=== PATIENT | female | born 1940 | race Caucasian/White ===

== ENCOUNTER 2023-05-17 15:04 | Outpatient (OUT) | payer MEDICARE, BC, SELFPAY ==
--- NOTE | 2023-05-17 15:40 | CT_ITS ---
[address] [address] Patient Name: LAN NASH MRN: [id number] date: 1940 Sex: F Assigned Patient Location: CT Current Patient Location: CT Accession/Order Number: [id number] Exam Date: 05/17/2023 15:29 Report Date: 05/18/2023 08:44 At the request of: EDGAR BORJA Procedure: CT chest high res EXAMINATION: CT chest high res HISTORY: Interstitial pulmonary disease J84.9 COMPARISON: No relevant comparison available. TECHNIQUE: Axial images were obtained at 10 mm intervals during inspiration and expiration in the supine and prone positions. No IV contrast given. Dose reduction techniques were achieved by using automated exposure control and/or adjustment of mA and/or kV according to patient size and/or use of iterative reconstruction technique. FINDINGS: LUNGS: Emphysematous changes and moderate bronchiectasis throughout the lungs. Patchy opacities scattered throughout the lungs, probably peripheral distribution with some essentially stable and others change in configuration; suspected to represent atelectasis/consolidation and areas of scarring. PLEURA: No mass, effusion, or pneumothorax. ERIKA: No mass or adenopathy. MEDIASTINUM: No mass or adenopathy. CHEST WALL: No mass or axillary adenopathy LIMITED ABDOMEN: No suspicious findings. Limited images of the upper abdomen. OTHER: Negative. IMPRESSION: 1. Suspect slight progression of chronic interstitial changes, bronchiectasis, scattered areas of consolidation/atelectasis. Malignancy is felt less likely. Consider follow-up imaging in 6 months to document stability. Electronically authenticated by: YUKI FITZGERALD Date: 05/18/2023 08:44
== END 2023-05-17 15:05 ==
LOC: CT 15:07
PROVIDERS: PCP Family Medicine; Visit Provider Internal Medicine
DX: J84.9 Interstitial pulmonary disease, unspecified (principal)
CPT/HCPCS: 71250

== ENCOUNTER 2023-08-12 13:42 | Outpatient (OUT) | payer MEDICARE, BC, SELFPAY ==
--- NOTE | 2023-08-12 13:45 | CT_ITS ---
[address] [address] Patient Name: LAN NASH MRN: [id number] date: 1940 Sex: F Assigned Patient Location: CT Current Patient Location: CT Accession/Order Number: [id number] Exam Date: 08/12/2023 13:57 Report Date: 08/12/2023 18:38 At the request of: EDGAR BORJA Procedure: CT chest high res EXAMINATION: CT chest high res HISTORY: Interstitial pulmonary disease J84.9 COMPARISON: 05/17/2023 TECHNIQUE: Axial images were obtained at 10 mm intervals during inspiration and expiration in the supine and prone positions. No IV contrast given. Dose reduction techniques were achieved by using automated exposure control and/or adjustment of mA and/or kV according to patient size and/or use of iterative reconstruction technique. FINDINGS: LUNGS: Mild subpleural honeycombing with intralobular septal thickening. Mild bronchiectasis with peribronchial thickening. Patchy opacities largely with a peripheral predominance, grossly stable from the prior exam. PLEURA: No mass, effusion, or pneumothorax. ERIKA: No mass or adenopathy. MEDIASTINUM: No mass or adenopathy. CHEST WALL: No mass or axillary adenopathy LIMITED ABDOMEN: No suspicious findings. Limited images of the upper abdomen. OTHER: Moderate coronary atherosclerosis. CT/CT chest high res IMPRESSION: Chronic interstitial disease bronchiectasis and emphysema, grossly stable from the prior exam Electronically authenticated by: BEV VERDIN Date: 08/12/2023 18:38
== END 2023-08-12 13:43 | disposition home or self-care (01) ==
LOC: CT 13:42
PROVIDERS: PCP Family Medicine; Visit Provider Internal Medicine
DX: J84.9 Interstitial pulmonary disease, unspecified (principal)
CPT/HCPCS: 71250

== ENCOUNTER 2023-08-19 12:10 | Outpatient (OUT) | payer MEDICARE, BC, SELFPAY ==
--- NOTE | 2023-08-19 | XR_ITS ---
The [address] [address] Patient Name: LAN NASH MRN: [id number] date: 1940 Sex: F Assigned Patient Location: [facility] Current Patient Location: [facility] Accession/Order Number: [id number] Exam Date: 08/19/2023 12:30 Report Date: 08/19/2023 13:05 At the request of: NATACHA ONEILL Procedure: XR shoulder RT min 2V PROCEDURE: XR shoulder RT min 2V HISTORY: Right shoulder pain after fall COMPARISON: None. FINDINGS: BONES:Narrowing of the acromioclavicular joint and undersurface osteophytes. Unremarkable humeral head and glenoid. SOFT TISSUES:No visible soft tissue swelling. EFFUSION:None visible. OTHER: Negative. XR/XR shoulder RT min 2V IMPRESSION: 1. No acute bone abnormality. 2. Degenerative changes predominantly involving the acromioclavicular joint. Electronically authenticated by: YUKI FITZGERALD Date: 08/19/2023 13:05
== END 2023-08-19 12:11 | disposition home or self-care (01) ==
LOC: RAD 12:14
PROVIDERS: PCP Family Medicine; Visit Provider Family Medicine
DX: M25.511 Pain in right shoulder (principal)
CPT/HCPCS: 73030

== ENCOUNTER 2023-11-23 13:02 | Outpatient (OUT) | payer MEDICARE, BC, SELFPAY ==
--- NOTE | 2023-11-23 13:04 | CT_ITS ---
[address] [address] Patient Name: LAN NASH MRN: [id number] date: 1940 Sex: F Assigned Patient Location: CT Current Patient Location: CT Accession/Order Number: [id number] Exam Date: 11/23/2023 13:09 Report Date: 11/25/2023 06:27 At the request of: EDGAR BORJA Procedure: CT chest high res EXAMINATION: CT chest high res HISTORY: Interstitial Pulmonary Disease J84.9 COMPARISON: CT chest high-resolution 08/12/2023 TECHNIQUE: Axial images were obtained at 10 mm intervals during inspiration and expiration in the supine and prone positions. No IV contrast given. Dose reduction techniques were achieved by using automated exposure control and/or adjustment of mA and/or kV according to patient size and/or use of iterative reconstruction technique. FINDINGS: LUNGS: Stable moderate chronic interstitial changes, peripheral scarring, mild bronchiectasis, and mild emphysematous changes. PLEURA: Stable scattered areas of pleural thickening. No pleural effusion or pneumothorax. ERIKA: No mass or adenopathy. MEDIASTINUM: No mass or adenopathy. Atherosclerotic coronary artery disease. No pericardial effusion. CHEST WALL: No mass or axillary adenopathy LIMITED ABDOMEN: No suspicious findings. Limited images of the upper abdomen. OTHER: Negative. CT/CT chest high res IMPRESSION: 1. Grossly stable moderate chronic interstitial changes, mild bronchiectasis, emphysematous changes. 2. No appreciable acute infiltrates. Electronically authenticated by: YUKI FITZGERALD Date: 11/25/2023 06:27
== END 2023-11-23 13:03 | disposition home or self-care (01) ==
LOC: CT 13:02
PROVIDERS: PCP Family Medicine; Visit Provider Internal Medicine
DX: J84.9 Interstitial pulmonary disease, unspecified (principal)
CPT/HCPCS: 71250

== ENCOUNTER 2024-02-10 10:08 | Outpatient (RCR) | payer MEDICARE, BC, SELFPAY | END 2024-04-18 16:35 | disposition home or self-care (01) | LOC: PT 10:08 | PROVIDERS: PCP Family Medicine; Visit Provider Family Medicine | DX: R53.1 Weakness (principal); J84.9 Interstitial pulmonary disease, unspecified; E87.1 Hypo-osmolality and hyponatremia | CPT/HCPCS: 97110; 97112; 97163; 97530 ==

== ENCOUNTER 2024-03-13 10:53 | Outpatient (OUT) | payer MEDICARE, BC, SELFPAY ==
--- NOTE | 2024-03-13 10:55 | MM_ITS ---
Patient Name: LAN NASH MR#: [id number] : 1940 Exam Date: 03/13/2024 Ordering Doctor: Non-Staff Physician RADIOLOGY REPORT PROCEDURE: MM TOMOSYNTHESIS SCREENING BI COMPARISON: MG MAMM SCREEN 3D ISAMAR CAD, 03/11/2023. MAMMO POST BIOPSY LEFT, 04/20/2022. INDICATIONS: screening Calculator Name NCI Breast Cancer Risk Assessment Tool 5 Year Breast Cancer Risk 1.20% Lifetime Breast Cancer Risk 1.30% Personal Breast Cancer No Personal Ovarian Cancer No Treatments None Family Cancers Mother with colon cancer at age ~80; Father with lung cancer at age ~60. LOCATION: [facility] BREAST COMPOSITION: Scattered areas fibroglandular density. FINDINGS: DIAGNOSTIC CATEGORY 2--BENIGN FINDING. NO CHANGE FROM COMPARISON. Scattered benign-appearing nodules are present. Scattered benign-appearing calcifications are present. Scattered benign-appearing lymph nodes are present. RIGHT BREAST: No significant suspicious finding. LEFT BREAST: No significant suspicious finding. RECOMMENDATIONS: ROUTINE MAMMOGRAM AND CLINICAL EVALUATION IN 12 MONTHS. PLEASE NOTE: A NORMAL MAMMOGRAM DOES NOT EXCLUDE THE POSSIBILITY OF BREAST CANCER. A CLINICALLY SUSPICIOUS PALPABLE LUMP SHOULD BE BIOPSIED. Dictated by: Jaron Cortez MD on 03/13/2024 at 13:07 Approved by: Jaron Cortez MD on 03/13/2024 at 13:08
== END 2024-03-13 10:54 | disposition home or self-care (01) ==
LOC: MAMMO 10:53
PROVIDERS: PCP Family Medicine
DX: Z12.31 Encounter for screening mammogram for malignant neoplasm of breast (principal); Z80.0 Family history of malignant neoplasm of digestive organs; Z80.1 Family history of malignant neoplasm of trachea, bronchus and lung
CPT/HCPCS: 77063; 77067

== ENCOUNTER 2024-05-09 09:56 | Outpatient (OUT) | payer MEDICARE, BC, SELFPAY ==
--- NOTE | 2024-05-09 10:04 | XR_ITS ---
[address] [address] Patient Name: LAN NASH MRN: [id number] date: 1940 Sex: F Assigned Patient Location: [facility] Current Patient Location: [facility] Accession/Order Number: [id number] Exam Date: 05/09/2024 10:06 Report Date: 05/09/2024 10:46 At the request of: BRYANT Lin APLJOSE Procedure: XR DEXA axial skeleton EXAMINATION: XR DEXA axial skeleton, 05/09/2024 10:06 AM EDT HISTORY: Osteoporosis M81.0 COMPARISON: Prior studies the latest 2021 and 2019 TECHNIQUE: Dual-energy X-ray absorptiometry (DEXA) bone density study performed for the axial skeleton. HISTORY: Osteoporosis M81.0 FINDINGS: Bone mineral density of the left forearm radius is 0.452 g/sq cm. T score -2.0. WHO classification: Osteopenia. Bone mineral density right femoral neck measures 0.800 g/sq cm. T score -1.7. The region classification: Osteopenia XR/XR DEXA axial skeleton IMPRESSION: Osteopenia. Moderate fracture risk Electronically authenticated by: BEV VERDIN Date: 05/09/2024 10:46
== END 2024-05-09 09:57 | disposition home or self-care (01) ==
LOC: RAD 09:58
PROVIDERS: PCP Family Medicine; Visit Provider Nurse Practitioner Family
DX: M81.0 Age-related osteoporosis without current pathological fracture (principal); M85.80 Other specified disorders of bone density and structure, unspecified site
CPT/HCPCS: 77080

== ENCOUNTER 2024-05-16 11:34 | Outpatient (OUT) | payer MEDICARE, BC, SELFPAY | END 2024-05-16 11:35 | disposition home or self-care (01) | LOC: LAB 11:38 | PROVIDERS: PCP Family Medicine; Visit Provider Nurse Practitioner Family | DX: M81.0 Age-related osteoporosis without current pathological fracture (principal) | CPT/HCPCS: 36415; 82306 ==

== ENCOUNTER 2024-10-10 14:24 | Outpatient (OUT) | payer MEDICARE, BC, SELFPAY ==
--- NOTE | 2024-10-10 15:12 | XR_ITS ---
The [address] [address] Patient Name: LAN NASH MRN: [id number] date: 1940 Sex: F Assigned Patient Location: LAB Current Patient Location: Accession/Order Number: [id number] Exam Date: 10/10/2024 15:17 Report Date: 10/11/2024 10:48 At the request of: NATACHA ONEILL Procedure: XR chest 2V EXAMINATION: XR chest 2V HISTORY: Cough COMPARISON: 03/23/2023 TECHNIQUE: PA and lateral FINDINGS: LUNGS: Moderately increased interstitial lung markings, significantly progressed from the prior exam VASCULATURE: No increased pulmonary vasculature. PLEURA: No pneumothorax, effusion, or pleural thickening. CARDIAC: No cardiomegaly or cardiac silhouette abnormality. MEDIASTINUM: No visible mass or adenopathy. Aortic atherosclerosis BONES: Moderate degenerative changes. T10 wedge compression fracture with kyphoplasty, stable OTHER: Negative. XR/XR chest 2V IMPRESSION: Progression of interstitial lung disease Electronically authenticated by: BEV VERDIN Date: 10/11/2024 10:48
== END 2024-10-10 14:25 | disposition home or self-care (01) ==
LOC: LAB 14:29
PROVIDERS: PCP Family Medicine; Visit Provider Family Medicine
DX: R05.9 Cough, unspecified (principal); J84.9 Interstitial pulmonary disease, unspecified
CPT/HCPCS: 71046

== ENCOUNTER 2024-11-28 08:22 | Outpatient (OUT) | payer MEDICARE, BC, SELFPAY ==
--- NOTE | 2024-11-28 08:29 | CT_ITS ---
[address] [address] Patient Name: LAN NASH MRN: [id number] date: 1940 Sex: F Assigned Patient Location: CT Current Patient Location: Accession/Order Number: [id number] Exam Date: 11/28/2024 08:50 Report Date: 11/29/2024 04:43 At the request of: EDGAR BORJA Procedure: CT chest high res EXAMINATION: CT chest high res HISTORY: Interstitial Pulmonary Disease COMPARISON: CT chest high-resolution 11/23/2023 TECHNIQUE: Axial images were obtained at 10 mm intervals during inspiration and expiration in the supine and prone positions. No IV contrast given. Dose reduction techniques were achieved by using automated exposure control and/or adjustment of mA and/or kV according to patient size and/or use of iterative reconstruction technique. FINDINGS: LUNGS: Prominent chronic interstitial changes, bronchiectasis, and peripheral scarring. Mild emphysematous changes. No appreciable masses. PLEURA: Stable scattered areas of pleural thickening/scarring. No pleural effusion. ERIKA: No mass or adenopathy. MEDIASTINUM: No mass or adenopathy. HEART: Cardiomegaly. No pericardial effusion. Coronary arteries: Moderate AORTA: No aneurysm.. CHEST WALL: No mass or axillary adenopathy LIMITED ABDOMEN: No suspicious findings. Limited images of the upper abdomen. OTHER: Negative. CT/CT chest high res IMPRESSION: 1. Grossly stable prominent chronic interstitial changes. Stable bronchiectasis and emphysematous changes. 2. No appreciable acute infiltrates or suspicious nodules. Electronically authenticated by: YUKI FITZGERALD Date: 11/29/2024 04:43
[2024-11-28 09:22] LABS: Hemoglobin 12.8 g/dL (12.0-16.0)
--- NOTE | 2024-11-28 10:39 | RT_ITS ---
The [facility] Test Date: 2024-11-28 Pat Name: LAN NASH Department: Room: - Gender: Female [employer] Curator: Martina Franklin RRT : 1940 Requested By: Zay Jean-Baptiste Order Number: [id number] Reading MD: Zay Jean-Baptiste Interpretive Statements Pulmonary function testing was completed according to ATS criteria. Findings were considered accurate and reproducible, with exception of DLCO which did not meet ATS standards. No bronchodilator was administered due to normal spirometric values. Spirometry: -FEV1/FVC: Normal @ 87% -FEV1: Normal @ 111% -FVC: Normal @ 93% Lung volumes by plethysmography: -RV: Normal @ 101% -TLC: Normal @ 87% Diffusion capacity: -DLCO: Moderate reduction @ 59% when corrected for Hb 12.8g/dL Comparison from 04/07/2023: -FEV1: 102% -T% -DLCO: 60% Impressions: -Normal spirometry and lung volumes. Isolated moderate diffusion impairment. This pattern can be seen in ILD. PFT is essentially unchanged from 04/07/2023. Clinical correlation required. Electronically Signed On 11-30-2024 13:16:02 EST by Zay Jean-Baptiste
== END 2024-11-28 08:23 | disposition home or self-care (01) ==
PROVIDERS: PCP Family Medicine; Visit Provider Internal Medicine
DX: J84.9 Interstitial pulmonary disease, unspecified (principal); J47.9 Bronchiectasis, uncomplicated
CPT/HCPCS: 36415; 71250; 85018; 94010; 94726; 94729

== ENCOUNTER 2025-05-16 10:53 | Outpatient (RCR) | payer MEDICARE, BC, SELFPAY | END 2025-06-14 06:52 | disposition home or self-care (01) | LOC: PT 10:53 | PROVIDERS: PCP Family Medicine; Visit Provider Family Medicine | DX: M79.603 Pain in arm, unspecified (principal); M79.601 Pain in right arm | CPT/HCPCS: 97110; 97162 ==

== ENCOUNTER 2025-10-04 12:28 | Outpatient (OUT) | payer MEDICARE, BC, SELFPAY ==
--- OUTSIDE RECORDS SUMMARY | 2025-09-27 14:15 | XMS_ITS | Encounter Summary ---
Author Organization [facility] Address [address] [place] [address] Care Team Providers Care Market Superintendent Name Role Phone Ron Miramontes MD Primary Care Provider [phone] Kay Huerta Unavailable Reason for Visit * ReasonCommentsCough2 month follow up Encounter Details DateTypeDepartmentCare Team (Latest Contact Info)Dcvzsccapjp61/30/2025 3:15 PM EDTOffice Visit [facility] [address] [place] [phone] Evita Fitzgerald, [address] [place] [address] Chronic cough (Primary Dx); ILD (interstitial lung disease) (HCC) Social History Tobacco UseTypesPacks/DayYears UsedDateSmoking Tobacco: FormerCigarettes Smokeless Tobacco: NeverAlcohol UseStandard Drinks/WeekCommentsNot Currently0 (1 standard drink = 0.6 oz pure alcohol)AUDIT-CAnswerDate RecordedQ1: How often do you have a drink containing alcohol?Never03/16/2024Q2: How many drinks containing alcohol do you have on a typical day when you are drinking?Patient does not drink03/16/2024Q3: How often do you have six or more drinks on one occasion?Never03/16/2024CommentsUnknownSex and Gender InformationValue Date RecordedSex Assigned at BirthNot on fileLegal RcqWremzp04/15/2023 6:37 PM EDTGender IdentityNot on fileSexual OrientationNot on filedocumented as of this encounter Last Filed Vital Signs Vital SignReadingTime TakenCommentsBlood Teqcpivm483/7260409/27/2025 3:14 PM EDT Uzcqd876509/27/2025 3:14 PM EDTTemperature--Respiratory Rate--Oxygen Pxairsvrzf82% 09/27/2025 3:14 PM EDTInhaled Oxygen Concentration--Vbkshg11.7 kg (147 lb) 09/27/2025 3:14 PM CIPBqoxfu053.4 cm (5')09/27/2025 3:14 PM EDTBody Mass Index 28.7109/27/2025 3:14 PM EDTdocumented in this encounter Progress Notes * Evita Collado Lia, DO - 09/27/2025 3:15 PM EDT Images from the original note were not included. Michelle Luke Savanah presents today for follow up on cough and interstitial lung disease. She is accompanied by her and daughter at today's office visit. She states that she has been using the increased dose of gabapentin but has not notice much change in her complaints of a cough. She does continue to complain of cough with conversation. She states that she has been using the cough syrup at night and does overall note that this is help. Her does also state that she does not have much of a cough at night when she is sleeping. He does note that this occurs mostly when she is awake throughout the day and potentially having conversation. The patient denies any complaints of shortness breath at rest or with exertion. Her last CT scan of her chest was done in February. At that time there were no significant changes in regards to her interstitial lung disease. She does use her cough syrup regularly. She does remain frustrated in regards to her complaints of a cough. Her does as well. She denies any current complaints of chest pain, palpitations, fevers, chills, sweats, or recent unintentional weight changes. Allergies: Allergies[1] Medications: Current Medications[2] Past Medical History: Medical History[3] Social History: Social History Tobacco Use Smoking status: Former Types: Cigarettes Smokeless tobacco: Never Substance Use Topics Alcohol use: Not Currently Vitals: BP (!) 205/152 (BP Location: Left arm, Patient Position: Sitting) Pulse 74 Ht 5' Wt 147 lb SpO2 93% BMI 28.71 kg/m?? Exam: Heart: regular rate Lungs: clear to auscultation bilaterally, no wheezes/rales/rhonchi, no resp distress Extremities: no edema noted, no visible rashes Neuro: alert, oriented x3 Imaging Reviewed: None Assessment/Plan: Diagnoses and all orders for this visit: Chronic cough - XR chest 2 views; Future - amitriptyline (Elavil) 10 MG tablet; Take 1 tablet (10 mg) by mouth as needed at bedtime (cough) Do not start before October 03, 2025. ILD (interstitial lung disease) (HCC) - XR chest 2 views; Future Cough -- she does continue to complain of a cough. She has had increase in her dose of gabapentin but has not notice any improvement. Initially I do recall that she reported some improvement of coughwith the gabapentin, but nothing recently. Given this, we discussed switching to amitriptyline. Shewas given scheduled to switch to amitriptyline. A prescription for this medication will be sent to the pharmacy. She did also request a refill in her cough syrup. She does use this only at night to help her sleep. We also discussed obtaining a repeat chest x-ray, although her radiographic studies have all remained stable. Her daughter did question whether she has component of bronchitis or pneumonia. Given the length of her cough I do not feel that this is infectious in nature. However the chest x-ray will help determine whether there are any other changes noted. We also discussed the possibility of prednisone, however the patient is reluctant to use this medication given it does elevate her blood sugar. She will follow here once her x-ray is completed and she is given Elavil a trial in re gards to her current symptoms. The patient and her family understand the plan and are agreeable. ILD -- her last imaging was in February. This was a CT scan of her chest. She will have a follow-up chest x-ray performed. The order was sent to the [facility] today at her request. Follow up in about 3 months (around 12/28/2025) for cough. Evita Fitzgerald DO [1] Allergies Allergen Reactions Aminolevulinic Acid Other AOF Nitroglycerin Other low blood pressure [2] Current Outpatient Medications: albuterol HFA 90 mcg/act inhaler, , Disp: , Rfl: aspirin 81 MG chewable tablet, Chew Daily, Disp: , Rfl: atorvastatin (Lipitor) 10 MG tablet, Take 10 mg by mouth, Disp: , Rfl: BD Pen Needle Xiao 2nd Gen 32G X 4 MM misc, , Disp: , Rfl: Blood Glucose Monitoring Suppl (SurfAir Verio Flex System) w/Device kit, , Disp: , Rfl: cetirizine-pseudoephedrine (ZyrTEC-D) 5-120 MG 12 hr tablet, Take 1 tablet by mouth in the morning and 1 tablet before bedtime., Disp: , Rfl: cholecalciferol (Vitamin D3) 25 MCG (1000 UT) tablet, 1 (one) time each day at the same time, Disp:, Rfl: Continuous Glucose Instructor Physical (FreeStyle Fany 2 [place]) device, , Disp: , Rfl: Continuous Glucose Sensor (FreeStyle Fany 2 Sensor) [facility], , Disp: , Rfl: gabapentin (Neurontin) 100 MG capsule, Take 2 capsules (200 mg) by mouth at bedtime, Disp: 60 capsule, Rfl: 2 glucagon (Gvoke HypoPen 1-Pack) 1 MG/0.2ML injection, Inject 0.2 mL (1 mg) under the skin 1 (one) time if needed for low blood sugar, Disp: 1 each, Rfl: 1 guaiFENesin-codeine (Robitussin-AC) 100-10 MG/5ML syrup, , Disp: , Rfl: Gvoke HypoPen 2-Pack 1 MG/0.2ML injection, Inject 1 mg under the skin 1 (one) time if needed, Disp:, Rfl: insulin glargine (Lantus SoloStar) 100 UNIT/ML pen, INJECT 10 UNITS UNDER THE SKIN EVERY DAY AT BEDTIME, Disp: 15 mL, Rfl: 1 insulin lispro (HumaLOG KWIKPEN) 100 UNIT/ML injection, INJECT 3 UNITS BEFORE MEALS PLUS ISS. (EXPECT DAILY DOSE 20 UNITS), Disp: 15 mL, Rfl: 1 Lancets (Blue Vector SystemsTouch Delica Plus [id number]) misc, , Disp: , Rfl: losartan (Cozaar) 50 MG tablet, Take 50 mg by mouth in the morning., Disp: , Rfl: Multiple Vitamins-Minerals (PRESERVISION AREDS PO), Take by mouth, Disp: , Rfl: omeprazole (PriLOSEC) [address] capsule, Take 20 mg by mouth in the morning and 20 mg in the evening. Take before meals. Do not crush or chew., Disp: , Rfl: propranolol (Inderal) 60 MG tablet, Take 60 mg by mouth in the morning., Disp: , Rfl: tiZANidine (Zanaflex) 4 MG tablet, Take 4 mg by mouth every 6 (six) hours if needed for muscle spasms, Disp: , Rfl: traZODone (Desyrel) 50 MG tablet, , Disp: , Rfl: [START ON 10/03/2025] amitriptyline (Elavil) 10 MG tablet, Take 1 tablet (10 mg) by mouth as needed at bedtime (cough) Do not start before October 03, 2025., Disp: 30 tablet, Rfl: 2 budesonide-formoterol (Symbicort) 160-4.5 MCG/ACT inhaler, every 12 (twelve) hours (Patient not taking: Reported on 09/27/2025), Disp: , Rfl: empagliflozin (Jardiance) 10 MG, Oral; Duration: 30 Days (Patient not taking: Reported on 09/27/2025), Disp: , Rfl: fluconazole (Diflucan) 150 MG tablet, Take 150 mg by mouth 1 (one) time (Patient not taking: Reported on 09/27/2025), Disp: , Rfl: ibandronate (Boniva) 150 MG tablet, Take 1 tablet (150 mg) by mouth every 30 (thirty) days Take in morning with full glass of water on an empty stomach. No food, drink, meds, or lying down for 60 minutes after., Disp: 1 tablet, Rfl: 11 [3] Past Medical History: Diagnosis Date Abnormal mammogram 03/06/2025 Anxiety 01/03/2024 Arthritis Arthritis of back 03/06/2025 Atherosclerosis of abdominal aorta 03/06/2025 added per 02/11/2025 query response. Back pain 03/06/2025 BMI 26.0-26.9,adult 03/06/2025 Bronchiectasis (HCC) 03/06/2025 noted in 12/05/2024 Pulmonology Consult Note page 1. added per OP [facility]I policy. Bronchiolectasis ([facility]) 09/27/2025 Centrilobular emphysema ([facility]) 03/06/2025 noted in 12/05/2024 Pulmonology Consult Note page 1. added per OP CDI policy. Constipation 03/06/2025 Cough 03/06/2025 Cramps of lower extremity 03/06/2025 Diabetes ([facility]) Dizziness 03/06/2025 Essential (primary) hypertension 06/15/2024 Female cystocele Former smoker 01/03/2024 Former tobacco use 09/27/2025 Gastro-esophageal reflux disease without esophagitis 06/15/2024 Gastroesophageal reflux disease 09/27/2025 GERD (gastroesophageal reflux disease) 01/03/2024 Heartburn 03/06/2025 History of falling 06/22/2024 History of small bowel obstruction 03/06/2025 added per 02/11/2025 query response. HLD (hyperlipidemia) 01/03/2024 Hospital discharge follow-up 03/06/2025 Hx of being hospitalized Fall due to brain bleed Hyperlipemia Hyperlipidemia 09/26/2025 Hyperlipidemia, unspecified 06/15/2024 Hypertension Hypoglycemia, unspecified Hyponatremia 03/06/2025 Hypovitaminosis D Interstitial lung disease ([facility]) 01/03/2024 Interstitial pulmonary disease, unspecified ([facility]) 06/15/2024 buttermaker (current) use of antithrombotics/antiplatelets 06/22/2024 detention (current) use of insulin ([facility]) detention current use of inhaled steroid 03/06/2025 noted in 12/05/2024 Pulmonology Consult Note page 1. added per OP CDI policy. detention current use of insulin ([facility]) 01/03/2024 Current Medication List includes Lantus and Humalog. added per OP CDI policy. detention current use of systemic steroids 01/03/2024 Major depressive disorder, recurrent, in full remission 06/15/2024 Malnutrition ([facility]) 03/06/2025 Migraine 03/06/2025 Migraines Multiple falls 01/03/2024 Nausea 06/18/2024 Nonexudative age-related macular degeneration 01/03/2024 noted in 05/03/2023 Diabetic Eye Exam page 3. added per OP [facility]I policy. 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 Peripheral vascular insufficiency 03/06/2025 Personal history of nicotine dependence 06/22/2024 Pertussis 09/27/2025 Piriformis syndrome of left side 03/06/2025 Pitting edema 03/06/2025 Recurrent major depression in full remission 01/03/2024 added per 09/28/2023 query response. SAH (subarachnoid hemorrhage) ([facility]) 01/03/2024 SBO (small bowel obstruction) ([facility]) 03/06/2025 SDH (subdural hematoma) ([facility]) 01/03/2024 Seasonal allergies 03/06/2025 Shoulder pain, right 03/06/2025 Stress incontinence (female) (male) 06/22/2024 Tumor pancreas Type 2 diabetes mellitus ([facility]) 01/03/2024 linked DM with HLD per OP CDI policy. Type 2 diabetes mellitus with hyperglycemia ([facility]) 2013 Type 2 diabetes mellitus with other specified complication ([facility]) 06/15/2024 Undernutrition 09/26/2025 Unspecified intestinal obstruction, unspecified as to partial versus complete obstruction ([facility]) 06/15/2024 Uterine prolapse UTI symptoms 03/06/2025 Vitamin D deficiency Weakness 03/06/2025 Yeast infection 03/06/2025 documented in this encounter Plan of Treatment DateTypeDepartmentCare Team (Latest Contact Info)Uoocgsojcpp01/13/2026 11:10 AM ESTOffice Visit [facility] [address] [place] [address] Duc Joshi MD [address] [place] [address] 01/03/2026 3:00 PM ESTOffice Visit [facility] [place] [facility] [address] [place] [address] Evita Fitzgerald DO [address] [place] [address] 03/19/2026 11:40 AM EDTOffice Visit [facility] [address] [phone] Bethany Wells NP [address] [place] [address] NameTypePriorityAssociated DiagnosesOrder ScheduleXR chest 2 viewsImagingRoutine Chronic cough ILD (interstitial lung disease) (HCC) Expected: 09/27/2025, Expires: 09/27/2026documented as of this encounter Visit Diagnoses Diagnosis Chronic cough- Primary Cough ILD (interstitial lung disease) (HCC) Postinflammatory pulmonary fibrosis documented in this encounter Care Teams Team MemberRelationshipSpecialtyStart DateEnd Date Ron Miramontes MD [address], [place] [id number] PCP - GeneralFamily Medicine02/19/25 Kay Huerta PA [address] [place] [address] Physician AssistantNeurology02/19/25documented as of this encounter
--- OUTSIDE RECORDS SUMMARY | 2025-10-04 12:36 | XMS_ITS | Encounter Summary ---
Author Organization [facility] Address [address] [place] [address] Care Team Providers Care Production Underwriter Name Role Phone Ron Miramontes MD Primary Care Provider [phone] Kay Huerta Unavailable Encounter Details DateTypeDepartmentCare Team (Latest Contact Info)Cdctfjeiuix76/30/2025Travel Social History Tobacco UseTypesPacks/DayYears UsedDateSmoking Tobacco: FormerCigarettes [...] Date RecordedSex Assigned at BirthNot on fileLegal YroGqztte88/15/2023 6:37 PM EDTGender IdentityNot on fileSexual OrientationNot on filedocumented as of this encounter Plan of Treatment DateTypeDepartmentCare Team (Latest Contact Info)Zmprllnvwlu21/13/2026 11:10 AM ESTOffice Visit [facility] [address] [place] [address] Duc Joshi MD [address] [place] [address] 01/03/2026 3:00 PM ESTOffice Visit [facility] [address] [place] [address] Evita Fitzgerald, [address] [place] [address] 03/19/2026 11:40 AM EDTOffice Visit [facility] [address] [phone] Bethany Wells NP [address] [place] [address] documented as of this encounter Visit Diagnoses Not on filedocumented in this encounter Care Teams Team MemberRelationshipSpecialtyStart DateEnd Date Ron Miramontes MD [address] [place] [address] PCP - GeneralFamily Medicine02/19/25 Kay Huerta PA [address] [place] [address] Physician AssistantNeurology02/19/25documented as of this encounter
--- OUTSIDE RECORDS SUMMARY | 2025-10-04 12:36 | XMS_ITS | Clinical Summary ---
Author Organization [facility] Address [address] [place] [address] Care Team Providers Care Solar Sales Name Role Phone Unavailable Primary Care Provider Unavailabl e Social History Tobacco UseTypesPacks/DayYears UsedDateSmoking Tobacco: Never Assessed CommentsUnknownSex and Gender InformationValueDate RecordedSex Assigned at Not on fileLegal BxvWazzlg52/30/2022 12:27 AM EDTGender IdentityNot on file Sexual OrientationNot on file Plan of Treatment Not on file
--- OUTSIDE RECORDS SUMMARY | 2025-10-04 12:36 | XMS_ITS | Continuity of Care Document ---
Author Organization [facility], Kavitha albarran. Address [address] [place] [id number] Phone [phone] Care Team Providers Care Station Supervisor Name Role Phone Ron Miramontes M.D. Care Team Information Nurse Consultant [phone] Assessments Date Code Description Provider 09/20/2023 E87.1 Hypo-osmolality and hyponatr emia Espinoza Quintanilla M.D. 09/20/2023 E11.22 Type 2 diabetes mellitus with diabetic chronic kidney disease Espinoza Quintanilla M.D. 09/20/2023 I10 Essential (primary) hyperten paris Espinoza Quintanilla M.D. 09/20/2023 R53.1 Weakness Lucio Sim
--- OUTSIDE RECORDS SUMMARY | 2025-10-04 12:36 | XMS_ITS | Clinical Summary ---
Author Organization [facility] Address [address] [facility] [place] [address] Care Team Providers Care Rn Documentation Specialist Name Role Phone Unavailable Primary Care Provider Unavailabl e Source Comments The following information is NOT included in Care Everywhere downloads:Psychiatric notes, ECG results, Cardiac Rehab notes, Pulmonary Function notes, data from SmartForms (includes but not limited toPregnancy data,audiograms, eye exams, pre-surgical evaluation notes, well-child exam data).[facility] Medications MedicationSigDispense QuantityRefillsLast FilledStart DateEnd DateStatus albuterol (PROVENTIL HFA) INHALATION HFA inhaler (VENTOLIN,PROAIR,PROVENTIL) 90mcg Inhale 2 Puffs by mouth every 4 hours as needed for Other (cough).02/08/2023 Active losartan (COZAAR) 50 MG tablet Take 50 mg by mouth daily.07/05/2023ctive Propranolol HCl 60 MG TABS Take 60 mg by mouth daily.09/09/2023ctive budesonide-formoterol (Symbicort) 160-4.5 MCG/ACT inhaler Inhale 2 Puffs by mouth 2 times daily.02/08/2023ctive metformin (GLUCOPHAGE) 500 MG tablet Take 500 mg by mouth 2 times daily (with meals).Active amitriptyline (ELAVIL) 10 MG tablet Take 10 mg by mouth at bedtime.04/08/2022ctive ALPRAZolam (XANAX) 0.25 MG tablet Take 0.25 mg by mouth 2 times daily.06/21/2023ctive atorvastatin (LIPITOR) 10 MG tablet Take 10 mg by mouth daily.04/08/2022ctive levetiracetam (KEPPRA) 750 MG tablet Take 1 Tablet by mouth 2 times daily for 10 doses. 10 Tablet 01/05/2024ctive Active Problems ProblemNoted DateDiagnosed DateSAH (subarachnoid hemorrhage)01/03/2024SDH (subdural hematoma)01/03/20249559Krxqldd14/05/2024Former iuesht5201/03/2024GERD (gastroesophageal reflux disease)01/03/2024HLD (hyperlipidemia)01/03/2024HTN (hypertension)01/03/2024Interstitial lung ypzjlkr4401/03/2024Long term current use of eubjptk2201/03/2024 Overview (01/03/2024): Current Medication List includes Lantus and Humalog. added per OP CDI policy. assisted current use of systemic tacgqinv86/05/2024Multiple falls01/03/2024 Nonexudative age-related macular adousmocdlml71/05/2024 Overview (01/03/2024): noted in 05/03/2023 Diabetic Eye Exam page 3. added per OP CDI policy. Vvcunxyivi45/05/2024ecurrent major depression in full qhpitcjid23/05/2024 Overview (01/03/2024): added per 09/28/2023 query response. Type 2 diabetes gfkdaylb64/05/2024 Overview (01/03/2024): linked DM with HLD per OP CDI policy. Immunizations ImmunizationAdministration DatesNext DueInfluenza, injectable, adjuvanted, quadrivalent, preservative free (YYF=541)10/19/2023Influenza, injectable, high- dose seasonal, quadrivalent, preservative free (GFJ=406)09/06/2022,09/20/2021 Influenza, intranasal, live, trivalent (LAIV3) (YIK=373)08/21/2019Pneumococcal conjugate 20 valent (PCV20), polysaccharide ZEU657 conjugate, adjuvant, PF (QZB=927)11/03/2023neumococcal polysaccharide 23 Valent (PPSV23) (CVX=33) 10/07/2005Respiratory syncytial virus (RSV), vaccine, recombinant, protein subunit RSV prefusion F, adjuvant reconstituted, 0.5 mL, preservative free (KYZ=651)11/17/2023Zoster Recombinant (RZV,Shingles) (CKS=012)08/26/2019 Social History Tobacco UseTypesPacks/DayYears UsedDateSmoking Tobacco: Never AssessedHunger Vital SignAnswerDate RecordedWithin the past 12 months, you worried that your food would run out before you got the money to buymore.Never true01/05/2024 Within the past 12 months, the food you bought just didn't last and you didn't have money to get more.Never true01/05/2024RAPARE - TransportationAnswerDate RecordedIn the past 12 months, has lack of transportation kept you from medical appointments or from getting medications?No01/05/2024In the past 12 months, has lack of transportation kept you from meetings, work, or from getting things needed for daily living?No01/05/2024Housing Stability Vital SignAnswerDate RecordedIn the last 12 months, was there a time when you were not able to pay the mortgage or rent on time?No01/05/2024In the last 12 months, how many places have you lived?In the last 12 months, was there a time when you did not have a steady place to sleep or slept in [place] (including now)?No 01/05/2024CommentsUnknownSex and Gender InformationValueDate RecordedSex Assigned at BirthNot on fileLegal PlpDclxuo10/05/2024 1:59 AM ESTGender Identity Not on fileSexual OrientationNot on file Last Filed Vital Signs Vital SignReadingTime TakenCommentsBlood Ubnjyaht190/62001/05/2024 2:00 PM EST Jdfxc497201/05/2024 2:00 PM VABUckexbopbxa96.4 ??C (97.5 ??F)01/05/2024 2:00 PM ESTRespiratory Orta712201/05/2024 2:00 PM ESTOxygen Pcbsfdpahu41%01/05/2024 2:00 PM ESTInhaled Oxygen Concentration--Khcxqw07.9 kg (134 lb 4.8 oz)01/03/2024 5:00 AM SHXMpauop640.4 cm (5')01/03/2024 5:00 AM ESTBody Mass Index26.23001/03/2024 5:00 AM EST Plan of Treatment Health MaintenanceDue DateLast DoneCommentsFoot Exam1939Vitamin B12 1939Eye Exam1939Urine Protein (microalbumin)1939Tdap Booster 1957Hepatitis A (HAV) Vaccine (optional start 19+ years)1958 Hepatitis B (HBV) Vaccine (optional start 60+ years)1999Shingles (RZV) Vaccine (2 of 2)Lipid Muzsptf15//01/2023Hemoglobin A1C/nnual Wellness Visit (G0438)12/30/2024asic Metabolic Panel502/05/2024, 01/04/2024, 01/03/2024OVID-19 Vaccine ( season)/, 10/01/2021, 01/08/2021, Additional history exists Influenza Vaccine (#1)511/, 09/06/2022, 09/20/2021, Additional history existsBone FfrxjmirebtcGxyyjovfs05/05/2022neumococcal Vaccine(s) (50+ yrs)Ppplzghrl54/06/2023, 10/07/2005RSV vaccine (adult)Dbgiaynvs61/20/2023Pap SmearDiscontinued Procedures Procedure NamePriorityDate/TimeAssociated DiagnosisCommentsBASIC METABOLIC PANEL Guftfvy8301/05/2024 1:34 AM EST HEMOGLOBIN D6XQzbbztc90/07/2024 1:34 AM EST from Last 3 Months or Most Recently Relevant to Health Maintenance Results * (ABNORMAL) BASIC METABOLIC PANEL (01/05/2024 1:34 AM EST)ComponentValueRef RangeTest MethodAnalysis TimePerformed AtPathologist SpvnvsftxZkjmuti387(H)74 - 109 mg/dL01/05/2024 4:09 AM [facility] HKXXMYJICGLdmmhx826910 - 145 mmol/L01/05/2024 4:09 AM [facility] LABORATORYComment:Note updated reference ranges.Potassium4.53.5 - 5.0 mmol/L01/05/2024 4:09 AM [facility] LABORATORYComment: Note updated reference ranges. Note updated reference ranges. Carbon Szbppah9106 - 31 mmol/L01/05/2024 4:09 AM [facility] Comment:Note updated reference ranges.Xniwhtmy81354 - 107 mmol/L01/05/2024 4:09 AM [facility] LABORATORYComment:Note updated reference ranges.Blood Urea Qujpdtxh527 - 25 mg/dL01/05/2024 4:09 AM [facility] LABORATORYComment:Note updated reference ranges.Creatinine0.620.60 - 1.20 mg/dL01/05/2024 4:09 AM [facility] LABORATORYComment:Note updated reference ranges.Calcium9.18.6 - 10.3 mg/dL01/05/2024 4:09 AM [facility] LABORATORYComment:Note updated reference ranges.Anion Tqj8102 - 4:09 AM [facility] LABORATORYEstimated GFR (CKD-EPI)88>=60 mL/min/1.94jzi0001/05/2024 4:09 AM [facility] LABORATORYComment: 2020 CKD EPI Equation using Creatinine without Race Comment: ??Estimated glomerular filtration rate (eGFR) is calculated without a race coefficient. Values should be interpreted in the context of the patient's full clinical presentation. Reference: 1. Darrell C, Bairaidaja M, Patricia DC, et al.. A Unifying Approach for GFR Estimation: Recommendations of the NKF-ASN Task Force on Reassessing the Inclusion of Race in Diagnosing Kidney Disease. AmericanJournal of Kidney Diseases 202;79(2):268-88.e1. 2. N Engl J Med 1 Vol. 385 Issue 19 Pages 7493-7706 Specimen (Source)Anatomical Location / LateralityCollection Method / Volume Collection TimeReceived TimeBloodBLOOD SPECIMEN / UnknownVenipuncture / Unknown 01/05/2024 1:34 AM EST01/05/2024 3:44 AM EST Narrative Authorizing ProviderResult TypeResult StatusAndrés Santana MD98 GENERAL LABFinal ResultPerforming OrganizationAddressCity/State/ZIP CodePhone Number [facility] [address] [place] [address] * (ABNORMAL) HEMOGLOBIN A1C (01/05/2024 1:34 AM EST)ComponentValueRef RangeTest MethodAnalysis TimePerformed AtPathologist SignatureHemoglobin A1c8.1(H)4.0 - 5.6 %01/05/2024 4:06 PM [facility]OH[facility] LABORATORYEstimated Avg Ieyckgz014gb/dL01/05/2024 4:06 PM [facility] PATH[facility] LABORATORYSpecimen (Source)Anatomical Location / LateralityCollection Method / VolumeCollection TimeReceived TimeBloodBLOOD SPECIMEN / UnknownVenipuncture / Jyxrxko9601/05/2024 1:34 AM EST01/05/2024 3:42 AM EST Narrative Authorizing ProviderResult TypeResult StatusVerona Bean MD98 GENERAL LABFinal ResultPerforming OrganizationAddressCity/State/ZIP CodePhone Number [facility] [address] [place], [place] [address] from Last 3 Months or Most Recently Relevant to Health Maintenance Insurance Advance Directives * Full Code (Latest Code Status on File) Date ActivatedDate InactivatedComments01/03/2024 5:17 AM01/05/2024 8:14 PMQuestion AnswerCommentsDocumentation of decision process for this code status:* Discussed with patient or surrogate.?? This is the code status chosen by the patient/surrogate.
--- OUTSIDE RECORDS SUMMARY | 2025-10-04 12:37 | XMS_ITS | Clinical Summary ---
Author Organization [facility] Address [address] [facility] [place] [address] Care Team Providers Care Wall To Wall Carpet Installer Name Role Phone Ron Miramontes MD Primary Care Provider [phone] Kay Huerta Unavailable Allergies Active AllergyReactionsCriticalityNoted DateCommentsAminolevulinic AcidOther Btysed6204/16/2022 AOF VxvunkstrbrxlHsnasDexfwk08/17/2024 low blood pressure Medications MedicationSigDispense QuantityRefillsLast FilledStart DateEnd DateStatus traZODone (Desyrel) 50 MG tablet Active propranolol (Inderal) 60 MG tablet Take 60 mg by mouth in the morning.09/09/2023ctive losartan (Cozaar) 50 MG tablet Take 50 mg by mouth in the morning.07/05/2023ctive Lancets (Dhir Diamondsuch Delica Plus Hhwuhn01J) [facility] 07/14/2023ctive BD Pen Needle Xiao 2nd Gen 32G X 4 MM [facility] [place] 03/07/2024ctive guaiFENesin-codeine (Robitussin-AC) 100-10 MG/5ML syrup 03/18/2023ctive Continuous Glucose Sensor (FreeStyle Fany 2 Sensor) misc 02/23/2024ctive Continuous Glucose Change Person (FreeStyle Fany 2 [place]) device 12/28/2023ctive cholecalciferol (Vitamin D3) 25 MCG (1000 UT) tablet 1 (one) time each day at the same timeActive Blood Glucose Monitoring Suppl ([employer] Verio Flex System) w/Device kit 07/14/2023ctive budesonide-formoterol (Symbicort) 160-4.5 MCG/ACT inhaler every 12 (twelve) hoursActive atorvastatin (Lipitor) 10 MG tablet Take 10 mg by mouth09/09/2023ctive albuterol HFA 90 mcg/act inhaler Active omeprazole (PriLOSEC) [address] capsule Take 20 mg by mouth in the morning and 20 mg in the evening. Take before meals. Do not crush or chew.Active Multiple Vitamins-Minerals (PRESERVISION AREDS PO) Take by mouthActive ibandronate (Boniva) 150 MG tablet Indications:Osteoporosis, unspecified osteoporosis type, unspecified pathological fracture presenceTake 1 tablet (150 mg) by mouth every 30 (thirty) days Take in morning with full glass of water on an empty stomach. No food, drink, meds, or lying down for 60 minutes after. 1 tablet 11005/10/2024ctive Gvoke HypoPen 2-Pack 1 MG/0.2ML injection Inject 1 mg under the skin 1 (one) time if ahrjvz9309/29/2024ctive fluconazole (Diflucan) 150 MG tablet Take 150 mg by mouth 1 (one) time05/02/2024ctive insulin glargine (Lantus SoloStar) 100 UNIT/ML pen Indications:Type 2 diabetes mellitus with hyperglycemia, with long-term current use of insulin ([facility])INJECT 10 UNITS UNDER THE SKIN EVERY DAY AT BEDTIME 15 mL 5Active tiZANidine (Zanaflex) 4 MG tablet Take 4 mg by mouth every 6 (six) hours if needed for muscle spasmsActive cetirizine-pseudoephedrine (ZyrTEC-D) 5-120 MG 12 hr tablet Take 1 tablet by mouth in the morning and 1 tablet before bedtime.Active gabapentin (Neurontin) 100 MG capsule Indications:Chronic coughTake 2 capsules (200 mg) by mouth at bedtime 60 capsule 5Active glucagon (Gvoke HypoPen 1-Pack) 1 MG/0.2ML injection Indications:Type 2 diabetes mellitus with hyperglycemia, with long-term current use of insulin (HCC),HypoglycemiaInject 0.2 mL (1 mg) under the skin 1 (one) time if needed for low blood sugar 1 each 6Active insulin lispro (HumaLOG KWIKPEN) 100 UNIT/ML injection Indications:Type 2 diabetes mellitus with hyperglycemia (HCC)INJECT 3 UNITS BEFORE MEALS PLUS ISS. (EXPECT DAILY DOSE 20 UNITS) 15 mL tive empagliflozin (Jardiance) 10 MG Oral; Duration: 30 DaysActive aspirin 81 MG chewable tablet Chew DailyActive amitriptyline (Elavil) 10 MG tablet Indications:Chronic coughTake 1 tablet (10 mg) by mouth as needed at bedtime (cough) Do not start before October 03, 2025. 30 tablet 5Active Active Problems ProblemNoted DateDiagnosed DateAltered mental gqavxe7604/10/2024 Resolved Problems ProblemNoted DateDiagnosed DateResolved WhifExhnatcxflnsazoo98/30/202510/30/2025 Former tobacco useParietoalveolar fzejanwmrgt69/30/2025 09/27/20256606Ucrvfmukx94Gastroesophageal reflux eofjipk4209/27/2025 09/27/20253839Guayrxpjhtntqa00/29/202510/29/5126Ondfgwcnsxuckh42/29/202510/29/2025 Abnormal tmkkxvtzg19rthritis of back Atherosclerosis of abdominal aorta Overview (03/06/2025): added per 02/11/2025 query response. Back painMI 26.0-26.9,adultOverweight (BMI 25.0-29.9)ronchiectasis Overview (03/06/2025): noted in 12/05/2024 Pulmonology Consult Note page 1. added per OP [facility]I policy. Centrilobular fefnicnjz21 Overview (03/06/2025): noted in 12/05/2024 Pulmonology Consult Note page 1. added per OP CDI policy. Eazwakbmeddu60oughramps of lower rwfioygzl59DizzinessHeartburn03/06/2025 03/06/2025History of small bowel bwznhlqdusc36 Overview (03/06/2025): added per 02/11/2025 query response. Hospital discharge follow-upPeripheral vascular gqslumhpiztbl97HyponatremiaLong term current use of inhaled yppfulb03 Overview (03/06/2025): noted in 12/05/2024 Pulmonology Consult Note page 1. added per OP [facility]I policy. Malnutrition ([facility])MigraineOveractive qmmryzu48Peripheral circulatory disorder due to type 2 diabetes wpdhfuyu30 Overview (03/06/2025): linked DM with PVD per OP CDI policy. Piriformis syndrome of left sidePitting edema03/06/2025 03/06/2025SBO (small bowel obstruction)Seasonal allergies Shoulder pain, rightUTI symptoms Weaknesseast jimcyptgs05/08/2025 03/06/2025History of docodbh54Personal history of nicotine gtmlpokfxx39Stress incontinence (female) (male)06/22/2024 09/26/2025Long term (current) use of antithrombotics/rfgpbzjtujxho91/25/2024 09/26/2025Other mcfp (current) drug ntlrowe02Nausea Other specified disorders of bone density and structure, multiple sitesGastro-esophageal reflux disease without icjakwdddgv26Hyperlipidemia, giugfntckgb62 Interstitial pulmonary disease, bxlkbrkgopd63Nonexudative age- related macular degeneration, bilateral, early dry stage Essential (primary) jmwihooboipj31Major depressive disorder, recurrent, in full clxbfhorb31Unspecified intestinal obstruction, unspecified as to partial versus complete sighrednnqo12/18/2024 09/26/2025Type 2 diabetes mellitus with other specified kcawncjahkmb68/18/2024 09/26/20251596Cxlozyw93Former rstkjn06GERD (gastroesophageal reflux disease)HLD (hyperlipidemia) Interstitial lung wmkydpl61Long term current use of Overview (03/06/2025): Current Medication List includes Lantus and Humalog. added per OP CDI policy. care home current use of systemic jobiyapg00Multiple falls Nonexudative age-related macular rajfezcrctdy20/05/2024 03/06/2025 Overview (03/06/2025): noted in 05/03/2023 Diabetic Eye Exam page 3. added per OP CDI policy. Recurrent major depression in full Overview (03/06/2025): added per 09/28/2023 query response. SAH (subarachnoid hemorrhage)SDH (subdural hematoma) /06/2025Type 2 diabetes uistledm43 Overview (03/06/2025): linked DM with HLD per OP CDI policy. Encounters DateTypeDepartmentCare LtglHqyxhqahrbe09/30/2025 3:15 PM EDTOffice Visit [facility] [address] [place] [address] Evita Fitzgerald DO Chronic cough (Primary Dx); ILD (interstitial lung disease) (HCC)09/27/2025amboo flowsheet [facility] [address] [place] [address] Evita Fitzgerald DO 09/27/20257577Pkznam42/06/2025Refill [facility] [address] [place] [address] Duc Joshi MD Type 2 diabetes mellitus with hyperglycemia (HCC)08/07/2025 11:10 AM EDTOffice Visit [facility] [address] [place] [address] Duc Joshi MD Type 2 diabetes mellitus with hyperglycemia, with long-term current use of insulin (HCC) (Primary Dx); Insulin long-term use (HCC); Encounter for dietary consultation; Vitamin D deficiency; Hyperlipemia, mixed ; Rszkhryrajbn77/09/2025amboo flowsheet [facility] [place] [facility] [address] [place] [address] Duc Joshi MD 07/19/2025 1:45 PM EDTOffice Visit [facility] [address] [place] [address] Evita Fitzgerald, DO Chronic cough07/19/2025amboo flowsheet [facility] [address] [place] [address] Evita Fitzgerald, DO 07/19/2025Travelfrom Last 3 Months Immunizations ImmunizationAdministration DatesNext DueInfluenza Whole10/07/2005Influenza, High Dose Seasonal, Preservative Free08/25/2024Influenza, High-dose Seasonal, Quadrivalent, Preservative Free09/06/2022,09/20/2021Influenza, Seasonal, Quadrivalent, Njnnvwdapu49/21/2023Influenza, Xipvpqngkfi40/27/2024Influenza, live, pmysnerdss43/23/2019Pneumococcal Conjugate PCV 1313Pneumococcal Conjugate PCV 3Pneumococcal Polysaccharide AEHS758912/07/2004RSV, Rqvshpwxwun19/20/2023RSV, recombinant, protein subunit RSVpreF, adjuvant reconstitu, 120mcg/0.5mL, PF (Arexvy)11/17/2023Zoster, Eomftltcbii55/07/2025, 08/26/2019 Family History Medical HistoryRelationNameCommentsCancerFatherDiabetesFatherCancerMother DiabetesMotherRelationNameStatusCommentsFatherDeceasedMotherDeceased Social History Tobacco UseTypesPacks/DayYears UsedDateSmoking Tobacco: FormerCigarettes Smokeless Tobacco: Never Tobacco Cessation:Counseling Given: Not Answered Alcohol UseStandard Drinks/WeekCommentsNot Currently0 (1 standard drink = 0.6 oz pure alcohol)AUDIT-CAnswerDate RecordedQ1: How often do you have a drink containing alcohol?Never03/16/2024Q2: How many drinks containing alcohol do you have on a typical day when you are drinking?Patient does not drink03/16/2024Q3: How often do you have six or more drinks on one occasion?Never03/16/2024 CommentsUnknownSex and Gender InformationValueDate RecordedSex Assigned at Not on fileLegal BirJzkjsv00/15/2023 6:37 PM EDTGender IdentityNot on fileSexual OrientationNot on file Last Filed Vital Signs Vital SignReadingTime TakenCommentsBlood Qqmvaqfr738/4096709/27/2025 3:14 PM EDT Oquid820909/27/2025 3:14 PM EDTTemperature--Respiratory Ezqw7976 11:12 AM EDTOxygen Osvescaqqc56%09/27/2025 3:14 PM EDTInhaled Oxygen Concentration-- Ejvfbk52.7 kg (147 lb)09/27/2025 3:14 PM LHAVesthm994.4 cm (5')09/27/2025 3:14 PM EDTBody Mass Index28.7109/27/2025 3:14 PM EDT Plan of Treatment DateTypeDepartmentCare Team (Latest Contact Info)Pnsccnlimze21/13/2026 11:10 AM ESTOffice Visit [facility] [address] [place] [address] Duc Joshi MD [address] [place] [address] 01/03/2026 3:00 PM ESTOffice Visit [facility] [address] [place] [phone] Evita Fitzgerald DO [address] [place] [address] 03/19/2026 11:40 AM EDTOffice Visit [facility] [address] SIME[address] Oscar [address] [address] Bethany Wells, VERSE WRITER [address] [place] [address] Health MaintenanceDue DateLast DoneCommentsCOVID-19 Vaccine ( season) 51, 08/31/2024, 10/01/2021, Additional history exists Pneumococcal Vaccine: 65+ IngepMzpelyipw86/06/2023, 11/03/2023, 10/07/2005 Influenza ApvqrmfGnzqscoaf62/16/2025, 08/25/2024, 08/25/2024, Additional history exists Procedures Procedure NamePriorityDate/TimeAssociated DiagnosisCommentsPOCT GLYCOSYLATED HEMOGLOBIN (HGB A1C)Esffdjk7008/07/2025 11:16 AM EDT Type 2 diabetes mellitus with hyperglycemia, with long-term current use of insulin (HCC) POCT XGXPGIHFijakyc07/09/2025 11:16 AM EDT Type 2 diabetes mellitus with hyperglycemia, with long-term current use of insulin (HCC) RENAL FUNCTION WIFEGFmphwhi34/25/2025 9:02 AM EDT Type 2 diabetes mellitus with hyperglycemia, with long-term current use of insulin (HCC) LIPID MQGUMSkmermz60/25/2025 9:02 AM EDT Type 2 diabetes mellitus with hyperglycemia, with long-term current use of insulin ([facility]) MICROALBUMIN / CREATININE URINE MAXMZDueytgf12/25/2025 9:02 AM EDT Type 2 diabetes mellitus with hyperglycemia, with long-term current use of insulin (HCC) VITAMIN D 25 HYDROXY HCHVCOcmvtgp55/25/2025 9:02 AM EDT Type 2 diabetes mellitus with hyperglycemia, with long-term current use of insulin (HCC) C-IGQRJDKDbbroks65/25/2025 9:02 AM EDT Type 2 diabetes mellitus with hyperglycemia, with long-term current use of insulin (HCC) from Last 3 Months Results * POCT glycosylated hemoglobin (Hb A1C) docked device (08/07/2025 11:16 AM EDT) ComponentValueRef RangeTest MethodAnalysis TimePerformed AtPathologist SignatureHemoglobin A1C8.1Specimen (Source)Anatomical Location / Laterality Collection Method / VolumeCollection TimeReceived TimeBloodVenous blood specimen / Nhemwvw6808/07/2025 11:16 AM EDT Narrative Authorizing ProviderResult TypeResult StatusIntermountain Medical Centeroscar Madelyn MDPOINT OF CARE TEST ENTER/EDIT ORDERABLESFinal Result * POCT glucose manually resulted (08/07/2025 11:16 AM EDT)ComponentValueRef RangeTest MethodAnalysis TimePerformed AtPathologist SignatureGlucose Blood, ILG671fa/dLSpecimen (Source)Anatomical Location / LateralityCollection Method / VolumeCollection TimeReceived TimeBloodCapillary blood specimen / Unknown 08/07/2025 11:16 AM EDT Narrative Authorizing ProviderResult TypeResult StatusAhcharleen Joshi MDPOINT OF CARE TEST ENTER/EDIT ORDERABLESFinal Result * Microalbumin / creatinine urine ratio (07/23/2025 9:02 AM EDT)ComponentValue Ref RangeTest MethodAnalysis TimePerformed AtPathologist SignatureCreat Ur66.9 Not Estab. mg/dLLABCORPAlbumin Ur14.6Not Estab. ug/mLLABCORPAlb/Creat Ratio Tajeg424 - 29 mg/g creatLABCORPComment: ? Normal: ?0 - ??29 ? Moderately increased: 30 - 300 Severely increased: >300 Specimen (Source)Anatomical Location / LateralityCollection Method / Volume Collection TimeReceived TimeUrineUrine specimen obtained by clean catch procedure / Xrsnmiw7207/23/2025 9:02 AM EDT07/23/2025 Narrative [facility] - 07/24/2025 12:35 PM EDT Performed at: [address] [place] ??[id number] Roaster Operator: Tommie Chamberlain PhD, Phone: ??[phone] Authorizing ProviderResult TypeResult StatusDuc CARVAJAL URINE ORDERABLESFinal ResultPerforming OrganizationAddressCity/State/[facility] CodePhone Number [facility] * (ABNORMAL) Vitamin D 25 hydroxy Total (07/23/2025 9:02 AM EDT)ComponentValue Ref RangeTest MethodAnalysis TimePerformed AtPathologist SignatureVitamin D, 25-Xizubjy646.0(H)30.0 - 100.0 ng/mLLABCORPComment: Vitamin D deficiency has been defined by the [place] of Medicine and an Endocrine Society practice guideline as a level of serum 25-OH vitamin D less than 20 ng/mL (1,2). The Endocrine Society went on to further define vitamin D insufficiency as a level between 21 and 29 ng/mL (2). 1. IOM ([place] of [employer]). 2010. Dietary reference ?? intakes for calcium and D. [place]: The ?? National AcademBioAtla, LLC Press. 2. Tejas MF, Roney [place], Adolfo OBRIEN, et al. ?? Evaluation, treatment, and prevention of vitamin D ?? deficiency: an Endocrine Society clinical practice ?? guideline. JCEM. 2011 May; 96(7):1911-30. Specimen (Source)Anatomical Location / LateralityCollection Method / Volume Collection TimeReceived TimeBloodVenous blood specimen / Iyfttam7307/23/2025 9:02 AM EDT07/23/2025 Narrative [facility] - 07/24/2025 12:35 PM EDT Performed at: 02 - [facility] [address] ??[id number] Roaster Operator: Tommie Chamberlain PhD, Phone: ??[phone] Authorizing ProviderResult TypeResult StatusDuc CARVAJAL BLOOD ORDERABLESFinal ResultPerforming OrganizationAddressCity/[facility] CodePhone Number [facility] * (ABNORMAL) C-peptide (07/23/2025 9:02 AM EDT)ComponentValueRef RangeTest MethodAnalysis TimePerformed AtPathologist SignatureC-PEPTIDE, SERUM1.0(L)1.1 - 4.4 ng/mLLABCORPComment:C-Peptide reference interval is for fasting patients.Specimen (Source)Anatomical Location / LateralityCollection Method / VolumeCollection TimeReceived TimeBloodVenous blood specimen / Unknown 07/23/2025 9:02 AM EDT07/23/2025 Narrative [facility] - 07/24/2025 12:35 PM EDT Performed at: [address] ??[id number] Roaster Operator: Tommie Chamberlain PhD, Phone: ??[phone] Authorizing ProviderResult TypeResult StatusDuc Joshi MDLAB BLOOD ORDERABLESFinal ResultPerforming OrganizationAddressCity/State/ZIP CodePhone Number [facility] * (ABNORMAL) Renal function panel (07/23/2025 9:02 AM EDT)ComponentValueRef RangeTest MethodAnalysis TimePerformed AtPathologist SklnodpskDepfltn353(H)70 - 99 mg/nDVFIKIDJGPO431 - 27 mg/dLLABCORPCreat0.730.57 - 1.00 mg/dLLABCORPEGFR 81>59 mL/min/1.73LABCORPBUN/Creat Ratio30(H)12 - 30SBKECIJGlgcpp400288 - 144 mmol/LLABCORPPotassium4.03.5 - 5.2 mmol/RZVLXAIYXvaackut4974 - 106 mmol/L LABCORPCarbon Btpxaip3366 - 29 mmol/LLABCORPCalcium9.98.7 - 10.3 mg/dLLABCORP Phosphorus3.63.0 - 4.3 mg/dLLABCORPAlbumin4.23.7 - 4.7 g/dLLABCORPSpecimen (Source)Anatomical Location / LateralityCollection Method / VolumeCollection TimeReceived TimeBloodVenous blood specimen / Eqpyvpn0107/23/2025 9:02 AM EDT 07/23/2025 Narrative [facility] - 07/24/2025 12:35 PM EDT Performed at: - [facility] [address] [facility], [address], [place], [place] ??[id number] Roaster Operator: Dwayne Oquendo MD, Phone: ??[phone] Authorizing ProviderResult TypeResult StatusAhmad Itzel CARVAJAL BLOOD ORDERABLESFinal ResultPerforming OrganizationAddressCity/State/ZIP CodePhone Number [facility] * (ABNORMAL) Lipid panel (07/23/2025 9:02 AM EDT)ComponentValueRef RangeTest MethodAnalysis TimePerformed AtPathologist SignatureCholesterol, Xcvrd830627 - 199 mg/nTEOYGHYWOuuaeaghzgmau3520 - 149 mg/dLLABCORPHDL Xibrhnyyqcm72>39 mg/dL LABCORPVLDL Cholesterol Qar293 - 40 mg/dLLABCORPLDL Chol Calc (NIH)106(H)0 - 99 mg/dLLABCORPSpecimen (Source)Anatomical Location / LateralityCollection Method / VolumeCollection TimeReceived TimeBloodVenous blood specimen / Hmkkume5807/23/2025 9:02 AM EDT07/23/2025 Narrative [facility] - 07/24/2025 12:35 PM EDT Performed at: 02 - [facility] ??[id number] Roaster Operator: Tommie Chamberlain PhD, Phone: ??[phone] Authorizing ProviderResult TypeResult StatusAhmaoscar CARVAJAL BLOOD ORDERABLESFinal ResultPerforming OrganizationAddressCity/State/ZIP CodePhone Number [facility] from Last 3 Months Insurance Care Teams Team MemberRelationshipSpecialtyStart DateEnd Date Ron Miramontes MD [address] [place] [address] PCP - GeneralFamily Medicine02/19/25 Kay Huerta PA [address] [place] [address] Physician AssistantNeurology02/19/25
--- OUTSIDE RECORDS SUMMARY | 2025-10-04 12:37 | XMS_ITS | Encounter Summary ---
Author Organization [facility] Address [address] [place] [address] Care Team Providers Care Olericulturist Name Role Phone Ron Miramontes MD Primary Care Provider [phone] Kay Huerta Unavailable Encounter Details DateTypeDepartmentCare Team (Latest Contact Info)Kwecnojrfed22/30/2025Bamboo flowsheet [facility] [place] [facility] [address] [place] [address] Evita Fitzgerald, DO [address] [place] [address] Social History Tobacco UseTypesPacks/DayYears UsedDateSmoking Tobacco: FormerCigarettes Smokeless Tobacco: NeverAlcohol UseStandard Drinks/WeekCommentsNot Currently0 (1 standard drink = 0.6 oz pure alcohol)AUDIT-CAnswerDate RecordedQ1: How often do you have a drink containing alcohol?Never03/16/2024Q2: How many drinks containing alcohol do you have on a typical day when you are drinking?Patient does not drink03/16/2024Q3: How often do you have six or more drinks on one occasion?Never4CommentsUnknownSex and Gender InformationValue Date RecordedSex Assigned at BirthNot on fileLegal IckFzipdo30/15/2023 6:37 PM EDTGender IdentityNot on fileSexual OrientationNot on filedocumented as of this encounter Plan of Treatment DateTypeDepartmentCare Team (Latest Contact Info)Wnayplwhxzn64/13/2026 11:10 AM ESTOffice Visit [facility] [place] [facility] [address] [place] [address] Duc Joshi MD [address] [place] [address] 01/03/2026 3:00 PM ESTOffice Visit [facility] [place] [facility] [address] [place] [address] Evita Fitzgerald DO [address] [place] [address] 03/19/2026 11:40 AM EDTOffice Visit [facility] [place] [facility] [address] [phone] Bethany Wells, SHAKE LOADER [address] [place] [address] documented as of this encounter Visit Diagnoses Not on filedocumented in this encounter Care Teams Team MemberRelationshipSpecialtyStart DateEnd Date Ron Miramontes MD [address] [place], [place] [phone] PCP - GeneralFamily Medicine02/19/25 Kay Huerta PA [address] [place] [address] Physician AssistantNeurology02/19/25documented as of this encounter
--- OUTSIDE RECORDS SUMMARY | 2025-10-04 12:38 | XMS_ITS | Patient Health Record ---
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 Name Role Phone Audra Amos Primary Care Provider Unavail able Zay Jean-Baptiste Unavailable [phone] Allergies No Known Allergies Results Component Value Reference Range Notes CT Chest High Resolution Reviewed date:11/30/2024 10:59:02 AM Interpretation: Performing Lab: Notes/Report: HEMOGLOBIN Reviewed date:11/30/2024 11:30:20 AM Interpretation: Performing Lab: Notes/Report: [facility] , Hemoglobin 12.8 12.0-16.0 g/dL Performing Lab:see noteML - [facility] LBRT pulmonary function test Reviewed date:11/30/2024 01:26:58 PM Interpretation: Performing Lab: Notes/Report: Source Facility: [place] [address] [place] [address] Respiratory Report Signed Patient: MICHELLE NASH MR#: [id number] : 1940 Acct:[id number] Age/Sex: 84 / F ADM Date: 11/28/24 Loc: CT Attending Dr: Zay Jean-Baptiste D.O. Ordering Physician: Zay Jean-Baptiste D.O. 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 Findings were considered accurate and reproducible, with exception of DLCO which did not meet ATS standards. No bronchodilator was administered due to normal spirometric values. Spirometry: -FEV1/FVC: Normal @ 87% -FEV1: Normal @ 111% -FVC: Normal @ 93% Lung volumes by plethysmography: -RV: Normal @ 101% -TLC: Normal @ 87% Diffusion capacity: -DLCO: Moderate reduction @ 59% when corrected for Hb 12.8g/dL Comparison from 04/07/2023: -FEV1: 102% -T% -DLCO: 60% Impressions: -Normal spirometry and lung volumes. Isolated moderate diffusion impairment. This pattern can be seen in ILD. PFT is essentially unchanged from 04/07/2023. Clinical correlation required. Electronically Signed On 11-30-2024 13:16:02 EST by Zay Jean-Baptiste Dictated By: Zay Jean-Baptiste D.O. 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 Ordering Physician: Zay Jean-Baptiste D.O. Date of Service: 11/28/24 Procedure(s): CT chest high res Accession Number(s): [id number] cc: NATACHA ONEILL [place] [address] Patient Name: MICHELLE NASH MRN: [facility]:[id number] date: 1940 Sex: F Assigned Patient Location: CT Current Patient Location: Accession/Order Number: [id number] Exam Date: 11/28/2024 08:50 Report Date: 11/29/2024 04:43 At the request of: ZAY TONIA Procedure: CT chest high res EXAMINATION: CT chest high res HISTORY: Interstitial Pulmonary Disease COMPARISON: CT chest high-resolution 11/23/2023 TECHNIQUE: Axial images were obtained at 10 mm intervals during inspiration and expiration in the supine and prone positions. No IV contrast given. Dose reduction techniques were achieved by using automated exposure control and/or adjustment of mA and/or kV according to patient size and/or use of iterative reconstruction technique. FINDINGS: LUNGS: Prominent chronic interstitial changes, bronchiectasis, and peripheral scarring. Mild emphysematous changes. No appreciable masses. PLEURA: Stable scattered areas of pleural thickening/scarring. No pleural effusion. ERIKA: No mass or adenopathy. MEDIASTINUM: No mass or adenopathy. HEART: Cardiomegaly. No pericardial effusion. Coronary arteries: Moderate AORTA: No aneurysm.. CHEST WALL: No mass or axillary adenopathy LIMITED ABDOMEN: No suspicious findings. Limited images of the upper abdomen. OTHER: Negative. CT/CT chest high res IMPRESSION: 1. Grossly stable prominent chronic interstitial changes. Stable bronchiectasis and emphysematous changes. 2. No appreciable acute infiltrates or suspicious nodules. Electronically authenticated by: KWAKU JOHNSON Date: 11/29/2024 04:43 Dictated By: Kwaku Johnson M.D. 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: Reason For Referral No Information Medications Medication SIG (Take, Route, Frequency, Duration) Notes Start Date End Date Status PreserVision AREDS 2 - as directed Orally ActivePropranolol HCl 60 MGOral; Duration: 90 DaysActiveALPRAZolam 0.25 MG1 tablet Orally Twice a dayActiveSymbicort 160-4.5 MCG/ACTas directed Inhalation ActiveAspirin 81 MG1 tablet Orally Once a dayActivetiZANidine HCl 4 MG1 tablet as needed Orally Three times a dayActiveAtorvastatin Calcium 10 MG1 tablet Orally Once a dayActiveVentolin HFA 108 (90 Base) MCG/ACT2 puffs as needed Inhalation every 4 hrsActiveCentrum Adults -as directed OrallyActiveVitamin D3 25 MCG (1000 UT)as directed OrallyActiveIbandronate Sodium 150 MGOral; Duration: 90 DaysActiveFlovent HFA 44 MCG/ACTInhalation; Duration: 30 DaysNot-Taking Jardiance 10 MGOral; Duration: 30 DaysActiveLantus SoloStar 100 UNIT/ML Subcutaneous; Duration: 75 DaysActiveLosartan Potassium 50 MG1 tablet Orally Once a dayActiveOmeprazole 20 MG1 capsule 30 minutes before morning meal Orally Once a dayActive Immunizations Vaccine Route Administration Date Status Comme nts Arexvy Unknown 11/17/2023 Administered Fi.tt Syringe Pre-Filled 30 mcg/0.3 zNRpcgdsw51/03/2024Administered Flu, Fluad (29753) 65 yrs + High Dose Seasonal (4852-6297)Agvwczv0708/25/2024 AdministeredFlu, Fluad (98522) 65 yrs+, single-dose syringe (9416-6278)Unknown 3AdministeredPneumococcal (Prevnar 20)Mdlvjyt79/06/2023Administered SARS-COV-2 (COVID 19) bivalent 30 mcg/0.3 ml fbulDfrzrss81/17/2022Administered ZOSTER (SHINGLES) VACCINE (HZV)Cmmwzbf6508/26/2019Administered Social History Tobacco Use: Social History Observation Description Date Details (start date - stop date) Former Smoker NA - NA Tobacco Control (Standard) Question Answer Notes Tobacco use: Former smoker How long has it been since you last smoked?Greater than 10 yearsAdditional Findings: Tobacco vbk-zgqwKy-zwwmxeocj smoker amount unknown Problems Problem Type SNOMED Code ICD Code Onset Dates Problem Status W/U Status Risk Notes Problem Centrilobular emphysema (90069136) Centri lobular emphysema (J43.2) ActiveconfirmedProblemBronchiolectasis (02877392)Bronchiectasis, uncomplicated (J47.9)ActiveconfirmedProblemParietoalveolar pneumopathy (25098652)Interstitial pulmonary disease, unspecified (J84.9)ActiveconfirmedProblemLong-term current use of inhaled steroid (622837975)retirement (current) use of inhaled steroids (Z79.51)ActiveconfirmedProblemLong-term current use of systemic steroid (596339517956308)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 (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) use of systemic steroids (Z79.52)Active confirmedProblemDiabetes mellitus type 2 (disorder) (61045572)DM2 (diabetes mellitus, type 2) (E11.9)ActiveconfirmedProblemType II diabetes mellitus well controlled (200099395)Diabetes mellitus type 2, controlled (E11.9)Active confirmedProblemEx-tobacco user (finding) (124845828)History of tobacco abuse (Z87.891)ActiveconfirmedProblemGastroesophageal reflux disease (131601933) Gastroesophageal reflux disease (K21.9)ActiveconfirmedProblemPertussis (36866618)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 Vital Signs Heart Rate 60 /min 12/05/2024 Qtlrcifzlyw49.8 degrees Ibbjstvjgd32/07/2025Respiratory Rate18 /min12/05/2024 Frtsmxco40 %12/05/2024lood pressure qwzobgmdm31 mm Hg12/05/20245324Nfyamj42 in 12/05/2024lood pressure ywbbvpru241 mm Hg12/05/20245062Xlxycs106.8 lbs12/05/2024MI 25.93 kg/m212/05/2024 Encounters Encounter Location Date Provider Diagnosis Pulmonary Medicine [place] [address] [place] [address] 10/11/2024 [facility] Pul[facility] Medicine [address] [place] [address]/09[facility] [address] [place] [address] [facility] [address] [place] [address], [facility] J84.9 ; Centrilobular emphysema J43.2 ; Bronchiectasis,uncomplicated J47.9 ; Gastroesophageal reflux disease K21.9 ; 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 (current) use of inhaled carrington roids Z79.51 and History of tobacco abuse Z87.891 Assessments Encounter Date Diagnosis (ICD Code) Assessment Notes Treatment Notes Treatment Clinical Notes Section Notes 12/05/2024 Interstitial pulmonary disease, unspecified (ICD-10 - J84.9) No evidence of progression of underlying ILD/pulmonary fibrosis on repeat HRCT and PFT dated 11/18/2024. Explained to the patient and her that we may never know what caused this. I counseled her that chronic cough is unlikely to ever completely resolve given the extensive damage throughout her lungs from the fibrosis, bronchiectasis, and emphysematous changes. Patient states she seems to have responded well to Symbicort, so I will continue with that. Otherwise, I would continue with symptom control. She can look into several OTC cough medicines, preferablywith dextromethorphan for its antitussive effects. She states she is concerned about the cough syrup is affecting her blood sugar. Generally, a teaspoon every now and then should not be an issue, butif she is that concern, she can look into Diabetic Tussin. Asked the patient what she wanted to do at this point; options included doing nothing, or repeatingtesting. The patient voiced she would feel better if testing were repeated. A 1 year follow-up PFT and HRCT have been ordered for the end of 2024. Patient will follow-up after that, or sooner if needed. 5Centrilobular emphysema (ICD-10 - J43.2) Patient previously was on Flovent and did not seem to have a benefit from it, but use was sporadic and I am unsure if she ever had a adequate trial at the full dose on it. Now, she appears to be on Symbicort and using it on a more regular basis with improvement in her coughing. She is rinsing afteruse; there is no evidence of oral candidiasis. If she is not having any deleterious effects, she can continue with the Symbicort for now. 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 She continues to have a dry cough, which may be more from the pulmonary fibrosis and bronchiectasis. She is not having any excessive secretions, so at this time she does not seem to require a pulmonary toilet. 12/05/2024Gastroesophageal reflux disease (ICD-10 - K21.9) Potential aggravating underlying cause of her cough. 12/05/2024Long term (current) use of inhaled steroids (ICD-10 - Z79.51) Patient was counseled to rinse & gargle with water after inhaled corticosteroid use. 12/05/2024History of tobacco abuse (ICD-10 - Z87.891) This patient does not meet current LDCT criteria (e.g. age, time from cessation, # pack-years). Plan Of Treatment No Information Insurance Providers Payer Name Payer Address Payer Phone Subscriber Number Group Number Insured Name Patient Relationship to Insured Coverage Start Date Coverage End Date [place] [address] [place] [address] [id number] Daniella Nash - patient is the [id number] [address] [address] [place] [id number], [employer] - patient is the insured Medical (General) History Medical History History ICD Code Interstitial pulmonary disease, unspecif ied J84.9 Gastroesophageal reflux disease K21.9 Hyponatremia E87.1 DM2 (diabetes mellitus, type 2) E11.9 Vitamin D deficiency E55.9 Overactive bladder N32.81 Osteopenia M85.80 Anxiety F41.9 History of tobacco abuse Z87.891 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
--- OUTSIDE RECORDS SUMMARY | 2025-10-04 12:44 | XMS_ITS | CCD ---
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 Name Role Phone KITTY JOHNSON Attending Unavailable KITTY JOHNSON Attending Unavailable ALEXKITTY Attending Unavailable BOLLENBACHERBINTA PA-C Attending Nicolette vailable ALEX, KITTY Luke Attending Unavailable BOLLENBACHERBINTA PA-C Attending Nicolette vailable KITTY JOHNSON Attending Unavailable Jackson, Suleman Edward Primary Care Unavailable JACKSON, SULEMAN EDWARD Consulting Unavailable ALEX, KITTY Luke Attending Unavailable Jackson, Suleman Edward Primary Care Unavailable JACKSON, SULEMAN EDWARD Consulting Unavailable KITTY JOHNSON Admitting Unavailable KITTY JOHNSON Attending Unavailable Jackson, Suleman Edward Primary Care Unavailable JACKSON, SULEMAN EDWARD Consulting Unavailable ALEX, KITTY Luke Attending Unavailable Jackson, Suleman Edward Primary Care Unavailable JACKSON, SULEMAN EDWARD Consulting Unavailable ALEX, KITTY Luke Attending Unavailable Jackson, Suleman Edward Primary Care Unavailable JACKSON, SULEMAN EDWARD Consulting Unavailable ALEX, KITTY Luke Attending Unavailable Jackson, Suleman Edward Primary Care Unavailable JACKSON, SULEMAN EDWARD Consulting Unavailable ALEX, KITTY Luke Attending Unavailable Jackson, Suleman Edward Primary Care Unavailable JACKSON, SULEMAN EDWARD Consulting Unavailable BOLLENBACHERBINTA PA-C Attending Nicolette vailable Jackson, Suleman Edward Primary Care Unavailable JACKSON, SULEMAN EDWARD Consulting Unavailable BOLLENBACHERBINTA PA-C Attending Nicolette vailable Jackson, Suleman Edward Primary Care Unavailable JACKSON, SULEMAN EDWARD Consulting Unavailable BOLLENBACHBINTA CERVANTES PA-C Attending Nicolette vailable Jackson, Suleman Edward Primary Care Unavailable JACKSON, SULEMAN EDWARD Consulting Unavailable BOLLENBACHBINTA CERVANTES PA-C Attending Nicolette vailable Jackson, Suleman Edward Primary Care Unavailable JACKSON, SULEMAN EDWARD Consulting Unavailable BOLLENBACHBINTA CERVANTES PA-C Attending Nicolette vailable Jackson, Suleman Edward Primary Care Unavailable JACKSON, SULEMAN BRAN Consulting Unavailable BINTA MACK PA-C Attending Nicolette vailable Renetta, Suleman Bran Primary Care Unavailable JACKSON, SULEMAN BRAN Consulting Unavailable SULEMAN JACKSON Primary Care Physician Natacha Oneill Primary Care Physician NEO, DR SHERMAN Attending Unavailable NEO, DR SHERMAN Admitting Unavailable JACKSON ., DR SULEMAN Doe Primary Care Unavailable MISRyann, DR SHERMAN Consulting Unavailable MAI, NATACHA MIRNA Primary Care Unavailable KATHERINE ., MONTRELL Attending Unavailable KATHERINE ., MONTRELL Admitting Unavailable ZIEBER, DR YUKI Jones Consulting Unavailable KATHERINE ., MONTRELL Consulting Unavailable JACKSON ., DR SULEMAN Doe Primary Care Unavailable ZIEBER, DR YUKI Jones Consulting Unavailable BETHANY ABDUL Attending Unavailable BETHANY ABDUL Admitting Unavailable BETHANY ABDUL Consulting Unavailable JACKSON ., DR SULEMAN Doe Primary Care Unavailable JACKSON ., DR SULEMAN Doe Attending Unavailable JACKSON ., DR SULEMAN Doe Admitting Unavailable JACKSON ., DR SULEMAN Doe Consulting Unavailable JACKSON ., DR SULEMAN Doe Consulting Unavailable JACKSON ., DR SULEMAN Doe Primary Care Unavailable JACKSON ., DR SULEMAN Doe Attending Unavailable JACKSON ., DR SULEMAN Doe Admitting Unavailable WEST, DR BEV Mosquera Consulting Unavailable JACKSON ., DR SULEMAN Doe Consulting Unavailable JACKSON ., DR SULEMAN Doe Attending Unavailable JACKSON ., DR SULEMAN Doe Admitting Unavailable JACKSON ., DR SULEMAN Doe Primary Care Unavailable VADIM, RIMA Consulting Unavailable VELVET, DR BEV Mosquera Consulting Unavailable BETHANY ABDUL Attending Unavailable BETHANY ABDUL Admitting Unavailable ROSS, NATACHA MIRNA Primary Care Unavailable LYNSEY ABDUL Consulting Unavailable NEO, DR SHERMAN Attending Unavailable NEO, DR SHERMAN Admitting Unavailable MAI, NATACHA MIRNA Primary Care Unavailable ATUL .BINTA Consulting Unavailable SAMSA ., EDGAR Attending Unavailable SAMSA ., EDGAR Admitting Unavailable SAMSA ., EDGAR Consulting Unavailable ROSS, NATACHA MIRNA Primary Care Unavailable SAMSA ., EDGAR Attending Unavailable SAMSA ., EDGAR Admitting Unavailable ROSS, NATACHA MIRNA Primary Care Unavailable SAMSA ., EDGAR Consulting Unavailable Unavailable Primary Care Provider UnavailMARIANN Teran Referring Unavailable CONSULT, IP SURGERY NEURO Consulting UnaJAMAL Villareal Attending Unavailable LADHA, ASH Admitting Unavailable REQUEST, IP INSPECTOR SCREEN PRINTING SERVICE Consulting Unavaila ble REQUEST, IP PHYSICAL THERAPY SERVICE Consulting Unavailable REQUEST, IP OCCUPATIONAL THERAPY SERVICE Consult ing Unavailable CONSULT, IP ENDOCRINOLOGY Consulting Unavai gordon PROVIDER, UNKNOWN Attending Unavailable LADHA, ASH Admitting Unavailable ALEXENSLILLIANA, MARIANN Referring Unavailable Bethany ABDUL Unavailable Natacha Oneill Admitting Unavailable Natacha Oneill Attending Unavailable Natacha Oneill Attending Unavailable Natacha Oneill Attending Unavailable Natacha Oneill Admitting Unavailable Erwin Montez H Attending Unavailable Natacha Oneill Attending Unavailable Mariann Morfin Attending Unavailab le AlexenstineMariann Admitting Unavailab le RobenstineMedardoa CJabari Admitting Unavailab le Jace Linares Attending Unavailable Mariann Morfin Attending Unavailab le Mariann Morfin Attending Unavailab le SebastiantineMariann Admitting Unavailab le Mariann Morfin Attending Unavailab le AlexensMedardo almaraza CJabari Admitting Unavailab Jerrell Vale Attending Unavailable MD Natacha Oneill Attending Unavailable MD Natacha Oneill Admitting Unavailable MD Natacha Oneill Admitting Unavailable MD Natacha Oneill Attending Unavailable Natacha Oneill MD Primary Care Provider [phone] Praneeth Perry Attending Unavail able Praneeth Perry Admitting Unavail able SULEMAN JACKSON Primary Care Unavailable Antonio Jefferson Consulting Unavailable Edu Lennon Consulting Unavailable Natacha Oneill MD Primary Care Provider [phone] Kay Patricio Unavailable Natacha Oneill Attending Unavailable Natacha Oneill Attending Unavailable Kay Patricio Unavailable Elijah Adan Attending Unavailable MAYRA LARSON Attending Unavailable MAYRA LARSON Attending Unavailable Elijah Adan Attending Unavailable Natacha Oneill Attending Unavailable Natacha Oneill Attending Unavailable Natacha Oneill Attending Unavailable Natacha Oneill Attending Unavailable MAYRA LARSON Attending Unavailable Natacha Oneill Attending Unavailable Natacha Oneill Attending Unavailable Binta Loyola Attending Unavailable Natacha Oneill Attending Unavailable Binta Loyola Attending Unavailable Natacha Oneill Attending Unavailable Natacha Oneill Attending Unavailable MAYRA LARSON Attending Unavailable MAYRA LARSON A Attending Unavailable MAYRA LARSON A Attending Unavailable KAY HUERTA Attending Unavailable EVITA FITZGERALD Attending Unavailable AMARI, AHMAD F Attending Unavailable EVITA FITZGERALD Attending Unavailable EVITA FITZGERALD Attending Unavailable AMARI, AHMAD F Attending Unavailable AMARI, AHMAD F Attending Unavailable AMARI, AHMAD F Referring Unavailable EVITA FITZGERALD Attending Unavailable Lauren Amador Attending Provider NON STAFF Primary Care Provider Unavailmoriah e Allergies Allergy ClassificationReported Allergen(s)Allergy TypeDate of OnsetReaction(s) FacilityUnclassified (16 sources)No Known Medication Allergies; Translations: [No Known Medication Allergies]Propensity to adverse reactions (disorder)[facility] Repository (20 sources)Aminolevulinic Acid; Translations: [nitroglycerin]Drug Allergy 35-87-2865HhtfpDwxW[facility] (19 sources)NitroglycerinAllergy to pbuanechh09-61-1379TtgkcvrF[facility] (2 sources)Aminolevulinic Acid; Translations: [aminolevulinic acid]Drug Allergy 18-32-8094IwxuckC[facility] Medications Current Medications MedicationDrug Class(es)DatesSig (Normalized)Sig (Original)acetaminophen 325 mg oral tablet (2 sources)Start: 01-03-2024 End: 54-79-1878eftidiiifuwbe (TYLENOL) [id number] 200 actuat albuterol 0.09 mg/actuat metered dose inhaler (20 sources)beta2-Adrenergic AgonistStart: 21-05-4720xpmqfedng (PROVENTIL HFA) 108 (90 Base) MCG/ACT HFA inhalerStart: 09-42-3489ayxp 2 puff(s) by mouth every four hours as needed for coughalbuterol (PROVENTIL HFA) INHALATION HFA inhaler (VENTOLIN,PROAIR,PROVENTIL) 90mcg Inhale 2 Puffs by mouth every 4 hours as needed for Other (cough). 0 02/08/2023 Activealbuterol HFA 90 mcg/act inhaler Activetake 2 puff(s) by mouth every six hoursalbuterol HFA 90 mcg/act inhaler INHALE 2 PUFFS BY MOUTH EVERY 6 HOURS ActiveAlbuterol (Eqv-ProAir HFA) 90 mcg/inh inhalation aerosol (15 sources)Start: 99-18-4194Tyrafzoee (Eqv-ProAir HFA) 90 mcg/inh inhalation aerosol See Instructions, 8.5 EA, Refill(s) 0, INHALE 2 PUFFS BY MOUTH EVERY 6 HOURS, [id number], 152, cm, 10/06/23 16:04:00 EST, Height/Length Dosing, 50.2, kg, 10/06/23 16:04:00 EST, Weight Dosing Start Date: 10/15/23 Status: OrderedStart: 53-79-5876Ilsihviub (Eqv-ProAir HFA) 90 mcg/inh inhalation aerosol See Instructions, 8.5 EA, Refill(s) 0, INHALE 2 PUFFS BY MOUTH EVERY 6 HOURS, [facility], 152, cm, 09/15/23 19:17:00 EDT, Height/Length Dosing, 44.9, kg, 09/15/23 19:17:00 EDT, Weight Dosing Start Date: 09/23/23 Status: OrderedStart: 32-03-2946Ucwrtovzr (Eqv-ProAir HFA) 90 mcg/inh inhalation aerosol See Instructions, 8.5 EA, Refill(s) 0, INHALE 2 PUFFS BY MOUTH EVERY 6 HOURS, [id number], 152.4, cm, 05/18/23 15:32:00 EDT, Height/LengthDosing, 52.4, kg, 05/18/23 15:32:00 EDT, Weight Dosing Start Date: 06/10/23 Status: OrderedStart: 23-32-7019uwih 2 puff(s) by inhalation every six hoursAlbuterol (Eqv-ProAir HFA) 90 mcg/inh inhalation aerosol 2 puff(s), Inhalation, q6hr, 18 gm, Refill(s) 0, [facility]/pharmacy #[id number], 152.4, cm, 05/18/23 15:32:00 EDT, Height/Length Dosing, 52.4, kg, 05/18/23 15:32:00 EDT, Weight Dosing Start Date: 05/18/23 Status: OrderedAlbuterol (Eqv-Proventil HFA) 90 mcg/inh inhalation aerosol (5 sources)Start: 77-65-2401rbri 2 puff(s) by inhalation every six hours as needed for coughAlbuterol (Eqv-Proventil HFA) 90 mcg/inh inhalation aerosol = 2 puff(s), Inhalation, q6hr, PRN Cough, # 18 gm, Refills(s) 0, [id number] 152.4, cm, 02/08/23 17:28:00 EDT, Height/Length Dosing, 58.2, kg, 02/08/23 17:28:00 EDT, Weight Dosing Start Date: 02/08/23 Status: OrderedALPRAZolam 0.25 mg oral tablet (11 sources)BenzodiazepineStart: 30-17-9748tbyt 1 tablet by mouth three times daily as needed for anxietyalprazolam 0.25 mg Tab See Instructions, PRN for anxiety, 1 tab(s) Oral TID, # 90 tab(s), Refills(s) 0, Pharmacy: [facility]/pharmacy #[id number], 152.4, cm, 05/18/23 15:32:00 EDT, Height/Length Dosing, 52.4, kg,05/18/23 15:32:00 EDT, Weight Dosing Start Date: 06/21/23 Status: OrderedStart: 06-21-2023 take 1 tablet by mouth twice dailyALPRAZolam (XANAX) 0.25 MG tablet Take 0.25 mg by mouth 2 times daily. 0 06/21/2023 ActiveStart: 10-69-0121jzsm 1 tablet by mouth three times daily as needed for anxietyalprazolam 0.25 mg Tab See Instructions, PRN for anxiety, 1 tab(s) Oral TID, # 90 tab(s), Refills(s) 0, Pharmacy: [facility]/pharmacy #[id number], 152.4, cm, 03/01/23 11:46:00 EDT, Height/Length Dosing, 56.3, kg,03/01/23 11:46:00 EDT, Weight Dosing Start Date: 03/11/23 Status: OrderedStart: 21-35-2661uryr 1 tablet by mouth three times daily as needed for anxietyalprazolam 0.25 mg Tab See Instructions, PRN for anxiety, 1 tab(s) Oral TID, Refills(s) 0 Start Date: 07/12/19 Status: Orderedamitriptyline hydrochloride 10 mg oral tablet (12 sources)Tricyclic AntidepressantStart: 29-28-3441oyprehpxfisgx (Elavil) 10 MG tablet Indications: Chronic cough Take 1 tablet (10 mg) by mouth as needed at bedtime (cough) Do not start before October 03, 2025. 30 tablet 2 10/03/2025 ActiveStart: 74-78-4266yferbsjvdbkdp (Elavil) 10 MG tablet Indications: Chronic cough Take 1 tablet (10 mg) by mouth as needed at bedtime (cough) Do not start before October 03, 2025. 30 tablet 2 10/03/2025 ActiveStart: 01-04-2024 amitriptyline (ELAVIL) tabletStart: 86-43-1036uslp 2 tablets by mouth at bedtime amitriptyline 10 mg Tab 20 mg = 2 tab(s), Oral, Bedtime, Refills(s) 0 Start Date: 04/08/22 Status: OrderedStart: 15-87-9428fkdo 1 tablet by mouth at bedtime amitriptyline (ELAVIL) 10 MG tablet Take 10 mg by mouth at bedtime. 0 04/08/2022 Activeamoxicillin 875 mg / clavulanate 125 mg oral tablet (1 source)Penicillin-class AntibacterialStart: 05-02-2024 End: 10-12-9539twax 1 tablet by mouth every twelve hoursAugmentin 875 mg oral tablet = 1 tab(s), Oral, q12hr, X 7 day(s), # 14 tab(s), Refills(s) 0, Pharmacy: [facility]/pharmacy #[id number], 152, cm, 05/02/24 13:40:00 EDT, Height/Length Dosing, 56.4, kg, 05/02/24 13:40:00 EDT, Weight Dosing Start Date: 05/02/24 Stop Date: 05/09/24 Status: Orderedascorbic acid 226 mg / beta carotene 74695 unt / cuprous oxide 0.8 mg / dl-alpha tocopheryl lfoyhpj430 unt / zinc oxide 34.8 mg oral capsule (1 source)Vitamin CStart: 05-77-9651jynl 1 capsule by mouth twice dailyVitamins A,C,V-Oztf-Iwedea (Preservision Areds) 4,296 mcg-226 mg-90 mg capsule Active 1 CAP PO Twice daily October 03, 2025 12:00am Complies with drug therapyaspirin 81 mg delayed release oral tablet (5 sources)Platelet Aggregation Inhibitor, Nonsteroidal Anti-inflammatory Drug Start: 10-49-8869yfga 1 tablet by mouth once dailyAspirin 81 mg tablet,delayed release (DR/EC) Active 81 MG PO Daily October 03, 2025 12:00am Complies with drug therapyStart: 14-99-8696cqbj 1 tablet by mouth once dailyaspirin 81 mg Chew Tab 81 mg = 1 tab(s), Oral, Daily, # 30 tab(s), Refills(s) 0 Start Date: 06/15/24 Status: Orderedatorvastatin 10 mg oral tablet (20 sources)HMG-CoA Reductase InhibitorStart: 11-10-6817cdqq 1 tablet by mouth once dailyAtorvastatin 10 mg tablet Active 10 MG PO Daily October 03, 2025 12:00am Complies with drug therapyStart: 37-01-0701wzcedamlkccw (Lipitor) 10 MG tablet Take 10 mg by mouth 09/09/2023 Activeazithromycin 250 mg oral tablet (1 source)Macrolide AntimicrobialStart: 03-18-2023 End: 60-09-6707bkoyyrqpmjhd 250 mg Tab = 1 packet(s), Oral, As Directed, as directed on package labeling, X 5 day(s), # 6 tab(s), Refills(s) 0, Pharmacy: [facility]/pharmacy #[id number], 152.4, cm, 03/18/23 11:16:00 EDT, Height/Length Dosing, 52.7, kg, 03/18/23 11:16:00 EDT, Weight Dosing Start Date: 03/18/23 Stop Date: 03/23/23 Status: OrderedAzithromycin 3 Day Dose Pack 500 mg oral tablet (3 sources)Start: 36-05-9248Heamyrdxxztw 3 Day Dose Pack 500 mg oral tablet 500 mg = 1 tab(s), Oral, Daily, # 3 tab(s), Refills(s) 0, [id number] 152.4, cm, 05/18/23 15:32:00 EDT, Height/Length Dosing, 52.4, kg, 05/18/23 15:32:00 EDT, Weight Dosing Start Date: 05/18/23 Status: Ordered benzonatate 100 mg oral capsule (3 sources)Non-narcotic AntitussiveStart: 09-21-2023 End: 77-68-2570ekjq 1 capsule by mouth three times daily as needed for cough Tessalon 100 mg Cap 100 mg = 1 cap(s), Oral, TID, PRN Cough, X 7 day(s), # 20 cap(s), Refills(s) 0,[id number] 152, cm, 09/15/23 19:17:00 EDT, Height/Length Dosing, 44.9, kg, 09/15/23 19:17:00 EDT, Weight Dosing Start Date: 09/21/23 Stop Date: 09/28/23 Status: OrderedStart: 05-18-2023 End: 64-51-7996lpab 1 capsule by mouth three times dailybenzonatate 200 mg oral capsule 200 mg = 1 cap(s), Oral, TID, X 7 day(s), # 21 cap(s), Refills(s) 0, [id number], 152.4, cm, 05/18/23 15:32:00 EDT, Height/Length Dosing, 52.4, kg, 05/18/23 15:32:00 EDT, Weight Dosing Start Date: 05/18/23 Stop Date: 05/25/23 Status: OrderedBiotin (3 sources)Start: 19-77-0095dljj 1 tablet by mouth once dailybiotin 1 tablet, Oral, Daily, Refills(s) 0 Start Date: 06/28/24 Status: OrderedBlood Glucose Monitoring Suppl (OneTouch Verio Flex System) w/Device kit (20 sources)Start: 32-39-5872Ednlt Glucose Monitoring Suppl (Apax SolutionsTouch Verio Flex System) w/Device kit 07/14/2023 ActiveStart: 44-13-2268Dunnt Glucose Monitoring Suppl (Apax SolutionsTouch Verio Flex System) w/Device kit USE DIRECTED 07/14/2023ctive 60 actuat budesonide 0.16 mg/actuat / formoterol fumarate 0.0045 mg/actuat metered dose inhaler (20 sources)Corticosteroid, beta2-Adrenergic AgonistStart: 81-39-4224bqqp 2 puff(s) by mouth twice dailybudesonide-formoterol (Symbicort) 160-4.5 MCG/ACT inhaler Inhale 2 Puffs by mouth 2 times daily. 0 02/08/2023 Activebudesonide- formoterol (Symbicort) 160-4.5 MCG/ACT inhaler every 12 (twelve) hours Active cephalexin 500 mg oral capsule (1 source)Cephalosporin AntibacterialStart: 12-14-2023 End: 47-65-8133ljwx 1 capsule by mouth every twelve hoursKeflex 500 mg Cap 500 mg = 1 cap(s), Oral, q12hr, X 7 day(s), # 14 cap(s), Refills(s) 0, Pharmacy: [id number], 152, cm, 12/14/23 9:14:00 EST, Height/Length Dosing, 52, kg, 12/14/23 9:14:00 EST, Weight Dosing Start Date: 12/14/23 Stop Date: 12/21/23 Status: Orderedcetirizine hydrochloride 10 mg oral capsule (1 source)Histamine-1 Receptor AntagonistStart: 51-99-0889kzsv 1 capsule by mouth once daily as neededCetirizine (Zyrtec) 10 mg capsule Active 10 MG PO Daily as needed October 03, 2025 12:00am Complies with drug ybwqvsn00 hr cetirizine hydrochloride 5 mg / pseudoephedrine hydrochloride 120 mg extended release oral tablet (8 sources)alpha-Adrenergic Agonist, Histamine-1 Receptor Antagonisttake 1 tablet by mouth once in the morning, then take 1 tablet by mouth every twelve hours at bedtimecetirizine-pseudoephedrine (ZyrTEC-D) 5-120 MG 12 hr tablet Take 1 tablet by mouth in the morning and 1 tablet before bedtime. Active cholecalciferol 0.025 mg oral tablet (20 sources)Vitamin Dcholecalciferol (Vitamin D3) 25 MCG (1000 UT) tablet 1 (one) time each day at the same time Activecodeine phosphate 2 mg/ml / guaiFENesin 20 mg/ml oral solution (20 sources)Opioid AgonistStart: 07-19-2025 End: 76-24-3717bqyr 5 mL by mouth four times daily as needed for cough guaiFENesin-codeine (Robitussin-AC) 100-10 MG/5ML syrup Indications: Chronic cough Take 5 mL by mouth 4 (four) times a day as needed for cough for up to 5 days 300 mL 07/19/2025 07/24/2025 ActiveStart: 17-31-9131bqovRFXulmn-codeine (Robitussin-AC) 100-10 MG/5ML syrup 03/18/2023 ActiveStart: 99-34-9365kjbz 5 mL by mouth every six hours as needed for coughguaiFENesin-codeine (Robitussin-AC) 100-10 MG/5ML syrup TAKE 5ML BY MOUTH EVERY 6 HOURS NEEDED FOR COUGH 03/18/2023 ActiveStart: 99-81-1115bwlg 5 mL by mouth every six hours before mealtime for coughCheratussin AC oral syrup 5 mL, Oral, q6hr for cough, 120 mL, Refill(s) 0, [facility]/pharmacy #[id number], 152.4, cm, 03/18/23 11:16:00 EDT, Height/Length Dosing, 52.7, kg, 03/18/23 11:16:00 EDT, Weight Dosing Start Date: 03/18/23 Status: OrderedContinuous Glucose Pump Room Operator (FreeStyle Eduar 2 [place]) device (20 sources)Start: 09-57-8235Yjhrphzbyc Glucose Pump Room Operator (FreeStyle Eduar 2 [place]) device 12/28/2023 ActiveStart: 26-99-8495Arpdmszkyp Glucose Pump Room Operator (FreeStyle Eduar 2 [place]) device USE WITH FREESTYLE SENSORS DIRECTED 12/28/2023 ActiveContinuous Glucose Sensor (FreeStyle Eduar 2 Sensor) misc (20 sources)Start: 06-42-2604Zcqousdytd Glucose Sensor (FreeStyle Eduar 2 Sensor) misc 02/23/2024 ActiveStart: 79-64-5099Acclbdwcel Glucose Sensor (FreeStyle Eduar 2 Sensor) misc CHANGE EVERY 14 DAYS DIRECTED 02/23/2024 Activedextrose 10 % iv infusion (1 source)Start: 56-98-7364bgayihet 10 % iv infusiondocusate sodium 100 mg oral capsule (1 source)Start: 02-51-8842qzebtmaq sodium (COLACE) capsulefamotidine 20 mg oral tablet (8 sources)Histamine-2 Receptor AntagonistStart: 24-97-2055xylnhhaosr 20 mg Tab 20 mg = 1 tab(s), Oral, Refills(s) 0 Start Date: 01/03/24 Status: OrderedStart: 95-92-2353hxyu 1 tablet by mouth at bedtimefamotidine 20 mg Tab 20 mg = 1 tab(s), Oral, Bedtime, # 30 tab(s), Refills(s) 0 Start Date: 02/08/23Status: Orderedfluconazole 150 mg oral tablet (20 sources)Azole AntifungalStart: 60-13-0019gvuu 1 tablet by mouth once fluconazole (Diflucan) 150 MG tablet Take 150 mg by mouth 1 (one) time 05/02/2024 ActiveStart: 36-62-5018hfjrbfsicuy 150 mg Tab 150 mg = 1 tab(s), Oral, Once, Take one tablet may repeat dose in 3 days, # 2 tab(s), Refills(s) 0, Pharmacy: [facility]/pharmacy #[id number], 152, cm, 01/10/24 14:42:00 EST, Height/Length D osing, 53.9, kg, 01/10/24 14:42:00 EST, Weight Dosing Start Date: 01/10/24 Status: Vrjkeah171 actuat fluticasone propionate 0.044 mg/actuat metered dose inhaler (11 sources)CorticosteroidStart: 26-60-1510dehy 2 puff(s) by mouth twice daily Flovent HFA 44 Aerosol See Instructions, INHALE 2 PUFFS BY MOUTH TWICE A DAY, # 10.6 EA, Refills(s)0, Pharmacy: [facility] ST[id number], 152, cm, 10/06/23 16:04:00 EST, Height/Length Dosing, 50.2, kg, 10/06/23 16:04:00 EST, Weight Dosing Start Date: 10/24/23 Status: OrderedStart: 28-67-4356btps 2 puff(s) by mouth twice daily Flovent HFA 44 Aerosol See Instructions, INHALE 2 PUFFS BY MOUTH TWICE A DAY, # 10.6 EA, Refills(s)0, [facility]acy: [facility], 152, cm, 09/15/23 19:17:00 EDT, Height/Length Dosing, 44.9, kg, 09/15/23 19:17:00 EDT, Weight Dosing Start Date: 09/23/23 Status: OrderedStart: 09-23-2023 End: 81-63-4364irhr 2 puff(s) by inhalation in the morningFlovent HFA 44 MCG/ACT inhaler Inhale 2 puffs in the morning and 2 puffs before bedtime. 09/23/2023 03/14/2025 DiscontinuedStart: 95-17-8416altw 2 puff(s) by inhalation twice daily Flovent HFA 44 Aerosol = 2 puff(s), Inhalation, BID, # 10.6 gram, Refills(s) 0, [id number] 152.4, cm, 05/18/23 15:32:00 EDT, Height/Length Dosing, 52.4, kg, 05/18/23 15:32:00 EDT, Weight Dosing Start Date: 05/18/23 Status: OrderedFreestyle Eduar 2 Flash Glucose Monitoring 14 Day System ([place]) (14 sources)Start: 64-13-0596Lbrlfzuca Eduar 2 Flash Glucose Monitoring 14 Day System ([place]) Freestyle Eduar 2 Flash Glucose Monitoring 14 Day System ([place]), See Instructions, 1 EA, 0, Freestyle Eduar Flash Glucose Monitoring 14 Day System ([place]), [facility]/pharmacy #[id number], Supply, 152, cm, 12/14/23 9:14:00 EST, Height/Length Dosing, 52, kg, 12/14/23 9:14:00 EST, Weight Dosing Start Date: 12/14/23 Status: OrderedStart: 56-52-0695Eysgkthjr Eduar 2 Flash Glucose Monitoring 14 Day System ([place]) Freestyle Eduar 2 Flash Glucose Monitoring 14 Day System ([place]), See Instructions, 1 EA, 0, Freestyle Eduar Flash Glucose Monitoring 14 Day System ([place]), [id number], Supply, 152, cm, 11/08/23 14:53:00 EST, Height/Length Dosing, 51.2, kg, 11/08/23 14:53:00 EST, Weight Dosing Start Date: 11/08/23 Status: OrderedStart: 25-57-9063Xffhvgcfu Eduar 2 Flash Glucose Monitoring 14 Day System ([place]) Freestyle Eduar 2 Flash Glucose Monitoring 14 Day System ([place]), See Instructions, 1 EA, 0, Freestyle Eduar Flash Glucose Monitoring 14 Day System ([place]), [id number], Supply, 152.4, cm, 09/30/23 13:04:00 EDT, Height/Length Dosing, 47.7, kg, 09/30/23 13:04:00 EDT, Weight Dosing Start Date: 09/30/23 Status: OrderedStart: 07-12-2023 Freestyle Eduar 2 Flash Glucose Monitoring 14 Day System ([place]) Freestyle Eduar 2 Flash Glucose Monitoring 14 Day System ([place]), See Instructions, 1 EA, 0, Freestyle Eduar Flash Glucose Monitoring 14 Day System ([place]), [id number], Supply, 152.4, cm, 07/12/23 11:38:00 EDT, Height/Length Dosing, 51.8, kg, 07/12/23 11:38:00 EDT, Weight Dosing Start Date: 07/12/23 Status: Ordered Freestyle Eduar 2 Flash Glucose Monitoring 14 Day System (Sensor) (14 sources)Start: 42-73-0653Nspmoakir Eduar 2 Flash Glucose Monitoring 14 Day System (Sensor) Freestyle Eduar 2 Flash Glucose Monitoring 14 Day System (Sensor), See Instructions, 2 EA, 0, Freestyle Eduar Flash Glucose Monitoring 14 Day System (Sensor). Replace sensor every 14 days., [id number], Supply, 152, cm, 12/14/23 9:14:00 EST, Height/Length Dosing, 52, kg, 12/14/23 9:14:00 EST, Weight Dosing Start Date: 12/14/23 Status: OrderedStart: 97-64-2776Gzvfafwou Eduar 2 Flash Glucose Monitoring 14 Day System (Sensor) Freestyle Eduar 2 Flash Glucose Monitoring 14 Day System (Sensor), See Instructions, 2 EA, 0, Freestyle Eduar Flash Glucose Monitoring 14 Day System (Sensor). Replace sensor every 14 days., [id number], Supply, 152, cm, 11/08/23 14:53:00 EST, Height/Length Dosing, 51.2, kg, 11/08/23 14:53:00 EST, Weight Dosing Start Date: 11/08/23 Status: OrderedStart: 92-32-8309Imviigvne Eduar 2 Flash Glucose Monitoring 14 Day System (Sensor) Freestyle Eduar 2 Flash Glucose Monitoring 14 Day System (Sensor), See Instructions, 2 EA, 0, Freestyle Eduar Flash Glucose Monitoring 14 Day System (Sensor). Replace sensor every 14 days., [id number], Supply, 152.4, cm, 09/30/23 13:04:00 EDT, Height/Length Dosing, 47.7, kg, 09/30/23 13:04:00 EDT, Weight Dosing Start Date: 09/30/23 Status: OrderedStart: 07-12-2023 Freestyle Eduar 2 Flash Glucose Monitoring 14 Day System (Sensor) Freestyle Eduar 2 Flash Glucose Monitoring 14 Day System (Sensor), See Instructions, 6 EA, 0, Freestyle Eduar Flash Glucose Monitoring 14 Day System (Sensor). Replace sensor every 14 days., [id number], Supply, 152.4, cm, 07/12/23 11:38:00 EDT, Height/Length Dosing, 51.8, kg, 07/12/23 11:38:00 EDT, Weight Dosing Start Date: 07/12/23 Status: OrderedFreestyle Eduar 2 sensor (10 sources)Start: 10-18-1280Mmqslhrwv Eduar 2 sensor Freestyle Eduar 2 sensor, See Instructions, 6 EA, 1, Free style Eduar 2, [id number], Supply, 152, cm, 12/14/23 9:14:00 EST, Height/Length Dosing, 52, kg, 12/14/23 9:14:00 EST, Weight Dosing Start Date: 12/23/23 Status: Orderedgabapentin 100 mg oral capsule (13 sources)Anti-epileptic AgentStart: 33-87-8046kktw 2 capsules by mouth at bedtimegabapentin (Neurontin) 100 MG capsule Indications: Chronic cough Take 2 capsules (200 mg) by mouth at bedtime 60 capsule 2 07/19/2025 ActiveStart: 05-22-2025 End: 85-93-0639yymj 1 capsule by mouth at bedtimegabapentin (Neurontin) 100 MG capsule Indications: Chronic cough Take 1 capsule (100 mg) by mouth at bedtime 30 capsule 2 05/22/2025 07/19/2025 Discontinued (Reorder)Glucagon (20 sources)Antihypoglycemic AgentStart: 19-32-0733Rddotzyh (Gvoke) 1 mg/0.2 mL solution Active 1 MG SUBCUT Q20M as needed October 03, 2025 12:00am until target blood sugar attained Complies with drug therapyStart: 08-07-2025 End: 04-26-6152tbqqld 0.2 mL by subcutaneous injection onceglucagon (Gvoke HypoPen 1-Pack) 1 MG/0.2ML injection Indications: Type 2 diabetes mellitus with hyperglycemia, with long-term current use of insulin (HCC) , Hypoglycemia Inject 0.2 mL (1 mg) under the skin 1 (one) time if needed for low blood sugar 1 each 1 08/07/2025 08/07/2026 ActiveStart: 68-87-0401ltsxdx 1 mg by subcutaneous injection onceGvoke HypoPen 2-Pack 1 MG/0.2ML injection Inject 1 mg under the skin 1 (one) time if needed 09/29/2024 Activeibandronic acid 150 mg oral tablet (20 sources)BisphosphonateStart: 87-12-8844uclw 1 tablet by mouth every month Ibandronate 150 mg tablet Active 150 MG PO every month October 03, 2025 12:00am Complies with drug therapyStart: 23-68-1354nlay 150 mg by mouth every monthibandronate 150 mg, Oral, qMonth, Refills(s) 0 Start Date: 06/28/24 Status: OrderedStart: 05-10-2024 End: 27-56-6398fteh 1 tablet by mouth every 30 days in the morningibandronate (Boniva) 150 MG tablet Indications: Osteoporosis, unspecified osteoporosis type, unspecified pathological fracture presence Take 1 tablet (150 mg) by mouth every 30 (thirty) days Take in morning with full glass of water on an empty stomach. No food, drink, meds, or lying down for 60 minutes after. 1 tablet 11 05/10/2024 ActiveStart: 25-35-1570uwqh 1 tablet by mouth every monthibandronate 150 mg oral tablet See Instructions, 1 tab(s) Oral qMonth, # 1 tab(s), Refills(s) 4, Pha rmacy: [facility] Start Date: 07/12/19 Status: Ordered3 ml insulin glargine 100 unt/ml pen injector (20 sources)Insulin AnalogStart: 57-82-0045vaxtrn 10 [IU] by subcutaneous injection twice dailyInsulin Glargine (Lantus Solostar U-100 Insulin) 100 unit/mL (3 mL) insulin pen Active 10 UNIT SUBCUT Twice daily October 03, 2025 12:00am Complies with drug therapyStart: 33-22-0909hzohyv 10 [IU] by subcutaneous injection once daily at bedtimeinsulin glargine (Lantus SoloStar) 100 UNIT/ML pen Indications: Type 2 diabetes mellitus with hyperglycemia, with long-term current use of insulin (HCC) INJECT 10 UNITS UNDER THE SKIN EVERY DAY AT BEDTIME 15 mL 1 06/19/2025 ActiveStart: 03-12-2025 End: 36-64-0608dyemuc 10 [IU] by subcutaneous injection at bedtimeinsulin glargine (Lantus SoloStar) 100 UNIT/ML pen Indications: Type 2 diabetes mellitus with hyperglycemia, with long-term current use of insulin (HCC) Inject 10 Units under the skin at bedtime 20 mL 1 03/12/2025 06/10/2025 ActiveStart: 02-17-2024 inject 10 [IU] by subcutaneous injection twice dailyStart: 71-74-5098pnfdwho glargine (LANTUS SOLOSTAR/BASAGLAR KWIKPEN) 100 UNIT/ML PEN injectionStart: 37-99-3626Fzoouq Solostar Pen 100 units/mL subcutaneous solution 20 unit(s), SubCutaneous, Daily, # 15 mL, Refills(s) 1, Pharmacy: [facility] #[id number], 152, cm, 09/15/23 19:17:00 EDT, Height/Length Dosing, 44.9, kg, 09/15/23 19:17:00 EDT, Weight Dosing Start Date: 09/21/23 Status: OrderedStart: 65-85-3427kreray 10 [IU] by subcutaneous injection twice dailyLantus Solostar Pen 100 units/mL subcutaneous solution 10 unit(s), SubCutaneous, BID, # 15 mL, Refills(s) 1, Pharmacy: [facility]/pharmacy #[id number], 152, cm, 09/15/23 19:17:00 EDT, Height/Length Dosing, 44.9, kg, 09/15/23 19:17:00 EDT, Weight Dosing Start Date: 09/21/23 Status: Ordered End: 82-63-1759ewaspb 10 [IU] by subcutaneous injection twice dailyLantus SoloStar 100 UNIT/ML pen INJECT 10 UNITS SUBCUATANEOUSLY TWICE A DAY 03/12/2025 Discontinued3 ml insulin lispro 100 unt/ml pen injector (20 sources)Insulin AnalogStart: 87-51-9578lxtqxt 100 [IU] by subcutaneous injection three times dailyInsulin Lispro (Humalog Kwikpen Insulin) 100 unit/mL insulin pen Active 100 UNIT SUBCUT Three timesdaily October 03, 2025 12:00am Complies with drug therapyStart: 40-52-5868chfujgq lispro (HumaLOG KWIKPEN) 100 UNIT/ML injection Indications: Type 2 diabetes mellitus with hyperglycemia (HCC) INJECT 3 UNITS BEFORE MEALS PLUS ISS. (EXPECT DAILY DOSE 20 UNITS) 15 mL 1 09/03/2025 ActiveStart: 06-19-2024 End: 10-42-1035Wkoovce Lispro Sliding Scale 0-10 Unit(s), Injection-Insulin, SubCutaneous, Start date 06/19/24 8:00:00 PM EDT Start Date: 06/19/24 Stop Date: 06/19/24 Status: CompletedStart: 06-19-2024 End: 46-45-4829Hjcrdcr Lispro Sliding Scale 0-10 Unit(s), Injection-Insulin, SubCutaneous, Start date 06/19/24 2:00:00 PM EDT Start Date: 06/19/24 Stop Date: 06/19/24 Status: CompletedStart: 85-61-6306vboicql lispro (HumaLOG) 100 UNIT/ML injectionStart: 67-04-4916ZmjcHXA KWIKPEN 100 UNIT/ML injection 09/21/2023 ActiveStart: 63-66-2063QtjlJXH KWIKPEN 100 UNIT/ML injection See Instructions, TID AC MEALS 150-200 2U, 201-250 4U, 251-300 6U, 301-350 8U,351-400 10U, > 401 12U AND CALL PCP, # 15 mL, Refills(s) 0, Pharmacy: [facility]/pharmacy #[id number], 152, cm, 09/15/23 19:17:00 EDT, Height/Length Dosing, 44.9, kg, 09/15/23 19:17:00 EDT, Weight Dosing 09/21/2023 ActiveStart: 44-00-7348AvudPRW KwikPen 100 units/mL injectable solution See Instructions, TID AC MEALS 150-200 2U, 201-2504U, 251- 300 6U, 301-350 8U,351-400 10U, > 401 12U AND CALL PCP, # 15 mL, Refills(s) 0, Pharmacy:[facility]/pharmacy #[id number], 152, cm, 09/15/23 19:17:00 EDT, Height/Length Dosing, 44.9, kg, 09/15/23 19:17:00 EDT, Weight Dosing Start Date: 09/21/23 Status: OrderedStart: 09-21-2023 End: 66-64-2073HcihKLX Sliding Scale 0-10 Unit(s), Injection-Insulin, SubCutaneous, Start date 09/21/23 7:30:00 AMEDT Start Date: 09/21/23 Stop Date: 09/21/23 Status: CompletedStart: 09-20-2023 End: 32-64-4900AmceFWL Sliding Scale 0-10 Unit(s), Injection-Insulin, SubCutaneous, Start date 09/20/23 4:30:00 PMEDT Start Date: 09/20/23 Stop Date: 09/20/23 Status: CompletedStart: 09-20-2023 End: 58-38-8135KubdPUI Sliding Scale 0-10 Unit(s), Injection-Insulin, SubCutaneous, Start date 09/20/23 11:30:00 AM EDT Start Date: 09/20/23 Stop Date: 09/20/23 Status: Completedlosartan potassium 50 mg oral tablet (20 sources)Angiotensin 2 Receptor BlockerStart: 25-19-6819vaho 1 tablet by mouth once dailyLosartan 50 mg tablet Active 50 MG PO Daily October 03, 2025 12:00am Complies with drug therapyStart: 04-29-2023 End: 70-58-3212dsig 1 tablet by mouth in the morninglosartan (Cozaar) 50 MG tablet Take 50 mg by mouth in the morning. 07/05/2023 ActiveStart: 07-12-2019 take 1 tablet by mouth once dailylosartan 50 mg Tab 50 mg = 1 tab(s), Oral, Daily, Refills(s) 0 Start Date: 07/12/19 Status: Orderedmegestrol acetate 20 mg oral tablet (3 sources)ProgestinStart: 48-93-2193dvvh 1 tablet by mouth four times daily megestrol 20 mg Tab See Instructions, TAKE 1 TABLET BY MOUTH FOUR TIMES A DAY, # 360 tab(s), Refills(s) 1, Pharmacy: [id number], 152, cm, 09/15/23 19:17:00 EDT, Height/Length Dosing, 44.9, kg, 09/15/23 19:17:00 EDT, Weight Dosing Start Date: 09/28/23 Status: OrderedStart: 39-20-4129lcva 1 tablet by mouth four times dailymegestrol 20 mg Tab 20 mg = 1 tab(s), Oral, QID, # 120 tab(s), Refills(s) 0, Pharmacy: [facility]/pharmacy#[id number], 152, cm, 08/30/23 11:25:00 EDT, Height/Length Dosing, 47.6, kg, 08/30/23 11:25:00 EDT, Weight Dosing Start Date: 08/30/23 Status: OrderedmetFORMIN hydrochloride 500 mg oral tablet (10 sources)BiguanideStart: 85-36-9931idydilbsm 500 mg ER Tab See Instructions, 1 tab(s) Oral, Refills(s) 0 Start Date: 04/08/22 Status: OrderedStart: 07-12-2019 metformin 500 mg ER Tab 1,000 mg = 2 tab(s), Oral, AMPM, Refills(s) 0 Start Date: 07/12/19 Status: OrderedmethylPREDNISolone 4 mg oral tablet (2 sources)CorticosteroidStart: 03-18-2023 End: 81-07-7826Lmmswn 4 mg Tab = 1 packet(s), Oral, As Directed, as directed on package labeling, X 6 day(s), # 21tab(s), Refills(s) 0, Pharmacy: [facility]/pharmacy #[id number], 152.4, cm, 03/18/23 11:16:00 EDT, Height/LengthDosing, 52.7, kg, 03/18/23 11:16:00 EDT, Weight Dosing Start Date: 03/18/23 Stop Date: 03/24/23 Status: Orderedmiconazole nitrate 0.02 mg/mg topical powder (1 source)Azole AntifungalStart: 73-24-3486fcwvbysnol (MICONAZORB AF) 2 % powder Multiple Vitamins-Minerals (PRESERVISION AREDS PO) (20 sources)Multiple Vitamins-Minerals (PRESERVISION AREDS PO) Take by mouth ActiveMultivitamin preparation (16 sources)Start: 69-45-7926czco 1 tablet by mouth once dailymultivitamin 1 tab(s), Oral, Daily, Refill(s) 0 Start Date: 03/01/23 Status: OrderedStart: 75-33-9038fbgfsexdfpxq See Instructions, Refill(s) 0, Take one orally daily Start Date: 03/01/23 Status: TyjcyutJajwhelaaict-Bqpdkjqm-Rulabx tablet (1 source)Start: 70-55-9532hlxj 1 tablet by mouth three times weekly Vaopilstkygp-Qnhbzkuc-Aahmbe tablet Active 1 TAB PO .COMPLEX October 03, 2025 12:00am 1 tab orally; 3 times a week Complies with drug therapynaproxen sodium 220 mg oral tablet (1 source)Nonsteroidal Anti-inflammatory DrugStart: 28-97-3636apby 2 tablets by mouth once daily at bedtime as neededNaproxen Sodium (Aleve) 220 mg tablet Active 440 MG PO Daily at bedtime as needed October 03, 2025 12:00am Complies with drug therapynystatin 966359 unt/ml oral suspension (1 source)Polyene AntifungalStart: 74-65-0190cxwg 643553 [IU] by mouth every six hoursnystatin 100,000 units/mL Oral Susp 100,000 unit(s) = 1 mL, Oral, q6hr, # 1 EA, Refills(s) 0, [id number], cm, 10/06/23 16:04:00 EST, Height/Length Dosing, 50.2, kg, 10/06/23 16:04:00 EST, Weight Dosing Start Date: 11/03/23 Status: Orderedomeprazole 20 mg delayed release oral capsule (20 sources)Proton Pump InhibitorStart: 94-90-0041lkzy 1 capsule by mouth twice dailyOmeprazole 20 mg capsule,delayed release(DR/EC) Active 20 MG PO Twice daily October 03, 2025 12:00am Complies with drug therapyStart: 24-29-6985ucju 1 capsule by mouth once dailyomeprazole 20 mg Cap-DR 20 mg = 1 cap(s), Oral, Daily, # 90 cap(s), Refills(s) 0, [id number] 152, cm, 08/08/24 10:51:00 EDT, Height/Length Dosing, 60.1, kg, 08/08/24 10:51:00 EDT, W eight Dosing Start Date: 08/08/24 Status: Ordered2 ml ondansetron 2 mg/ml injection (4 sources)Serotonin-3 Receptor AntagonistStart: 75-13-0256qobrzrviptm (ZOFRAN) 4 MG/2ML injectionStart: 48-61-2726lxyx 1 tablet by mouth every six hours as needed for nauseaZofran 4 mg Tab 4 mg = 1 tab(s), Oral, q6hr, PRN Nausea, Take one tab by mouth every six hours as needed for nausea, # 10 tab(s), Refills(s) 0, Pharmacy: [facility]/pharmacy #[id number], 152, cm, 12/14/23 9:14:00EST, Height/Length Dosing, 52, kg, 12/14/23 9:14:00 EST, Weight Dosing Start Date: 12/14/23 Status: Kgsdoup95 hr oxybutynin chloride 10 mg extended release oral tablet (7 sources)Cholinergic Muscarinic AntagonistStart: 64-05-0359qjar 1 tablet by mouth once dailyoxybutynin 10 mg ER Tab 10 mg = 1 tab(s), Oral, Daily, Refills(s) 0 Start Date: 04/08/22 Status: Orderedpetrolatum 0.49 mg/mg / zinc oxide 0.15 mg/mg topical ointment (1 source)Start: 42-45-9357zqlrgrbxli-zinc oxide (SENSI-CARE) 49-15 % ointment polyethylene glycol 3350 20585 mg powder for oral solution (1 source)Osmotic LaxativeStart: 77-37-3401Vcwjvrawptgk Glycol 3350 (Miralax) 17 gram/dose powder Active 17 GM PO Daily as needed October 03, 2025 12:00am Complies with drug therapyPreserVision AREDS (7 sources)Start: 93-66-6118qgaw 2 tablets by mouth once dailyPreserVision AREDS 2 tablets daily, Oral, Daily, Refill(s) 0 Start Date: 06/28/24 Status: Ordered Start: 22-38-2861CvmbjpDppssu AREDS See Instructions, Refill(s) 0, Take one daily Start Date: 04/11/24 Status: Orderedpropranolol hydrochloride 60 mg oral tablet (20 sources)beta-Adrenergic BlockerStart: 38-79-1412Oihxuakixmv 60 mg tablet Active 90 MG PO Daily at bedtime October 03, 2025 12:00am Complies with drug therapyStart: 83-72-2210seme 0.5 tablet by mouth once dailypropranolol 60 mg, Oral, Daily, take one and one-half tablets daily (90 mg), Refills(s) 0 Start Date: 06/28/24 Status: OrderedStart: 06-20-2024 End: 19-51-4803uiwyalrllzb 40 mg Tab 60 mg = 1.5 tab(s), Oral, Bedtime, Refills(s) 0 Start Date: 06/21/24 Status: OrderedStart: 46-04-7086emoeuanafyh tablet 30 mgStart: 83-00-0864aybh 1 tablet by mouth in the morningpropranolol (Inderal) 60 MG tablet Take 60 mg by mouth in the morning. 09/09/2023 Active Start: 24-68-9377yevd 1 tablet by mouth at bedtimepropranolol 60 mg oral tablet 60 mg = 1 tab(s), Oral, Bedtime, Refills(s) 0 Start Date: 07/12/19 Status: Ordered1 mg dose 1.5 ml semaglutide 1.34 mg/ml pen injector (6 sources)Start: 46-99-5095lcumvv 0.5 mg by subcutaneous injection every week Ozempic 2 mg/1.5 mL (1 mg dose) subcutaneous solution 0.5 mg, SubCutaneous, qWeek, 4 EA, Refill(s) 1, [id number], 152.4, cm, 03/18/23 11:16:00 EDT, Height/Length Dosing, 52.7, kg, 03/18/23 11:16:00 EDT, Weight Dosing Start Date: 04/29/23 Status: OrderedStart: 08-07-9802ewfepc 0.5 mg by subcutaneous injection every weekOzempic 2 mg/1.5 mL (0.25 mg or 0.5 mg dose) subcutaneous solution 0.5 mg, SubCutaneous, qWeek, 4 EA, Refill(s) 0, [id number], 152.4, cm, 03/01/23 11:46:00 EDT, Height/Length Dosing, 56.3, kg, 03/01/23 11:46:00 EDT, Weight Dosing Start Date: 03/01/23 Status: OrderedStart: 46-44-9640aoinwb 0.25 mg by subcutaneous injection every weekOzempic 2 mg/1.5 mL (0.25 mg or 0.5 mg dose) subcutaneous solution 0.25 mg, SubCutaneous, qWeek, 4 EA, Refill(s) 0, [id number], 152.4, cm, 02/08/23 17:28:00 EDT, Height/Length Dosing, 58.2, kg, 02/08/23 17:28:00 EDT, Weight Dosing Start Date: 02/08/23 Status: Orderedsennosides, nursing home 8.6 mg oral tablet (1 source)Start: 60-37-1532zaffm (SENOKOT) tabletSITagliptin 25 mg oral tablet (1 source)Dipeptidyl Peptidase 4 InhibitorStart: 52-78-8734Xrjgunm 25 mg Tab 25 mg = 1 tab(s), Oral, Daily, take if blood sugar > 150, Refills(s) 0 Start Date: 02/08/23 Status: OrderedtiZANidine 4 mg oral tablet (20 sources)Central alpha-2 Adrenergic AgonistStart: 35-02-4211xurx 2 mg by mouth once daily at bedtimeTizanidine 4 mg tablet Active 2 MG PO Daily at bedtime October 03, 2025 12:00am Complies with drug therapyStart: 06-28-2024 take 0.5 tablet by mouth at bedtimetizanidine 4 mg, Oral, Bedtime, take one and one-half tablet at bedtime, Refills(s) 0 Start Date: 06/28/24 Status: Ordered Start: 71-84-4386toMTPwienn (Zanaflex) 4 MG tablet Indications: Cramp and spasm TAKE 1 TO 1 & 1/2 TABLETS BY MOUTH AT BEDTIME FOR 90 DAYS 135 tablet 1 06/27/2024 ActiveStart: 07-12-2023 End: 17-00-3379pjoy 1 capsule by mouth at bedtimetizanidine 4 mg oral capsule 4 mg = 1 cap(s), Oral, Bedtime, Refills(s) 0 Start Date: 07/12/23 Status: Ordered traMADol hydrochloride 50 mg oral tablet (1 source)Opioid AgonistStart: 13-42-1931djytvhef (ULTRAM) tablettraZODone hydrochloride 50 mg oral tablet (20 sources)Serotonin Reuptake InhibitorStart: 77-10-7051Jlkgejyzb 50 mg tablet Active 25 MG PO Daily at bedtime October 03, 2025 12:00am Complies with drug therapyStart: 22-35-5632blne 0.5 tablet by mouth once daily at bedtimetraZODONE 50 mg Tab See Instructions, TAKE 1/2 TABLET BY MOUTH ONCE DAILY AT BEDTIME, # 45 tab(s), Refills(s) 1, [facility]acy: [id number], 152, cm, 04/11/24 10:19:00 EDT, Height/Length Dosing, 56.5,kg, 04/11/24 10:19:00 EDT, Weight Dosing Start Date: 04/19/24 Status: OrderedStart: 26-05-3214krfHZQVTR 50 mg Tab 25 mg = 0.5 tab(s), Oral, Once a day (at bedtime), # 15 tab(s), Refills(s) 0, Pharmacy: [facility]/pharmacy #[id number], 152.4, cm, 09/30/23 13:04:00 EDT, Height/Length Dosing, 47.7, kg, 09/30/23 13:04:00 EDT, Weight Dosing Start Date: 09/30/23 Status: OrderedtraZODone (Desyrel) 50 MG tablet ActiveVitamin D 1000 intl units (25 mcg) Tab (19 sources)Start: 35-76-9044sqtx 1 tablet by mouth once dailyVitamin D 1000 intl units (25 mcg) Tab 75 mcg = 3 tab(s), Oral, Daily, Refills(s) 0 Start Date: 04/08/22 Status: OrderedStart: 68-26-7402ledj 1 tablet by mouth once daily Vitamin D 1000 intl units (25 mcg) Tab 50 mcg = 2 tab(s), Oral, Daily, Refills(s) 0 Start Date: 04/08/22 Status: OrderedVitamin D3 (3 sources)Start: 66-99-3318pppf 1 capsule by mouth once daily, then take 3 capsules by mouth once dailyVitamin D3 25 mcg, Oral, Daily, take 3 caps daily, Refills(s) 0 Start Date: 06/28/24 Status: Ordered Completed/Discontinued Medications MedicationDrug Class(es)DatesSig (Normalized)Sig (Original)betamethasone 0.5 mg/ml / clotrimazole 10 mg/ml topical cream (6 sources)Azole Antifungal, CorticosteroidStart: 09-21-2024 End: 86-96-2717hhewdsmvevau-betamethasone (Lotrisone) cream Indications: Candidiasis of vulva and vagina APPLY TO AFFECTED AREA TWICE A DAY FOR 14 DAYS 15 g 1 09/21/2024 03/14/2025 DiscontinuedBlood Pressure Monitor (3 sources)Start: 09-34-9847Pxvzt Pressure Monitor Blood Pressure Monitor, See Instructions, 1 EA, 0, Arm BP monitor, Supply Start Date: 05/11/24 Status: Orderedempagliflozin 10 mg oral tablet (18 sources)Sodium-Glucose Cotransporter 2 InhibitorStart: 10-28-2023 End: 93-44-4434jxiy 1 tablet by mouth once daily in the morningJardiance 10 MG See Instructions, TAKE 1 TABLET BY MOUTH EVERY DAY IN THE MORNING, # 30 tab(s), Refills(s) 0, Pharmacy: [id number], 152, cm, 12/14/23 9:14:00 EST, Height/Length Dosing, 52, kg, 12/14/23 9:14:00 EST, Weight Dosing 12/27/2023 03/14/2025 DiscontinuedGlucose (15 sources)Start: 50-15-2601Avnnzni Kit Glucose Kit, See Instructions, 1 EA, 0, Glucose meter. Include autolet, matching test strips, lancets, & alcohol wipes, #100 or as allowed by insurance; DX: E11.9, [facility]/pharmacy #[id number],Supply, 152, cm, 12/14/23 9:14:00 EST, Height/Length Dosing, 52, kg, 12/14/23 9:14:00 EST, Weight Dosing Start Date: 12/22/23 Status: OrderedStart: 10-40-4950Cvfowdb Kit Glucose Kit, See Instructions, 1 EA, 0, Glucose meter. Include autolet, matching test strips, lancets, & alcohol wipes, #100 or as allowed by insurance; DX: E11.9, [facility]/pharmacy #[id number],Supply, 152.4, cm, 07/12/23 11:38:00 EDT, Height/Length Dosing, 51.8, kg, 07/12/23 11:38:00 EDT, Weight Dosing Start Date: 07/14/23 Status: OrderedhydrALAZINE (APRESOLINE) 10 mg in sodium chloride 0.9 % 50 mL IVPB (1 source)Start: 01-04-2024 End: 08-03-8182gcriYGKVAEF (APRESOLINE) 10 mg in sodium chloride 0.9 % 50 mL IVPBibuprofen 200 mg oral tablet (1 source)Nonsteroidal Anti-inflammatory DrugStart: 01-04-2024 End: 84-08-7272ngkzfmjud (MOTRIN) tabletinsulin, regular, human 100 unt/ml injectable solution (1 source)InsulinStart: 01-03-2024 End: 01-71-6403nvdevsv regular (HumuLIN R) 100 UNIT/ML injectionlevETIRAcetam 750 mg oral tablet (12 sources)Start: 01-05-2024 End: 08-82-8838gwkp 1 tablet by mouth in the morninglevETIRAcetam (Keppra) 750 MG tablet Take 750 mg by mouth in the morning and 750 mg in the evening. 01/05/2024 03/14/2025 DiscontinuedStart: 01-03-2024 End: 00-40-8837wmxWZJZQminrl (KEPPRA) tablet 750 mgStart: 01-03-2024 End: 44-17-0903lutGGDVYgsucg in NaCl 0.82% 100mL (KEPPRA) ivpb 500 mg 100 mL metoprolol 1 mg/mL Inj (3 sources)Start: 06-17-2024 End: 82-54-6684qeqgaqqhkt 1 mg/mL Inj 5 mg = 5 mL, Injection, IV Push, Start date 06/17/24 4:00:00 PM EDT, Hold if systolic blood pressure is less than 90 or heart rate less than 60 Start Date: 06/17/24 Stop Date: 06/17/24 Status: Completed Start: 06-17-2024 End: 33-55-9586wmfplbnxds 1 mg/mL Inj 5 mg = 5 mL, Injection, IV Push, Start date 06/17/24 12:00:00 PM EDT, Hold ifsystolic blood pressure is less than 90 or heart rate less than 60 Start Date: 06/17/24 Stop Date: 06/17/24 Status: Completed Start: 09-15-2023 End: 92-00-4000cvywtv 2.5 mg intravenously oncemetoprolol 1 mg/mL Inj 2.5 mg = 2.5 mL, Injection, IV Push, Once, Stop date 09/15/23 7:48:42 PM EDT, STAT, Start date 09/15/23 7:40:00 PM EDT, 09/15/23 19:40:00 EDT Start Date: 09/15/23 Stop Date: 09/15/23 Status: CompletedPen [place] (14 sources)Start: 75-90-2120Zkw [place], See Instructions, 100 EA, 3, To be used with giving insulin TID. Dx: E11.65, [facility]/pharmacy #[id number], Supply, 152, cm, 09/15/23 19:17:00 EDT, Height/Length Dosing, 44.9, kg, 09/15/23 19:17:00 EDT, Weight Dosing Start Date: 09/23/23 Status: Fbiczgq8294 ml sodium chloride 9 mg/ml injection (3 sources)Start: 01-03-2024 End: 07-46-1447texzuf chloride 0.9 % iv infusionStart: 09-21-2023 End: 19-27-9784nyuq 1 tablet by mouth twice dailysodium chloride 1 g Tab 1 gm = 1 tab(s), Oral, BID, X 10 day(s), # 20 tab(s), Refills(s) 0, Pharmacy: [facility]/pharmacy #[id number], 152, cm, 09/15/23 19:17:00 EDT, Height/Length Dosing, 44.9, kg, 09/15/23 19:17:00 EDT, Weight Dosing Start Date: 09/21/23 Stop Date: 10/01/23 Status: OrderedSymbicort 160/4.5 inhalation aerosol with adapter (18 sources)Start: [id number] 1 dose by inhalation twice dailySymbicort 160/4.5 inhalation aerosol with adapter 2 puff(s), Inhalation, BID, 1 EA, Refill(s) 0, [facility]/pharmacy #[id number], 152.4, cm, 02/08/23 17:28:00 EDT, Height/Length Dosing, 58.2, kg, 02/08/23 17:28:00 EDT, Weight Dosing Start Date: 02/08/23 Status: Ordered Problems Active Problems Problem ClassificationProblemDateDocumented DateEpisodic/Chronic Administrative/social admission (6 sources)Patient encounter status; Translations: [Dietary counseling and surveillance][id number] aftercare (1 source)[facility] (current) use of oral hypoglycemic drugs; Translations: [[facility] OFFICER USE ORAL HYPOGLYCEMIC DX]Onset: 31-72-5283CczykgxpWelss aftercare (1 source)Other half-way (current) drug therapy; Translations: [OTH JAIL CURRENT DRUG THERAPY]Onset: 25-38-1106XjukouymHxbtt bone disease and musculoskeletal deformities (20 sources)Osteopenia; Translations: [Other specified disorders of bone density and structure, unspecified site]Onset: 436168-37-4390YlibqiwhNqzvd connective tissue disease (2 sources)Muscle atrophy; Translations: [Muscle wasting and atrophy, not elsewhere classified, right lower leg]EpisodicOther diseases of bladder and urethra (1 source)Detrusor overactivity; Translations: [Overactive bladder]Onset: 39-08-7433PqriqbrOrxop diseases of bladder and urethra (20 sources)Overactive bladder; Translations: [Overactive bladder]Onset: 03-06-2025 Resolved: 561742-49-2497ZviqrupEqnnp endocrine disorders (8 sources)Hypoglycemia; Translations: [Hypoglycemia, unspecified]Onset: 59-55-2499EkfndfaIyrrc lower respiratory disease (4 sources)Interstitial pulmonary disease, unspecified; Translations: [INTERSTITIAL PULMONARY DISEASE UNS]Onset: 14-05-8763YlptpvuTaaen lower respiratory disease (20 sources)Interstitial lung disease; Translations: [Interstitial pulmonary disease, unspecified]Onset: 09-15-2023 Resolved: 434742-46-0325ZrictpgOcmpc lower respiratory disease (8 sources)Chronic cough; Translations: [Chronic cough]Onset: 04-07-2023 44-01-4000LsmgtbmxRtdqq nervous system disorders (1 source)Disorder of brain; Translations: [Encephalopathy, unspecified]Onset: 18-69-2214SejtgwzIscoq nervous system disorders (1 source)Difficulty walking; Translations: [Difficulty in walking, not elsewhere classified]69-00-7049QseneduVegxq nervous system disorders (2 sources)Piriformis unpykxeb07-26-4424VomumtzPjcol upper respiratory infections (1 source)Acute maxillary sinusitis, unspecified; Translations: [ACUTE MAXILLARY SINUSITIS UNS]Onset: 31-95-4903XknizxfhRpvplewu codes; unclassified (1 source)Family history of malignant neoplasm of digestive organs; Translations: [FAM HX MALIG NEOPLASM DIGESTIV ORGN]Onset: 31-09-4844Lurhmnbj Residual codes; unclassified (1 source)Family history of malignant neoplasm of trachea, bronchus and lung; Translations: [FAM HX MALIG NEOPLSM TRACH BRON LNG]Onset: 89-94-5246Dlyrkkni Unclassified (7 sources)Patient encounter szbokq03-01-1718Dhvoennfvywa (16 sources)Body mass index 20-24 - -37-2833Xdogsuiatwba (4 sources)COUGH, UNSPECIFIED; Translations: [COUGH, UNSPECIFIED]Onset: 68-44-6110Eytllxuxjvrn (1 source)CONTACT W/AND (SUSP) EXPOS COVID-19; Translations: [CONTACT W/AND (SUSP) EXPOS COVID-19]Onset: 49-65-1450Bcswdugtpczd (15 sources)Pain of right shoulder -37-8841Ywjmnkbanvog (14 sources)Long-term current use of rvejkmg23-18-7546Puzoiuq on above:Current Medication List includes Lantus and Humalog. added per OP CDI policy.Urinary tract infections (1 source)Urinary tract infectious disease; Translations: [Urinary tract infection, site not specified]Onset: 45-21-1422Ayeaovoy Past or Other Problems Problem ClassificationProblemDateDocumented DateEpisodic/ChronicAcute cerebrovascular disease (20 sources)Hemorrhage into subarachnoid space of neuraxis; Translations: [Nontraumatic subarachnoid hemorrhage, unspecified]Onset: 01-03-2024 Resolved: 537390-63-7514PbhwswgPjugaap disorders (20 sources)Anxiety disorder; Translations: [Anxiety disorder, unspecified] Onset: 04-09-2022 Resolved: 26-00-2723MmndytdMmxafoyru infection; unspecified site (3 sources)Pertussis; Translations: [Whooping cough, unspecified species without pneumonia]Onset: 09-27-2025 Resolved: 836099-61-9644EkmmoptlFiiecbl obstructive pulmonary disease and bronchiectasis (20 sources)Bronchiectasis; Translations: [Bronchiectasis, uncomplicated]Onset: 03-06-2025 Resolved: 902146-51-3877PqouufqRsckbyvyfx associated with dizziness or vertigo (20 sources)Dizziness; Translations: [Dizziness and giddiness]Onset: 03-06-2025 Resolved: 167908-13-2484IynfvpkuWixvjmou mellitus with complications (20 sources)Type 2 diabetes mellitus with unspecified complications; Translations: [Type 2 diabetes mellitus with diabetic polyneuropathy]Onset: 10-05-2022 Resolved: 91-15-1559VvxrigmEwkegiaj mellitus without complication (20 sources)Type 2 diabetes mellitus without complication; Translations: [Type 2 diabetes mellitus without complications]Onset: 09-15-2023 Resolved: 06-27-3439FkiwuhaUzbpzry on above:linked DM with HLD per OP CDI policy.Disorders of lipid metabolism (20 sources)Hyperlipidemia; Translations: [Hyperlipidemia, unspecified]Onset: 04-09-2022 Resolved: 90-36-0120ZziwgtnVjmugsjaio disorders (20 sources)Gastroesophageal reflux disease without esophagitis; Translations: [Gastro-esophageal reflux disease without esophagitis]Onset: 04-09-2022 Resolved: 00-94-8713DfwkwwrRexgcgtqv hypertension (20 sources)Essential hypertension; Translations: [Essential (primary) hypertension]Onset: 04-09-2022 Resolved: 41-43-2163CwplprqTlltp and electrolyte disorders (20 sources)Hypo-osmolality and or hyponatremia; Translations: [Hypo-osmolality and hyponatremia]Onset: 04-08-2022 Resolved: 59-27-9928MpqnpinmNpluvjmorzixn symptoms and ill-defined conditions (3 sources)Genuine stress incontinence; Translations: [Stress incontinence (female) (male)]Onset: 06-22-2024 Resolved: 096689-70-8878MdgotywFwtpxpijyvstx symptoms and ill-defined conditions (20 sources)Urinary symptoms ; Translations: [Unspecified symptoms and signs involving the genitourinary system]Onset: 03-06-2025 Resolved: 783790-55-7216XugousjwQjxnklwl; including migraine (17 sources)Migraine; Translations: [Migraine, unspecified, not intractable, without status migrainosus]Onset: 03-06-2025 Resolved: 994116-79-2611BspumjfDnogoyznat obstruction without hernia (20 sources)Intestinal obstruction; Translations: [Unspecified intestinal obstruction, unspecified as to partial versus complete obstruction]Onset: 06-15-2024 Resolved: 91-10-8178DritecxsMqcvzpf and fatigue (20 sources)Other fatigue; Translations: [Asthenia]Onset: 03-27-2023 Resolved: 829215-85-0353YbtcjrtzLbst disorders (20 sources)Recurrent major depression in full remission; Translations: [Major depressive disorder, recurrent, in full remission]Onset: 01-03-2024 Resolved: 272693-32-4089GvqwdmkAcatjbv on above:added per 09/28/2023 query response.Mycoses (20 sources)Mycosis; Translations: [Candidal vulvovaginitis]Onset: 03-06-2025 Resolved: 222349-24-8097XgepvjvrXscmje and vomiting (6 sources)Nausea and vomiting; Translations: [Nausea with vomiting, unspecified]Onset: 09-20-2023 Resolved: 73-14-1398FbgtrmbaGtjldijjfgyk breast conditions (5 sources)Unspecified lump in left breast, subareolar; Translations: [Other benign mammary dysplasias of leftbreast]Onset: 20-32-8151KfeniegaNlhlpxfurin deficiencies (20 sources)Vitamin D deficiency; Translations: [Vitamin D deficiency, unspecified]Onset: 09-30-2022 Resolved: 315848-69-3706SbanbdtEfthphjfvvu deficiencies (3 sources)Undernutrition; Translations: [Nutritional deficiency, unspecified] Onset: 09-26-2025 Resolved: 067783-58-8016LlfsorucNhbqh aftercare (7 sources)Long-term current use of drug therapy; Translations: [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]Onset: 09-15-2023 Resolved: 25-07-1512LvtcmkqjDwdyi aftercare (20 sources)Post-discharge follow-up; Translations: [Encounter for follow-up examination after completed treatment for conditions other than malignant neoplasm]Onset: 03-06-2025 Resolved: 894323-26-6888WzdojxoeIgvpv aftercare (20 sources)Long-term current use of insulin; Translations: [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]Onset: 01-03-2024 Resolved: 716644-02-2961KnjhjxfkUhkdy aftercare (18 sources)Long-term current use of systemic steroid; Translations: [MCC (current) use of systemic steroids]Onset: 01-03-2024 Resolved: 805044-71-5382KuzyorjxEdzym aftercare (17 sources)Long-term current use of inhaled steroid; Translations: [MCC (current) use of inhaled steroids]Onset: 03-06-2025 Resolved: 048067-18-3549XqsibsweBdskm bone disease and musculoskeletal deformities (3 sources)Disorder of bone; Translations: [Other specified disorders of bone density and structure, multiple sites]Onset: 06-15-2024 Resolved: 210085-11-3865LtualgegBtwpx connective tissue disease (4 sources)Cramp and spasm; Translations: [CRAMP AND SPASM]Onset: 08-31-2022 EpisodicOther connective tissue disease (20 sources)Recurrent falls ; Translations: [Repeated falls]Onset: 01-03-2024 Resolved: 908460-32-8628VnnzrcnfMswie connective tissue disease (17 sources)Cramp in lower limb; Translations: [Cramp and spasm]Onset: 03-06-2025 Resolved: 068337-67-6313QessyetlJwsoj gastrointestinal disorders (17 sources)Constipation; Translations: [Constipation, unspecified]Onset: 03-06-2025 Resolved: 408069-43-0486HeamhkauDpzcf gastrointestinal disorders (17 sources)Heartburn; Translations: [Heartburn]Onset: 03-06-2025 Resolved: 655945-32-7374XqhhplweXiknf gastrointestinal disorders (17 sources)Personal history of other diseases of the digestive system; Translations: [Personal history of other diseases of digestive system]Onset: 03-06-2025 Resolved: 749233-79-8552XfdtwiiuXqdji injuries and conditions due to external causes (3 sources)History of fall; Translations: [History of falling]Onset: 06-22-2024 Resolved: 286093-78-0246IefipdwzVaaep lower respiratory disease (17 sources)Cough; Translations: [Cough]Onset: 03-06-2025 Resolved: 250097-62-8727RbspvvfaDhdqu lower respiratory disease (3 sources)Parietoalveolar pneumopathy; Translations: [Other alveolar and parieto-alveolar conditions]Onset: 09-27-2025 Resolved: 170127-74-0373FfbzcapxFoznp nervous system disorders (17 sources)Left-sided piriformis syndrome; Translations: [Lesion of sciatic nerve, left lower limb]Onset: 03-06-2025 Resolved: 653996-28-1554LmuwzxsRpyhu non-traumatic joint disorders (17 sources)Pain in right shoulder; Translations: [Pain in joint, shoulder region]Onset: 03-06-2025 Resolved: 660971-05-7208FufuqjsoXtudn nutritional; endocrine; and metabolic disorders (19 sources)Body mass index 25-29 - overweight; Translations: [Overweight]Onset: 03-06-2025 Resolved: 702241-70-8190LsbgrtboFgnpk nutritional; endocrine; and metabolic disorders (19 sources)Overweight in adulthood with body mass index of 25 or more but less than 30; Translations: [Body mass index (BMI) 26.0-26.9, adult]Onset: 03-06-2025 Resolved: 164763-92-9878QnxondkbRhoyl screening for suspected conditions (not mental disorders or infectious disease) (20 sources)Encounter for screening mammogram for malignant neoplasm of breast; Translations: [Other abnormal and inconclusive findings on diagnostic imaging of breast]Onset: 04-24-2022 Resolved: 11-94-3036DaznysikCaqiw upper respiratory disease (17 sources)Seasonal allergy; Translations: [Other seasonal allergic rhinitis] Onset: 03-06-2025 Resolved: 180951-98-2718DxxghwfMcysimirwe and visceral atherosclerosis (20 sources)Peripheral vascular disease; Translations: [Abdominal aortic atherosclerosis]Onset: 03-06-2025 Resolved: 737661-85-4623UxsjbpxOjdgtkfj codes; unclassified (20 sources)Pitting edema; Translations: [Edema, unspecified]Onset: 03-06-2025 Resolved: 271285-11-3515DvlgfbpiZxpcqjoy codes; unclassified (20 sources)Altered mental status; Translations: [Altered mental status, unspecified]Onset: 14-03-9681SkzqrmehRrvaqeu detachments; defects; vascular occlusion; and retinopathy (20 sources)Nonexudative age-related macular degeneration; Translations: [Nonexudative age-related macular degeneration, unspecified eye, stage unspecified]Onset: 01-03-2024 Resolved: 025514-04-3437KdhobhlLoezamf on above:noted in 05/03/2023 Diabetic Eye Exam page 3. added per OP CDI policy.Screening and history of mental health and substance abuse codes (20 sources)Ex-smoker; Translations: [Personal history of nicotine dependence] Onset: 01-03-2024 Resolved: 549287-48-7138EfwmdscmOigjikffgnm; intervertebral disc disorders; other back problems (17 sources)Arthritis of spine; Translations: [Spondylosis, unspecified]Onset: 03-06-2025 Resolved: 854125-53-3476VnmioguEovmltkgdgm; intervertebral disc disorders; other back problems (17 sources)Backache; Translations: [Dorsalgia, unspecified]Onset: 03-06-2025 Resolved: 735432-55-0314EoddkzvqUkttrrqsejuf (20 sources)PregnancyOnset: 03-01-1958 Resolved: 261313-43-7573Uagkpowopnsq (1 source)COUGH, UNSPECIFIED; Translations: [COUGH, UNSPECIFIED]Onset: 03-22-2023 Results Test NameValueInterpretationReference RangeFacilityED Pat Eduon 07-87-0013WU [facility] Diabetes Mellitus and Nutrition, Adult When you have diabetes, or diabetes mellitus, it is very important to have healthy eating habits because your blood sugar (glucose) levels are greatly affected by what you eat and drink. Eating healthy foods in the right amounts, at about the same times every day, can help you: ??? Manage your blood glucose. ??? Lower your risk of heart disease. ??? Improve your blood pressure. ??? Reach or maintain a healthy weight. What can affect my meal plan? Every person with diabetes is different, and each person has different needs for a meal plan. Your health care provider may recommend that you work with a dietitian to make a meal plan that is best for you. Your meal plan may vary depending on factors such as: ??? The calories you need. ??? The medicines you take. ??? Your weight. ??? Your blood glucose, blood pressure, and cholesterol levels. ??? Your activity level. ??? Other health conditions you have, such as heart or kidney disease. How do carbohydrates affect me? Carbohydrates, also called carbs, affect your blood glucose level more than any other type of food.Eating carbs raises the amount of glucose in your blood. It is important to know how many carbs you can safely have in each meal. This is different for every person. Your dietitian can help you calculate how many carbs you should have at each meal and for each snack. How does alcohol affect me? Alcohol can cause a decrease in blood glucose (hypoglycemia), especially if you use insulin or takecertain diabetes medicines by mouth. Hypoglycemia can be a life-threatening condition. Symptoms of hypoglycemia, such as sleepiness, dizziness, and confusion, are similar to symptoms of having too much alcohol. ??? Do not drink alcohol if: ? Your health care provider tells you not to drink. ? You are , may be , or are planning to become . ??? If you drink alcohol: ? Limit how much you have to: ? 0?1 drink a day for women. ? 0?2 drinks a day for men. ? Know how much alcohol is in your drink. In the [place] one drink equals one 12 oz bottle of beer (355 mL), one 5 oz glass of wine (148 mL), or one 1? oz glass of hard liquor (44 mL). ? Keep yourself hydrated with water, diet soda, or unsweetened iced tea. Keep in mind that regular soda, juice, and other mixers may contain a lot of sugar and must be counted as carbs. What are tips for following this plan? Reading food labels ??? Start by checking the serving size on the Nutrition Facts label of packaged foods and drinks. The number of calories and the amount of carbs, fats, and other nutrients listed on the label are based on one serving of the item. Many items contain more than one serving per package. ??? Check the total grams (g) of carbs in one serving. ??? Check the number of grams of saturated fats and trans fats in one serving. Choose foods that have a low amount or none of these fats. ??? Check the number of milligrams (mg) of salt (sodium) in one serving. Most people should limit total sodium intake to less than 2,300 mg per day. ??? Always check the nutrition information of foods labeled as low-fat or nonfat. These foods may be higher in added sugar or refined carbs and should be avoided. ??? Talk to your dietitian to identify your daily goals for nutrients listed on the label. Shopping ??? Avoid buying canned, pre-made, or processed foods. These foods tend to be high in fat, sodium, and added sugar. ??? Shop around the outside edge of the grocery store. This is where you will most often find freshfruits and vegetables, bulk grains, fresh meats, and fresh dairy products. Cooking ??? Use low-heat cooking methods, such as baking, instead of high-heat cooking methods, such as deep frying. ??? Cook using healthy oils, such as olive, canola, or sunflower oil. ??? Avoid cooking with butter, cream, or high-fat meats. Meal planning ??? Eat meals and snacks regularly, preferably at the same times every day. Avoid going long periods of time without eating. ??? Eat foods that are high in fiber, such as fresh fruits, vegetables, beans, and whole grains. ??? Eat 4?6 oz (112?168 g) of lean protein each day, such as lean meat, chicken, fish, eggs, or tofu. One ounce (oz) (28 g) of lean protein is equal to: ? 1 oz (28 g) of meat, chicken, or fish. ? 1 egg. ? ? cup (62 g) of tofu. ??? Eat some foods each day that contain healthy fats, such as avocado, nuts, seeds, and fish. What foods should I eat? Fruits Berries. Apples. Oranges. Peaches. Apricots. Plums. Grapes. Mangoes. Papayas. Pomegranates. Kiwi. Cherries. Vegetables Leafy greens, including lettuce, spinach, kale, chard, madhavi greens, mustard greens, and cabbage.Beets. Cauliflower. Broccoli. Carrots. Green beans. Tomatoes. Peppers. Onions. Cucumbers. [place] sprouts. 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 Reason: Disease management Case Type: Chronic Care Management Risk Score: -- Case Status: Active (November 02, 2023) Date Assigned: October 28, 2023 Assigned By: Ambrocio Gustafson Date Enrolled: November 02, 2023 Assigned Primary Personnel: Ambrocio Gustafson Assigned Secondary Personnel: -- Case Physician: Natacha Oneill MD Problems Ongoing Anxiety Atherosclerosis of abdominal aorta Bronchiectasis, uncomplicated Centrilobular emphysema Cough Dizziness 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 Former smoker GERD (gastroesophageal reflux disease) History of small bowel obstruction HLD (hyperlipidemia) HTN (hypertension) Hyponatremia Hypovitaminosis D Interstitial lung disease 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 Home Medications aspirin 81 mg oral capsule, Oral, q24hr atorvastatin 10 mg Tab, See Instructions, 3 refills BD UF Xiao pen needle 4mm x32G, See Instructions, 3 refills BLOOD GLUCOSE METER TEST STRIPS, See Instructions, 11 refills Centrum Silver, See Instructions Ffreestyle eduar 3+ reader, See Instructions gabapentin, 100 mg, Oral, Bedtime Glucose Kit, See Instructions Gvoke HypoPen 1 mg/0.2 mL subcutaneous solution HumaLOG KwikPen 100 units/mL injectable solution, See Instructions ibandronate 150 mg oral tablet, See Instructions LANCETS OF CHOICE OR SPECIFIED BY INSURANCE., See Instructions, 11 refills Lantus Solostar Pen 100 units/mL subcutaneous solution, See Instructions, 1 refills Eduar 3, See Instructions losartan 50 mg Tab, See Instructions, 3 refills omeprazole, 1 tab, Oral, BID Pen [place], See Instructions, 3 refills PreserVision AREDS, 2 tablets daily, Oral, Daily ProAir RespiClick 90 mcg/inh inhalation powder, 2 puff(s), Inhalation, q4hr, PRN, 11 refills propranolol 60 mg oral tablet, See Instructions Sensors freestyle eduar 3+, See Instructions, 1 refills tizanidine, 4 mg, Oral, Bedtime traZODONE 50 mg Tab, See Instructions, 1 refills Zyrtec, 1, Oral, Daily Allergies aminolevulinic acid (AOF) nitroglycerin (Unknown) Social History Alcohol - Denies Alcohol Use, 04/18/2020 Never, 08/16/2025 Substance Abuse - Denies Substance Abuse, 04/18/2020 Never, 08/16/2025 Tobacco - Denies Tobacco Use, 04/18/2020 Former smoker, quit more than 30 days ago Tobacco Use:. Never Smokeless Tobacco Use:. Cigarettes, Household tobacco concerns: No. Yes, 08/16/2025 Family History Acute myocardial infarction: Sister. Diabetes mellitus type 2: Mother, Father and Sister. Hypothyroidism: Sister. Primary malignant neoplasm of lung: Father. Screenings and Assessments 11/02/23 12:16:00 Result Name Value Comment Phone Call Monitoring Consent Agreed to continue call Phone Verification Patient Information Full name, street address and date of verified CM Program Enrollment Provides verbal consent for enrollment CCM Program Enrollment Verbally agreed to receive CCM services CCM Written Consent Written consent obtained CCM Verbal Consent By Self 11/02/23 10:00:00 Result Name Value Comment HIPPA Verified Type of Contact Telephone Information Given by Self CM Preferred Spoken Language Moldovan CM Preferred Written Language Pakistani Preferred Communication Mode Verbal Ability to Read/Write Able to read, Able to write Preferred Salutation Brand Ambassador Called No Preferred Method of Contact Home Best Time to Visit or Contact No preference Best Day to Visit or Contact No preference Appointment Reminders Phone Preferred Way to Send PHI Patient portal Preferred Mailing Address [address] [place] [id number] Learning Style Pref Patient Verbal explanation Barriers to Learning None evident Cognitive Deficit No Response to Current Year Correct Response to Current Month Correct Response to Current Time Correct (more content not included)...[facility]/Cl[facility] Noteon [id number] Medicine Office/Cl[facility] NoteFab[facility] Office/Clinic Note Chief Complaint Subsequent Medicare Wellness Review of Systems PHQ Score Initial Depression Screen Score: 0 SCORE Physical Exam Vitals & Measurements HR: 68(Peripheral) RR: 16 BP: 130/70 SpO2: 94% HT: 60 in HT: 152 cm WT: 141.382 lb WT: 64.13 kg BMI: 27.76 Procedure I was in the office and available for consultation and to provide direct supervision at the time ofthis visit. I have provided supervision of the care team and have reviewed this chart and office note and agree with the plan of care. Assessment/Plan 1. Encounter for subsequent annual wellness visit (AWV) in Medicare patient (Z00.00: Encounter for general adult medical examination without abnormal findings) The patient was given a customized and personalized print out of all the current AHRQ USPSTF???s recommendations for preventative services and all current CDC recommended immunizations, relevant riskrecommendations and the following patient brochures were given. Reviewed Medicare Prevention Services checklist. CDC-Falls Prevention and home safety screening reviewed. Patient denies any falls in last 12 months, voices no worry about falling. Exhibits no problems with sitting, standing or ambulation. Patient aware with keeping walk way area free of clutter to prevent tripping and/or falling. [place] Advance Directives reviewed. Patient has documents at home, but has not filled them out. Patient encouraged to bring into office once they have been completed. Patient is not an organ donor. Patient denies any problems with ADL???s and Instrumental ADL???s. Cognitive screening completed with memory and clock face drawing. Patient did not fill out the clock face correctly, but did recite 3/3 memory words. Immunization record reviewed. 2 COVID vaccines have been administered, with (3) Boosters received. Allergies and medications reviewed and up to date. No concerns with taking medication as prescribed. Reviewed OTC medications, medication list up to date. Blood tests were reviewed: Discussed what tests need to be updated. Patient would like to wait to do any testing until she sees the new doctor. No concerns with bowel/ bladder. Colonoscopy screenings no longer done due to age. Last mammogram (03/13/2024). Last DEXA Scan (02/05/2020). Patient defers any testing until she seesthe new doctor. Reviewed pain symptoms: rates pain as a (0) out of 10. Reviewed all outside providers that patient follows. Last visit summary notes available in chart and/or have been requested. Follow up scheduled with PCP, 09/18/[address] Adan AWV has been scheduled, 08/21/2026 Medicare provides yearly screening for alcohol and depression concerns. This is completed during our Medicare Wellness Visit for those who do not have a current diagnosis of depression or concerns with alcohol use. I spent a total of 12 minutes on this date of service which included preparing to see the patient, face to face patient care, completing clinical documentation, obtaining and/or reviewing separately obtained history, counseling, and educating the patient with handouts. Explanations were provided with reviewing questionnaires. AUDIT risk assessment screening completed, risk score (0) with patient denying concerns with use. Completed PHQ-2 risk assessment for depression with risk sc ore (6), negative findings. Patient has been reminded to notify the provider if there would be a change or concerns with symptoms with fear, unable to sleep, worrying too much, or feeling down and/orsad with lost of interest with daily activities. Will continue to monitor with screening yearly during Medicare Wellness Visits. 2. Bronchiectasis, uncomplicated (J47.9: Bronchiectasis, uncomplicated) Patient takes medications as prescribed. Patient follows Dr. Fitzgerald, Pulmonology as directed. 3. Centrilobular emphysema (J43.2: Centrilobular emphysema) See #2. 4. Type 2 diabetes mellitus with hyperlipidemia (E11.69: Type 2 diabetes mellitus with other specified complication) Patient is compliant on current DM medications. Patient does monitors BS at home: DM stoplight handout reviewed with s/s to monitor for and report to PCP. Discussed ADA dietary recommendations with low carbs and reduce sugar intake. Patient encouraged to increase daily physical activity, adequate water intake and maintain a healthy weight. Pt follows up with PCP with yearly DM foot checks, due. Reminded patient to perform at home foot checks to prevent future complications, wash with soap and water, apply lotion to bilateral feet and in- between toes to prevent dryness and/or cracking. Wear proper fitting shoes and loose fitting socks and/or hose. Follows up with yearly DM eye exams, last visit notes available in chart for review. Reviewed healthy lifestyle with low fat diet and exercise regimen. When you are overweight our bodyproduces more lipids. Risk also increases with family history of hyperlipidemia and with monitoringalcohol use and a (more content not included)...[facility] HospitalComment on above:Result Comment: Electronically Signed By: MAYRA LARSON CNP\.br\Date and Time Signed: 08/17/25 08:06 EDT\.br\Electronically Co-Signed By: Daina Peñaloza\.br\Date and Time Co-Signed: 08/16/25 14:43EDTAmbulatory Visit Summaryon [id number] Visit SummaryAmbulatory Visit Summary CHARITYMICHELLE :1940 Visit Date:08/16/2025 Ambulatory Visit Instructions Your Diagnosis Encounter for subsequent annual wellness visit (AWV) in Medicare patient Bronchiectasis, uncomplicated Centrilobular emphysema 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 mellitus with peripheral vascular disease Long-term insulin use Interstitial lung disease HLD (hyperlipidemia) HTN (hypertension) Major depressive disorder, recurrent, in full remission GERD (gastroesophageal reflux disease) Overweight with body mass index (BMI) of 27 to 27.9 in adult These Are Your Goals Type II Diabetes Mellitus- prevent complications and improve A1c Interventions: Keep follow up appoinamnts as scheduled - Progressing complete labs as directed including; FBS, A1c, BMP - Progressing improve dietary habits by reducing refined sugar intake - Progressing review educational material - Done take medications as prescribed - Progressing maintain therapeutic BP and prevent complications Interventions: get adequate sleep each night, 6-8 hours - Progressing keep follow up appointments as scheduled - Progressing maintain a heart healthy diet with less salt - Progressing monitor BP on a regualr basis - Progressing review educational material take medications as prescribed - Progressing Your Care Team Attending Physician - Binta Hutton Primary Care Physician - Natacha Oneill MD This Is Your Medications List Misc Prescription (BD UF Xiao pen needle 4mm x32G) Misc Prescription (BLOOD GLUCOSE METER TEST STRIPS) Misc Prescription (Ffreestyle eduar 3+ reader) Misc Prescription (Freestyle Eduar 2 sensor) Misc Prescription (Glucose Kit) Misc Prescription (LANCETS OF CHOICE OR SPECIFIED BY INSURANCE.) Misc Prescription (Pen [place]) Misc Prescription (Sensors freestyle eduar 3+) Non-Formulary Medication (Eduar 3) albuterol (ProAir RespiClick 90 mcg/inh inhalation powder) aspirin (aspirin 81 mg oral capsule) atorvastatin (atorvastatin 10 mg Tab) cetirizine (Zyrtec) cholecalciferol (Vitamin D3) gabapentin glucagon (Gvoke HypoPen 1 mg/0.2 mL subcutaneous solution) ibandronate (ibandronate 150 mg oral tablet) insulin glargine (Lantus Solostar Pen 100 units/mL subcutaneous solution) insulin lispro (HumaLOG KwikPen 100 units/mL injectable solution) losartan (losartan 50 mg Tab) multivitamin with minerals (Centrum Silver) multivitamin with minerals (PreserVision AREDS) omeprazole propranolol (propranolol 60 mg oral tablet) tizanidine trazodone (traZODONE 50 mg Tab) Procedures Performed Bladder (07/30/2019), Cataract (11/29/2016), Lower back (surface region) (11/29/1989), Colpocleisis, [place]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 Discharge Vitals Heart Rate (Peripheral) 68 Respiratory Rate 16 Blood Pressure 130/70 Height 152 cm Height 60 in Weight 64.13 kg Weight 141.382 lb BMI 27.76 What to do next Scheduled Follow-Up Appointments Wednesday 11:20 AM EDT With: Elijah Adan DO Where: [address] [id number] 1:00 PM EDT With: Where: [address] [place] [address]- Medications What How Much When Why Instructions Unchanged albuterol (ProAir RespiClick 90 mcg/ inh inhalation powder) 2 Puffs Inhalation Every 4 hours as needed for for wheezing or SOB BMI 25.0-25.9,adult Overweight Former smoker Other skin changes Cough, unspecified Or cheapest alternative Unchanged aspirin (aspirin 81 mg oral capsule) By Mouth Every 24 hours Unchanged atorvastatin (atorvastatin 10 mg Tab) See instructions TAKE 1 TABLET BY MOUTH AT BEDTIME Unchanged cetirizine (Zyrtec) 1 By Mouth Every day Unchanged cholecalciferol (Vitamin D3) 25 Microgram By Mouth Every day take 3 caps daily Unchanged gabapentin 100 Milligram By Mouth At bedtime PROVIDED BY PULMONARY FOR COUGH Unchanged glucagon (Gvoke HypoPen 1 mg/ 0.2 mL subcutaneous solution) INJECT 1MG SUBCUTANEOUSLY ONETIME Unchanged ibandronate (ibandronate 150 mg oral tablet) See instructions SWALLOW 1 TAB EVERY MONTH W/ 6-8 OZ OF WATER 1HR BEFORE 1ST FOOD, DRINK, MED, DO NOT LIE DOWN FOR 1 HR & UNTIL AFTER 1ST FOOD Unchanged insulin glargine (Lantus Solostar Pen 100 units/ mL subcutaneous solution) See instructions INJECT 10 UNITS SUBCUATANEOUSLY TWICE A DAY Unchanged insulin lispro (HumaLOG KwikPen 100 units/ mL injectable solution) See instructions TID AC MEALS 150-200 2U, 201-250 4U, 251-300 6U, 301-350 8U,351-400 10U, > 401 12U AND CALL PCP Unchanged losartan (losartan 50 mg Tab) See instructions TAKE 1 TABLET BY MOUTH DAILY Unchanged Misc Prescription (BD UF Xiao pen needle 4mm x32G) See instructions Use one pen needle with each administration of lantus (more content not included)...[facility] HospitalGlucose (Bld) [Mass/Vol]Ordered By: Jamia Cole on [id number] Blood, WFM325 mg/dLNONM HealthcareLaboratory - Hematology and Cell countson [id number] (Bld) [Mass fraction]8.1 %[facility] HealthcareNo Panel InformationOrdered By: Jamia Cole on [id number] HealthcarePopulation Healthon [id number] Summit State Hospital Case Information Case Priority: None Programs: -- 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 Referral Reason: Disease management Case Type: Chronic Care Management Risk Score: -- Case Status: Active (November 02, 2023) Date Assigned: October 28, 2023 Assigned By: Ambrocio Gustafson Date Enrolled: November 02, 2023 Assigned Primary Personnel: Ambrocio Gustafson Assigned Secondary Personnel: -- Case Physician: Natacha Oneill MD Ongoing Anxiety Atherosclerosis of abdominal aorta BMI 26.0-26.9,adult Bronchiectasis, uncomplicated Centrilobular emphysema Cough Dizziness 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 Former smoker GERD (gastroesophageal reflux disease) History of small bowel obstruction HLD (hyperlipidemia) HTN (hypertension) Hyponatremia Hypovitaminosis D Interstitial lung disease MCC (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 Home Medications atorvastatin 10 mg Tab, See Instructions BD UF Xiao pen needle 4mm x32G, See Instructions, 3 refills BLOOD GLUCOSE METER TEST STRIPS, See Instructions, 11 refills Ffreestyle eduar 3+ reader, See Instructions Freestyle Eduar 2 sensor, See Instructions, 3 refills gabapentin, 100 mg, Oral, Bedtime Glucose Kit, See Instructions Gvoke HypoPen 1 mg/0.2 mL subcutaneous solution HumaLOG KwikPen 100 units/mL injectable solution, See Instructions ibandronate 150 mg oral tablet, See Instructions LANCETS OF CHOICE OR SPECIFIED BY INSURANCE., See Instructions, 11 refills Lantus Solostar Pen 100 units/mL subcutaneous solution, See Instructions Eduar 3, See Instructions losartan 50 mg Tab, See Instructions, 3 refills omeprazole, 1 tab, Oral, BID Pen [place], See Instructions, 3 refills PreserVision AREDS, 2 tablets daily, Oral, Daily ProAir RespiClick 90 mcg/inh inhalation powder, 2 puff(s), Inhalation, q4hr, PRN, 11 refills propranolol 60 mg oral tablet, See Instructions Sensors freestyle eduar 3+, See Instructions, 1 refills tizanidine, 4 mg, Oral, Bedtime traZODONE 50 mg Tab, See Instructions Vitamin D3, 25 mcg, Oral, Daily Zyrtec, 1, Oral, Daily Allergies aminolevulinic acid (AOF) nitroglycerin (Unknown) Social History Alcohol - Denies Alcohol Use, 04/18/2020 Never., 10/02/2024 Substance Abuse - Denies Substance Abuse, 04/18/2020 Never., 10/02/2024 Tobacco - Denies Tobacco Use, 04/18/2020 Former smoker, quit more than 30 days ago Tobacco Use:. Never Smokeless Tobacco Use:. Cigarettes, Household tobacco concerns: No. Yes, 05/14/2025 Family History Acute myocardial infarction: Sister. Diabetes mellitus type 2: Mother, Father and Sister. Hypothyroidism: Sister. Primary malignant neoplasm of lung: Father. Screenings and Assessments 11/02/23 12:16:00 Result Name Value Comment Phone Call Monitoring Consent Agreed to continue call Phone Verification Patient Information Full name, street address and date of verified Program Enrollment Provides verbal consent for enrollment [facility] Program Enrollment Verbally agreed to receive [facility] services [facility] Written Consent Written consent obtained CCM Verbal Consent By Self 11/02/23 10:00:00 Result Name Value Comment HIPPA Verified Type of Contact Telephone Information Given by Self Preferred Spoken Language Moldovan Preferred Written Language Pakistani Preferred Communication Mode Verbal Ability to Read/Write Able to read, Able to write Preferred Salutation MrsJabari Brand Ambassador Called No Preferred Method of Contact Home Best Time to Visit or Contact No preference Best Day to Visit or Contact No preference Appointment Reminders Phone Preferred Way to Send PHI Patient portal Preferred Mailing Address [address] [place] [id number] Learning Style Pref Patient Verbal explanation Barriers to Learning None evident Cognitive Deficit No Response to Current Year Correct Response to Current Month Correct Response to Current Time Correct (more content not included)...[facility] HospitalAmbulatory Visit Summaryon [id number] Visit SummaryAmbulatory Visit Summary MICHELLE NASH :1940 Visit Date:05/14/2025 Ambulatory Visit Instructions Your Diagnosis Hypovitaminosis D Hyponatremia Non-smoker BMI 27.0-27.9,adult Interstitial pulmonary disease, unspecified Pain in arm, unspecified Impacted cerumen, unspecified ear Type 2 diabetes mellitus with hyperlipidemia Hyperlipidemia, unspecified These Are Your Goals Type II Diabetes Mellitus- prevent complications and improve A1c Interventions: Keep follow up appoinamnts as scheduled - Progressing complete labs as directed including; FBS, A1c, BMP - Progressing improve dietary habits by reducing refined sugar intake - Progressing review educational material - Done take medications as prescribed - Progressing maintain therapeutic BP and prevent complications Interventions: get adequate sleep each night, 6-8 hours - Progressing keep follow up appointments as scheduled - Progressing maintain a heart healthy diet with less salt - Progressing monitor BP on a regualr basis - Progressing review educational material take medications as prescribed - Progressing Your Care Team Attending Physician - Natacha Oneill MD Primary Care Physician - Natacha Oneill MD This Is Your Medications List Contact prescribing physician if questions or concerns Misc Prescription (BD UF Xiao pen needle 4mm x32G) Misc Prescription (BLOOD GLUCOSE METER TEST STRIPS) Misc Prescription (Freestyle Eduar 2 Flash Glucose Monitoring 14 Day System ([place])) Misc Prescription (Freestyle Eduar 2 Flash Glucose Monitoring 14 Day System (Sensor)) Misc Prescription (Freestyle Eduar 2 sensor) Misc Prescription (Glucose Kit) Misc Prescription (LANCETS OF CHOICE OR SPECIFIED BY INSURANCE.) Misc Prescription (Pen [place]) albuterol (ProAir RespiClick 90 mcg/inh inhalation powder) atorvastatin (atorvastatin 10 mg Tab) cetirizine (Zyrtec) cholecalciferol (Vitamin D3) glucagon (Gvoke HypoPen 1 mg/0.2 mL subcutaneous solution) ibandronate (ibandronate 150 mg oral tablet) insulin glargine (Lantus Solostar Pen 100 units/mL subcutaneous solution) insulin lispro (HumaLOG KwikPen 100 units/mL injectable solution) losartan (losartan 50 mg Tab) multivitamin with minerals (PreserVision AREDS) omeprazole propranolol (propranolol 60 mg oral tablet) tizanidine trazodone (traZODONE 50 mg Tab) [Image Removed: STOP]Stop taking these medications omeprazole (omeprazole 20 mg Cap-DR) Procedures Performed Bladder (07/30/2019), Cataract (11/29/2016), Lower back (surface region) (11/29/1989), Colpocleisis, [place]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 Discharge Vitals Heart Rate (Peripheral) 54 Blood Pressure 126/74 Height 152 cm Height 60 in Weight 62.7 kg Weight 138.23 lb BMI 27.14 What to do next Scheduled Follow-Up Appointments Wednesday 11:00 AM EDT Where: [facility] [place] [id number]- Medications What How Much When Why Instructions Unchanged albuterol (ProAir RespiClick 90 mcg/ inh inhalation powder) 2 Puffs Inhalation Every 4 hours as needed for for wheezing or SOB BMI 25.0-25.9,adult Overweight Former smoker Other skin changes Cough, unspecified Or cheapest alternative Contact prescribing physician if questions or concerns Unchanged atorvastatin (atorvastatin 10 mg Tab) See instructions TAKE 1 TABLET BY MOUTH AT BEDTIME Contact prescribing physician if questions or concerns Unchanged cetirizine (Zyrtec) 1 By Mouth Every day Contact prescribing physician if questions or concerns Unchanged cholecalciferol (Vitamin D3) 25 Microgram By Mouth Every day take 3 caps daily Contact prescribing physician if questions or concerns Unchanged glucagon (Gvoke HypoPen 1 mg/ 0.2 mL subcutaneous solution) INJECT 1MG SUBCUTANEOUSLY ONETIME Contact prescribing physician if questions or concerns Unchanged ibandronate (ibandronate 150 mg oral tablet) See instructions SWALLOW 1 TAB EVERY MONTH W/ 6-8 OZ OF WATER 1HR BEFORE 1ST FOOD, DRINK, MED, DO NOT LIE DOWN FOR 1 HR & UNTIL AFTER 1ST FOOD Contact prescribing physician if questions or concerns Unchanged insulin glargine (Lantus Solostar Pen 100 units/ mL subcutaneous solution) See instructions INJECT 10 UNITS SUBCUATANEOUSLY TWICE A DAY Contact prescribing physician if questions or concerns Unchanged insulin lispro (HumaLOG KwikPen 100 units/ mL injectable solution) See instructions TID AC MEALS 150-200 2U, 201-250 4U, 251-300 6U, 301-350 8U,351-400 10U, > 401 12U AND CALL PCP Contact prescribing physician if questions or concerns Unchanged losartan (losartan 50 mg Tab) See instructions TAKE 1 TABLET BY MOUTH DAILY Contact prescribing physician if questions or concerns Unchanged Misc Prescription (BD UF Xiao pen needle 4mm x32G) See instructions Use one pen needle with each administration of lantus BID and humalog TID. Dx E11.9 Contac (more content not included)...[facility] Medicine Office/Clinic Noteon [id number] Medicine Office/Clinic NoteFaboston regional medical center Medicine Office/Clinic Note Chief Complaint 3 month f/u The patient presents with concerns regarding idiopathic pulmonary fibrosis and arm pain. HPI Staff Patient presents for 3 month f/u on meds. Patient is here for follow up on Diabetes. How often are you checking your blood sugars? _ times per day What are your average readings? _ Paresthesias, Ulcerations or sores? no Lisinopril, aspirin, statin therapy? Yes Last A1c: Hgb A1C %: 7 % High (08/14/24 09:29:00) Hgb A1c POC: 7.3 % High (02/13/25 11:10:00) Patient is here for follow up on hypertension. How often are you checking your blood pressure? _ What are your average readings? _ Yearly BMP: _ History of Present Illness - The patient is an 84-year-old female presenting with idiopathic pulmonary fibrosis and arm pain. - Idiopathic pulmonary fibrosis: Diagnosed with idiopathic pulmonary fibrosis, causing respiratory issues due to lung tissue thickening. - The condition is idiopathic, with no known cause, and can worsen over time. - Arm pain: Reports pain in the arm, likely due to arthritis, exacerbated by lying on the arm. - Preventative care: Discussed vaccinations for COVID-19, shingles, and RSV due to lung concerns. - Weight concerns: Currently stable at 138 pounds. - Ear wax accumulation: Treatment with Debrox recommended. - Vaccinations discussed: COVID-19, shingles, and RSV due to lung concerns. - Weight management: Patient's weight is stable at 138 pounds, previously a concern for being underweight. Review of Systems PHQ Score Initial Depression Screen Score: 0 SCORE Physical Exam Vitals & Measurements HR: 54(Peripheral) BP: 126/74 SpO2: 97% HT: 60 in HT: 152 cm WT: 138.23 lb WT: 62.7 kg BMI: 27.14 General: alert, no acute distress ENMT: oral mucosa moist, wax in ears, recommend Debrox for earwax removal Cardiovascular: Regular rate and rhythm, normal peripheral perfusion Respiratory: Lungs with crackles at bases, respirations non labored Extremities: no deformity, no trauma, arthritis in arm, recommend physical therapy Neurological: oriented x 4, level of consciousness appropriate for age, CN II- XII intact, motor strength equal & normal bilaterally, speech normal Abdomen: Soft, Non-tender, Non-distended, + Bowel sounds Assessment/Plan 1. Hypovitaminosis D (E55.9: Vitamin D deficiency, unspecified) - Will check at next yearly labs. Ordered: 1126F Pain severity quantified; no pain present Current tobacco non-user 1036F Medication list documented in medical record 1159F Most recent diastolic blood pressure <80 mm Hg 3078F Physical Therapy Evaluation - External Facility Systolic BP <130 mm Hg (Most Recent) 3074F 2. Hyponatremia (E87.1: Hypo-osmolality and hyponatremia) Resolved Ordered: Physical Therapy Evaluation - External Facility 3. Non-smoker (Z78.9: Other specified health status) - Please continue to not smoke. Ordered: Physical Therapy Evaluation - External Facility 4. BMI 27.0-27.9,adult (Z68.27: Body mass index [BMI] 27.0-27.9, adult) - BMI education added. Ordered: Physical Therapy Evaluation - External Facility 5. Interstitial pulmonary disease, unspecified (J84.9) - Continue monitoring respiratory status and manage symptoms as needed. - Discussed the idiopathic nature of the condition and the lack of specific treatment to halt progression. Ordered: Physical Therapy Evaluation - External Facility 6. Pain in arm, unspecified (M79.603) - Physical therapy recommended to improve mobility and reduce pain. 7. Impacted cerumen, unspecified ear (H61.20) - Debrox recommended for ear wax removal. - Freestyle Eduar 3 sensor ordered for blood glucose monitoring. - Debrox recommended for ear wax removal. - 84-year-old female with idiopathic pulmonary fibrosis presenting with respiratory issues due to lung tissue thickening. - The condition is idiopathic, with no known cause, and can worsen over time. - Arm pain likely due to arthritis, exacerbated by lying on the arm, requiring physical therapy. - Preventative care includes vaccinations for COVID-19, shingles, and RSV due to lung concerns. - Weight is stable at 138 pounds, previously a concern for being underweight. - Ear wax accumulation addressed with Debrox recommendation. Preventative Care - Vaccinations for COVID-19, shingles, and RSV discussed due to lung concerns. During the visit, we discussed the management of idiopathic pulmonary fibrosis, emphasizing the idiopathic nature of the condition and the lack of specific treatment options. We also addressed the patient's arm pain, likely due to arthritis, and recommended physical therapy to improve mobility. Preventative care measures, including vaccinations for COVID-19, shingles, and RSV, were discussed due to the patient's lung concerns. Additionally, we recommended Debrox for ear wax removal. - Continue using Debrox for ear wax removal as directed. - Atten (more content not included)...[facility] HospitalComment on above:Result Comment: Electronically Signed By: Natacha Oneill MD\.br\Date and Time Signed: 05/14/25 11:33 EDTGlucose (Bld) [Mass/Vol]Ordered By: Jamia Cole on [id number] Blood, FPC493 mg/dLUTAH VALLEY HOSPITAL HealthcareLaboratory - Hematology and Cell countson [id number] (Bld) [Mass fraction]7.7 %[facility] HospitalNo Panel InformationOrdered By: Jamia Cole on [id number] HealthcarePopulation Healthon [id number] HealthPopchristianacare Health Case Information Case Priority: None Programs: -- 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 Referral Reason: Disease management Case Type: Chronic Care Management Risk Score: -- Case Status: Active (November 02, 2023) Date Assigned: October 28, 2023 Assigned By: Ambrocio Gustafson Date Enrolled: November 02, 2023 Assigned Primary Personnel: Ambrocio Gustafson Assigned Secondary Personnel: -- Case Physician: Natacha Oneill MD Problems Ongoing Anxiety Atherosclerosis of abdominal aorta BMI 26.0-26.9,adult Bronchiectasis, uncomplicated Centrilobular emphysema Cough Dizziness 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 Former smoker GERD (gastroesophageal reflux disease) History of small bowel obstruction HLD (hyperlipidemia) HTN (hypertension) Hyponatremia Hypovitaminosis D Interstitial lung disease MCC (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 Home Medications atorvastatin 10 mg Tab, See Instructions, Unable to obtain: pt unsure of medications BD UF Xiao pen needle 4mm x32G, See Instructions, 3 refills, Unable to obtain: pt unsure of medications BLOOD GLUCOSE METER TEST STRIPS, See Instructions, 11 refills, Unable to obtain: pt unsure of medications Freestyle Eduar 2 Flash Glucose Monitoring 14 Day System ([place]), See Instructions, Unable to obtain: pt unsure of medications Freestyle Eduar 2 Flash Glucose Monitoring 14 Day System (S[place]), See Instructions, Unable to obtain: pt unsure of medications Freestyle Eduar 2 sensor, See Instructions, 3 refills, Unable to obtain: pt unsure of medications Glucose Kit, See Instructions, Unable to obtain: pt unsure of medications Gvoke HypoPen 1 mg/0.2 mL subcutaneous solution, Unable to obtain: pt unsure of medications HumaLOG KwikPen 100 units/mL injectable solution, See Instructions, Unable to obtain: pt unsure of medications ibandronate 150 mg oral tablet, 150 mg, Oral, qMonth LANCETS OF CHOICE OR SPECIFIED BY INSURANCE., See Instructions, 11 refills, Unable to obtain: ptunsure of medications Lantus Solostar Pen 100 units/mL subcutaneous solution, See Instructions, Unable to obtain: pt unsure of medications losartan 50 mg Tab, See Instructions, 3 refills, Unable to obtain: pt unsure of medications omeprazole 20 mg Cap-DR, See Instructions, Unable to obtain: pt unsure of medications [place], See Instructions, 3 refills, Unable to obtain: pt unsure of medications PreserVision AREDS, 2 tablets daily, Oral, Daily, Unable to obtain: pt unsure of medications ProAir RespiClick 90 mcg/inh inhalation powder, 2 puff(s), Inhalation, q4hr, PRN, 11 refills, Unable to obtain: pt unsure of medications propranolol 60 mg oral tablet, See Instructions, Unable to obtain: pt unsure of medications tizanidine, 4 mg, Oral, Bedtime, Unable to obtain: pt unsure of medications traZODONE 50 mg Tab, See Instructions Vitamin D3, 25 mcg, Oral, Daily, Unable to obtain: pt unsure of medications Allergies aminolevulinic acid (AOF) nitroglycerin (Unknown) Social History Alcohol - Denies Alcohol Use, 04/18/2020 Never., 10/02/2024 Substance Abuse - Denies Substance Abuse, 04/18/2020 Never., 10/02/2024 Tobacco - Denies Tobacco Use, 04/18/2020 Former smoker, quit more than 30 days ago Tobacco Use:. Never Smokeless Tobacco Use:. Cigarettes, Household tobacco concerns: No. Yes, 02/13/2025 Family History Acute myocardial infarction: Sister. Diabetes mellitus type 2: Mother, Father and Sister. Hypothyroidism: Sister. Primary malignant neoplasm of lung: Father. Screenings and Assessments 11/02/23 12:16:00 Result Name Value Comment Phone Call Monitoring Consent Agreed to continue call Phone Verification Patient Information Full name, street address and date of verified Program Enrollment Provides verbal consent for enrollment [facility] Program Enrollment Verbally agreed to receive [facility] services [facility] Written Consent Written consent obtained [facility] Verbal Consent By Self 11/02/23 10:00:00 Result Name Value Comment HIPPA Verified Type of Contact Telephone Information Given by Self CM Preferred Spoken Language Moldovan CM Preferred Written [place] (more content not included)...[facility] [id number] Case Information Case Priority: None Programs: -- 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 Referral Reason: Disease management Case Type: Chronic Care Management Risk Score: -- Case Status: Active (November 02, 2023) Date Assigned: October 28, 2023 Assigned By: Ambrocio Gustafson Date Enrolled: November 02, 2023 Assigned Primary Personnel: Ambrocio Gustafson Assigned Secondary Personnel: -- Case Physician: Natacha Oneill MD Ongoing Anxiety Atherosclerosis of abdominal aorta BMI 26.0-26.9,adult Bronchiectasis, uncomplicated Centrilobular emphysema Cough Dizziness 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 Former smoker GERD (gastroesophageal reflux disease) History of small bowel obstruction HLD (hyperlipidemia) HTN (hypertension) Hyponatremia Hypovitaminosis D Interstitial lung disease 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 (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 Home Medications atorvastatin 10 mg Tab, See Instructions, Unable to obtain: pt unsure of medications BD UF Xiao pen needle 4mm x32G, See Instructions, 3 refills, Unable to obtain: pt unsure of medications BLOOD GLUCOSE METER TEST STRIPS, See Instructions, 11 refills, Unable to obtain: pt unsure of medications Freestyle Eduar 2 Flash Glucose Monitoring 14 Day System ([place]), See Instructions, Unable to obtain: pt unsure of medications Freestyle Eduar 2 Flash Glucose Monitoring 14 Day System (Sensor), See Instructions, Unable to obtain: pt unsure of medications Freestyle Eduar 2 sensor, See Instructions, 3 refills, Unable to obtain: pt unsure of medications Glucose Kit, See Instructions, Unable to obtain: pt unsure of medications Gvoke HypoPen 1 mg/0.2 mL subcutaneous solution, Unable to obtain: pt unsure of medications HumaLOG KwikPen 100 units/mL injectable solution, See Instructions, Unable to obtain: pt unsure of medications ibandronate 150 mg oral tablet, 150 mg, Oral, qMonth LANCETS OF CHOICE OR SPECIFIED BY INSURANCE., See Instructions, 11 refills, Unable to obtain: ptunsure of medications Lantus Solostar Pen 100 units/mL subcutaneous solution, See Instructions, Unable to obtain: pt unsure of medications losartan 50 mg Tab, See Instructions, 3 refills, Unable to obtain: pt unsure of medications omeprazole 20 mg Cap-, See Instructions, Unable to obtain: pt unsure of medications Pen [place], See Instructions, 3 refills, Unable to obtain: pt unsure of medications PreserVision AREDS, 2 tablets daily, Oral, Daily, Unable to obtain: pt unsure of medications ProAir RespiClick 90 mcg/inh inhalation powder, 2 puff(s), Inhalation, q4hr, PRN, 11 refills, Unable to obtain: pt unsure of medications propranolol 60 mg oral tablet, See Instructions, Unable to obtain: pt unsure of medications tizanidine, 4 mg, Oral, Bedtime, Unable to obtain: pt unsure of medications traZODONE 50 mg Tab, See Instructions, Unable to obtain: pt unsure of medications Vitamin D3, 25 mcg, Oral, Daily, Unable to obtain: pt unsure of medications Allergies aminolevulinic acid (AOF) nitroglycerin (Unknown) Social History Alcohol - Denies Alcohol Use, 04/18/2020 Never., 10/02/2024 Substance Abuse - Denies Substance Abuse, 04/18/2020 Never., 10/02/2024 Tobacco - Denies Tobacco Use, 04/18/2020 Former smoker, quit more than 30 days ago Tobacco Use:. Never Smokeless Tobacco Use:. Cigarettes, Household tobacco concerns: No. Yes, 02/13/2025 Family History Acute myocardial infarction: Sister. Diabetes mellitus type 2: Mother, Father and Sister. Hypothyroidism: Sister. Primary malignant neoplasm of lung: Father. Screenings and Assessments 11/02/23 12:16:00 Result Name Value Comment Phone Call Monitoring Consent Agreed to continue call Phone Verification Patient Information Full name, street address and date of verified Program Enrollment Provides verbal consent for enrollment [facility] Program Enrollment Verbally agreed to receive [facility] services [facility] Written Consent Written consent obtained [facility] Verbal Consent By Self 11/02/23 10:00:00 Result Name Value Comment HIPPA Verified Type of Contact Telephone Information Given by Self Preferred Spoken Language (more content not included)...[facility] Medicine Office/Clinic Noteon [id number] Medicine Office/Cl[facility] NoteFaboston [facility] Medicine Office/Clinic Note Chief Complaint 6m follow up Patient presents with a persistent cough and fluctuating blood glucose levels. HPI Staff 6m follow up Patient is here for follow up on Diabetes. How often are you checking your blood sugars? yes What are your average readings? _139 Last A1c: Hgb A1C %: 7 % High (08/14/24 09:29:00) Hgb A1c POC: 7.1 % (04/11/24 10:44:00) Patient is here for follow up on hypertension. How often are you checking your blood pressure? _not often What are your average readings? _ Yearly BMP: 06/21/24 Questions/Concerns: Needs refill of ibandronate. States her ortho dr is no longer seeing pts. Still has cough. History of Present Illness The patient is an 84-year-old female presenting with a chronic cough that occurs annually. The patient describes the cough as disruptive and persisting throughout the day despite multiple attempts with [id number] cough medicines, including a sugar-free option, without relief. She expresses concern about potential pneumonia, which a heat and vent aircraft mechanic initially suspected. The patient's blood glucose levels have been likened to a roller coaster, with measurements ranging from the 80s to higher values, with a perceived lack of control over the fluctuations, despite attempts to manage these with dietary adjustments. Historical involvement with diabetic peripheral angiopathy is noted. The patient also reports occasional dizziness, correlating this with episodes of hypoglycemia or significant changes in glucose levels. She has a history of centrilobular emphysema and bronchiectasis, which may contribute to the ongoing cough and is currently using inhaled steroids long-term for management. There is a noted personal history of nicotine dependence, though the patient currently identifies as a former smoker. - Monitoring of blood glucose levels and A1c - Continued management and monitoring of weight given BMI - Regular assessment and management of cardiovascular conditions associated with atherosclerosis - Lung function monitoring with respect to bronchiectasis and centrilobular emphysema - Assessment and management of osteoporosis with potential medication change (e.g., Boniva prescription discussion) Review of Systems PHQ Score Initial Depression Screen Score: 0 SCORE Physical Exam Vitals & Measurements T: 36.8 ???C(Tympanic) HR: 68(Peripheral) RR: 18 BP: 142/90 SpO2: 98% HT: 60 in HT: 152 cm WT: 61.3 kg WT: 135.143 lb BMI: 26.53 General: alert, no acute distress ENMT: oral mucosa moist Cardiovascular: Regular rate and rhythm, normal peripheral perfusion, blood pressure slightly elevated Respiratory: Lungs clear to auscultation in the front, crackles present in the back, respirations non labored Extremities: no deformity, no trauma, no edema Neurological: oriented x 4, level of consciousness appropriate for age, CN II- XII intact, motor strength equal & normal bilaterally, speech normal Abdomen: Soft, Non-tender, Non-distended, + Bowel sounds Assessment/Plan 1. Centrilobular emphysema (J43.2: Centrilobular emphysema) Will send for second opinion given the patient's continuous cough. Follow-up as needed. Ordered: [facility] External Ambulatory Referral 2. Bronchiectasis, uncomplicated (J47.9: Bronchiectasis, uncomplicated) I have recommended a consultation with a new heat and vent aircraft mechanic for further evaluation of the patient???s chronic cough, which is thought to be exacerbated by her bronchiectasis and emphysema. Previous attempts with conventional cough treatments have proved ineffective, indicating the need for specialized insight and management. Ordered: [facility] External Ambulatory Referral 3. 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 Ordered: [facility] External Ambulatory Referral 4. Type 2 diabetes mellitus with peripheral vascular disease (E11.51: Type 2 diabetes mellitus withdiabetic peripheral angiopathy without gangrene) We discussed the importance of regular monitoring of the patient???s blood glucose and A1c levels. More stringent monitoring and possible adjustments in diabetes treatment may be necessary, considering the reported variability in glucose levels manifesting symptoms like dizziness. Ordered: A1c POC [id number] [facility] External Ambulatory Referral 5. History of small bowel obstruction (Z87.19: Personal history of other diseases of the digestive system) No issues at this time. Ordered: [facility] External Ambulatory Referral 6. Atherosclerosis of abdominal aorta (I70.0: Atherosclerosis of aorta) Patient needs to continue on aspirin and statin. 7. BMI 26.0-26.9,adult (Z68.26: Body mass index [BMI] 26.0-26.9, adult) BMI education added 8. Overweight (BMI 25.0-29.9) (E66.3: Overweight) Diet and exercise advised 9. Former smoker (Z87.891: Personal history of nicotine dependence) Please continue not to smoke (more content not included)...[facility] HospitalComment on [facility]: Result Comment: Electronically Signed By: Natacha Oneill MD\.br\Date and Time Signed: 02/13/25 11:27 EDTPre-Visit Planningon [id number]-Visit PlanningPre- Visit Planning From: Natacha Oneill MD To: Sparkle Braga; Sent: 02/12/2025 08:56:47 EDT Subject: RE: Pre-Visit Planning Caller Name: MICHELLE NASH; Caller Number: H , M -Abdominal aorta atherosclerosis, I thought we were no longer tracking this. From: Sparkle Braga To: Natacha Oneill MD; Sent: 02/11/2025 12:58:42 EDT Subject: Pre-Visit Planning Due Date/Time: 02/11/2025 12:58:00 EDT Caller Name: MICHELLE NASH; Caller Number: H , M Ms Dr. Oneill. During a pre-visit planning chart review, I noted the following documentation in the medical record: Current Problem List: Former smoker, HTN, Interstitial lung disease, Overweight, PVD, and Type 2 diabetes mellitus with hyperlipidemia. Current Medication List: Jardiance, albuterol, atorvastatin, fluticasone, Lantus, Humalog, losartan, and propranolol. 06/18/2024 CT Abdomen and Pelvis with Contrast: Extensive atherosclerotic calcifications of the abdominal aorta noted. Based on your medical judgment, can you please clarify if the following condition/complication is present? I can update the Chronic Problem List with your response if you would like. -Abdominal aorta atherosclerosis -Other (please specify): In responding to this request, please exercise your independent professional judgment. The fact that a question is asked does not imply that any particular answer is desired or expected. If you have any questions, please feel free to contact me at extension [phone]. Thank you! Sparkle Braga LPN Clinical Director Of Application Development [address] [address] Extension: [phone] [email or web address]- Visit PlanningPre-Visit Planning From: Sparkle Braga To: Mai VALENTINE, Natacha Concepcion; Sent: 02/11/2025 12:41:58 EDT Subject: Pre-Visit Planning Due Date/Time: 02/11/2025 12:41:00 EDT Caller Name: MICHELLE NASH; Caller Number: Az , Maury Ms Dr. Oneill. During a pre-visit planning chart review, I noted the following documentation in the medical recordindicates this patient has been diagnosed as having: Small bowel obstruction (Unspecified intestinal obstruction, unspecified as to partial versus complete obstruction). ??? The following is also documented in the medical record: 06/15/2024 ED Note: SBO (small bowel obstruction) (K56.609: Unspecified intestinal obstruction, unspecified as to partial versus complete obstruction) 83-year-old female with past surgical history ofpancreatectomy presents to the ER complaining of abdominal pain associate with nausea and vomiting.In the ER patient is afebrile, hypertensive, normal heart rate. Labs are reviewed noted, leukocytosis of 13.7 noted, no lactic acidosis. CT scan concerning for small bowel obstruction. NG tube was ordered along with pain medication and viscous lidocaine. Case was discussed with emergency general surgeon on-call, Dr. Morfin, who recommend admission to the EGS service. Dr. Morfin did present to the ER to examine the patient at bedside. All patient's questions were asked. Patient agreeablewith plan. 06/18/2024 CT Abdomen/Pelvis w/ Contrast: IMPRESSION: No acute process in the abdomen/pelvis. Currently, no evidence for small bowel obstruction. Based on your medical judgment, can you please further validate the above diagnosis? I can update the Chronic Problem List with your response if you would like. -History of small bowel obstruction -The above diagnosis is not supported by clinical indicators and is resolved. -The above diagnosis is supported by the following clinical indicators: -Other (please specify): In responding to this request, please exercise your independent professional judgment. The fact that a question is asked does not imply that any particular answer is desired or expected. If you have any questions, please feel free to contact me at extension [phone]. Thank you! Sparkle Braga LPN Clinical Director Of Application Development [place] [address] Extension: [phone] [email or web address] From: Natacha Oneill MD To: Sparkle Braga; Sent: 02/12/2025 08:55:52 EDT Subject: RE: Pre-Visit Planning Caller Name: MICHELLE NASH; Caller Number: Az , Maury History of small bowel obstructionS[facility] [id number] Case Information Case Priority: None Programs: -- 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 Referral Reason: Disease management Case Type: Chronic Care Management Risk Score: -- Case Status: Active (November 02, 2023) Date Assigned: October 28, 2023 Assigned By: Ambrocio Gustafson Date Enrolled: November 02, 2023 Assigned Primary Personnel: Ambrocio Gustafson Assigned Secondary Personnel: -- Case Physician: Natacha Oneill MD Problems Ongoing Anxiety BMI 26.0-26.9,adult Cough Dizziness 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 Former smoker GERD (gastroesophageal reflux disease) HLD (hyperlipidemia) Hospital discharge follow-up HTN (hypertension) Hyponatremia Hypovitaminosis D Interstitial lung disease Long-term insulin use Major depressive disorder, recurrent, in full remission Malnutrition Multiple falls OAB (overactive bladder) Osteopenia Overweight (BMI 25.0-29.9) Peripheral vascular insufficiency Piriformis syndrome of left side Pitting edema SBO (small bowel obstruction) Shoulder pain, right Type 2 diabetes mellitus with hyperlipidemia UTI symptoms Weakness Historical Procedure/Surgical History Bladder (07/30/2019), Cataract (11/29/2016), Lower back (surface region) (11/29/1989), Colpocleisis, [place]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 Home Medications atorvastatin 10 mg Tab, See Instructions BD UF Xiao pen needle 4mm x32G, See Instructions BLOOD GLUCOSE METER TEST STRIPS, See Instructions, 11 refills fluticasone CFC free 44 mcg/inh Inh Aer w/adapter, See Instructions Freestyle Eduar 2 Flash Glucose Monitoring 14 Day System ([place]), See Instructions Freestyle Eduar 2 Flash Glucose Monitoring 14 Day System (Sensor), See Instructions Freestyle Eduar 2 sensor, See Instructions, 3 refills Glucose Kit, See Instructions Gvoke HypoPen 1 mg/0.2 mL subcutaneous solution HumaLOG KwikPen 100 units/mL injectable solution, See Instructions ibandronate, 150 mg, Oral, qMonth LANCETS OF CHOICE OR SPECIFIED BY INSURANCE., See Instructions, 11 refills Lantus Solostar Pen 100 units/mL subcutaneous solution, See Instructions losartan 50 mg Tab, See Instructions, 3 refills omeprazole 20 mg Cap-DR, See Instructions Pen [place], See Instructions, 3 refills PreserVision AREDS, 2 tablets daily, Oral, Daily ProAir RespiClick 90 mcg/inh inhalation powder, 2 puff(s), Inhalation, q4hr, PRN, 11 refills propranolol 60 mg oral tablet, 90 mg; one and one-half tablets, Oral, Bedtime tizanidine, 4 mg, Oral, Bedtime traZODONE 50 mg Tab, See Instructions Vitamin D3, 25 mcg, Oral, Daily Allergies No Known Medication Allergies Social History Alcohol - Denies Alcohol Use, 04/18/2020 Never., 10/02/2024 Substance Abuse - Denies Substance Abuse, 04/18/2020 Never., 10/02/2024 Tobacco - Denies Tobacco Use, 04/18/2020 Former smoker, quit more than 30 days ago Tobacco Use:., 10/11/2024 Family History Acute myocardial infarction: Sister. Diabetes mellitus type 2: Mother, Father and Sister. Hypothyroidism: Sister. Primary malignant neoplasm of lung: Father. Screenings and Assessments 11/02/23 12:16:00 Result Name Value Comment Phone Call Monitoring Consent Agreed to continue call Phone Verification Patient Information Full name, street address and date of verified CM Program Enrollment Provides verbal consent for enrollment CCM Program Enrollment Verbally agreed to receive [facility] services CCM Written Consent Written consent obtained CCM Verbal Consent By Self 11/02/23 10:00:00 Result Name Value Comment HIPPA Verified Type of Contact Telephone Information Given by Self CM Preferred Spoken Language Moldovan CM Preferred Written Language Pakistani Preferred Communication Mode Verbal Ability to Read/Write Able to read, Able to write Preferred Salutation Brand Ambassador Called No Preferred Method of Contact Home Best Time to Visit or Contact No preference Best Day to Visit or Contact No preference Appointment Reminders Phone Preferred Way to Send PHI Patient portal Preferred Mailing Address [address] [place] [id number] Learning Style Pref Patient Verbal explanation Barriers to Learning None evident Cognitive Deficit No Response to Current Year Correct Response to Current Month Correct Response to Current Time Correct Count Backward 20 to 1 Correct State Months in Reverse Order Correct Repeat Memory Phrase Correct [facility] Test Score Indication None or no significant cognitive impairment Live (more content not included)...[facility] [id number] Case Information Case Priority: None Programs: -- 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 Referral Reason: Disease management Case Type: Chronic Care Management Risk Score: -- Case Status: Active (November 02, 2023) Date Assigned: October 28, 2023 Assigned By: Ambrocio Gustafson Date Enrolled: November 02, 2023 Assigned Primary Personnel: Ambrocio Gustafson Assigned Secondary Personnel: -- Case Physician: Natacha Oneill MD Problems Ongoing Anxiety BMI 26.0-26.9,adult Cough Dizziness 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 Former smoker GERD (gastroesophageal reflux disease) HLD (hyperlipidemia) Hospital discharge follow-up HTN (hypertension) Hyponatremia Hypovitaminosis D Interstitial lung disease Long-term insulin use Major depressive disorder, recurrent, in full remission Malnutrition Multiple falls OAB (overactive bladder) Osteopenia Overweight (BMI 25.0-29.9) Peripheral vascular insufficiency Piriformis syndrome of left side Pitting edema SBO (small bowel obstruction) Shoulder pain, right Type 2 diabetes mellitus with hyperlipidemia UTI symptoms Weakness Historical Procedure/Surgical History Bladder (07/30/2019), Cataract (11/29/2016), Lower back (surface region) (11/29/1989), Colpocleisis, [place]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 Home Medications atorvastatin 10 mg Tab, See Instructions BD UF Xiao pen needle 4mm x32G, See Instructions BLOOD GLUCOSE METER TEST STRIPS, See Instructions, 11 refills fluticasone CFC free 44 mcg/inh Inh Aer w/adapter, See Instructions Freestyle Eduar 2 Flash Glucose Monitoring 14 Day System ([place]), See Instructions Freestyle Eduar 2 Flash Glucose Monitoring 14 Day System (Sensor), See Instructions Freestyle Eduar 2 sensor, See Instructions, 3 refills Glucose Kit, See Instructions Gvoke HypoPen 1 mg/0.2 mL subcutaneous solution HumaLOG KwikPen 100 units/mL injectable solution, See Instructions ibandronate, 150 mg, Oral, qMonth LANCETS OF CHOICE OR SPECIFIED BY INSURANCE., See Instructions, 11 refills Lantus Solostar Pen 100 units/mL subcutaneous solution, See Instructions losartan 50 mg Tab, See Instructions, 3 refills omeprazole 20 mg Cap-DR, 20 mg= 1 cap(s), Oral, Daily Pen [place], See Instructions, 3 refills PreserVision AREDS, 2 tablets daily, Oral, Daily ProAir RespiClick 90 mcg/inh inhalation powder, 2 puff(s), Inhalation, q4hr, PRN, 11 refills propranolol 60 mg oral tablet, 90 mg; one and one-half tablets, Oral, Bedtime tizanidine, 4 mg, Oral, Bedtime traZODONE 50 mg Tab, See Instructions Vitamin D3, 25 mcg, Oral, Daily Allergies No Known Medication Allergies Social History Alcohol - Denies Alcohol Use, 04/18/2020 Never., 10/02/2024 Substance Abuse - Denies Substance Abuse, 04/18/2020 Never., 10/02/2024 Tobacco - Denies Tobacco Use, 04/18/2020 Former smoker, quit more than 30 days ago Tobacco Use:., 10/11/2024 Family History Acute myocardial infarction: Sister. Diabetes mellitus type 2: Mother, Father and Sister. Hypothyroidism: Sister. Primary malignant neoplasm of lung: Father. Screenings and Assessments 11/02/23 12:16:00 Result Name Value Comment Phone Call Monitoring Consent Agreed to continue call Phone Verification Patient Information Full name, street address and date of verified CM Program Enrollment Provides verbal consent for enrollment CCM Program Enrollment Verbally agreed to receive [facility] services CCM Written Consent Written consent obtained CCM Verbal Consent By Self 12/05/23 10:00:00 Result Name Value Comment HIPPA Verified Type of Contact Telephone Information Given by Self CM Preferred Spoken Language Moldovan CM Preferred Written Language Pakistani Preferred Communication Mode Verbal Ability to Read/Write Able to read, Able to write Preferred Salutation Brand Ambassador Called No Preferred Method of Contact Home Best Time to Visit or Contact No preference Best Day to Visit or Contact No preference Appointment Reminders Phone Preferred Way to Send PHI Patient portal Preferred Mailing Address [address] [place] [address] Learning Style Pref Patient Verbal explanation Barriers to Learning None evident Cognitive Deficit No Response to Current Year Correct Response to Current Month Correct Response to Current Time Correct Count Backward 20 to 1 Correct State Months in Reverse Order Correct Repeat Memory Phrase Correct [facility] Test Score Indication None or no significant cognitive impairment (more content not included)...Normal [facility] Hospital[facility]ucose (Bld) [Mass/Vol]on [id number] Blood, AIG842 mg/dLNOMS HealthcareLaboratory - Hematology and Cell countson 12-12-2024 HbA1c (Bld) [Mass fraction]7.7 %[facility] HealthcareNo Panel Informationon 12-12-2024 [facility] HealthcarePopulation Healthon [id number] HealthPosaint francis healthcare Health Case Information Case Priority: None Programs: -- 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 Referral Reason: Disease management Case Type: Chronic Care Management Risk Score: -- Case Status: Active (November 02, 2023) Date Assigned: October 28, 2023 Assigned By: Ambrocio Gustafson Date Enrolled: November 02, 2023 Assigned Primary Personnel: Ambrocio Gustafson Assigned Secondary Personnel: -- Case Physician: Natacha Oneill MD Problems Ongoing Anxiety BMI 26.0-26.9,adult Cough Dizziness 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 Former smoker GERD (gastroesophageal reflux disease) HLD (hyperlipidemia) Hospital discharge follow-up HTN (hypertension) Hyponatremia Hypovitaminosis D Interstitial lung disease Long-term insulin use Major depressive disorder, recurrent, in full remission Malnutrition Multiple falls OAB (overactive bladder) Osteopenia Overweight (BMI 25.0-29.9) Peripheral vascular insufficiency Piriformis syndrome of left side Pitting edema SBO (small bowel obstruction) Shoulder pain, right Type 2 diabetes mellitus with hyperlipidemia UTI symptoms Weakness Historical Procedure/Surgical History Bladder (07/30/2019), Cataract (11/29/2016), Lower back (surface region) (11/29/1989), Colpocleisis, [place]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 Home Medications atorvastatin 10 mg Tab, See Instructions BD UF Xiao pen needle 4mm x32G, See Instructions BLOOD GLUCOSE METER TEST STRIPS, See Instructions, 11 refills fluticasone CFC free 44 mcg/inh Inh Aer w/adapter, See Instructions Freestyle Eduar 2 Flash Glucose Monitoring 14 Day System ([place]), See Instructions Freestyle Eduar 2 Flash Glucose Monitoring 14 Day System (Sensor), See Instructions Freestyle Eduar 2 sensor, See Instructions, 3 refills Glucose Kit, See Instructions Gvoke HypoPen 1 mg/0.2 mL subcutaneous solution HumaLOG KwikPen 100 units/mL injectable solution, See Instructions ibandronate, 150 mg, Oral, qMonth LANCETS OF CHOICE OR SPECIFIED BY INSURANCE., See Instructions, 11 refills Lantus Solostar Pen 100 units/mL subcutaneous solution, See Instructions losartan 50 mg Tab, See Instructions, 3 refills omeprazole 20 mg Cap-DR, 20 mg= 1 cap(s), Oral, Daily Pen [place], See Instructions, 3 refills PreserVision AREDS, 2 tablets daily, Oral, Daily ProAir RespiClick 90 mcg/inh inhalation powder, 2 puff(s), Inhalation, q4hr, PRN, 11 refills propranolol 60 mg oral tablet, 90 mg; one and one-half tablets, Oral, Bedtime tizanidine, 4 mg, Oral, Bedtime traZODONE 50 mg Tab, See Instructions Vitamin D3, 25 mcg, Oral, Daily Allergies No Known Medication Allergies Social History Alcohol - Denies Alcohol Use, 04/18/2020 Never., 10/02/2024 Substance Abuse - Denies Substance Abuse, 04/18/2020 Never., 10/02/2024 Tobacco - Denies Tobacco Use, 04/18/2020 Former smoker, quit more than 30 days ago Tobacco Use:., 10/11/2024 Family History Acute myocardial infarction: Sister. Diabetes mellitus type 2: Mother, Father and Sister. Hypothyroidism: Sister. Primary malignant neoplasm of lung: Father. Screenings and Assessments 11/02/23 12:16:00 Result Name Value Comment Phone Call Monitoring Consent Agreed to continue call Phone Verification Patient Information Full name, street address and date of verified CM Program Enrollment Provides verbal consent for enrollment CCM Program Enrollment Verbally agreed to receive CCM services CCM Written Consent Written consent obtained CCM Verbal Consent By Self 11/02/23 10:00:00 Result Name Value Comment HIPPA Verified Type of Contact Telephone Information Given by Self CM Preferred Spoken Language Moldovan CM Preferred Written Language Pakistani Preferred Communication Mode Verbal Ability to Read/Write Able to read, Able to write Preferred Salutation MrsJabari Brand Ambassador Called No Preferred Method of Contact Home Best Time to Visit or Contact No preference Best Day to Visit or Contact No preference Appointment Reminders Phone Preferred Way to Send PHI Patient portal Preferred Mailing Address [address] [place] [phone] Learning Style Pref Patient Verbal explanation Barriers to Learning None evident Cognitive Deficit No Response to Current Year Correct Response to Current Month Correct Response to Current Time Correct Count Backward 20 to 1 Correct State Months in Reverse Order Correct Repeat Memory Phrase Correct [facility] Test Score Indication None or no significant cognitive impairment (more content not included)...Normal [facility] Medicine Office/Clinic Noteon [id number] Medicine Office/Clinic NoteChanning Home [facility] Office/Clinic Note HPI Staff Michelle is a 83 year old female presenting with ongoing cough Onset: for months gets worse through the day History of Present Illness pt presents today with continued cough Review of Systems PHQ Score Initial Depression Screen Score: 0 SCORE Physical Exam Vitals & Measurements T: 36.1 ???C(Oral) HR: 68(Peripheral) RR: 20 BP: 124/82 SpO2: 98% HT: 60 in HT: 152.0 cm WT: 60.5 kg WT: 133.38 lb BMI: 26.19 General: alert, no acute distress ENMT: oral mucosa moist, no pharyngeal erythema or exudate Cardiovascular: regular rate and rhythm, normal peripheral perfusion Respiratory: Lungs CTA, respirations non labored Extremities: no deformity, no trauma Neurological: oriented x 4, LOC appropriate for age, CN II-XII intact, motor strength equal & normal bilaterally, speech normal Assessment/Plan 1. Cough (R05.9: Cough, unspecified) cough is somewhat better according to her . will start Flovent today. pt will reach out to Dr. Jean-Baptiste's office. he has already scheduled a PFT and CT for 11/28/24 2. Interstitial lung disease (J84.9: Interstitial pulmonary disease, unspecified) Chest xray results reviewed with patient and . Phone call was made to Dr. Oneill and Dr. Jean-Baptiste's staff for further treatment options. will start flovent 3. BMI 26.0-26.9,adult (Z68.26: Body mass index [BMI] 26.0-26.9, adult) BMI education given Ordered: Body Mass Index (BMI) documented 3008F Current tobacco non-user 1036F Depression Screening Negative 3352F Influenza immunization status assessed 1030F Most recent diastolic blood pressure 80-89 mm Hg 3079F Patient screen for fall risk: no falls in last year or 1 fall with no injury in last year 1101F Systolic BP 130-139 mm Hg (Most Recent) 3075F 4. Former smoker (Z87.891: Personal history of nicotine dependence) continue not smoking Ordered: Body Mass Index (BMI) documented 3008F Current tobacco non-user 1036F Depression Screening Negative 3352F Influenza immunization status assessed 1030F Most recent diastolic blood pressure 80-89 mm Hg 3079F Patient screen for fall risk: no falls in last year or 1 fall with no injury in last year 1101F Systolic BP 130-139 mm Hg (Most Recent) 3075F Orders: fluticasone, = 2 puff(s), Inhalation, BID, # 10.6 gram, Refills(s) 0, Pharmacy: [facility]/pharmacy #[id number],152, cm, 10/02/24 10:59:00 EST, Height/Length Dosing, 59.9, kg, 10/02/24 10:59:00 EST, Weight Dosing Follow-up No qualifying data available Problem List/Past Medical History Ongoing Anxiety BMI 26.0-26.9,adult Cough Dizziness 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 Former smoker GERD (gastroesophageal reflux disease) HLD (hyperlipidemia) Hospital discharge follow-up HTN (hypertension) Hyponatremia Hypovitaminosis D Interstitial lung disease Long-term insulin use Major depressive disorder, recurrent, in full remission Malnutrition Multiple falls OAB (overactive bladder) Osteopenia Overweight (BMI 25.0-29.9) Peripheral vascular insufficiency Piriformis syndrome of left side Pitting edema SBO (small bowel obstruction) Shoulder pain, right Type 2 diabetes mellitus with hyperlipidemia UTI symptoms Weakness Historical Procedure/Surgical History Bladder (07/30/2019), Cataract (11/29/2016), Lower back (surface region) (11/29/1989), Colpocleisis, [place]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 Medications atorvastatin 10 mg Tab, See Instructions BD UF Nanno pen needle 4mm x32G, See Instructions, 3 refills benzonatate 200 mg oral capsule, 200 mg= 1 cap(s), Oral, TID BLOOD GLUCOSE METER TEST STRIPS, See Instructions, 11 refills Flovent HFA 44 Aerosol, 2 puff(s), Inhalation, BID Freestyle Eduar 2 Flash Glucose Monitoring 14 Day System ([place]), See Instructions Freestyle Eduar 2 Flash Glucose Monitoring 14 Day System (Sensor), See Instructions Freestyle Eduar 2 sensor, See Instructions, 3 refills Glucose Kit, See Instructions Gvoke HypoPen 1 mg/0.2 mL subcutaneous solution HumaLOG KwikPen 100 units/mL injectable solution, See Instructions ibandronate, 150 mg, Oral, qMonth LANCETS OF CHOICE OR SPECIFIED BY INSURANCE., See Instructions, 11 refills Lantus Solostar Pen 100 units/mL subcutaneous solution, See Instructions losartan 50 mg Tab, See Instructions, 3 refills omeprazole 20 mg Cap-DR, 20 mg= 1 cap(s), Oral, Daily Pen [place], See Instructions, 3 refills PreserVision AREDS, 2 tablets daily, Oral, Daily ProAir RespiClick 90 mcg/inh inhalation powder, 2 puff(s), Inhalation, q4hr, PRN, 11 refills propranolol 60 mg oral tablet, 90 mg; one and one-half tablets, Oral, Bedtime tizanidine, 4 mg, Oral, Bedtime traZODONE 50 mg Tab, See Instructions Vitamin D3, 25 mcg, Oral, Daily Allergies No Known Medication Allergies Social History Alcohol - Denies Alcohol Use, 04/18/2020 Never., 10/02/2024 Substance Abuse - Den (more content not included)...[facility]:Result Comment: Electronically Signed By: Binta Hutton.yonis\Date and Time Signed: 10/11/24 12:21 ESTAmbulatory Visit Summaryon [id number] Visit SummaryAmbulatory Visit Summary MICHELLE NASH:1940 Visit Date:10/02/2024 Ambulatory Visit Instructions These Are Your Goals Type II Diabetes Mellitus- prevent complications and improve A1c Interventions: Keep follow up appoinamnts as scheduled - Progressing complete labs as directed including; FBS, A1c, BMP - Progressing improve dietary habits by reducing refined sugar intake - Progressing review educational material - Done take medications as prescribed - Progressing maintain therapeutic BP and prevent complications Interventions: get adequate sleep each night, 6-8 hours - Progressing keep follow up appointments as scheduled - Progressing maintain a heart healthy diet with less salt - Progressing monitor BP on a regualr basis - Progressing review educational material take medications as prescribed - Progressing Your Care Team Attending Physician - Natacha Oneill MD. Primary Care Physician - Natacha Oneill MD This Is Your Medications List Misc Prescription (BD UF Nanno pen needle 4mm x32G) Misc Prescription (BLOOD GLUCOSE METER TEST STRIPS) Misc Prescription (Freestyle Eduar 2 Flash Glucose Monitoring 14 Day System ([place])) Misc Prescription (Freestyle Eduar 2 Flash Glucose Monitoring 14 Day System ([place])) Misc Prescription (Freestyle Eduar 2 sensor) Misc Prescription (Glucose Kit) Misc Prescription (LANCETS OF CHOICE OR SPECIFIED BY INSURANCE.) Misc Prescription (Pen [place]) atorvastatin (atorvastatin 10 mg Tab) cholecalciferol (Vitamin D3) glucagon (Gvoke HypoPen 1 mg/0.2 mL subcutaneous solution) ibandronate insulin glargine (Lantus Solostar Pen 100 units/mL subcutaneous solution) insulin lispro (HumaLOG KwikPen 100 units/mL injectable solution) losartan (losartan 50 mg Tab) multivitamin with minerals (PreserVision AREDS) omeprazole (omeprazole 20 mg Cap-DR) propranolol (propranolol 60 mg oral tablet) tizanidine trazodone (traZODONE 50 mg Tab) Procedures Performed Bladder (07/30/2019), Cataract (11/29/2016), Lower back (surface region) (11/29/1989), Colpocleisis, [place]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 Discharge Vitals Temperature (Temporal Artery) 36.8 ???C Heart Rate (Peripheral) 56 Respiratory Rate 18 Blood Pressure 120/76 Height 152 cm Height 60 in Weight 59.9 kg Weight 131.78 lb BMI 25.93 What to do next Scheduled Follow-Up Appointments Wednesday 10:00 AM EDT With: Mai VALENTINE, Natacha Concepcion Where: [address] [address]- Wednesday 11:00 AM EDT With: Where: [address] [address]- Medications What How Much When Why Instructions Unchanged atorvastatin (atorvastatin 10 mg Tab) See instructions TAKE 1 TABLET BY MOUTH AT BEDTIME Unchanged cholecalciferol (Vitamin D3) 25 Microgram By Mouth Every day take 3 caps daily Unchanged glucagon (Gvoke HypoPen 1 mg/ 0.2 mL subcutaneous solution) INJECT 1MG SUBCUTANEOUSLY ONETIME Unchanged ibandronate 150 Milligram By Mouth Once a month Unchanged insulin glargine (Lantus Solostar Pen 100 units/ mL subcutaneous solution) See instructions INJECT 10 UNITS SUBCUATANEOUSLY TWICE A DAY Unchanged insulin lispro (HumaLOG KwikPen 100 units/ mL injectable solution) See instructions TID AC MEALS 150-200 2U, 201-250 4U, 251-300 6U, 301-350 8U,351-400 10U, > 401 12U AND CALL PCP Unchanged losartan (losartan 50 mg Tab) See instructions TAKE 1 TABLET BY MOUTH DAILY Unchanged Misc Prescription (BD UF Nanno pen needle 4mm x32G) See instructions Use one pen needle with each administration of lantus BID and humalog TID. Dx E11.9 Unchanged Misc Prescription (BLOOD GLUCOSE METER TEST STRIPS) See instructions Interstitial lung disease Type 2 diabetes mellitus with hyperglycemia, without long-term current use of insulin Yeast infection BMI 22.0-22.9, adult BLOOD GLUCOSE METER TEST STRIPS OF CHOICE, OR SPECIFIED BY INSURANCE. USE WITH METER ONCE DAILY. DX E11.9 Unchanged Misc Prescription (Freestyle Eduar 2 Flash Glucose Monitoring 14 Day System ([place])) Seeinstructions Weakness Hyponatremia Freestyle Eduar Flash Glucose Monitoring 14 Day System ([place]) Unchanged Misc Prescription (Freestyle Eduar 2 Flash Glucose Monitoring 14 Day System (Sensor)) Seeinstructions Weakness Hyponatremia Freestyle Eduar Flash Glucose Monitoring 14 Day System (Sensor).Replace sensor every 14 days. Unchanged Misc Prescription (Freestyle Eduar 2 sensor) See instructions DM type 2, not at goal Insulin long-term use Free style Eduar 2 Unchanged Misc Prescription (Glucose Kit) See instructions Interstitial lung disease Type 2 diabetes mellitus with hyperglycemia, without long-term current use of insulin Yeast infection BMI 22.0-22.9, adult Glucose meter. Include autolet, matching test strips, lancets, & alcoho (more content not included)... [facility] Medicine Office/Clinic Noteon 10-02-2024 [facility]/Clinic NoteCh[facility] Office/Clinic Note Chief Complaint Cough lasting two weeks and persistent skin lesion on the head HPI Staff Michelle is an 83 year old female presenting for sick visit Acute: cough X 2 weeks _Respiratory C/O: Duration: 2 weeks_ Body aches: no Chest congestion: yes little bit Chills: yes but says she's always cold Cough: yes Ear complaints: no Eye itching/watering: no Fever: no Headache: yes Nasal congestion: yes Nasal discharge: yes clear Poor appetite: yes so- so Reduced activity: yes Sinus pain/pressure: no Sneezing: yes Sputum production: yes only a couple times slightly tinged yellow Wheezing: no Ill contacts: no Remedies tried: coricidin _ _ History of Present Illness The patient is an 83-year-old female presenting with a persistent cough. The cough has been ongoingfor approximately two weeks. She recalls that her daughter, Ambrocio, encouraged her to seek medical evaluation. She describes the cough as bothersome enough to disturb her spouse. She has no current history of inhaler use, although it was part of her past medical regimen a long time ago with Dr. Dudley. Additionally, she reports a longstanding pimple located on the back of her head, which has scabbed and itches frequently. She expresses concern about the potential for it to develop into a more serious condition, citing an experience of a friend who had a small spot that was malignant. The patient denies any recent management attempts or changes to the persistent lesion. There is no noted history of fever, weight loss, or any significant medical events or interventions preceding the currentsymptoms. Review of Systems PHQ Score Initial Depression Screen Score: 0 SCORE Physical Exam Vitals & Measurements T: 36.8 ???C(Temporal Artery) HR: 56(Peripheral) RR: 18 BP: 120/76 SpO2: 97% HT: 60 in HT: 152 cm WT: 59.9 kg WT: 131.78 lb BMI: 25.93 General: alert, no acute distress ENMT: oral mucosa moist Cardiovascular: Regular rate and rhythm, normal peripheral perfusion Respiratory: Lungs with wheezing, respirations non labored Extremities: no deformity, no trauma, scabbed over what looks to be pimple is on the back of the patient's scalp. Neurological: oriented x 4, level of consciousness appropriate for age, CN II- XII intact, motor strength equal & normal bilaterally, speech normal Abdomen: Soft, Non-tender, Non-distended, + Bowel sounds Assessment/Plan 1. Cough, unspecified (R05.9) The patient presents with a 2-week history of cough. Differential diagnosis includes respiratory infection with possible bronchospasm due to noted wheezing. Recommended management includes the initiation of albuterol inhalation therapy to address wheezing symptoms and a prescription for an antibiotic to treat any underlying bacterial infection. Additionally, cough medicine will be provided for symptomatic relief. The patient is advised against the initiation of vitamin C supplementation until symptom resolution. Ordered: albuterol, 2 puff(s), Inhalation, q4hr for wheezing or SOB, 1 EA, Refill(s) 11, Or cheapest alternative, [facility]/pharmacy #[id number], 152, cm, 10/02/24 10:59:00 EST, Height/Length Dosing, 59.9, kg, 10/02/24 10:59:00 EST, Weight Dosing azithromycin, = 1 packet(s), Oral, As Directed, as directed on package labeling, X 5 day(s), # 6 tab(s), Refills(s) 0, Pharmacy: [facility]/pharmacy #[id number], 152, cm, 10/02/24 10:59:00 EST, Height/Length Dosing, 59.9, kg, 10/02/24 10:59:00 EST, Weight Dosing benzonatate, 200 mg = 1 cap(s), Oral, TID, X 7 day(s), # 21 cap(s), Refills(s) 0, Pharmacy: [facility]/pharmacy #[id number], 152, cm, 10/02/24 10:59:00 EST, Height/Length Dosing, 59.9, kg, 10/02/24 10:59:00 EST, Weight Dosing Body Mass Index (BMI) documented 3008F Current tobacco non-user 1036F Depression Screening Negative 3352F Influenza immunization administered or previously received 4274F Most recent diastolic blood pressure <80 mm Hg 3078F Patient screen for fall risk: no falls in last year or 1 fall with no injury in last year 1101F Systolic BP <130 mm Hg (Most Recent) 3074F 2. Other skin changes (R23.8) The patient reports an itchy, scabbed pimple on the scalp with a long duration. Given the stable non-evolving appearance and self-reported benign characteristics, reassure regarding the low likelihood of malignancy as the lesion does not present the characteristics typical of a neoplastic process. A dvise monitoring the lesion and consider dermatological evaluation if changes occur. Recommend avoidance of manipulation to prevent potential infection or irritation. Ordered: albuterol, 2 puff(s), Inhalation, q4hr for wheezing or SOB, 1 EA, Refill(s) 11, Or cheapest alternative, [facility]/pharmacy #[id number], 152, cm, 10/02/24 10:59:00 EST, Height/Length Dosing, 59.9, kg, 10/02/24 10:59:00 EST, Weight Dosing azithromycin, = 1 packet(s), Oral, As Directed, as directed on package labeling, X 5 day(s), # 6 tab(s), Refills(s) 0, Pharmacy: [facility]/pharmacy #[id number], 152, cm, 10/02/24 10:59 (more content not included)...[facility] Comment on above:Result Comment: Electronically Signed By: Mai VALENTINE, Natacha Finnegan.br\Date and Time Signed: 10/02/24 11:31 ESTCHEMISTRYOrdered By: SYSTEM SYSTEM on [id number] [Mass/Vol]151 mg/yUIbopea930 - 200 mg/dLRemisol ChemCholesterol in HDL [Mass/Vol]44 mg/dLInvalid Interpretation CodeRemisol Chem Comment on above:Result Comment: '>= 60 LOW RISK' '<= 40 HIGH RISK'Cholesterol in LDL [Mass/Vol]99 mg/dLNormal<=129mg/dLRemisol ChemCholesterol in VLDL [Mass/Vol]22 mg/dLNormal7 - 40 mg/dLRemisol Chem Triglyceride [Mass/Vol]108 mg/dLNormal<=149mg/dLRemisol ChemCHEMISTRYOrdered By: Gagan Shanks on [id number] (Bld) [Mass fraction]7.0 %High<=5.9%[facility] ChemAutoSSLipid Panelon [id number] [Mass/Vol]151 mg/[id number] [facility] HospitalComment on above:Performed By: #### [id number] #### [facility] [address] [place], [place] [address]Ejiksspfvvi in HDL [Mass/Vol]44 mg/dLInvalid Interpretation CodeCleveland Clinic Fairview HospitalComment on above:Result Comment: '>= 60 LOW RISK' '<= 40 HIGH RISK'Performed By: #### [id number] #### [facility] [address], [place] [address]Ofgvbtghgwg in LDL [Mass/Vol]99 mg/dLNormal<=129[facility] HospitalComment on above:Performed By: #### [id number] #### [facility] [address] [place], [place] [address]Rvkczzxnqme in VLDL [Mass/Vol]22 mg/dLNormal7-40[facility] HospitalComment on above:Performed By: #### [id number] #### [facility] [address] [place], [place] [address]Rbwmvenbqzyl [Mass/Vol]108 mg/dLNormal<=149[facility] HospitalComment on above:Performed By: #### [id number] #### [facility] [address] [place], [place] [address]QGTCSJEJFGnsiayt By: SYSTEM SYSTEM on 77-60-6391Qeettca DL <= 20 mg/L (U) [Mass/Vol]4.4 mg/dLHigh0.0 - 1.9 mg/dLRemisol ChemU Microalbon 16-38-5969Xyttryg DL <= 20 mg/L (U) [Mass/Vol]4.4 mg/dLHigh0.0-1.9[facility]ther [facility] Orthopaedic InstituteComment on above:Performed By: #### [id number] #### [place] [facility] [address] [place], [place] [address]Wkjsdx Queryon 47-79-6908Mbtgyf QueryCoding Query From: Angela Schneider RN To: Kelvin Wallace DO; Cc: Mariaa Quinteros; Sent: 06/23/2024 06:54:08 EDT ! Subject: Coding Query Due Date/Time: 06/24/2024 06:54:00 EDT Caller Name: MICHELLE NASH; Caller Number: Az , M Documentation in the medical record indicates the following: Severe hypertension Systolic BP consistently > 180 IV or STAT anti-hypertensive medications H&P-She seemed lethargic and uncomfortable at home, so she was brought back to the ED. Right now, she denies any significant abdominal pain, states it is just sore . Hypertensive in ED up to 230systolic, given hydralazine and BP down to 150 systolic. Based on your medical judgment, can you please clarify which, if any, of the following conditions are present? Respond back with any that apply: [___]Hypertensive urgency [___]Hypertensive emergency [___]Hypertensive crisis [___]Other (please specify): In responding to this request, please exercise your independent professional judgement. The fact that a question is asked does not imply that any particular answer is desired or expected. Thank you! Angela [phone] From: Kelvin Wallace DO To: Angela Schneider RN; Sent: 06/26/2024 13:13:19 EDT Subject: RE: Coding Query Caller Name: MICHELLE NASH; Caller Number: H , M Hypertensive urgencyNormalCleveland Clinic Fairview HospitalBMPon 47-52-0664Rvuugnnysx [Mass/Vol]0.5 mg/dLNormal0.5-1.3FThe MetroHealth SystemComment on above: Performed By: #### [id number] #### [facility] [address] [place], [place] [address]Migg nitrogen/Creatinine [Mass ratio]18 No SpfjsEdopph21-28 [facility] HospitalComment on above:Performed By: #### [id number] #### [facility] [address] [place], [place] [address]Xiykz gap [Moles/Vol]11 mmol/LNormal6-16[facility] HospitalComment on above:Performed By: #### [id number] #### [facility] [address] [place], [place] [address]Vzkuije [Mass/Vol]8.7 mg/dLLow8.9-11.1FThe MetroHealth SystemComment on above:Performed By: #### [id number] #### [facility] [address] [place], [place] [address]Jkhohtdg [Moles/Vol]106 mmol/BIiatik081-658TtedbeCleveland Clinic Fairview HospitalComment on above:Performed By: #### [id number] #### [facility] [address] [place], [place] [address]ZG8 [Moles/Vol]23 mmol/VJppnas88-23LdjmtcCleveland Clinic Fairview Hospital Comment on above:Performed By: #### [id number] #### [facility] [address] [place], [place] [address]Nkrffut [Mass/Vol]134 mg/nFJqjpjt29-256SqfyyfCleveland Clinic Fairview HospitalComment on above:Performed By: #### [id number] #### [facility] [address] [place], [place] [address]Wsimpgptf [Moles/Vol]3.5 mmol/LNormal3.5-5.3FThe MetroHealth SystemComment on above:Performed By: #### [id number] #### [facility] [address] [place], [place] [address]Jfpvpp [Moles/Vol]136 mmol/QEaxgod241-962QdvejgCleveland Clinic Fairview HospitalComment on above:Performed By: #### [id number] #### [facility] [address] [place], [place] [address]Xtsv nitrogen [Mass/Vol]9 mg/dLNormal5-21[facility] HospitalComment on above:Performed By: #### [id number] #### [place] [facility] [address] [place], [place] [address]WSCUODTRLVbxumrp By: Lab ROPUser on 44-94-8613Nodnbfj [Mass/Vol]138 mg/bMZdao57 - 99 mg/dLJIM TALIAFERR[facility] POC SubsectionComment on above:Result Comment: Notified RN/ASHLEY Device [id number] 1Invalid Interpretation Code [facility] POC SubsectionPOC User [id number] 1Invalid Interpretation CodeJIM [facility]ALIAFERRO [facility] POC SubsectionPOC UsernamTaylor Thompson Interpretation CodeJIM TALIAFERRO [facility] [place] POC SubsectionCHEMISTRYOrdered By: SYSTEM SYSTEM on 84-38-8490Gjeuz gap [Moles/Vol] 11 mmol/LNormal6 - 16 mEq/LRemisol ChemCalcium [Mass/Vol]8.7 mg/dLLow8.9 - 11.1 mg/dLRemisol ChemChloride [Moles/Vol]106 mmol/QAzsred249 - 111 mmol/LRemisol ChemCO2 [Moles/Vol]23 mmol/EMidfgu41 - 31 mmol/LRemisol ChemCreatinine [Mass/Vol]0.5 mg/dLNormal0.5 - 1.3 mg/dLRemisol NnozcQNU14 mL/min/1.73 c5Uqbgkm >=59mL/min/1.73 s8Tdzhmeu ChemGlucose [Mass/Vol]134 mg/eMGyuodl16 - 199 mg/dL Remisol ChemMagnesium [Mass/Vol]1.7 mg/dLNormal1.3 - 2.4 mg/dLRemisol Chem Potassium [Moles/Vol]3.5 mmol/LNormal3.5 - 5.3 mmol/LRemisol ChemSodium [Moles/Vol]136 mmol/ZSicbxx873 - 145 mmol/LRemisol ChemUrea nitrogen [Mass/Vol]9 mg/dLNormal5 - 21 mg/dLRemisol ChemUrea nitrogen/Creatinine [Mass ratio]18 mg/diBohzjv07 - 20Remisol ChemCapillary Glucose POCon 28-87-4244Ftitepw [Mass/Vol]138 mg/sICibf54-93HyyjwgCleveland Clinic Fairview HospitalComment on above:Result Comment: Notified RN/MDPerformed By: #### [id number] #### [facility] [address] [place], [place] [address]Kujbsrsettn 23-41-6067Zltjlhkvd [Mass/Vol]1.7 mg/dLNormal 1.3-2.4FThe MetroHealth SystemComment on above:Performed By: #### [id number] #### [facility] [address] [place], [place] [address]XNQbd 50-50-6229Gsucwsfcko [Mass/Vol]0.5 mg/dLNormal0.5-1.3 [facility] HospitalComment on above:Performed By: #### [id number] #### [facility] [address] [place], [place] [address]Nyzloti [Mass/Vol]131 mg/lEKldvcu04-541KmyoinCleveland Clinic Fairview HospitalComment on above:Performed By: #### [id number] #### [facility] [address] [place], [place] [address]Xbfy nitrogen [Mass/Vol]11 mg/dLNormal5-21[facility] HospitalComment on above:Performed By: #### [id number] #### [facility] [address] [place], [place] [address]Fvls nitrogen/Creatinine [Mass ratio]22 No ZlxuqStyz97-23AazzwyCleveland Clinic Fairview HospitalComment on above:Performed By: #### [id number] #### [facility] [address] [place], [place] [address]Rjnwt gap [Moles/Vol]12 mmol/LNormal6-16[facility] HospitalComment on above:Performed By: #### [id number] #### [place] [facility] [address] [place], [place] [address]Mcnccic [Mass/Vol]8.0 mg/dLLow8.9-11.1FThe MetroHealth SystemComment on above:Performed By: #### [id number] #### [place] [facility] [address], [place] [address]Ctstsrij [Moles/Vol]109 mmol/DEzzmku717-543XzgansCleveland Clinic Fairview HospitalComment on above:Performed By: #### [id number] #### [facility] [address] [place], [place] [address]RV2 [Moles/Vol]21 mmol/FRvajpo48-35LetvrkCleveland Clinic Fairview Hospital Comment on above:Performed By: #### [id number] #### [facility] [address] [place], [place] [address]Ykvigfdau [Moles/Vol]3.5 mmol/LNormal3.5-5.3FThe MetroHealth SystemComment on above:Performed By: #### [id number] #### [facility] [address] [place], [place] [address]Wulxja [Moles/Vol]138 mmol/MKwtoil847-931IpkxbhCleveland Clinic Fairview HospitalComment on above:Performed By: #### [id number] #### [facility] [address], [place] [address]GSZKhy 71-45-8225Lnjd HB Qnt0.40 mmol/LHigh0.02-0.27[facility] HospitalComment on above:Performed By: #### [id number] #### [facility] [address], [place] [address]SLN w/ Auto Diffon 56-16-1680Xdnptcyub/100 WBC (Bld)0.7 %Normal 0.0-2.0[facility] HospitalComment on above:Performed By: #### [id number] #### [facility] [address] [place], [place] [address]Qetkmjxgp/Leukocytes Auto (Bld) [Pure # fraction]0.1 E9/LNormal 0.0-0.2FThe MetroHealth SystemComment on above:Performed By: #### [id number] #### [facility] [address] [place] [address]Kocluyrisnk (Bld) [#/Vol]0.2 E9/LNormal0.0-0.5FThe MetroHealth SystemComment on above:Performed By: #### [id number] #### [facility] [address] [place] [address]Jtrqifzboyj/100 WBC (Bld)3.1 %Normal0.0-8.0[facility] HospitalComment on above:Performed By: #### [id number] #### [facility] [address] [place] [address]Cwkmzrypdcq distribution width (RBC) [Ratio]13.7 %Normal 10.9-14.2FThe MetroHealth SystemComment on above:Performed By: #### [id number] #### [facility] [address] [place] [address]Slrapomjqz (Bld) [Volume fraction]37.6 %Tdtzes11.0-46.0[facility] HospitalComment on above:Performed By: #### [id number] #### [facility] [address] [place] [address]Ptmcoipfyf (Bld) [Mass/Vol]12.6 g/bDSqowut18.0-16.0[facility] HospitalComment on above:Performed By: #### [id number] #### [facility] [address] [place] [address]Ujaikgwvlnt (Bld) [#/Vol]1.9 E9/LNormal1.0-4.0[facility] HospitalComment on above:Performed By: #### [id number] #### [facility] [address] [place] [address]Jetfwbhradd/100 WBC (Bld)26.3 %Zuzxqk34.0-50.0[facility] HospitalComment on above:Performed By: #### [id number] #### [facility] [address] [place] [address]QDX (RBC) [Entitic mass]32.2 ocNgoobs10.0-34.0[facility] HospitalComment on above:Performed By: #### [id number] #### [facility] [address] [place] [address]ZHBK (RBC) [Mass/Vol]33.6 g/aJLotjol74.4-36.0[facility] HospitalComment on above:Performed By: #### [id number] #### [facility] [address] [place] [address]NRM (RBC) [Entitic vol]95.8 xGWgetmi53.0-100.0[facility] HospitalComment on above:Performed By: #### [id number] #### [facility] [address] [place] [address]Bojkxudwu (Bld) [#/Vol]0.9 E9/LNormal0.2-1.0[facility] HospitalComment on above:Performed By: #### [id number] #### [facility] [address] [place] [address]Gzdzkfddjup (Bld) [#/Vol]4.2 E9/LNormal2.0-7.5FThe MetroHealth SystemComment on above:Performed By: #### [id number] #### [facility] [address] [place] [address]Gpjqjpucopn/100 WBC (Bld)57.5 %Xvgdel55.0-75.0[facility] HospitalComment on above:Performed By: #### [id number] #### [facility] [address] [place] [address]Sxseljzt151.0 E9/PWmhobz502.0-500.0[facility] Comment on above:Performed By: #### [id number] #### [facility] [address], [place] [address]Oyynmohc mean volume (Bld) [Entitic vol]10.5 fLNormal6.4-10.8 [facility] HospitalComment on above:Performed By: #### [id number] #### [facility] [address] [place] [address]EKT (Bld) [#/Vol]3.9 E12/LLow4.3-5.9[facility] Comment on above:Performed By: #### [id number] #### [facility] [address] [place] [address]VVS corrected for nucl RBC Auto (Bld) [#/Vol]7.4 E9/LNormal 4.0-11.0[facility] HospitalComment on above:Performed By: #### [id number] #### [facility] [address] [place] [address]FERNOSEAZNfkdlup By: Lab Deandre on 82-34-5383Toufyyf [Mass/Vol]157 mg/qFBeul35 - 99 mg/dLJIM TALIAFERR[facility] POC SubsectionComment on above:Result Comment: Notified RN/MDPOC Device [id number] 1Invalid Interpretation Code [facility] POC SubsectionPOC User [id number] 1Invalid Interpretation CodeFT[facility] POC SubsectionPOC UsernameTACSAY, MARIOInvalid Interpretation CodeFT POC SubsectionGlucose [Mass/Vol]178 mg/dHXcim22 - 99 mg/dLJIM [facility]ALIAFERR[facility] POC SubsectionComment on above:Result Comment: Notified RN/MDPOC Device [id number] 1Invalid Interpretation CodeFT[facility] POC SubsectionPOC User [id number] 1Invalid Interpretation CodeFT[facility] POC SubsectionPOC UsernamBALAJI LombardiICAInvalid Interpretation CodeFT[facility] POC SubsectionCHEMISTRYOrdered By: SYSTEM SYSTEM on 30-77-6449Wfllo gap [Moles/Vol]12 mmol/LNormal6 - 16 mEq/LRemisol ChemBeta HB Qnt0.40 mmol/LHigh0.02 - 0.27 mmol/LRemisol ChemCalcium [Mass/Vol]8.0 mg/dLLow 8.9 - 11.1 mg/dLRemisol ChemChloride [Moles/Vol]109 mmol/NSjejgw437 - 111 mmol/L Remisol ChemCO2 [Moles/Vol]21 mmol/QFqblpc19 - 31 mmol/LRemisol ChemCreatinine [Mass/Vol]0.5 mg/dLNormal0.5 - 1.3 mg/dLRemisol QykhdTAX91 mL/min/1.73 t2Vgemka >=59mL/min/1.73 d6Xkcoman ChemGlucose [Mass/Vol]131 mg/vTFputcm15 - 199 mg/dL Remisol ChemMagnesium [Mass/Vol]1.8 mg/dLNormal1.3 - 2.4 mg/dLRemisol Chem Phosphate [Mass/Vol]2.1 mg/dLNormal1.9 - 4.6 mg/dLRemisol ChemPotassium [Moles/Vol]3.5 mmol/LNormal3.5 - 5.3 mmol/LRemisol ChemSodium [Moles/Vol]138 mmol/REwnwat010 - 145 mmol/LRemisol ChemUrea nitrogen [Mass/Vol]11 mg/dLNormal5 - 21 mg/dLRemisol ChemUrea nitrogen/Creatinine [Mass ratio]22 mg/nmHsfp47 - 20 Remisol ChemCapillary Glucose POCon 07-74-0682Fbvfnrc [Mass/Vol]157 mg/dLHigh 55-99[facility] HospitalComment on above:Result Comment: Notified RN/ Performed By: #### [id number] #### [facility] [address], [place] [address]Wgpuxoc [Mass/Vol]178 mg/oXYygk86-23NoxyhpCleveland Clinic Fairview Hospital Comment on above:Result Comment: Notified RN/MDPerformed By: #### [id number] #### [facility] [address], [place] [address]Tkamzfa [Mass/Vol]213 mg/oUNfns56-80CgnnuqCleveland Clinic Fairview Hospital Comment on above:Result Comment: Notified RN/MDPerformed By: #### [id number] #### [facility] [address], [place] [address]Gjvpkew [Mass/Vol]126 mg/tGSmey19-37OylqlvCleveland Clinic Fairview Hospital Comment on above:Result Comment: Notified RN/MDPerformed By: #### [id number] #### [facility] [address], [place] [address]Zpvotsn [Mass/Vol]163 mg/rTMyfc85-68SnnmzvCleveland Clinic Fairview Hospital Comment on above:Result Comment: Notified RN/MDPerformed By: #### [id number] #### [facility] [address], [place] [address]EBJGFLLYYZTavdbro By: SYSTEM SYSTEM on 57-62-5498Hmghpialk/100 WBC (Bld)0.7 %Normal0.0 - 2.0 %Remisol HemeBasophils/Leukocytes Auto (Bld) [Pure # fraction]0.1 E9/LNormal0.0 - 0.2 E9/LRemisol HemeEosinophils (Bld) [#/Vol]0.2 E9/LNormal0.0 - 0.5 E9/LRemisol HemeEosinophils/100 WBC (Bld)3.1 %Normal0.0 - 8.0 %Remisol HemeErythrocyte distribution width (RBC) [Ratio]13.7 %Zyrrlv81.9 - 14.2 %Remisol HemeHematocrit (Bld) [Volume fraction]37.6 %Hvepgs11.0 - 46.0 % Remisol HemeHemoglobin (Bld) [Mass/Vol]12.6 g/nGWaohrq39.0 - 16.0 gm/dLRemisol HemeLymphocytes (Bld) [#/Vol]1.9 E9/LNormal1.0 - 4.0 E9/LRemisol Heme Lymphocytes/100 WBC (Bld)26.3 %Jmoyoy50.0 - 50.0 %Remisol HemeMCH (RBC) [Entitic mass]32.2 fpBumsxa74.0 - 34.0 pgRemisol HemeMCHC (RBC) [Mass/Vol]33.6 g/dL Tkkght08.4 - 36.0 gm/dLRemisol HemeMCV (RBC) [Entitic vol]95.8 iATekeip43.0 - 100.0 fLRemisol HemeMonocytes (Bld) [#/Vol]0.9 E9/LNormal0.2 - 1.0 E9/LRemisol HemeMonocytes/100 WBC (Bld)12.4 %Normal4.0 - 14.0 %Remisol HemeNeutrophils (Bld) [#/Vol]4.2 E9/LNormal2.0 - 7.5 E9/LRemisol HemeNeutrophils/100 WBC (Bld)57.5 % Llpyok38.0 - 75.0 %Remisol EebhFytkuzok236.0 E9/FLgbali898.0 - 500.0 E9/LRemisol HemePlatelet mean volume (Bld) [Entitic vol]10.5 fLNormal6.4 - 10.8 fLRemisol HemeRBC (Bld) [#/Vol]3.9 E12/LLow4.3 - 5.9 E12/LRemisol HemeWBC corrected for nucl RBC Auto (Bld) [#/Vol]7.4 E9/LNormal4.0 - 11.0 E9/LRemisol Heme Interdisciplinary Note - Case Manageron 30-86-7226Afdhifnrbrdyqyuyf Note - Case ManagerInterdisciplinary Note - Shelter Supervisor CRM to room to discuss DC planning. Patient is awake , alert and oriented. Patient daughter Citlalli is present in room. Patient is from home. Patient PCP, DME and insurance has been verified on admit. Patient is an inpatient for Small Bowel Obstruction. Patient signed medicare form 06/18. Patient is assigned to Trauma Team. Goal is to advance diet, work with PT. Patient is [facility] with [facility]. Patient was here 06/16 with previous recs of HH. Patient was provided contact info, white board updated. CRM [facility] Comment on above:Result Comment: Electronically Signed By: Carmen Gallegos\.yonis\Date and Time Signed: 06/20/24 08:58 EDTInterdisciplinary Note - OTon 49-80-0823Bwmldmuzzwrbazjpk Note - OTInterdisciplinary Note - OT OT AM-PAC six clicks score: =HH services. Pt completes ADL functional transfers including commode transfer CGA using FWW and lower body dressing with CGA post toileting. Pt presents with fatiguepost ADL tasks and transfers at time of eval. OT to return 3x/wk M,W,F progressing as tolerates. HHrecommended at this time for safety and to review DME.NormalCleveland Clinic Fairview Hospital Magnesiumon 50-91-7408Szwcyjcko [Mass/Vol]1.8 mg/dLNormal1.3-2.4FThe MetroHealth SystemComment on above:Performed By: #### [id number] #### [facility] [address], [place] [address]Dwzafcxyzudq 96-06-3104Bjngruupl [Mass/Vol]2.1 mg/dLNormal 1.9-4.6FThe MetroHealth SystemComment on above:Performed By: #### [id number] #### [facility] [address], [place] [address]mBMRmk 12-70-0971nAMG44 mL/min/1.73 t6Blbsfc>=59[facility] HospitalComment on above:Order Comment: Order added by Discern Expert. Performed By: #### [id number] #### [facility] [address], [place] [address]NMYpi 73-40-3921Ebdrw gap [Moles/Vol]14 mmol/LNormal6-16[facility] HospitalComment on above:Performed By: #### [id number] #### [facility] [address], [place] [address]Upsijcw [Mass/Vol]8.5 mg/dLLow8.9-11.1FThe MetroHealth SystemComment on above:Performed By: #### [id number] #### [facility] [address], [place] [address]Mrpnupso [Moles/Vol]103 mmol/PWhjxcw511-847TvoqqnCleveland Clinic Fairview HospitalComment on above:Performed By: #### [id number] #### [facility] [address], [place] [address]SI0 [Moles/Vol]23 mmol/ZXshmry29-52KgkgfzCleveland Clinic Fairview Hospital Comment on above:Performed By: #### [id number] #### [facility] [address], [place] [address]Rschpyvcbg [Mass/Vol]0.7 mg/dLNormal0.5-1.3FThe MetroHealth SystemComment on above:Performed By: #### [id number] #### [facility] [address], [place] [address]Tfyaecy [Mass/Vol]113 mg/lRRpwobk44-334EkqmedCleveland Clinic Fairview HospitalComment on above:Performed By: #### [id number] #### [facility] [address], [place] [address]Ejlhiayus [Moles/Vol]3.2 mmol/LLow3.5-5.3FThe MetroHealth SystemComment on above:Performed By: #### [id number] #### [facility] [address], [place] [address]Gerxcx [Moles/Vol]137 mmol/DYbphpr661-037AsvbnmCleveland Clinic Fairview HospitalComment on above:Performed By: #### [id number] #### [facility] [address], [place] [address]Mpyc nitrogen [Mass/Vol]15 mg/dLNormal5-21[facility] HospitalComment on above:Performed By: #### [id number] #### [facility] [address], [place] [address]Mbhb nitrogen/Creatinine [Mass ratio]21 No SosajAsdv75-99IoeolsCleveland Clinic Fairview HospitalComment on above:Performed By: #### [id number] #### [facility] [address], [place] [address]ALQTsl 64-05-3302Mnbi HB Qnt1.99 mmol/LHigh0.02-0.27[facility] HospitalComment on above:Performed By: #### [id number] #### [facility] [address], [place] [address]YEH w/ Auto Diffon 18-09-2460Lblgjinld/100 WBC (Bld)0.3 %Normal 0.0-2.0[facility] HospitalComment on above:Performed By: #### [id number] #### [facility] [address] [place] [address]Xqxdilflm/Leukocytes Auto (Bld) [Pure # fraction]0.0 E9/LNormal 0.0-0.2FThe MetroHealth SystemComment on above:Performed By: #### [id number] #### [facility] [address] [place] [address]Fmycdfbylgk (Bld) [#/Vol]0.0 E9/LNormal0.0-0.5FThe MetroHealth SystemComment on above:Performed By: #### [id number] #### [facility] [address] [place] [address]Vsduxzxizrp/100 WBC (Bld)0.4 %Normal0.0-8.0[facility] HospitalComment on above:Performed By: #### [id number] #### [facility] [address] [place] [address]Xmkeucosxkh distribution width (RBC) [Ratio]13.6 %Normal 10.9-14.2FThe MetroHealth SystemComment on above:Performed By: #### [id number] #### [facility] [address] [place] [address]Qjhmizwwkg (Bld) [Volume fraction]41.1 %Ifwwlq95.0-46.0[facility] HospitalComment on above:Performed By: #### [id number] #### [facility] [address] [place] [address]Vwvvjerutx (Bld) [Mass/Vol]14.0 g/uXLaiqoy65.0-16.0[facility] HospitalComment on above:Performed By: #### [id number] #### [facility] [address] [place] [address]Fwxjlvpesuu (Bld) [#/Vol]1.2 E9/LNormal1.0-4.0[facility] HospitalComment on above:Performed By: #### [id number] #### [facility] [address] [place] [address]Wyebebhoajc/100 WBC (Bld)14.4 %Lzjcbe95.0-50.0[facility] HospitalComment on above:Performed By: #### [id number] #### [facility] [address] [place] [address]SGF (RBC) [Entitic mass]32.1 kzZvmbnd20.0-34.0[facility] HospitalComment on above:Performed By: #### [id number] #### [facility] [address] [place] [address]LPEO (RBC) [Mass/Vol]34.0 g/zBPjjjlq99.4-36.0[facility] HospitalComment on above:Performed By: #### [id number] #### [facility] [address] [place] [address]TTS (RBC) [Entitic vol]94.6 rJXkqgee02.0-100.0[facility] HospitalComment on above:Performed By: #### [id number] #### [facility] [address] [place] [address] 19967Sbljkizkp (Bld) [#/Vol]0.8 E9/LNormal0.2-1.0[facility] HospitalComment on above:Performed By: #### [id number] #### [facility] [address] [place] [address] 82599Umptcjfbdul (Bld) [#/Vol]6.3 E9/LNormal2.0-7.5FThe MetroHealth SystemComment on above:Performed By: #### [id number] #### [facility] [address] [place] [address] 21329Usratzeckyt/100 WBC (Bld)74.9 %Tvkovy07.0-75.0[facility] HospitalComment on above:Performed By: #### [id number] #### [facility] [address] [place], [place] [address]Skremqhw708.0 E9/CCjgaad336.0-500.0[facility] Comment on above:Performed By: #### [id number] #### [facility] [address] [place] [address] 32030Glkouglv mean volume (Bld) [Entitic vol]9.6 fLNormal6.4-10.8 [facility] HospitalComment on above:Performed By: #### [id number] #### [facility] [address] [place] [address] 13888NPQ (Bld) [#/Vol]4.3 E12/LNormal4.3-5.9[facility] HospitalComment on above:Performed By: #### [id number] #### [facility] [address] [place] [address] 24410PVW corrected for nucl RBC Auto (Bld) [#/Vol]8.4 E9/LNormal 4.0-11.0[facility] HospitalComment on above:Performed By: #### [id number] #### [facility] [address] [place] [address] 93869XOWAQSIWKEyeakkw By: SYSTEM SYSTEM on 79-54-0154Buhud gap [Moles/Vol]14 mmol/LNormal6 - 16 mEq/LRemisol ChemBeta HB Qnt1.99 mmol/LHigh0.02 - 0.27 mmol/LRemisol ChemCalcium [Mass/Vol]8.5 mg/dLLow8.9 - 11.1 mg/dLRemisol ChemChloride [Moles/Vol]103 mmol/HEgdvgf393 - 111 mmol/LRemisol ChemCO2 [Moles/Vol]23 mmol/KWutkdu18 - 31 mmol/LRemisol ChemCreatinine [Mass/Vol]0.7 mg/dLNormal0.5 - 1.3 mg/dLRemisol FlhncSXK81 mL/min/1.73 a6Hikqqu>=59mL/min/1.73 f5Asydvhy ChemGlucose [Mass/Vol]113 mg/xWBmglcn43 - 199 mg/dLRemisol Chem Potassium [Moles/Vol]3.2 mmol/LLow3.5 - 5.3 mmol/LRemisol ChemSodium [Moles/Vol] 137 mmol/ZJwdwei443 - 145 mmol/LRemisol ChemUrea nitrogen [Mass/Vol]15 mg/dL Normal5 - 21 mg/dLRemisol ChemUrea nitrogen/Creatinine [Mass ratio]21 mg/mgHigh 10 - 20Remisol ChemCT Abdomen/Pelvis w/ Contraston [id number] Abdomen/Pelvis w/ ContrastExam Date/Time: 06/18/2024 18:21 EDT Reason for Exam: ABDOMINAL PAIN, ACUTE, NONLOCALIZED;Other (please specify) Report IMPRESSION: No acute process in the abdomen/pelvis. Currently, no evidence for small bowel obstruction. Chronic findings as discussed. EXAMINATION: CT Abdomen/Pelvis w/ Contrast HISTORY: Recently discharged after admission for small bowel obstruction. Vomiting. History of bladder surgery. History of pancreatic mass. TECHNIQUE: CT of the abdomen and pelvis was performed using standard technique with intravenous contrast, scanning from just above the dome of the diaphragm to the symphysis pubis. Including delayed images through the kidneys. Including sagittal and coronal reconstructions on both phases. Unless otherwise stated, incidental findings identified in this report do not require routine follow-up imaging. All CT scans at this facility use dose modulation, iterative reconstruction, and/or weight based dosing when appropriate to reduce radiation dose to as low as reasonably achievable. COMPARISON: 06/15/2024. RESULT: Liver: The 2.0 cm hypervascular lesion within the right hepatic lobe on the CT 06/15/2024 is not well-visualized on this study, likely secondary to contrast timing, and characterized as probable hemangioma on the recent prior study. No new liver lesions. Biliary: Layering hyperdensity within the gallbladder, new from 06/15/2024, and probably representing vicarious excretion of contrast with differential also including biliary sludge. Gallbladder otherwise unremarkable. No bile duct dilation. Pancreas: Distal pancreatectomy, similar to prior. No suspicious lesions of the residual pancreas. No pancreatic duct dilation. Spleen: Splenectomy. Adrenals: No mass. Kidneys: No calculus or hydronephrosis. No suspicious renal lesions. 1.0 cm simple Report nonenhancing right lower pole cyst. Delayed phase images unremarkable. GI tract: Compared to 06/15/2024, interval resolution of the small bowel dilation. Currently, no significant dilated loops of small bowel. Fluid present within the partially decompressed stomach. Contrast present within the colon, likely residual contrast from the recent small bowel series. Diverticulosis, without evidence for acute diverticulitis. No pneumatosis. Appendix not well-visualized, no secondary findings of appendicitis. Lymph nodes: No abdominal or pelvic lymphadenopathy. Mesentery/Peritoneum/Retroperitoneum: No ascites or mass. No pneumoperitoneum. Vasculature: The celiac axis and SMA are patent. The portal vein and branches, splenic vein, SMV, and hepatic veins are patent. Diffuse vascular calcifications. No aortic aneurysm. Pelvis: Bladder decompressed and not well evaluated. No significant free fluid. Uterus unremarkable. Trace fat right inguinal ring. Bones: No acute osseous findings. Underlying decreased bone mineral density. Multilevel degenerative changes similar to prior. Chronic moderate compression deformity with from prior vertebral body augmentation at T10. Soft tissues: Unremarkable. Lower thorax: Probable scarring/atelectasis, unchanged. Coronary calcifications. Ordering Provider: Jerrell Ramos FINAL REPORT Dictated: 06/19/2024 8:44 am Cesar Markham MD Signed (Electronic Signature): 06/19/2024 8:44 am Signed by: Cesar Markham MD Transcribed by: KATHLEEN Technologist: CARLOS ENRIQUE Technical Comments GFR (mL/min/1/73m2) 72 Contrast: Isovue 300 Contrast amount in ml's: 100 Rectal Contrast Given? NoNormalCleveland Clinic Fairview HospitalCapillary Glucose POC on 86-84-7558Rczjkrc [Mass/Vol]180 mg/lHDbaz08-66HlmirlCleveland Clinic Fairview Hospital Comment on above:Result Comment: Notified RN/MDPerformed By: #### [id number] #### [facility] [address], [place] [address]Voucvoq [Mass/Vol]222 mg/wRDejn44-46QhuumbCleveland Clinic Fairview Hospital Comment on above:Result Comment: Notified RN/MDPerformed By: #### [id number] #### [facility] [address] [facility], [place] [address]Zjforoz [Mass/Vol]235 mg/lKAlqm55-54DonyuuCleveland Clinic Fairview Hospital Comment on above:Result Comment: Notified RN/MDPerformed By: #### [id number] #### [facility] [address] [facility] [address]Xnfkuwf [Mass/Vol]226 mg/gPHyqh17-10ZppwmoCleveland Clinic Fairview Hospital Comment on above:Result Comment: Notified RN/MDPerformed By: #### [id number] #### [facility] [address] [facility], [place] [address]Lrxhglr [Mass/Vol]124 mg/yFMria52-00CpznxuCleveland Clinic Fairview Hospital Comment on above:Result Comment: Notified RN/MDPerformed By: #### [id number] #### [facility] [address] [facility], [place] [address]Rvkutln [Mass/Vol]119 mg/rZGimg72-86PntgegCleveland Clinic Fairview Hospital Comment on above:Result Comment: Notified RN/MDPerformed By: #### [id number] #### [facility] [address] [facility], [place] [address]Hnwkfmw [Mass/Vol]245 mg/iFBmaz60-62ZckbpdCleveland Clinic Fairview Hospital Comment on above:Result Comment: Notified RN/MDPerformed By: #### [id number] #### [facility] [address] [place], [place] [address]Ubakses [Mass/Vol]54 mg/lUWde33-40DotucnCleveland Clinic Fairview Hospital Comment on above:Result Comment: Notified RN/MDPerformed By: #### [id number] #### [facility] [address] [facility], [place] [address]BI Note-Physicianon [id number] Note-PhysicianED Note-Physician Basic Information Time Seen: Jerrell Ramos DO 06/18/2024 17:03 Chief Complaint pt d/c'd today with dx of SBO, states she was able to eat today and keep food down, got into the car and starting to vomiting, has had 4 episodes since dc. Deneis any abd pain. per family pt BP has been hgih her entire hospital visit. History of Present Illness 83-year-old female to the emergency department chief complaint of vomiting. Patient was recently hospitalized with a small bowel obstruction. After discharge she had 4 episodes of emesis. She denies any pain at this time. She denies any fever, sweats, chills. Review of Systems A 10 point review of systems is negative except as noted above. Medical and Surgical History: Reviewed and noted Social history: Lives at home Tobacco: Denies Physical Exam Vitals & Measurements T: 36.4 ?C(Oral) HR: 68(Peripheral) RR: 17 BP: 148/76 SpO2: 96% HT: 152 cm WT: 60 kg BMI: 25.97 VITALS: I have reviewed the triage vital signs. GENERAL: Well developed, well appearing adult in no acute distress. NEURO: Alert and oriented. Moves all extremities. Face is symmetric and expressive. EYES: PERRL. No scleral icterus or conjunctival injection. No discharge. HENT: Normocephalic, atraumatic. Hearing is grossly intact. Nares grossly patent and without discharge. Mucous membranes moist. NECK: No JVD. Patient moves neck without restriction. CARDIO: Rhythm regular. Normal rate. No murmur, rub, or gallop. Pulses equal bilaterally in the upper and lower extremity. No lower extremity edema. PULM: Lungs clear to auscultation in all marshall. No wheezes, rales, or rhonchi. No conversational dyspnea. No splinting, stridor, or accessory muscle use. GI/: Abdomen is soft and non-tender. Normoactive bowel sounds. EXTREMITIES: Symmetric muscle bulk. No joint swelling. No clubbing, cyanosis, or deformity. SKIN: Warm and dry. Normal turgor. No rash or lesions appreciated. PSYCH: Mood, affect, and interaction is appropriate to the setting. Medical Decision Making 83-year-old female to the emergency department chief complaint of vomiting after discharge home. Vital stable, the patient is afebrile. Her abdominal examination is benign. Zofran, fluids were ordered. Basic labs. Will repeat CT scan. Emergency general surgeon Dr. Morfin was consulted and agrees with this plan. Care signed out to Dr. Linares. Assessment/Plan Nausea & vomiting (R11.2: Nausea with vomiting, unspecified) Orders: ondansetron, 4 mg = 2 mL, Injection, IV Push, Once, Stop date 06/18/24 17:12:00 EDT, STAT, Start date 06/18/24 17:12:00 EDT, 06/18/24 17:12:00 EDT Sodium Chloride 0.9% intravenous solution 1,000 mL, 1,000 mL, IV, 125 mL/hr, STAT, Start date 06/18/24 17:12:00 EDT, 8 hour(s), Total volume (mL): 1,000, 60 kg, 1.59, m2 Basic Metabolic Panel CBC w/ Auto Diff CT Abdomen/Pelvis w/ Contrast ECG 12 Lead Adult ED Cardiac Monitoring eGFR Extra Blue Tube Hepatic Function Panel Lipase Level Saline Lock Insert UA with Cult Rflx Medications Administered Given Sodium Chloride 0.9% IV Lakia 1000 mL 1,000 mL, 1000 mL, IV hydrALAZINE 20 mg/mL Inj, 10 mg, IV Push ondansetron 4 mg/2 mL Inj, 4 mg, IV Push Disposition Plan Patient Discharge Condition Stable Discharge Prescription List Prescriptions No active prescription medications Follow-up No qualifying data available Problem List/Past Medical History Ongoing Anxiety Dizziness 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 Medications Inpatient Sodium Chloride 0.9% IV Lakia 1000 mL 1,000 mL, 1000 mL, IV Home Albuterol (Eqv-ProAir HFA) 90 mcg/inh inhalation aerosol, See Instructions, Not taking aspirin 81 mg Chew Tab, 81 mg= 1 tab(s), Oral, Daily atorvastatin 10 mg Tab, 10 mg= 1 tab(s), Oral, Bedtime, 3 refills BD UF Nanno pen needle 4mm x32G, See Instructions, 3 refills BLOOD GLUCOSE METER TEST STRIPS, See Instructions, 11 refills Blood Pressure Monitor, See Instructions, Not taking: trying to get oneand hasn't gotten it yet Diflucan 150 mg Tab, 150 mg= 1 tab(s), Oral, Once, Not taking Freestyle Eduar 2 Flash Glucose Monitoring 14 Day System ([place]), See Instructions Freestyle Eduar 2 Flash Glucose Monitoring 14 Day System (Sensor), See Instructions Freestyle Eduar 2 sensor, See Instr (more content not included)...[facility] HospitalComment on above:Result Comment: Electronically Signed By: Jerrell Ramos DO.br\Date and Time Signed: 06/19/24 06:55 EDTHEMATOLOGYOrdered By: SYSTEM SYSTEM on 77-87-6981Fispldsgy/100 WBC (Bld)0.3 %Normal0.0 - 2.0 % Remisol HemeBasophils/Leukocytes Auto (Bld) [Pure # fraction]0.0 E9/LNormal0.0 - 0.2 E9/LRemisol HemeEosinophils (Bld) [#/Vol]0.0 E9/LNormal0.0 - 0.5 E9/LRemisol HemeEosinophils/100 WBC (Bld)0.4 %Normal0.0 - 8.0 %Remisol HemeErythrocyte distribution width (RBC) [Ratio]13.6 %Unnlri78.9 - 14.2 %Remisol HemeHematocrit (Bld) [Volume fraction]41.1 %Mbhhyq94.0 - 46.0 %Remisol HemeHemoglobin (Bld) [Mass/Vol]14.0 g/tKBnsqds21.0 - 16.0 gm/dLRemisol HemeLymphocytes (Bld) [#/Vol] 1.2 E9/LNormal1.0 - 4.0 E9/LRemisol HemeLymphocytes/100 WBC (Bld)14.4 %Normal 14.0 - 50.0 %Remisol HemeMCH (RBC) [Entitic mass]32.1 sdEztcyy63.0 - 34.0 pg Remisol HemeMCHC (RBC) [Mass/Vol]34.0 g/yVHynlnx27.4 - 36.0 gm/dLRemisol HemeMCV (RBC) [Entitic vol]94.6 bAUsmqav04.0 - 100.0 fLRemisol HemeMonocytes (Bld) [#/Vol]0.8 E9/LNormal0.2 - 1.0 E9/LRemisol HemeMonocytes/100 WBC (Bld)10.0 % Normal4.0 - 14.0 %Remisol HemeNeutrophils (Bld) [#/Vol]6.3 E9/LNormal2.0 - 7.5 E9/LRemisol HemeNeutrophils/100 WBC (Bld)74.9 %Mbqmlx13.0 - 75.0 %Remisol Heme Rnryiwlk662.0 E9/TNachiq206.0 - 500.0 E9/LRemisol HemePlatelet mean volume (Bld) [Entitic vol]9.6 fLNormal6.4 - 10.8 fLRemisol HemeRBC (Bld) [#/Vol]4.3 E12/L Normal4.3 - 5.9 E12/LRemisol HemeWBC corrected for nucl RBC Auto (Bld) [#/Vol] 8.4 E9/LNormal4.0 - 11.0 E9/LRemisol HemeInpatient Clinical Summaryon 06-19-2024 Inpatient Clinical SummaryInpatient Clinical Summary [address] [address] Clinical Summary Person Information: Name: MICHELLE NASH Age: 83 Years : 1940 Sex: Female PCP: Natacha Oneill MD Marital Status: Phone: [phone] Race: White Ethnicity: Non- or Language: Pakistani Visit Id: Visit Reason: Vomiting; Nausea; Abdominal pain; N/V ABD PAIN Speciality: Acuity: Enc Type: Inpatient Med Service: Medical Arrival: 06/15/2024 14:55:19 Discharge: 06/18/2024 14:30:00 Dispo Type: Home w/ Home Health Address: [address] [place] [phone] Provider Notes: Diagnosis: 1:SBO (small bowel obstruction) Problems Active Dizziness UTI symptoms Major depressive disorder, recurrent, in full remission Long-term insulin use Type 2 diabetes mellitus with 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 HTN (hypertension) HLD (hyperlipidemia) Malnutrition Pitting edema Shoulder pain, right Multiple falls Interstitial lung disease Weakness Former smoker Hyponatremia Anxiety GERD (gastroesophageal reflux disease) OAB (overactive bladder) Hypovitaminosis D Osteopenia Smoking Status: Former Smoker Functional Status: Sensory Deficits: History of Falls: Within last three months Mobility Assistance Prior to Admission: Independent ADLs: Independent Current Level of Assistance for Self-Care/Mobility: Cognitive Status: Oriented x 3 Allergies No Known Medication Allergies Measurements: Height: 152.40 cm Weight: 56.2 kg Blood Pressure: 195 mmHg / 79 mmHg BMI: 25.23 kg/m2 Procedures No Procedures Documented Immunizations No Immunizations Documented This Visit Final Med List: albuterol (Albuterol (Eqv-ProAir HFA) 90 mcg/inh inhalation aerosol) INHALE 2 PUFFS BY MOUTH EVERY 6 HOURS. Refills: 0. aspirin (aspirin 81 mg Chew Tab) 1 Tablets By Mouth every day. atorvastatin (atorvastatin 10 mg Tab) 1 Tablets By Mouth at bedtime. Refills: 3. budesonide-formoterol (Symbicort 160/4.5 inhalation aerosol with adapter) 2 Puffs Inhalation 2 times a day. Refills: 0. cholecalciferol (Vitamin D 1000 intl units (25 mcg) Tab) 3 Tablets By Mouth every day. empagliflozin (Jardiance 10 mg oral tablet) TAKE 1 TABLET BY MOUTH EVERY MORNING. Refills: 3. fluconazole (Diflucan 150 mg Tab) 1 Tablets By Mouth Once. Refills: 0. insulin glargine (Lantus Solostar Pen 100 units/mL subcutaneous solution) INJECT 10 UNITS SUBCUATANEOUSLY TWICE A DAY. Refills: 1. insulin lispro (HumaLOG KwikPen 100 units/mL injectable solution) TID AC MEALS 150-200 2U, 201-250 4U, 251-300 6U, 301-350 8U,351-400 10U, > 401 12U AND CALL PCP. Refills: 0. losartan (losartan 50 mg Tab) TAKE 1 TABLET BY MOUTH DAILY. Refills: 3. Misc Prescription (BD UF Nanno pen needle 4mm x32G) Use one pen needle with each administration of lantus BID and humalog TID. Dx E11.9. Refills: 3. Misc Prescription (BLOOD GLUCOSE METER TEST STRIPS) BLOOD GLUCOSE METER TEST STRIPS OF CHOICE, OR SPECIFIED BY INSURANCE. USE WITH METER ONCE DAILY. DX E11.9. Refills: 11. Misc Prescription (Blood Pressure Monitor) Arm BP monitor. Refills: 0. Misc Prescription (Freestyle Eduar 2 Flash Glucose Monitoring 14 Day System ([place])) Freestyle Eduar Flash Glucose Monitoring 14 Day System ([place]). Refills: 0. Misc Prescription (Freestyle Eduar 2 Flash Glucose Monitoring 14 Day System (Sensor)) Freestyle Eduar Flash Glucose Monitoring 14 Day System (Sensor). Replace sensor every 14 days.. Refills: 0. Misc Prescription (Freestyle Eduar 2 sensor) Free style Eduar 2. Refills: 1. Misc Prescription (Glucose Kit) Glucose meter. Include autolet, matching test strips, lancets, & alcohol wipes, #100 or as allowed by insurance; DX: E11.9. Refills: 0. Misc Prescription (LANCETS OF CHOICE OR SPECIFIED BY INSURANCE.) USE TO TEST BLOOD GLUCOSE ONCE DAILY FOR DX E11.9. Refills: 11. Misc Prescription (Pen [place]) To be used with giving insulin TID. Dx: E11.65. Refills: 3. multivitamin 1 Tablets By Mouth every day. multivitamin with minerals (PreserVision AREDS) Take one daily. omeprazole (omeprazole 20 mg Cap-DR) 1 Capsules By Mouth every day. propranolol (propranolol 60 mg oral tablet) 1 Tablets By Mouth at bedtime. Refills: 3. tizanidine (tizanidine 4 mg oral capsule) 1 Capsules By Mouth at bedtime. trazodone (traZODONE 50 mg Tab) TAKE 1/2 TABLET BY MOUTH ONCE DAILY AT BEDTIME. Refills: 1. Care Team Members: Attending Physician: Navjot VALENTINE, Mariann Reece Consulting Physician: Referring Physician: Follow up: With: Address: When: trauma clinic [address] [place] [address]. [address] (2nd floor) [place], [place] [address] , only if needed Comments: Only if questions or concerns With: Address: When: Natacha Oneill Comments: to monitor hypertension T (more content not included)...NormalFisher Dalton Medical CenterInpatient Clinical SummaryInpatient Clinical Summary [address] [address] Clinical Summary Person Information: Name: MICHELLE NASH Age: 83 Years : 1940 Sex: Female PCP: Natacha Oneill MD Marital Status: Phone: [phone] Race: White Ethnicity: Non- or Language: Pakistani Visit Id: Visit Reason: Nausea and vomiting; SMALL BOWL OBSTRUCTION Speciality: Acuity: Enc Type: Inpatient Med Service: Medical Arrival: 06/18/2024 16:57:00 Discharge: Dispo Type: Admitted as IP to this Hosp Address: [address] [place] [phone] Provider Notes: Diagnosis: Nausea & vomiting Problems Active Dizziness UTI symptoms Major depressive disorder, recurrent, in full remission Long-term insulin use Type 2 diabetes mellitus with 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 HTN (hypertension) HLD (hyperlipidemia) Malnutrition Pitting edema Shoulder pain, right Multiple falls Interstitial lung disease Weakness Former smoker Hyponatremia Anxiety GERD (gastroesophageal reflux disease) OAB (overactive bladder) Hypovitaminosis D Osteopenia Smoking Status: Former Smoker Functional Status: Sensory Deficits: History of Falls: Mobility Assistance Prior to Admission: ADLs: Independent Current Level of Assistance for Self-Care/Mobility: Cognitive Status: Oriented x 3 Allergies No Known Medication Allergies Measurements: Height: 152.40 cm Weight: 63.0 kg Blood Pressure: 178 mmHg / 71 mmHg BMI: 24.5 kg/m2 Procedures No Procedures Documented Immunizations No Immunizations Documented This Visit Final Med List: albuterol (Albuterol (Eqv-ProAir HFA) 90 mcg/inh inhalation aerosol) INHALE 2 PUFFS BY MOUTH EVERY 6 HOURS. Refills: 0. aspirin (aspirin 81 mg Chew Tab) 1 Tablets By Mouth every day. atorvastatin (atorvastatin 10 mg Tab) 1 Tablets By Mouth at bedtime. Refills: 3. budesonide-formoterol (Symbicort 160/4.5 inhalation aerosol with adapter) 2 Puffs Inhalation 2 times a day. Refills: 0. cholecalciferol (Vitamin D 1000 intl units (25 mcg) Tab) 3 Tablets By Mouth every day. empagliflozin (Jardiance 10 mg oral tablet) TAKE 1 TABLET BY MOUTH EVERY MORNING. Refills: 3. fluconazole (Diflucan 150 mg Tab) 1 Tablets By Mouth Once. Refills: 0. insulin glargine (Lantus Solostar Pen 100 units/mL subcutaneous solution) INJECT 10 UNITS SUBCUATANEOUSLY TWICE A DAY. Refills: 1. insulin lispro (HumaLOG KwikPen 100 units/mL injectable solution) TID AC MEALS 150-200 2U, 201-250 4U, 251-300 6U, 301-350 8U,351-400 10U, > 401 12U AND CALL PCP. Refills: 0. losartan (losartan 50 mg Tab) TAKE 1 TABLET BY MOUTH DAILY. Refills: 3. Misc Prescription (BD UF Nanno pen needle 4mm x32G) Use one pen needle with each administration of lantus BID and humalog TID. Dx E11.9. Refills: 3. Misc Prescription (BLOOD GLUCOSE METER TEST STRIPS) BLOOD GLUCOSE METER TEST STRIPS OF CHOICE, OR SPECIFIED BY INSURANCE. USE WITH METER ONCE DAILY. DX E11.9. Refills: 11. Misc Prescription (Blood Pressure Monitor) Arm BP monitor. Refills: 0. Misc Prescription (Freestyle Eduar 2 Flash Glucose Monitoring 14 Day System ([place])) Freestyle Eduar Flash Glucose Monitoring 14 Day System ([place]). Refills: 0. Misc Prescription (Freestyle Eduar 2 Flash Glucose Monitoring 14 Day System (Sensor)) Freestyle Eduar Flash Glucose Monitoring 14 Day System (Sensor). Replace sensor every 14 days.. Refills: 0. Misc Prescription (Freestyle Eduar 2 sensor) Free style Eduar 2. Refills: 1. Misc Prescription (Glucose Kit) Glucose meter. Include autolet, matching test strips, lancets, & alcohol wipes, #100 or as allowed by insurance; DX: E11.9. Refills: 0. Misc Prescription (LANCETS OF CHOICE OR SPECIFIED BY INSURANCE.) USE TO TEST BLOOD GLUCOSE ONCE DAILY FOR DX E11.9. Refills: 11. Misc Prescription (Pen [place]) To be used with giving insulin TID. Dx: E11.65. Refills: 3. multivitamin 1 Tablets By Mouth every day. multivitamin with minerals (PreserVision AREDS) Take one daily. omeprazole (omeprazole 20 mg Cap-DR) 1 Capsules By Mouth every day. propranolol (propranolol 60 mg oral tablet) 1 Tablets By Mouth at bedtime. Refills: 3. tizanidine (tizanidine 4 mg oral capsule) 1 Capsules By Mouth at bedtime. trazodone (traZODONE 50 mg Tab) TAKE 1/2 TABLET BY MOUTH ONCE DAILY AT BEDTIME. Refills: 1. Care Team Members: Attending Physician: Mariann Morfin MD Consulting Physician: Referring Physician: Follow up: Type Location Start Finish State FM Open [facility] 07/06/2024 10:45 AM 07/06/2024 11:00 AM Confirmed Medicare Wellness Subsequent [facility] 08/08/2024 11:00 AM 08/08/2024 12:00 PM Confirmed Patient Education Information:[facility]In[facility] Patient Summaryon [id number] Patient SummaryInpatient Patient Summary [place] [id number] Patient Discharge Instructions PERSON INFORMATION Name: MICHELLE NASH Date of : 1940 Current Date: 06/19/2024 10:51:37 PHYSICIANS Admitting Physician: Mariann Morfin MD Primary Care Physician: Natacha Oneill MD PCP Comment: Discharge Diagnosis: 1:SBO (small bowel obstruction) Condition at Discharge: Improved MICHELLE NASH has been given the following list of follow-up instructions, prescriptions, and patient education materials: PATIENT FOLLOW-UP INFORMATION Diet: Regular Discharge Activity: Ambulate as tolerated Discharge Restrictions: No restrictions Wound Care Instructions: Remove Your Dressing In Days Call Your Doctor For: Persistent vomiting IF UNABLE TO CONTACT YOUR PHYSICIAN AND YOU FEEL IT IS AN EMERGENCY, GO TO THE NEAREST EMERGENCY ROOM OR CALL 911 Home Treatment: Devices/Equipment: Blood glucose monitor, Cane, Elevated toilet seat, Shower chair, Walker - front wheeled Special Services: Additional Instructions: as discussed, maintain a balanced diet with plenty of fluids, fiber, and try to ensure daily soft bowel movements. If constipated for more than 48 hours, take laxatives to assist with a bowel movement. If severe pain, vomiting, lack of appetite, return ED Primary Care Physician to provide the following pending test results: None Follow up: With: Address: When: trauma clinic [address] (2nd floor) [place], [place] [address] , only if needed Comments: Only if questions or concerns With: Address: When: Natacha Oneill Comments: to monitor hypertension In the event that this physician does not participate in your insurance network, please consult with your insurance company to find a nearby participating provider. Type Location Start Finish State FM Open [facility] Naty 07/06/2024 10:45 AM 07/06/2024 11:00 AM Confirmed FM Medicare Wellness Subsequent [facility] Naty 08/08/2024 11:00 AM 08/08/2024 12:00 PM Confirmed Comment: CHARITY Plummer CAROL A, have received the attached patient education materials/instructions and have verbalized understanding: Patient Signature Date Clinican/Nurse Signature Date HERE ARE THE MEDICATION CHANGES THAT OCCURRED DURING YOUR HOSPITAL STAY Medications to Continue with No Changes Other Medications albuterol (Albuterol (Eqv-ProAir HFA) 90 mcg/inh inhalation aerosol) INHALE 2 PUFFS BY MOUTH EVERY 6 HOURS. Refills: 0. Last Dose: Next Dose: aspirin (aspirin 81 mg Chew Tab) 1 Tablets By Mouth every day. Last Dose: Next Dose: atorvastatin (atorvastatin 10 mg Tab) 1 Tablets By Mouth at bedtime. Refills: 3. Last Dose: Next Dose: budesonide-formoterol (Symbicort 160/4.5 inhalation aerosol with adapter) 2 Puffs Inhalation 2 times a day. Refills: 0. Last Dose: Next Dose: cholecalciferol (Vitamin D 1000 intl units (25 mcg) Tab) 3 Tablets By Mouth every day. Last Dose: Next Dose: empagliflozin (Jardiance 10 mg oral tablet) TAKE 1 TABLET BY MOUTH EVERY MORNING. Refills: 3. Last Dose: Next Dose: fluconazole (Diflucan 150 mg Tab) 1 Tablets By Mouth Once. Refills: 0. Last Dose: Next Dose: insulin glargine (Lantus Solostar Pen 100 units/mL subcutaneous solution) INJECT 10 UNITS SUBCUATANEOUSLY TWICE A DAY. Refills: 1. Last Dose: Next Dose: insulin lispro (HumaLOG KwikPen 100 units/mL injectable solution) TID AC MEALS 150-200 2U, 201-250 4U, 251-300 6U, 301-350 8U,351-400 10U, > 401 12U AND CALL PCP. Refills: 0. Last Dose: Next Dose: losartan (losartan 50 mg Tab) TAKE 1 TABLET BY MOUTH DAILY. Refills: 3. Last Dose: Next Dose: Misc Prescription (BD UF Nanno pen needle 4mm x32G) Use one pen needle with each administration of lantus BID and humalog TID. Dx E11.9. Refills: 3. Last Dose: Next Dose: Misc Prescription (BLOOD GLUCOSE METER TEST STRIPS) BLOOD GLUCOSE METER TEST STRIPS OF CHOICE, OR SPECIFIED BY INSURANCE. USE WITH METER ONCE DAILY. DX E11.9. Refills: 11. Last Dose: Next Dose: Misc Prescription (Blood Pressure Monitor) Arm BP monitor. Refills: 0. Last Dose: Next Dose: Misc Prescription (Freestyle Eduar 2 Flash Glucose Monitoring 14 Day System ([place])) Freestyle Eduar Flash Glucose Monitoring 14 (more content not included)...[facility] [place] [id number] Patient Discharge Instructions PERSON INFORMATION Name: MICHELLE NASH Date of : 1940 Current Date: 06/19/2024 08:56:14 PHYSICIANS Admitting Physician: Navjot VALENTINE, Mariann Reece Primary Care Physician: Natahca Oneill MD PCP Comment: Discharge Diagnosis: Nausea & vomiting Condition at Discharge: MICHELLE NASH has been given the following list of follow-up instructions, prescriptions, and patient education materials: PATIENT FOLLOW-UP INFORMATION Diet: Discharge Activity: Discharge Restrictions: Wound Care Instructions: Remove Your Dressing In Days Call Your Doctor For: IF UNABLE TO CONTACT YOUR PHYSICIAN AND YOU FEEL IT IS AN EMERGENCY, GO TO THE NEAREST EMERGENCY ROOM OR CALL 911 Home Treatment: Devices/Equipment: None Special Services: Additional Instructions: Primary Care Physician to provide the following pending test results: Follow up: In the event that this physician does not participate in your insurance network, please consult with your insurance company to find a nearby participating provider. Type Location Start Finish State [facility] 10:45 AM 07/06/2024 11:00 AM Confirmed [facility] Well[facility] 11:00 AM 08/08/2024 12:00 PM Confirmed Comment: ICHARITY CAROL A, have received the attached patient education materials/instructions and have verbalized understanding: Patient Signature Date Clinican/Nurse Signature Date HERE ARE THE MEDICATION CHANGES THAT OCCURRED DURING YOUR HOSPITAL STAY Medications to Continue with No Changes Other Medications albuterol (Albuterol (Eqv-ProAir HFA) 90 mcg/inh inhalation aerosol) INHALE 2 PUFFS BY MOUTH EVERY 6 HOURS. Refills: 0. Last Dose: Next Dose: aspirin (aspirin 81 mg Chew Tab) 1 Tablets By Mouth every day. Last Dose: Next Dose: atorvastatin (atorvastatin 10 mg Tab) 1 Tablets By Mouth at bedtime. Refills: 3. Last Dose: Next Dose: budesonide-formoterol (Symbicort 160/4.5 inhalation aerosol with adapter) 2 Puffs Inhalation 2 times a day. Refills: 0. Last Dose: Next Dose: cholecalciferol (Vitamin D 1000 intl units (25 mcg) Tab) 3 Tablets By Mouth every day. Last Dose: Next Dose: empagliflozin (Jardiance 10 mg oral tablet) TAKE 1 TABLET BY MOUTH EVERY MORNING. Refills: 3. Last Dose: Next Dose: fluconazole (Diflucan 150 mg Tab) 1 Tablets By Mouth Once. Refills: 0. Last Dose: Next Dose: insulin glargine (Lantus Solostar Pen 100 units/mL subcutaneous solution) INJECT 10 UNITS SUBCUATANEOUSLY TWICE A DAY. Refills: 1. Last Dose: Next Dose: insulin lispro (HumaLOG KwikPen 100 units/mL injectable solution) TID AC MEALS 150-200 2U, 201-250 4U, 251-300 6U, 301-350 8U,351-400 10U, > 401 12U AND CALL PCP. Refills: 0. Last Dose: Next Dose: losartan (losartan 50 mg Tab) TAKE 1 TABLET BY MOUTH DAILY. Refills: 3. Last Dose: Next Dose: Misc Prescription (BD UF Nanno pen needle 4mm x32G) Use one pen needle with each administration of lantus BID and humalog TID. Dx E11.9. Refills: 3. Last Dose: Next Dose: Misc Prescription (BLOOD GLUCOSE METER TEST STRIPS) BLOOD GLUCOSE METER TEST STRIPS OF CHOICE, OR SPECIFIED BY INSURANCE. USE WITH METER ONCE DAILY. DX E11.9. Refills: 11. Last Dose: Next Dose: Misc Prescription (Blood Pressure Monitor) Arm BP monitor. Refills: 0. Last Dose: Next Dose: Misc Prescription (Freestyle Eduar 2 Flash Glucose Monitoring 14 Day System ([place])) Freestyle Eduar Flash Glucose Monitoring 14 Day System ([place]). Refills: 0. Last Dose: Next Dose: Misc Prescription (Freestyle Eduar 2 Flash Glucose Monitoring 14 Day System ([place])) Freestyle Eduar Flash Glucose Monitoring 14 Day System (Sensor). Replace sensor every 14 days.. Refills: 0. Last Dose: Next Dose: Misc Prescription (Freestyle Eduar 2 sensor) Free style Eduar 2. Refills: 1. Last Dose: Next Dose: Misc Prescription (Glucose Kit) Glucose meter. Include autolet, matching test strips, lancets, & alcohol wipes, #100 or as allowed by insurance; DX: E11.9. Refills: 0. Last Dose:____ (more content not included)...[facility] Interdisciplinary Note - Case Manageron [id number] Note - Case ManagerInterdisciplinary Note - Shelter Supervisor CRM spoke with patient and daughter Citlalli in room. Patient is alert and oriented and participates in discharge planning. Patient white board updated, and CRM contact information provided. Daughter states Dr Wallace saw patient earlier today and waiting CT results but does not think she has a bowel obstruction but N/V may be from a medication. Will try clear liquids today. Patient verified PCP, insurance and DME. Patient is form home with her spouse and family will transport at nd. Discussed PT had recommended H/H on Wednesday and she is agreeable to H/H for RN/PT. Discussed agencies and okay to [facility] or [facility] H/H. Will send referral. Reviewed Medicare rights, she denies any questions. Daughter states patient was only home for 1 hr when they had to brink her back d/t N/V yesterday.[facility] HospitalComment on above:Result Comment: Electronically Signed By: Jason RENEE, Shiloh\.br\Date and Time Signed: 06/19/24 09:35 EDTeGFRon [id number] mL/min/1.73 l4Zhurxs>=59[facility] HospitalComment on above:Order Comment: Order added by Discern Expert.Performed By: #### [id number] #### [facility] [address] [id number] 41-44-1802Wmkqh gap [Moles/Vol]17 mmol/LHigh6-16[facility] HospitalComment on above:Performed By: #### [id number] #### [facility] [address], [place] [address]Zfuwgou [Mass/Vol]9.7 mg/dLNormal8.9-11.1FThe MetroHealth SystemComment on above:Performed By: #### [id number] #### [facility] [address], [place] [address]Eucmqemt [Moles/Vol]97 mmol/LTal791-549LjyweaCleveland Clinic Fairview HospitalComment on above:Performed By: #### [id number] #### [facility] [address], [place] [address]KT4 [Moles/Vol]26 mmol/XDctpce61-38CplmzjCleveland Clinic Fairview Hospital Comment on above:Performed By: #### [id number] #### [facility] [address], [place] [address]Hqscphtvao [Mass/Vol]0.8 mg/dLNormal0.5-1.3FThe MetroHealth SystemComment on above:Performed By: #### [id number] #### [facility] [address], [place] [address]Aibiasq [Mass/Vol]102 mg/vBSpzzrz45-486OyjyxyCleveland Clinic Fairview HospitalComment on above:Performed By: #### [id number] #### [facility] [address], [place] [address]Wllxuudqy [Moles/Vol]3.9 mmol/LNormal3.5-5.3FThe MetroHealth SystemComment on above:Performed By: #### [id number] #### [facility] [address], [place] [address]Mlextg [Moles/Vol]136 mmol/KLepesa177-664AwikavCleveland Clinic Fairview HospitalComment on above:Performed By: #### [id number] #### [facility] [address], [place] [address]Uupt nitrogen [Mass/Vol]17 mg/dLNormal5-21[facility] HospitalComment on above:Performed By: #### [id number] #### [facility] [address], [place] [address]Ltpk nitrogen/Creatinine [Mass ratio]21 No QgoetYqgr62-27ZookiqCleveland Clinic Fairview HospitalComment on above:Performed By: #### [id number] #### [facility] [address], [place] [address]Pfacaghstf [Mass/Vol]0.6 mg/dLNormal0.5-1.3FThe MetroHealth SystemComment on above:Performed By: #### [id number] #### [facility] [address], [place] [address]Liwdbhl [Mass/Vol]138 mg/vHVckiku61-513NgrobwCleveland Clinic Fairview HospitalComment on above:Performed By: #### [id number] #### [facility] [address], [place] [address]Tgjb nitrogen [Mass/Vol]16 mg/dLNormal5-21[facility] HospitalComment on above:Performed By: #### [id number] #### [facility] [address], [place] [address]Osim nitrogen/Creatinine [Mass ratio]27 No DpqpcVzfv78-19DspjdqCleveland Clinic Fairview HospitalComment on above:Performed By: #### [id number] #### [facility] [address], [place] [address]Mmbpn gap [Moles/Vol]12 mmol/LNormal6-16[facility] HospitalComment on above:Performed By: #### [id number] #### [facility] [address], [place] [address]Eerzpbu [Mass/Vol]8.8 mg/dLLow8.9-11.1FThe MetroHealth SystemComment on above:Performed By: #### [id number] #### [facility] [address], [place] [address]Lxahrznj [Moles/Vol]102 mmol/RBosvvr575-881RenkznCleveland Clinic Fairview HospitalComment on above:Performed By: #### [id number] #### [place] [facility] [address] [place] [address]BK0 [Moles/Vol]25 mmol/FFknchh03-29EwmolsCleveland Clinic Fairview Hospital Comment on above:Performed By: #### [id number] #### [place] [facility] [address] [place] [address]Fngclhjnk [Moles/Vol]3.6 mmol/LNormal3.5-5.3Fisher [facility] InstituteComment on above:Performed By: #### [id number] #### [facility] [address] [place] [address]Bhhcne [Moles/Vol]135 mmol/RJfujbc471-424YspnmqCleveland Clinic Fairview HospitalComment on above:Performed By: #### [id number] #### [facility] [address] [place] [address]YSBXrq 54-51-7722Sylx HB Qnt1.06 mmol/LHigh0.02-0.27[facility] HospitalComment on above:Performed By: #### [id number] #### [facility] [address] [place] [address]Qxs Gas Venon 59-27-7492Hrfwkf TestNot ApplicableNormalCleveland Clinic Fairview HospitalComment on above:Performed By: #### [id number] #### [facility] [address] [place] [address]Szude byLABInvalid Interpretation [facility] HospitalComment on above:Performed By: #### [id number] #### [facility] [address] [place] [address]QJE6 BG21.0Invalid Interpretation [facility] HospitalComment on above:Performed By: #### [id number] #### [facility] [address] [place] [address]fXA6 Ven40.0 keFsFtkvya39.0-50.0[facility] Comment on above:Performed By: #### [id number] #### [facility] [address] [place] [address]bH Ven7.855Lqxr2.320-7.430[facility] HospitalComment on above:Performed By: #### [id number] #### [facility] [address] [place] [address]Woqdur SiteOTHERNormalCleveland Clinic Fairview HospitalComment on above:Performed By: #### [id number] #### [facility] [address] [place] [address]Sosnox TypeVenous DrawNormalCleveland Clinic Fairview HospitalComment on above:Performed By: #### [id number] #### [facility] [address] [place] [address]JMT w/ Auto Diffon 97-79-0613Dinezhddh/100 WBC (Bld)2.0 %Normal 0.0-2.0[facility] HospitalComment on above:Performed By: #### [id number] #### [facility] [address] [place] [address]Muzjnghhi/Leukocytes Auto (Bld) [Pure # fraction]0.2 E9/LNormal 0.0-0.2FThe MetroHealth SystemComment on above:Performed By: #### [id number] #### [facility] [address] [place] [address]Qyvbohzfmeg (Bld) [#/Vol]0.2 E9/LNormal0.0-0.5FThe MetroHealth SystemComment on above:Performed By: #### [id number] #### [facility] [address] [place] [address]Qqaeenpzuqw/100 WBC (Bld)2.7 %Normal0.0-8.0[facility] HospitalComment on above:Performed By: #### [id number] #### [facility] [address] [place] [address]Dmbvhkomuul distribution width (RBC) [Ratio]13.5 %Normal 10.9-14.2FThe MetroHealth SystemComment on above:Performed By: #### [id number] #### [place] [facility] [address] [place] [address]Mnrjqmhidp (Bld) [Volume fraction]42.7 %Izvlor49.0-46.0[facility] HospitalComment on above:Performed By: #### [id number] #### [place] [facility] [address], [place] [address]Mkuierjuhe (Bld) [Mass/Vol]15.3 g/uUMgkkps82.0-16.0[facility] HospitalComment on above:Performed By: #### [id number] #### [place] [facility] [address] [place] [address]Ahpfnmaadna (Bld) [#/Vol]1.5 E9/LNormal1.0-4.0[facility] HospitalComment on above:Performed By: #### [id number] #### [facility] [address] [place] [address]Mgsqpfmytai/100 WBC (Bld)16.8 %Htjzxw04.0-50.0[facility] HospitalComment on above:Performed By: #### [id number] #### [facility] [address] [place] [address] 396[address]KNE (RBC) [Entitic mass]33.8 dsLwsdtb47.0-34.0[facility] HospitalComment on above:Performed By: #### [id number] #### [place] [facility] [address], [place] [address]MZRZ (RBC) [Mass/Vol]35.8 g/vWKjhlnd81.4-36.0[facility] HospitalComment on above:Performed By: #### [id number] #### [facility] [address] [place] [address] 477[address]TKT (RBC) [Entitic vol]94.6 lNOaecfh27.0-100.0[facility] HospitalComment on above:Performed By: #### [id number] #### [facility] [address] [place] [address]Oumtpzokq (Bld) [#/Vol]0.7 E9/LNormal0.2-1.0[facility] HospitalComment on above:Performed By: #### [id number] #### [facility] [address] [place] [address]Hxczvzicjbp (Bld) [#/Vol]6.1 E9/LNormal2.0-7.5FThe MetroHealth SystemComment on above:Performed By: #### [id number] #### [facility] [address] [place] [address]Gtopcybcpbz/100 WBC (Bld)70.7 %Vqbeyr25.0-75.0[facility] HospitalComment on above:Performed By: #### [id number] #### [facility] [address] [place] [address]27[address]Romyfmwa149.0 E9/ANpmiyv301.0-500.0[facility] Comment on above:Performed By: #### [id number] #### [facility] [address] [place] [address]Aphkdnrx mean volume (Bld) [Entitic vol]9.5 fLNormal6.4-10.8 [facility] HospitalComment on above:Performed By: #### [id number] #### [facility] [address] [place] [address] 814[address]KXN (Bld) [#/Vol]4.5 E12/LNormal4.3-5.9[facility] HospitalComment on above:Performed By: #### [id number] #### [facility] [address] [place] [address]MVD corrected for nucl RBC Auto (Bld) [#/Vol]8.6 E9/LNormal 4.0-11.0[facility] HospitalComment on above:Performed By: #### [id number] #### [facility] [address] [place] [address] 279[address]Rqiqnqlgr/100 WBC (Bld)0.5 %Normal0.0-2.0[facility] HospitalComment on above:Performed By: #### [id number] #### [facility] [address] [place] [address]29[address]Rretckfxx/Leukocytes Auto (Bld) [Pure # fraction]0.0 E9/LNormal 0.0-0.2FThe MetroHealth SystemComment on above:Performed By: #### [id number] #### [facility] [address] [place] [address] 14[address]Cnldjfnwwye (Bld) [#/Vol]0.3 E9/LNormal0.0-0.5FThe MetroHealth SystemComment on above:Performed By: #### [id number] #### [facility] [address] [place] [address] 765[address]Veetxubtwnd/100 WBC (Bld)4.7 %Normal0.0-8.0[facility] HospitalComment on above:Performed By: #### [id number] #### [facility] [address] [place] [address] 449[address]Bgfelzjrxos distribution width (RBC) [Ratio]13.5 %Normal 10.9-14.2FThe MetroHealth SystemComment on above:Performed By: #### [id number] #### [facility] [address] [place] [address] 74[address]Gxyuavtvrx (Bld) [Volume fraction]39.3 %Djiade23.0-46.0[facility] HospitalComment on above:Performed By: #### [id number] #### [facility] [address] [place] [address]Mldnsfppmw (Bld) [Mass/Vol]13.3 g/rZNvznlc38.0-16.0[facility] HospitalComment on above:Performed By: #### [id number] #### [facility] [address] [place] [address] 11586Qwepsfmkbqe (Bld) [#/Vol]1.4 E9/LNormal1.0-4.0[facility] HospitalComment on above:Performed By: #### [id number] #### Jack [facility] [address] [place] [address] 02684Wpvjrdsqvub/100 WBC (Bld)19.2 %Fxjiqy26.0-50.0[facility] HospitalComment on above:Performed By: #### [id number] #### [place] [facility] [address] [place] [address] 360[address]GDK (RBC) [Entitic mass]32.4 bwTzguqw11.0-34.0[facility] HospitalComment on above:Performed By: #### [id number] #### [facility] [address] [place] [address] 678[address]TIWP (RBC) [Mass/Vol]33.9 g/uUAdtdpx23.4-36.0[facility] HospitalComment on above:Performed By: #### [id number] #### [place] [facility] [address] [place] [address] 05882YOR (RBC) [Entitic vol]95.5 gZBncnbd46.0-100.0[facility] HospitalComment on above:Performed By: #### [id number] #### [facility] [address] [place] [address] 212[address]Acgkilwuh (Bld) [#/Vol]0.8 E9/LNormal0.2-1.0[facility] HospitalComment on above:Performed By: #### [id number] #### [facility] [address] [place] [address] 06293Gqynymqftmr (Bld) [#/Vol]4.8 E9/LNormal2.0-7.5FThe MetroHealth SystemComment on above:Performed By: #### [id number] #### [place] [facility] [address] [place] [address] 19767Ogzjihswmin/100 WBC (Bld)65.0 %Ayzwac32.0-75.0[facility] HospitalComment on above:Performed By: #### [id number] #### [facility] [address], [place] [address]Fffmsfwl685.0 E9/PQbfyua708.0-500.0[facility] Comment on above:Performed By: #### [id number] #### [facility] [address], [place] [address]Csyxvrsf mean volume (Bld) [Entitic vol]10.4 fLNormal6.4-10.8 [facility] HospitalComment on above:Performed By: #### [id number] #### [facility] [address] [place] [address] 22471HOG (Bld) [#/Vol]4.1 E12/LLow4.3-5.9[facility] Comment on above:Performed By: #### [id number] #### [facility] [address] [place] [address] 96677KIB corrected for nucl RBC Auto (Bld) [#/Vol]7.4 E9/LNormal 4.0-11.0[facility] HospitalComment on above:Performed By: #### [id number] #### [facility] [address] [place] [address] [id number] By: SYSTEM SYSTEM on [id number] [Mass/Vol]4.1 g/dLNormal3.3 - 5.0 gm/dLRemisol ChemAlbumin/Globulin [Mass ratio] 0.9 {ratio}Low1.1 - 2.2Remisol ChemALP [Catalytic activity/Vol]83 [iU]/kPuffap51 - 98 Int._Unit/LRemisol ChemALT No additional P-5'-P [Catalytic activity/Vol]13 [iU]/dNormal6 - 46 Int._Unit/LRemisol ChemAST [Catalytic activity/Vol]22 [iU]/d Normal5 - 43 Int._Unit/LRemisol ChemBeta HB Qnt1.06 mmol/LHigh0.02 - 0.27 mmol/L Remisol ChemBilirubin [Mass/Vol]0.5 mg/dLNormal0.0 - 1.1 mg/dLRemisol Chem Bilirubin.direct [Mass/Vol]0.1 mg/dLNormal0.0 - 0.4 mg/dLRemisol Chem Bilirubin.indirect [Mass or moles/Vol]0.4 mg/dLNormal0.1 - 0.9 mg/dLRemisol Chem Globulin (S) [Mass/Vol]4.5 g/dLHigh1.4 - 4.0 gm/dLRemisol ChemLipase [Catalytic activity/Vol]36 U/XDsfocd71 - 58 unit/LRemisol ChemProtein [Mass/Vol]8.6 g/dL High6.0 - 7.8 gm/dLRemisol ChemTroponin HS8.50 pg/mLLow10.10 - 27.10 pg/mL Remisol ChemComment on above:Interpretive Data: The 95% CI (Confidence Interval) PPV (Positive Predictive Value) for myocardial infarction in females is 38 pg/mL, in males 51 pg/mL. The results should be used in conjunction withclinical conditions of myocardial infarction. (Access High Sensitivity Troponin I Instructions For Use, [facility], June 2018)Anion gap [Moles/Vol]12 mmol/LNormal6 - 16 mEq/LRemisol ChemCalcium [Mass/Vol]8.8 mg/dLLow8.9 - 11.1 mg/dLRemisol ChemChloride [Moles/Vol]102 mmol/L Xmdihj253 - 111 mmol/LRemisol ChemCO2 [Moles/Vol]25 mmol/TOvlzsd22 - 31 mmol/L Remisol ChemCreatinine [Mass/Vol]0.6 mg/dLNormal0.5 - 1.3 mg/dLRemisol ChemeGFR 88 mL/min/1.73 o4Wdwtsm>=59mL/min/1.73 n7Ndjuynk ChemGlucose [Mass/Vol]138 mg/dL Haxjfo58 - 199 mg/dLRemisol ChemMagnesium [Mass/Vol]1.8 mg/dLNormal1.3 - 2.4 mg/dLRemisol ChemPotassium [Moles/Vol]3.6 mmol/LNormal3.5 - 5.3 mmol/LRemisol ChemSodium [Moles/Vol]135 mmol/VQrcuiq036 - 145 mmol/LRemisol ChemUrea nitrogen [Mass/Vol]16 mg/dLNormal5 - 21 mg/dLRemisol ChemUrea nitrogen/Creatinine [Mass ratio]27 mg/msRvfl47 - 20Remisol ChemCHEMISTRYOrdered By: Lab PATRICEUser on 36-18-6816Ikmpsmg [Mass/Vol]144 mg/fKProl29 - 99 mg/dLJIM TALIAFERRO [facility] POC SubsectionComment on above:Result Comment: Notified RN/MDPOC Device [id number] 1Invalid Interpretation [facility] POC SubsectionPOC User [id number] 1Invalid Interpretation CodeJIM TALIAFERRO [facility] POC SubsectionPOC UsernameBARSEAN BORRERORINAInvalid Interpretation CodeJIM [facility]ALIAFERR[facility] POC SubsectionCapillary Glucose POCon [id number] [Mass/Vol]78 mg/bLBpmepn49-19UpnakjCleveland Clinic Fairview HospitalComment on above:Result Comment: Notified RN/MDPerformed By: #### [id number] #### [facility] [address], [place] [address]Uchklfn [Mass/Vol]120 mg/kFNyzb72-62GzuokhCleveland Clinic Fairview Hospital Comment on above:Result Comment: Notified RN/MDPerformed By: #### [id number] #### [facility] [address], [place] [address]Axkpvbl [Mass/Vol]144 mg/yVIljn90-02MxqupkCleveland Clinic Fairview Hospital Comment on above:Result Comment: Notified RN/MDPerformed By: #### [id number] #### [facility] [address], [place] [address]Ihyythwgp Note-Nursingon 11-28-3655Qlhnbhvuh Note-Nursing Discharge Note-Nursing MICHELLE NASH :1940 Visit Date:06/15/2024 Inpatient Discharge Instructions Your Care Team Admitting Physician - Navjot VALENTINE, Mariann Reece Reason for Your Visit pain in stomach Your Diagnosis SBO (small bowel obstruction) Abdominal pain Nausea Vomiting Tests Performed UA with Cult Rflx -- Results Pending -- CT Abdomen/Pelvis w/ Contrast XR Small Bowel w/ Serial Films Please visit your patient portal for your results or contact your primary care physician. This Is Your Medications List Misc Prescription (BD UF Nanno pen needle 4mm x32G) Misc Prescription (BLOOD GLUCOSE METER TEST STRIPS) Misc Prescription (Blood Pressure Monitor) Misc Prescription (Freestyle Eduar 2 Flash Glucose Monitoring 14 Day System ([place])) Misc Prescription (Freestyle Eduar 2 Flash Glucose Monitoring 14 Day System (Sensor)) Misc Prescription (Freestyle Eduar 2 sensor) Misc Prescription (Glucose Kit) Misc Prescription (LANCETS OF CHOICE OR SPECIFIED BY INSURANCE.) Misc Prescription (Pen [place]) albuterol (Albuterol (Eqv-ProAir HFA) 90 mcg/inh inhalation aerosol) aspirin (aspirin 81 mg Chew Tab) atorvastatin (atorvastatin 10 mg Tab) budesonide-formoterol (Symbicort 160/4.5 inhalation aerosol with adapter) cholecalciferol (Vitamin D 1000 intl units (25 mcg) Tab) empagliflozin (Jardiance 10 mg oral tablet) fluconazole (Diflucan 150 mg Tab) insulin glargine (Lantus Solostar Pen 100 units/mL subcutaneous solution) insulin lispro (HumaLOG KwikPen 100 units/mL injectable solution) losartan (losartan 50 mg Tab) multivitamin multivitamin with minerals (PreserVision AREDS) omeprazole (omeprazole 20 mg Cap-DR) propranolol (propranolol 60 mg oral tablet) tizanidine (tizanidine 4 mg oral capsule) trazodone (traZODONE 50 mg Tab) Procedure History Bladder (07/30/2019), Cataract (11/29/2016), Lower back (surface region) (11/29/1989), Colpocleisis, [place]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 Discharge Vitals Temperature (Oral) 36.4 ?C Heart Rate (Monitored) 69 Respiratory Rate 16 Blood Pressure 195/79 Weight 56.2 kg What to do next Instructions From Your Doctor Event Name Event Result Discharge Activity Ambulate as tolerated Discharge Restrictions No restrictions Discharge Diet(s) Regular Call Your Doctor For Persistent vomiting Pending Diagnostic Test Results None Discharge Instructions as discussed, maintain a balanced diet with plenty of fluids, fiber, and try to ensure daily soft bowel movements. If constipated for more than 48 hours, take laxatives to assist with a bowel movement. If severe pain, vomiting, lack of appetite, return ED Previously Scheduled Follow-Up Appointments 2023 10:45 AM EDT With: Mai VALENTINE, Natacha Concepcion Where: [address] [address]- \.br\ New Follow Up Appointments after Discharge\.br\ Follow Up with trauma clinic When: Only if needed\.br\ Comments:\.br\ Only if questions or concerns\.br\ Where:\.br\ [address] (2nd floor)\.br\ [place], [place] [address].br\ [phone]\.br\ Follow Up with Natacha Oneill When: \.br\ Comments:\.br\ to monitor hypertension\.br\ Medications\.br\ What How Much When Why Instructions Next Dose\.br\ Unchanged albuterol (Albuterol (Eqv-ProAir HFA) 90 mcg/ inh inhalation aerosol) See instructions INHALE 2 PUFFS BY MOUTH EVERY 6HOURS Resume as previously taken\.br\ Unchanged aspirin (aspirin 81 mg Chew Tab) 1 Tablets By MouthEvery day 06/19 @ 9am\.br\ Unchanged atorvastatin (atorvastatin 10 mg Tab) 1 Tablets By Mouth At bedtime 06/18 @ 9pm\.br\ Unchanged budesonide-formoterol (Symbicort 160/ 4.5 inhalation aerosol with adapter) 2 Puffs Inhalation 2 times a day Resume as previously taken\.br\ Unchanged cholecalciferol (Vitamin D 1000 intl units (25 mcg) Tab) 3 Tablets By Mouth Every day 06/19 @ 9am\.br\ Unchanged empagliflozin (Jardiance 10 mg oral tablet) See instructions TAKE 1 TABLET BY MOUTH EVERY MORNING 06/19 @ 9am\.br\ Unchanged fluconazole (Diflucan 150 mg Tab) 1 Tablets By Mouth Once Resume as previously taken\.br\ Unchanged insulin glargine (Lantus Solostar Pen 100 units/ mL subcutaneous solution) See instructions INJECT 10 UNITS SUBCUATANEOUSLY TWICE A DAY 06/18 @ 9pm\.br\ Unchanged insulin lispro (HumaLOG KwikPen 100 units/ mL injectable solution) See instructions TID AC MEALS 150-200 2U, 201-250 4U, 251-300 6U, 301-350 8U,351-400 10U, > 401 12U AND CALL PCP 06/18 @ 4:30pm\.br\ Unchanged losartan (losartan 50 mg Tab) See instructions TAKE 1 TABLET BY MOUTH DAILY 06/19 @ 9am\.br\ Unchanged Misc Pre scription (BD UF Nanno pen needle 4mm x32G) See instructions Use one pen needle with each administration of lantus BID and humalog TID. Dx E11.9 \.br\ Unchanged Misc Prescription (BLOOD GLUCOSE METERTEST STRIPS) See instructions Interstitial lung disease Type 2 diabetes mellitus with hyperglycemia, without long-term current use of insulin Yeast infection BMI 22.0-22.9, adult BLOOD GLUCOSE METER TEST STRIPS OF CHOICE, OR SPECIFIED BY INSURANCE. USE WITH METER ONCE DAILY. DX E11.9 \.br\ Unchanged Misc Prescription (Blood Pressure Monitor) See instructions HTN (hypertension) Arm BP monitor \.br\ Unchanged Misc Prescription (Freestyle [place] 2 Flash Glucose Monitoring 14 Day System ([place]))See instructions Weakness Hyponatremia Freestyle Eduar Flash Glucose Monitoring 14 Day System ([place]) \.br\ Unchanged Misc Prescription (Freestyle Eduar 2 Flash Glucose Monitoring 14 Day System (Sensor)) See instructions Weakness Hyponatremia Freestyle Eduar Flash Glucose Monitoring 14 Day System (Sensor). Replace sensor every 14 days. \.br\ Unchanged Misc Prescription (Freestyle Eduar 2 sensor)See instructions DM type 2, not at goal Insulin long-term use Free style Eduar 2 \.br\ Unchanged Misc Prescription (Glucose Kit) See instructions Interstitial lung disease Type 2 diabetes mellitus with hyperglycemia, without long-term current use of insulin Yeast infection BMI 22.0-22.9, adult Glucose meter. Include autolet, matching test strips, lancets, & alcohol wipes, #100 or as allowed by insurance; DX: E11.9 \.br\ Unchanged Misc Prescription (LANCETS OF CHOICE OR SPECIFIED BY INSURANCE.) See instructions Interstitial lung disease Type 2 diabetes mellitus with hyperglycemia, without long-term current use of insulin Yeast infection BMI 22.0-22.9, adult USE TO TEST BLOOD GLUCOSE ONCE DAILY FOR DX E11.9 \.br\ Unchanged Misc Prescription (Pen [place]) See instructions To be used with giving insulin TID. Dx: E11.65 \.br\ Unchanged multivitamin 1 Tablets By Mouth Every day 06/19 @ 9am\.br\ Unchanged multivitamin with minerals (PreserVision AREDS) See instructions Take one daily 06/19 @ 9am\.br\ Unchanged omeprazole (omeprazole 20 mg Cap-DR) 1 Capsules By Mouth Every day 06/19 @ 9am\.br\ Unchanged propranolol (propranolol 60 mg oral tablet) 1 Tablets By Mouth At bedtime 06/18 @ 9pm\.br\ Unchanged tizanidine (tizanidine 4 mg oral capsule) 1 Capsules By Mouth At bedtime 06/18 @ 9pm\.br\ Unchanged trazodone (traZODONE 50 mg Tab) See instructions TAKE 1/ 2 TABLET BY MOUTH ONCE DAILY AT BEDTIME 06/18 @ 9pm\.br\ Test Results\.br\ CBC \.br\ BMP \.br\ WBC: 7.4 E9/L (06/18/24 06:05:00)\.br\ Glucose Lvl: 138 mg/dL (06/18/24 06:05:00)\.br\ RBC: 4.1 E12/L Low (06/18/24 06:05:00)\.br\ BUN: 16 mg/dL (06/18/24 06:05:00)\.br\ HGB: 13.3 gm/dL (06/18/24 06:05:00)\.br\ Creatinine: 0.6 mg/dL (06/18/24 06:05:00)\.br\ Hct: 39.3 % (06/18/24 06:05:00)\.br\ BUN/Creat Ratio: 27 High (06/18/24 06:05:00)\.br\ MCV: 95.5 fL (06/18/24 06:05:00)\.br\ Sodium Lvl: 135 mmol/L (06/18/24 06:05:00)\.br\ MCH: 32.4 pg (06/18/24 06:05:00)\.br\ Potassium Lvl: 3.6 mmol/L (06/18/24 06:05:00)\.br\ MCHC: 33.9 gm/dL (06/18/24 06:05:00)\.br\ Chloride: 102 mmol/L (06/18/24 06:05:00)\.br\ RDW: 13.5 % (06/18/24 06:05:00)\.br\ CO2: 25 mmol/L (06/18/24 06:05:00)\.br\ Platelet: 238 E9/L (06/18/24 06:05:00)\.br\ AGAP: 12 mEq/L (06/18/24 06:05:00)\.br\ MPV: 10.4 fL (06/18/24 06:05:00)\.br\ Calcium Lvl: 8.8 mg/dL Low (06/18/24 06:05:00)\.br\ Allergies\.br\ No Known Medication Allergies\.br\ Problems\.br\ Ongoing -Any problem that you are currently receiving treatment for.\.br\ Anxiety\.br\ Dizziness\.br\ 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\.br\ Former smoker\.br\ GERD (gastroesophageal reflux disease)\.br\ HLD (hyperlipidemia)\.br\ HTN (hypertension)\.br\ Hyponatremia\.br\ Hypovitaminosis D\.br\ Interstitial lung disease\.br\ Long-term insulin use\.br\ Major depressive disorder, recurrent, in full remission\.br\ Malnutrition\.br\ Multiple falls\.br\ OAB (overactive bladder)\.br\ Osteopenia\.br\ Pitting edema\.br\ Shoulder pain, right\.br\ Type 2 diabetes mellitus with hyperlip idemia\.br\ UTI symptoms\.br\ Weakness\.br\ Historical - Any problem that you are no longer receiving treatment for.\.br\ \.br\ \.br\ \.br\ Education Materials\.br\ Bowel Obstruction\.br\ A bowel obstruction is a blockage in the small or large bowel. The bowel is also called the intestine. It is a long tube that connects the stomach to the anus. When a person eats and drinks, food and fluids go from the mouth to the stomach to the small bowel. This is where most of the nutrients in the food and fluids are absorbed. After the small bowel, material passes through the large bowel for further absorption until any leftover material leaves the body as stool (feces) through the anus during a bowel movement.\.br\ A bowel obstruction will prevent food and fluids from passing through the bowel as they normally do during digestion. The bowel can become partially or completely blocked. If this condition is not treated, it can be dangerous because the bowel could rupture. \.br\ What are the causes?\.br\ \.br\ Common causes of this condition include:\.br\ ? \.br\ Scar tissue in the body (adhesions) from previous surgery or treatment with high-energy X-rays (radiation).\.br\ ? \.br\ Recent surgery. This may cause the movements of the bowel to slow down and cause food to block the intestine.\.br\ ? \.br\ Inflammatory bowel disease, such as Crohn's disease or diverticulitis.\.br\ ? \.br\ Growths or tumors.\.br\ ? \.br\ A bulging organ or tissue (hernia).\.br\ ?[facility] Clinical Summaryon [id number] Clinical SummaryED Clinical Summary [address] [address] ED Clinical Summary Person Information Name: MICHELLE NASH [facility] Age: 83 Years : 1940 Sex: Female Language: Pakistani PCP: Natacha Oneill MD Marital Status: Phone: [phone] Visit Id: Visit Reason: Nausea and vomiting; SMALL BOWL OBSTRUCTION Speciality: Acuity: 3 Enc Type: Inpatient Med Service: Medical Arrival: 06/18/2024 16:57:00 Discharge: LOS: 000 06:10 Checkin: 06/18/2024 16:57:00 Checkout: 06/18/2024 23:07:57 Dispo Type: Admitted as IP to this [facility] EVENTS: Event Name Event Status Request Date/Time Start Date/Time Complete Date/Time Arrive Complete 06/18/2024 16:57:00 06/18/2024 16:57:00 06/18/2024 16:57:00 Document Home Meds Request 06/18/2024 16:57:00 Triage Complete 06/18/2024 16:57:00 06/18/2024 17:03:44 06/18/2024 17:03:44 Bed Assign Complete 06/18/2024 16:57:53 06/18/2024 16:57:53 06/18/2024 16:57:53 Dr Exam Complete 06/18/2024 16:57:53 06/18/2024 17:03:21 06/18/2024 17:03:21 RN Exam Complete 06/18/2024 16:57:53 06/18/2024 17:05:30 06/18/2024 17:05:30 Registration Complete 06/18/2024 17:03:21 06/18/2024 17:03:43 06/18/2024 17:03:43 Reg Complete Request 06/18/2024 17:03:43 Reg Bed Request Complete 06/18/2024 17:03:43 06/18/2024 17:03:43 06/18/2024 17:03:43 30 Day Return Request 06/18/2024 17:03:45 EKG Complete 06/18/2024 17:13:16 06/18/2024 17:31:05 CT Complete 06/18/2024 17:13:16 06/18/2024 17:57:27 06/18/2024 18:21:21 Meds Admin Complete 06/18/2024 17:13:16 06/18/2024 18:56:40 Pending Labs Complete 06/18/2024 17:13:16 06/18/2024 18:31:00 Lab Complete 06/18/2024 17:13:16 06/18/2024 17:58:54 Patient Care Complete 06/18/2024 17:13:16 06/18/2024 17:16:06 Pending Labs Complete 06/18/2024 17:25:42 06/18/2024 17:25:42 06/18/2024 17:58:54 Lab Complete 06/18/2024 17:25:42 06/18/2024 17:25:42 06/18/2024 17:58:54 Meds Admin Complete 06/18/2024 17:28:20 06/18/2024 17:53:01 Pending Labs Complete 06/18/2024 17:32:47 06/18/2024 17:32:47 06/18/2024 17:32:48 Pending Labs Cancel 06/18/2024 18:23:05 06/18/2024 18:28:20 Pending Labs Complete 06/18/2024 18:28:39 06/18/2024 18:28:39 06/18/2024 18:59:53 Pending Labs Cancel 06/18/2024 18:36:23 06/18/2024 18:45:28 Pending Labs Complete 06/18/2024 18:37:44 06/18/2024 19:33:27 RT Tx/ABG Complete 06/18/2024 18:37:44 06/18/2024 21:38:52 06/18/2024 21:38:52 Meds Admin Request 06/18/2024 18:48:28 Pending Labs Complete 06/18/2024 18:48:51 06/18/2024 18:48:51 06/18/2024 19:39:14 Dr Exam Complete 06/18/2024 19:01:13 06/18/2024 19:01:13 06/18/2024 19:01:13 Registration Complete 06/18/2024 19:01:13 06/18/2024 21:50:59 06/18/2024 21:50:59 Pending Labs Complete 06/18/2024 20:14:52 06/18/2024 20:14:52 06/18/2024 20:14:52 Pending Labs Complete 06/18/2024 20:16:34 06/18/2024 20:16:34 06/18/2024 20:16:35 Meds Admin Complete 06/18/2024 20:20:05 06/18/2024 20:33:30 Pending Labs Complete 06/18/2024 20:21:24 06/18/2024 20:21:24 06/18/2024 20:21:25 Pending Labs Complete 06/18/2024 20:23:37 06/18/2024 20:23:37 06/18/2024 20:23:37 Meds Admin Complete 06/18/2024 20:26:01 06/18/2024 21:01:32 Patient Care Request 06/18/2024 21:48:53 NPO Request 06/18/2024 21:48:53 Pending Labs Request 06/18/2024 21:48:53 Lab Request 06/18/2024 21:48:53 Meds Admin Request 06/18/2024 21:48:53 Bed Request Request 06/18/2024 21:48:53 Reg Bed Request Complete 06/18/2024 21:48:53 06/18/2024 21:50:59 06/18/2024 21:50:59 Admit Request 06/18/2024 21:48:53 Pending Labs Request 06/18/2024 21:49:38 Patient Care Request 06/18/2024 21:50:58 Patient Care Request 06/18/2024 21:50:59 Patient Care Request 06/18/2024 21:50:59 Patient Care Request 06/18/2024 21:50:59 Medicare Form Complete 06/18/2024 21:51:00 06/18/2024 22:08:06 Patient Care Request 06/18/2024 21:51:00 Patient Care Request 06/18/2024 21:51:00 Pending Labs Complete 06/18/2024 22:59:54 06/18/2024 22:59:54 06/18/2024 22:59:54 Patient Care Request 06/18/2024 23:04:32 Meds Admin Request 06/18/2024 23:04:32 ADDRESS: [address] [place] [phone] [facility] DOC NOTES: MEDICAL INFORMATION: Prescriptions Given: Medications to Continue with No Changes Other Medications albuterol (Albuterol (Eqv-ProAir HFA) 90 mcg/inh inhalation aerosol) INHALE 2 PUFFS BY MOUTH EVERY 6 HOURS. Refills: 0. aspirin (aspirin 81 mg Chew Tab) 1 Tablets By Mouth every day. atorvastatin (atorvastatin 10 mg Tab) 1 Tablets By Mouth at bedtime. Refills: 3. budesonide-formoterol (Symbicort 160/4.5 inhalation aerosol with adapter) 2 Puffs Inhalation 2 times a day. Refills: 0. cholecalciferol (Vitamin D 1000 intl units (25 mcg) Tab) 3 Tablets By Mouth every day. empagliflozin (Jardiance 10 mg oral tablet) TAKE 1 TABLET BY MOUTH EVERY MORNING. Refills: 3. fluconazole (Diflucan 150 mg Tab) 1 Tablets By Mouth Once. Refills: 0. insulin glargine (Lantus Solostar Pen 100 units/mL subcutaneous solution) INJECT 10 UNITS SUBCUATANEOUSLY TWICE A DAY. Refills: 1. insu (more content not included)...[facility] Clinical SummaryED Clinical Summary [place] [id number] ED Clinical Summary Person Information Name: MICHELLE NASH [facility] Age: 83 Years : 1940 Sex: Female Language: Pakistani PCP: Natacha Oneill MD Marital Status: Phone: [phone] Visit Id: Visit Reason: Nausea and vomiting; SMALL BOWL OBSTRUCTION Speciality: Acuity: 3 Enc Type: Inpatient Med Service: Emergency Arrival: 06/18/2024 16:57:00 Discharge: LOS: 000 05:34 Checkin: 06/18/2024 16:57:00 Checkout: Dispo Type: EVENTS: Event Name Event Status Request Date/Time Start Date/Time Complete Date/Time Arrive Complete 06/18/2024 16:57:00 06/18/2024 16:57:00 06/18/2024 16:57:00 Document Home Meds Request 06/18/2024 16:57:00 Triage Complete 06/18/2024 16:57:00 06/18/2024 17:03:44 06/18/2024 17:03:44 Bed Assign Complete 06/18/2024 16:57:53 06/18/2024 16:57:53 06/18/2024 16:57:53 Dr Exam Complete 06/18/2024 16:57:53 06/18/2024 17:03:21 06/18/2024 17:03:21 RN Exam Complete 06/18/2024 16:57:53 06/18/2024 17:05:30 06/18/2024 17:05:30 Registration Complete 06/18/2024 17:03:21 06/18/2024 17:03:43 06/18/2024 17:03:43 Reg Complete Request 06/18/2024 17:03:43 Reg Bed Request Complete 06/18/2024 17:03:43 06/18/2024 17:03:43 06/18/2024 17:03:43 30 Day Return Request 06/18/2024 17:03:45 EKG Complete 06/18/2024 17:13:16 06/18/2024 17:31:05 CT Complete 06/18/2024 17:13:16 06/18/2024 17:57:27 06/18/2024 18:21:21 Meds Admin Complete 06/18/2024 17:13:16 06/18/2024 18:56:40 Pending Labs Complete 06/18/2024 17:13:16 06/18/2024 18:31:00 Lab Complete 06/18/2024 17:13:16 06/18/2024 17:58:54 Patient Care Complete 06/18/2024 17:13:16 06/18/2024 17:16:06 Pending Labs Complete 06/18/2024 17:25:42 06/18/2024 17:25:42 06/18/2024 17:58:54 Lab Complete 06/18/2024 17:25:42 06/18/2024 17:25:42 06/18/2024 17:58:54 Meds Admin Complete 06/18/2024 17:28:20 06/18/2024 17:53:01 Pending Labs Complete 06/18/2024 17:32:47 06/18/2024 17:32:47 06/18/2024 17:32:48 Pending Labs Cancel 06/18/2024 18:23:05 06/18/2024 18:28:20 Pending Labs Complete 06/18/2024 18:28:39 06/18/2024 18:28:39 06/18/2024 18:59:53 Pending Labs Cancel 06/18/2024 18:36:23 06/18/2024 18:45:28 Pending Labs Complete 06/18/2024 18:37:44 06/18/2024 19:33:27 RT Tx/ABG Complete 06/18/2024 18:37:44 06/18/2024 21:38:52 06/18/2024 21:38:52 Meds Admin Request 06/18/2024 18:48:28 Pending Labs Complete 06/18/2024 18:48:51 06/18/2024 18:48:51 06/18/2024 19:39:14 Dr Exam Complete 06/18/2024 19:01:13 06/18/2024 19:01:13 06/18/2024 19:01:13 Registration Complete 06/18/2024 19:01:13 06/18/2024 21:50:59 06/18/2024 21:50:59 Pending Labs Complete 06/18/2024 20:14:52 06/18/2024 20:14:52 06/18/2024 20:14:52 Pending Labs Complete 06/18/2024 20:16:34 06/18/2024 20:16:34 06/18/2024 20:16:35 Meds Admin Complete 06/18/2024 20:20:05 06/18/2024 20:33:30 Pending Labs Complete 06/18/2024 20:21:24 06/18/2024 20:21:24 06/18/2024 20:21:25 Pending Labs Complete 06/18/2024 20:23:37 06/18/2024 20:23:37 06/18/2024 20:23:37 Meds Admin Complete 06/18/2024 20:26:01 06/18/2024 21:01:32 Patient Care Request 06/18/2024 21:48:53 NPO Request 06/18/2024 21:48:53 Pending Labs Request 06/18/2024 21:48:53 Lab Request 06/18/2024 21:48:53 Meds Admin Request 06/18/2024 21:48:53 Bed Request Request 06/18/2024 21:48:53 Reg Bed Request Complete 06/18/2024 21:48:53 06/18/2024 21:50:59 06/18/2024 21:50:59 Admit Request 06/18/2024 21:48:53 Pending Labs Request 06/18/2024 21:49:38 Patient Care Request 06/18/2024 21:50:58 Patient Care Request 06/18/2024 21:50:59 Patient Care Request 06/18/2024 21:50:59 Patient Care Request 06/18/2024 21:50:59 Medicare Form Complete 06/18/2024 21:51:00 06/18/2024 22:08:06 Patient Care Request 06/18/2024 21:51:00 Patient Care Request 06/18/2024 21:51:00 ADDRESS: [address] [place] [phone] PHYS DOC NOTES: MEDICAL INFORMATION: Prescriptions Given: Medications to Continue with No Changes Other Medications albuterol (Albuterol (Eqv-ProAir HFA) 90 mcg/inh inhalation aerosol) INHALE 2 PUFFS BY MOUTH EVERY 6 HOURS. Refills: 0. aspirin (aspirin 81 mg Chew Tab) 1 Tablets By Mouth every day. atorvastatin (atorvastatin 10 mg Tab) 1 Tablets By Mouth at bedtime. Refills: 3. budesonide-formoterol (Symbicort 160/4.5 inhalation aerosol with adapter) 2 Puffs Inhalation 2 times a day. Refills: 0. cholecalciferol (Vitamin D 1000 intl units (25 mcg) Tab) 3 Tablets By Mouth every day. empagliflozin (Jardiance 10 mg oral tablet) TAKE 1 TABLET BY MOUTH EVERY MORNING. Refills: 3. fluconazole (Diflucan 150 mg Tab) 1 Tablets By Mouth Once. Refills: 0. insulin glargine (Lantus Solostar Pen 100 units/mL subcutaneous solution) INJECT 10 UNITS SUBCUATANEOUSLY TWICE A DAY. Refills: 1. insulin lispro (HumaLOG KwikPen 100 units/mL injectable solution) TID AC MEALS 150-200 2U, 201-250 4U, 251-300 6U, 301-350 8U,351-400 10U, > 401 12U AND CALL PCP. Refills: 0. losartan (losartan 50 mg Tab) YUKI (more content not included)...[facility] Education Noteon [id number] Patient Education NoteED Patient Education NoteNormalFlorencioer [facility]ED Patient Education NoteED Patient Education NoteNormalJack [facility]ED Patient Summaryon [id number] Patient SummaryED Patient Summary [place] [id number] Patient Discharge Instructions Person Information Name: MICHELLE NASH Age: 83 Years Arrival Date: 06/18/2024 16:57:00 Discharge Diagnosis: Nausea & vomiting Primary Care Physician: Natacha Oneill MD Provider Information Primary Provider: Jerrell Ramos DO Advanced Trailer Truck Driver:None The exam and treatment you received in the Emergency Department were for an urgent problem and are not intended as complete care. It is important that you follow up with a doctor, nurse practitioner,or physician?s call center assistant for ongoing care. If your symptoms become worse or you do not improve as expected and you are unable to reach your usual health care provider, you should return to the Emergency Department. We are available 24 hours a day. MICHELLE NASH has been given the following list of patient education materials, prescriptions and follow-up instructions: Follow-up Instructions: In the event that this physician does not participate in your insurance network, please consult with your insurance company to find a nearby participating provider. Patient Education Materials: A MESSAGE TO ALL PATIENTS REGARDING OPIOIDS PRESCRIPTION OPIOIDS: WHAT YOU NEED TO KNOW Prescription opioids can be used to help relieve ehfgzuxu-ye-cvpydr pain and are often prescribed following a surgery or injury, or for certain health conditions. These medications can be an important part of the treatment but also come with serious risks. It is important to work with your healthcare provider to make sure you are getting the safest, most effective care. WHAT ARE THE RISKS AND SIDE EFFECTS OF OPIOID USE? Prescription opioids carry serious risks of addiction and overdose, especially with prolonged use. An opioid overdose, often marked by slowed breathing, can cause sudden . The use of prescription opioids can have a number of side effects as well, even when taken as directed: ? Tolerance?meaning you might need to take more of the medication for the same pain relief ? Physical dependence?meaning you have symptoms of withdrawal when a medication is stopped ? Increased sensitivity to pain ? Constipation ? Nausea, vomiting, and dry mouth ? Sleepiness and dizziness ? Confusion ? Depression ? Low levels of testosterone that can result in lower sex drive, energy, and strength ? Itching and sweating RISKS ARE GREATER WITH: ? History of drug misuse, substance use disorder, or overdose ? Mental health conditions (such as depression or anxiety) ? Sleep apnea ? Older age (65 years and older) ? Avoid alcohol while taking prescription opioids. Also, unless specifically advised by your health care provider, medications to avoid include: ? Benzodiazepines (such as Xanax or Valium) ? Muscle relaxants (such as Soma or Flexeril) ? Hypnotics (such as Ambien or Lunesta) ? Other prescription opioids KNOW YOUR OPTIONS Talk to your health care provider about ways to manage your pain that don?t involve prescription opioids. Some of these options may actually work better and have fewer risks and side effects. Optionsmay include: ? Pain relievers such as acetaminophen, ibuprofen, and naproxen ? Some medication that are also used for depression or seizures ? Physical therapy and exercise ? Cognitive behavioral therapy, a psychological, goal-directed approach, in which patients learn how to modify physical, behavioral, and emotional triggers of pain and stress. IF YOU ARE PRESCRIBED OPIOIDS FOR PAIN: ? Never take opioids in greater amounts or more often than prescribed. ? Follow up with your primary health care provider. o Work together to create a plan on how to manage your pain. o Talk about ways to help manage your pain that don?t involve prescription opioids. o Talk about any and all concerns and side effects. ? Help prevent misuse and abuse o Never sell or share prescription opioids. o Never use another person?s prescription opioids. ? Store prescription opioids in a secure place and out of reach of others (this may include visitors, children, friends, and family). ? Safely dispose of unused prescription opioids: Find your community drug take- back program or [employer] mail-back program, or flush them down the toilet, following guidance from the Food and Drug Administration (www.fda.gov/Drugs/ResourcesForYou). ? Visit www.cdc.gov/drugoverdose to learn about the risks of opioids abuse and overdose. ? If you believe you may be struggling with addiction, tell your health healthcare interpreter and ask for guidance or call [facility]?S National Helpline at 5-166-713-HELP. v Source: US Department of Health and Human Services/Center for Disease Control & Prevention [facility] Medications Given: Medication Dose Route (more content not included)...[facility] Patient SummaryED Patient Summary [place] [id number] Patient Discharge Instructions Person Information Name: MICHELLE NASH Age: 83 Years Arrival Date: 06/18/2024 16:57:00 Discharge Diagnosis: Nausea & vomiting Primary Care Physician: Natacha Oneill MD Provider Information Primary Provider: Jerrell Ramos DO Advanced Trailer Truck Driver:None The exam and treatment you received in the Emergency Department were for an urgent problem and are not intended as complete care. It is important that you follow up with a doctor, nurse practitioner,or physician?s call center assistant for ongoing care. If your symptoms become worse or you do not improve as expected and you are unable to reach your usual health care provider, you should return to the Emergency Department. We are available 24 hours a day. MICHELLE NASH has been given the following list of patient education materials, prescriptions and follow-up instructions: Follow-up Instructions: In the event that this physician does not participate in your insurance network, please consult with your insurance company to find a nearby participating provider. Patient Education Materials: A MESSAGE TO ALL PATIENTS REGARDING OPIOIDS PRESCRIPTION OPIOIDS: WHAT YOU NEED TO KNOW Prescription opioids can be used to help relieve vaotknfx-ub-xgvbsc pain and are often prescribed following a surgery or injury, or for certain health conditions. These medications can be an important part of the treatment but also come with serious risks. It is important to work with your healthcare provider to make sure you are getting the safest, most effective care. WHAT ARE THE RISKS AND SIDE EFFECTS OF OPIOID USE? Prescription opioids carry serious risks of addiction and overdose, especially with prolonged use. An opioid overdose, often marked by slowed breathing, can cause sudden . The use of prescription opioids can have a number of side effects as well, even when taken as directed: ? Tolerance?meaning you might need to take more of the medication for the same pain relief ? Physical dependence?meaning you have symptoms of withdrawal when a medication is stopped ? Increased sensitivity to pain ? Constipation ? Nausea, vomiting, and dry mouth ? Sleepiness and dizziness ? Confusion ? Depression ? Low levels of testosterone that can result in lower sex drive, energy, and strength ? Itching and sweating RISKS ARE GREATER WITH: ? History of drug misuse, substance use disorder, or overdose ? Mental health conditions (such as depression or anxiety) ? Sleep apnea ? Older age (65 years and older) ? Avoid alcohol while taking prescription opioids. Also, unless specifically advised by your health care provider, medications to avoid include: ? Benzodiazepines (such as Xanax or Valium) ? Muscle relaxants (such as Soma or Flexeril) ? Hypnotics (such as Ambien or Lunesta) ? Other prescription opioids KNOW YOUR OPTIONS Talk to your health care provider about ways to manage your pain that don?t involve prescription opioids. Some of these options may actually work better and have fewer risks and side effects. Optionsmay include: ? Pain relievers such as acetaminophen, ibuprofen, and naproxen ? Some medication that are also used for depression or seizures ? Physical therapy and exercise ? Cognitive behavioral therapy, a psychological, goal-directed approach, in which patients learn how to modify physical, behavioral, and emotional triggers of pain and stress. IF YOU ARE PRESCRIBED OPIOIDS FOR PAIN: ? Never take opioids in greater amounts or more often than prescribed. ? Follow up with your primary health care provider. o Work together to create a plan on how to manage your pain. o Talk about ways to help manage your pain that don?t involve prescription opioids. o Talk about any and all concerns and side effects. ? Help prevent misuse and abuse o Never sell or share prescription opioids. o Never use another person?s prescription opioids. ? Store prescription opioids in a secure place and out of reach of others (this may include visitors, children, friends, and family). ? Safely dispose of unused prescription opioids: Find your community drug take- back program or [employer] mail-back program, or flush them down the toilet, following guidance from the Food and Drug Administration (www.fda.gov/Drugs/ResourcesForYou). ? Visit www.cdc.gov/drugoverdose to learn about the risks of opioids abuse and overdose. ? If you believe you may be struggling with addiction, tell your health healthcare interpreter and ask for guidance or call [facility]?S National Helpline at 9-887-825-IVJE. x Source: US Department of Health and Human Services/Center for Disease Control & Prevention [facility] Medications Given: Medication Dose Route (more content not included)...NormalCleveland Clinic Fairview HospitalFT Blood Gases Ordered By: Charlette Au on 17-13-7997Upxdtd TestNot Applicable (06/18/24 7:24 PM)NormalJ[facility] [place] Resp Auto SSDrawn byLABInvalid Interpretation Code [facility] Resp Auto SSFIO2 BG21.0 1Invalid Interpretation CodeJIM [facility]ALIAFERRO [facility] [place] Resp Auto SSpCO2 Ven40.0 mm[Hg]Wmnkwm77.0 - 50.0 mmHgJIM [facility]ALIAFERRO [facility] [place] Resp Auto SSpH (Bld)7.453 [pH]High7.320 - 7.430[facility] Resp Auto SSSample SiteOTHER (06/18/24 7:24 PM)NormalJ[facility] [place] Resp Auto SSSample TypeVenous Draw (06/18/24 7:24 PM)NormalJIM [facility]IA[facility] [place] Resp Auto SSHEMATOLOGYOrdered By: SYSTEM SYSTEM on 27-17-9975Brgzupaoy/100 WBC (Bld)2.0 %Normal0.0 - 2.0 %Remisol Heme Basophils/Leukocytes Auto (Bld) [Pure # fraction]0.2 E9/LNormal0.0 - 0.2 E9/L Remisol HemeEosinophils (Bld) [#/Vol]0.2 E9/LNormal0.0 - 0.5 E9/LRemisol Heme Eosinophils/100 WBC (Bld)2.7 %Normal0.0 - 8.0 %Remisol HemeErythrocyte distribution width (RBC) [Ratio]13.5 %Zoupcs33.9 - 14.2 %Remisol HemeHematocrit (Bld) [Volume fraction]42.7 %Wlyetx33.0 - 46.0 %Remisol HemeHemoglobin (Bld) [Mass/Vol]15.3 g/hPMykruj75.0 - 16.0 gm/dLRemisol HemeLymphocytes (Bld) [#/Vol] 1.5 E9/LNormal1.0 - 4.0 E9/LRemisol HemeLymphocytes/100 WBC (Bld)16.8 %Normal 14.0 - 50.0 %Remisol HemeMCH (RBC) [Entitic mass]33.8 isZtpawc78.0 - 34.0 pg Remisol HemeMCHC (RBC) [Mass/Vol]35.8 g/rZLepxqd21.4 - 36.0 gm/dLRemisol HemeMCV (RBC) [Entitic vol]94.6 vKZjcaxl33.0 - 100.0 fLRemisol HemeMonocytes (Bld) [#/Vol]0.7 E9/LNormal0.2 - 1.0 E9/LRemisol HemeMonocytes/100 WBC (Bld)7.8 % Normal4.0 - 14.0 %Remisol HemeNeutrophils (Bld) [#/Vol]6.1 E9/LNormal2.0 - 7.5 E9/LRemisol HemeNeutrophils/100 WBC (Bld)70.7 %Wljdpw84.0 - 75.0 %Remisol Heme Xnuosobl402.0 E9/RQdcbzl280.0 - 500.0 E9/LRemisol HemePlatelet mean volume (Bld) [Entitic vol]9.5 fLNormal6.4 - 10.8 fLRemisol HemeRBC (Bld) [#/Vol]4.5 E12/L Normal4.3 - 5.9 E12/LRemisol HemeWBC corrected for nucl RBC Auto (Bld) [#/Vol] 8.6 E9/LNormal4.0 - 11.0 E9/LRemisol HemeBasophils/100 WBC (Bld)0.5 %Normal0.0 - 2.0 %Remisol HemeBasophils/Leukocytes Auto (Bld) [Pure # fraction]0.0 E9/L Normal0.0 - 0.2 E9/LRemisol HemeEosinophils (Bld) [#/Vol]0.3 E9/LNormal0.0 - 0.5 E9/LRemisol HemeEosinophils/100 WBC (Bld)4.7 %Normal0.0 - 8.0 %Remisol Heme Erythrocyte distribution width (RBC) [Ratio]13.5 %Iloyme13.9 - 14.2 %Remisol HemeHematocrit (Bld) [Volume fraction]39.3 %Ddfjdm23.0 - 46.0 %Remisol Heme Hemoglobin (Bld) [Mass/Vol]13.3 g/bAGxvrxn18.0 - 16.0 gm/dLRemisol Heme Lymphocytes (Bld) [#/Vol]1.4 E9/LNormal1.0 - 4.0 E9/LRemisol HemeLymphocytes/100 WBC (Bld)19.2 %Xxpmuz67.0 - 50.0 %Remisol HemeMCH (RBC) [Entitic mass]32.4 pg Civpwn84.0 - 34.0 pgRemisol HemeMCHC (RBC) [Mass/Vol]33.9 g/xDFnkykl44.4 - 36.0 gm/dLRemisol HemeMCV (RBC) [Entitic vol]95.5 hHPsbdom04.0 - 100.0 fLRemisol Heme Monocytes (Bld) [#/Vol]0.8 E9/LNormal0.2 - 1.0 E9/LRemisol HemeMonocytes/100 WBC (Bld)10.6 %Normal4.0 - 14.0 %Remisol HemeNeutrophils (Bld) [#/Vol]4.8 E9/L Normal2.0 - 7.5 E9/LRemisol HemeNeutrophils/100 WBC (Bld)65.0 %Zmobqx21.0 - 75.0 %Remisol RampQbgzqrhx114.0 E9/UHbbolr059.0 - 500.0 E9/LRemisol HemePlatelet mean volume (Bld) [Entitic vol]10.4 fLNormal6.4 - 10.8 fLRemisol HemeRBC (Bld) [#/Vol]4.1 E12/LLow4.3 - 5.9 E12/LRemisol HemeWBC corrected for nucl RBC Auto (Bld) [#/Vol]7.4 E9/LNormal4.0 - 11.0 E9/LRemisol HemeHep Func Panelon 09-93-8547Qjlqpoy [Mass/Vol]4.1 g/dLNormal3.3-5.0[facility] Comment on above:Performed By: #### [id number] #### [facility] [address], [place] [address]Vynealu/Globulin (S) [Mass conc ratio]0.9Low1.1-2.2FThe MetroHealth SystemComment on above:Performed By: #### [id number] #### [facility] [address], [place] [address]AEH [Catalytic activity/Vol]83 Int._Unit/BRxjapl38-44CdvzbpCleveland Clinic Fairview HospitalComment on above:Performed By: #### [id number] #### [facility] [address], [place] [address]JOC No additional P-5'-P [Catalytic activity/Vol]13 Int._Unit/L Normal6-46[facility] HospitalComment on above:Performed By: #### [id number] #### [facility] [address], [place] [address]URG [Catalytic activity/Vol]22 Int._Unit/LNormal5-43[facility] HospitalComment on above:Performed By: #### [id number] #### [facility] [address], [place] [address]Divhgmqww [Mass/Vol]0.5 mg/dLNormal0.0-1.1FThe MetroHealth SystemComment on above:Performed By: #### [id number] #### [facility] [address], [place] [address]Ftdfngolc.direct [Mass/Vol]0.1 mg/dLNormal0.0-0.4FThe MetroHealth SystemComment on above:Performed By: #### [id number] #### [facility] [address], [place] [address]Kpxwlspuv.indirect [Mass or moles/Vol]0.4 mg/dLNormal0.1-0.9 [facility] HospitalComment on above:Performed By: #### [id number] #### [facility] [address], [place] [address]Ghrlafml (S) [Mass/Vol]4.5 g/dLHigh1.4-4.0[facility] HospitalComment on above:Performed By: #### [id number] #### [facility] [address] [place] [address]Azmvuyq [Mass/Vol]8.6 g/dLHigh6.0-7.8[facility] HospitalComment on above:Performed By: #### [id number] #### [facility] [address], [place] [address]Qhbjmn Levelon 21-02-9683Gehlyn [Catalytic activity/Vol]36 U/L Cyvqph49-88IvzctdCleveland Clinic Fairview HospitalComment on above:Performed By: #### [id number] #### [facility] [address] [place] [address]Cbkdzmxawww 61-33-1831Uklpnixwc [Mass/Vol]1.8 mg/dLNormal 1.3-2.4FThe MetroHealth SystemComment on above:Performed By: #### [id number] #### [facility] [address] [place] [address]Hmghaqgg 0 Hr.on 49-52-9533Sowpmuax HS8.50 pg/mLLow10.10-27.10 [facility] HospitalComment on above:Result Comment: The 95% CI (Confidence Interval) PPV (Positive Predictive Value) for myocardial infarction in females is 38 pg/mL, in males 51 pg/mL. The results should be used in conjunction with clinical conditions of myocardial infarction. (Access High Sensitivity Troponin I Instructions For Use, [facility], June 2018)Performed By: #### [id number] #### [facility] [address] [place] [address]VT with Cult Rflxon 79-87-3645Ahykhjsh Auto Ql (U)TraceNormal TraceCleveland Clinic Fairview HospitalComment on above:Performed By: #### [id number] #### [facility] [address] [place] [address]Hxxqmfbiv Ql (U)NegativeNormalNegativeCleveland Clinic Fairview HospitalComment on above:Performed By: #### [id number] #### [facility] [address], [place] [address]Oqbboot (U)TurbidAbnormalCleOhioHealth Dublin [facility] Hospital Comment on above:Performed By: #### [id number] #### [facility] [address], [place] [address]Symww (U)ColorlessAbnormalYellowCleveland Clinic Fairview Hospital Comment on above:Result Comment: Microscopic readings are only performed on those samples that meet specific criteria set forth by [facility].Performed By: #### [id number] #### [facility] [address], [place] [address]Jpbidpj Ql (U)4+ mg/dLAbnormalNegativeCleveland Clinic Fairview HospitalComment on above:Performed By: #### [id number] #### [facility] [address], [place] [address]Xllxpcjwjy Auto test strip (U) [Mass/Vol]NegativeNormalNegative [facility] HospitalComment on above:Performed By: #### [id number] #### [facility] [address], [place] [address]Tjmiwjk Auto test strip Ql (U)2+ mg/dLAbnormalNegFostoria City HospitalComment on above:Performed By: #### [id number] #### [facility] [address], [place] [address]Slzfwtdcx esterase Auto test strip Ql (U)NegativeNormalNegative [facility] HospitalComment on above:Performed By: #### [id number] #### [facility] [address], [place] [address]Mrwsr Auto Ql (U)NegativeNormalNegativeC[facility] Clinic Fairview HospitalComment on above:Performed By: #### [id number] #### [facility] [address], [place] [address]Uwnuczx Auto test strip Ql (U)NegativeNormalNegativeCleveland Clinic Fairview HospitalComment on above:Performed By: #### [id number] #### [facility] [address] [place] [address]eP (U)8.0 [pH]Invalid Interpretation Code5.0-9.0[facility] HospitalComment on above:Performed By: #### [id number] #### [facility] [address] [place] [address]Qsraohk Ql (U)TraceAbnormalNegativeC[facility] Clinic [facility] Comment on above:Performed By: #### [id number] #### [facility] [address] [place] [address]VGD Ql (U)2-5Gtbdba4-9WvgqhtThe MetroHealth SystemComment on above:Performed By: #### [id number] #### [facility] [address] [place] [address]Gdjqpcop gravity (U) [Rel density]1.014Invalid Interpretation Code1.005-1.030[facility] HospitalComment on above:Performed By: #### [id number] #### [facility] [address] [place] [address]Njvgafywuthb (U) [Mass/Vol]NegativeNormalNegFostoria City HospitalComment on above:Performed By: #### [id number] #### [facility] [address] [place] [address]APW Auto (Urine sed) [#/Area]6-7Hwdqvi9-5YlvflnThe MetroHealth SystemComment on above:Performed By: #### [id number] #### [facility] [address] [place] [address]Alxs of Urine collection methodClean CatchNormalCleveland Clinic Fairview HospitalComment on above:Performed By: #### [id number] #### [facility] [address] [place] [address]ZGDANZVHZEAnyvtsj By: SYSTEM SYSTEM on 47-99-7135Ezlueita Auto Ql (U)Trace /HPFNormalTrace/HPFFTMC UA Auto SSBilirubin Ql (U)NegativeNormal Negativemg/dLFTMC UA Auto SSClarity (U)Turbid *ABN* (06/18/24 6:03 PM)Invalid Interpretation CodeClearFTMC UA Auto SSColor (U) Colorless 1 *ABN* (06/18/24 6:03 PM)Invalid Interpretation CodeYellowFT UA Auto SSComment on above:Interpretive Data: Microscopic readings are only performed on those samples that meet specific criteria set forth by [facility].Glucose Ql (U)4+ mg/dLInvalid Interpretation CodeNegativemg/dLFT UA Auto SSHemoglobin Auto test strip (U) [Mass/Vol]NegativeNormalNegativemg/dLFT UA Auto SSKetones Auto test strip Ql (U)2+ mg/dLInvalid Interpretation Code Negativemg/dLFTMC UA Auto SSLeukocyte esterase Auto test strip Ql (U)Negative NormalNegativeLeu/uLFT UA Auto SSMucus Auto Ql (U)NegativeNormal Negativegraded/LPFFTMC UA Auto SSNitrite Auto test strip Ql (U)NegativeNormal Negativemg/dLFTMC UA Auto SSpH (U)8.0 *NA* (06/18/24 6:03 PM)Invalid Interpretation Code5.0 - 9.0[facility] UA Auto SSProtein Ql (U)Trace mg/dLInvalid Interpretation CodeNegativemg/dLFT UA Auto SSRBC Ql (U) 0-3 graded/HPFNormal0-3graded/HPFFTMC UA Auto SSSpecific gravity (U) [Rel density]1.014 *NA* (06/18/24 6:03 PM)Invalid Interpretation Code1.005 - 1.030FT UA Auto SS Urobilinogen (U) [Mass/Vol]NegativeNormalNegativemg/dLFT UA Auto SSWBC Auto (Urine sed) [#/Area]0-5 graded/HPFNormal0-5graded/HPFFTMC UA Auto SSURINALYSIS Ordered By: Jerrell Ramos on 41-80-3396CT Spec DescClean Catch (06/18/24 6:03 PM)NormalJIM TALIAFERRO [facility] UA Auto SS xr Small Bowel w/ Serial Filmson 25-38-9659ET Small Bowel w/ Serial FilmsExam Date/Time: 06/17/2024 17:28 EDT Reason for Exam: Bowel obstruction Report SMALL BOWEL SERIES CLINICAL INFORMATION: Generalized abdominal pain with nausea and vomiting. TECHNIQUE: Overhead and spot images were obtained after oral ingestion of contrast material. RESULT: Contrast material reached the colon by one hour. The mucosal pattern and caliber of the small bowel similar to the recent CT. Other findings: Surgical clips throughout the left abdomen, unchanged. Scattered colonic feces. NG tube with tip in the stomach and side port near the gastroesophageal junction. No acute osseous findings. Degenerative changes. Lung bases grossly unremarkable. IMPRESSION: No evidence for high-grade bowel obstruction. Ordering Provider: Mariann Morfin FINAL REPORT Dictated: 06/18/2024 8:56 am Cesar Markham MD Signed (Electronic Signature): 06/18/2024 8:56 am Signed by: Cesar Markham MD Transcribed by: KATHLEEN Technologist: CHANTALE Technical Comments Radiation Dose: Ka,r in mGy = . DAP = .NormalCleveland Clinic Fairview HospitaleGFRon 63-44-4275uBCE80 mL/min/1.73 m2 Normal>=59[facility] HospitalComment on above:Order Comment: Order added by Discern Expert.Performed By: #### [id number] #### [facility] [address], [place] [address]dHQB66 mL/min/1.73 e6Zbwxll>=59[facility] Comment on above:Order Comment: Order added by Discern Expert.Performed By: #### [id number] #### [facility] [address], [place] [address]YZXtf 89-21-2632Hdyww gap [Moles/Vol]12 mmol/LNormal6-16[facility] HospitalComment on above:Performed By: #### [id number] #### [facility] [address], [place] [address]Smusqcs [Mass/Vol]8.6 mg/dLLow8.9-11.1FThe MetroHealth SystemComment on above:Performed By: #### [id number] #### [facility] [address], [place] [address]Dipfkktk [Moles/Vol]102 mmol/ALcdike068-970PyfcyyCleveland Clinic Fairview HospitalComment on above:Performed By: #### [id number] #### [facility] [address], [place] [address]VH4 [Moles/Vol]29 mmol/UJxfppd33-28UaekbnC[facility] Clinic Fairview Hospital Comment on above:Performed By: #### [id number] #### [facility] [address], [place] [address]Qkthoyqkhd [Mass/Vol]0.6 mg/dLNormal0.5-1.3FThe MetroHealth SystemComment on above:Performed By: #### [id number] #### [facility] [facility] [address], [place] [address]Djnyczz [Mass/Vol]128 mg/bWVdtpxb27-779HerkkzCleveland Clinic Fairview HospitalComment on above:Performed By: #### [id number] #### [facility] [address], [place] [address]Yhpzbewrc [Moles/Vol]3.6 mmol/LNormal3.5-5.3FThe MetroHealth SystemComment on above:Performed By: #### [id number] #### [facility] [address], [place] [address]Yppiym [Moles/Vol]139 mmol/RYijoqe494-928AxtrwzCleveland Clinic Fairview HospitalComment on above:Performed By: #### [id number] #### [facility] [address], [place] [address]Pdco nitrogen [Mass/Vol]20 mg/dLNormal5-21[facility] HospitalComment on above:Performed By: #### [id number] #### [facility] [address], [place] [address]Dwed nitrogen/Creatinine [Mass ratio]33 No WeehzYloq15-09QjmzinCleveland Clinic Fairview HospitalComment on above:Performed By: #### [id number] #### [facility] [address] [place] [address]44[address]UUF w/ Auto Diffon 12-62-4961Aiaisxeli/100 WBC (Bld)0.2 %Normal 0.0-2.0[facility] HospitalComment on above:Performed By: #### [id number] #### [facility] [address] [place] [address] 157[address]Ugptlllbq/Leukocytes Auto (Bld) [Pure # fraction]0.0 E9/LNormal 0.0-0.2FThe MetroHealth SystemComment on above:Performed By: #### [id number] #### [facility] [address] [place] [address]Oukmxjqediq (Bld) [#/Vol]0.2 E9/LNormal0.0-0.5FThe MetroHealth SystemComment on above:Performed By: #### [id number] #### [facility] [address] [place] [address] 24163Aaqldhngrum/100 WBC (Bld)2.1 %Normal0.0-8.0[facility] HospitalComment on above:Performed By: #### [id number] #### [facility] [address] [place] [address] 46862Qtkdbmlranc distribution width (RBC) [Ratio]13.8 %Normal 10.9-14.2FThe MetroHealth SystemComment on above:Performed By: #### [id number] #### [facility] [address] [place] [address] 26214Jtebdqpwta (Bld) [Volume fraction]39.3 %Zrkvml69.0-46.0[facility] HospitalComment on above:Performed By: #### [id number] #### [facility] [address] [place] [address]Ezscfsgslo (Bld) [Mass/Vol]13.4 g/uISzzlgh60.0-16.0[facility] HospitalComment on above:Performed By: #### [id number] #### [facility] [address] [place] [address]Dcfrcixriih (Bld) [#/Vol]1.3 E9/LNormal1.0-4.0[facility] HospitalComment on above:Performed By: #### [id number] #### [facility] [address] [place] [address]37[address]Pjqmhjbcwrw/100 WBC (Bld)13.7 %Low14.0-50.0[facility] HospitalComment on above:Performed By: #### [id number] #### [facility] [address] [place] [address] 94018EWW (RBC) [Entitic mass]32.7 zaSirhac62.0-34.0[facility] HospitalComment on above:Performed By: #### [id number] #### [facility] [address] [place] [address] 71276RADD (RBC) [Mass/Vol]34.0 g/oFZcicms49.4-36.0[facility] HospitalComment on above:Performed By: #### [id number] #### [facility] [address] [place] [address] 54722IRG (RBC) [Entitic vol]96.0 qQRkldkh75.0-100.0[facility] HospitalComment on above:Performed By: #### [id number] #### [facility] [address] [place] [address] 28[address]Zymfccxox (Bld) [#/Vol]1.2 E9/LHigh0.2-1.0[facility] HospitalComment on above:Performed By: #### [id number] #### [facility] [address] [place] [address] 427[address]Sbwshbzinhl (Bld) [#/Vol]6.5 E9/LNormal2.0-7.5FThe MetroHealth SystemComment on above:Performed By: #### [id number] #### [facility] [address], [place] [address]Hvbwtpnvpoc/100 WBC (Bld)70.6 %Ytbgyi24.0-75.0[facility] HospitalComment on above:Performed By: #### [id number] #### [facility] [address], [place] [address]Esqghgtn769.0 E9/EOhvvpl024.0-500.0[facility] Comment on above:Performed By: #### [id number] #### [facility] [address], [place] [address]Mnvaxiof mean volume (Bld) [Entitic vol]9.5 fLNormal6.4-10.8 [facility] HospitalComment on above:Performed By: #### [id number] #### [facility] [address] [place] [address] 03188DON (Bld) [#/Vol]4.1 E12/LLow4.3-5.9[facility] Comment on above:Performed By: #### [id number] #### [facility] [address] [place] [address] 06266SPE corrected for nucl RBC Auto (Bld) [#/Vol]9.2 E9/LNormal 4.0-11.0[facility] HospitalComment on above:Performed By: #### [id number] #### [facility] [address] [place] [address] 67969WFKEDOLOGNhijgja By: Marina Carrera on 43-47-7173Lsaocmi [Mass/Vol]162 mg/nSCrxd72 - 99 mg/dLJIM [facility] [place] POC SubsectionComment on above:Result Comment: Notified RN/MDPOC Device [id number] 1Invalid Interpretation Code [facility] P[facility] SubsectionPOC User [id number] 1Invalid Interpretation CodeJIM [facility]IAF[facility] [place] POC SubsectionPOC UsernameALTOMARE, KAYLEEInvalid Interpretation CodeJIM [facility]ERR[facility] [place] [facility] SubsectionGlucose [Mass/Vol]130 mg/tNRwzq40 - 99 mg/dLJIM [facility] [place] POC SubsectionComment on above:Result Comment: Notified RN/MDPOC Device [id number] 1Invalid Interpretation CodeJIM [facility] [place] [facility] SubsectionPOC User [id number] 1Invalid Interpretation CodeJIM [facility] [place] POC SubsectionPOC UsernamPRISCILLA BoseInvalid Interpretation CodeJIM TALIAFERRO [facility] [place] P[facility] SubsectionCHEMISTRYOrdered By: SYSTEM SYSTEM on 49-83-7578Ukljp gap [Moles/Vol]12 mmol/LNormal6 - 16 mEq/LRemisol ChemCalcium [Mass/Vol]8.6 mg/dLLow8.9 - 11.1 mg/dLRemisol ChemChloride [Moles/Vol]102 mmol/L Sgnacn493 - 111 mmol/LRemisol ChemCO2 [Moles/Vol]29 mmol/UUazivw78 - 31 mmol/L Remisol ChemCreatinine [Mass/Vol]0.6 mg/dLNormal0.5 - 1.3 mg/dLRemisol ChemeGFR 88 mL/min/1.73 j8Zrffrt>=59mL/min/1.73 s5Josfalt ChemGlucose [Mass/Vol]128 mg/dL Piugyg72 - 199 mg/dLRemisol ChemMagnesium [Mass/Vol]1.8 mg/dLNormal1.3 - 2.4 mg/dLRemisol ChemPotassium [Moles/Vol]3.6 mmol/LNormal3.5 - 5.3 mmol/LRemisol ChemSodium [Moles/Vol]139 mmol/MWhlvtt968 - 145 mmol/LRemisol ChemUrea nitrogen [Mass/Vol]20 mg/dLNormal5 - 21 mg/dLRemisol ChemUrea nitrogen/Creatinine [Mass ratio]33 mg/tgJzlg16 - 20Remisol ChemCapillary Glucose POCon 04-70-2558Wgukthy [Mass/Vol]162 mg/uAUvbl75-14QvfpvhCleveland Clinic Fairview HospitalComment on above:Result Comment: Notified RN/MDPerformed By: #### [id number] #### [facility] [address], [place] [address]Ekllmek [Mass/Vol]130 mg/oDQrbb31-28UgqqeeCleveland Clinic [facility] Hospital Comment on above:Result Comment: Notified RN/MDPerformed By: #### [id number] #### [facility] [address], [place] [address]Hkphefi [Mass/Vol]139 mg/hRRjwj97-83KygitmCleveland Clinic [facility] Comment on above:Result Comment: Notified RN/MDPerformed By: #### [id number] #### [facility] [address], [place] [address]Yxugjqk [Mass/Vol]153 mg/rLHlay22-65TjklcjCleveland Clinic [facility] Comment on above:Result Comment: Notified RN/MDPerformed By: #### [id number] #### [facility] [address], [place] [address]Tqagcsh [Mass/Vol]121 mg/iPZxqz76-92LoslyaCleveland Clinic [facility] Hospital Comment on above:Result Comment: Notified RN/MDPerformed By: #### [id number] #### [facility] [address], [place] [address]BMVPBXCRMTCckcyng By: SYSTEM SYSTEM on 64-21-8043Ygsaniwtm/100 WBC (Bld)0.2 %Normal0.0 - 2.0 %Remisol HemeBasophils/Leukocytes Auto (Bld) [Pure # fraction]0.0 E9/LNormal0.0 - 0.2 E9/LRemisol HemeEosinophils (Bld) [#/Vol]0.2 E9/LNormal0.0 - 0.5 E9/LRemisol HemeEosinophils/100 WBC (Bld)2.1 %Normal0.0 - 8.0 %Remisol HemeErythrocyte distribution width (RBC) [Ratio]13.8 %Hnigxu62.9 - 14.2 %Remisol HemeHematocrit (Bld) [Volume fraction]39.3 %Pvfiml18.0 - 46.0 % Remisol HemeHemoglobin (Bld) [Mass/Vol]13.4 g/uRXhboyk47.0 - 16.0 gm/dLRemisol HemeLymphocytes (Bld) [#/Vol]1.3 E9/LNormal1.0 - 4.0 E9/LRemisol Heme Lymphocytes/100 WBC (Bld)13.7 %Low14.0 - 50.0 %Remisol HemeMCH (RBC) [Entitic mass]32.7 njEnxdpv48.0 - 34.0 pgRemisol HemeMCHC (RBC) [Mass/Vol]34.0 g/dLNormal 31.4 - 36.0 gm/dLRemisol HemeMCV (RBC) [Entitic vol]96.0 cCCyjxfq39.0 - 100.0 fL Remisol HemeMonocytes (Bld) [#/Vol]1.2 E9/LHigh0.2 - 1.0 E9/LRemisol Heme Monocytes/100 WBC (Bld)13.4 %Normal4.0 - 14.0 %Remisol HemeNeutrophils (Bld) [#/Vol]6.5 E9/LNormal2.0 - 7.5 E9/LRemisol HemeNeutrophils/100 WBC (Bld)70.6 % Iesbqs14.0 - 75.0 %Remisol XfmnTmeytaqb154.0 E9/VJfgtkl229.0 - 500.0 E9/LRemisol HemePlatelet mean volume (Bld) [Entitic vol]9.5 fLNormal6.4 - 10.8 fLRemisol HemeRBC (Bld) [#/Vol]4.1 E12/LLow4.3 - 5.9 E12/LRemisol HemeWBC corrected for nucl RBC Auto (Bld) [#/Vol]9.2 E9/LNormal4.0 - 11.0 E9/LRemisol HemeMagnesiumon 93-85-6726Inidwvsbd [Mass/Vol]1.8 mg/dLNormal1.3-2.4[facility] Comment on above:Performed By: #### [id number] #### [facility] [address], [place] [address]pOADci 68-23-5090zVTJ83 mL/min/1.73 a6Wpircv>=59[facility]opa[facility] InstituteComment on above:Order Comment: Order added by Discern Expert. Performed By: #### [id number] #### [facility] [address], [place] [address]NSWdt 02-65-2652Fveqm gap [Moles/Vol]13 mmol/LNormal6-16[facility] HospitalComment on above:Performed By: #### [id number] #### [facility] [address], [place] [address]Qwlwmnb [Mass/Vol]9.4 mg/dLNormal8.9-11.1FThe MetroHealth SystemComment on above:Performed By: #### [id number] #### [facility] [address], [place] [address]Mnxbysgi [Moles/Vol]99 mmol/UWkw546-124WdzuwvCleveland Clinic Fairview HospitalComment on above:Performed By: #### [id number] #### [facility] [address], [place] [address]NF1 [Moles/Vol]31 mmol/GHsawcw34-51XzfiviCleveland Clinic [facility] Hospital Comment on above:Performed By: #### [id number] #### [facility] [address], [place] [address]Hinjpuclae [Mass/Vol]0.9 mg/dLNormal0.5-1.3FThe MetroHealth SystemComment on above:Performed By: #### [id number] #### [facility] [address], [place] [address]Gceuxqb [Mass/Vol]174 mg/hQEwgnnz91-402NnhvzuCleveland Clinic Fairview HospitalComment on above:Performed By: #### [id number] #### [facility] [address], [place] [address]Cqzocposl [Moles/Vol]3.8 mmol/LNormal3.5-5.3FThe MetroHealth SystemComment on above:Performed By: #### [id number] #### [facility] [address], [place] [address]Dtjiyv [Moles/Vol]139 mmol/ZKyftcw181-716OifvhqCleveland Clinic Fairview HospitalComment on above:Performed By: #### [id number] #### [facility] [address], [place] [address]Tfpg nitrogen [Mass/Vol]32 mg/dLHigh5-21[facility] HospitalComment on above:Performed By: #### [id number] #### [facility] [address] [place] [address]Dusc nitrogen/Creatinine [Mass ratio]36 No AaujmWamp94-09YczemdCleveland Clinic Fairview HospitalComment on above:Performed By: #### [id number] #### [facility] [address] [place] [address] 58[address]XGN w/ Auto Diffon 32-53-4673Hdvrdpmgy/100 WBC (Bld)0.2 %Normal 0.0-2.0[facility] HospitalComment on above:Performed By: #### [id number] #### [facility] [address] [place] [address]Jizexspjm/Leukocytes Auto (Bld) [Pure # fraction]0.0 E9/LNormal 0.0-0.2FThe MetroHealth SystemComment on above:Performed By: #### [id number] #### [facility] [address] [place] [address] 575[address]Tcpwlaejvgv (Bld) [#/Vol]0.1 E9/LNormal0.0-0.5FThe MetroHealth SystemComment on above:Performed By: #### [id number] #### [facility] [address] [place] [address]Ariakxhztlh/100 WBC (Bld)1.5 %Normal0.0-8.0[facility] HospitalComment on above:Performed By: #### [id number] #### [facility] [address] [place] [address] 332[address]Mmippfnlehn distribution width (RBC) [Ratio]14.0 %Normal 10.9-14.2FThe MetroHealth SystemComment on above:Performed By: #### [id number] #### [facility] [address] [place] [address]Gnlgfuwnas (Bld) [Volume fraction]42.0 %Hhqdcc51.0-46.0[facility] HospitalComment on above:Performed By: #### [id number] #### [facility] [address] [place] [address] 6[address]Inoooeaysx (Bld) [Mass/Vol]14.2 g/lJUjpssr45.0-16.0[facility] HospitalComment on above:Performed By: #### [id number] #### [facility] [address] [place] [address] 695[address]Zypanstrpwh (Bld) [#/Vol]1.4 E9/LNormal1.0-4.0[facility] HospitalComment on above:Performed By: #### [id number] #### [facility] [address] [place] [address] 06152Bkawiophdyu/100 WBC (Bld)17.6 %Poknxv75.0-50.0[facility] HospitalComment on above:Performed By: #### [id number] #### [facility] [address] [place] [address] 64957JCW (RBC) [Entitic mass]32.4 uvZihxql27.0-34.0[facility] HospitalComment on above:Performed By: #### [id number] #### [facility] [address] [place] [address] 31748NWQU (RBC) [Mass/Vol]33.9 g/yDOnauqw83.4-36.0[facility] HospitalComment on above:Performed By: #### [id number] #### [facility] [address] [place] [address] 18532KSK (RBC) [Entitic vol]95.7 vBSewlpc21.0-100.0[facility] HospitalComment on above:Performed By: #### [id number] #### [facility] [address] [place] [address] 98[address]Pmkeprfxk (Bld) [#/Vol]1.1 E9/LHigh0.2-1.0[facility] HospitalComment on above:Performed By: #### [id number] #### [facility] [address], [place] [address]Drtnmwrhcsl (Bld) [#/Vol]5.5 E9/LNormal2.0-7.5FThe MetroHealth SystemComment on above:Performed By: #### [id number] #### [facility] [address], [place] [address]Mrtpbrsjmzj/100 WBC (Bld)67.5 %Ntrkts20.0-75.0[facility] HospitalComment on above:Performed By: #### [id number] #### [facility] [address], [place] [address]Kswftzfo369.0 E9/ETxmmha888.0-500.0[facility] Comment on above:Performed By: #### [id number] #### [facility] [address] [place] [address] 14984Xvudkkxs mean volume (Bld) [Entitic vol]9.0 fLNormal6.4-10.8 [facility] HospitalComment on above:Performed By: #### [id number] #### [facility] [address] [place] [address] 26216IDR (Bld) [#/Vol]4.4 E12/LNormal4.3-5.9[facility] HospitalComment on above:Performed By: #### [id number] #### [facility] [address] [place] [address] 09055TZP corrected for nucl RBC Auto (Bld) [#/Vol]8.2 E9/LNormal 4.0-11.0[facility] HospitalComment on above:Performed By: #### [id number] #### [facility] [address] [place] [address]NIIDZLYOMQqsxjnm By: SYSTEM SYSTEM on 08-79-3108Sroaf gap [Moles/Vol]13 mmol/LNormal6 - 16 mEq/LRemisol ChemCalcium [Mass/Vol]9.4 mg/dL Normal8.9 - 11.1 mg/dLRemisol ChemChloride [Moles/Vol]99 mmol/OIly816 - 111 mmol/LRemisol ChemCO2 [Moles/Vol]31 mmol/PIfnumn96 - 31 mmol/LRemisol Chem Creatinine [Mass/Vol]0.9 mg/dLNormal0.5 - 1.3 mg/dLRemisol LussbAHO99 mL/min/1.73 m0Wjpvne>=59mL/min/1.73 f7Auyldrd ChemGlucose [Mass/Vol]174 mg/dL Mfbrjh42 - 199 mg/dLRemisol ChemMagnesium [Mass/Vol]2.0 mg/dLNormal1.3 - 2.4 mg/dLRemisol ChemPotassium [Moles/Vol]3.8 mmol/LNormal3.5 - 5.3 mmol/LRemisol ChemSodium [Moles/Vol]139 mmol/UPmmnqc005 - 145 mmol/LRemisol ChemUrea nitrogen [Mass/Vol]32 mg/dLHigh5 - 21 mg/dLRemisol ChemUrea nitrogen/Creatinine [Mass ratio]36 mg/kgSipj31 - 20Remisol ChemCapillary Glucose POCon 68-62-7321Shfchct [Mass/Vol]107 mg/mURotn21-85MhlxrlCleveland Clinic Fairview HospitalComment on above:Result Comment: Notified RN/MDPerformed By: #### [id number] #### [facility] [address], [place] [address]Rknekqa [Mass/Vol]135 mg/wPJmtl81-03UrpmxzC[facility] Clinic [facility] Comment on above:Result Comment: Notified RN/MDPerformed By: #### [id number] #### [facility] [address], [place] [address]Hajnanu [Mass/Vol]146 mg/hILwgq08-05ZzwsboCleveland Clinic [facility] Comment on above:Result Comment: Repeat TestPerformed By: #### [id number] #### [facility] [address], [place] [address]Vfsbykn [Mass/Vol]121 mg/iSMmgi38-40EriwquCleveland Clinic [facility] Comment on above:Result Comment: Notified RN/MDPerformed By: #### [id number] #### [facility] [address] [place], [place] [address]YZBNKIKCYVDphlnyl By: Nara Oro on 06-83-9371Jlixvcvak/100 WBC (Bld)0.2 %Normal0.0 - 2.0 %Remisol HemeBasophils/Leukocytes Auto (Bld) [Pure # fraction]0.0 E9/LNormal0.0 - 0.2 E9/LRemisol HemeEosinophils (Bld) [#/Vol]0.1 E9/LNormal0.0 - 0.5 E9/LRemisol HemeEosinophils/100 WBC (Bld)1.5 %Normal0.0 - 8.0 %Remisol HemeErythrocyte distribution width (RBC) [Ratio]14.0 %Mffthd60.9 - 14.2 %Remisol HemeHematocrit (Bld) [Volume fraction]42.0 %Wblqez45.0 - 46.0 % Remisol HemeHemoglobin (Bld) [Mass/Vol]14.2 g/qUGdvzdj15.0 - 16.0 gm/dLRemisol HemeLymphocytes (Bld) [#/Vol]1.4 E9/LNormal1.0 - 4.0 E9/LRemisol Heme Lymphocytes/100 WBC (Bld)17.6 %Jwlkxc72.0 - 50.0 %Remisol HemeMCH (RBC) [Entitic mass]32.4 gkAjrtmz12.0 - 34.0 pgRemisol HemeMCHC (RBC) [Mass/Vol]33.9 g/dL Mxeuzb50.4 - 36.0 gm/dLRemisol HemeMCV (RBC) [Entitic vol]95.7 aDVdknnv74.0 - 100.0 fLRemisol HemeMonocytes (Bld) [#/Vol]1.1 E9/LHigh0.2 - 1.0 E9/LRemisol HemeMonocytes/100 WBC (Bld)13.2 %Normal4.0 - 14.0 %Remisol HemeNeutrophils (Bld) [#/Vol]5.5 E9/LNormal2.0 - 7.5 E9/LRemisol HemeNeutrophils/100 WBC (Bld)67.5 % Sgpdvb53.0 - 75.0 %Remisol JmhrPdyqvbic918.0 E9/UJixrcn981.0 - 500.0 E9/LRemisol HemePlatelet mean volume (Bld) [Entitic vol]9.0 fLNormal6.4 - 10.8 fLRemisol HemeRBC (Bld) [#/Vol]4.4 E12/LNormal4.3 - 5.9 E12/LRemisol HemeWBC corrected for nucl RBC Auto (Bld) [#/Vol]8.2 E9/LNormal4.0 - 11.0 E9/LRemisol Heme Interdisciplinary Note - Case Manageron 66-47-2697Nxvkhpoonwgnkxrfc Note - Case ManagerInterdisciplinary Note - Shelter Supervisor CRM spoke with patient and grandaughter in room. Patient is alert and oriented and participates in discharge planning. Patient white board updated, and CRM contact information provided. Discussed CRMspoke with Dr Blackwood who saw patient earlier today and will keep NG tube in today, hoping to avoid needing surgery. Patient verified PCP, insurance and DME. Patient is form home with her spouse and he will transport at nd. Patient denies any H/h services but has used in the past. Granddaughter asking for PT eval as she has had some falls at home and feels she may be weaker d/t her illness. Will add PT eval. Reviewed Medicare rights, she denies any questions.[facility] Comment on above:Result Comment: Electronically Signed By: Jason RENEE, Shiloh\.br\Date and Time Signed: 06/16/24 12:44 EDTMagnesiumon 06-16-2024 Magnesium [Mass/Vol]2.0 mg/dLNormal1.3-2.4[facility] InstituteComment on above:Performed By: #### [id number] #### [facility] [address], [place] [address]oWWBqx 02-55-5915bJTE12 mL/min/1.73 n7Sidlmt>=59[facility] HospitalComment on above:Order Comment: Order added by Discern Expert. Performed By: #### [id number] #### [facility] [address], [place] [address]ZXGhk 42-00-3704Ycukiabxax [Mass/Vol]0.8 mg/dLNormal0.5-1.3 [facility] HospitalComment on above:Performed By: #### [id number] #### [facility] [address], [place] [address]Tqxevfc [Mass/Vol]176 mg/rQSbxsxw12-580BztmwwCleveland Clinic Fairview HospitalComment on above:Performed By: #### [id number] #### [facility] [address], [place] [address]Osww nitrogen [Mass/Vol]36 mg/dLHigh5-21[facility] HospitalComment on above:Performed By: #### [id number] #### [facility] [address], [place] [address]Irsb nitrogen/Creatinine [Mass ratio]45 No PxhgwVdtu96-47SguvsyCleveland Clinic Fairview HospitalComment on above:Performed By: #### [id number] #### [facility] [address], [place] [address]Uzqys gap [Moles/Vol]16 mmol/LNormal6-16[facility] HospitalComment on above:Performed By: #### [id number] #### [facility] [address], [place] [address]Iwwffef [Mass/Vol]10.7 mg/dLNormal8.9-11.1FThe MetroHealth SystemComment on above:Performed By: #### [id number] #### [facility] [address], [place] [address]Etxnoiyo [Moles/Vol]97 mmol/FAxq113-514AjgiucCleveland Clinic Fairview HospitalComment on above:Performed By: #### [id number] #### [facility] [address], [place] [address]YG5 [Moles/Vol]26 mmol/BBasyhw77-48SjkdobC[facility] Clinic [facility] Comment on above:Performed By: #### [id number] #### [facility] [address] [place] [address]Frgjbpfqu [Moles/Vol]3.9 mmol/LNormal3.5-5.3FThe MetroHealth SystemComment on above:Performed By: #### [id number] #### [facility] [address] [place] [address]Tajcrt [Moles/Vol]135 mmol/RXyktui369-269FfykwvCleveland Clinic Fairview HospitalComment on above:Performed By: #### [id number] #### [facility] [address] [place] [address]GXW w/ Auto Diffon 08-03-0555Yqsyarmqp/100 WBC (Bld)0.6 %Normal 0.0-2.0[facility] HospitalComment on above:Performed By: #### [id number] #### [facility] [address] [place] [address]67[address]Tpwisorfl/Leukocytes Auto (Bld) [Pure # fraction]0.1 E9/LNormal 0.0-0.2FThe MetroHealth SystemComment on above:Performed By: #### [id number] #### [facility] [address] [place] [address]Zwddzssahzl (Bld) [#/Vol]0.1 E9/LNormal0.0-0.5FThe MetroHealth SystemComment on above:Performed By: #### [id number] #### [facility] [address] [place] [address] [id number]/100 WBC (Bld)1.0 %Normal0.0-8.0[facility] HospitalComment on above:Performed By: #### [id number] #### [facility] [address] [place] [address] 22245Wlhmpymgvms distribution width (RBC) [Ratio]14.2 %Normal 10.9-14.2FThe MetroHealth SystemComment on above:Performed By: #### [id number] #### [facility] [address] [place] [address] 54385Tcsotgoepa (Bld) [Volume fraction]45.7 %Glsktd41.0-46.0[facility] HospitalComment on above:Performed By: #### [id number] #### [facility] [address] [place] [address] 22466Rhpenhrjvj (Bld) [Mass/Vol]15.3 g/yUSufzvt36.0-16.0[facility] HospitalComment on above:Performed By: #### [id number] #### [facility] [address] [place] [address] 30566Anelrxohkis (Bld) [#/Vol]1.3 E9/LNormal1.0-4.0[facility] HospitalComment on above:Performed By: #### [id number] #### [facility] [address] [place] [address] 89479Kyqjbcgqrec/100 WBC (Bld)9.3 %Low14.0-50.0[facility] HospitalComment on above:Performed By: #### [id number] #### [facility] [address] [place] [address] 60358LLN (RBC) [Entitic mass]31.7 toBprjxu07.0-34.0[facility] HospitalComment on above:Performed By: #### [id number] #### [facility] [address] [place] [address] 42304XRJG (RBC) [Mass/Vol]33.4 g/hNTqslii27.4-36.0[facility] HospitalComment on above:Performed By: #### [id number] #### [facility] [address] [place] [address] 33729TTL (RBC) [Entitic vol]94.8 sIVtdtvq81.0-100.0[facility] HospitalComment on above:Performed By: #### [id number] #### [facility] [address] [place] [address] 73945Mwhaszxlx (Bld) [#/Vol]1.1 E9/LHigh0.2-1.0[facility] HospitalComment on above:Performed By: #### [id number] #### [facility] [address] [place] [address] 02318Wtlxxkbldbm (Bld) [#/Vol]11.1 E9/LHigh2.0-7.5FThe MetroHealth SystemComment on above:Performed By: #### [id number] #### [facility] [address] [place] [address] 89473Gcqzljutxls/100 WBC (Bld)80.8 %High36.0-75.0[facility] HospitalComment on above:Performed By: #### [id number] #### [facility] [address] [place] [address] 28806Nhytopkm mean volume (Bld) [Entitic vol]9.7 fLNormal6.4-10.8 [facility] HospitalComment on above:Performed By: #### [id number] #### [facility] [address] [place] [address] 29479Zoqvrunpl (Bld) [#/Vol]259.0 E9/XBplkuu239.0-500.0[facility] HospitalComment on above:Performed By: #### [id number] #### [facility] [address] [place] [address] 17105XVG (Bld) [#/Vol]4.8 E12/LNormal4.3-5.9[facility] HospitalComment on above:Performed By: #### [id number] #### [facility] [address] [place] [address] 05039HNH corrected for nucl RBC Auto (Bld) [#/Vol]13.7 E9/LHigh 4.0-11.0[facility] HospitalComment on above:Performed By: #### [id number] #### [facility] [address] [place] [address] 94839QFACNMNLZDyeydsg By: SYSTEM SYSTEM on 71-72-6769Jxaoiu Acid Lvl 1.2 mmol/LNormal0.5 - 2.2 mmol/LRemisol ChemAlbumin [Mass/Vol]4.0 g/dLNormal3.3 - 5.0 gm/dLRemisol ChemAlbumin/Globulin [Mass ratio]1.0 {ratio}Low1.1 - 2.2 Remisol ChemALP [Catalytic activity/Vol]77 [iU]/iDtvxjy43 - 98 Int._Unit/L Remisol ChemALT No additional P-5'-P [Catalytic activity/Vol]13 [iU]/dNormal6 - 46 Int._Unit/LRemisol ChemAST [Catalytic activity/Vol]17 [iU]/dNormal5 - 43 Int._Unit/LRemisol ChemBilirubin [Mass/Vol]0.9 mg/dLNormal0.0 - 1.1 mg/dLRemisol ChemBilirubin.direct [Mass/Vol]0.1 mg/dLNormal0.0 - 0.4 mg/dLRemisol Chem Bilirubin.indirect [Mass or moles/Vol]0.8 mg/dLNormal0.1 - 0.9 mg/dLRemisol Chem Globulin (S) [Mass/Vol]4.2 g/dLHigh1.4 - 4.0 gm/dLRemisol ChemLipase [Catalytic activity/Vol]17 U/GLfrhpc82 - 58 unit/LRemisol ChemProtein [Mass/Vol]8.2 g/dL High6.0 - 7.8 gm/dLRemisol ChemTroponin HS5.60 pg/mLLow10.10 - 27.10 pg/mL Remisol ChemComment on above:Interpretive Data: The 95% CI (Confidence Interval) PPV (Positive Predictive Value) for myocardial infarction in females is 38 pg/mL, in males 51 pg/mL. The results should be used in conjunction withclinical conditions of myocardial infarction. (Access High Sensitivity Troponin I Instructions For Use, [facility], June 2018)CT Abdomen/Pelvis w/ Contraston [id number] Abdomen/Pelvis w/ ContrastExam Date/Time: 06/15/2024 16:49 EDT Reason for Exam: Pain Report IMPRESSION: MODERATE UNCOMPLICATED PROBABLY PARTIAL MID-DISTAL SMALL BOWEL OBSTRUCTION. CHRONIC AND POSTOPERATIVE CHANGES, NOTED. EXAM: CT Abdomen/Pelvis w/ Contrast DATE: 06/15/2024 4:31 PM CLINICAL HISTORY: Pain. COMPARISON: Chest CT 09/15/2023. TECHNIQUE: Spiral imaging was obtained of the abdomen and pelvis after the uneventful infusion of approximately 100 mL of Isovue [address] scans at this facility use dose modulation, iterative reconstruction, and/or weight based dosing when appropriate to reduce radiation dose to as low as reasonably achievable. Unless otherwise stated, incidental findings identified in this report do not require routine follow-up imaging. FINDINGS: Liver: No enlargement, significant fatty infiltration, suspicious mass or lesion. Approximately 2 cm probable hemangioma posteromedial aspect of the posterior superior segment of the right lobe. Biliary: The gallbladder is unremarkable. No abnormal biliary ductal dilatation. Pancreas: Probable distal pancreatectomy. No mass, organized fluid collection, or abnormal pancreatic ductal dilatation. Spleen: Previous laminectomy. Adrenals: Unremarkable. Kidneys: No hydronephrosis, significant urinary tract calculi, or suspicious mass. 1 cm nonenhancing right lower pole renal cyst. GI tract: Moderate distention of the stomach and proximal small bowel with fecalized contents and transition to collapsed loops in the anterior left lower quadrant, most consistent with a partial small bowel obstruction. No abnormal wall thickening, suspicious mass, surrounding inflammation, pneumatosis, or other complication. Mild sigmoid diverticulosis. The appendix is not confidently identified, without findings to suggest acute appendicitis. Lymph nodes: No pathologically enlarged lymph nodes. Mesentery/peritoneum: No ascites or mass. Retroperitoneum: No inflammatory changes or mass. Pelvis: The urinary bladder, uterus, and adnexa are unremarkable. No mass, organized fluid collection, or ascites. Report Vasculature: No aneurysm or dissection. Moderate atherosclerotic plaquing. Musculoskeletal: No acute osseous findings identified. Chronic moderate T10 compression fracture with previous vertebroplasty. Moderate degenerative changes of the lower lumbar spine. Lower thorax: Probable mild scarring and/or fibrotic changes, overall improved from 09/15/2023. Ordering Provider: Laura Newberry FINAL REPORT Dictated: 06/15/2024 5:08 pm Neftali Kumar MD Signed (Electronic Signature): 06/15/2024 5:08 pm Signed by: Neftali Kumar MD Transcribed by: KATHLEEN Technologist: NIKKI Technical Comments GFR (mL/min/1/73m2) 72 Contrast: Isovue 300 Contrast amount in ml's: 100NormalCleveland Clinic Fairview HospitalCapillary Glucose POCon 86-37-4167Rfmlzfy [Mass/Vol]99 mg/qDGlnwkb84-53GjnwubCleveland Clinic Fairview Hospital Comment on above:Result Comment: Cleaned MeterPerformed By: #### [id number] #### [facility] [address] [place], [place] [address]Zwegiww [Mass/Vol]89 mg/aYIavjzf67-72CqhtqbCleveland Clinic Fairview HospitalComment on above:Result Comment: Notified RN/MDPerformed By: #### [id number] #### [facility] [address] [place], [place] [address]NC Clinical Summaryon [id number] Clinical SummaryED Clinical Summary [address] [address] ED Clinical Summary Person Information Name: MICHELLE NASH [facility] Age: 83 Years : 1940 Sex: Female Language: Pakistani PCP: Natacha Oneill MD Marital Status: Phone: [phone] Visit Id: Visit Reason: Vomiting; Nausea; Abdominal pain; N/V ABD PAIN Speciality: Acuity: 3 Enc Type: Inpatient Med Service: Emergency Arrival: 06/15/2024 14:55:19 Discharge: LOS: 000 03:47 Checkin: 06/15/2024 14:55:19 Checkout: 06/15/2024 18:42:05 Dispo Type: Admitted as IP to this [facility] EVENTS: Event Name Event Status Request Date/Time Start Date/Time Complete Date/Time Arrive Complete 06/15/2024 14:55:19 06/15/2024 14:55:19 06/15/2024 14:55:19 Document Home Meds Request 06/15/2024 14:55:19 Triage Complete 06/15/2024 14:55:19 06/15/2024 15:18:24 06/15/2024 15:18:24 Bed Assign Complete 06/15/2024 15:14:13 06/15/2024 15:14:13 06/15/2024 15:14:13 Dr Exam Complete 06/15/2024 15:14:13 06/15/2024 15:24:35 06/15/2024 15:24:35 RN Exam Complete 06/15/2024 15:14:13 06/15/2024 16:06:58 06/15/2024 16:06:58 EKG Complete 06/15/2024 15:21:58 06/15/2024 15:40:42 Meds Admin Complete 06/15/2024 15:23:26 06/15/2024 15:42:09 Pending Labs Request 06/15/2024 15:23:26 Lab Complete 06/15/2024 15:23:26 06/15/2024 16:23:15 Registration Complete 06/15/2024 15:24:35 06/15/2024 16:04:58 06/15/2024 16:04:58 Dr Exam Complete 06/15/2024 15:26:48 06/15/2024 15:26:48 06/15/2024 15:26:48 Pending Labs Cancel 06/15/2024 15:32:51 06/15/2024 15:59:16 Pending Labs Complete 06/15/2024 15:47:34 06/15/2024 16:46:08 Lab Complete 06/15/2024 15:47:34 06/15/2024 16:46:08 CT Complete 06/15/2024 15:47:34 06/15/2024 16:31:07 06/15/2024 16:49:18 Pending Labs Complete 06/15/2024 15:58:28 06/15/2024 15:58:28 06/15/2024 16:23:15 Lab Complete 06/15/2024 15:58:28 06/15/2024 15:58:28 06/15/2024 16:23:15 Pending Labs Complete 06/15/2024 15:59:27 06/15/2024 15:59:27 06/15/2024 16:26:02 Reg Complete Request 06/15/2024 16:04:58 Reg Bed Request Complete 06/15/2024 16:04:58 06/15/2024 16:04:58 06/15/2024 16:04:58 Meds Admin Complete 06/15/2024 17:28:08 06/15/2024 17:59:23 Patient Care Request 06/15/2024 17:28:08 NPO Request 06/15/2024 17:53:19 Meds Admin Request 06/15/2024 17:53:19 Pending Labs Request 06/15/2024 17:53:19 Lab Request 06/15/2024 17:53:19 Patient Care Request 06/15/2024 17:53:19 Bed Request Request 06/15/2024 17:53:19 Reg Bed Request Complete 06/15/2024 17:53:19 06/15/2024 18:00:27 06/15/2024 18:00:27 Admit Request 06/15/2024 17:53:19 Patient Care Request 06/15/2024 18:00:27 Patient Care Request 06/15/2024 18:00:27 Patient Care Request 06/15/2024 18:00:28 Patient Care Request 06/15/2024 18:00:28 Medicare Form Complete 06/15/2024 18:00:28 06/15/2024 18:34:03 Patient Care Request 06/15/2024 18:00:29 Patient Care Request 06/15/2024 18:00:29 Meds Admin Request 06/15/2024 18:10:58 Meds Admin Request 06/15/2024 18:14:20 Patient Care Request 06/15/2024 18:14:20 Meds Admin Request 06/15/2024 18:16:25 ADDRESS: [address] [place] [phone] PHYS DOC NOTES: MEDICAL INFORMATION: Prescriptions Given: Medications to Continue with No Changes Other Medications albuterol (Albuterol (Eqv-ProAir HFA) 90 mcg/inh inhalation aerosol) INHALE 2 PUFFS BY MOUTH EVERY 6 HOURS. Refills: 0. atorvastatin (atorvastatin 10 mg Tab) 1 Tablets By Mouth at bedtime. Refills: 3. budesonide-formoterol (Symbicort 160/4.5 inhalation aerosol with adapter) 2 Puffs Inhalation 2 times a day. Refills: 0. cholecalciferol (Vitamin D 1000 intl units (25 mcg) Tab) 3 Tablets By Mouth every day. empagliflozin (Jardiance 10 mg oral tablet) TAKE 1 TABLET BY MOUTH EVERY MORNING. Refills: 3. fluconazole (Diflucan 150 mg Tab) 1 Tablets By Mouth Once. Refills: 0. insulin glargine (Lantus Solostar Pen 100 units/mL subcutaneous solution) INJECT 10 UNITS SUBCUATANEOUSLY TWICE A DAY. Refills: 1. insulin lispro (HumaLOG KwikPen 100 units/mL injectable solution) TID AC MEALS 150-200 2U, 201-250 4U, 251-300 6U, 301-350 8U,351-400 10U, > 401 12U AND CALL PCP. Refills: 0. losartan (losartan 50 mg Tab) TAKE 1 TABLET BY MOUTH DAILY. Refills: 3. Misc Prescription (BD UF Nanno pen needle 4mm x32G) Use one pen needle with each administration of lantus BID and humalog TID. Dx E11.9. Refills: 3. Misc Prescription (BLOOD GLUCOSE METER TEST STRIPS) BLOOD GLUCOSE METER TEST STRIPS OF CHOICE, OR SPECIFIED BY INSURANCE. USE WITH METER ONCE DAILY. DX E11.9. Refills: 11. Misc Prescription (Blood Pressure Monitor) Arm BP monitor. Refills: 0. Misc Prescription (Freestyle Eduar 2 Flash Glucose Monitoring 14 Day System ([place])) Freestyle Eduar Flash Glucose Monitoring 14 Day System ([place]). Refills: 0. Misc Prescription (Freestyle Eduar 2 Flash Glucose Monitoring 14 Day System (Sensor)) Freestyle Eduar Flash Glucose Monitoring 14 Day System (Sensor). Replace sensor every 14 days.. R (more content not included)...NormalFisher Dalton Medical CenterED Note-Physicianon [id number] Note-PhysicianED Note-Physician Basic Information Time Seen: Laura Newberry PA-C 06/15/2024 15:24 History of Present Illness 83-year-old female presents the ER complaining of 3 days of abdominal pain, nausea, vomiting. Patient reports both epigastric and lower abdominal pain which began 3 days ago. Describes as a sharp stabbing pain. Patient states that over the course of last 1 to 2 days she began having nausea and vomiting. Patient reports that she has been burping a lot. Reports 2 very small bowel movement today, reports decreased in flatus. Patient does have history of pancreatic surgery many years ago, she is uncertain of what exactly the surgery was but states that she had a mass on her pancreas that needed removed. Denies ever having bowel obstruction in the past. No fevers or chills. No diarrhea. Patient reports history of diabetes, hypertension. Reports that her blood sugars have been poorly controlledand they have been having bigger issues with hypoglycemia recently. Review of Systems All organ systems are reviewed. Pertinent positive and negative findings as mentioned in the HPI. Physical Exam Vitals & Measurements T: 36.7 ?C(Oral) HR: 101(Monitored) RR: 16 BP: 169/85 SpO2: 97% HT: 152 cm WT: 56 kg BMI: 24.24 GENERAL APPEARANCE: Pleasant elderly female, no acute distress, family at bedside. Alert and oriented. HEAD: normocephalic, atraumatic EYES: PERRL, EOMI. Vision is grossly intact. EARS: External auditory canals clear, hearing grossly intact. NOSE: No nasal discharge. THROAT: Oral cavity and pharynx normal. Oral mucosa moist. . CARDIAC: Normal heart sounds, no murmurs. Rhythm is regular. Extremities are warm and well perfused. LUNGS: Clear to auscultation without rales, rhonchi, wheezing or diminished breath sounds. ABDOMEN: Abdomen mildly distended, tympanic, tenderness to deep palpation of the left lower quadrant with voluntary guarding, no rebound tenderness. Patient does have ecchymosis noted to abdomen which she explains are from her insulin shots, tenderness does not overlie the ecchymosis MUSCULOSKELETAL: Adequately aligned spine. ROM intact spine and extremities. NEUROLOGICAL: CN grossly intact. Strength and sensation symmetric and intact throughout. SKIN: Skin normal color, texture and turgor with no lesions or eruptions. Assessment/Plan 1. SBO (small bowel obstruction) (K56.609: Unspecified intestinal obstruction, unspecified as to partial versus complete obstruction) 83-year-old female with past surgical history of pancreatectomy presents to the ER complaining of abdominal pain associate with nausea and vomiting. In the ER patient is afebrile, hypertensive, normal heart rate. Labs are reviewed noted, leukocytosis of 13.7 noted, no lactic acidosis. CT scan concerning for small bowel obstruction. NG tube was ordered along with pain medication and viscous lidocaine. Case was discussed with emergency general surgeon on-call, Dr. Morfin, who recommend admission to the EGS service. Dr. Morfin did present to the ER to examine the patient at bedside. All patient's questions were asked. Patient agreeable with plan. Medications Administered Given lidocaine Viscous Top 2% Lakia, 400 mg, Topical morphine 4 mg/mL Inj, 4 mg, IV Push NS 500 ml Bolus, 500 mL, IV ondansetron 4 mg/2 mL Inj, 4 mg, IV Push Zofran 4 mg/2 mL Injection, 4 mg, IV Push Disposition Plan Patient Discharge Condition Stable Discharge Disposition Admit to emergency general surgery service Discharge Prescription List Prescriptions No active prescription medications Follow-up No qualifying data available Attestation Patient was treated and evaluated by the Physician General Forecaster. The attending physician was in the Emergency Department at all times and supervised care. The case was discussed with the attending physician and diagnostics were reviewed as needed. 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 Medications Inpatient acetaminophen additive + Generic Diluent 100 mL Dilaudid 1 mg/mL injectable solution, 0.25 mg= 0.25 mL, IV Push, q4hr, PRN heparin 5000 units/mL Inj, 5000 unit(s)= 1 mL, SubCutaneous, q8hrFT Insulin Lispro Sliding Scale, 0-10 unit(s), SubCutaneous, q6hr ketorolac 15 mg/mL Inj, 15 mg= 1 mL, IV Push, q (more content not included)... [facility] HospitalComment on above:Result Comment: Electronically Signed By: Laura Newberry PA-C\.br\Date and Time Signed: 06/15/24 18:01 EDT\.br\Electronically Co-Signed By: Melida Chappell, Erwin Bernardo\.br\Date and Time Co-Signed: 06/15/24 18:48 EDTED Patient Education Noteon [id number] Patient Education NoteED Patient Education NoteNoJoint Township District [facility] Patient Summaryon [id number] Patient SummaryED Patient Summary [place] [id number] Patient Discharge Instructions Person Information Name: MICHELLE NASH Age: 83 Years Arrival Date: 06/15/2024 14:55:19 Discharge Diagnosis: 1:SBO (small bowel obstruction) Primary Care Physician: Natacha Oneill MD Provider Information Primary Provider: Erwin Montez M.D. Advanced Trailer Truck Driver:Laura Newberry PA-C The exam and treatment you received in the Emergency Department were for an urgent problem and are not intended as complete care. It is important that you follow up with a doctor, nurse practitioner,or physician?s call center assistant for ongoing care. If your symptoms become worse or you do not improve as expected and you are unable to reach your usual health care provider, you should return to the Emergency Department. We are available 24 hours a day. MICHELLE NASH has been given the following list of patient education materials, prescriptions and follow-up instructions: Follow-up Instructions: In the event that this physician does not participate in your insurance network, please consult with your insurance company to find a nearby participating provider. Patient Education Materials: A MESSAGE TO ALL PATIENTS REGARDING OPIOIDS PRESCRIPTION OPIOIDS: WHAT YOU NEED TO KNOW Prescription opioids can be used to help relieve wgajphmx-ur-shjwsu pain and are often prescribed following a surgery or injury, or for certain health conditions. These medications can be an important part of the treatment but also come with serious risks. It is important to work with your healthcare provider to make sure you are getting the safest, most effective care. WHAT ARE THE RISKS AND SIDE EFFECTS OF OPIOID USE? Prescription opioids carry serious risks of addiction and overdose, especially with prolonged use. An opioid overdose, often marked by slowed breathing, can cause sudden . The use of prescription opioids can have a number of side effects as well, even when taken as directed: ? Tolerance?meaning you might need to take more of the medication for the same pain relief ? Physical dependence?meaning you have symptoms of withdrawal when a medication is stopped ? Increased sensitivity to pain ? Constipation ? Nausea, vomiting, and dry mouth ? Sleepiness and dizziness ? Confusion ? Depression ? Low levels of testosterone that can result in lower sex drive, energy, and strength ? Itching and sweating RISKS ARE GREATER WITH: ? History of drug misuse, substance use disorder, or overdose ? Mental health conditions (such as depression or anxiety) ? Sleep apnea ? Older age (65 years and older) ? Avoid alcohol while taking prescription opioids. Also, unless specifically advised by your health care provider, medications to avoid include: ? Benzodiazepines (such as Xanax or Valium) ? Muscle relaxants (such as Soma or Flexeril) ? Hypnotics (such as Ambien or Lunesta) ? Other prescription opioids KNOW YOUR OPTIONS Talk to your health care provider about ways to manage your pain that don?t involve prescription opioids. Some of these options may actually work better and have fewer risks and side effects. Optionsmay include: ? Pain relievers such as acetaminophen, ibuprofen, and naproxen ? Some medication that are also used for depression or seizures ? Physical therapy and exercise ? Cognitive behavioral therapy, a psychological, goal-directed approach, in which patients learn how to modify physical, behavioral, and emotional triggers of pain and stress. IF YOU ARE PRESCRIBED OPIOIDS FOR PAIN: ? Never take opioids in greater amounts or more often than prescribed. ? Follow up with your primary health care provider. o Work together to create a plan on how to manage your pain. o Talk about ways to help manage your pain that don?t involve prescription opioids. o Talk about any and all concerns and side effects. ? Help prevent misuse and abuse o Never sell or share prescription opioids. o Never use another person?s prescription opioids. ? Store prescription opioids in a secure place and out of reach of others (this may include visitors, children, friends, and family). ? Safely dispose of unused prescription opioids: Find your community drug take- back program or your[employer] mail-back program, or flush them down the toilet, following guidance from the Food and Drug Administration (www.fda.gov/Drugs/ResourcesForYou). ? Visit www.cdc.gov/drugoverdose to learn about the risks of opioids abuse and overdose. ? If you believe you may be struggling with addiction, tell your health healthcare interpreter and ask for guidance or call [facility]?S National Helpline at 4-952-416-ZZSU. r Source: US Department of Health and Human Services/Center for Disease Control & Prevention [facility] Medication (more content not included)...NormalCleveland Clinic Fairview HospitalHep Func Panelon [id number]/Globulin (S) [Mass conc ratio]1.0Low1.1-2.2FThe MetroHealth SystemComment on above:Performed By: #### [id number] #### [facility] [address], [place] [address]EOK [Catalytic activity/Vol]77 Int._Unit/ORncttr98-17GatupaCleveland Clinic Fairview HospitalComment on above:Performed By: #### [id number] #### [facility] [address], [place] [address]MTD No additional P-5'-P [Catalytic activity/Vol]13 Int._Unit/L Normal6-46C[facility] Clinic Fairview HospitalComment on above:Performed By: #### [id number] #### [facility] [address], [place] [address]OKY [Catalytic activity/Vol]17 Int._Unit/LNormal5-43[facility] HospitalComment on above:Performed By: #### [id number] #### [facility] [address], [place] [address]Zcopebyb (S) [Mass/Vol]4.2 g/dLHigh1.4-4.0[facility] HospitalComment on above:Performed By: #### [id number] #### [facility] [address], [place] [address]Evwwqrk [Mass/Vol]8.2 g/dLHigh6.0-7.8[facility] HospitalComment on above:Performed By: #### [id number] #### [facility] [address], [place] [address]Fudkkfn [Mass/Vol]4.0 g/dLNormal3.3-5.0[facility] HospitalComment on above:Performed By: #### [id number] #### [facility] [address] [place] [address]Picnqczav [Mass/Vol]0.9 mg/dLNormal0.0-1.1FThe MetroHealth SystemComment on above:Performed By: #### [id number] #### [facility] [address] [place] [address]Yyfhuhuec.direct [Mass/Vol]0.1 mg/dLNormal0.0-0.4FThe MetroHealth SystemComment on above:Performed By: #### [id number] #### [facility] [address] [place] [address]Bdybolctt.indirect [Mass or moles/Vol]0.8 mg/dLNormal0.1-0.9 [facility] HospitalComment on above:Performed By: #### [id number] #### [facility] [address] [place] [address]Egdljd Acidon 64-46-9466Oincqh Acid Lvl1.2 mmol/LNormal0.5-2.2 [facility] HospitalComment on above:Performed By: #### [id number] #### [facility] [address] [place] [address]Nttgtw Levelon 83-04-1336Zzctqg [Catalytic activity/Vol]17 U/L Bkajxj04-41FijfojCleveland Clinic Fairview HospitalComment on above:Performed By: #### [id number] #### [facility] [address] [place] [address]Cypdwivf 0 Hr.on 84-81-9563Qwrnfjsx HS5.60 pg/mLLow10.10-27.10 [facility] HospitalComment on above:Result Comment: The 95% CI (Confidence Interval) PPV (Positive Predictive Value) for myocardial infarction in females is 38 pg/mL, in males 51 pg/mL. The results should be used in conjunction with clinical conditions of myocardial infarction. (Access High Sensitivity Troponin I Instructions For Use, Emerita Christine, June 2018)Performed By: #### [id number] #### Jack [facility] [address], [place] [address]xEAXgo 86-04-7042lCAF80 mL/min/1.73 f6Vfphzl>=59Fisher [facility] Orthopaedic InstituteComment on above:Order Comment: Order added by Discern Expert. Performed By: #### [id number] #### Jack [facility] [address], [place] [address]Voauly Summary.on 56-98-0510Bjteye Summary. JXAJPblk08QPv5nYl+PGhlYWQ+CK9YLSRoO52npETcdW3vG8JDWEtRWetcHWWYDFpVMnAghbUcRI4cpN NjZXJu [file] aQMnk4W4YDVgi (more content not included)...[facility] Urineon 12-35-7375Mqhhjbdc identified Cx Nom (U)Microbiology PROCEDURE: Urine Culture [R1] SOURCE: U CleanCatch BODY SITE: COLLECTED DATE/TIME: 05/16/2024 11:49 EDT RECEIVED DATE/TIME: 05/16/2024 18:21 EDT START DATE/TIME: 05/16/2024 18:21 EDT FREE TEXT SOURCE: Mai VALENTINE, Natacha Oneill MD, Natacha Concepcion FINAL REPORTS Final Report [] Verified Date/Time: 05/18/2024 09:41 EDT 70,000 cfu/ml Enterobacter cloacae 5,000 cfu/ml Mixed skin contaminants SUSCEPTIBILITY RESULTS LEGEND: S=Susceptible, N/R=Not Reported, Blank=Data not available, or drug not advisable or tested, I=Intermediate, ESBL=Extended spectrum beta-lactamase, R=Resistant, TFG=Thymidine-dependent strain, DEBI=Beta-lactamase positive, ALISSA=mcg/m;(mg/L), S*=Predicted susceptible interp, R*=Predicted resistant interp Entclo Antibiotic ALISSA Dilutn ALISSA Interp Ampicillin >16 R Ampicillin/ 16/8 R* Sulbactam Aztreonam <=4 S Cefazolin >16 R Cefepime <=2 S Ceftazidime >16 R Ceftazidime/ <=8 S Avibactam Ceftriaxone >2 R Cefuroxime >16 R Ciprofloxacin <=0.25 S Ertapenem <=0.5 S Gentamicin <=2 S Levofloxacin <=0.5 S Meropenem <=1 S Nitrofurantoin >64 R Piperacillin/ <=8 S Tazobactam Tetracycline <=4 S Tobramycin <=2 S Trimethoprim/ <=2/38 S Sulfa Performing Locations R1: This test was performed at: [facility], [address] [place] [address], [facility] , , HilotjFkhkqzMorrow County HospitalComment on above:Performed By: #### [id number] #### [facility] [address] [place], [place] [address]Nurse Consultation Noteon 53-00-9799Hqzpl Consultation Note Reason for Visit repeat urine culture Medications Albuterol (Eqv-ProAir HFA) 90 mcg/inh inhalation aerosol, See Instructions atorvastatin 10 mg Tab, 10 mg= 1 tab(s), Oral, Bedtime, 3 refills, Investigating BD UF Nanno pen needle 4mm x32G, See Instructions, 3 refills BLOOD GLUCOSE METER TEST STRIPS, See Instructions, 11 refills Blood Pressure Monitor, See Instructions Diflucan 150 mg Tab, 150 mg= 1 tab(s), Oral, Once Freestyle Eduar 2 Flash Glucose Monitoring 14 Day System ([place]), See Instructions Freestyle Eduar 2 Flash Glucose Monitoring 14 Day System (Sensor), See Instructions Freestyle Eduar 2 sensor, See Instructions, 1 refills Glucose Kit, See Instructions HumaLOG KwikPen 100 units/mL injectable solution, See Instructions Jardiance 10 mg oral tablet, See Instructions LANCETS OF CHOICE OR SPECIFIED BY INSURANCE., See Instructions, 11 refills Lantus Solostar Pen 100 units/mL subcutaneous solution, See Instructions losartan 50 mg Tab, See Instructions, 3 refills multivitamin, 1 tab(s), Oral, Daily omeprazole 20 mg Cap-DR, 20 mg= 1 cap(s), Oral, Daily Pen [place], See Instructions, 3 refills PreserVision AREDS, See Instructions propranolol 60 mg oral tablet, 60 mg= 1 tab(s), Oral, Bedtime, 3 refills Symbicort 160/4.5 inhalation aerosol with adapter, 2 puff(s), Inhalation, BID tizanidine 4 mg oral capsule, 4 mg= 1 cap(s), Oral, Bedtime traZODONE 50 mg Tab, See Instructions Vitamin D 1000 intl units (25 mcg) Tab, 75 mcg= 3 tab(s), Oral, Daily Allergies No Known Medication Allergies Immunizations Vaccine Date Status Comments pneumococcal 13-valent vaccine 11/03/2023 Recorded influenza virus vaccine, inactivated 10/19/2023 Recorded influenza virus vaccine, inactivated - Not Given Postpone due to refusal influenza virus vaccine, inactivated - Not Given Postpone due to refusal will get when feeling better SARS-CoV-2 (COVID-19) mRNAMUL.ORD![id number] 09/14/2022 Recorded influenza virus vaccine, inactivated 09/06/2022 Recorded SARS-CoV-2 (COVID-19) mRNA-1273 vaccine 10/01/2021 Given influenza virus vaccine, inactivated 09/20/2021 Recorded SARS-CoV-2 (COVID-19) mRNA-1273 vaccine 01/08/2021 Recorded SARS-CoV-2 (COVID-19) mRNA-1273 vaccine 12/11/2020 Recorded zoster vaccine, inactivated 08/26/2019 Recorded influenza virus vaccine, live, trivalent 08/21/2019 Recorded pneumococcal 23-valent vaccine 10/07/2005 Recorded influenza, whole 10/07/2005 RecordedNoMansfield HospitalUA With Cult Reflexon 93-83-3531Ktso of Urine collection methodClean CatchNoMansfield HospitalComment on above:Performed By: #### [id number] #### [facility] [address], [place] [address]Qxhbmfyun Ql (U)NegativeNormalNegativeCleveland Clinic Fairview HospitalComment on above:Performed By: #### [id number] #### [facility] [address], [place] [address]Vmsfrlm (U)ClearNormalClearCleveland Clinic Fairview HospitalComment on above:Performed By: #### [id number] #### [facility] [address], [place] [address]Vslkj (U)YellowNormalYellowCleveland Clinic Fairview HospitalComment on above:Result Comment: Microscopic readings are only performed on those samples that meet specific criteria set forth by [facility].Performed By: #### [id number] #### [facility] [address], [place] [address]Qzzrznjtgt cells.squamous Auto (Urine sed) [#/Area]0-2Invalid Interpretation CodeCleveland Clinic Fairview HospitalComment on above:Performed By: #### [id number] #### [facility] [address], [place] [address]Uclgong Ql (U)4+ mg/dLAbnormalNegativeCleveland Clinic Fairview HospitalComment on above:Performed By: #### [id number] #### [facility] [address], [place] [address]Itrdonrkmm Auto test strip (U) [Mass/Vol]NegativeNormalNegative [facility] HospitalComment on above:Performed By: #### [id number] #### [facility] [address], [place] [address]Athxifn Auto test strip Ql (U)NegativeNormalNegativeCleveland Clinic Fairview HospitalComment on above:Performed By: #### [id number] #### Santiago [facility] [address] [place] [address]Oipukibcq esterase Auto test strip Ql (U)25 Josue/uLNormal NegativeCleveland Clinic Fairview HospitalComment on above:Performed By: #### [id number] #### Santiago [facility] [address] [place] [address]Rcyjt Auto Ql (U)NegativeNormalNegativeCleveland Clinic Fairview HospitalComment on above:Performed By: #### [id number] #### [facility] [address] [place] [address]Ohnnazk Auto test strip Ql (U)NegativeNormalNegativeCleveland Clinic Fairview HospitalComment on above:Performed By: #### [id number] #### Santiago [facility] [address] [place] [address]dU (U)6.5 [pH]Invalid Interpretation Code5.0-9.0[facility] HospitalComment on above:Performed By: #### [id number] #### [place] [facility] [address] [place] [address]Zjhmcpz Ql (U)NegativeNormalNegativeC[facility] Comment on above:Performed By: #### [id number] #### [facility] [address] [place] [address]SKT Ql (U)2-39Gchlcqdv7-4Auvytj [facility] Orthopaedic InstituteComment on above:Performed By: #### [id number] #### [facility] [address], [place] [address]Jpbteckq gravity (U) [Rel density]1.028Invalid Interpretation Code1.005-1.030[facility] HospitalComment on above:Performed By: #### [id number] #### [facility] [address] [place] [address]Oijjhnjmeuqa (U) [Mass/Vol]NegativeNormalNegativeFisher [facility] Orthopaedic InstituteComment on above:Performed By: #### [id number] #### [place] [facility] [address], [place] [address]WHI Auto (Urine sed) [#/Area]76-22Asizbvmk2-0Pgfnmv [facility]opa[facility] InstituteComment on above:Performed By: #### [id number] #### [place] [facility] [address], [place] [address]XJCBJZWLYCGvphced By: SYSTEM SYSTEM on 82-20-7369Mkrtleicq Ql (U)NegativeNormalNegativemg/dLFT UA Auto SSClarity (U)Clear (05/16/24 11:49 AM)NormalClearFTMC UA Auto SSColor (U)Yellow 1 (05/16/24 11:49 AM)NormalYellowJIM TALIAFERRO [facility] UA Auto SSComment on above:Interpretive Data: Microscopic readings are only performed on those samples that meet specific criteria set forth by [facility].Epithelial cells.squamous Auto (Urine sed) [#/Area]0-2 graded/HPFInvalid Interpretation CodeFT UA Auto SSGlucose Ql (U)4+ mg/dLInvalid Interpretation Code Negativemg/dLFTMC UA Auto SSHemoglobin Auto test strip (U) [Mass/Vol]Negative NormalNegativemg/dLFTMC UA Auto SSKetones Auto test strip Ql (U)NegativeNormal Negativemg/dLFTMC UA Auto SSLeukocyte esterase Auto test strip Ql (U)25 Josue/uL Josue/uLNormalNegativeLeu/uLFT UA Auto SSMucus Auto Ql (U)NegativeNormal Negativegraded/LPFFTMC UA Auto SSNitrite Auto test strip Ql (U)NegativeNormal Negativemg/dLFTMC UA Auto SSpH (U)6.5 *NA* (05/16/24 11:49 AM)Invalid Interpretation Code5.0 - 9.0FT UA Auto SSProtein Ql (U)NegativeNormalNegativemg/dLFTMC UA Auto SSRBC Ql (U)4-20 graded/HPFInvalid Interpretation Code0-3graded/HPFFTMC UA Auto SSSpecific gravity (U) [Rel density]1.028 *NA* (05/16/24 11:49 AM)Invalid Interpretation Code1.005 - 1.030[facility] UA Auto SS Urobilinogen (U) [Mass/Vol]NegativeNormalNegativemg/dLJIM [facility] UA Auto SSWBC Auto (Urine sed) [#/Area]16-25 graded/HPFInvalid Interpretation Code0-5graded/HPFJIM [facility]ALIA[facility]ERRO [facility] UA Auto SSURINALYSISOrdered By: Tita Rodriges on [id number] Spec DescClean Catch (05/16/24 11:49 AM)NormalJIM [facility]IA[facility]ERR[facility] UA Auto SSC Urineon 94-35-7182Owlwkuoa identified Cx Nom (U)Microbiology PROCEDURE: Urine Culture [R1] SOURCE: U Random BODY SITE: COLLECTED DATE/TIME: 05/02/2024 13:49 EDT RECEIVED DATE/TIME: 05/02/2024 18:49 EDT START DATE/TIME: 05/02/2024 18:49 EDT FREE TEXT SOURCE: Mai VALENTINE, Natacha Oneill MD, Natacha Concepcion FINAL REPORTS Final Report [] Verified Date/Time: 05/04/2024 11:19 EDT 75,000 cfu/ml Escherichia coli SUSCEPTIBILITY RESULTS LEGEND: S=Susceptible, N/R=Not Reported, Blank=Data not available, or drug not advisable or tested, I=Intermediate, ESBL=Extended spectrum beta-lactamase, R=Resistant, TFG=Thymidine-dependent strain, DEBI=Beta-lactamase positive, ALISSA=mcg/m;(mg/L), S*=Predicted susceptible interp, R*=Predicted resistant interp EC Antibiotic ALISSA Dilutn ALISSA Interp Amikacin <=16 S Ampicillin <=8 S Ampicillin/ <=8/4 S Sulbactam Aztreonam <=4 S Cefazolin <=2 S Cefepime <=2 S Cefoxitin <=8 S Ceftazidime <=1 S Ceftazidime/ <=8 S Avibactam Ceftriaxone <=1 S Ciprofloxacin <=1 S Ertapenem <=0.5 S Gentamicin <=4 S Levofloxacin <=2 S Meropenem <=1 S Nitrofurantoin <=32 S Piperacillin/ <=16 S Tazobactam Tetracycline <=4 S Tigecycline <=2 S Tobramycin <=4 S Trimethoprim/ <=2/38 S Sulfa Performing Locations R1: This test was performed at: [facility], [address] [place] [address], [facility] , , QzasskYopameMansfield HospitalComment on above:Performed By: #### [id number] #### [facility] [address] [place] [id number] By: Amira Case on 35-74-0791Lfxenkdll Ql (U) Negative (01/27/24 4:00 PM)NormalNegativeJIM [facility] UA Auto SSClarity (U)Clear (01/27/24 4:00 PM)NormalClearFMUSCOGEE UA Auto SSColor (U)Yellow (01/27/24 4:00 PM)NormalYellowJIM [facility]FERR[facility] UA Auto SSCrystals LM Ql (Urine sed)Present (01/27/24 4:00 PM)NormalJIM [facility]AL[facility]ERR[facility] UA Auto SSEpithelial cells.squamous LM.HPF (Urine sed) [#/Area]0-2 /HPFNormal0-2/HPFJIM [facility]ALIA[facility]ERRO [facility] UA Auto SSGlucose Test strip (U) [Mass/Vol]3+ *ABN* (01/27/24 4:00 PM)Invalid Interpretation CodeNegativeFT UA Auto SSHemoglobin Ql (U)Negative (01/27/24 4:00 PM)NormalNegativeJIM [facility] UA Auto SSKetones (U) [Mass/Vol]Negative (01/27/24 4:00 PM)NormalNegativeJIM [facility] UA Auto SSLithium.plasma/[place].RBC (Bld) [Mass ratio]0-3 /HPFNormal0-3/HPFFTMC UA Auto SSMucus Ql (Urine sed)Trace (01/27/24 4:00 PM)NormalJIM [facility]AL[facility]ERR[facility] UA Auto SSNitrite Ql (U)Negative (01/27/24 4:00 PM)NormalNegativeJIM [facility] UA Auto SSpH (U)5.5 *NA* (01/27/24 4:00 PM)Invalid Interpretation Code5.0 - 9.0[facility] UA Auto SSProtein (U) [Mass/Vol]Negative (01/27/24 4:00 PM)NormalNegativeJIM [facility] UA Auto SSSpecific gravity (U) [Rel density] 1.015 *NA* (01/27/24 4:00 PM)Invalid Interpretation Code1.005 - 1.030[facility] UA Auto SSUA Spec DescClean Catch (01/27/24 4:00 PM)NormalJIM [facility]AL[facility]ERR[facility] UA Auto SSUrobilinogen Qn (U)0.8016823 {Vincent'U}/dLNormal0.0 - 1.0 EU/dLJIM [facility]ALIA[facility]ERRO [facility] UA Auto SSWBC Auto Ql (U)Negative (01/27/24 4:00 PM)NormalNegativeJIM [facility] UA Auto SSWBC LM.HPF (Urine sed) [#/Area]0-5 /HPFNormal0-5/HPFFTMC UA Auto SSBASIC METABOLIC PANELon 43-05-8385Ratel gap [Moles/Vol]11 mmol/PQeshix35-38Qtl [facility] SystemComment on above:Performed By: #### MG, CH8, PHOS #### [facility] [address] [place] [address], [address]Llknocf [Mass/Vol]9.1 mg/dLNormal8.6-10.3The [facility] SystemComment on above:Result Comment: Note updated reference ranges.Performed By: #### MG CH8, PHOS #### [facility] [address] [place], [address]Wwjgrcaa [Moles/Vol]103 mmol/PMbizyx00-844Ngw [facility] SystemComment on above:Result Comment: Note updated reference ranges.Performed By: #### MG CH8, PHOS #### [facility] [address] [place], [address]VK3 [Moles/Vol]27 mmol/SMvivdl51-46Rne [facility] Health[facility]Health SystemComment on above:Result Comment: Note updated reference ranges.Performed By: #### MG, CH8, PHOS #### [facility] [address] [place] [address], [address]Itoejjycwq [Mass/Vol]0.62 mg/dLNormal0.60-1.20The [facility] SystemComment on above:Result Comment: Note updated reference ranges.Performed By: #### MG CH8, PHOS #### [facility] [address] [place] [address], [address]WMRUDKKJR GFR (CKD-EPI)88 mL/min/1.73sqmNormal>=60The [facility] SystemComment on above:Result Comment: 2020 CKD EPI Equation using Creatinine without Race Comment: Estimated glomerular filtration rate (eGFR) is calculated without a race coefficient. Values should be interpreted in the context of the patient's full clinical presentation. Reference: 1. Darrell C, eBtzy M, Patricia VILLALTA, et al.. A Unifying Approach for GFR Estimation: Recommendations of the NKF-ASN Task Force on Reassessing the Inclusion of Race in Diagnosing Kidney Disease. AmericanJournal of Kidney Diseases 2021;79(2):268-88.e1. 2. N Engl J Med 1 Vol. 385 Issue 19 Pages 1524-5060Performed By: #### MG, CH8, PHOS #### [facility] [address] [place], [address]Axzzjzj [Mass/Vol]125 mg/kEBixl46-184Tsd [facility] SystemComment on above:Performed By: #### MG CH8, PHOS #### [facility] [address] [place], [address]Ndxfzunai [Moles/Vol]4.5 mmol/LNormal3.5-5.0The [facility] HealthroHealth SystemComment on above:Result Comment: Note updated reference ranges. Note updated reference ranges.Performed By: #### MGJUAN, PHOS #### [facility] [address] [place], [address]Eqvttt [Moles/Vol]136 mmol/AQonctc063-542Atn [facility] HealthroHealth SystemComment on above:Result Comment: Note updated reference ranges.Performed By: #### MGJUAN, PHOS #### [facility] [address] [place], [address]Fqnt nitrogen [Mass/Vol]22 mg/dLNormal7-25The [facility] HealthroHealth SystemComment on above:Result Comment: Note updated reference ranges.Performed By: #### MGJUAN, PHOS #### [facility] [address] [place] [address], [address]Ibzxb metabolic 2000 panelon 56-83-0150Rcgpe gap [Moles/Vol]11 mmol/L10 - 20MetroHealthCalcium [Mass/Vol]9.1 mg/dL8.6 - 10.3 mg/dLMetroHealthComment on above:Note updated reference ranges.Chloride [Moles/Vol]103 mmol/L98 - 107 mmol/LMetroHealthComment on above:Note updated reference ranges.CO2 [Moles/Vol]27 mmol/L21 - 31 mmol/LMetroHealthComment on above:Note updated reference ranges.Creatinine [Mass/Vol]0.62 mg/dL0.60 - 1.20 mg/dLMetroHealthComment on above:Note updated reference ranges.GFR/1.73 sq M.predicted CKD-EPI (S/P/Bld) [Vol rate/Area]88- PINFMetroHealthComment on above:2020 CKD EPI Equation using Creatinine without Race Comment: Estimated glomerular filtration rate (eGFR) is calculated without a race coefficient. Values should be interpreted in the context of the patient's full clinical presentation. Reference: 1. Darrell Garzon, Betzy Mendiola, Patricia VILLALTA, et al.. A Unifying Approach for GFR Estimation: Recommendations of the NKF-ASN Task Force on Reassessing the Inclusion of Race in Diagnosing Kidney Disease. AmericanJournal of Kidney Diseases 202;79(2):268-88.e1. 2. N Engl J Med 2020 Vol. 385 Issue 19 Pages 5096-5765 Glucose [Mass/Vol]125 mg/fNZzzx85 - 109 mg/dLMetroHealthInterpretation and review of laboratory resultsAbnormalMetroHealthPotassium [Moles/Vol]4.5 mmol/L 3.5 - 5.0 mmol/LMetroHealthComment on above:Note updated reference ranges. Note updated reference ranges. Sodium [Moles/Vol]136 mmol/L136 - 145 mmol/LMetroHealthComment on above:Note updated reference ranges.Urea nitrogen [Mass/Vol]22 mg/dL7 - 25 mg/dLMetroHealth Comment on above:Note updated reference ranges.CALCIUM, IONIZEDon 67-27-7867VM ICA1.22 mmol/LNormal1.15-1.33The [facility] Regional HospitalTRACON Pharmaceuticals SystemComment on above:Result Comment: This test was developed, and its performance characteristics determined by the Department of Pathology of [facility]. It has not been cleared or approved by the FDA. This test is used for clinical purposes only. Performed By: #### LACT, CR ICA #### [facility] [address] [place] [address], [address]XEW panel Auto (Bld)on 06-62-2159Ymrnwchtykj distribution width (RBC) [Ratio]14.0 %11.5 - 14.5 %MetroHealthHematocrit (Bld) [Volume fraction]35.9 %Low36.0 - 46.0 %MetroHealthHemoglobin (Bld) [Mass/Vol] 11.8 g/dLLow12.0 - 15.0 g/dLMetroHealthInterpretation and review of laboratory resultsAbnormalMetroHealthMCH (RBC) [Entitic mass]32.2 pg26.0 - 34.0 pg MetroHealthMCHC (RBC) [Mass/Vol]33.0 g/dL32.0 - 35.9 g/dLMetroHealthMCV (RBC) [Entitic vol]98 fL80 - 100 fLMetroHealthPlatelet mean volume (Bld) [Entitic vol] 9.7 fL7.5 - 11.2 fLMetroHealthPlatelets (Bld) [#/Vol]257 10*3/uL150 - 400 K/uL MetroHealthRBC (Bld) [#/Vol]3.67 10*6/uLLowMetroHealthWBC (Bld) [#/Vol]6.0 10*3/uL4.5 - 11.5 K/uLMetroHealthMetroHealthCOMPLETE BLOOD COUNTon 01-05-2024 Erythrocyte distribution width (RBC) [Ratio]14.0 %Ixmubv38.5-14.5The [facility] HealthroHealth SystemComment on above:Performed By: #### LACT, CR ICA #### [facility] [address] [place] [address], [address]Nopijnxnce (Bld) [Volume fraction]35.9 %Low36.0-46.0The [facility] HealthroHealth SystemComment on above:Performed By: #### LACT, CR ICA #### [facility] [address] [place] [address], [address]Jryhxzrsmk (Bld) [Mass/Vol]11.8 g/dLLow12.0-15.0The [facility] HealthroHealth SystemComment on above:Performed By: #### LACT, CR ICA #### [facility] [address] [place] [address], [address]HMK (RBC) [Entitic mass]32.2 fcXkscjd38.0-34.0The [facility] HealthroHealth SystemComment on above:Performed By: #### LACT, CR ICA #### [facility] [address] [place] [address], [address]EVPT (RBC) [Mass/Vol]33.0 g/bDQtdtqw62.0-35.9The [facility] HealthroHealth SystemComment on above:Performed By: #### LACT, CR ICA #### [facility] [address] [place] [address], [address]WAV (RBC) [Entitic vol]98 lNLiatyz57-268Hqe MetroHealth SystemComment on above:Performed By: #### LACT, CR ICA #### [facility] [address] [place] [address], [address]Xprgksqq mean volume (Bld) [Entitic vol]9.7 fLNormal 7.5-11.2The MetroHealth SystemComment on above:Performed By: #### LACT, CR ICA #### [facility] [address] [place] [address], [phone] (Bld) [#/Vol]257 10*3/aYYoqmcf587-176Xxw MetroHealth SystemComment on above:Performed By: #### LACT, CR ICA #### S PATHOLOGY LABORATORY [address] [place] [address], [phone] (Bld) [#/Vol]3.67 10*6/uLLow4.00-5.20The MetroHealth SystemComment on above:Performed By: #### LACT, CR ICA #### S PATHOLOGY LABORATORY [address] [place] [address], [address]YFR (Bld) [#/Vol]6.0 10*3/uLNormal4.5-11.5The MetroHealth SystemComment on above:Performed By: #### LACT, CR ICA #### [facility] PATHOLOGY LABORATORY [address] [place] [address], [phone] Plan Noteon [id number] Authentication Interface Message TextNormKettering Health Hamilton SystemTranscription Authentication Interface Message TextNormKettering Health Hamilton SystemTranscription Authentication Interface Message TextProblem: Routine Care: Goal: Patient care will be managed and maintained throughout hospital stay per unit specific routine care procedure Outcome: Progressing Problem: Impaired Mobility: Goal: Ability to maintain or regain baseline function will be acheived Outcome: Progressing Goal: Will be free of DVT Outcome: Progressing Problem: VTE Prophylaxis: Goal: Will be free of DVT Outcome: Progressing Problem: Fluid and Electrolyte Imbalance: Goal: Adequate fluid and electrolyte balance will be achieved and maintained Outcome: Progressing Problem: Altered Neurological Status: Goal: Optimal neurological status will be maintained or regained Outcome: Progressing Goal: Altered Level of Consciousness will improve Outcome: Progressing Problem: Acute Pain: Goal: Ability to identify pain intensity on a pain scale and rate it consistently will be achieved and maintained Outcome: Progressing Goal: Acceptable level of pain which allows the patient to achieve functional outcome goals Outcome: Progressing Problem: Safety: Goal: Patient will remain free of falls during hospital stay Outcome: Progressing Goal: Free from injury during hospitalization Outcome: Progressing Problem: Discharge Planning: Goal: Discharge needs of the adult patient will be met Outcome: Progressing Problem: Glucose Imbalance: Goal: Ability to maintain appropriate glucose levels will be achieved and maintained Outcome: ProgressingNoHarris Regional HospitalTRACON Pharmaceuticals SystemTranscription Authentication Interface Message TextProblem: Routine Care: Goal: Patient care will be managed and maintained throughout hospital stay per unit specific routine care procedure Outcome: Progressing Problem: Impaired Mobility: Goal: Ability to maintain or regain baseline function will be acheived Outcome: Progressing Goal: Will be free of DVT Outcome: Progressing Problem: VTE Prophylaxis: Goal: Will be free of DVT Outcome: Progressing Problem: Fluid and Electrolyte Imbalance: Goal: Adequate fluid and electrolyte balance will be achieved and maintained Outcome: Progressing Problem: Altered Neurological Status: Goal: Optimal neurological status will be maintained or regained Outcome: Progressing Goal: Altered Level of Consciousness will improve Outcome: Progressing Problem: Acute Pain: Goal: Ability to identify pain intensity on a pain scale and rate it consistently will be achieved and maintained Outcome: Progressing Goal: Acceptable level of pain which allows the patient to achieve functional outcome goals Outcome: Progressing Problem: Safety: Goal: Patient will remain free of falls during hospital stay Outcome: Progressing Goal: Free from injury during hospitalization Outcome: Progressing Problem: Discharge Planning: Goal: Discharge needs of the adult patient will be met Outcome: Progressing Problem: Glucose Imbalance: Goal: Ability to maintain appropriate glucose levels will be achieved and maintained Outcome: ProgressingUNC Health Pardee [facility] Belt Maker Authentication Interface Message TextSW/CM has reviewed patient's chart and assessed that there are no discharge planning needs at this time. The following was reviewed to determine no SW/CM needs warranted. 1). PT/OT evaluations indicate pt can DC home with no needs or PT/OT evaluations are not warranted. 2). No wound care or IV Antibiotics indicated at this time. 3). No SW/CM consults placed through nursing admission screen 4). Pt does not meet the criteria of being a Medicare recipient that has a high or rising readmission rate. Patient will continue to be discussed in multi-disciplinary rounds and monitored daily. If any of the the above changes, SW/CM will complete appropriate assessments and interventions. SW met with pt at bedside this afternoon for assessment. No SDOH needs identified at this time. Pt is following up[ with OP PT per team recs. Millie Fay, ABDELRAHMAN, MLSP, HIDE MEASURING MACHINE OPERATOR PRN Social WorkerAuburn Community Hospital SystemDiabetes tracking panelOrdered By: Charlette Singh on [id number] glucose Estimated from glycated hemoglobin (Bld) [Mass/Vol]186 mg/yIAhcrhBkggpmIuU3p (Bld) [Mass fraction]8.1 %High4.0 - 5.6 %MetroHealthInterpretation and review of laboratory resultsAbnormal MetroHealthMetroHealthGLUCOSE, FINGERSTICK-IN OFFICEon 96-87-7603Juxwets [Mass/Vol]247 mg/fJOywn09-283Nhx [facility] SystemComment on above:Performed By: #### LACT, CR ICA #### [facility] [address] [place] [address], [phone] [Mass/Vol]256 mg/cTEraj05-999Nzr [facility] SystemComment on above:Performed By: #### [id number] #### NURSING GLUCOSE PROGRAM [address] [place] [address], [address]Dpxhdrn [Mass/Vol]247 mg/mFJlnf76 - 116 mg/dLMetroHealth Interpretation and review of laboratory resultsAbnormalMetroHealthMetroHealth Glucose [Mass/Vol]256 mg/sCOfmv66 - 116 mg/dLMetroHealthInterpretation and review of laboratory resultsAbnormalMetroHealthMetroHealthGlucose [Mass/Vol]128 mg/bFRyjd26-541Tte [facility] SystemComment on above:Performed By: #### LACT, CR ICA #### [facility] [address] [place] [address], [phone] [Mass/Vol]128 mg/gVJkuo09 - 116 mg/dL MetroHealthInterpretation and review of laboratory resultsAbnormalMetroHealth MetroHealthHEMOGLOBIN A1Con 94-01-9132Zagtdzt [Mass/Vol]186 mg/dLNormMercy Health Perrysburg Hospitale [facility] HospitalHealth SystemComment on above:Performed By: #### HB A1C #### [facility] PATHOLOGY LABORATORY [address], [place], [address]LyD2j (Bld) [Mass fraction]8.1 %High4.0-5.6The [facility] HospitalHealth SystemComment on above:Performed By: #### HB A1C #### [facility] PATHOLOGY LABORATORY [address], [place], [address]RKHNCVPOXqg 56-41-6174Epmebmtjo [Mass/Vol]1.9 mg/dL 1.9 - 2.7 mg/dLMetroHealthComment on above:Note updated reference ranges. Magnesium [Mass/Vol]1.9 mg/dLNormal1.9-2.7The [facility] HealthroHealth SystemComment on above:Result Comment: Note updated reference ranges.Performed By: #### JUAN LUJAN, NEDRA #### S PATHOLOGY LABORATORY [address] [place] [address], [phone] Panel Informationon 77-69-8031Utyizavsoaemme and review of laboratory resultsNormalMetroHealthMetroHealthPHOSPHORUSon 01-05-2024 Phosphate [Mass/Vol]4.3 mg/dL2.5 - 5.0 mg/dLMetroHealthComment on above:Note updated reference ranges.Phosphate [Mass/Vol]4.3 mg/dLNormal2.5-5.0The [facility] SystemComment on above:Result Comment: Note updated reference ranges.Performed By: #### JUAN LUJAN, NEDRA #### [facility] PATHOLOGY LABORATORY [address] [place], [address]Ajqlphct Noteson [id number] Authentication Interface Message TextENDOCRINOLOGY INPATIENT GLYCEMIC MANAGEMENT CONSULT NOTE Michelle Nash, 83 year old female, Room: [place] [address] Date Admitted: 01/03/2024, LOS: 2 days Reason for Consult: T2DM, hypoglycemia Attending Provider: Jamal Ansari MD HISTORY OF PRESENT ILLNESS Michelle Nash is a 83 year old female patient with past medical history of type 2 diabetes, hypertension, hyperlipidemia, GERD admitted with subdural hemorrhage status post fall. Patient was transferred from outside facility. Per previous notes, patient's blood sugars were 56. Recent change in insulin dosing made by her primary Automatic Fancy Machine Operator Endocrinology glycemic management team consulted for further recommendations regarding insulin regimen Last A1c: 8.1 Last c-peptide: 2.63 with glucose 170 Weight: 60.9 kg eGFR: 74 Subjective: Patient reports feeling better overall. Denies any pain or discomfort. No nausea or vomiting. Reports good oral intake.. PAST MEDICAL AND SURGICAL HISTORY: Type 2 diabetes Hypertension Hyperlipidemia GERD. CURRENT MEDICATIONS: Current Facility-Administered Medications Medication Dose Route Frequency Last Rate Last Admin insulin lispro (HumaLOG) 100 UNIT/ML injection 1-5 Units Subcutaneous 3x Daily AC 1 Units at 01/05/24 1212 insulin glargine (LANTUS SOLOSTAR/BASAGLAR KWIKPEN) 100 UNIT/ML PEN injection 10 Units Subcutaneous At Bedtime 10 Units at 01/04/24 2100 tramadol (ULTRAM) tablet 50 mg Oral Q6H PRN 50 mg at 01/04/24 1129 acetaminophen (TYLENOL) tablet 650 mg Oral q6h 650 mg at 01/04/24 1736 propranolol tablet 30 mg 30 mg Oral 2x Daily 30 mg at 01/05/24 0919 senna (SENOKOT) tablet 8.6 mg Oral At Bedtime PRN docusate sodium (COLACE) capsule 100 mg Oral 2x Daily PRN amitriptyline (ELAVIL) tablet 10 mg Oral At Bedtime 10 mg at 01/04/24 2100 atorvastatin (LIPITOR) tablet 10 mg Oral At Bedtime 10 mg at 01/04/24 2100 ondansetron (ZOFRAN) 4 MG/2ML injection 4 mg Intravenous Push Q6H PRN 4 mg at 01/04/24 07 miconazole (MICONAZORB AF) 2 % powder Topical 2x Daily Given at 01/05/24 0900 levETIRAcetam (KEPPRA) tablet 750 mg 750 mg Oral 2x Daily 750 mg at 01/05/24 0919 albuterol (PROVENTIL HFA) 108 (90 Base) MCG/ACT HFA inhaler 2 Puff Inhalation Q4H PRN petrolatum-zinc oxide (SENSI-CARE) 49-15 % ointment Topical BID Given at 01/05/24 0900 dextrose 10 % iv infusion 125 mL Intravenous PRN Or glucagon (GLUCAGEN) 1 MG injection 1 mg Subcutaneous PRN Or dextrose (GLUTOSE) 40 % oral gel 15 g of glucose Buccal PRN Or dextrose (GLUTOSE) 40 % oral gel 30 g of glucose Buccal PRN OBJECTIVE Vitals: 01/05/24 1400 BP: 132/62 Pulse: 66 Resp: 18 Temp: 97.5 ???F (36.4 ???C) SpO2: 98% last BMI is undetermined because no height found and no weight found PHYSICAL EXAM: General appearance: no distress, cooperative Mouth: Moist mucous membranes. Lungs: Good breath sounds; no wheezes, rales or rhonchi Heart: Regular rate and rhythm. No murmurs, rubs or gallops Abdomen: Abdomen soft, non-tender. No apparent masses. Extremities: No edema. No tremor. Neuro: Alert, oriented x3. LAB RESULTS: Fingerstick Glucose (last 72 hours) (Last 10 results in the past 72 hours) Glucose 01/05/24 1211 247 01/05/24 1136 256 01/05/24 0740 128 01/04/24 2043 166 01/04/24 1640 122 01/04/24 1134 172 01/04/24 0542 148 01/04/24 0006 117 01/03/24 1756 187 01/03/24 1204 161 Comment: Notified VÍCTOR DC MD Hemoglobin A1c Date Value Ref Range Status 01/05/2024 8.1 (H) 4.0 - 5.6 % Final Basic Metabolic Panel Na K Cl CO2 Gap Glu BUN Cr Ca 01/05/24 0134 136 Comment: Note updated reference ranges. 4.5 Comment: Note updated reference ranges. Note updated reference ranges. 103 Comment: Note updated reference ranges. 27 Comment: Note updated reference ranges. 11 125 22 Comment: Note updated reference ranges. 0.62 Comment: Note updated reference ranges. 9.1 Comment: Note updated reference ranges. 01/04/24 0007 138 Comment: Note updated reference ranges. 3.9 Comment: Note updated reference ranges. Note updated reference ranges. 106 Comment: Note updated reference ranges. 22 Comment: Note updated reference ranges. 14 170 22 Comment: Note updated reference ranges. 0.79 Comment: Note updated reference ranges. 8.9 Comment: Note updated reference ranges. 01/03/24 0616 141 Comment: Note updated reference ranges. 3.8 Comment: Note updated reference ranges. Note updated reference ranges. 104 Comment: Note updated reference ranges. 25 Comment: Note updated reference ranges. 16 116 18 Comment: Note updated reference ranges. 0.51 Comment: Note updated reference ranges. 9.5 Comment: Note updated reference ranges. CBC (last 3 years, up to 5 values) WBC RBC Hgb Hct MCV RDW Plt 01/05/24 0134 6.0 3.67 11.8 35.9 98 14.0 257 01/04/24 0007 7.2 3.71 1 (more content not included)...NormalThe TG Publishing SystemTranscription Authentication Interface Message Text GENERAL INFORMATION TRAUMA FLOOR - STAFF NOTE Patient seen and examined on 01/05/2024 Patient Name: Michelle Nash Admission Date: 01/03/2024 INTERVAL HISTORY/EVENTS Background: 83 F hx Dm2m no AC/AP who presents as transfer from [facility] s/p fall from standing. Was at [facility] when lost balance 2/2 automatic doors. Possibly some component of hypoglycemia as she is on a new insulin regimen and Bgl at OSH was 56. GCS 15, no focal deficits. Transferred due to repeat imaging with 3mm SDH and trace SAH, requiring NSGY eval. Hospital Course: 01/03/2024: Admitted to SICU for q1h neuro checks, repeat CTH stable, transferred to [facility] 01/04/2024: Endocrinology consult obtained to assist with adjusting outpatient insulin regimen. 24-hour Events: Subjective Statement: No acute events overnight, AFVSS, SBP remaining within goal (< 170). Patient feeling well this AM although slightly woozy when she initially stands up in the morning. This improves throughout the day. Blood glucoses ranging 122-172 over last 24. VITALS AND INPUT/OUTPUT Vital Signs: Vital sign ranges over the past 24 hours (retrieved 01/05/2024 at 6:21 AM): Tmax (24 hours): 98.1 ???F (36.7 ???C) Pulse Av.3 Min: 56 Max: 80 Systolic (24hrs), Av , Min:124 , Max:157 Diastolic (24hrs), Av, Min:39, Max:77 MAP (mmHg) Av.1 mmHg Min: 61 mmHg Max: 94 mmHg Resp Av Min: 18 Max: 18 SpO2 Av.4 % Min: 96 % Max: 100 % 24 Hour Input/Output In: - (0 mL/kg) Out: 1000 (16.4 mL/kg) [Urine:1000 (0.7 mL/kg/hr)] Net: -1000 Weight: 60.9 kg PHYSICAL EXAM Constitutional: No acute distress. Cardiovascular: Regular rate and rhythm Pulmonary/Chest: CTAB Abdominal: Soft. Non-distended. Non-tender. Musculoskeletal: No edema. Neurological: GCS 15 LABORATORY RESULTS (LAST 24 HOURS) CBC/PT/INR WBC RBC Hgb Hct MCV RDW Plt PT aPTT INR 01/05/24 0134 6.0 3.67 11.8 35.9 98 14.0 257 Basic Metabolic Panel Na K Cl CO2 Gap Glu BUN Cr Ca Mg PO4 01/05/24133 4.3 Comment: Note updated reference ranges. 01/05/24133 1.9 Comment: Note updated reference ranges. 01/05/24133 136 Comment: Note updated reference ranges. 4.5 Comment: Note updated reference ranges. Note updated reference ranges. 103 Comment: Note updated reference ranges. 27 Comment: Note updated reference ranges. 11 125 22 Comment: Note updated reference ranges. 0.62 Comment: Note updated reference ranges. 9.1 Comment: Note updated reference ranges. Arterial Blood Gases None IMAGING RESULTS (PERSONALLY REVIEWED) No new imaging obtained. ASSESSMENT AND PLAN Michelle Nash is a 83 year old female with DM, HTN, HLD, ILD, GERD [facility] where she hit her head, found to have SDH and SAH as above, possibly in setting of hypoglycemia. Injuries: Right parafalcine subdural hematoma Subarachnoid hemorrhage (contre-coup injury) Incidental Findings: None Plan: Neurologic - Analgesia: Tylenol 650 q6h scheduled, tramadol 50mg q6h PRN NSG consulted for SDH, SAH, signed off: - Repeat CTH stable (01/03) - Keppra 750 mg BID x 7 days for seizure prophylaxis (ends 01/10) - Q4 neuro checks Continue home amitriptyline 10 mg at bedtime Respiratory - Respiratory Signal Operator Linguist Protocol Incentive Spirometer Continue home albuterol PRN Cardiovascular - Monitor Vitals Continue home propanolol 30 mg BID Holding home losartan 50mg daily while inpatient Continue home atorvastatin 10 mg at bedtime MAP goal < 120, SBP < 170 for SDH GI - Diet: Regular; DM [place] Bowel Regimen: Senna, Colace, Dulcolax Continue zofran for nausea PRN Continue home omeprazole Renal/ - Measure I AND O Daily BMP, Mg, Phos. Replace as needed Endo - Diabetes mellitus type 2 - Humulin SSI, BGL control between 140-180 - Hold home lantus/lispro Endocrine consult placed for insulin regimen adjustment; recent changes to home insulin regimen possibly contributory to recent fall - Continue holding home empagliflozin - Insulin glargine 10 units at bedtime - If consistently waking up with blood sugars < 90, decrease Lantus dose to 8 units - If waking up with hyperglycemia > 200, increase Lantus to 12 units - If patient on PO diet: -Accuchecks TID AC + at bedtime -Insulin lispro correction scale TID AC Add to scheduled prandial insulin when possible. <150: Add 0 units of lispro 150-200: Add 0 units 201-250: Add 1 units 251-300: Add 2 units 301-350: Add 3 units 351-400: Add 4 units >401: Add (more content not included)...NormalThe [facility] HospitalTRACON Pharmaceuticals [facility] HospitalBASIC METABOLIC PANELon 20-75-6630Xuost gap [Moles/Vol]14 mmol/YIybloh66-86Cba [facility] HospitalTRACON Pharmaceuticals SystemComment on above:Performed By: #### [id number] #### NURSING GLUCOSE PROGRAM [address], [place], [address]Bzrcvlg [Mass/Vol]8.9 mg/dLNormal8.6-10.3The [facility] HealthroHealth SystemComment on above:Result Comment: Note updated reference ranges.Performed By: #### [id number] #### NURSING GLUCOSE PROGRAM [address], [place], [address]Vmosftwq [Moles/Vol]106 mmol/BTeawsv69-029Wad [facility] HospitalTRACON Pharmaceuticals SystemComment on above:Result Comment: Note updated reference ranges.Performed By: #### [id number] #### NURSING GLUCOSE PROGRAM [address], [place], [address]SX2 [Moles/Vol]22 mmol/BVqbppn77-62Qfg [facility] System Comment on above:Result Comment: Note updated reference ranges.Performed By: #### [id number] #### NURSING GLUCOSE PROGRAM [address], [place], [address]Wzyeobzqqo [Mass/Vol]0.79 mg/dLNormal0.60-1.20The [facility] HospitalAvita Health System SystemComment on above:Result Comment: Note updated reference ranges.Performed By: #### [id number] #### NURSING GLUCOSE PROGRAM [address], [place], [address]IMYAFGZXR GFR (CKD-EPI)74 mL/min/1.73sqmNormal>=60The [facility] SystemComment on above:Result Comment: 2020 CKD EPI Equation using Creatinine without Race Comment: Estimated glomerular filtration rate (eGFR) is calculated without a race coefficient. Values should be interpreted in the context of the patient's full clinical presentation. Reference: 1. Darrell C, Betzy M, Patricia VILLALTA, et al.. A Unifying Approach for GFR Estimation: Recommendations of the NKF-ASN Task Force on Reassessing the Inclusion of Race in Diagnosing Kidney Disease. AmericanJournal of Kidney Diseases 202;79(2):268-88.e1. 2. N Engl J Med 1 Vol. 385 Issue 19 Pages 6608-8941Performed By: #### [id number] #### NURSING GLUCOSE PROGRAM [address], [place], [address]Lbxneme [Mass/Vol]170 mg/fWFxan31-320Kab [facility] Comment on above:Performed By: #### [id number] #### NURSING GLUCOSE PROGRAM [address], [place], [address]Gxjorwuey [Moles/Vol]3.9 mmol/LNormal3.5-5.0The [facility] SystemComment on above:Result Comment: Note updated reference ranges. Note updated reference ranges.Performed By: #### [id number] #### NURSING GLUCOSE PROGRAM [address], [place], [address]Kqswab [Moles/Vol]138 mmol/SScumtw744-321Zof [facility] SystemComment on above:Result Comment: Note updated reference ranges.Performed By: #### [id number] #### NURSING GLUCOSE PROGRAM [address], [place], [address]Jjge nitrogen [Mass/Vol]22 mg/dLNormal7-25The [facility] SystemComment on above:Result Comment: Note updated reference ranges.Performed By: #### [id number] #### NURSING GLUCOSE PROGRAM [address], [place], [address]Mljtf metabolic 2000 panelon 93-36-3009Baope gap [Moles/Vol] 14 mmol/L10 - 20MetroHealthCalcium [Mass/Vol]8.9 mg/dL8.6 - 10.3 mg/dL MetroHealthComment on above:Note updated reference ranges.Chloride [Moles/Vol] 106 mmol/L98 - 107 mmol/LMetroHealthComment on above:Note updated reference ranges.CO2 [Moles/Vol]22 mmol/L21 - 31 mmol/LMetroHealthComment on above:Note updated reference ranges.Creatinine [Mass/Vol]0.79 mg/dL0.60 - 1.20 mg/dL MetroHealthComment on above:Note updated reference ranges.GFR/1.73 sq M.predicted CKD-EPI (S/P/Bld) [Vol rate/Area]74- PINFMetroHealthComment on above:2020 CKD EPI Equation using Creatinine without Race Comment: Estimated glomerular filtration rate (eGFR) is calculated without a race coefficient. Values should be interpreted in the context of the patient's full clinical presentation. Reference: 1. Darrell C, Betzy M, Patricia VILLALTA, et al.. A Unifying Approach for GFR Estimation: Recommendations of the NKF-ASN Task Force on Reassessing the Inclusion of Race in Diagnosing Kidney Disease. AmericanJournal of Kidney Diseases 202;79(2):268-88.e1. 2. N Engl J Med 1 Vol. 385 Issue 19 Pages 1123-1461 Glucose [Mass/Vol]170 mg/kFNmve87 - 109 mg/dLMetroHealthInterpretation and review of laboratory resultsAbnormalMetroHealthPotassium [Moles/Vol]3.9 mmol/L 3.5 - 5.0 mmol/LMetroHealthComment on above:Note updated reference ranges. Note updated reference ranges. Sodium [Moles/Vol]138 mmol/L136 - 145 mmol/LMetroHealthComment on above:Note updated reference ranges.Urea nitrogen [Mass/Vol]22 mg/dL7 - 25 mg/dLMetroHealth Comment on above:Note updated reference ranges.C-PEPTIDE, SERUMon 4C peptide [Mass/Vol]2.63 ng/mL0.81 - 3.85 ng/mLMetroHealthInterpretation and review of laboratory resultsNormalMetroHealthMetroHealthC peptide [Mass/Vol]0.76 ng/mLLow0.81 - 3.85 ng/mLMetroHealthInterpretation and review of laboratory resultsAbnormalMetroHealthMetroHealthCPEP2.63 ng/mLNormal0.81-3.85The [facility] SystemComment on above:Performed By: #### [id number] #### NURSING GLUCOSE PROGRAM [address] [place] [address], [address]CRYSEYM, IONIZEDon 29-10-9058Ptgqmkm.ionized (Bld) [Moles/Vol]1.22 mmol/L1.15 - 1.33 mmol/LMetroHealthComment on above:This test was developed, and its performance characteristics determined by the Department of Pathology of The [facility]. It has not been cleared or approved by the FDA. This test is used forclinical purposes only.Interpretation and review of laboratory resultsNormalMetroHealthMetroHealthCBC panel Auto (Bld)on 07-13-0948Frjwpkbfhhd distribution width (RBC) [Ratio]14.0 %11.5 - 14.5 % MetroHealthHematocrit (Bld) [Volume fraction]36.1 %36.0 - 46.0 %[facility] Hemoglobin (Bld) [Mass/Vol]11.9 g/dLLow12.0 - 15.0 g/dLMetroHealthInterpretation and review of laboratory resultsAbnormalMetroHealthMCH (RBC) [Entitic mass]32.0 pg26.0 - 34.0 pgMetroHealthMCHC (RBC) [Mass/Vol]32.9 g/dL32.0 - 35.9 g/dL MetroHealthMCV (RBC) [Entitic vol]97 fL80 - 100 fLMetroHealthPlatelet mean volume (Bld) [Entitic vol]9.5 fL7.5 - 11.2 fLMetroHealthPlatelets (Bld) [#/Vol] 262 10*3/uL150 - 400 K/uLMetroHealthRBC (Bld) [#/Vol]3.71 10*6/uLLowMetroHealth WBC (Bld) [#/Vol]7.2 10*3/uL4.5 - 11.5 K/uLMetroHealthMetroHealthCOMPLETE BLOOD COUNTon 93-31-9521Qrhdyfkmgjb distribution width (RBC) [Ratio]14.0 %Normal 11.5-14.5The [facility] SystemComment on above:Performed By: #### CBC ####[facility] PATHOLOGY [id number] [place] [address], [address]Xrdwlseowy (Bld) [Volume fraction]36.1 %Scaswe77.0-46.0The [facility] HospitalHealth SystemComment on above:Performed By: #### CBC ####[facility] PATHOLOGY A[address]KWX[address] [place] [address], [address]Gxjflvvmon (Bld) [Mass/Vol]11.9 g/dLLow12.0-15.0 The [facility] SystemComment on above:Performed By: #### CBC ####[facility] PATHOLOGY OFKRFBON[address] [place] [address], [phone] (RBC) [Entitic mass]32.0 ezCxsdhd50.0-34.0The [facility] SystemComment on above:Performed By: #### CBC ####[facility] PATHOLOGY [id number] [place] [address], [id number] (RBC) [Mass/Vol]32.9 g/bIJvahxm89.0-35.9The [facility] Comment on above:Performed By: #### CBC ####[facility] PATHOLOGY [id number] [place] [address], [phone] (RBC) [Entitic vol]97 fLNormal 80-100The [facility] SystemComment on above:Performed By: #### CBC ####[facility] PATHOLOGY [id number] [place] [address], [address]Pccplzov mean volume (Bld) [Entitic vol]9.5 fLNormal7.5-11.2The [facility] SystemComment on above:Performed By: #### CBC ####[facility] PATHOLOGY [id number] [place] [address], [address]Hwyikkrec (Bld) [#/Vol]262 10*3/lPBlirek987-672Esd [facility] HealthroHealth SystemComment on above:Performed By: #### CBC ####[facility] [id number] [place], [address]PYQ (Bld) [#/Vol]3.71 10*6/uLLow4.00-5.20The [facility] HospitalHealth SystemComment on above:Performed By: #### CBC ####[facility] [id number] [place], [address]UOB (Bld) [#/Vol]7.2 10*3/uLNormal4.5-11.5The [facility] SystemComment on above: Performed By: #### CBC ####S PATHOLOGY [id number] [place], [address]Tlcc Plan Noteon 27-01-6752Esivvrilkkzbe Authentication Interface Message TextProblem: Routine Care: Goal: Patient care will be managed and maintained throughout hospital stay per unit specific routine care procedure Outcome: Progressing Problem: Impaired Mobility: Goal: Ability to maintain or regain baseline function will be acheived Outcome: Progressing Goal: Will be free of DVT Outcome: Progressing Problem: VTE Prophylaxis: Goal: Will be free of DVT Outcome: Progressing Problem: Fluid and Electrolyte Imbalance: Goal: Adequate fluid and electrolyte balance will be achieved and maintained Outcome: Progressing Problem: Altered Neurological Status: Goal: Optimal neurological status will be maintained or regained Outcome: Progressing Goal: Altered Level of Consciousness will improve Outcome: Progressing Problem: Acute Pain: Goal: Ability to identify pain intensity on a pain scale and rate it consistently will be achieved and maintained Outcome: Progressing Goal: Acceptable level of pain which allows the patient to achieve functional outcome goals Outcome: Progressing Problem: Safety: Goal: Patient will remain free of falls during hospital stay Outcome: Progressing Goal: Free from injury during hospitalization Outcome: Progressing Problem: Discharge Planning: Goal: Discharge needs of the adult patient will be met Outcome: Progressing Problem: Glucose Imbalance: Goal: Ability to maintain appropriate glucose levels will be achieved and maintained Outcome: ProgressingNormalThe [facility] SystemConsultson 01-04-2024 Belt Maker Authentication Interface Message TextENDOCRINOLOGY INPATIENT GLYCEMIC MANAGEMENT CONSULT NOTE Michelle Nash, 83 year old female, [facility] Date Admitted: 01/03/2024, LOS: 1 day Reason for Consult: T2DM, hypoglycemia Attending Provider: Jamal Ansari MD HISTORY OF PRESENT ILLNESS Michelle Nash is a 83 year old female patient with past medical history of type 2 diabetes, hypertension, hyperlipidemia, GERD admitted with subdural hemorrhage status post fall. Patient was transferred from outside facility. Per previous notes, patient's blood sugars were 56. Recent change in insulin dosing made by her primary Automatic Fancy Machine Operator Endocrinology glycemic management team consulted for further recommendations regarding insulin regimen Diabetes diagnosed: Greater than 10 years ago Last A1c: Unavailable, pending Last c-peptide: Unavailable, pending Weight: 60.9 kg eGFR: 74 Management of diabetes mellitus at home: Patient is on Lantus 20 units in the morning, Humalog 4 units with breakfast, 6 units with dinner. Patient uses only sliding scale at lunch. Also is on Jardiance, dose unknown. Patient states she takes her insulin and Jardiance very consistently. Does not miss any doses. Reports she has continuous glucose monitor. Reports she has frequent hypoglycemia every other day especially after meals in the evening. Denies blurred vision. Denies tingling or numbness of extremities. Reports occasional polyuria. Reports recent urinary tract infection. Patient states she has history of procedure related to her pancreas >20 years ago. She is unsure about the details. Patient states she was stable on medications until this year, she was started on insulin 6 months ago due to significant hyperglycemia. Has 3 meals per day with occasional snacks. Has not been exercising lately. Patient was on metformin years ago and was stopped this year. Patient is unsure about the reason. Diabetes managed outpatient by: per pt Patient reports feeling better overall. Denies f/c, CP, SOB, cough, n/v, abd pain, new weakness. States appetite is improving but not back to normal. 10 point Review of Systems negative except as noted above. HISTORY PAST MEDICAL AND SURGICAL HISTORY: Type 2 diabetes Hypertension Hyperlipidemia GERD. FAMILY HISTORY: Denies family history of insulin dependent diabetes mellitus. Reports family history of CAD. CURRENT MEDICATIONS: Current Facility-Administered Medications Medication Dose Route Frequency Last Rate Last Admin insulin lispro (HumaLOG) 100 UNIT/ML injection 1-5 Units Subcutaneous 3x Daily AC insulin glargine (LANTUS SOLOSTAR/BASAGLAR KWIKPEN) 100 UNIT/ML PEN injection 10 Units Subcutaneous At Bedtime tramadol (ULTRAM) tablet 50 mg Oral Q6H PRN 50 mg at 01/04/24 1129 acetaminophen (TYLENOL) tablet 650 mg Oral q6h propranolol tablet 30 mg 30 mg Oral 2x Daily 30 mg at 01/04/24 0939 senna (SENOKOT) tablet 8.6 mg Oral At Bedtime PRN docusate sodium (COLACE) capsule 100 mg Oral 2x Daily PRN amitriptyline (ELAVIL) tablet 10 mg Oral At Bedtime atorvastatin (LIPITOR) tablet 10 mg Oral At Bedtime 10 mg at 01/03/24 2121 ondansetron (ZOFRAN) 4 MG/2ML injection 4 mg Intravenous Push Q6H PRN 4 mg at 01/04/24 0702 miconazole (MICONAZORB AF) 2 % powder Topical 2x Daily Given at 01/04/24 0942 levETIRAcetam (KEPPRA) tablet 750 mg 750 mg Oral 2x Daily 750 mg at 01/04/24 0938 albuterol (PROVENTIL HFA) 108 (90 Base) MCG/ACT HFA inhaler 2 Puff Inhalation Q4H PRN petrolatum-zinc oxide (SENSI-CARE) 49-15 % ointment Topical BID Given at 01/04/24 0942 dextrose 10 % iv infusion 125 mL Intravenous PRN Or glucagon (GLUCAGEN) 1 MG injection 1 mg Subcutaneous PRN Or dextrose (GLUTOSE) 40 % oral gel 15 g of glucose Buccal PRN Or dextrose (GLUTOSE) 40 % oral gel 30 g of glucose Buccal PRN ALLERGIES: Denies any allergies. SOCIAL HISTORY: Social History Socioeconomic History Marital status: Denies smoking or alcohol use. OBJECTIVE Vitals: 01/04/24 1134 BP: 137/58 Pulse: 78 Resp: 18 Temp: 97.6 ???F (36.4 ???C) SpO2: 98% last BMI is undetermined because no height found and no weight found PHYSICAL EXAM: General appearance: no distress, cooperative Skin: Normal temperature and thickness. HEENT: Extraocular movements intact. Mouth: Moist mucous membranes. Lungs: Good breath sounds; no wheezes, rales or rhonchi Heart: Regular rate and rhythm. No murmurs, rubs or gallops Abdomen: Abdomen soft, non-tender. No apparent masses. Extremities: No edema. No tremor. No foot ulcers. Neuro: Alert, oriented x3. No motor deficits in upper or lower extremities. LAB RESULTS: Fingerstick Glucose (last 72 hours) Glucose 01/04/24 1134 172 01/04/24 0542 148 01/04/24 0006 117 01/03/24 1756 187 01/03/24 1204 161 Comment: Notified VÍCTOR DC MD 01/03/24 0838 82 01/03/24 0504 103 No res (more content not included)...NormalThe [facility]Health SystemGLUCOSE, FINGERSTICK-IN OFFICEon 32-71-3928Klgahrr [Mass/Vol]166 mg/lDVghc17-227Ciq [facility] SystemComment on above:Performed By: #### [id number] ####NURSING GLUCOSE [id number] [place], [place], [address]Qibdzrf [Mass/Vol]166 mg/dLHigh 80 - 116 mg/dLMetroHealthInterpretation and review of laboratory resultsAbnormal MetroHealthMetroHealthGlucose [Mass/Vol]122 mg/iRSuei26-823Tmy [facility] System SystemComment on above:Performed By: #### [id number] #### NURSING GLUCOSE PROGRAM [address], [place], [address]Bspupjp [Mass/Vol]122 mg/aREdrg09 - 116 mg/dLMetroHealth Interpretation and review of laboratory resultsAbnormalMetroHealthMetroHealth Glucose [Mass/Vol]172 mg/fUHqft02-380Lhj [facility] System SystemComment on above: Performed By: #### [id number] ####NURSING GLUCOSE [id number] [place], [place], [address]Ofrrspp [Mass/Vol]172 mg/cTInyj97 - 116 mg/dL MetroHealthInterpretation and review of laboratory resultsAbnormalMetroHealth MetroHealthGlucose [Mass/Vol]148 mg/fHUwlb83-240Pqz [facility] SystemComment on above:Performed By: #### LACT, CR ICA #### [facility] [address] [place], [address]Hwftmab [Mass/Vol]148 mg/lRVuoa35 - 116 mg/dL MetroHealthInterpretation and review of laboratory resultsAbnormalMetroHealth MetroHealthGlucose [Mass/Vol]117 mg/vSZici91-677Vyg [facility] SystemComment on above:Performed By: #### LACT, CR ICA #### [facility]OR[facility] [address] [place], [address]Xyxymwc [Mass/Vol]117 mg/wRJrpa99 - 116 mg/dL MetroHealthInterpretation and review of laboratory resultsAbnormalMetroAvita Health System MetroHealthMAGNESIUMon 45-10-6380Tblwrkpad [Mass/Vol]1.9 mg/dLNormal1.9-2.7The [facility] SystemComment on above:Result Comment: Note updated reference ranges.Performed By: #### [id number] #### NURSING GLUCOSE PROGRAM [address] [place] [address], [address]Giyuagifq [Mass/Vol]1.9 mg/dL1.9 - 2.7 mg/dLMetroAvita Health System Comment on above:Note updated reference ranges.No Panel Informationon 01-04-2024 Interpretation and review of laboratory resultsNormalMetroHealthMetroHealth PHOSPHORUSon 18-98-9415Pxvgqkmza [Mass/Vol]3.7 mg/dLNormal2.5-5.0The [facility] SystemComment on above:Result Comment: Note updated reference ranges.Performed By: #### [id number] #### NURSING GLUCOSE PROGRAM [address] [place], [place], [address]Twotkuost [Mass/Vol]3.7 mg/dL2.5 - 5.0 mg/dLMetroHealth Comment on above:Note updated reference ranges.Progress Noteson 01-04-2024 Belt Maker Authentication Interface Message Text GENERAL INFORMATION TRAUMA FLOOR - STAFF NOTE Patient seen and examined on 01/04/2024 Patient Name: Michelle Nash Admission Date: 01/03/2024 INTERVAL HISTORY/EVENTS Background: 83 F hx Dm2m no AC/AP who presents as transfer from [facility] s/p fall from standing. Was at [facility] when lost balance 2/2 automatic doors. Possibly some component of hypoglycemia as she is on a new insulin regimen and Bgl at OSH was 56. GCS 15, no focal deficits. Transferred due to repeat imaging with 3mm SDH and trace SAH, requiring NSGY eval. Hospital Course: 01/03/2024: Admitted to SICU for q1h neuro checks, repeat CTH stable, transferred to [facility] 24-hour Events: Overnight Events: Hypertensive overnight to 180/83 with headache and nausea, hydralazine ordered with SBP response down to 158. Subjective Statement: This is my first time seeing the patient. Reports her headache has improved. Otherwise tolerating diet, passing gas. Mobilized with PT/OT yesterday and was cleared for discharge home with neuro PT/OT. VITALS AND INPUT/OUTPUT Vital Signs: Vital sign ranges over the past 24 hours (retrieved 01/04/2024 at 7:28 AM): Tmax (24 hours): 98.6 ???F (37 ???C) Pulse Av.2 Min: 61 Max: 78 Systolic (24hrs), Av , Min:117 , Max:180 Diastolic (24hrs), Av, Min:48, Max:85 MAP (mmHg) Av.3 mmHg Min: 68 mmHg Max: 106 mmHg Resp Av.6 Min: 18 Max: 26 SpO2 Av.2 % Min: 96 % Max: 100 % 24 Hour Input/Output In: 1157.5 (19 mL/kg) [P.O.:720; I.V.:437.5 (0.3 mL/kg/hr)] Out: 1020 (16.7 mL/kg) [Urine:1020 (0.7 mL/kg/hr)] Net: 137.5 Weight: 60.9 kg PHYSICAL EXAM Constitutional: No acute distress. Cardiovascular: Regular rate and rhythm Pulmonary/Chest: CTAB Abdominal: Soft. Non-distended. Non-tender. Musculoskeletal: No edema. Neurological: GCS 15 LABORATORY RESULTS (LAST 24 HOURS) CBC/PT/INR WBC RBC Hgb Hct MCV RDW Plt PT aPTT INR 01/04/246 7.2 3.71 11.9 36.1 97 14.0 262 Basic Metabolic Panel Na K Cl CO2 Gap Glu BUN Cr Ca Mg PO4 01/04/246 3.7 Comment: Note updated reference ranges. 01/04/246 1.9 Comment: Note updated reference ranges. 01/04/246 138 Comment: Note updated reference ranges. 3.9 Comment: Note updated reference ranges. Note updated reference ranges. 106 Comment: Note updated reference ranges. 22 Comment: Note updated reference ranges. 14 170 22 Comment: Note updated reference ranges. 0.79 Comment: Note updated reference ranges. 8.9 Comment: Note updated reference ranges. Arterial Blood Gases None IMAGING RESULTS (PERSONALLY REVIEWED) No new imaging obtained. ASSESSMENT AND PLAN Michelle Nash is a 83 year old female with DM, HTN, HLD, ILD, GERD who presents as transfer from [facility] s/p fall from standing where she hit her head, found to have SDH and SAH as above, possibly in setting of hypoglycemia. Injuries: Right parafalcine subdural hematoma Subarachnoid hemorrhage (contre-coup injury) Incidental Findings: None Plan: Neurologic - Analgesia: Tylenol 650 q6h scheduled, tramadol 50mg q6h PRN NSG consulted for SDH, SAH, signed off: - Repeat CTH stable (01/03) - Keppra 750 mg BID x 7 days for seizure prophylaxis (ends 01/13) - Q4 neuro checks Restart home amitriptyline 10 mg at bedtime Respiratory - Respiratory Signal Operator Linguist Protocol Incentive Spirometer Continue home albuterol PRN Cardiovascular - Monitor Vitals Restart home propanolol 30 mg BID Holding home losartan 50mg daily while inpatient Continue home atorvastatin 10 mg at bedtime MAP goal < 120, SBP < 170 for SDH GI - Diet: Regular; DM [place] Bowel Regimen: Senna, Colace, Dulcolax Continue zofran for nausea PRN Continue home omeprazole Renal/ - Measure I AND O Daily BMP, Mg, Phos. Replace as needed Endo - Diabetes mellitus type 2 - Humulin SSI, BGL control between 140-180 - Hold home lantus/lispro Endocrine consult placed for insulin regimen adjustment; recent changes to home insulin regimen possibly contributory to recent fall Heme - No indication for transfusion at this time. Daily CBC ID - No indication for antibiotics at this time. MSK - Progressive mobility protocol PT/OT - Recommending outpatient neuro PT/OT Wound Consult for moisture dermatitis - Recs pending Prophylaxis: VTE - SCDs. Hold LMWH given SDH, activity ad jag Dispo: pending pain control, PT/OT possible home today vs. tomorrow Follow up: - Neurosurgery clinic in 2 weeks (Dr. Olmedo) [place] Bean, PGY-1 Trauma Surgery Pager: [phone] Te (more content not included)...NormalThe ALEXANDALEXATransAbsolicon Solar Concentrator Authentication Interface Message [id number] Chat to Dr Ramsey Esquivel; She has BP 180/83. She's c/o headache. No other symptoms. I gave her some tylenol . Would you like any other intervention? My plan is recheck in 30 min after tylenol kicks in. 0508 New order for hydralazine. 0544 SBP 168 0605 Hydralazine received from pharmacy. Recheck BP at 0645 0643 Post-hydralazine, SBP [address] Esquivel: SBP 158. Still c/o headache and some nausea. No other neuro symptoms. Can she get anything stronger than tylenol? I gave some zofran 0720 PAGER ID: [phone] MESSAGE: 6E 702-2 has post-hydralazine SBP 158. Still c/o headache and some nausea. No other neuro symptoms. Can she get anything stronger than tylenol? I gave zofran. Thanks [place] [phone] Bean responded and will look into the matter. Oncoming nurses aware. NormalThe [facility] SystemBASIC METABOLIC PANELon 93-16-5669Rcdac gap [Moles/Vol]16 mmol/KEgilsf47-25Ejg [facility] Hospital[facility] SystemComment on above:Performed By: #### LACT, CR ICA #### [facility] [address] [place] [address], [address]Xhwkavb [Mass/Vol]9.5 mg/dLNormal8.6-10.3The [facility] HospitalHealth SystemComment on above:Result Comment: Note updated reference ranges.Performed By: #### LACT, CR ICA #### [facility] [address] [place], [address]Dgumanwg [Moles/Vol]104 mmol/PFrjqmo29-574Hyv [facility] HospitalHealth SystemComment on above:Result Comment: Note updated reference ranges.Performed By: #### LACT, CR ICA #### [facility] [address] [place], [address]NL6 [Moles/Vol]25 mmol/LNrhzkx98-67Hfk [facility] SystemComment on above:Result Comment: Note updated reference ranges.Performed By: #### LACT, CR ICA #### [facility] [address] [place], [address]Ycfhwjxumk [Mass/Vol]0.51 mg/dLLow0.60-1.20The [facility] HospitalHealth SystemComment on above:Result Comment: Note updated reference ranges.Performed By: #### LACT, CR ICA #### [facility] [address] [place] [address], [address]ORLCTSKIC GFR (CKD-EPI)92 mL/min/1.73sqmNormal>=60The [facility] HospitalHealth SystemComment on above:Result Comment: 2020 CKD EPI Equation using Creatinine without Race Comment: Estimated glomerular filtration rate (eGFR) is calculated without a race coefficient. Values should be interpreted in the context of the patient's full clinical presentation. Reference: 1. Darrell C, Betzy M, Patricia DC, et al.. A Unifying Approach for GFR Estimation: Recommendations of the NKF-ASN Task Force on Reassessing the Inclusion of Race in Diagnosing Kidney Disease. AmericanJournal of Kidney Diseases 2021;79(2):268-88.e1. 2. N Engl J Med 1 Vol. 385 Issue 19 Pages 9683-6038Performed By: #### LACT, CR ICA #### [facility] [address] [place] [address], [address]Ovwkiuy [Mass/Vol]116 mg/wQEltu73-251Gsf [facility] SystemComment on above:Performed By: #### LACT, CR ICA #### [facility] [address] [place] [address], [address]Ewbchmxec [Moles/Vol]3.8 mmol/LNormal3.5-5.0The [facility] System SystemComment on above:Result Comment: Note updated reference ranges. Note updated reference ranges.Performed By: #### LACT, CR ICA #### [facility] [address] [place], [address]Sofezf [Moles/Vol]141 mmol/SPzehrl047-560Xvf [facility] HealthroHealth SystemComment on above:Result Comment: Note updated reference ranges.Performed By: #### LACT, CR ICA #### [facility] [address] [place], [address]Ezho nitrogen [Mass/Vol]18 mg/dLNormal7-25The [facility] HospitalHealth SystemComment on above:Result Comment: Note updated reference ranges.Performed By: #### LACT, CR ICA #### [facility] [address] [place] [address], [address]Fzgay metabolic 2000 panelOrdered By: Daisy Bryant on 75-82-5911Hglzq gap [Moles/Vol]16 mmol/L10 - 20MetroHealthCalcium [Mass/Vol]9.5 mg/dL8.6 - 10.3 mg/dLMetroHealthComment on above:Note updated reference ranges.Chloride [Moles/Vol]104 mmol/L98 - 107 mmol/LMetroHealthComment on above:Note updated reference ranges.CO2 [Moles/Vol]25 mmol/L21 - 31 mmol/L MetroHealthComment on above:Note updated reference ranges.Creatinine [Mass/Vol] 0.51 mg/dLLow0.60 - 1.20 mg/dLMetroHealthComment on above:Note updated reference ranges.GFR/1.73 sq M.predicted CKD-EPI (S/P/Bld) [Vol rate/Area]92- PINF MetroHealthComment on above:2020 CKD EPI Equation using Creatinine without Race Comment: Estimated glomerular filtration rate (eGFR) is calculated without a race coefficient. Values should be interpreted in the context of the patient's full clinical presentation. Reference: 1. Darrell C, Betzy M, Patricia DC, et al.. A Unifying Approach for GFR Estimation: Recommendations of the NKF-ASN Task Force on Reassessing the Inclusion of Race in Diagnosing Kidney Disease. AmericanJournal of Kidney Diseases 202;79(2):268-88.e1. 2. N Engl J Med 2021 Vol. 385 Issue 19 Pages 8358-1165 Glucose [Mass/Vol]116 mg/oBPceo23 - 109 mg/dLMetroHealthInterpretation and review of laboratory resultsAbnormalMetroHealthPotassium [Moles/Vol]3.8 mmol/L 3.5 - 5.0 mmol/LMetroHealthComment on above:Note updated reference ranges. Note updated reference ranges. Sodium [Moles/Vol]141 mmol/L136 - 145 mmol/LMetroHealthComment on above:Note updated reference ranges.Urea nitrogen [Mass/Vol]18 mg/dL7 - 25 mg/dLMetroHealth Comment on above:Note updated reference ranges.C-PEPTIDE, SERUMon 35-20-7893ZMIZ 0.76 ng/mLLow0.81-3.85The [facility] SystemComment on above:Performed By: #### LACT, CR ICA #### [facility] [address] [place], [address]UJOPHXR, IONIZEDon 19-10-8241XE ICA1.17 mmol/LNormal 1.15-1.33The [facility] SystemComment on above:Result Comment: This test was developed, and its performance characteristics determined by the Department of Pathology of [facility]. It has not been cleared or approved by the FDA. This test is used for clinical purposes only.Performed By: #### LACT, CR ICA #### [facility] [address] [place], [address]FIEVGJU, IONIZEDOrdered By: Delilah Alcantara on 01-03-2024 Calcium.ionized (Bld) [Moles/Vol]1.17 mmol/L1.15 - 1.33 mmol/LMetroHealthComment on above:This test was developed, and its performance characteristics determined by the Department of Pathology of [facility]. It has not been cleared or approved by the FDA. This test is used forclinical purposes only.Interpretation and review of laboratory resultsNormalMetKettering Health Behavioral [facility] Center CBC panel Auto (Bld)Ordered By: Geoffrey Dodd on 01-83-1817Acnsuebtxir distribution width (RBC) [Ratio]14.1 %11.5 - 14.5 %MetroHealthHematocrit (Bld) [Volume fraction]39.0 %36.0 - 46.0 %MetroHealthHemoglobin (Bld) [Mass/Vol]12.7 g/dL12.0 - 15.0 g/dLMetroHealthInterpretation and review of laboratory results NormalMetroHealthMCH (RBC) [Entitic mass]31.6 pg26.0 - 34.0 pgMetroHealthMCHC (RBC) [Mass/Vol]32.5 g/dL32.0 - 35.9 g/dLMetroHealthMCV (RBC) [Entitic vol]97 fL 80 - 100 fLMetroHealthPlatelet mean volume (Bld) [Entitic vol]9.0 fL7.5 - 11.2 fLMetroHealthPlatelets (Bld) [#/Vol]264 10*3/uL150 - 400 K/uLMetroHealthRBC (Bld) [#/Vol]4.01 10*6/uLMetroHealthWBC (Bld) [#/Vol]8.7 10*3/uL4.5 - 11.5 K/uL MetroHealthMetroHealthCOMPLETE BLOOD COUNTon 59-77-7423Dvomtndqpcg distribution width (RBC) [Ratio]14.1 %Pftqgc99.5-14.5The [facility] HealthroHealth SystemComment on above: Performed By: #### LACT, CR ICA #### [facility] PATHOLOGY LABORATORY [address] [place] [address], [address]Nctddxgnlw (Bld) [Volume fraction]39.0 %Tdhugg94.0-46.0 The [facility] HealthroHealth SystemComment on above:Performed By: #### LACT, CR ICA #### [facility] PATHOLOGY LABORATORY [address] [place] [address], [address]Ouamrovdbq (Bld) [Mass/Vol]12.7 g/lHAqfgau88.0-15.0The [facility] HealthroHealth SystemComment on above:Performed By: #### LACT, CR ICA #### [facility] PATHOLOGY LABORATORY [address] [place] [address], [address]LUL (RBC) [Entitic mass]31.6 tgEgylun56.0-34.0The [facility] HealthroHealth SystemComment on above:Performed By: #### LACT, CR ICA #### [facility] PATHOLOGY LABORATORY [address] [place] [address], [address]KBQU (RBC) [Mass/Vol]32.5 g/eLMuanlj92.0-35.9The MetroHealth SystemComment on above:Performed By: #### LACT, CR ICA #### [facility] PATHOLOGY LABORATORY [address] [place] [address], [address]OOL (RBC) [Entitic vol]97 qEDgupez00-167Nkk [facility] SystemComment on above:Performed By: #### LACT, CR ICA #### [facility] PATHOLOGY LABORATORY [address] [place], [address]Lrrhgfqq mean volume (Bld) [Entitic vol]9.0 fLNormal 7.5-11.2The [facility] HealthroHealth SystemComment on above:Performed By: #### LACT, CR ICA #### [facility] PATHOLOGY LABORATORY [address] [place], [address]Kkgprwgjc (Bld) [#/Vol]264 10*3/nKGgbfjt262-888Qjo [facility] SystemComment on above:Performed By: #### LACT, CR ICA #### [facility] PATHOLOGY LABORATORY [address] [place], [address]HJX (Bld) [#/Vol]4.01 10*6/uLNormal4.00-5.20The [facility] SystemComment on above:Performed By: #### LACT, CR ICA #### [facility] PATHOLOGY LABORATORY [address] [place] [address], [address]CWJ (Bld) [#/Vol]8.7 10*3/uLNormal4.5-11.5The [facility] HealthroHealth SystemComment on above:Performed By: #### LACT, CR ICA #### [facility] PATHOLOG[facility] LABORATORY [address] [place] [address], [address]RO HEAD W/O CONTRASTon 13-32-6633NN HEAD W/O CONTRAST EXAMINATION: CT HEAD W/O CONTRAST 01/03/2024 06:11 AM CLINICAL HISTORY: re-eval known SAH/SDH ASSOCIATED DIAGNOSIS: re-eval known SAH/SDH ORDERING PROVIDER: PRECIOUS [employer]OLOG[employer] NOTE: COMPARISON: CT HEAD W/O CONTRAST 01/03/2024, 6:11 AM TECHNIQUE: Thin axial imaging of the head was performed without intravenous contrast. FINDINGS: Acute intraparenchymal hematoma in the right frontal lobe inferiorly measuring 1.8 x 0.9 cm. Small amount of parafalcine hemorrhagic blood products. Trace subdural hemorrhage along the right and leftfrontal convexities. On the right side measures up to 4 mm. On the left side measures up to 3 mm. No midline shift. The ventricles are within normal limits for age. The skull, paranasal sinuses and tympanomastoid cavities are normal. IMPRESSION: Expected evolution of intracranial hemorrhages. Acute right frontal parenchymal hematoma measuring 1.8 x 0.9 cm. Subcentimeter parafalcine and bilateral cerebral convexity subdural hematomas. No herniation or midline shift. MACRO: NoneNormalThe [facility] SystemCT Head WO contrastOrdered By: Gray Ferguson on [id number] NYU5336.5 (mGy.cm)[facility] Work Phone: ct SeriesHeadMetroHealth Work Phone: ctDI VOL67.5 (mGy)[facility] Work Phone: PHANTOM TYPEIEC Head Dosimetry PhantomMetroHealth Work Phone: [facility] Work Phone: ct Head WO contraston [id number]: CT HEAD W/O CONTRAST 01/03/2024 06:11 AM CLINICAL HISTORY: re-eval known SAH/SDH ASSOCIATED DIAGNOSIS: re-eval known SAH/SDH ORDERING PROVIDER: PRECIOUS MEY[employer] TECHNOLOGISTS NOTE: COMPARISON: CT HEAD W/O CONTRAST 01/03/2024, 6:11 AM TECHNIQUE: Thin axial imaging of the head was performed without intravenous contrast. FINDINGS: Acute intraparenchymal hematoma in the right frontal lobe inferiorly measuring 1.8 x 0.9 cm. Small amount of parafalcine hemorrhagic blood products. Trace subdural hemorrhage along the right and leftfrontal convexities. On the right side measures up to 4 mm. On the left side measures up to 3 mm. No midline shift. The ventricles are within normal limits for age. The skull, paranasal sinuses and tympanomastoid cavities are normal. IMPRESSION: Expected evolution of intracranial hemorrhages. Acute right frontal parenchymal hematoma measuring 1.8 x 0.9 cm. Subcentimeter parafalcine and bilateral cerebral convexity subdural hematomas. No herniation or midline shift. MACRO: None Gray Mcgill MD - 01/03/2024 EXAMINATION: CT HEAD W/O CONTRAST 01/03/2024 06:11 AM CLINICAL HISTORY: re-eval known SAH/SDH ASSOCIATED DIAGNOSIS: re-eval known SAH/SDH ORDERING PROVIDER: PRECIOUS MEY[employer] TECHNOLOGISTS NOTE: COMPARISON: CT HEAD W/O CONTRAST 01/03/2024, 6:11 AM TECHNIQUE: Thin axial imaging of the head was performed without intravenous contrast. FINDINGS: Acute intraparenchymal hematoma in the right frontal lobe inferiorly measuring 1.8 x 0.9 cm. Small amount of parafalcine hemorrhagic blood products. Trace subdural hemorrhage along the right and leftfrontal convexities. On the right side measures up to 4 mm. On the left side measures up to 3 mm. No midline shift. The ventricles are within normal limits for age. The skull, paranasal sinuses and tympanomastoid cavities are normal. IMPRESSION: Expected evolution of intracranial hemorrhages. Acute right frontal parenchymal hematoma measuring 1.8 x 0.9 cm. Subcentimeter parafalcine and bilateral cerebral convexity subdural hematomas. No herniation or midline shift. MACRO: None [facility]HealthRadiology Study observation (narrative)[facility] [id number] Authentication Interface Message TextNEUROSURGERY CRANIAL TRAUMA H AND P Patient Name: Michelle Nash Primary Care Physician: No primary care provider on file. CONSULTED BY: Trauma CONSULTED FOR: SAH/SDH/IPH CHIEF COMPLAINT: I fell HPI: 83yo F w/ PMH HTN, HLD, ILD, T2DM, GERD, anxiety presenting to [place] ED after fall from standing. Was at pharmacy where she hit head onto exit door, fell backward and hit head on floor. CTH at [place] demonstrated parafalcine SDH and SAH vs IPH on the anterior inferior frontal lobe. Neurosurgery consulted for evaluation. Patient endorses story as above. Denies nausea, vomiting, blurry vision, dizziness, history of falls, bowel/bladder incontinence. Additional injuries include: None Antiplatelet/Anticoagulant: None Coags: Pending Sodium: Pending Previous TBI:No PAST MEDICAL HISTORY: No past medical history on file. PAST SURGICAL HISTORY: No past surgical history on file. FAMILY HISTORY: No family history on file. SOCIAL HISTORY: Social History Occupational History Not on file Tobacco Use Smoking status: Not on file Smokeless tobacco: Not on file Substance and Sexual Activity Alcohol use: Not on file Drug use: Not on file Sexual activity: Not on file MEDICATIONS: levETIRAcetam orderable 500 mg Every 12 hours insulin regular 2-12 Units Every 6 hours sodium chloride dextrose iv for hypoglycemia orderable 125 mL PRN Or glucagon 1 mg PRN Or dextrose 15 g of glucose PRN Or dextrose 30 g of glucose PRN ALLERGIES: Not on File COMPLETE REVIEW OF SYSTEMS: ROS 11/09 systems negative other than above LABS: Basic Metabolic Panel None PHYSICAL EXAM: Awake, Alert, Ox3 Following Commands Speech intact PERRL, EOMI FS, TM BUE 5/5, no drift BLE 5/5 Sensation intact to light touch throughout PHYSICAL EXAMINATION: Vital signs reviewed General appearance: normal appearing Skin: warm, dry Head: Normocephalic Nose/Sinuses: Nares normal. Neck: supple, trachea midline Lungs: chest symmetric, normal respiratory rate and rhythm Heart: NSR on tele monitor Abdomen: soft, nontender Extremities: Extremities normal. No deformities or edema Neuro: above RADIOLOGY: CTH: (Per [place] report): Focal SAH vs contra-coup IPH in inferior frontal lobe. Parafalcine SDH. [place] CT SCORE: 1. Basal cisterns: 0: Normal 2. Midline shift: 0: Less than or equal to 5 mm 3. Epidural mass lesion: 1: Absent 4. Intraventricular blood or traumatic SAH: 0: Absent Total Score: 2 (Calculated sum + 1) Six Month Mortality: Score 1: 0% Score 2: 7% Score 3: 16% Score 4: 26% Score 5: 53% Score 6: 61% 1. TBI sub-type: SAH, SDH: Less than 1 cm, and Contusion/ICH (Any Dimension): Less than 1 cm 2. Laterality: Right 3. Location: Frontal, Parafalcine/Tentorial 4. Pupillary response: Both reactive 5. Associated conditions: None 6. Loss of consciousness: None ASSESSMENT/PLAN: 83yo F w/ PMH HTN, HLD, ILD, T2DM, GERD, anxiety presenting to [place] after fall from standing. Was at pharmacy where she hit head onto exit door, fell backward and hit head on floor. CTH at [place] demonstrated parafalcine SDH and SAH vs IPH on the anterior inferior frontal lobe. Will plan to monitor with interval imaging. -ICU admission under trauma service -Q2 neuro checks -Repeat CT head 6 hours after initial imaging (~0700) -Keppra 750 mg BID x 7 days for seizure prophylaxis -SBP <170 per trauma guidelines -NPO -Ensure pre op labs complete (CBC, BMP, Type and Screen, PT/INR, PTT) -Hold all antiplatelets/anticoagulants -Plts >100, INR <1.4 -Normonatremia , normothermia (<38.0 C) , euvolemia -SCDs only at this time for DVT prophylaxis. Hold SQH at this time -No acute neurosurgical intervention. Will continue to follow Patient seen within 30 minutes of initial consultation. Recommendations provided directly to the trauma service. Above plan was discussed with the chief resident within 30 minutes of consult and discussed with the staff Dr. Olmedo who agrees with the above management. Please call anytime with questions or concerns. Kevin Coombs MD Neurosurgery, Resident Pager: [phone] 01/03/2024 - 5:50 AM Please page the on-call pager after 6pm and on weekends Split/Shared Documentation I approve the management plan for this patient and take responsibility for the plan as documented. Discussion of Management or Test Interpretation with External Physician/KAMLESH: I personally performed and discussed the management of case or test interpretation with sap pp consultant Dr. Olmedo with findings of TBI. Kevin Coombs MD Teaching Physician Note: I saw and evaluated the patient. I personally obtained the lane and critical portions of the history and physical exam. I reviewed the resident's documentation and discussed the patient with the resident. I agree with the resident's medical decision making as documented in the resident's note. Gray Olmedo, (more content not included)...NormalThe [facility] GLUCOSE, FINGERSTICK-IN OFFICEon [id number] [Mass/Vol]187 mg/lPYcuj71-894 The [facility] SystemComment on above:Performed By: #### LACT, CR ICA #### [facility] [address] [place] [address], [phone] [Mass/Vol]187 mg/lCSibe78 - 116 mg/dL MetroHealthInterpretation and review of laboratory resultsAbnormalMetroHealth MetroHealthGlucose [Mass/Vol]161 mg/wHPctz65-089Mvs [facility] SystemComment on above:Result Comment: Notified VÍCTOR DC MDPerformed By: #### LACT, CR ICA #### [facility] [address] [place] [address], [phone] [Mass/Vol]161 mg/iSGmht16 - 116 mg/dL MetroHealthComment on above:Notified VÍCTOR DC MDInterpretation and review of laboratory resultsAbnormalMetroHealthMetroHealthGlucose [Mass/Vol]82 mg/dLNormal 80-116The [facility] SystemComment on above:Performed By: #### LACT CR ICA #### [facility] [address] [place], [phone] [Mass/Vol]82 mg/dL80 - 116 mg/dLMetroHealth Interpretation and review of laboratory resultsNormalMetroHealthMetroHealth Glucose [Mass/Vol]103 mg/aOZpyhmm84-303Lij [facility] SystemComment on above: Performed By: #### CHARLINE SALAZAR ICA #### [facility] [address] [place], [address]Ixutscg [Mass/Vol]103 mg/dL80 - 116 mg/dLMetroHealth Interpretation and review of laboratory resultsNormalMetroHealthMetroHealthH AND Regan 30-97-5194Zutmvfqogapka Authentication Interface Message Text Attestation signed by Ash Pearl MD at 01/12/2024 3:03 PM Teaching Physician Note: I saw and evaluated the patient. I personally obtained the lane and critical portions of the history and physical exam. I reviewed the resident's documentation and discussed the patient with the resident. I agree with the resident's medical decision making as documented in the resident's note. Ash Pearl MD [facility] DIVISION OF ACUTE CARE SURGERY SURGICAL CRITICAL CARE HISTORY AND PHYSICAL Reason for consultation: SAH/SDH Referring physician: Mariann Morfin HPI: 83 F hx Dm2m no AC/AP who presents as transfer from [facility] s/p fall from standing. Was at [facility] when lost balance 2/2 automatic doors. Possibly some component of hypoglycemia as she is on a new insulin regimen and Bgl at OSH was 56. GCS 15, no focal deficits. Transferred due to repeat imaging with 3mm SDH and trace SAH, requiring NSGY eval. PMH: No past medical history on file. Anxiety, GERD, HLD, HTN, ILD, IDDM2 PSH: No past surgical history on file. MEDS: None Insulin, steroids for ILD, inhalers ALL: Not on File FH: No family history on file. SH: Social History Socioeconomic History Marital status: Review Of Systems: Skin: negative Eyes: negative review of symptoms Ears/Nose/Throat: negative Respiratory: negative symptoms (no cough, hemoptysis, SOB, WHEELER, PND, wheezing) Cardiovascular: negative symptoms (No CP/Pressure/Tightness, palpitations, orthopnea, PND, SOB, WHEELER, edema, OBRIEN or vision change) Gastrointestinal: negative symptoms (no abdominal pain, anorexia, n/v, indigestion, constipation, or diarrhea) Genitourinary: no urinary symptoms Neurologic: weakness negative (no arthritic pain, no joint swelling, no muscle weakness) Psychiatric: negative (no sleep disturbance, anxiety, memory loss, disorientation, inattention, feelings of depression) Hematologic/Lymphatic/Immunologic: negative (no anemia, bleeding, bruising) Endocrine: Diabetes Mellitus PHYSICAL EXAM: VITALS: Vitals: 01/03/24 0500 Temp: 97.9 ???F (36.6 ???C) Patient Vitals for the past 24 hrs: Temp Temp src O2 Device 01/03/24 0500 97.9 ???F (36.6 ???C) Oral Room air Physical Exam Constitutional: General: She is not in acute distress. Appearance: Normal appearance. She is not ill-appearing. Eyes: Extraocular Movements: Extraocular movements intact. Pupils: Pupils are equal, round, and reactive to light. Cardiovascular: Rate and Rhythm: Normal rate and regular rhythm. Pulses: Normal pulses. Pulmonary: Effort: Pulmonary effort is normal. No respiratory distress. Abdominal: General: Abdomen is flat. Palpations: Abdomen is soft. Musculoskeletal: General: Normal range of motion. Skin: General: Skin is warm and dry. Neurological: General: No focal deficit present. Mental Status: She is alert and oriented to person, place, and time. Psychiatric: Mood and Affect: Mood normal. Behavior: Behavior normal. LABS: CBC/PT/INR None Basic Metabolic Panel None Arterial Blood Gases None IMAGING (personally reviewed by me): CTH: R parafalcine 3mm SDH, contrecoup injury with foci of SAH along anterior-inferior frontal convexities R>L ASSESSMENT: Michelle Nash s a 83 year old female hx Dm2m no AC/AP who presents as transfer from [facility] s/p fall from standing, found to have SDH and SAH as above, possibly in setting of hypoglycemia PLAN: Neuro: NSGY consult, q1h NC, keppra 500mg BID CV: monitor, MAP goal <120, SBP <170 Pulm: respiratory brake reliner GI: NPO pending NSGY recs Renal: MIVF, daily labs, replace prn Heme: daily CBC, no indication for transfusion ID: no indication for abx Endo: SSI, hypoglycemia protocol MSK: PT/OT Wounds: n/a Lines: PIV PPx: SCDs, hold chemoppx pending NSGY Code Status: Full Isolation: [place] / Additional: No Dispo: ICU Pt seen, discussed with Dr. Pearl, staff surgeon Precious Meyers MD General Surgery PGY-3 ACS Consult: [phone] ACS Floor: [phone] TICU/SICU/BICU NightfloatNormalThe [facility] SystemLACTIC ACIDon [id number] LACT1.4 mmol/LNormal0.5-1.6The [facility] SystemComment on above:Performed By: #### LACT, CR ICA #### [facility] [address] [place] [address], [phone] and review of laboratory resultsNormal MetroHealthLactate [Moles/Vol]1.4 mmol/L0.5 - 1.6 mmol/LMetroHealthMetroHealth MAGNESIUMon 62-03-5081Plfuqoufi [Mass/Vol]1.9 mg/dLNormal1.9-2.7The [facility] SystemComment on above:Result Comment: Note updated reference ranges.Performed By: #### LACT, CR ICA #### [facility] [address] [place] [address], [phone] [Mass/Vol]1.9 mg/dL1.9 - 2.7 mg/dLMetroAvita Health System Comment on above:Note updated reference ranges.No Panel Informationon 01-03-2024 Interpretation and review of laboratory resultsNormalMetroAvita Health SystemMetroAvita Health System Interpretation and review of laboratory resultsNormalMetroAvita Health SystemMetroAvita Health System PARTIAL THROMBOPLASTIN TIMEon [id number] Coag (Bld) [Time]33 aMbfxlo11-08Mcp [facility] SystemComment on above:Performed By: #### LACT, CR ICA #### [facility] [address] [place] [address], [phone] Coag (Bld) [Time]33 sMetroHealthPHOSPHORUSon 27-86-4375Jrvewultg [Mass/Vol]4.3 mg/dLNormal2.5-5.0The [facility] Comment on above:Result Comment: Note updated reference ranges.Performed By: #### LACT, CR ICA #### [facility] [address] [place] [address], [phone] [Mass/Vol]4.3 mg/dL2.5 - 5.0 mg/dLMetroAvita Health System Comment on above:Note updated reference ranges.PROTHROMBIN TIME AND INRon [id number] Coag (PPP) [Relative time]1.08 {INR}Normal0.90-1.10The [facility] SystemComment on above:Performed By: #### LACT, CR ICA #### [facility] [address] [place] [address], [phone] Coag (PPP) [Time]12.1 sNormal9.7-12.9The [facility] SystemComment on above:Performed By: #### LACT, CR ICA #### [facility] [address] [place] [address], [phone] Coag (PPP) [Relative time]1.08 {INR}0.90 - 1.10 [facility] HospitalPT Coag (PPP) [Time]12.1 sMetroHealthProgress Noteson 01-03-2024 Belt Maker Authentication Interface Message TextDivision of Trauma, Surgical Critical Care, EGS Ticket to Roll Note The patient is transferring from SICU, room # 411, to [address], room # AC6. The patient was added to the Trauma Surgery list. Handoff to Ramsey Esquivel MD. Katherine Byrd MD RUP = Receiving unit provider RNF = Regular nursing [facility] SystemTranscription Authentication Interface Message Text Attestation signed by Kalen Garrett MD at 01/03/2024 3:28 PM Teaching Physician Note: I saw and evaluated the patient. I personally obtained the lane and critical portions of the history and physical exam. I reviewed the resident's/KAMLESH's documentation and discussed the patient with the resident/KAMLESH. I agree with the medical decision making as documented in the resident's/KAMLESH's note, with the following addenda/exceptions: NSGY signed off after stable [facility] [place] for Q4 neurochecks, transfer to floor PTOT Kalen Garrett MD Division of Trauma, Critical Care, [place], and Emergency General Surgery Department of Surgery [facility] [phone] DEPARTMENT OF SURGERY DIVISION OF TRAUMA, BURN, AND CRITICAL CARE SURGICAL INTENSIVE CARE UNIT (SICU) DAILY PROGRESS NOTE Patient: Michelle Nash, 83 year old, female : 1940 Admit Date: 01/03/2024 Room: [place] [address] Today's Date: 01/03/2024, Length of stay: 1 day(s) Code Status: Full Code Height: 5' 0 Weight: 60.9 kg BMI: 26.23 SURGICAL ICU - STAFF NOTE Patient seen and examined on 01/03/2024 Interval History/Events: Background: Michelle Nash is a 83 year old y/o female with PMH of HTN, HLD, T2DM, GERD, ILD no AC/AP who presents as transfer from [facility] s/p fall from standing. Was at pharmacy when lost balance 2/2 automatic doors. Possibly some component of hypoglycemia as she is on a new insulin regimen and Bgl at OSH was 56. GCS 15, no focal deficits. Transferred due to repeat imaging with 3mm SDH and trace SAH, requiring NSGY eval. Hospital Course: 01/03- admit 24 Hour Events: Neurosurgery c/s, q2h neuro checks, repeat imaging Vitals AND I/Os: 24 Hour Vitals Range: Vital sign ranges over the past 24 hours (retrieved 01/03/2024 at 11:21 AM): Tmax (24 hours): 97.9 ???F (36.6 ???C) Pulse Av.4 Min: 70 Max: 78 Systolic (24hrs), Av , Min:127 , Max:152 Diastolic (24hrs), Av, Min:57, Max:85 MAP (mmHg) Av.4 mmHg Min: 74 mmHg Max: 100 mmHg Resp Av.2 Min: 13 Max: 26 SpO2 Av.4 % Min: 98 % Max: 100 % Vital Signs: Patient Vitals for the past 24 hrs: BP Temp Temp src Pulse Resp SpO2 O2 Device 01/03/24 1000 127/60 -- -- 70 26 99 % -- 01/03/24 0900 131/57 -- -- 73 21 98 % -- 01/03/24 0800 145/85 97.6 ???F (36.4 ???C) Oral 78 22 100 % Room air 01/03/24 0700 132/62 -- -- 73 22 98 % -- 01/03/24 0600 132/65 -- -- 76 13 100 % -- 01/03/24 0545 151/61 -- -- 71 20 100 % -- 01/03/24 0530 152/63 -- -- 73 15 100 % -- 01/03/24 0520 -- -- -- 75 14 100 % -- 01/03/24 0500 152/63 97.9 ???F (36.6 ???C) Oral 72 20 100 % Room air 24 Hour I AND Os: In: 151.3 (2.5 mL/kg) [I.V.:151.3 (0.1 mL/kg/hr)] Out: 300 (4.9 mL/kg) [Urine:300 (0.2 mL/kg/hr)] Net: -148.8 Weight: 60.9 kg Physical Exam: General: Alert, sitting up in bed, conversational, no apparent distress. HEENT: PERRL, EOMI, no conjunctival injection or scleral icterus. Cardiac: Regular rate and rhythm Pulmonary: Clear to auscultation bilaterally. No wheezing, rhonchi, or rales. Abdomen: Soft, non-tender, non-distended. Extremities: Normal ROM, no peripheral edema. Neurological: AAOx4, motor and sensory grossly intact as tested.GCS 15 Lab Data: 8.7 12.7 / 264 / 39.0 CBC: 01/03/2024: 5:33 AM 141 104 18 / 116 3.8 25 0.51 BMP: 01/03/2024: 6:16 AM BMP: Basic Metabolic Panel Na K Cl CO2 Gap Glu BUN Cr Ca 01/03/24 0616 141 Comment: Note updated reference ranges. 3.8 Comment: Note updated reference ranges. Note updated reference ranges. 104 Comment: Note updated reference ranges. 25 Comment: Note updated reference ranges. 16 116 18 Comment: Note updated reference ranges. 0.51 Comment: Note updated reference ranges. 9.5 Comment: Note updated reference ranges. CBC: CBC (last 3 years, up to 5 values) WBC RBC Hgb Hct MCV RDW Plt 01/03/24 0533 8.7 4.01 12.7 39.0 97 14.1 264 PT/PTT/INR: PT/PTT/INR (last 3 years, up to 5 values) PT aPTT INR 01/03/24 0533 33 01/03/24 0533 1.08 Type AND Screen: Type AND Screen None ABG: Arterial Blood Gases None BNP: No result for BNP Hepatic Panel: LFT's (last 3 years, up to 5 values) None Glucose: Fingerstick Glucose (last 72 hours) Glucose 01/03/24 0838 82 01/03/24 0504 103 A1c: No results found for: HBA1C TSH: No results found for: TSH Blood Culture: Blood Culture None Urine Culture: Urine Culture (last 1 year) None Respiratory Culture: Respiratory Culture, Misc None Wt Readings from Last 5 Encounters: 01/03/24 134 lb 4.8 oz (60.9 kg) Imaging Results (over previous 24 hours): CT HEAD W/O CONTRAST Result Date: 01/03/2024 EXAMINATION: CT HEAD W/O CONTRAST 01/03/2024 06:11 AM CLINICAL HISTORY: re-eval known SAH/SDH ASSO (more content not included)...NormalThe [facility] CHEMISTRYOrdered By: Lab ROPUser on [id number] [Mass/Vol]120 mg/gUInkk74 - 99 mg/dLJIM TALIAFERRO [facility] [place] POC SubsectionComment on above:Result Comment: Notified RN/ASHLEY Device [id number] 1Invalid Interpretation CodeJIM TALIAFERRO [facility] [place] POC SubsectionPOC User ID [id number] 1Invalid Interpretation CodeJIM [facility]ALIAFERRO [facility] [place] POC SubsectionPOC UsernameNEALEY, KAITLINInvalid Interpretation CodeJIM TALIAFERRO [facility] [place] POC SubsectionCHEMISTRYOrdered By: SYSTEM SYSTEM on 65-26-8103Haryegc [Mass/Vol]3.6 g/dLNormal3.3 - 5.0 gm/dLRemisol Chem Albumin/Globulin [Mass ratio]0.9 {ratio}Low1.1 - 2.2Remisol ChemAlk Phos76 [iU]/nWwysgp56 - 98 Int._Unit/LRemisol WigqFOX58 [iU]/dNormal6 - 46 Int._Unit/L Remisol ChemAnion gap [Moles/Vol]11 mmol/LNormal6 - 16 mEq/LRemisol XhhxDTJ21 [iU]/dNormal5 - 43 Int._Unit/LRemisol ChemBili Direct0.1 mg/dLNormal0.0 - 0.4 mg/dLRemisol ChemBili Indirect0.4 mg/dLNormal0.1 - 0.9 mg/dLRemisol ChemBili Total0.5 mg/dLNormal0.0 - 1.1 mg/dLRemisol ChemCalcium [Mass/Vol]9.5 mg/dLNormal 8.9 - 11.1 mg/dLRemisol ChemChloride [Moles/Vol]102 mmol/KTkdiaf017 - 111 mmol/L Remisol ChemCO2 [Moles/Vol]27 mmol/HQvtpra09 - 31 mmol/LRemisol ChemCreatinine [Mass/Vol]0.6 mg/dLNormal0.5 - 1.3 mg/dLRemisol OuqplIUH70 mL/min/1.73 r8Lzhhmr >=59mL/min/1.73 r2Dnewowx ChemGlobulin (S) [Mass/Vol]3.9 g/dLNormal1.4 - 4.0 gm/dLRemisol ChemGlucose [Mass/Vol]143 mg/cQVsavyz63 - 199 mg/dLRemisol Chem Lipase Lvl13 unit/CCpfemj75 - 58 unit/LRemisol ChemPotassium [Moles/Vol]4.0 mmol/LNormal3.5 - 5.3 mmol/LRemisol ChemProtein [Mass/Vol]7.5 g/dLNormal6.0 - 7.8 gm/dLRemisol ChemSodium [Moles/Vol]136 mmol/ASjyynq263 - 145 mmol/LRemisol ChemTroponin6.30 pg/mLLow10.10 - 27.10 pg/mLRemisol ChemComment on above: Interpretive Data: The 95% CI (Confidence Interval) PPV (Positive Predictive Value) for myocardial infarction in females is 38 pg/mL, in males 51 pg/mL. The results should be used in conjunction withclinical conditions of myocardial infarction. (Access High Sensitivity Troponin I Instructions For Use, [facility], June 2018)Urea nitrogen [Mass/Vol]18 mg/dLNormal5 - 21 mg/dLRemisol ChemUrea nitrogen/Creatinine [Mass ratio]30 mg/wuGmbm17 - 20Remisol ChemHEMATOLOGYOrdered By: Daegis SYSTEM on 79-56-2652Kabwuqugg/100 WBC (Bld)0.6 %Normal0.0 - 2.0 %[facility] HemeAutoSSBasophils/Leukocytes Auto (Bld) [Pure # fraction]0.1 E9/LNormal0.0 - 0.2 E9/LFTMC HemeAutoSSEosinophils/100 WBC (Bld)1.5 %Normal0.0 - 8.0 %[facility] HemeAutoSSEosinophils/Leukocytes Auto (Bld) [Pure # fraction]0.1 E9/LNormal0.0 - 0.5 E9/LFTMC HemeAutoSSLymphocytes/100 WBC (Bld)13.5 %Low14.0 - 50.0 %[facility] HemeAutoSSLymphocytes/Leukocytes Auto (Bld) [Pure # fraction]1.2 E9/LNormal1.0 - 4.0 E9/LFTMC HemeAutoSSMonocytes/100 WBC (Bld)7.9 %Normal4.0 - 14.0 %[facility] HemeAutoSSMonocytes/Leukocytes Auto (Bld) [Pure # fraction]0.7 E9/LNormal0.2 - 1.0 E9/LFTMC HemeAutoSSNeutrophils/100 WBC (Bld)76.5 %High36.0 - 75.0 %[facility] HemeAutoSSNeutrophils/Leukocytes Auto (Bld) [Pure # fraction]7.0 E9/LNormal2.0 - 7.5 E9/LFTMC HemeAutoSSHEMATOLOGYOrdered By: Eveline Mason on 12-14-2023 Erythrocyte distribution width (RBC) [Ratio]13.6 %Ugirfg95.9 - 14.2 %[facility] HemeAutoSSHematocrit (Bld) [Volume fraction]41.0 %Bdhjrw93.0 - 46.0 %[facility] HemeAutoSSHemoglobin (Bld) [Mass/Vol]13.4 g/cXFpprpw59.0 - 16.0 gm/dLFTMC HemeAutoSSMCH (RBC) [Entitic mass]31.6 lgZedupl25.0 - 34.0 pgFTMC HemeAutoSSMCHC (RBC) [Mass/Vol]32.8 g/rASqjcdt87.4 - 36.0 gm/dLJIM [facility]AL[facility] [place] HemeAutoSSMCV (RBC) [Entitic vol]96.4 vRLqyjbo09.0 - 100.0 fLJIM [facility]IAFERRO [facility] [place] HemeAutoSSPlatelet mean volume (Bld) [Entitic vol]9.3 fLNormal6.4 - 10.8 fLJIM [facility]ALIAFERRO [facility] [place] HemeAutoSSPlatelets (Bld) [#/Vol]301.0 E9/DQclpad452.0 - 500.0 E9/LFMUSCOGEE HemeAutoSSRBC (Bld) [#/Vol]4.2 E12/LLow4.3 - 5.9 E12/[facility] HemeAutoSSWBC corrected for nucl RBC Auto (Bld) [#/Vol]9.2 E9/LNormal4.0 - 11.0 E9/[facility] HemeAutoSSMICRO OTHER TESTSOrdered By: Cyndy Wang on 14-41-8746Mayaunxbxw A AgNegative (12/14/23 9:31 AM)NormalNegativeJ[facility] [place] Man SeroInfluenzae B AgNegative 1 (12/14/23 9:31 AM)NormalNegativeJ[facility] [place] Man SeroComment on above:Interpretive Data: Test sensitivity and specificity vary for age group, specimen type, antigen types, and prevalence of disease. Test results must be evaluated in conjunction with other clinical dataavailable to the physician. Individuals who received nasally administered Influenza A vaccine may have positive test results up to 3 days after vaccination.Rapid COV Int NEG CtlPass (12/14/23 9:31 AM)NormalJIM [facility]ERR[facility] [place] Man SeroRapid COV Int POS CtlPass (12/14/23 9:31 AM)NormalJ[facility] Man SeroSARS-CoV+SARS-CoV-2 (COVID-19) Ag IA.rapid Ql (Resp)Not Detected 4 (12/14/23 9:31 AM)NormalNot DetectedJIM [facility] [place] Man SeroComment on above:Interpretive Data: The AA Partyitor System for Rapid Detection of SARS-CoV-2 is a chromatographic digital immunoassay intended for the direct and qualitative detection of SARS-CoV-2 nucleocapsid antigens in nasal swabs from individuals who are suspected of COVID-19 by their healthcare provider withinthe first five days of the onset of symptoms. Negative results should be treated as presumptive, do not rule out SARS-CoV-2 infection and should not be used as the sole basis for treatment or patient management decisions, including infection control decisions. Negative results should be considered in the context of a patient s recent exposures, history and the presence of clinical signs and symptoms consistent with COVID-19, and confirmed with a molecular assay, if necessary, for patient management. For in vitro diagnostic use. In the [place], only for use under an Emergency Use Authorization. In the [place], this test has not been FDA cleared or approved; this test has been authorized by FDA under an EUA for use by authorized laboratories; use by laboratories certified under the CLIA, 42 U.S.C. 263a, that meet requirements to perform moderate, high, or waived complexity tests and at the Point of Care (POC), i.e., in patient care settings operating under a CLIA Certificate of Waiver, Certificate of Compliance, or Certificate of Accreditation. This test has been authorized only for the detection of proteins from SARS-CoV-2, not for any otherviruses or pathogens; and, in the [facility], this test is only authorized for the duration of the declaration that circumstances exist justifying the authorization of emergency use of in vitro diagnostics for detection and/or diagnosis of the virus that causes COVID-19 under Section 564(b)(1) of the Act,21 U.S.C. 360bbb-3(b)(1), unless the authorization is terminated or revoked sooner.URINALYSISOrdered By: Cyndy Wang on 12-14-2023 Bacteria LM Ql (Urine sed)3+ /HPFInvalid Interpretation CodeTrace/HPFJIM [facility]ERR[facility] [place] UA Auto SSBilirubin Ql (U)Negative (12/14/23 10:43 AM)NormalNegativeJ[facility] [place] UA Auto SSClarity (U)Clear (12/14/23 10:43 AM)NormalClearFMUSCOGEE UA Auto SSColor (U)Yellow (12/14/23 10:43 AM)NormalYellowJIM [facility] [place] UA Auto SSCrystals LM Ql (Urine sed)Present (12/14/23 10:43 AM)NormalJ[facility] [place] UA Auto SSEpithelial cells.squamous LM.HPF (Urine sed) [#/Area]0-2 /HPFNormal0-2/HPFFT UA Auto SSGlucose Test strip (U) [Mass/Vol]3+ *ABN* (12/14/23 10:43 AM)Invalid Interpretation CodeNegativeFTMC UA Auto SSHemoglobin Ql (U)Negative (12/14/23 10:43 AM)NormalNegativeFT UA Auto SSKetones (U) [Mass/Vol]1+ *ABN* (12/14/23 10:43 AM)Invalid Interpretation CodeNegativeFT UA Auto SS [place].plasma/[place].RBC (Bld) [Mass ratio]0-3 /HPFNormal0-3/HPFFTMC UA Auto SSNitrite Ql (U)Positive *ABN* (12/14/23 10:43 AM)Invalid Interpretation CodeNegativeFT UA Auto SSpH (U)7.0 *NA* (12/14/23 10:43 AM)Invalid Interpretation Code5.0 - 9.0[facility] UA Auto SSProtein (U) [Mass/Vol]Negative (12/14/23 10:43 AM)NormalNegativeJ[facility] [place] UA Auto SSSpecific gravity (U) [Rel density]1.020 *NA* (12/14/23 10:43 AM)Invalid Interpretation Code1.005 - 1.030FT UA Auto SSUA Spec DescClean Catch (12/14/23 10:43 AM)NormalJ[facility] [place] UA Auto SSUrobilinogen Qn (U)0.2188352 {Vincent'U}/dLNormal0.0 - 1.0 EU/dLFT UA Auto SSWBC Auto Ql (U)Negative (12/14/23 10:43 AM)NormalNegativeJ[facility] [place] UA Auto SSWBC LM.HPF (Urine sed) [#/Area]6- 15 /HPFInvalid Interpretation Code0-5/HPFFTMC UA Auto SSCHEMISTRYOrdered By: SYSTEM SYSTEM on 18-78-8372Qmlryou [Mass/Vol]3.8 g/dLNormal3.3 - 5.0 gm/dLFTMC RemisolAlbumin/Globulin [Mass ratio]0.8 {ratio}Low1.1 - 2.2[facility] RemisolALP [Catalytic activity/Vol]78 [iU]/vEesshq67 - 98 Int._Unit/LFTMC RemisolALT No additional P-5'-P [Catalytic activity/Vol]16 [iU]/dNormal6 - 46 Int._Unit/LFTMC RemisolAnion gap [Moles/Vol]11 mmol/LNormal6 - 16 mEq/LFTMC RemisolAST [Catalytic activity/Vol]26 [iU]/dNormal5 - 43 Int._Unit/LFTMC RemisolBilirubin [Mass/Vol]0.2 mg/dLNormal0.0 - 1.1 mg/dLFT RemisolCalcium [Mass/Vol]9.4 mg/dL Normal8.9 - 11.1 mg/dLFT RemisolChloride [Moles/Vol]102 mmol/ZNpfflz057 - 111 mmol/LFTMC RemisolCO2 [Moles/Vol]29 mmol/YPggbob38 - 31 mmol/LFTMC Remisol Creatinine [Mass/Vol]0.7 mg/dLNormal0.5 - 1.3 mg/dLFT RemisolGFR/1.73 sq M.predicted among non-blacks MDRD (S/P/Bld) [Vol rate/Area]86 mL/min/1.73 m2 Normal>=59mL/min/1.73 m2[facility] [place] Chem SComment on above:Interpretive Data: Chronic kidney disease could be indicated at eGFR's of less than 60 mL/min/1.73m2. Kidney failure is indicated at less than 15 mL/min/1.73m2.Globulin (S) [Mass/Vol]4.5 g/dLHigh1.4 - 4.0 gm/dLFT RemisolGlucose [Mass/Vol]117 mg/dL Wwxkin93 - 199 mg/dLFT RemisolComment on above:Interpretive Data: If this glucose result represents a fasting glucose, interpretation should referto the following reference range: 55-99 mg/dLPotassium [Moles/Vol]3.8 mmol/LNormal3.5 - 5.3 mmol/LFTMC RemisolProtein [Mass/Vol]8.3 g/dLHigh6.0 - 7.8 gm/dLFT Remisol Sodium [Moles/Vol]138 mmol/DYvowxj453 - 145 mmol/LFTMC RemisolUrea nitrogen [Mass/Vol]32 mg/dLHigh5 - 21 mg/dLFT RemisolUrea nitrogen/Creatinine [Mass ratio]46 mg/ajPukk90 - 20FT RemisolCHEMISTRYOrdered By: Gagan Shanks on 78-41-0918CyF6l (Bld) [Mass fraction]8.5 %High<=5.9%[facility] ChemAutoSSCHEMISTRY Ordered By: SYSTEM SYSTEM on 89-00-6972Sauhowm [Mass/Vol]3.1 g/dLLow3.3 - 5.0 gm/dLFT RemisolAlbumin/Globulin [Mass ratio]0.8 {ratio}Low1.1 - 2.2FT[facility] RemisolALP [Catalytic activity/Vol]57 [iU]/oWhmuip37 - 98 Int._Unit/LFTMC RemisolALT No additional P-5'-P [Catalytic activity/Vol]17 [iU]/dNormal6 - 46 Int._Unit/LFTMC RemisolAnion gap [Moles/Vol]13 mmol/LNormal6 - 16 mEq/LFTMC RemisolAST [Catalytic activity/Vol]22 [iU]/dNormal5 - 43 Int._Unit/LFTMC Remisol Bilirubin [Mass/Vol]0.3 mg/dLNormal0.0 - 1.1 mg/dLFT RemisolCalcium [Mass/Vol] 10.2 mg/dLNormal8.9 - 11.1 mg/dLFT RemisolChloride [Moles/Vol]100 mmol/GKzi078 - 111 mmol/LFTMC RemisolCO2 [Moles/Vol]27 mmol/MOqvigj27 - 31 mmol/LFTMC RemisolCreatinine [Mass/Vol]0.7 mg/dLNormal0.5 - 1.3 mg/dLFTMC RemisolGFR/1.73 sq M.predicted among non-blacks MDRD (S/P/Bld) [Vol rate/Area]86 mL/min/1.73 m2 Normal>=59mL/min/1.73 m2[facility] [place] Chem SComment on above:Interpretive Data: Chronic kidney disease could be indicated at eGFR's of less than 60 mL/min/1.73m2. Kidney failure is indicated at less than 15 mL/min/1.73m2.Globulin (S) [Mass/Vol]4.0 g/dLNormal1.4 - 4.0 gm/dLJ[facility] [place] RemisolGlucose [Mass/Vol]179 mg/dL Mpxoea74 - 199 mg/dLJ[facility] [place] RemisolComment on above:Interpretive Data: If this glucose result represents a fasting glucose, interpretation should referto the following reference range: 55-99 mg/dLPotassium [Moles/Vol]4.0 mmol/LNormal3.5 - 5.3 mmol/LFTMC RemisolProtein [Mass/Vol]7.1 g/dLNormal6.0 - 7.8 gm/dLJ[facility] [place] RemisolSodium [Moles/Vol]136 mmol/KHialeo481 - 145 mmol/LFTMC RemisolUrea nitrogen [Mass/Vol]24 mg/dLHigh5 - 21 mg/dLJ[facility] [place] RemisolUrea nitrogen/Creatinine [Mass ratio]34 mg/maXecc23 - 20J[facility] [place] RemisolCHEMISTRYOrdered By: Bindu Huddleston on 95-84-0986ZxH5g (Bld) [Mass fraction]11.7 %High<=5.9%[facility] ChemAutoSSCHEMISTRY Ordered By: Marina Carrera on 99-10-6361Xebostr [Mass/Vol]123 mg/mAHbtb51 - 99 mg/dLJ[facility] [place] POC SubsectionComment on above:Result Comment: Notified RN/MDPOC Device [id number] 1Invalid Interpretation CodeJIM [facility]ALIAFERRO [facility] [place] POC SubsectionPOC User ID [id number] 1Invalid Interpretation CodeJIM [facility]FERR[facility] [place] POC SubsectionPOC UsernamCherelle Quachvallibertad Interpretation CodeJIM [facility]FERRO [facility] [place] POC SubsectionCHEMISTRYOrdered By: SYSTEM SYSTEM on 66-97-6806Rdott gap [Moles/Vol]11 mmol/LNormal6 - 16 mEq/LFTMC Remisol Calcium [Mass/Vol]9.9 mg/dLNormal8.9 - 11.1 mg/dLJ[facility] [place] RemisolChloride [Moles/Vol]103 mmol/IFsnlok527 - 111 mmol/LFTMC RemisolCO2 [Moles/Vol]24 mmol/L Efwxst41 - 31 mmol/LFTMC RemisolCreatinine [Mass/Vol]0.6 mg/dLNormal0.5 - 1.3 mg/dLFT RemisolGFR/1.73 sq M.predicted among non-blacks MDRD (S/P/Bld) [Vol rate/Area]89 mL/min/1.73 n0Yjmioq>=59mL/min/1.73 m2FT Chem SComment on above: Interpretive Data: Chronic kidney disease could be indicated at eGFR's of less than 60 mL/min/1.73m2. Kidney failure is indicated at less than 15 mL/min/1.73m2.Glucose [Mass/Vol]117 mg/eRImkrjm60 - 199 mg/dLJ[facility] [place] RemisolComment on above:Interpretive Data: If this glucose result represents a fasting glucose, interpretation should referto the following reference range: 55-99 mg/dLPotassium [Moles/Vol]4.1 mmol/LNormal3.5 - 5.3 mmol/LFTMC RemisolSodium [Moles/Vol]134 mmol/VVex078 - 145 mmol/LFTMC RemisolUrea nitrogen [Mass/Vol]22 mg/dLHigh5 - 21 mg/dLFT RemisolUrea nitrogen/Creatinine [Mass ratio]37 mg/mg High10 - 20FT RemisolCHEMISTRYOrdered By: Lab ROPUser on 27-04-2120Lddnjgv [Mass/Vol]270 mg/nERseo55 - 99 mg/dLJ[facility] [place] POC SubsectionComment on above:Result Comment: Notified RN/MDPOC Device [id number] 1Invalid Interpretation Code [facility] POC SubsectionPOC User [id number] 1Invalid Interpretation CodeFT POC SubsectionPOC UsernameVILLANUEVA, REYNASOLInvalid Interpretation CodeFT POC SubsectionGlucose [Mass/Vol]293 mg/mXLgpg05 - 99 mg/dLFT POC SubsectionComment on above:Result Comment: Notified RN/MDPOC Device [id number] 1Invalid Interpretation CodeFTMC POC SubsectionPOC User [id number] 1Invalid Interpretation CodeFT POC SubsectionPOC UsernamBALAJI LombardiICAInvalid Interpretation CodeFT POC SubsectionCHEMISTRYOrdered By: SYSTEM SYSTEM on 55-23-2924Cqteo gap [Moles/Vol]13 mmol/LNormal6 - 16 mEq/LFTMC RemisolCalcium [Mass/Vol]9.4 mg/dLNormal8.9 - 11.1 mg/dLFT RemisolChloride [Moles/Vol]103 mmol/FEidcjk052 - 111 mmol/LFTMC RemisolCO2 [Moles/Vol]26 mmol/NMcsmbv62 - 31 mmol/LFTMC RemisolCreatinine [Mass/Vol]0.6 mg/dLNormal0.5 - 1.3 mg/dLFTMC RemisolGFR/1.73 sq M.predicted among non-blacks MDRD (S/P/Bld) [Vol rate/Area]89 mL/min/1.73 g5Tpgxer>=59mL/min/1.73 m2FT Chem SComment on above:Interpretive Data: Chronic kidney disease could be indicated at eGFR's of less than 60 mL/min/1.73m2. Kidney failure is indicated at less than 15 mL/min/1.73m2.Glucose [Mass/Vol]230 mg/aZBzco20 - 199 mg/dLFT RemisolComment on above:Interpretive Data: If this glucose result represents a fasting glucose, interpretation should referto the following reference range: 55-99 mg/dLPotassium [Moles/Vol]3.6 mmol/LNormal3.5 - 5.3 mmol/LFTMC RemisolSodium [Moles/Vol]138 mmol/JPakdds584 - 145 mmol/LFTMC RemisolUrea nitrogen [Mass/Vol]18 mg/dLNormal5 - 21 mg/dLFT RemisolUrea nitrogen/Creatinine [Mass ratio]30 mg/luAorw20 - 20FT Remisol HEMATOLOGYOrdered By: Nara Oro on 81-88-4303Krqzbcdjvuo distribution width (RBC) [Ratio]15.3 %High10.9 - 14.2 %[facility] HemeAutoSSHematocrit (Bld) [Volume fraction]38.7 %Cqaxyh85.0 - 46.0 %[facility] HemeAutoSSHemoglobin (Bld) [Mass/Vol]13.0 g/eTRlyusd65.0 - 16.0 gm/dLFTMC HemeAutoSSMCH (RBC) [Entitic mass]31.9 pgNormal 27.0 - 34.0 pgFTMC HemeAutoSSMCHC (RBC) [Mass/Vol]33.5 g/uAHjohqy08.4 - 36.0 gm/dLFTMC HemeAutoSSMCV (RBC) [Entitic vol]95.3 uUMirfbz90.0 - 100.0 fLFTMC HemeAutoSSPlatelet mean volume (Bld) [Entitic vol]9.9 fLNormal6.4 - 10.8 fLFTMC HemeAutoSSPlatelets (Bld) [#/Vol]388.0 E9/VKfijcz901.0 - 500.0 E9/LFTMC HemeAutoSSRBC (Bld) [#/Vol]4.1 E12/LLow4.3 - 5.9 E12/LFTMC HemeAutoSSWBC corrected for nucl RBC Auto (Bld) [#/Vol]11.0 E9/LNormal4.0 - 11.0 E9/LFTMC HemeAutoSSCHEMISTRYOrdered By: SYSTEM SYSTEM on 16-88-9695Upcrl gap [Moles/Vol] 13 mmol/LNormal6 - 16 mEq/LFTMC RemisolCalcium [Mass/Vol]9.2 mg/dLNormal8.9 - 11.1 mg/dLFTMC RemisolChloride [Moles/Vol]101 mmol/LViuxbx170 - 111 mmol/LFTMC RemisolCO2 [Moles/Vol]22 mmol/RWsyjlw97 - 31 mmol/LFTMC RemisolCreatinine [Mass/Vol]0.6 mg/dLNormal0.5 - 1.3 mg/dLFTMC RemisolGFR/1.73 sq M.predicted among non-blacks MDRD (S/P/Bld) [Vol rate/Area]89 mL/min/1.73 n9Dwdhco >=59mL/min/1.73 m2[facility] Chem SComment on above:Interpretive Data: Chronic kidney disease could be indicated at eGFR's of less than 60 mL/min/1.73m2. Kidney failure is indicated at less than 15 mL/min/1.73m2.Glucose [Mass/Vol]290 mg/dL High55 - 199 mg/dLFTMC RemisolComment on above:Interpretive Data: If this glucose result represents a fasting glucose, interpretation should referto the following reference range: 55-99 mg/dLPotassium [Moles/Vol]3.8 mmol/LNormal3.5 - 5.3 mmol/LFTMC RemisolSodium [Moles/Vol]132 mmol/ZPga241 - 145 mmol/LFTMC RemisolUrea nitrogen [Mass/Vol]18 mg/dLNormal5 - 21 mg/dLFTMC RemisolUrea nitrogen/Creatinine [Mass ratio]30 mg/ebVvkl73 - 20FT[facility] RemisolHEMATOLOGYOrdered By: Gagan Shanks on 38-44-3629Iighvezrxzi distribution width (RBC) [Ratio] 15.3 %High10.9 - 14.2 %[facility] HemeAutoSSHematocrit (Bld) [Volume fraction]35.8 % Ddwrci90.0 - 46.0 %[facility] HemeAutoSSHemoglobin (Bld) [Mass/Vol]12.1 g/xSHttyfr31.0 - 16.0 gm/dLFTMC HemeAutoSSMCH (RBC) [Entitic mass]32.4 ezCeruwo84.0 - 34.0 pg [facility] HemeAutoSSMCHC (RBC) [Mass/Vol]33.8 g/lZZxvtsq38.4 - 36.0 gm/dLFTMC HemeAutoSSMCV (RBC) [Entitic vol]96.0 vVEhgrwo55.0 - 100.0 fLFTMC HemeAutoSS Platelet mean volume (Bld) [Entitic vol]10.1 fLNormal6.4 - 10.8 fLFTMC HemeAutoSSPlatelets (Bld) [#/Vol]359.0 E9/CTzkyry706.0 - 500.0 E9/LFTMC HemeAutoSSRBC (Bld) [#/Vol]3.7 E12/LLow4.3 - 5.9 E12/LFTMC HemeAutoSSWBC corrected for nucl RBC Auto (Bld) [#/Vol]9.0 E9/LNormal4.0 - 11.0 E9/LFTMC HemeAutoSSCHEMISTRYOrdered By: Nallely Mark on 83-84-7095Hnizgz (U) [Moles/Vol]71 mmol/LInvalid Interpretation CodeFTMC RemisolComment on above: Interpretive Data: The reference range and other method performance specifications have not been established for this test; results should be integrated into the clinical context for interpretation.CHEMISTRYOrdered By: Eveline Ji on 51-01-9497CiC3x (Bld) [Mass fraction]13.4 %High<=5.9%[facility] ChemAutoSSCHEMISTRYOrdered By: SYSTEM SYSTEM on 01-84-7344ASI Qn2.98 m[IU]/L Normal0.34 - 5.60 mcIU/mLFTMC RemisolCHEMISTRYOrdered By: SYSTEM SYSTEM on 95-99-7252Iwnbjwwqo (Vitamin B12) [Mass/Vol]250 pg/gINeqxgf07 - 1500 pg/mLFTMC RemisolFolate [Mass/Vol]ng/mLNormal>=6.7ng/mLFTMC RemisolMagnesium [Mass/Vol]1.3 mg/dLNormal1.3 - 2.4 mg/dLFTMC RemisolTroponin I.cardiac [Mass/Vol]12.30 pg/mL Dyduau06.10 - 27.10 pg/mLFTMC RemisolComment on above:Interpretive Data: The 95% CI (Confidence Interval) PPV (Positive Predictive Value) for myocardial i nfarction in females is 38 pg/mL, in males 51 pg/mL. The results should be used in conjunction withclinical conditions of myocardial infarction. (Access High Sensitivity Troponin I Instructions For Use, Emerita Christine, June 2018)HEMATOLOGYOrdered By: Nara Oro on 57-50-3999Pwrqjbzxali distribution width (RBC) [Ratio]15.5 %High10.9 - 14.2 %[facility] HemeAutoSSHematocrit (Bld) [Volume fraction]34.5 %Mjutvq83.0 - 46.0 %[facility] HemeAutoSSHemoglobin (Bld) [Mass/Vol]11.6 g/dLLow12.0 - 16.0 gm/dLFTMC HemeAutoSSMCH (RBC) [Entitic mass] 32.1 heSfamzj68.0 - 34.0 pgFTMC HemeAutoSSMCHC (RBC) [Mass/Vol]33.5 g/dLNormal 31.4 - 36.0 gm/dLJ[facility] HemeAutoSSMCV (RBC) [Entitic vol]95.9 lBXyfrpm62.0 - 100.0 fLJIM [facility]ALIAFERRO [facility] [place] HemeAutoSSPlatelet mean volume (Bld) [Entitic vol]10.5 fLNormal6.4 - 10.8 fLJIM [facility]ALIAFERRO [facility] [place] HemeAutoSSPlatelets (Bld) [#/Vol]300.0 E9/XNpwnkp229.0 - 500.0 E9/LFMUSCOGEE HemeAutoSSRBC (Bld) [#/Vol]3.6 E12/LLow4.3 - 5.9 E12/[facility] HemeAutoSSWBC corrected for nucl RBC Auto (Bld) [#/Vol]9.7 E9/LNormal4.0 - 11.0 E9/[facility] HemeAutoSSMICRO OTHER TESTSOrdered By: Carmel Gamez on 66-27-8968Ygwznmsgtq A Ag Negative (09/16/23 3:30 AM)NormalNegativeJ[facility] [place] Man SeroInfluenzae B AgNegative 1 (09/16/23 3:30 AM)NormalNegativeJ[facility] [place] Man SeroComment on above:Interpretive Data: Test sensitivity and specificity vary for age group, specimen type, antigen types, and prevalence of disease. Test results must be evaluated in conjunction with other clinical dataavailable to the physician. Individuals who received nasally administered Influenza A vaccine may have positive test results up to 3 days after vaccination.Rapid COV Int NEG CtlPass (09/16/23 3:30 AM)NormalJ[facility]ERR[facility] [place] Man SeroRapid COV Int POS CtlPass (09/16/23 3:30 AM)NormalJ[facility] Man SeroSARS-CoV+SARS-CoV-2 (COVID-19) Ag IA.rapid Ql (Resp)Not Detected 17 (09/16/23 3:30 AM)NormalNot DetectedJ[facility] [place] Man SeroComment on above:Interpretive Data: The [employer]itor System for Rapid Detection of SARS-CoV-2 is a chromatographic digital immunoassay intended for the direct and qualitative detection of SARS-CoV-2 nucleocapsid antigens in nasal swabs from individuals who are suspected of COVID-19 by their healthcare provider withinthe first five days of the onset of symptoms. Negative results should be treated as presumptive, do not rule out SARS-CoV-2 infection and should not be used as the sole basis for treatment or patient management decisions, including infection control decisions. Negative results should be considered in the context of a patient s recent exposures, history and the presence of clinical signs and symptoms consistent with COVID-19, and confirmed with a molecular assay, if necessary, for patient management. For in vitro diagnostic use. In the [place], only for use under an Emergency Use Authorization. In the [place], this test has not been FDA cleared or approved; this test has been authorized by FDA under an EUA for use by authorized laboratories; use by laboratories certified under the CLIA, 42 U.S.C. 263a, that meet requirements to perform moderate, high, or waived complexity tests and at the Point of Care (POC), i.e., in patient care settings operating under a CLIA Certificate of Waiver, Certificate of Compliance, or Certificate of Accreditation. This test has been authorized only for the detection of proteins from SARS-CoV-2, not for any otherviruses or pathogens; and, in the [place], this test is only authorized for the duration of the declaration that circumstances exist justifying the authorization of emergency use of in vitro diagnostics for detection and/or diagnosis of the virus that causes COVID-19 under Section 564(b)(1) of the Act,21 U.S.C. 360bbb-3(b)(1), unless the authorization is terminated or revoked sooner.Reference Laboratory TestingOrdered By: Generated DomainUser on 97-71-9820Nuvqjjdu [Mass/Vol]10.1 ug/dLInvalid Interpretation Code 6.2-19.4mcg/dLJ[facility] [place] SendOutsSSComment on above:Result Comment: Please Note: The reference interval and flagging for this test is for an AM collection. If this is a PM collection please use: Cortisol PM: 2.3-11.9 Performed at: [facility] [address], [place] [id number] PhD Cintia MendezentCHEMISTRYOrdered By: SYSTEM SYSTEM on 09-15-2023 Procalcitonin0.09 ng/mLNormal0.00 - 0.50 ng/mLFTMC RemisolComment on above: Interpretive Data: <0.5 ng/mL Low risk of severe sepsis and/or shock >2.0 ng/mL High risk of severe sepsis and/or shock Concentrations under 0.5 ng/mL do not exclude local infections or systemic infections in their initial stages (e.g.. under six hours from onset of illness). PCT concentrations between 0.5 and 2.0 ng/mL should be interpreted with consideration of the patient's history. In this range, it is recommended to retest PCT within 6 to 24 hours.Lactate [Mass/Vol]1.5 mmol/LNormal0.5 - 2.2 mmol/LFTMC RemisolAlbumin [Mass/Vol]3.3 g/dLNormal3.3 - 5.0 gm/dLFTMC Remisol Albumin/Globulin [Mass ratio]0.7 {ratio}Low1.1 - 2.2FT[facility] RemisolALP [Catalytic activity/Vol]95 [iU]/iPzclji99 - 98 Int._Unit/LFTMC RemisolALT No additional P-5'-P [Catalytic activity/Vol]16 [iU]/dNormal6 - 46 Int._Unit/LFTMC RemisolAST [Catalytic activity/Vol]20 [iU]/dNormal5 - 43 Int._Unit/LFTMC RemisolBilirubin [Mass/Vol]0.6 mg/dLNormal0.0 - 1.1 mg/dLFTMC RemisolBilirubin.direct [Mass/Vol] 0.2 mg/dLNormal0.1 - 0.4 mg/dLFTMC RemisolBilirubin.indirect [Mass or moles/Vol] 0.4 mg/dLNormal0.1 - 0.9 mg/dLFTMC RemisolGlobulin (S) [Mass/Vol]4.8 g/dLHigh1.4 - 4.0 gm/dLFTMC RemisolProtein [Mass/Vol]8.1 g/dLHigh6.0 - 7.8 gm/dLFTMC RemisolTroponin I.cardiac [Mass/Vol]10.10 pg/iNGdmesg87.10 - 27.10 pg/mLFTMC RemisolComment on above:Interpretive Data: The 95% CI (Confidence Interval) PPV (Positive Predictive Value) for myocardial infarction in females is 38 pg/mL, in males 51 pg/mL. The results should be used in conjunction withclinical conditions of myocardial infarction. (Access High Sensitivity Troponin I Instructions For Use, [employer], June 2018)TSH Qn4.57 m[IU]/LNormal0.34 - 5.60 mcIU/mLFTMC RemisolCHEMISTRY Ordered By: Carmel Gamez on [id number] I.cardiac [Mass/Vol]10.90 pg/mL Fsnaun60.10 - 27.10 pg/mLFTMC RemisolComment on above:Interpretive Data: The 95% CI (Confidence Interval) PPV (Positive Predictive Value) for myocardial i nfarction in females is 38 pg/mL, in males 51 pg/mL. The results should be used in conjunction withclinical conditions of myocardial infarction. (Access High Sensitivity Troponin I Instructions For Use, [employer], June 2018)FT Blood GasesOrdered By: Galina Loving on [id number] Test Not Applicable (09/15/23 7:50 PM)NormalFTMC Resp Auto SSDrawn bylabInvalid Interpretation Code [facility] Resp Auto SSpCO2 Ven39.2 mm[Hg]Pubnfg58.0 - 50.0 mmHgFTMC Resp Auto SSpH (Bld)7.390 [pH]Normal7.320 - 7.430[facility] Resp Auto SSSample SiteOTHER (09/15/23 7:50 PM)NormalFTMC Resp Auto SSSample TypeVenous Draw (09/15/23 7:50 PM)NormalFTMC Resp Auto SSSodium [Moles/Vol]21 mmol/LInvalid Interpretation CodeFTMC Resp Auto SSHEMATOLOGYOrdered By: SYSTEM SYSTEM on [id number]/100 WBC (Bld)0.6 %Normal0.0 - 2.0 %[facility] HemeAutoSS Basophils/Leukocytes Auto (Bld) [Pure # fraction]0.1 E9/LNormal0.0 - 0.2 E9/L [facility] HemeAutoSSEosinophils/100 WBC (Bld)0.2 %Normal0.0 - 8.0 %[facility] HemeAutoSS Eosinophils/Leukocytes Auto (Bld) [Pure # fraction]0.0 E9/LNormal0.0 - 0.5 E9/L [facility] HemeAutoSSLymphocytes/100 WBC (Bld)9.5 %Low14.0 - 50.0 %[facility] HemeAutoSS Lymphocytes/Leukocytes Auto (Bld) [Pure # fraction]1.1 E9/LNormal1.0 - 4.0 E9/L [facility] HemeAutoSSMonocytes/100 WBC (Bld)7.3 %Normal4.0 - 14.0 %[facility] HemeAutoSS Monocytes/Leukocytes Auto (Bld) [Pure # fraction]0.9 E9/LNormal0.2 - 1.0 E9/L [facility] HemeAutoSSNeutrophils/100 WBC (Bld)82.4 %High36.0 - 75.0 %[facility] HemeAutoSS Neutrophils/Leukocytes Auto (Bld) [Pure # fraction]9.7 E9/LHigh2.0 - 7.5 E9/L [facility] HemeAutoSSNo Panel InformationOrdered By: ANGPROCESSSERVER MICROBIOLOGY on [id number] Culture CharcoalNo growth at 5 days. Final to follow at 7 days. [facility] HospitalBlood Culture CharcoalNo growth at 5 days. Final to follow at 7 days.[facility] HospitalURINALYSISOrdered By: Bindu Huddleston on [id number] LM Ql (Urine sed)Trace /HPFNormalTrace/HPFFT UA Auto SSBilirubin Ql (U)Negative (09/15/23 9:02 PM)NormalNegativeFT UA Auto SSClarity (U)Clear (09/15/23 9:02 PM)NormalClearFTMC UA Auto SSColor (U)Yellow (09/15/23 9:02 PM)NormalYellowFT UA Auto SSEpithelial cells.squamous LM.HPF (Urine sed) [#/Area]0-2 /HPFNormal0-2/HPFFTMC UA Auto SSGlucose Test strip (U) [Mass/Vol]3+ *ABN* (09/15/23 9:02 PM)Invalid Interpretation CodeNegativeFT UA Auto SSHemoglobin Ql (U)Trace *ABN* (09/15/23 9:02 PM)Invalid Interpretation CodeNegativeFTMC UA Auto SSKetones (U) [Mass/Vol]2+ *ABN* (09/15/23 9:02 PM)Invalid Interpretation CodeNegativeFT UA Auto SS [place].plasma/[place].RBC (Bld) [Mass ratio]4-20 /HPFNormal0-3/HPFFTMC UA Auto SSNitrite Ql (U)Negative (09/15/23 9:02 PM)NormalNegativeFT UA Auto SSpH (U)5.5 *NA* (09/15/23 9:02 PM)Invalid Interpretation Code5.0 - 9.0FT UA Auto SSProtein (U) [Mass/Vol]Negative (09/15/23 9:02 PM)NormalNegativeJIM [facility] [place] UA Auto SSSpecific gravity (U) [Rel density]1.010 *NA* (09/15/23 9:02 PM)Invalid Interpretation Code1.005 - 1.030FT UA Auto SSUA Spec DescClean Catch (09/15/23 9:02 PM)NormalJIM [facility]IA[facility]ERR[facility] [place] UA Auto SSUrobilinogen Qn (U)0.8707526 {Vincent'U}/dLNormal0.0 - 1.0 EU/dLFT UA Auto SSWBC Auto Ql (U)Negative (09/15/23 9:02 PM)NormalNegativeJIM [facility] [place] UA Auto SSWBC LM.HPF (Urine sed) [#/Area]0- 5 /HPFNormal0-5/HPFFTMC UA Auto SSCHEMISTRYOrdered By: SYSTEM SYSTEM on 69-09-0101Hvpvhwf [Mass/Vol]3.2 g/dLLow3.3 - 5.0 gm/dLFTMC Remisol Albumin/Globulin [Mass ratio]0.7 {ratio}Low1.1 - 2.2[facility] RemisolALP [Catalytic activity/Vol]83 [iU]/uJhbkzq62 - 98 Int._Unit/LFTMC RemisolALT No additional P-5'-P [Catalytic activity/Vol]11 [iU]/dNormal6 - 46 Int._Unit/LFTMC Remisol Anion gap [Moles/Vol]10 mmol/LNormal6 - 16 mEq/LFTMC RemisolAST [Catalytic activity/Vol]18 [iU]/dNormal5 - 43 Int._Unit/LFTMC RemisolBilirubin [Mass/Vol] 0.4 mg/dLNormal0.0 - 1.1 mg/dLFTMC RemisolCalcium [Mass/Vol]9.2 mg/dLNormal8.9 - 11.1 mg/dLFTMC RemisolChloride [Moles/Vol]99 mmol/XGpt553 - 111 mmol/LFTMC RemisolCO2 [Moles/Vol]28 mmol/MZgqvmv71 - 31 mmol/LFTMC RemisolCreatinine [Mass/Vol]0.7 mg/dLNormal0.5 - 1.3 mg/dLFTMC RemisolGFR/1.73 sq M.predicted among non-blacks MDRD (S/P/Bld) [Vol rate/Area]86 mL/min/1.73 i3Xnagdq >=59mL/min/1.73 m2FTMC Chem SGlobulin (S) [Mass/Vol]4.7 g/dLHigh1.4 - 4.0 gm/dL FT RemisolGlucose [Mass/Vol]174 mg/dTMakwrw31 - 199 mg/dLFTMC RemisolPotassium [Moles/Vol]4.4 mmol/LNormal3.5 - 5.3 mmol/LFTMC RemisolProtein [Mass/Vol]7.9 g/dLHigh6.0 - 7.8 gm/dLFT RemisolSodium [Moles/Vol]133 mmol/ZKvs573 - 145 mmol/LFTMC RemisolUrea nitrogen [Mass/Vol]13 mg/dLNormal5 - 21 mg/dLFTMC Remisol Urea nitrogen/Creatinine [Mass ratio]19 mg/woRovdxe61 - 20FT[facility] Remisol HISTOPLASMA GALACTOMANNAN AG URINEon 83-02-8058Anuhfqbnuai Gal'elyse Ag<0.5 Normal<0.5 ng/mLThe [facility] HospitalComment on above:Performed By: #### HISTGAL #### [facility] [address] [place] [address] Dr. Whitney Yates AB QUANTITAIVE DOUBLE IMMUNODIFFUon 65-63-7406Uanbhzskzke flavusNegativeNormalNeg:<1:1[facility] CampusComment on above:Performed By: #### HISTGAL #### [facility] [address] [place] [address] Dr. Whitney Vasquezillus fumigatusNegativeNormalNeg:<1:1[facility] Comment on above:Performed By: #### HISTGAL #### [facility] [address] [place] [address] Dr. Whitney Mantilla nigerNegativeNormalNeg:<1:1[facility] Comment on above:Performed By: #### HISTGAL #### [facility] [address] [place] [address] Dr. Whitney ShirleyBlastomycesNegativeNormalNeg:<1:1[facility] CampusComment on above:Performed By: #### HISTGAL #### [facility] [address] [place] [address] Dr. Whitney Campuzano CAP AB QUANT DIDon [id number] Mycelial CF Ab.NegativeNormalNeg:<1:2[facility] CampusComment on above:Performed By: #### HISTDID #### [facility] [address] [place] [address] Dr. Whitney Campuzano Yeast CF AbNegativeNormalNeg:<1:2[facility] CampusComment on above:Performed By: #### HISTDID #### [facility] [address] [place] [address] Dr. Whitney Rangel. PERTUSSIS AB IGA/IGG/IGMon 04-02-2023 pertussis IgA Ab1.5 indexInvalid Interpretation Code0.0-0.9[facility] CampusComment on above: Result Comment: Client Requested Flag Negative <1.0 Borderline 1.0 - 1.1 Positive >1.1Performed By: #### HISTGAL #### [facility] [address] [place] [address] Dr. Whitney Rangel pertussis IgG Ab1.58 indexInvalid Interpretation Code0.00-0.[address] [facility] HospitalComment on above:Result Comment: Client Requested Flag Negative <0.95 Equivocal 0.95 - 1.04 Positive >1.04Performed By: #### HISTGAL #### [facility] [address] [place] [address] Dr. Whitney Rangel pertussis IgM Ab<1.0Fazeff0.0-0.9The [facility] HospitalComment on above:Result Comment: Negative <1.0 Borderline 1.0 - 1.1 Positive >1.1Performed By: #### HISTGAL #### [facility] [address] [place] [address] Dr. Whitney HoltAMYDIA PNEUMONIAE IgG IgM IgAon 21-52-3674Gfjrdidpq pneumoniae IgA<1:16NormalNeg:<1:16The [facility] HospitalComment on above:Performed By: #### BMP, MG, PHOS, TSH #### [facility] [address] [place] [address] Dr. Whitney ShirleyChlamydia pneumoniae IgG<1:16NormalNeg:<1:16The [facility] Comment on above:Performed By: #### BMP, MG, PHOS, TSH #### [facility] [address] [place] [address] Dr. Whitney ShirleyChlamydia pneumoniae IgM<1:10NormalNeg:<1:10The [facility] Comment on above:Performed By: #### BMP, MG, PHOS, TSH #### [facility] [address] [place] [address] Dr. Whitney ShirleyQUANTIFERON TB GOLD PLUSon 25-39-7541PsfebiQHJLP CriteriaComment NormalThe [facility] HospitalComsturgis hospital on above:Result Comment: QuantiFERON-TB Gold Plus is a qualitative indirect test for M tuberculosis infection (including disease) and is intended for use in conjunction with risk assessment, radiography, and other medical and diagnostic evaluations. The QuantiFERON-TB Gold Plus result is determined by subtracting the Nil value from either TB antigen (Ag) value. The Mitogen tube serves as a control for the test.Performed By: #### QNTTB #### [facility] [address] [place] [address] Dr. Whitney Owen IncubationIncubation performed.NormalSumma Health Barberton CampusComment on above:Performed By: #### QNTTB #### [facility] [address] [place] [address] Dr. Whitney Owen Mitogen Value1.79 IU/mLNUniversity Hospitals [facility] Comment on above:Performed By: #### QNTTB #### [facility] [address] [place] [address] Dr. Whitney Owen Nil Value0.00 IU/mLNUniversity Hospitals Parma Medical CenterComment on above:Performed By: #### QNTTB #### [facility] [address] [place] [address] Dr. Whitney Owen TB1 Ag Value0.00 IU/mLNUniversity Hospitals Par[facility] Comment on above:Performed By: #### QNTTB #### [facility] [address] [place] [address] Dr. Whitney Owen TB2 Ag Value0.00 IU/mLNUniversity Hospitals [facility] Comment on above:Performed By: #### QNTTB #### [facility] [address] [place] [address] Dr. Whitney Owen-TB Gold PlusNegativeNormalNegativeSumma Health Barberton CampusComment on above:Result Comment: No response to M tuberculosis antigens detected. Infection with M tuberculosis is unlikely, but high risk individuals should be considered for additional testing (ATS/IDSA/CDC Clinical Practice Guidelines, 2017). The reference range is an Antigen minus Nil result of <0.35 IU/mL. Chemiluminescence immunoassay methodologyPerformed By: #### QNTTB #### [facility] [address] [place] [address] Dr. Whitney Hopper EIA W/REFLEX 5 BIOMARKERSon [id number] DirectNegative NormalNegativeSumma Health Barberton CampusComment on above:Performed By: #### ANARF #### [facility] [address] [place] [address] Dr. Whitney EllerOTENSION-CONVERTING ENZYME (CORINA)on [id number] U/LNormal 14-82[facility] CampusComment on above:Performed By: #### BMP, MG, PHOS, TSH #### [facility] [address] [place] [address] Dr. Whitney Fonseca NEUTROPHIL CYTOPLASMIC AB (ANCA) PRon [id number]-MPO Antibodies<0.9Meiebe7.0-0.9[facility] CampusComsturgis hospital on above:Result Comment: Performed at: BNPerformed By: #### QNTTB #### [facility] [address] [place] [address] Dr. Whitney Fonseca-PR3 Antibodies<0.1Aulezr3.0-0.9[facility] CampusComsturgis hospital on above:Result Comment: Performed at: BNPerformed By: #### QNTTB #### [facility] [address] [place] [address] Dr. Whitney ShirleyAtypical pANCA<1:20NormalNeg:<1:20ThBluffton HospitalComment on above:Result Comment: The atypical pANCA pattern has been observed in a significant percentage of patients with ulcerative colitis, primary sclerosing cholangitis and autoimmune hepatitis. Performed at: CBPerformed By: #### QNTTB #### [facility] [address] [place] [address] Dr. Whitney ShirleyCytoplasmic (C-ANCA)1:20Critically highNeg:<1:20ThBluffton HospitalComsturgis hospital on above:Result Comment: Performed at: CBPerformed By: #### QNTTB #### [facility] [address] [place] [address] Dr. Whitney ShirleyPerinuclear (P-ANCA)<1:20NormalNeg:<1:20[facility] Comment on above:Result Comment: The presence of positive fluorescence exhibiting P-ANCA or C-ANCA patterns alone is not specific for the diagnosis of Ginna's Granulomatosis (WG) or microscopic polyangiitis. Decisions about treatment should not be based solely on ANCA IFA results. The [employer] ANCA [employer] Consensus recommends follow up testing of positive sera with both OH-3 and MPO-ANCA enzyme immunoassays. As many as 5% serum samples are positive only by EIA. Ref. AM J Clin Pathol 1999;111:507-513. Performed at: CBPerformed By: #### QNTTB #### [facility] [address] [place] [address] Dr. Whitney ShirleyANTISCLERODERMA ABon 29-90-8643Jcrpttijxfjtpgy-70 Antibodies<0.2 Normal0.0-0.9The [facility] HospitalComment on above:Performed By: #### BMP, MG, PHOS, TSH #### [facility] [address] [place] [address] Dr. Whitney Vasquez-REACTIVE PROTEINS (HS)on 77-37-2836N-Reactive Protein, Cardiac 17.90 mg/LCritically high0.00-3.00The [facility] HospitalComment on above:Result Comment: Relative Risk for Future Cardiovascular Event Low <1.00 Average 1.00 - 3.00 High >3.00Performed By: #### BMP, MG, PHOS, TSH #### [facility] [address] [place] [address] Dr. Whitney ShirleyCYCLIC CITRULLINATED PEPTIDE AB (CCP)on [id number] Antibodies IgG/IgA7 unitsNormal0-19The [facility] Hospitalment on above:Result Comment: Negative <20 Weak positive 20 - 39 Moderate positive 40 - 59 Strong positive >59Performed By: #### BMP, MG, PHOS, TSH #### [facility] [address] [place] [address] Dr. Whitney ShirleyRHEUMATOID FACTORon [id number] Latex Turbid.<10.0Normal<14.0The [facility] Hospitalment on above:Performed By: #### BMP, MG, PHOS, TSH #### [facility] [address] [place] [address] Dr. Whitney ShirleyCBC AUTO DIFFon [id number] #0.0 103/ulNormal0.0-0.1The [facility] HospitalComment on above:Performed By: #### QNTTB #### [facility] [address] [place], [place] [id number] Dr. Whitney ShirleyBasophils/100 WBC (Bld)0.4 %Normal0.2-2.0The [facility] Comment on above:Performed By: #### QNTTB #### [facility] [address] [place] [address] Dr. Whitney Calle #0.2 103/ulNormal0.0-0.7The [facility] HospitalComment on above: Performed By: #### QNTTB #### [facility] [address] [place] [address] Dr. Whitney Ramirezosinophils/100 WBC (Bld)1.6 %Normal0.9-7.0The [facility] Comment on above:Performed By: #### QNTTB #### [facility] [address] [place] [address] Dr. Whitney Ramirezrythrocyte distribution width (RBC) [Ratio]14.0 %Filigf59.0-15.[address] [facility] HospitalComment on above:Performed By: #### QNTTB #### [facility] [address] [place] [address] Dr. Whitney ShirleyHematocrit (Bld) [Volume fraction]35.5 %Critically low36.0-48.[address] [facility] HospitalComment on above:Performed By: #### QNTTB #### [facility] [address] [place] [address] Dr. Whitney ShirleyHemoglobin (Bld) [Mass/Vol]11.3 g/dLCritically low12.0-16.0The [facility] HospitalComment on above:Performed By: #### QNTTB #### [facility] [address] [place] [address] Dr. Whitney Fowler #0.03 10e3/ulNormal0.00-0.03The [facility] HospitalComment on above:Performed By: #### QNTTB #### [facility] [address] [place] [address] Dr. Whitney ShirleyIG %0.3 %Normal0.0-0.5The [facility] HospitalComment on above: Performed By: #### QNTTB #### [facility] [address] [place] [address] Dr. Whitney Morris #1.3 103/ulNormal1.2-3.8The [facility] HospitalComment on above:Performed By: #### QNTTB #### [facility] [address] [place] [address] Dr. Whitney Linhocytes/100 WBC (Bld)12.1 %Critically low20.5-60.0The [facility] HospitalComment on above:Performed By: #### QNTTB #### [facility] [address] [place] [address] Dr. Whitney Deluna DIFF REQNONormalThe [facility] HospitalComment on above: Performed By: #### QNTTB #### [facility] [address] [place] [address] Dr. Whitney Jones (RBC) [Entitic mass]29.9 gyWheubj84.7-34.0The [facility] HospitalComment on above:Performed By: #### QNTTB #### [facility] [address] [place] [address] Dr. Whitney Mojica (RBC) [Mass/Vol]31.8 g/uPEuvetc48.9-35.2The [facility] HospitalComment on above:Performed By: #### QNTTB #### [facility] [address] [place] [address] Dr. Whitney Marti (RBC) [Entitic vol]93.9 yCFvyvjk20.0-99.0The [facility] HospitalComment on above:Performed By: #### QNTTB #### [facility] [address] [place] [address] Dr. Whitney Avila #0.8 103/ulNormal0.3-0.8The [facility] HospitalComsturgis hospital on above:Performed By: #### QNTTB #### [facility] [address] [place] [address] Dr. Whitney Benítezocytes/100 WBC (Bld)7.4 %Normal1.7-12.0The [facility] Comment on above:Performed By: #### QNTTB #### [facility] [address] [place] [address] Dr. Whitney Morgan #8.5 103/ulCritically high1.4-6.5The [facility] Comment on above:Performed By: #### QNTTB #### [facility] [address] [place] [address] Dr. Whitney Gutierrezutrophils/100 WBC (Bld)78.2 %Critically high43.0-75.0The [facility] HospitalComment on above:Performed By: #### QNTTB #### [facility] [address] [place] [address] Dr. Whitney ShirleyPlatelet mean volume (Bld) [Entitic vol]10.1 fLNormal9.5-13.5The [facility] HospitalComment on above:Performed By: #### QNTTB #### [facility] [address] [place] [address] Dr. Whitney ShirleyPLT396 103/zcVkdghb907-289Vcv [facility] HospitalComment on above: Performed By: #### QNTTB #### [facility] [address] [place] [address] Dr. Whitney ShirleyRBC3.78 106/ulCritically low4.20-5.40The [facility] HospitalComment on above:Performed By: #### QNTTB #### [facility] [address] [place] [address] Dr. Whitney ShirleyWBC10.9 103/ulNormal4.0-11.0The [facility] HospitalComment on above:Performed By: #### QNTTB #### [facility] [address] [place] [address] Dr. Whitney ShirleySED RATE WESTERGRENon [id number] TNLD332 mm/hrCritically high <=30The [facility] HospitalComment on above:Performed By: #### QNTTB #### [facility] [address] [place] [address] Dr. Whitney Abreu URINEon [id number] URINEIsolate 1 Escherichia coli >100,000 cfu/mL of ORGANISM 1 Escherichia coli ANTIBIOTIC M.I.C RX STATUS Ampicillin 8 S F Ampicillin/Sulbactam <=2 S F Piperacillin/Tazobactam <=4 S F Cefazolin <=4 S F Ceftazidime <=1 S F Ceftriaxone <=1 S F Ertapenem <=0.5 S F Imipenem <=0.25 S F Amikacin <=2 S F Gentamicin <=1 S F Tobramycin <=1 S F Ciprofloxacin <=0.25 S F Levofloxacin <=0.12 S F Nitrofurantoin <=16 S F Trimethoprim/Sulfamethoxazole <=[address] [facility] [address] [facility] HospitalComment on above:Performed By: #### HISTGAL #### [facility] [address] [place] [address] Dr. Whitney Stringer AUTO DIFFon [id number] #0.0 103/ulNormal0.0-0.1The [facility] HospitalComment on above:Performed By: #### BMP, MG, PHOS, TSH #### [facility] [address] [place] [address] Dr. Whitney Branhamsophils/100 WBC (Bld)0.3 %Normal0.2-2.0The [facility] Comment on above:Performed By: #### BMP, MG, PHOS, TSH #### [facility] [address] [place] [address] Dr. Whitney Calle #0.0 103/ulNormal0.0-0.7The [facility] HospitalComment on above: Performed By: #### BMP, MG, PHOS, TSH #### [facility] [address] [place] [address] Dr. Whitney Ramirezosinophils/100 WBC (Bld)0.2 %Critically low0.9-7.0The [facility] HospitalComment on above:Performed By: #### BMP, MG, PHOS, TSH #### [facility] [address] [place] [address] Dr. Whitney Ramirezrythrocyte distribution width (RBC) [Ratio]13.5 %Smptwx95.0-15.[address] [facility] HospitalComment on above:Performed By: #### BMP, MG, PHOS, TSH #### [facility] [address] [place] [address] Dr. Whitney ShirleyHematocrit (Bld) [Volume fraction]40.3 %Nlsnqv74.0-48.0The [facility] HospitalComment on above:Performed By: #### BMP, MG, PHOS, TSH #### [facility] [address] [place] [address] Dr. Whitney ShirleyHemoglobin (Bld) [Mass/Vol]13.2 g/tGPhbyez99.0-16.0The [facility] HospitalComment on above:Performed By: #### BMP, MG, PHOS, TSH #### [facility] [address] [place] [address] Dr. Whitney Fowler #0.06 10e3/ulCritically high0.00-0.03The [facility] Comment on above:Performed By: #### BMP, MG, PHOS, TSH #### [facility] [address] [place] [address] Dr. Whitney Fowler %0.4 %Normal0.0-0.5The [facility] HospitalComment on above: Performed By: #### BMP, MG, PHOS, TSH #### [facility] [address] [place] [address] Dr. Whitney Morris #1.9 103/ulNormal1.2-3.8The [facility] HospitalComment on above:Performed By: #### BMP, MG, PHOS, TSH #### [facility] [address] [place] [address] Dr. Whitney Buckmphocytes/100 WBC (Bld)14.1 %Critically low20.5-60.0The [facility] HospitalComment on above:Performed By: #### BMP, MG, PHOS, TSH #### [facility] [address] [place] [address] Dr. Whitney Deluna DIFF REQNONormalThe [facility] HospitalComment on above: Performed By: #### BMP, MG, PHOS, TSH #### [facility] [address] [place] [address] Dr. Whitney ShirleyAL[facility] (RBC) [Entitic mass]29.8 epXzlxyv50.7-34.0The [facility] HospitalComment on above:Performed By: #### BMP, MG, PHOS, TSH #### [facility] [address] [place] [address] Dr. Whitney Mojica (RBC) [Mass/Vol]32.8 g/wLQlmrim66.9-35.2The [facility] HospitalComment on above:Performed By: #### BMP, MG, PHOS, TSH #### [facility] [address] [place] [address] Dr. Whitney Mojica (RBC) [Entitic vol]91.0 lCSkducg76.0-99.0The [facility] HospitalComment on above:Performed By: #### BMP, MG, PHOS, TSH #### [facility] [address] [place] [address] Dr. Whitney Avila #1.0 103/ulCritically high0.3-0.8[facility] Comment on above:Performed By: #### BMP, MG, PHOS, TSH #### [facility] [address] [place] [address] Dr. Whitney Benítezocytes/100 WBC (Bld)7.4 %Normal1.7-12.0[facility] Comment on above:Performed By: #### BMP, MG, PHOS, TSH #### [facility] [address] [place] [address] Dr. Whitney Morgan #10.4 103/ulCritically high1.4-6.5Th[facility] Comment on above:Performed By: #### BMP, MG, PHOS, TSH #### [facility] [address] [place], [place] [id number] Dr. Whitney Friedmanophils/100 WBC (Bld)77.6 %Critically high43.0-75.0The [facility] HospitalComment on above:Performed By: #### BMP, MG, PHOS, TSH #### [facility] [address] [place] [address] Dr. Whitney Judge mean volume (Bld) [Entitic vol]10.2 fLNormal9.5-13.5The [facility] HospitalComment on above:Performed By: #### BMP, MG, PHOS, TSH #### [facility] [address] [place] [address] Dr. Whitney ShirleyPLT483 103/ulCritically yrvy622-923Xsg [facility] HospitalComment on above:Performed By: #### BMP, MG, PHOS, TSH #### [facility] [address] [place] [address] Dr. Whitney ShirleyRBC4.43 106/ulNormal4.20-5.40The [facility] HospitalComment on above:Performed By: #### BMP, MG, PHOS, TSH #### [facility] [address] [place] [address] Dr. Whitney ShirleyWBC13.4 103/ulCritically high4.0-11.0The [facility]ment on above:Performed By: #### BMP, MG, PHOS, TSH #### [facility] [address] [place] [address] Dr. Olson ChangERobert URINE PROFILEon 35-59-4254Vqngdujdc Ql (U)NegativeNormal NEGATIVESumma Health Barberton CampusComment on above:Performed By: #### QNTTB #### [facility] [address] [place] [address] Dr. Whitney Frias (U)SL CLOUDYAbnormalCLEARThe [facility] HospitalComment on above:Performed By: #### QNTTB #### [facility] [address] [place] [address] Dr. Whitney Navarro (U)LT. YELLOWNormalYELLOWThe [facility] HospitalComment on above:Performed By: #### QNTTB #### [facility] [address] [address] [address] Whitney Colvin micrscopic examination will be performed if indicated. NormalSumma Health Barberton CampusComment on above:Performed By: #### QNTTB #### [facility] [address] [place] [address] Dr. Whitney ShirleyGlucose Ql (U)NegativeNormalNEGATIVESumma Health Barberton CampusComment on above:Performed By: #### QNTTB #### [facility] [address] [place] [address] Dr. Whitney ShirleyHemoglobin Ql (U)NegativeNormalNEGATIVEHenry County Hospital on above:Performed By: #### QNTTB #### [facility] [address] [place] [address] Dr. Whitney ShirleyKetones Ql (U)NegativeNormalNEGATIVESumma Health Barber[facility] CampusComment on above:Performed By: #### QNTTB #### [facility] [address] [place] [address] Dr. Whitney ShirleyLEUKOCYTESSMALLAbnormalNEGATIVESumma Health [facility] CampusComsturgis hospital on above:Performed By: #### QNTTB #### [facility] [address] [place] [address] Dr. Whitney ShirleyNitrite Ql (U)NegativeNormalNEGATIVESumma Health Barber[facility] CampusComment on above:Performed By: #### QNTTB #### [facility] [address] [place] [address] Dr. Whitney ShirleypH (U)5.5 [pH]Normal5-9[facility] CampusComment on above: Performed By: #### QNTTB #### [facility] [address] [place] [address] Dr. Whitney ShirleySPEC GRAVITY1.473Awajev8.005-<=1.025[facility] CampusComment on above:Performed By: #### QNTTB #### [facility] [address] [place] [address] Dr. Whitney Fuentes PROTEINNegativeNormalNEGATIVE/ TRACEThe [facility] Comment on above:Performed By: #### QNTTB #### [facility] [address] [place] [address] Dr. Whitney Rizo MICRO INDINDICATEDNormalThe [facility] HospitalComment on above: Performed By: #### QNTTB #### [facility] [address] [place] [address] Dr. Whitney Bangbilino Qn (U)0.2 {Vincent'U}/dLNormal0.2 - 1.0The [facility] HospitalComment on above:Performed By: #### QNTTB #### [facility] [address] [place] [address] Dr. Whitney Jaramillo 14(COMP METB)on 85-95-7443Euaevjl [Mass/Vol]2.9 g/dL Critically low3.4-5.0The [facility] HospitalComment on above:Performed By: #### HISTGAL #### [facility] [address] [place] [address] Dr. Whitney ShirleyAlbumin/Globulin [Mass ratio]0.5 {ratio}NormalThe [facility] HospitalComment on above:Performed By: #### HISTGAL #### [facility] [address] [place] [address] Dr. Whitney Cordero [Catalytic activity/Vol]98 U/ILzyjzg84-593Zzf [facility] HospitalComment on above:Performed By: #### HISTGAL #### [facility] [address] [place] [address] Dr. Whitney Villanueva [Catalytic activity/Vol]17 U/DIglpmj12-16Qne [facility] HospitalComment on above:Performed By: #### HISTGAL #### [facility] [address] [place] [address] Dr. Whitney Quan gap [Moles/Vol]14.0 mmol/LNormalThe [facility] Comment on above:Performed By: #### HISTGAL #### [facility] [address] [place] [address] Dr. Yilan ChangAST [Catalytic activity/Vol]16 U/SRoxufc88-46Ixi [facility] HospitalComment on above:Performed By: #### HISTGAL #### [facility] [address] [place] [address] Dr. Whitney ShirleyBilirubin [Mass/Vol]0.3 mg/dLNormal0.2-1.0The [facility] Comment on above:Performed By: #### HISTGAL #### [facility] [address] [place] [address] Dr. Whitney ShirleyCalcium [Mass/Vol]9.7 mg/dLNormal8.5-10.1The [facility] Comment on above:Performed By: #### HISTGAL #### [facility] [address] [place] [address] Dr. Whitney ShirleyChloride [Moles/Vol]95 mmol/LCritically wpf72-889Eyn [facility] HospitalComment on above:Performed By: #### HISTGAL #### [facility] [address] [place] [address] Dr. Whitney ShirleyCO2 [Moles/Vol]27.2 mmol/IDzqghd71.0-32.0The [facility] Comment on above:Performed By: #### HISTGAL #### [facility] [address] [place] [address] Dr. Whitney ShirleyCreatinine [Mass/Vol]0.68 mg/dLNormal0.55-1.02The [facility] HospitalComment on above:Performed By: #### HISTGAL #### [facility] [address] [place] [address] Dr. Whitney RamirezGFR-AF LATVIAN>60Normal>=60The [facility] HospitalComment on above:Performed By: #### HISTGAL #### [facility] [address] [place] [address] Dr. Whitney RamirezGFR-NON AF LATVIAN>60Normal>=60The [facility] HospitalComment on above:Performed By: #### HISTGAL #### [facility] [address] [place] [address] Dr. Whitney ShirleyGlobulin (S) [Mass/Vol]5.9 g/dLNoLouis Stokes Cleveland VA Medical CenterComment on above:Performed By: #### HISTGAL #### [facility] [address] [place] [address] Dr. Whitney ShirleyGlucose [Mass/Vol]171 mg/dLCritically qxbo39-859Unm [facility] HospitalComment on above:Performed By: #### HISTGAL #### [facility] [address] [place] [address] Dr. Whitney ShirleyPotassium [Moles/Vol]4.2 mmol/LNormal3.5-5.1The [facility] Comment on above:Performed By: #### HISTGAL #### [facility] [address] [place] [address] Dr. Whitney SihrleyProtein [Mass/Vol]8.8 g/dLCritically high6.4-8.2The [facility] HospitalComment on above:Performed By: #### HISTGAL #### [facility] [address] [place] [address] Dr. Whitney ShirleySodium [Moles/Vol]132 mmol/LCritically alj414-904Jgx [facility] HospitalComment on above:Performed By: #### HISTGAL #### [facility] [address] [place] [address] Dr. Whitney ShirleyUrea nitrogen [Mass/Vol]24.0 mg/dLCritically high7.0-18.0The [facility] HospitalComment on above:Performed By: #### HISTGAL #### [facility] [address] [place] [address] Dr. Whitney ShirleyUrea nitrogen/Creatinine [Mass ratio]35.3 mg/mgNoLouis Stokes Cleveland VA Medical CenterComment on above:Performed By: #### HISTGAL #### [facility] [address] [place] [address] Dr. Whitney Fowler MICROSCOPIC ONLYon [id number]UANQ SEENThe [facility] HospitalComment on above:Performed By: #### QNTTB #### [facility] [address] [place] [address] Dr. Whitney Shook identified Cx Nom (U)INDICATEDNoalThBluffton HospitalComment on above:Performed By: #### QNTTB #### [facility] [address] [place] [address] Dr. Whitney Muller SEENNormalNONE SEENSumma Health [facility] CampusComsturgis hospital on above:Performed By: #### QNTTB #### [facility] [address] [place] [address] Dr. Whitney Adan LM Nom (Urine sed)SEENAbnormalNONE SEENSumma Health [facility] CampusComsturgis hospital on above:Performed By: #### QNTTB #### [facility] [address] [place] [address] Dr. Whitney Rivasthelial cells LM Ql (Urine sed)RARENormalNONE SEEN /RAREThe [facility] HospitalComsturgis hospital on above:Performed By: #### QNTTB #### [facility] [address] [place] [address] Dr. Whitney FragosoUSKRYSTYNA SEENKasbeerNONE SEENSumma Health [facility] CampusComsturgis hospital on above:Performed By: #### QNTTB #### [facility] [address] [place] [address] Dr. Whitney Bower SEENAbrmal0-2[facility] CampusComsturgis hospital on above: Performed By: #### QNTTB #### [facility] [address] [place] [address] Dr. Whitney NicholsonBC2-5AbnormalNONE SEENOhio State University [facility] on above: Performed By: #### QNTTB #### [facility] [address] [place] [address] Dr. Whitney ShirleyXR CHEST 1 Von [id number] CHEST 1 VEXAMINATION: XR CHEST 1 V HISTORY: COUGH , shortness of breath, weakness COMPARISON: XR chest 01/18/2023 FINDINGS: LUNGS: Underexpanded lungs with stable mild peripheral opacities and coarsening of interstitial markings suggestive of fibrosis. VASCULATURE: No increased pulmonary vasculature. PLEURA: No pneumothorax, effusion, or pleural thickening. CARDIAC: No cardiomegaly or cardiac silhouette abnormality. MEDIASTINUM: No visible mass or adenopathy. BONES: No fracture or visible bone lesion. OTHER: Negative. IMPRESSION: 1. Stable chest with suspected pulmonary fibrosis. No convincing acute infiltrates. Electronically authenticated by: YUKI FITZGERALD Date: 2023-03-23 17:14[facility] HospitalCHEMISTRYOrdered By: SYSTEM SYSTEM on 50-49-5998Mysnd gap [Moles/Vol]16 mmol/LNormal6 - 16 mEq/LFTMC RemisolCalcium [Mass/Vol]9.3 mg/dL Normal8.9 - 11.1 mg/dLFT RemisolChloride [Moles/Vol]95 mmol/JKkf953 - 111 mmol/LFTMC RemisolCO2 [Moles/Vol]21 mmol/ACvsrlg57 - 31 mmol/LFTMC Remisol Creatinine [Mass/Vol]0.9 mg/dLNormal0.5 - 1.3 mg/dLFT RemisolGFR/1.73 sq M.predicted among blacks MDRD (S/P/Bld) [Vol rate/Area]mL/min/1.73 b4Cfpcab >=59mL/min/1.73 m2[facility] Chem SGFR/1.73 sq M.predicted among non-blacks MDRD (S/P/Bld) [Vol rate/Area]60 mL/min/1.73 y5Rccoul>=59mL/min/1.73 m2[facility] Chem S Glucose [Mass/Vol]121 mg/oHBsxtfh53 - 199 mg/dLFT RemisolPotassium [Moles/Vol] 4.9 mmol/LNormal3.5 - 5.3 mmol/LFTMC RemisolComment on above:Result Comment: 'Specimen hemolyzed. Result may be affected. Redraw is recommended.'Sodium [Moles/Vol]127 mmol/LDjo528 - 145 mmol/LFTMC RemisolUrea nitrogen [Mass/Vol]32 mg/dLHigh5 - 21 mg/dLFTMC RemisolUrea nitrogen/Creatinine [Mass ratio]36 mg/mg High10 - 20FTMC RemisolRESPIRATORY PANEL PLUSon 83-96-1991JxziwuwexpLit detected NormalNOT DETECTEDThe [facility] HospitalComment on above:Performed By: #### BMP, MG, PHOS, TSH #### [facility] [address] [address] [address] Whitney Johnson ParapertusisNot detectedNormalNOT DETECTEDThe [facility] HospitalComment on above:Performed By: #### BMP, MG, PHOS, TSH #### [facility] [address] [address] [address] Whitney Johnson PertussisNot detectedNormalNOT DETECTEDThe [facility] Comment on above:Performed By: #### BMP, MG, PHOS, TSH #### [facility] [address] [address] [address] Whitney ShirleyChlamydia PneumoniaeNot detectedNormalNOT DETECTEDThe [facility] HospitalComment on above:Performed By: #### BMP, MG, PHOS, TSH #### [facility] [address] [address] [address] Whitney ShirleyCoronavirus 229ENot detectedNormalNOT DETECTEDThe [facility] HospitalComsturgis hospital on above:Performed By: #### BMP, MG, PHOS, TSH #### [facility] [address] [address] [address] Whitney ShirleyCoronavirus XLV0Dpg detectedNormalNOT DETECTEDThe [facility] HospitalComment on above:Performed By: #### BMP, MG, PHOS, TSH #### [facility] [address] [address] [address] Whitney ShirleyCoronavirus PI59Uxv detectedNormalNOT DETECTEDThe [facility] HospitalComment on above:Performed By: #### BMP, MG, PHOS, TSH #### [facility] [address] [address] [address] Whitney ShirleyCoronavirus OB15Ckl detectedNormalNOT DETECTEDThe [facility] HospitalComment on above:Performed By: #### BMP, MG, PHOS, TSH #### [facility] [address] [address] [address] Whitney ShirleyInfluenza A H1Not detectedNormalNOT DETECTEDThe [facility] Comment on above:Performed By: #### BMP, MG, PHOS, TSH #### [facility] [address] [address] [address] Whitney Luke H1 2009Not detectedNormalNOT DETECTEDThe [facility] HospitalComment on above:Performed By: #### BMP, MG, PHOS, TSH #### [facility] [address] [address] [address] Whitney Busby A H3Not detectedNormalNOT DETECTEDThe [facility] Comment on above:Performed By: #### BMP, MG, PHOS, TSH #### [facility] [address] [address] [address] Whitney Busby BNot detectedNormalNOT DETECTEDThe [facility] Comment on above:Performed By: #### BMP, MG, PHOS, TSH #### [facility] [address] [address] [address] Whitney RiveraneumovirusNot detectedNormalNOT DETECTEDThe [facility] HospitalComment on above:Performed By: #### BMP, MG, PHOS, TSH #### [facility] [address] [address] [address] Whitney Matson. PneumoniaeNot detectedNormalNOT DETECTEDThe [facility] HospitalComment on above:Performed By: #### BMP, MG, PHOS, TSH #### [facility] [address] [address] [address] Whitney Rosenthal 1Not detectedNormalNOT DETECTEDThe [facility] HospitalComment on above:Performed By: #### BMP, MG, PHOS, TSH #### [facility] [address] [address] [address] Whitney Rosenthal 2Not detectedNormalNOT DETECTEDThe [facility] HospitalComment on above:Performed By: #### BMP, MG, PHOS, TSH #### [facility] [address] [address] [address] Yilan ChangParainfluenza 3Not detectedNormalNOT DETECTEDThe [facility] Hospitalment on above:Performed By: #### BMP, MG, PHOS, TSH #### [facility] [address] [address] [address] Whitney Nicholsonainfluenza 4Not detectedNormalNOT DETECTEDThe [facility] HospitalComment on above:Performed By: #### BMP, MG, PHOS, TSH #### [facility] [address] [address] [address] Whitney ShirleyRhino/EnterovirusNot detectedNormalNOT DETECTEDThe [facility] Hospitalment on above:Performed By: #### BMP, MG, PHOS, TSH #### [facility] [address] [address] [address] Whitney Gill2 Header 1RESPIRATORY PANEL: [facility]IRUSESLutheran Hospital on above:Performed By: #### BMP, MG, PHOS, TSH #### [facility] [address] [place] [address] Dr. Whitney Morris Header 2RESPIRATORY PANEL: BACTERIAAdams County HospitalComment on above:Performed By: #### BMP, MG, PHOS, TSH #### [facility] [address] [address] [address] Whitney BrownVNot detectedNormalNOT DETECTEDThe [facility] HospitalComsturgis hospital on above:Performed By: #### BMP, MG, PHOS, TSH #### [facility] [address] [address] [address] Whitney Brandon-CoV-2 (COVID-19) RNA JANET+probe Ql (Unsp spec)Not detected NormalNOT DETECTEDThe [facility] HospitalComment on above:Performed By: #### BMP, MG, PHOS, TSH #### [facility] [address] [place] [address] Dr. Whitney ShirleyMG MAMM SCREEN 3D ISAMAR CADon [id number] MAMM SCREEN 3D ISAMAR CAD Patient: MICHELLE NASH Exam Date: 03/11/2023 : 1940 Gender:F Ordering : [facility] Admission #: [id number] Family : Order #: [id number] CLICK HERE TO VIEW EXAM RADIOLOGY REPORT PROCEDURE: MAMMOGRAM SCREENING 3D BILATERAL CAD COMPARISON: MG MAMM SCREEN 3D ISAMAR CAD, 03/03/2022. MAMMO POST BIOPSY LEFT, 04/20/2022. INDICATIONS: Screening mammography Calculator Name NCI Breast Cancer Risk Assessment Tool 5 Year Breast Cancer Risk 1.30% Lifetime Breast Cancer Risk 1.60% Personal Breast Cancer No Personal Ovarian Cancer No Treatments None Family Cancers Mother with colon cancer at age 80; Father with lung cancer at age 60. LOCATION: [facility] BREAST COMPOSITION: Scattered areas fibroglandular density. FINDINGS: DIAGNOSTIC CATEGORY 2--BENIGN FINDING. NO CHANGE FROM COMPARISON. Scattered benign-appearing nodules are present. Scattered benign-appearing calcifications are present. Scattered benign-appearing lymph nodes are present. RIGHT BREAST: No significant suspicious finding. LEFT BREAST: Stable retroareolar density/mass with micro clip biopsy marker. RECOMMENDATIONS: ROUTINE MAMMOGRAM AND CLINICAL EVALUATION IN 12 MONTHS. PLEASE NOTE: A NORMAL MAMMOGRAM DOES NOT EXCLUDE THE POSSIBILITY OF BREAST CANCER. A CLINICALLY SUSPICIOUS PALPABLE LUMP SHOULD BE BIOPSIED. Dictated by: Bev Cortez MD on 03/15/2023 at 09:47 Approved by: Bev Cortez MD on 03/15/2023 at 09:49[facility] CHEMISTRYOrdered By: Gagan Shanks on [id number] (Bld) [Mass fraction] 9.7 %High<=5.9%[facility] ChemAutoSSCHEMISTRYOrdered By: SYSTEM SYSTEM on 03-01-2023 25-hydroxyvitamin D3 [Mass/Vol]55.5 ng/qLQsucuw34.0 - 100.0 ng/mLFT Remisol Albumin [Mass/Vol]3.1 g/dLLow3.3 - 5.0 gm/dLFT RemisolAlbumin/Globulin [Mass ratio]0.6 {ratio}Low1.1 - 2.2[facility] RemisolALP [Catalytic activity/Vol]85 [iU]/d Ubmmfr69 - 98 Int._Unit/LFTMC RemisolALT No additional P-5'-P [Catalytic activity/Vol]12 [iU]/dNormal6 - 46 Int._Unit/LFTMC RemisolAnion gap [Moles/Vol] 11 mmol/LNormal6 - 16 mEq/LFTMC RemisolAST [Catalytic activity/Vol]19 [iU]/d Normal5 - 43 Int._Unit/LFTMC RemisolBilirubin [Mass/Vol]0.3 mg/dLNormal0.0 - 1.1 mg/dLFTMC RemisolCalcium [Mass/Vol]9.1 mg/dLNormal8.9 - 11.1 mg/dLFTMC Remisol Chloride [Moles/Vol]97 mmol/OZvp804 - 111 mmol/LFTMC RemisolCholesterol [Mass/Vol]109 mg/cFUbm887 - 200 mg/dLFTMC RemisolCholesterol in HDL [Mass/Vol]34 mg/dLInvalid Interpretation CodeFTMC RemisolCholesterol in LDL [Mass/Vol]56 mg/dLNormal<=129mg/dLFTMC RemisolCholesterol in VLDL [Mass/Vol]16 mg/dLNormal7 - 40 mg/dLFTMC RemisolCO2 [Moles/Vol]28 mmol/XUenyov97 - 31 mmol/LFTMC Remisol Creatinine [Mass/Vol]0.6 mg/dLNormal0.5 - 1.3 mg/dLFTMC RemisolGFR/1.73 sq M.predicted among blacks MDRD (S/P/Bld) [Vol rate/Area]mL/min/1.73 i4Mfqure >=59mL/min/1.73 m2FT Chem SGFR/1.73 sq M.predicted among non-blacks MDRD (S/P/Bld) [Vol rate/Area]mL/min/1.73 u7Oheyei>=59mL/min/1.73 m2FT Chem S Globulin (S) [Mass/Vol]4.8 g/dLHigh1.4 - 4.0 gm/dLFTMC RemisolGlucose [Mass/Vol] 155 mg/sPTwwxvm02 - 199 mg/dLFTMC RemisolPotassium [Moles/Vol]4.4 mmol/LNormal 3.5 - 5.3 mmol/LFTMC RemisolProtein [Mass/Vol]7.9 g/dLHigh6.0 - 7.8 gm/dLFTMC RemisolSodium [Moles/Vol]132 mmol/MYcp952 - 145 mmol/LFTMC RemisolTriglyceride [Mass/Vol]81 mg/dLNormal<=149mg/dLFTMC RemisolTSH Qn4.74 m[IU]/LNormal0.34 - 5.60 mcIU/mLFTMC RemisolUrea nitrogen [Mass/Vol]20 mg/dLNormal5 - 21 mg/dLFTMC RemisolUrea nitrogen/Creatinine [Mass ratio]33 mg/ktPwjl39 - 20[facility] Remisol HEMATOLOGYOrdered By: Daegis SYSTEM on 25-71-5372Uttfekdrt/100 WBC (Bld)0.6 % Normal0.0 - 2.0 %[facility] HemeAutoSSBasophils/Leukocytes Auto (Bld) [Pure # fraction]0.1 E9/LNormal0.0 - 0.2 E9/LFTMC HemeAutoSSEosinophils/100 WBC (Bld)3.9 %Normal0.0 - 8.0 %[facility] HemeAutoSSEosinophils/Leukocytes Auto (Bld) [Pure # fraction]0.3 E9/LNormal0.0 - 0.5 E9/LFTMC HemeAutoSSLymphocytes/100 WBC (Bld) 18.1 %Nqztad30.0 - 50.0 %[facility] HemeAutoSSLymphocytes/Leukocytes Auto (Bld) [Pure # fraction]1.4 E9/LNormal1.0 - 4.0 E9/LFTMC HemeAutoSSMonocytes/100 WBC (Bld) 10.6 %Normal4.0 - 14.0 %[facility] HemeAutoSSMonocytes/Leukocytes Auto (Bld) [Pure # fraction]0.8 E9/LNormal0.2 - 1.0 E9/LFTMC HemeAutoSSNeutrophils/100 WBC (Bld) 66.8 %Grtjjc21.0 - 75.0 %[facility] HemeAutoSSNeutrophils/Leukocytes Auto (Bld) [Pure # fraction]5.3 E9/LNormal2.0 - 7.5 E9/LFTMC HemeAutoSSHEMATOLOGYOrdered By: Samira Angelo on 66-69-7690Jmtqvhqmnqk distribution width (RBC) [Ratio]13.4 % Jblndc39.9 - 14.2 %FT HemeAutoSSHematocrit (Bld) [Volume fraction]34.4 %Normal 34.0 - 46.0 %[facility] HemeAutoSSHemoglobin (Bld) [Mass/Vol]11.2 g/dLLow12.0 - 16.0 gm/dLFT HemeAutoSSMCH (RBC) [Entitic mass]30.3 zpVkqmxo09.0 - 34.0 pgFTMC HemeAutoSSMCHC (RBC) [Mass/Vol]32.5 g/bMJjfdjl43.4 - 36.0 gm/dLFTMC HemeAutoSS MCV (RBC) [Entitic vol]93.5 jPKbsztz73.0 - 100.0 fLFT HemeAutoSSPlatelet mean volume (Bld) [Entitic vol]8.6 fLNormal6.4 - 10.8 fLFT HemeAutoSSPlatelets (Bld) [#/Vol]357.0 E9/SHcgvab244.0 - 500.0 E9/LFTMC HemeAutoSSRBC (Bld) [#/Vol] 3.7 E12/LLow4.3 - 5.9 E12/LFTMC HemeAutoSSWBC corrected for nucl RBC Auto (Bld) [#/Vol]7.9 E9/LNormal4.0 - 11.0 E9/LFTMC HemeAutoSSXR CHEST 2 Von [id number] CHEST 2 VEXAMINATION: XR CHEST 2 V, 01/26/2023 3:05 PM EST HISTORY: Cough COMPARISON: 03/15/2022 TECHNIQUE: Chest x-ray: Two views. FINDINGS: Chronic bilateral interstitial markings likely representing scarring. No focal consolidations or large pleural effusions. Stable blunting of the left costophrenic angle. Borderline heart size. Arteriosclerosis of the thoracic aorta. Bony demineralization. Prior cement augmentation of a lower thoracic vertebral body. IMPRESSION: Chronic interstitial changes suggesting pulmonary fibrosis. No focal consolidations. Consider further evaluation with chest CT if clinically indicated. Electronically authenticated by: RIMA FIERRO Date: 2023-01-26 17:11[facility] HospitalXR SINUSES 3 VIEWS OR GREATERon [id number] SINUSES 3 VIEWS OR GREATEREXAMINATION: XR SINUSES 3 VIEWS OR GREATER HISTORY: Acute maxillary sinusitis COMPARISON: No relevant comparison available. FINDINGS: MAXILLARY: No mucosal thickening or fluid level. ETHMOID: No mucosal thickening or fluid level. FRONTAL: No mucosal thickening or fluid level. SPHENOID: No mucosal thickening or fluid level. OTHER: Negative. IMPRESSION: Clear paranasal sinuses Electronically authenticated by: BEV CORTEZ Date: 2023-01-07 07:46[facility] HospitalGLYCOHEMOGLOBIN A1Con [id number] RECOMMENDATIONSEE BELOW NormalThe [facility] HospitalComment on above:Result Comment: ADA RECOMMENDED LIMIT 4.0 - 6.0 ADA THERAPEUTIC TARGET < 7.0 ACTION SUGGESTED > 7.0Performed By: #### HISTGAL #### [facility] [address] [place] [address] Dr. Whitney ShirleyGlucose [Mass/Vol]237 mg/dLNoLouis Stokes Cleveland VA Medical CenterComment on above:Performed By: #### HISTGAL #### [facility] [address] [place] [address] Dr. Whitney ShirleyHbA1c (Bld) [Mass fraction]9.9 %Critically high4.5-6.2The [facility] HospitalComment on above:Performed By: #### HISTGAL #### [facility] [address] [place] [address] Dr. Whitney Stringer AUTO DIFFon [id number] #0.1 103/ulNormal0.0-0.1The [facility] HospitalComment on above:Performed By: #### QNTTB #### [facility] [address] [address] [address] Whitney ShirleyBasophils/100 WBC (Bld)0.5 %Normal0.2-2.0The [facility] Comment on above:Performed By: #### QNTTB #### [facility] [address] [place] [address] Dr. Olson ChangEQuin #0.3 103/ulNormal0.0-0.7The [facility] HospitalComment on above: Performed By: #### QNTTB #### [facility] [address] [place] [address] Dr. Whitney Ramirezosinophils/100 WBC (Bld)3.0 %Normal0.9-7.0The [facility] Comment on above:Performed By: #### QNTTB #### [facility] [address] [place] [address] Dr. Whitney Ramirezrythrocyte distribution width (RBC) [Ratio]13.2 %Eovkry04.0-15.[address] [facility] HospitalComment on above:Performed By: #### QNTTB #### [facility] [address] [place] [address] Dr. Whitney ShirleyHematocrit (Bld) [Volume fraction]37.1 %Tifhlu34.0-48.0The [facility] HospitalComment on above:Performed By: #### QNTTB #### [facility] [address] [place] [address] Dr. Whitney ShirleyHemoglobin (Bld) [Mass/Vol]12.4 g/kEEurvzc06.0-16.0The [facility] HospitalComment on above:Performed By: #### QNTTB #### [facility] [address] [place] [address] Dr. Whitney Fowler #0.04 10e3/ulCritically high0.00-0.03The [facility] Comment on above:Performed By: #### QNTTB #### [facility] [address] [place] [address] Dr. Whitney Fowler %0.4 %Normal0.0-0.5The [facility] HospitalComment on above: Performed By: #### QNTTB #### [facility] [address] [place] [address] Dr. Whitney LinH #1.4 103/ulNormal1.2-3.8The [facility] HospitalComment on above:Performed By: #### QNTTB #### [facility] [address] [place] [address] Dr. Whitney Buckmphocytes/100 WBC (Bld)12.4 %Critically low20.5-60.0The [facility] HospitalComment on above:Performed By: #### QNTTB #### [facility] [address] [place] [address] Dr. Whitney Deluna DIFF REQNONormalThe [facility] HospitalComment on above: Performed By: #### QNTTB #### [facility] [address] [place] [address] Dr. Whitney Mojica (RBC) [Entitic mass]31.6 amMtdxyb12.7-34.0The [facility] HospitalComment on above:Performed By: #### QNTTB #### [facility] [address] [place] [address] Dr. Whitney Mojica (RBC) [Mass/Vol]33.4 g/fDQzpfmx89.9-35.2The [facility] HospitalComment on above:Performed By: #### QNTTB #### [facility] [address] [place] [address] Dr. Whitney Marti (RBC) [Entitic vol]94.6 uFMgmywr43.0-99.0The [facility] HospitalComment on above:Performed By: #### QNTTB #### [facility] [address] [place] [address] Dr. Whitney Avila #1.1 103/ulCritically high0.3-0.8ThBluffton Hospital Comment on above:Performed By: #### QNTTB #### [facility] [address] [place] [address] Dr. Whitney Benítezocytes/100 WBC (Bld)9.9 %Normal1.7-12.0[facility] Comment on above:Performed By: #### QNTTB #### [facility] [address] [place] [address] Dr. Whitney Morgan #8.1 103/ulCritically high1.4-6.5The [facility] Comment on above:Performed By: #### QNTTB #### [facility] [address] [place] [address] Dr. Whitney Gutierrezutrophils/100 WBC (Bld)73.8 %Kvuoib44.0-75.0The [facility] on above:Performed By: #### QNTTB #### [facility] [address] [place] [address] Dr. Whitney ShirleyPlatelet mean volume (Bld) [Entitic vol]10.3 fLNormal9.5-13.5The [facility] on above:Performed By: #### QNTTB #### [facility] [address] [place] [address] Dr. Whitney ShirleyPLT332 103/nbRtcofo230-798Qys [facility] on above: Performed By: #### QNTTB #### [facility] [address] [place] [address] Dr. Whitney ShirleyRBC3.92 106/ulCritically low4.20-5.40The [facility] on above:Performed By: #### QNTTB #### [facility] [address] [place] [address] Dr. Whitney ShirleyWBC11.0 103/ulNormal4.0-11.0The [facility] on above:Performed By: #### QNTTB #### [facility] [address] [place] [address] Dr. Whitney ShirleyGLYCOHEMOGLOBIN A1Con 50-83-5536IIN RECOMMENDATIONSEE BELOWNormok The [facility] HospitalComsturgis hospital on above:Result Comment: ADA RECOMMENDED LIMIT 4.0 - 6.0 ADA THERAPEUTIC TARGET < 7.0 ACTION SUGGESTED > 7.0Performed By: #### BMP, MG, PHOS, TSH #### [facility] [address] [place] [address] Dr. Whitney ShirleyGlucose [Mass/Vol]174 mg/dLNoalThMercy Health St. [facility] on above:Performed By: #### BMP, MG, PHOS, TSH #### [facility] [address] [place] [address] Dr. Whitney ShirleyHbA1c (Bld) [Mass fraction]7.7 %Critically high4.5-6.2[facility] CampusComment on above:Performed By: #### BMP, MG, PHOS, TSH #### [facility] [address] [place] [address] Dr. Whitney GrullonID PROFILEon 29-22-5180LDSI-HDL RATIO NORMSEE BELOWAdams County HospitalComment on above:Result Comment: 3.3 - 4.4 LOW RISK 4.4 - 7.1 AVERAGE RISK 7.1 - 11.0 MODERATE RISK >11.0 HIGH RISKPerformed By: #### LIPID, CMP #### [facility] [address] [place] [address] Dr. Whitney ShirleyCholesterol [Mass/Vol]142 mg/dLNormal<=200The [facility] Comment on above:Performed By: #### LIPID, CMP #### [facility] [address] [place] [address] Dr. Whitney ShirleyCholesterol in HDL [Mass/Vol]43 mg/uSKklmjv36-67BhhSumma Health Barberton CampusComment on above:Performed By: #### LIPID, CMP #### [facility] [address] [place] [address] Dr. Whitney Pintoesterol in LDL [Mass/Vol]81.8 mg/dLAdams County HospitalComment on above:Performed By: #### LIPID, CMP #### [facility] [address] [place] [address] Dr. Whitney Smith.total/Cholesterol in HDL [Mass ratio]3.3 {ratio} NormalSumma Health Barberton CampusComment on above:Performed By: #### LIPID, CMP #### [facility] [address] [place] [address] Dr. Whitney MoranL NORMAL> or = 60 mg/dl - LOW CARDIOVASCULAR RISK <40 mg/dl - HIGH CARDIOVASCULAR RISKAdams County HospitalComment on above:Performed By: #### LIPID, CMP #### [facility] [address] [place] [address] Dr. Yilan ChangLDL CALC NORMALSEE BELOWNoLouis Stokes Cleveland VA Medical CenterComment on above:Result Comment: <100 mg/dl OPTIMAL 100 - 129 mg/dl NEAR OR ABOVE OPTIMAL 130 - 159 mg/dl BORDERLINE HIGH 160 - 189 mg/dl HIGH >190 mg/dl VERY HIGH Performed By: #### LIPID, CMP #### [facility] [address] [address] [address] Whitney ShirleyTriglyceride [Mass/Vol]86 mg/dLNormal<=150The [facility] Comment on above:Performed By: #### LIPID, CMP #### [facility] [address] [address] [address] Whitney ShirleyVLDL CALC17.2 mg/dLNoLouis Stokes Cleveland VA Medical CenterComment on above: Performed By: #### LIPID, CMP #### [facility] [address] [place] [address] Dr. Whitney ShirleyPROF 14(COMP METB)on 21-21-1054Sqdbmwh [Mass/Vol]3.3 g/dL Critically low3.4-5.0The [facility] HospitalComment on above:Performed By: #### LIPID, CMP #### [facility] [address] [place] [address] Dr. Whitney ShirleyAlbumin/Globulin [Mass ratio]0.7 {ratio}NormalThe [facility] HospitalComment on above:Performed By: #### LIPID, CMP #### [facility] [address] [address] [address] Whitney Cordero [Catalytic activity/Vol]114 U/XUumipo41-803Ges [facility] HospitalComment on above:Performed By: #### LIPID, CMP #### [facility] [address] [address] [address] Whitney Villanueva [Catalytic activity/Vol]15 U/LHyihau02-45Rin [facility] HospitalComment on above:Performed By: #### LIPID, CMP #### [facility] [address] [place] [address] Dr. Whitney Quan gap [Moles/Vol]9.0 mmol/LNormalThe [facility] HospitalComment on above:Performed By: #### LIPID, CMP #### [facility] [address] [address] [address] Whitney ShirleyAST [Catalytic activity/Vol]17 U/XMcigoj78-37Jos [facility] HospitalComsturgis hospital on above:Performed By: #### LIPID, CMP #### [facility] [address] [address] [address] Whitney ShirleyBilirubin [Mass/Vol]0.4 mg/dLNormal0.2-1.0The [facility] Comment on above:Performed By: #### LIPID, CMP #### [facility] [address] [address] [address] Whitney ShirleyCalcium [Mass/Vol]9.3 mg/dLNormal8.5-10.1[facility] Comment on above:Performed By: #### LIPID, CMP #### [facility] [address] [address] [address] Whitney ShirleyChloride [Moles/Vol]97 mmol/LCritically qoq75-373Eas [facility] on above:Performed By: #### LIPID, CMP #### [facility] [address] [address] [address] Whitney ShirleyCO2 [Moles/Vol]32.0 mmol/XZcblzs12.0-32.0[facility] Comment on above:Performed By: #### LIPID, CMP #### [facility] [address] [address] [address] Whitney ShirleyCreatinine [Mass/Vol]0.73 mg/dLNormal0.55-1.02The [facility] HospitalComment on above:Performed By: #### LIPID, CMP #### [facility] [address] [place] [address] Dr. Whitney RamirezGFR-AF LATVIAN>60Normal>=60The [facility] on above:Performed By: #### LIPID, CMP #### [facility] [address] [address] [address] Whitney RamirezGFR-NON AF LATVIAN>60Normal>=60The Naty HospitalComment on above:Performed By: #### LIPID, CMP #### [facility] [address] [address] [address] Whitney ShirleyGlobulin (S) [Mass/Vol]4.9 g/dLNormFairfield Medical CenterComment on above:Performed By: #### LIPID, CMP #### [facility] [address] [place] [address] Dr. Whitney ShirleyGlucose [Mass/Vol]166 mg/dLCritically ikdt68-388Sxx [facility] HospitalComment on above:Performed By: #### LIPID, CMP #### [facility] [address] [place] [address] Dr. Whitney ShirleyPotassium [Moles/Vol]4.0 mmol/LNormal3.5-5.1The [facility] Comment on above:Performed By: #### LIPID, CMP #### [facility] [address] [place] [address] Dr. Whitney ShirleyProtein [Mass/Vol]8.2 g/dLNormal6.4-8.2[facility] Comment on above:Performed By: #### LIPID, CMP #### [facility] [address] [place] [address] Dr. Whitney ShirleySodium [Moles/Vol]134 mmol/LCritically jau350-632Gss [facility] HospitalComment on above:Performed By: #### LIPID, CMP #### [facility] [address] [place] [address] Dr. Whitney ShirleyUrea nitrogen [Mass/Vol]16.0 mg/dLNormal7.0-18.0The [facility] HospitalComment on above:Performed By: #### LIPID, CMP #### [facility] [address] [place] [address] Dr. Whitney Mullins nitrogen/Creatinine [Mass ratio]21.9 mg/mgNoLouis Stokes Cleveland VA Medical CenterComment on above:Performed By: #### LIPID, CMP #### [facility] [address] [place] [address] Dr. Whitney ShirleyVITAMIN D 25 OHon 27-55-6823YNL D 25-OH40.4 ng/mLNormalSumma Health Barberton CampusComment on above:Performed By: #### QNTTB #### [facility] [address] [place] [address] Dr. Whitney Waldron [facility] CenterComment on above: Result Comment: <20 ng/mL Vit D deficient 20 - <30 ng/mL Vit D insufficient 30 - 100 ng/mL Vit D sufficient >100 ng/mL Potential ToxicityPerformed By: #### QNTTB #### [facility] [address] [place] [address] Dr. Whitney ShirleyFERRITINon 96-31-7740Kujzpzac [Mass/Vol]68.0 ng/mLNormal8.0-252.0 [facility] CampusComment on above:Performed By: #### QNTTB #### [facility] [address] [place] [address] Dr. Whitney ShirleyMAGNESIUMon 49-44-0628Ttlioimwp [Mass/Vol]1.7 mg/dLCritically low 1.8-2.4The [facility] HospitalComment on above:Performed By: #### BMP, MG, PHOS, TSH #### [facility] [address] [place] [address] Dr. Whitney ShirleyPHOSPHORUSon 23-88-1209Xpvczlobb [Mass/Vol]3.7 mg/dLNormal2.6-4.[address] [facility] HospitalComment on above:Performed By: #### BMP, MG, PHOS, TSH #### [facility] [address] [place] [address] Dr. Whitney ShirleyPROF CHEM 8 (BAS METB)on 11-37-2694Akwyf gap [Moles/Vol]11.4 mmol/LNormalSumma Health Barberton CampusComsturgis hospital on above:Performed By: #### BMP, MG, PHOS, TSH #### [facility] [address] [place] [address] Dr. Whitney ShirleyCalcium [Mass/Vol]9.3 mg/dLNormal8.5-10.1[facility] Comment on above:Performed By: #### BMP, MG, PHOS, TSH #### [facility] [address] [place] [address] Dr. Whitney ShirleyChloride [Moles/Vol]98 mmol/EEirzey58-140XlxSumma Health Barberton Campus Comment on above:Performed By: #### BMP, MG, PHOS, TSH #### [facility] [address] [place] [address] Dr. Whitney ShirleyCO2 [Moles/Vol]28.4 mmol/TUuyzyk48.0-32.0The [facility] Comment on above:Performed By: #### BMP, MG, PHOS, TSH #### [facility] [address] [place] [address] Dr. Whitney ShirleyCreatinine [Mass/Vol]0.66 mg/dLNormal0.55-1.02[facility] CampusComment on above:Performed By: #### BMP, MG, PHOS, TSH #### [facility] [address] [place] [address] Dr. Whitney RamirezGFR-AF LATVIAN>60Normal>=60The [facility] HospitalComment on above:Performed By: #### BMP, MG, PHOS, TSH #### [facility] [address] [place] [address] Dr. Whitney RamirezGFR-NON AF LATVIAN>60Normal>=60The [facility] HospitalComment on above:Performed By: #### BMP, MG, PHOS, TSH #### [facility] [address] [place] [address] Dr. Whitney ShirleyGlucose [Mass/Vol]105 mg/kEXglxsm34-201ZzoSumma Health [facility] Campus Comment on above:Performed By: #### BMP, MG, PHOS, TSH #### [facility] [address] [place] [address] Dr. Whitney ShirleyPotassium [Moles/Vol]3.8 mmol/LNormal3.5-5.1[facility] Comment on above:Performed By: #### BMP, MG, PHOS, TSH #### [facility] [address] [address] [address] Whitney Bluedium [Moles/Vol]134 mmol/LCritically ezd950-926Jxu [facility] on above:Performed By: #### BMP, MG, PHOS, TSH #### [facility] [address] [place] [address] Dr. Whitney Mullins nitrogen [Mass/Vol]20.0 mg/dLCritically high7.0-18.0The [facility] HospitalComment on above:Performed By: #### BMP, MG, PHOS, TSH #### [facility] [address] [place] [address] Dr. Whitney Mullins nitrogen/Creatinine [Mass ratio]30.3 mg/mgNormalThe [facility] HospitalComment on above:Performed By: #### BMP, MG, PHOS, TSH #### [facility] [address] [place] [address] Dr. Whitney Jenkins 30-10-4723WHV9.481 uIU/mLCritically high0.358-3.740The [facility] Hospitalment on above:Performed By: #### BMP, MG, PHOS, TSH #### [facility] [address] [place] [address] Dr. Whitney Gonzalez B12 AND FOLATEon 00-61-2607Rlmbxwyvr (Vitamin B12) [Mass/Vol] 406.0 pg/tVUxvngc408.0-986.0The [facility] HospitalComment on above:Performed By: #### QNTTB #### [facility] [address] [place] [address] Dr. Whitney ShirleyFOLATE22.10 ng/mLNormal8.60-58.90The [facility] on above:Performed By: #### QNTTB #### [facility] [address] [place] [address] Dr. 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 -NEGATIVE FOR MALIGNANCY. 04/30/2022 faxed to Bethany Abdul NP. Verified with Leonor that report was present in office. Original Report PROCEDURE: ULTRASOUND BIOPSY VACCUUM ASSISTED LEFT WITH CLIP COMPARISON: MG MAMM SCREEN 3D ISAMAR CAD 02/19/2021. MG MAMM SCREEN 3D ISAMAR CAD, 03/03/2022. US BREAST LEFT LIMITED, 03/26/2022. INDICATIONS: Mammography abnormal. DESCRIPTION: After obtaining informed consent, a vacuum assisted ultrasound-guided biopsy was performed in the usual sterile manner The location of the biopsy was then marked as indicated below. FINDINGS : RECOMMENDATIONS: SPECIMEN #, LOCATION: 3 core samples , subareolar lower-outer quadrant mass. BIOPSY NEEDLE: 13 gauge Elite vacuum core biopsy needle. MARKERS(S) PLACED: A single metallic marker was placed in the appropriate targeted location. MEDICATION: Buffered 1% lidocaine with epinephrine administered locally. COMPLICATIONS: None. PATHOLOGY LAB: Pending. CONCLUSION: 1. Uneventful ultrasound-guided breast biopsy. 2. Pathology results are pending. An addendum to this report will be provided after pathology results are available.NormalThe [facility] Elizabeth Boardman HospitalMAMMO POST BIOPSY LEFTon [id number] POST BIOPSY LEFTPatient: MICHELLE NASH Exam Date: 04/20/2022 : 1940 Gender:F Ordering : MRS. HATCH CHANTELL DE JESUS Admission #: [id number] Family : Order #: [id number] CLICK HERE TO VIEW EXAM RADIOLOGY REPORT PROCEDURE: MAMMOGRAM POST BIOPSY IMAGES COMPARISON: MG MAMM SCREEN 3D ISAMAR CAD, 03/03/2022. INDICATIONS: Mammography abnormal BREAST COMPOSITION: FINDINGS: BIOPSY MARKER: A metallic marker has been placed in the targeted location within the subareolar lower-outer quadrant of the left breast. BREAST FINDINGS: Expected post biopsy findings. RECOMMENDATIONS: Dictated by: Yuki Fitzgerald M.D. on 04/20/2022 at 11:21 Approved by: Yuki Fitzgerald M.D. on 04/20/2022 at 11:[address] [place], [place] [address]CHEMISTRYOrdered By: Lab PATRICEUser on 19-35-9472Jxsujyx [Mass/Vol]137 mg/xBRigj04 - 99 mg/dLFTMC POC SubsectionComment on above:Result Comment: Notified RN/MDPOC Device [id number] Interpretation CodeFTMC POC SubsectionPOC User [id number] Interpretation CodeFTMC POC SubsectionPOC UsernamBridgerINNICKYYInvalid Interpretation CodeFTMC POC SubsectionGlucose [Mass/Vol]167 mg/nUKdjp68 - 99 mg/dLFTMC POC SubsectionComment on above:Result Comment: Notified RN/MDPOC Device [id number] Interpretation CodeFTMC POC SubsectionPOC User [id number] Interpretation CodeFTMC POC Subsection POC UsernamTiburcio TAYLORInvalid Interpretation CodeFTMC POC SubsectionGlucose [Mass/Vol]107 mg/oICxgd32 - 99 mg/dLFTMC POC SubsectionComment on above:Result Comment: Notified RN/MDPOC Device [id number] Interpretation CodeFTMC POC SubsectionPOC User [id number] Interpretation CodeFTMC POC Subsection POC UsernameDADRIANA BENITEZnvalid Interpretation CodeFTMC POC Subsection CHEMISTRYOrdered By: SYSTEM SYSTEM on 70-18-8531Fznkg gap [Moles/Vol]11 mmol/L Normal6 - 16 mEq/LFTMC RemisolCalcium [Mass/Vol]8.2 mg/dLLow8.9 - 11.1 mg/dLFTMC RemisolChloride [Moles/Vol]99 mmol/ADlu699 - 111 mmol/LFTMC RemisolCholesterol [Mass/Vol]128 mg/bLJgxmwu478 - 200 mg/dLFTMC RemisolCholesterol in HDL [Mass/Vol]33 mg/dLInvalid Interpretation CodeFTMC RemisolCholesterol in LDL [Mass/Vol]71 mg/dLNormal<=129mg/dLFTMC RemisolCholesterol in VLDL [Mass/Vol]30 mg/dLNormal7 - 40 mg/dLFT RemisolCO2 [Moles/Vol]24 mmol/HWyxxsr48 - 31 mmol/L [facility] RemisolCobalamin (Vitamin B12) [Mass/Vol]324 pg/yRGpgiei58 - 1500 pg/mLFTMC RemisolCreatinine [Mass/Vol]0.6 mg/dLNormal0.5 - 1.3 mg/dLFTMC RemisolFree T4 [Mass/Vol]1.12 ng/dLNormal0.58 - 1.64 ng/dLFTMC RemisolGFR/1.73 sq M.predicted among blacks MDRD (S/P/Bld) [Vol rate/Area]mL/min/1.73 o8Aydmon>=59mL/min/1.73 m2FT[facility] Chem SGFR/1.73 sq M.predicted among non-blacks MDRD (S/P/Bld) [Vol rate/Area]mL/min/1.73 d3Cocerp>=59mL/min/1.73 m2[facility] Chem SGlucose [Mass/Vol]161 mg/qHOgdmtj16 - 199 mg/dLFTMC RemisolPotassium [Moles/Vol]3.8 mmol/LNormal3.5 - 5.3 mmol/LFTMC RemisolSodium [Moles/Vol]130 mmol/BWuq175 - 145 mmol/LFTMC RemisolTriglyceride [Mass/Vol]152 mg/dLHigh<=149mg/dLFTMC RemisolTSH Qn6.46 m[IU]/LHigh0.34 - 5.60 mcIU/mLFTMC RemisolUrea nitrogen [Mass/Vol]16 mg/dLNormal 5 - 21 mg/dLFTMC RemisolUrea nitrogen/Creatinine [Mass ratio]27 mg/lkCzlj39 - 20 [facility] RemisolCHEMISTRYOrdered By: Samira Angelo on 92-48-5714DzG6n (Bld) [Mass fraction]7.7 %High<=5.9%[facility] ChemAutoSSHEMATOLOGYOrdered By: Daegis SYSTEM on 31-30-9931Clyybescg/100 WBC (Bld)0.4 %Normal0.0 - 2.0 %[facility] HemeAutoSS Basophils/Leukocytes Auto (Bld) [Pure # fraction]0.0 E9/LNormal0.0 - 0.2 E9/L [facility] HemeAutoSSEosinophils/100 WBC (Bld)8.8 %High0.0 - 8.0 %[facility] HemeAutoSS Eosinophils/Leukocytes Auto (Bld) [Pure # fraction]0.7 E9/LHigh0.0 - 0.5 E9/L [facility] HemeAutoSSLymphocytes/100 WBC (Bld)20.3 %Gpqvnr32.0 - 50.0 %[facility] HemeAutoSS Lymphocytes/Leukocytes Auto (Bld) [Pure # fraction]1.6 E9/LNormal1.0 - 4.0 E9/L [facility] HemeAutoSSMonocytes/100 WBC (Bld)9.8 %Normal4.0 - 14.0 %[facility] HemeAutoSS Monocytes/Leukocytes Auto (Bld) [Pure # fraction]0.8 E9/LNormal0.2 - 1.0 E9/L [facility] HemeAutoSSNeutrophils/100 WBC (Bld)60.7 %Nwtvzc09.0 - 75.0 %[facility] HemeAutoSS Neutrophils/Leukocytes Auto (Bld) [Pure # fraction]4.7 E9/LNormal2.0 - 7.5 E9/L [facility] HemeAutoSSHEMATOLOGYOrdered By: Eveline Mason on 76-21-8559Lojxnjrtfvp distribution width (RBC) [Ratio]13.1 %Uzwcyd02.9 - 14.2 %[facility] HemeAutoSS Hematocrit (Bld) [Volume fraction]35.5 %Ineugj32.0 - 46.0 %[facility] HemeAutoSS Hemoglobin (Bld) [Mass/Vol]11.9 g/dLLow12.0 - 16.0 gm/dLFTMC HemeAutoSSMCH (RBC) [Entitic mass]32.0 dmMjhfpj74.0 - 34.0 pgFTMC HemeAutoSSMCHC (RBC) [Mass/Vol] 33.6 g/zJYeiiru22.4 - 36.0 gm/dLFTMC HemeAutoSSMCV (RBC) [Entitic vol]95.1 fL Xrqsuh24.0 - 100.0 fLFTMC HemeAutoSSPlatelet mean volume (Bld) [Entitic vol]8.2 fLNormal6.4 - 10.8 fLFTMC HemeAutoSSPlatelets (Bld) [#/Vol]326.0 E9/YYyqvte174.0 - 500.0 E9/LFTMC HemeAutoSSRBC (Bld) [#/Vol]3.7 E12/LLow4.3 - 5.9 E12/LFTMC HemeAutoSSWBC corrected for nucl RBC Auto (Bld) [#/Vol]7.7 E9/LNormal4.0 - 11.0 E9/LFTMC HemeAutoSSHEMATOLOGYOrdered By: Mariya Sanz on 84-06-3294Fqd Rate Awcncukyt08 mm/hHigh0 - 34 mm/hrFTMC HemeAutoSSCHEMISTRYOrdered By: SYSTEM SYSTEM on 29-93-7977Qgdsoyd [Mass/Vol]3.3 g/dLNormal3.3 - 5.0 gm/dLFTMC Remisol Albumin/Globulin [Mass ratio]0.8 {ratio}Low1.1 - 2.2[facility] RemisolALP [Catalytic activity/Vol]49 [iU]/rZxlgcx57 - 98 Int._Unit/LFTMC RemisolALT No additional P-5'-P [Catalytic activity/Vol]11 [iU]/dNormal6 - 46 Int._Unit/LFTMC Remisol Anion gap [Moles/Vol]11 mmol/LNormal6 - 16 mEq/LFTMC RemisolAST [Catalytic activity/Vol]13 [iU]/dNormal5 - 43 Int._Unit/LFTMC RemisolBilirubin [Mass/Vol] 0.8 mg/dLNormal0.0 - 1.1 mg/dLFTMC RemisolBilirubin.direct [Mass/Vol]mg/dLNormal 0.1 - 0.4 mg/dLFTMC RemisolBilirubin.indirect [Mass or moles/Vol]Unable to Calculate mg/dLInvalid Interpretation Code0.1 - 0.9 mg/dLFTMC RemisolCalcium [Mass/Vol]8.8 mg/dLLow8.9 - 11.1 mg/dLFTMC RemisolChloride [Moles/Vol]97 mmol/L Tgk328 - 111 mmol/LFTMC RemisolCO2 [Moles/Vol]26 mmol/XNjilun04 - 31 mmol/LFTMC RemisolCreatinine [Mass/Vol]0.5 mg/dLNormal0.5 - 1.3 mg/dLFTMC RemisolGFR/1.73 sq M.predicted among blacks MDRD (S/P/Bld) [Vol rate/Area]mL/min/1.73 l7Njqpwy >=59mL/min/1.73 m2[facility] Chem SGFR/1.73 sq M.predicted among non-blacks MDRD (S/P/Bld) [Vol rate/Area]mL/min/1.73 t7Gjigvt>=59mL/min/1.73 m2[facility] Chem S Globulin (S) [Mass/Vol]4.1 g/dLHigh1.4 - 4.0 gm/dLFTMC RemisolGlucose [Mass/Vol] 74 mg/yKXqcqan59 - 199 mg/dLFTMC RemisolPotassium [Moles/Vol]3.7 mmol/LNormal3.5 - 5.3 mmol/LFTMC RemisolProtein [Mass/Vol]7.4 g/dLNormal6.0 - 7.8 gm/dLFTMC RemisolSodium [Moles/Vol]130 mmol/LMaf536 - 145 mmol/LFTMC RemisolTroponin I.cardiac [Mass/Vol]2.40 pg/mLLow10.10 - 27.10 pg/mLFTMC RemisolUrea nitrogen [Mass/Vol]22 mg/dLHigh5 - 21 mg/dLFTMC RemisolUrea nitrogen/Creatinine [Mass ratio]44 mg/xpNvwf43 - 20FT[facility] RemisolHEMATOLOGYOrdered By: SYSTEM SYSTEM on 16-48-6451Hjdxovwrl/100 WBC (Bld)0.4 %Normal0.0 - 2.0 %[facility] HemeAutoSS Basophils/Leukocytes Auto (Bld) [Pure # fraction]0.0 E9/LNormal0.0 - 0.2 E9/L [facility] HemeAutoSSEosinophils/100 WBC (Bld)8.4 %High0.0 - 8.0 %[facility] HemeAutoSS Eosinophils/Leukocytes Auto (Bld) [Pure # fraction]0.5 E9/LNormal0.0 - 0.5 E9/L [facility] HemeAutoSSLymphocytes/100 WBC (Bld)23.3 %Cypdki67.0 - 50.0 %[facility] HemeAutoSS Lymphocytes/Leukocytes Auto (Bld) [Pure # fraction]1.5 E9/LNormal1.0 - 4.0 E9/L [facility] HemeAutoSSMonocytes/100 WBC (Bld)11.5 %Normal4.0 - 14.0 %[facility] HemeAutoSS Monocytes/Leukocytes Auto (Bld) [Pure # fraction]0.7 E9/LNormal0.2 - 1.0 E9/L [facility] HemeAutoSSNeutrophils/100 WBC (Bld)56.4 %Jatlbx60.0 - 75.0 %[facility] HemeAutoSS Neutrophils/Leukocytes Auto (Bld) [Pure # fraction]3.5 E9/LNormal2.0 - 7.5 E9/L [facility] HemeAutoSSHEMATOLOGYOrdered By: Samira Angelo on 45-62-2545Tsmlwcpoeol distribution width (RBC) [Ratio]13.3 %Rpabeq40.9 - 14.2 %[facility] HemeAutoSS Hematocrit (Bld) [Volume fraction]35.0 %Igevjo31.0 - 46.0 %[facility] HemeAutoSS Hemoglobin (Bld) [Mass/Vol]11.8 g/dLLow12.0 - 16.0 gm/dLFTMC HemeAutoSSMCH (RBC) [Entitic mass]32.3 aeVfbosr88.0 - 34.0 pgFTMC HemeAutoSSMCHC (RBC) [Mass/Vol] 33.8 g/pVVfuohb77.4 - 36.0 gm/dLFTMC HemeAutoSSMCV (RBC) [Entitic vol]95.4 fL Fzmfof36.0 - 100.0 fLFTMC HemeAutoSSPlatelet mean volume (Bld) [Entitic vol]7.9 fLNormal6.4 - 10.8 fLFTMC HemeAutoSSPlatelets (Bld) [#/Vol]334.0 E9/NUqlxqw027.0 - 500.0 E9/LFTMC HemeAutoSSRBC (Bld) [#/Vol]3.7 E12/LLow4.3 - 5.9 E12/LFTMC HemeAutoSSWBC corrected for nucl RBC Auto (Bld) [#/Vol]6.3 E9/LNormal4.0 - 11.0 E9/LFTMC HemeAutoSSURINALYSISOrdered By: Magdiel Ott on 43-84-0736Dxvhrrvce Ql (U)Negative (04/08/22 8:30 PM)NormalNegativeJIM [facility] [place] U[facility] Auto SSClarity (U)Clear (04/08/22 8:30 PM)NormalClearFMUSCOGEE UA Auto SSColor (U)Yellow (04/08/22 8:30 PM)NormalYellowJIM [facility]ALIAFERRO [facility] [place] UA Auto SSEpithelial cells.squamous LM.HPF (Urine sed) [#/Area]0-2 /HPFNormal0-2/HPFJIM TALIAFERRO [facility] [place] UA Auto SSGlucose Test strip (U) [Mass/Vol]3+ *ABN* (04/08/22 8:30 PM)Invalid Interpretation CodeNegativeJIM [facility] [place] UA Auto SSHemoglobin Ql (U)Negative (04/08/22 8:30 PM)NormalNegativeJIM [facility] [place]A Auto SSKetones (U) [Mass/Vol]Trace *NA* (04/08/22 8:30 PM)Invalid Interpretation CodeNegativeJIM [facility] [place] UA Auto SS [place].plasma/[place].RBC (Bld) [Mass ratio]0-3 /HPFNormal0-3/HPFJIM [facility]ALIAFERRO [facility] [place] UA Auto SSNitrite Ql (U)Negative (04/08/22 8:30 PM)NormalNegativeJIM [facility] [place] UA Auto SSpH (U)6.0 *NA* (04/08/22 8:30 PM)Invalid Interpretation Code5.0 - 9.0J[facility] UA Auto SSProtein (U) [Mass/Vol]Negative (04/08/22 8:30 PM)NormalNegativeJIM [facility] [place] UA Auto SSSpecific gravity (U) [Rel density] 1.010 *NA* (04/08/22 8:30 PM)Invalid Interpretation Code1.005 - 1.030[facility] UA Auto SSUA Spec DescClean Catch (04/08/22 8:30 PM)NormalJIM [facility]ERR[facility] [place] UA Auto SSUrobilinogen Qn (U)0.9860370 {Vincent'U}/dLNormal0.0 - 1.0 EU/dLJIM [facility]ALIAFERRO [facility] [place] UA Auto SSWBC Auto Ql (U)Negative (04/08/22 8:30 PM)NormalNegativeFTMC UA Auto SSWBC LM.HPF (Urine sed) [#/Area]0-5 /HPFNormal0-5/HPFJIM [facility]AL[facility]ERRO [facility] [place] UA Auto SSYeast LM Ql (Urine sed)Trace (04/08/22 8:30 PM)NormalPRATT CLINIC / [facility] Auto SSGynecology Office/Clinic Noteon 12-28-2018 Gynecology Office/Clinic NoteChief Complaint 78 y/o, . Here for medication check on Detrol. for increased incont, urgency, frequency. History of Present Illness Age of Menopause: 41 years Abnormal vaginal discharge: No Pelvic pain: No Spotting: No Vaginal dryness: No Vaginal itch/burning/odor: No Additional HPI details: 78 y/o, . Here for medication check on Detrol for increased incontinence, urgency, frequency. Only has slight relief in the morning. Afternoons her symptoms increase-can change pads 3-6x daily. She denies side effects with medication and requesting trial of higher dose. Still considering PTNM. No bowel complaints. Review of Systems Cardio Respiratory Heart Irregularity: No Peripheral edema: No Shortness of Breath: No Gastrointestinal Abdominal Pain: No Bloating: No Change in bowel habits: No Reflux/heartburn: No Urinary Nocturia: Yes Painful urination: No Urgency: Yes Urinary frequency: Yes Urinary Incontinence: Yes Physical Exam Vitals & Measurements BP: 138/72 WT: 62.0 kg General: [Alert and oriented, well nourished, no acute distress]. Lungs: [Clear to auscultation and percussion, non-labored respiration]. Heart: [Normal rate, regular rhythm, no murmur, gallop or edema]. Abdomen: [Soft, non-tender, non-distended, normal bowel sounds, no masses]. Musculoskeletal: [Normal range of motion and strength, no tenderness or swelling]. Skin: [Skin is warm, dry and pink, no rashes or lesions]. Neurologic: [Awake, alert, and oriented X3, CN II-XII intact]. Psychiatric: [Cooperative, appropriate mood and affect]. Additional Vitals BP Position/Location: Sitting Assessment/Plan 1. Urinary incontinence, mixed Pt with minimal symptom relief with Detrol. We will increase dosage and see if it helps-reviewed risks/benefits/side effects. She is considering PTNM, but not sure she can come here weekly for sessions. Information given to her for Dr. Jackson in [place] who would be able to perform PTNM there as itis closer. She will call with any questions/problems prior to next appt. 2. Urinary frequency 3. Urinary urgency 4. Nocturia Orders: tolterodine, 1 caps, Oral, Daily, # 30 caps, 11 Refill(s), Pharmacy: [facility]/pharmacy #[id number] Problem List/Past Medical History Ongoing Arthritis Back pain Constipation Diabetes Dry skin Edema Frequent UTI Heartburn HTN (hypertension) Incomplete uterine prolapse Leg cramps Midline cystocele Migraines Nocturia Osteopenia Pancreatic cancer Pessary maintenance Seasonal allergies Urinary frequency Urinary incontinence, mixed Urinary urgency Uterine prolapse Historical No qualifying data Procedure/Surgical History back surgery x 2 bilateral cataracts bilateral eyelid lift hysteroscopy /AUB TL 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) CLOSURE OF VAGINA (08/23/2018) Colpocleisis (08/23/2018) Medications ALPRAZolam 0.25 mg oral tablet, 0.125 mg, 0.5 tabs, Oral, TID, PRN amitriptyline 10 mg oral tablet, 10 mg, 1 tabs, Oral, HS (at bedtime) atorvastatin 10 mg oral tablet, 10 mg, 1 tabs, Oral, Daily Bactrim DS 800 mg-160 mg oral tablet, 1 tabs, Oral, BID ibandronate 150 mg oral tablet, 150 mg, 1 tabs, Oral, qMonth Invokana 100 mg oral tablet, 300 mg, 3 tabs, Oral, Daily losartan 50 mg oral tablet, 50 mg, 1 tabs, Oral, Daily metFORMIN 500 mg oral tablet, 1000 mg, 2 tabs, Oral, BID oxybutynin 10 mg/24 hr oral tablet, extended release, 10 mg, 1 tabs, Oral, Daily, 11 refills propranolol 60 mg oral tablet, 60 mg, 1 tabs, Oral, BID tolterodine 2 mg oral capsule, extended release, 2 mg, 1 caps, Oral, Daily, 11 refills Valium 10 mg oral tablet, See Instructions Allergies No Known Allergies Social History Alcohol 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 Exercise Exercise type: Walking. Home/Environment Lives with Spouse. Living situation: Home/Independent. Nutrition/Health Caffeine intake amount: 2-3 cups coffee in am. Sexual Sexually active: No. Substance Abuse Denies All Tobacco Former smoker, quit more than 30 days ago Use:. Former smoker Family History CAD - Coronary artery disease: Sibling. Colon cancer: Mother. Lung cancer: Father. Stroke 25-SEP-2016 18:11:53<$>: Child. Thyroid disease: Sibling. Electronically signed by Binta Mack PA-C 12/28/18 17:01 [facility] Urineon 12-02-2018C Urine Final >100,000 cfu/ml Mixed gram positive and gram negative brenton isolated. This urine contains 3 or more organisms which is inconsistent with clean catch collection. Considerthe possibility of contamination during collection. No identification or susceptibility performed as results would be misleading [facility] WestComment on above:Performed By: #### URC #### [facility] (DEFAULT) [address] [place] [address]. Microscp Aon 33-92-1279IN RBC Quant0 /HPFNormal0-5BAdena Health SystemComment on above:Performed By: #### URC #### [facility] (DEFAULT) [address] [place], [place] [address]UA Squepi Cells Quant1 /HPFNormal0-29[facility] Medical CenterComment on above:Performed By: #### URC #### [facility] (DEFAULT) [address] [place], [place] [address]ZO WBC Quant0 /HPFNormal0-5BAdena Health System Comment on above:Performed By: #### URC #### [facility] (DEFAULT) [address] [place] [address] [facility] [address] [place], [place] [address]Ommhxlfxnx Office/Clinic Noteon [id number] Office/Clinic NoteChief Complaint Medication check History of Present Illness Age of Menopause: 41 years Abnormal vaginal discharge: No Pelvic pain: No Spotting: No Vaginal dryness: No Vaginal itch/burning/odor: No Additional HPI details: 78 y/o, . Here for medication check-Oxybutynin increased to 10mg for urgency, frequency, nocturia, incontinence. She states her urinary incontinence is the worst it's been-worse then before surgery. Has no control of urine at all. Soaking through a number 5/6 pad onto her pants at times. Has to change soaked pads 4-5x daily. Constipation-stool softeners, goes a couple days with no BM at times. She thinks her urine is stronger smelling then usual. She denies dysuria/hematuria/abdominal pain. Feels she is able to empty bladder well on her own. Review of Systems Additional Details Additional Details: Cardio Respiratory Heart Irregularity: No Peripheral edema: No Shortness of Breath: No Gastrointestinal Abdominal Pain: No Bloating: No Change in bowel habits: Yes Reflux/heartburn: No Urinary Nocturia: Yes Painful urination: No Urgency: Yes Urinary frequency: Yes Urinary Incontinence: Yes Physical Exam Vitals & Measurements BP: 108/68 HT: 152 cm WT: 62 kg BMI: 26.84 General: [Alert and oriented, well nourished, no acute distress]. Lungs: [Clear to auscultation and percussion, non-labored respiration]. Heart: [Normal rate, regular rhythm, no murmur, gallop or edema]. Abdomen: [Soft, non-tender, non-distended, normal bowel sounds, no masses]. Musculoskeletal: [Normal range of motion and strength, no tenderness or swelling]. Skin: [Skin is warm, dry and pink, no rashes or lesions]. Neurologic: [Awake, alert, and oriented X3, CN II-XII intact]. Psychiatric: [Cooperative, appropriate mood and affect]. Additional Vitals Body Mass Index Measured: 26.84 kg/m2 BP Position/Location: Sitting, Right arm Assessment/Plan 1. Urinary incontinence, mixed We will check UACS. Discussed trial of other anticholinergic and she is agreeable. Reviewed Detrol risks/benefits/side effects. She will f/u 4 weeks for medication check. She is interested in PTNM, but would need someone closer to [place]. Will check with rep to see if providers closer to her are available. She will call with any questions/problems prior to her f/u appt. 2. Urinary urgency 3. Urinary frequency 4. 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 Medications ALPRAZolam 0.25 mg oral tablet, 0.125 mg, 0.5 tabs, Oral, TID, PRN amitriptyline 10 mg oral tablet, 10 mg, 1 tabs, Oral, HS (at bedtime) atorvastatin 10 mg oral tablet, 10 mg, 1 tabs, Oral, Daily Bactrim DS 800 mg-160 mg oral tablet, 1 tabs, Oral, BID ibandronate 150 mg oral tablet, 150 mg, 1 tabs, Oral, qMonth Invokana 100 mg oral tablet, 300 mg, 3 tabs, Oral, Daily losartan 50 mg oral tablet, 50 mg, 1 tabs, Oral, Daily metFORMIN 500 mg oral tablet, 1000 mg, 2 tabs, Oral, BID oxybutynin 10 mg/24 hr oral tablet, extended release, 10 mg, 1 tabs, Oral, Daily, 11 refills propranolol 60 mg oral tablet, 60 mg, 1 tabs, Oral, BID Valium 10 mg oral tablet, See Instructions Allergies No Known Allergies Social History Alcohol 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 Exercise Exercise type: Walking. Home/Environment Lives with Spouse. Living situation: Home/Independent. Nutrition/Health Caffeine intake amount: 2-3 cups coffee in am. Sexual Sexually active: No. Substance Abuse Denies All Tobacco Former smoker, quit more than 30 days ago Use:. Former smoker Family History CAD - Coronary artery disease: Sibling. Colon cancer: Mother. Lung cancer: Father. Stroke 25-SEP-2016 18:11:53<$>: Child. Thyroid disease: Sibling. Electronically signed by Binta Mack PA-C 11/30/18 16:50 ESTNoParkview Health Bryan HospitalUA w Culture if Indon 13-87-5970Vtomq Nom (U)YellowNormMercy HealthComment on above:Performed By: #### [id number] #### [address] [address]Zdvfhzh mass conc (U)mg/dLAbnormokNegUniversity Hospitals Health SystemComment on above:Performed By: #### CD:[id number] #### [address] [address]Kbqiiru Ql (U)NegativeNormalNegUniversity Hospitals Health SystemComment on above:Performed By: #### CD:[id number] #### [address] [address]OI BloodNegativeNormokNegSelect Medical [facility] System Comment on above:Performed By: #### CD:[id number] #### [address] [address]JD ClarityClearNoParkview Health Bryan HospitalComment on above:Performed By: #### CD:[id number] #### [address] [address]PV Leukocyte EsteraseNegativeNormalNegativeUniversity Hospitals Samaritan Medical CenterComment on above:Performed By: #### [id number] #### [address], [place] [address]RN NitriteNegativeNormalNegativeUniversity Hospitals Samaritan Medical Center Comment on above:Performed By: #### CD:[id number] #### [address], [place] [address]XT pH6.6Cyxxqb8.5 - 7.8BlanMemorial Health SystemComment on above:Performed By: #### CD:[id number] #### [address] [address]IM ProteinNegativeNormalNegUniversity Hospitals Health System Comment on above:Performed By: #### [id number] #### [address] [place] [address]PJ SourceClean CatchNormMercy HealthComment on above:Performed By: #### [id number] #### [address], [place] [address]XO Spec Grav1.824Xlfuzy7.003-1.035[facility]aritan Medical CenterComment on above:Performed By: #### CD:[id number] #### [address], [place] [address]IP Urobilinogen0.2 mg/dLNormal0.2 - 1.0[facility]aritan Medical CenterComment on above:Performed By: #### CD:[id number] #### [address], [place] [address]Wpbyqunhhiww Qn (U)NegativeNormalNegUniversity Hospitals Health SystemComment on above:Performed By: #### CD:[id number] #### [address], [place] [address]Myiohyrubh Office/Clinic Noteon [phone] Office/Clinic NoteChief Complaint med check for oxybutynin. History of Present Illness Age of Menopause: 41 years Abnormal vaginal discharge: No Pelvic pain: No Vaginal itch/burning/odor: No Additional HPI details: 77 y/o, . Here for medication check-Oxybutynin for urgency, frequency, nocturia, incontinence. Pt is not having any relief of her urinary symptoms. When she stands urine runs out onto pad. She has noticed slight dry mouth, but not bothersome. Denies constipation or other side effects. Recent PCP appt with improved HgbA1c. Review of Systems Cardio Respiratory Heart Irregularity: No Peripheral edema: No Shortness of Breath: No Gastrointestinal Abdominal Pain: No Bloating: No Change in bowel habits: No Reflux/heartburn: No Urinary Nocturia: Yes Painful urination: No Urgency: Yes Urinary frequency: Yes Urinary Incontinence: Yes Physical Exam Vitals & Measurements HT: 152.6 cm WT: 62.3 kg BMI: 26.75 General: [Alert and oriented, well nourished, no acute distress]. Lungs: [Clear to auscultation and percussion, non-labored respiration]. Heart: [Normal rate, regular rhythm, no murmur, gallop or edema]. Abdomen: [Soft, non-tender, non-distended, normal bowel sounds, no masses]. Musculoskeletal: [Normal range of motion and strength, no tenderness or swelling]. Skin: [Skin is warm, dry and pink, no rashes or lesions]. Neurologic: [Awake, alert, and oriented X3, CN II-XII intact]. Psychiatric: [Cooperative, appropriate mood and affect]. Additional Vitals No qualifying data available. Assessment/Plan 1. Nocturia Discussed trial of another medication vs increasing dosage of Oxybutynin. She opted for increase ofOxybutynin to 10mg daily. She may call to try another medication if her dry mouth increases. Reviewed possible Botox vs PTNM as well. She is from [place] and would opt to see someone closer to home for this if she decides to proceed. She will f/u in the New Year for symptom review. She will call with any questions/problems prior to next appt. 2. Urinary frequency 3. Urinary urgency 4. 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 Medications ALPRAZolam 0.25 mg oral tablet, 0.125 mg, 0.5 tabs, Oral, TID, PRN amitriptyline 10 mg oral tablet, 10 mg, 1 tabs, Oral, HS (at bedtime) atorvastatin 10 mg oral tablet, 10 mg, 1 tabs, Oral, Daily Bactrim DS 800 mg-160 mg oral tablet, 1 tabs, Oral, BID ibandronate 150 mg oral tablet, 150 mg, 1 tabs, Oral, qMonth Invokana 100 mg oral tablet, 300 mg, 3 tabs, Oral, Daily losartan 50 mg oral tablet, 50 mg, 1 tabs, Oral, Daily metFORMIN 500 mg oral tablet, 1000 mg, 2 tabs, Oral, BID oxybutynin 5 mg/24 hours oral tablet, extended release, 5 mg, 1 tabs, Oral, Daily, 1 refills propranolol 60 mg oral tablet, 60 mg, 1 tabs, Oral, BID Valium 10 mg oral tablet, See Instructions Allergies No Known Allergies Social History Alcohol 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 Exercise Exercise type: Walking. Home/Environment Lives with Spouse. Living situation: Home/Independent. Nutrition/Health Caffeine intake amount: 2-3 cups coffee in am. Sexual Sexually active: No. Substance Abuse Denies All Tobacco Former smoker, quit more than 30 days ago Use:. Former smoker Family History CAD - Coronary artery disease: Sibling. Colon cancer: Mother. Lung cancer: Father. Stroke 25-SEP-2016 18:11:53<$>: Child. Thyroid disease: Sibling. Electronically signed by Binta Mack PA-C 10/26/18 16:08 ESTNormSelect Medical Specialty Hospital [facility] Urineon 09-30-2018C Urine Final 20-30,000 cfu/ml Mixed gram positive brenton isolated. This urine contains 3 or more organisms which is inconsistent with clean catch collection. Considerthe possibility of contamination during collection. No identification or susceptibility performed as results would be misleading [facility] WestComment on above:Performed By: #### CD:[id number] #### [address] [address].UA Microscp Aon [id number] RBC Quant0 /HPFNormal0-5BAdena Health SystemComment on above:Performed By: #### [id number] #### [address] [id number] Squepi Cells Quant<1Xrieso3-51QnkohrhdfUniversity Hospitals [facility]aritan [facility] Center Comment on above:Performed By: #### CD:[id number] #### [address] [address]YO WBC Quant4 /HPFNormal0-5BAdena Health System Comment on above:Performed By: #### CD:[id number] #### [address] [address]Ipvhfiatyy Office/Clinic Noteon [id number] Office/Clinic NoteChief Complaint urinary incont. History of Present Illness Age of Menopause: 41 years Abnormal vaginal discharge: No Pelvic pain: No Spotting: No Vaginal dryness: No Vaginal itch/burning/odor: Yes Additional HPI details: 77 y/o, . HX Colpocleisis 08/23/2018. C/o urinary issues x 1 month. Increased incontinence even after voiding. Thinks she has a foul odor. No recent urine culture. Denies vaginal discharge. Review of Systems Additional Details Additional Details: lower back ache, but does have chronic lumbar issues. Cardio Respiratory Heart Irregularity: No Shortness of Breath: No Gastrointestinal Abdominal Pain: No Bloating: No Change in bowel habits: No Reflux/heartburn: No Integumentary Lesions: Yes Musculoskeletal Back pain: Yes Urinary Nocturia: Yes Painful urination: No Urinary frequency: Yes Urinary Incontinence: Yes Physical Exam Vitals & Measurements BP: 128/78 HT: 152.6 cm WT: 61.4 kg BMI: 26.37 Lungs: [Clear to auscultation and percussion, non-labored respiration]. Heart: [Normal rate, regular rhythm, no murmur, gallop or edema]. Abdomen: [Soft, non-tender, non-distended, normal bowel sounds, no masses]. External Genitalia: [Normal urethral meatus, no lesions, vulvar skin intact]. Genitourinary: [Normal vaginal mucosa, no lesions or abnormal discharge, no bleeding. Colpocleisis incisions healing with visible suture]. Bimanual exam: [No tenderness or masses]. Additional Vitals No qualifying data available. Assessment/Plan 1. Urinary incontinence, mixed UACS pending. Reviewed urge incontinence symptoms and treatment options including behavioral modifications, Kegels, medications, PTNM, Botox and InterStim. At this time, she opted to try medications.Discussed risks/benefits/side effects of medication and she wished to try Oxybutynin as Myrbetriq was not covered by her insurance. She will f/u in 4 weeks for medication check. She lives near [place] which would make it very difficult to commit to PTNM due to being [address] from [address]. She will call with any questions/problems prior to next appt. Ordered: Culture Urine Urinalysis with Culture, if indicated 2. Urinary urgency Ordered: Culture Urine Urinalysis with Culture, if indicated 3. Urinary frequency Ordered: Culture Urine Urinalysis with Culture, if indicated 4. Nocturia Ordered: Culture Urine Urinalysis with Culture, if indicated Orders: oxybutynin, 1 tabs, Oral, Daily, # 30 tabs, 1 Refill(s), Pharmacy: [facility]/pharmacy #[id number] Problem List/Past Medical History Ongoing Arthritis Back pain Constipation Diabetes Dry skin Edema Frequent UTI Heartburn HTN (hypertension) Incomplete uterine prolapse Leg cramps Midline cystocele Migraines Nocturia Osteopenia Pancreatic cancer Pessary maintenance Seasonal allergies Urinary frequency Urinary incontinence, mixed Urinary urgency Uterine prolapse Historical No qualifying data Procedure/Surgical History CLOSURE OF VAGINA (08/23/2018), Colpocleisis (08/23/2018), 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 Medications ALPRAZolam 0.25 mg oral tablet, 0.125 mg, 0.5 tabs, Oral, TID, PRN amitriptyline 10 mg oral tablet, 10 mg, 1 tabs, Oral, HS (at bedtime) atorvastatin 10 mg oral tablet, 10 mg, 1 tabs, Oral, Daily Bactrim DS 800 mg-160 mg oral tablet, 1 tabs, Oral, BID ibandronate 150 mg oral tablet, 150 mg, 1 tabs, Oral, qMonth Invokana 100 mg oral tablet, 300 mg, 3 tabs, Oral, Daily losartan 50 mg oral tablet, 50 mg, 1 tabs, Oral, Daily metFORMIN 500 mg oral tablet, 1000 mg, 2 tabs, Oral, BID propranolol 60 mg oral tablet, 60 mg, 1 tabs, Oral, BID Valium 10 mg oral tablet, See Instructions Allergies No Known Allergies Social History Alcohol 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 Exercise Exercise type: Walking. Home/Environment Lives with Spouse. Living situation: Home/Independent. Nutrition/Health Caffeine intake amount: 2-3 cups coffee in am. Sexual Sexually active: No. Substance Abuse Denies All Tobacco Former smoker Family History CAD - Coronary artery disease: Sibling. Colon cancer: Mother. Lung cancer: Father. Stroke 25-SEP-2016 18:11:53<$>: Child. Thyroid disease: Sibling. Electronically signed by Binta Mack PA-C 09/28/18 17:21 [facility] Medical CenterUA w Culture if Indon [id number] Nom (U)[facility]ert County HospitalComment on above:Performed By: #### CD:[id number] #### [facility] [address] [facility], [place] [address]Rtsxcie mass conc (U)mg/dLAbnormalNegUniversity Hospitals Health SystemComment on above:Performed By: #### CD:[id number] #### [facility] [address] [place] [address], [place] [address]Naupxhn Ql (U)NegativeNormalNegSelect Medical OhioHealth Rehabilitation Hospital SystemComment on above:Performed By: #### CD:[id number] #### [address], [place] [address]QW BloodNegativeNormalNegativeUniversity Hospitals Samar[facility] Comment on above:Performed By: #### CD:[id number] #### [address], [place] [address]QS ClarityClearNormMercy HealthComment on above:Performed By: #### CD:[id number] #### [address], [place] [address]NI Leukocyte EsteraseSmallAbnormokNegUniversity Hospitals Health SystemComment on above:Performed By: #### CD:[id number] #### [address], [place] [address]VQ NitriteNegativeNormalNegUniversity Hospitals Health System Comment on above:Performed By: #### CD:[id number] #### [address], [place] [address]XW pH5.4Mtesya5.5 - 7.8BlanMemorial Health SystemComment on above:Performed By: #### CD:[id number] #### [address], [place] [address]YT ProteinNegativeNormalNegUniversity Hospitals Health System Comment on above:Performed By: #### CD:[id number] #### [address], [place] [address]XF SourceClean CatchNormalHocking Valley Community Hospital SystemComment on above:Performed By: #### CD:[id number] #### [address] [address]EA Spec Grav1.685Vrrknb1.003-1.035[facility] Samaritan Medical CenterComment on above:Performed By: #### CD:[id number] #### [address] [address] Urobilinogen0.2 mg/dLNormal0.2 - 1.0[facility]aritan Medical CenterComment on above:Performed By: #### CD:[id number] #### [address] [address]Dcixhjvnxzwv Qn (U)NegativeNormalNegativeUniversity Hospitals Samaritan Medical CenterComment on above:Performed By: #### CD:[id number] #### [address] [address]Zzxyqu DNA Panelon [id number] DNANegativeNormalNegative [facility] Samaritan Medical CenterComment on above:Result Comment: The AffirmVPII Microbial Identification Test is a nucleic acid hybridization test for the detection of Maurisio species, Gardnerella vaginalis and Trichomonas vaginalis nucleic acid inthe vaginal fluid specimens from patients with symptoms of vaginitis/vaginosis. A positive result for Maurisio, Gardnerella, and/or Trichomonas vaginalis means nucleic acid is present in the sample and indicates that the patient has candidiasis, bacterial vaginosis, and/or trichomoniasis when consistent with clinical signs and symptoms. A negative result for Maurisio, Gardnerella, or Trichomonas tests suggests the patient does not havecandidiasis, bacterial vaginosis and/or trichomonas, respectively, when consistent with clinical signs and symptoms. Results should be interpreted in conjunction with other clinical and laboratory data available to the clinician such as pH, amine odor, and vaginal discharge characterisitics. Simultaneous infectionsby more than one organism are common. Performed By: #### CD:[id number] #### [address] [address]Pyealbyzquf DNANegativeNormalNegativeUniversity Hospitals Samaritan Medical CenterComment on above:Performed By: #### CD:[id number] #### [address] [place], [place] [address]Wviocwokwqy DNANegativeNormalNegativeUniversity Hospitals Samaritan Medical CenterComment on above:Performed By: #### CD:[id number] #### [facility] [address] [place], [place] [address]Fyiskjrzru Office/Clinic Noteon [id number] Office/Clinic NoteChief Complaint Post Op History of Present Illness Preoperative Diagnosis 08/23/2018 Uterine prolapse Cystocele Postoperative Diagnosis same Operation [place] Colpocleisis [1] Endometrial Bx from 08/11/2018: Microscopic Description (Verified) Sections of the endometrial curettings reveal scant endometrial tissue mixed with mucus. The endometrial tissue shows rare tubular benign endometrial glands with surrounding benign endometrial stroma. No cytologic atypia is present. Also included are tiny fragments of benign endocervical epitheliumand mucus. The findings are suggestive of postmenopausal atrophic endometrium. Diagnosis (Verified) Endometrial curettings: Scant endometrial tissue with rare benign tubular endometrial glands consistent with postmenopausal atrophic endometrium. No endometrial hyperplasia or cytologic atypia is identified. [2] Review of Systems Gastrointestinal Abdominal Pain: No Bloating: No Change in bowel habits: No Reflux/heartburn: No Urinary Nocturia: No Painful urination: No Urgency: No Urinary frequency: No Urinary Incontinence: No Physical Exam Vitals & Measurements BP: 130/80 HT: 152.6 cm WT: 61.4 kg BMI: 26.37 General: [Alert and oriented, well nourished, no acute distress]. Abdomen: [Soft, non-tender, non-distended, normal bowel sounds, no masses]. Musculoskeletal: [Normal range of motion and strength, no tenderness or swelling]. Skin: [Skin is warm, dry and pink, no rashes or lesions]. Neurologic: [Awake, alert, and oriented X3, CN II-XII intact]. Psychiatric: [Cooperative, appropriate mood and affect]. External Genitalia: [Normal urethral meatus, no lesions, vulvar skin intact but excoriated and whitish discharge consistent with maurisio- affirm done]. Genitourinary: [Normal vaginal mucosa, no lesions or abnormal discharge. No cystocele or rectocele]. 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 Constipation ? Temperature greater than 100? ? Significant bleeding ? Any other concerns No sex until cleared by physician. No lifting greater than 10 pounds for 6 weeks until cleared by physician. 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 Medications ALPRAZolam 0.25 mg oral tablet, 0.125 mg, 0.5 tabs, Oral, TID, PRN amitriptyline 10 mg oral tablet, 10 mg, 1 tabs, Oral, HS (at bedtime) atorvastatin 10 mg oral tablet, 10 mg, 1 tabs, Oral, Daily Bactrim DS 800 mg-160 mg oral tablet, 1 tabs, Oral, BID ibandronate 150 mg oral tablet, 150 mg, 1 tabs, Oral, qMonth Invokana 100 mg oral tablet, 300 mg, 3 tabs, Oral, Daily losartan 50 mg oral tablet, 50 mg, 1 tabs, Oral, Daily metFORMIN 500 mg oral tablet, 1000 mg, 2 tabs, Oral, BID propranolol 60 mg oral tablet, 60 mg, 1 tabs, Oral, BID Valium 10 mg oral tablet, See Instructions Allergies No Known Allergies Social History Alcohol 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 Exercise Exercise type: Walking. Home/Environment Lives with Spouse. Living situation: Home/Independent. Nutrition/Health Caffeine intake amount: 2-3 cups coffee in am. Sexual Sexually active: No. Substance Abuse Denies All Tobacco Former smoker Family History CAD - Coronary artery disease: Sibling. Colon cancer: Mother. Lung cancer: Father. Stroke 25-SEP-2016 18:11:53<$>: Child. Thyroid disease: Sibling. [1] Op Note; Kitty Johnson DO 08/23/2018 06:05 EDT [2] Surgical Pathology Report; 08/11/2018 15:36 EDT Electronically signed by Alex FISHER Kittycruz Leroy 09/01/18 17:41 EDT Electronically signed by Amira Mendieta 08/31/2018 16:15 EDTRegency Hospital Cleveland WestCase Promos Executive Producer Progress Noteon [id number] [employer] Executive Producer Progress NoteMet with patient and spouse regarding transitions of care. Patient states she has prescription drug coverage and is able to afford her medications. Patient has a supportive spouse who can transport to and from appointments. She is interested in bedside medication delivery if scripts are wrote at discharge. Patient discussed during transitions of care huddle. Electronically signed by Bette Alvarez 08/24/18 10:51 TRegency Hospital Cleveland WestInpatient Clinical Summaryon [id number] Clinical Summary[address] [address] [place] [address] Clinical Summary Person Information Name: Michelle Nash Age: 77 Years : 1940 Sex: Female PCP: Suleman Jackson MD Marital Status: PCP: [phone] Race: White Ethnicity: Not or Language: Pakistani Visit Id: Visit Reason: Speciality: Acuity: Enc Type: Observation Med Service: Surgery Arrival: 08/23/2018 05:53:05 Discharge: Dispo Type: Address: [address] [place] [address] Diagnosis: Frequent UTI; Midline cystocele; Pain; Uterine prolapse Discharged To: Home Treatments: Devices/Equipment: Professional Skilled Services: Special Services and Community Resources: Mode of Discharge Transportation: Discharge Orders Allergies No Known Allergies Functional Status: Sensory Deficits: None History of Falls: Mobility Assistance Prior to Admission: ADLs: Independent Gait: Steady Ambulation Assist: Assistive Device: None Special Orthopedic Devices: Current Level of Assistance for Self-Care/Mobility: Cognitive Status: Orientation: Orientation Assessment Oriented x 4 Level of Consciousness: Alert Characteristics of Speech: Clear Aspiration Risk: None Affect/Behavior: Appropriate, Calm, Cooperative Laboratory or Other Results This Visit (last charted value for your 08/23/2018 visit) POC Testing 08/23/2018 6:26 AM POC Gluc Random: 140 mg/dL -- Normal range between ( 78 and 110 ) Measurements: Height: Weight: Blood Pressure: 121 mmHg / BMI: Respiratory: Respirations: Unlabored Respiratory Symptoms: None Cardiovascular: Heart Sounds: Heart Rhythm: Regular Gastrointestinal: GI Symptoms: Bowel Sounds: Present Vital Signs: Temp Axillary: 36.5 degC Temp Temporal Artery: 36.7 degC Temp Oral: 36.4 degC Temp Rectal: Apical Heart Rate: Peripheral Pulse Rate: 89 bpm Heart Rate: 77 bpm Respiratory Rate: 16 br/min Diet Diet: Feeding Tolerance: Appetite: Good Tanner Assessment: 20 Procedures Colpocleisis (08/23/2018) Immunizations No Immunizations Documented This Visit Medications That Have Not Changed Other Medications ALPRAZolam (ALPRAZolam 0.25 mg oral tablet) 0.5 Tabs Oral (given by mouth) 3 times a day as needed as needed for anxiety. Last Dose: amitriptyline (amitriptyline 10 mg oral tablet) 1 Tabs Oral (given by mouth) once a day (at bedtime). Last Dose: atorvastatin (atorvastatin 10 mg oral tablet) 1 Tabs Oral (given by mouth) every day. Last Dose: canagliflozin (Invokana 100 mg oral tablet) 3 Tabs Oral (given by mouth) every day. Last Dose: diazePAM (Valium 10 mg oral tablet) Bring to office day of procedure. Last Dose: ibandronate (ibandronate 150 mg oral tablet) 1 Tabs Oral (given by mouth) once a month. Last Dose: losartan (losartan 50 mg oral tablet) 1 Tabs Oral (given by mouth) every day. Last Dose: metFORMIN (metFORMIN 500 mg oral tablet) 2 Tabs Oral (given by mouth) 2 times a day. 2-am, 1-lunch,2-dinner. Last Dose: propranolol (propranolol 60 mg oral tablet) 1 Tabs Oral (given by mouth) 2 times a day. Last Dose: sulfamethoxazole-trimethoprim (Bactrim DS 800 mg-160 mg oral tablet) 1 Tabs Oral (given by mouth) 2times a day for 30 Days., Rx per PCP Last Dose: These Medications Were Removed and Should No Longer Be Taken cholecalciferol (Vitamin D3) Stop Taking Reason: Physician Request ibuprofen (Motrin) 400 Milligram Oral (given by mouth) every 6 hours as needed as needed for pain. Stop Taking Reason: Physician Request ketorolac (Toradol) 1 at hs prior to procedure, repeat in am of procedure, may take 1 q6hrs prn after procedure., Called to [facility] Jenny- verbal order Dr Johnson Stop Taking Reason: Physician Request Misc Medication (Trimosan) Stop Taking Reason: Physician Request miSOPROStol (Cytotec 200 mcg oral tablet) 1 tabs Oral QID., Called to [facility] Jenny- verbal order DR Johnson Stop Taking Reason: Physician Request ondansetron (Zofran ODT 8 mg oral tablet, disintegrating) Bring to office day of procedure, may take 1 tid after procedure., Called to [facility]- verbal order Dr Johnson Stop Taking Reason: Physician Request Care Team Members: Attending Physician: Kitty Johnson DO Consulting Physician: Referring Physician: Follow up: Type Location Start Finish State SP Established Patient Visit 15 [facility] 09/01/2018 16:30:00 09/01/2018 17:00:00 ConfirmedNormalBlMiddletown HospitalHistory and Physicalon [id number] and PhysicalChief Complaint Hysteroscopy. Pre Op/Sign Consents History of Present Illness Age of Menopause: 41 years Abnormal vaginal discharge: No Breast lumps/pain: No Hot flashes: No Night sweats: No Pelvic pain: No Vaginal dryness: No Vaginal itch/burning/odor: No Additional HPI details: 77 y/o . Hysteroscopy for thickened endometrium. Pre Op for Colpocleisis. Last Office Visit 06/29/2018 She would like to proceed with colpocleisis at this time. We gave her Adriana's card and she is looking at being scheduled in July as she usually travels with her over Labor Day. She will call with any questions/problems prior to surgery. She will come back to sign consents/H+P with Dr. Johnson prior to surgery. [1] Microscopic Description (Verified) 05/09/2018 Sections of the endometrial biopsy reveals scant tiny fragments of endometrial epithelial lining mixed with endocervical epithelium and abundant mucus. No endometrial glands are present. Also presentis a small dilated benign endocervical gland. No intact endometrial glands or stroma is seen. The specimen is insufficient for evaluation of endometrial pathology. Diagnosis (Verified) Endometrium, biopsy: Limited specimen consisting of scant tiny fragments of endometrial epithelial lining, endocervical epithelial cells and abundant mucus. No cytologic atypia is identified. [2] Discussion with the patient included the preop and postop care of [Colpocleisis]. Discussed the potential extent of the procedure. Reviewed indication and alternatives to [Colpocleisis]. Disclosed the potential risks, complications and hazards including but not limited to pain, infection, excessive bleeding, damage to adjacent organs (major blood vessels, ureters, bladder, colon, bowels, ovaries), laparotomy or delayed major operations due to complications, thrombi and emboli, anesthetic, and possible . The patient understands all the above, has had all questions answered and wishes to undergo the operation. The plan is colpocleisis however her endometrium is thicker and we were unable to get any endometrial cells. Need hysteroscopy with bx before the colpocleisis Review of Systems Cardio Respiratory Heart Irregularity: No Shortness of Breath: No ENT Congestion: No Nasal drainage: No Sore throat: No Vertigo: No Gastrointestinal Abdominal Pain: No Bloating: No Change in bowel habits: No Reflux/heartburn: Yes Hematologic/Lymphatic Bleeding tendencies: No Bruising: No Thromboembolism: No Urinary Nocturia: Yes Painful urination: No Urgency: Yes Urinary frequency: Yes Urinary Incontinence: Yes Physical Exam Vitals & Measurements BP: 122/80 WT: 63.2 kg General: [Alert and oriented, well nourished, no acute distress]. Musculoskeletal: Normal range of motion and strength, no tenderness or swelling. Skin: Skin is warm, dry and pink, no rashes or lesions. Neurologic: Awake, alert, and oriented X3, CN II-XII intact. Psychiatric: Cooperative, appropriate mood and affect. External Genitalia: Normal urethral meatus, no lesions, vulvar skin intact. Genitourinary: Normal vaginal mucosa, no lesions or abnormal discharge, cervix intact without lesions or bleeding. Grade 3-4 prolapse of anterior vaginal wall and uterus, some posterior support Hysteroscopy/removal of pessary & replacement Patient was taken back to the procedure room where was positioned in dorsal lithotomy position prepped and draped in normal sterile manner. Patient was prepped before removal of pessary and then again after removal. After time-out a weighted speculum was placed in the vaginal vault the anterior lipof the cervix grasped with a single-tooth tenaculum. Uterus is sounded, cervix is serially dilated until a hysteroscope was able to be advanced. Hysteroscopy with saline as the medium is accomplishedwhich reveals the above findings once this is complete the hysteroscope is removed and the cervix was further dilated and a curette is advanced into the uterine cavity. Curettage is then performed eleazar pling all the quadrants of the uterus. At this point all instruments are removed once hemostasis isassured the procedure is ended. The pessary was cleansed and replaced. Assessment/Plan Incomplete uterine prolapse Midline cystocele Thickened endometrium Urinary incontinence, mixed Urinary urgency Planned surgery: Colpocleisis Pain meds: Additional concerns: Followup appt 2wks post op Post op recommendations 1. Important to stay ambulatory (walking) to prevent a DVT, pneumonia and/or constipation. 2. Use stool softeners such as Colace 100mg twice daily or Miralax if still taking pain medications. 3. No sex, tampons or douching until 6-8 weeks post op. 4. Continue to drink plenty of water. 5. No lifting, pushing or pulling greater than 10 pounds until cleared by physician. Patient to notify us if: -Constipation -Temperature >100 -Significant bleeding -Any other concerns [1] [1] Hysteroscopy/Pre Op; Kitty Johnson DO 08/11/2018 15:20 EDT Electronically signed by Kitty Johnson DO 08/23/18 06:05 EDTNormMer[facility] Operative Reporton [id number] ReportIndication for Surgery 77-year-old female who is no longer sexually active and has had an endometrial biopsy with hysteroscopy performed confirming normal endometrial tissue elect to proceed with colpocleisis. Informed consent is been obtained for such. 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 Estimated Blood Loss 20 mL Urine Output Clear Findings Findings consistent with examination in the office Specimen(s) none Complications None apparent Technique Patient was taken back to the operating suite where after appropriate consent had been confirmed she was positioned on the table in the dorsal lithotomy position. Sterile prep and drape consent accomplished followed then by removal of the pessary and reprep of the vagina. Patient has uterine prolapse along with cystocele rectocele with the anterior compartment being worst. Winter catheter was placed and balloon insufflated. [place] retractors then utilized for retraction and the cervix is grasped with single-tooth tenaculum a rectangle of tissue was then removed from the anterior portion of the vagina as well as the posterior portion of the vagina. We then utilized over Vicryl pop offs to close the mucosa in a horizontal manner creating a tunnel bilaterally. At this point since the anterior defect was much more prominent we do close portion of the defect in a vertical manner giving support to the urethra lower bladder neck utilizing 0 Vicryl pop-off sutures. We then continue with thecolpocleisis by closing anterior to posterior the remaining vaginal mucosa completely obliterating the vaginal opening. Good hemostasis is noted and the lateral drainage tubes are verified. Once complete patient is awakened and taken to recovery in apparent stable condition. Tourniquet Time non applicable Sponge/Needle Count correct Fluid Count as documented on anesthesia record Electronically signed by Kitty Johnson DO 08/23/18 10:01 EDTNormalUniversity Hospitals Samaritan Medical CenterPO Glucose Randomon [id number] mass hzxr664 mg/dOFqyj85-531AmdrnlpyfUniversity Hospitals Samaritan Medical CenterComment on above:Performed By: #### [facility]CI #### [address] [address].eGFRon 58-86-3147dSVP Non-AA>60Normal>=60[facility] Medical CenterComment on above:Result Comment: Result = 0-14.9 mL/min/1.73 m2 Kidney failure or Dialysis Result = 15-29 mL/min/1.73 m2 Severe decrease in GFR Result = 30-59 mL/min/1.73 m2 Moderate decrease in GFR Result >= 60 mL/min/1.73 m2 Normal or increased GFR Chronic kidney disease is defined as either kidney damage or GFR < 60 mL/min/1.73 m2 for >= 3months. Kidney damage is defined as pathologic abnormalities or markers of damage including abnormalities in blood or urine tests or imaging studies. This GFR is NOT used for medication dosing. Performed By: #### [facility]CI #### [address] [address]eAGJ AA>60Normal>=60[facility]itan Medical CenterComment on above:Result Comment: Result = 0-14.9 mL/min/1.73 m2 Kidney failure or Dialysis Result = 15-29 mL/min/1.73 m2 Severe decrease in GFR Result = 30-59 mL/min/1.73 m2 Moderate decrease in GFR Result >= 60 mL/min/1.73 m2 Normal or increased GFRPerformed By: #### [facility]CI #### [address] [address]FJR w/ Diffon [id number] distribution width Ratio (RBC)13.5 %Kdwujo70.6-14.8BAdena Health SystemComment on above: Performed By: #### UCI #### [address] [address]Mlxuovmsrj Volume Fraction (Bld)41.3 %Gozjcy93.0-46.0[facility] Medical CenterComment on above:Performed By: #### [facility]CI #### [address] [address]Jpqnkiphwb mass conc (Bld)13.9 g/nLFipdhw97.0-16.0[facility] Medical CenterComment on above:Performed By: #### [facility]CI #### [address] [address]VIS Entitic mass (RBC)32.3 olHdfnvm73.0-35.0[facility] Medical CenterComment on above:Performed By: #### UCI #### [address] [address]KWSJ mass conc (RBC)33.6 %Onplke23.0-37.0[facility] Medical CenterComment on above:Performed By: #### UCI #### [address] [address]ANM Entitic volume (RBC)96.1 qWDxpfeq24.0-100.0[facility] Medical CenterComment on above:Performed By: #### UCI #### [address] [address]Nskxpvzo mean volume Entitic volume (Bld)9.3 fLNormal6.7-10.6 [facility] CenterComment on above:Performed By: #### UCI #### [address] [address]Rzhvkydjk #/vol (Bld)314 x10*3/qkHWvapol043-068PbioltyqfUniversity Hospitals Samaritan Medical CenterComment on above:Performed By: #### UCI #### [address] [address]GEK #/vol (Bld)4.30 x10*6/mcLNormal3.80-5.20[facility] Medical CenterComment on above:Performed By: #### UCI #### [address] [address]LFD #/vol (Bld)8.2 x10*3/mcLNormal4.5-11.0[facility] Medical CenterComment on above:Performed By: #### UCI #### [address] [address]QGThl 83-43-5175Iinzyha mass conc3.9 g/dLNormal3.2-4.9BAdena Health SystemComment on above:Result Comment: [facility] updated the methodology used for albumin testing on 07/06/18. Albumin measurement was performed using a bromcresol purple dye-binding assay.Performed By: #### UCI #### [address] [address]Brxgttu/Globulin mass ratio1.1 {ratio}Normal1.1-2.2BAdena Health SystemComment on above:Performed By: #### UCI #### [address] [address]Pek Phos51 IU/KIgernf49-73RrzyeukdyUniversity Hospitals Samaritan Medical CenterComment on above:Performed By: #### UCI #### [address] [address]SXQ enzyme act/vol22 U/YDkdmxm73-23JqfzharssUniversity Hospitals Samaritan Medical CenterComment on above:Performed By: #### UCI #### [address] [address]Vkyib gap molar conc14 mmol/LNormal7-17[facility] CenterComment on above:Performed By: #### UCI #### [facility] [address] [facility], [place] [address]VKA enzyme act/vol26 U/KLkyats28-19PflunfjziUniversity Hospitals Samaritan Medical CenterComment on above:Performed By: #### UCI #### [address], [place] [address]Epuo Total0.3 mg/dLNormal0.3-1.2BAdena Health System Comment on above:Performed By: #### UCI #### [address], [place] [address]Zyaxisj mass conc9.6 mg/dLNormal8.5-10.3BAdena Health SystemComment on above:Performed By: #### UCI #### [address], [place] [address]Lewxlxum molar conc99 mmol/CLrzayp51-185BbeqdkwmsUniversity Hospitals Samaritan Medical CenterComment on above:Performed By: #### UCI #### [address], [place] [address]FU0 molar conc26 mmol/MUdnifh87-56KgnqxnvllUniversity Hospitals Samaritan Medical CenterComment on above:Performed By: #### UCI #### [address], [place] [address]Kjxcxhctil mass conc0.73 mg/dLNormal0.44-1.03[facility] Medical CenterComment on above:Performed By: #### UCI #### [address], [place] [address]Fnfxttk mass conc92 mg/zWYvzagr47-792OppwranvyUniversity Hospitals Samaritan Medical CenterComment on above:Performed By: #### UCI #### [address], [place] [address]Kderjygyr molar conc4.5 mmol/LNormal3.4-4.8BAdena Health SystemComment on above:Performed By: #### UCI #### [address], [place] [address]Zktkmum mass conc7.5 g/dLNormal6.5-8.1BAdena Health SystemComment on above:Performed By: #### UCI #### [address] [address]Pjdtng molar zqld606 mmol/YXaxoxt715-635XytxtawpiUniversity Hospitals Samaritan Medical CenterComment on above:Performed By: #### UCI #### [address] [address]Cidd nitrogen mass conc29 mg/dLHigh8-26[facility] Medical CenterComment on above:Performed By: #### UCI #### [address] [address]Wblc nitrogen/Creatinine mass ratio39.7 mg/crGwxx37.0-20.0 [facility] Medical CenterComment on above:Performed By: #### UCI #### [address] [address]Ifvf Autoon 57-03-7863Nhlp Absolute0.1 x10*3/mcLNormal0.0-0.2 [facility] Medical CenterComment on above:Performed By: #### UCI #### [address] [address]Csjxhntak/100 WBC (Bld)1.0 %Normal0.0-1.5BAdena Health SystemComment on above:Performed By: #### UCI #### [address] [address]Dyq Absolute0.4 x10*3/mcLNormal0.0-0.4BAdena Health SystemComment on above:Performed By: #### UCI #### [address] [address]Ipykkwddqoa/100 WBC (Bld)4.7 %Normal0.0-5.4BAdena Health SystemComment on above:Performed By: #### UCI #### [address] [address]Dwuuaeltval #/vol (Bld)1.7 x10*3/mcLNormal1.0-4.8BAdena Health SystemComment on above:Performed By: #### UCI #### [address] [address]Rqmtviirrpr/100 WBC (Bld)21.2 %Low27.2-40.8BAdena Health SystemComment on above:Performed By: #### UCI #### [address] [address]Bilk Absolute0.8 x10*3/mcLNormal0.1-1.1BAdena Health SystemComment on above:Performed By: #### UCI #### [address] [address]Bveelhweq/100 WBC (Bld)9.9 %Normal3.7-11.9BAdena Health SystemComment on above:Performed By: #### UCI #### [address] [address]Lmrgef Absolute5.2 x10*3/mcLNormal1.8-7.7BAdena Health SystemComment on above:Performed By: #### UCI #### [address] [address]Fqrrnt Auto63.2 %Nswefd66.2-70.8BAdena Health System Comment on above:Performed By: #### UCI #### [address] [address]Pvjbpxiywq Office/Clinic Noteon [id number] Office/Clinic NoteChief Complaint Hysteroscopy. Pre Op/Sign Consents History of Present Illness Age of Menopause: 41 years Abnormal vaginal discharge: No Breast lumps/pain: No Hot flashes: No Night sweats: No Pelvic pain: No Vaginal dryness: No Vaginal itch/burning/odor: No Additional HPI details: 77 y/o . Hysteroscopy for thickened endometrium. Pre Op for Colpocleisis. Last Office Visit 06/29/2018 She would like to proceed with colpocleisis at this time. We gave her Adriana's card and she is looking at being scheduled in July as she usually travels with her over Labor Day. She will call with any questions/problems prior to surgery. She will come back to sign consents/H+P with Dr. Johnson prior to surgery. [1] Microscopic Description (Verified) 05/09/2018 Sections of the endometrial biopsy reveals scant tiny fragments of endometrial epithelial lining mixed with endocervical epithelium and abundant mucus. No endometrial glands are present. Also presentis a small dilated benign endocervical gland. No intact endometrial glands or stroma is seen. The specimen is insufficient for evaluation of endometrial pathology. Diagnosis (Verified) Endometrium, biopsy: Limited specimen consisting of scant tiny fragments of endometrial epithelial lining, endocervical epithelial cells and abundant mucus. No cytologic atypia is identified. [2] Discussion with the patient included the preop and postop care of [Colpocleisis]. Discussed the potential extent of the procedure. Reviewed indication and alternatives to [Colpocleisis]. Disclosed the potential risks, complications and hazards including but not limited to pain, infection, excessive bleeding, damage to adjacent organs (major blood vessels, ureters, bladder, colon, bowels, ovaries), laparotomy or delayed major operations due to complications, thrombi and emboli, anesthetic, and possible . The patient understands all the above, has had all questions answered and wishes to undergo the operation. The plan is colpocleisis however her endometrium is thicker and we were unable to get any endometrial cells. Need hysteroscopy with bx before the colpocleisis Review of Systems Cardio Respiratory Heart Irregularity: No Shortness of Breath: No ENT Congestion: No Nasal drainage: No Sore throat: No Vertigo: No Gastrointestinal Abdominal Pain: No Bloating: No Change in bowel habits: No Reflux/heartburn: Yes Hematologic/Lymphatic Bleeding tendencies: No Bruising: No Thromboembolism: No Urinary Nocturia: Yes Painful urination: No Urgency: Yes Urinary frequency: Yes Urinary Incontinence: Yes Physical Exam Vitals & Measurements BP: 122/80 WT: 63.2 kg General: [Alert and oriented, well nourished, no acute distress]. Musculoskeletal: Normal range of motion and strength, no tenderness or swelling. Skin: Skin is warm, dry and pink, no rashes or lesions. Neurologic: Awake, alert, and oriented X3, CN II-XII intact. Psychiatric: Cooperative, appropriate mood and affect. External Genitalia: Normal urethral meatus, no lesions, vulvar skin intact. Genitourinary: Normal vaginal mucosa, no lesions or abnormal discharge, cervix intact without lesions or bleeding. Grade 3-4 prolapse of anterior vaginal wall and uterus, some posterior support Hysteroscopy/removal of pessary & replacement Patient was taken back to the procedure room where was positioned in dorsal lithotomy position prepped and draped in normal sterile manner. Patient was prepped before removal of pessary and then again after removal. After time-out a weighted speculum was placed in the vaginal vault the anterior lipof the cervix grasped with a single-tooth tenaculum. Uterus is sounded, cervix is serially dilated until a hysteroscope was able to be advanced. Hysteroscopy with saline as the medium is accomplishedwhich reveals the above findings once this is complete the hysteroscope is removed and the cervix was further dilated and a curette is advanced into the uterine cavity. Curettage is then performed eleazar pling all the quadrants of the uterus. At this point all instruments are removed once hemostasis isassured the procedure is ended. The pessary was cleansed and replaced. Assessment/Plan Incomplete uterine prolapse Midline cystocele Thickened endometrium Urinary incontinence, mixed Urinary urgency Planned surgery: Colpocleisis Pain meds: Additional concerns: Followup appt 2wks post op Post op recommendations 1. Important to stay ambulatory (walking) to prevent a DVT, pneumonia and/or constipation. 2. Use stool softeners such as Colace 100mg twice daily or Miralax if still taking pain medications. 3. No sex, tampons or douching until 6-8 weeks post op. 4. Continue to drink plenty of water. 5. No lifting, pushing or pulling greater than 10 pounds until cleared by physician. Patient to notify us if: -Constipation -Temperature >100 -Significant bleeding -Any other concerns Problem List/Past Medical History Ongoing Diabetes Incomplete uterine prolapse Midline cystocele Migraines Nocturia Osteopenia Pessary maintenance Urinary frequency Urinary incontinence, mixed Urinary urgency Uterine prolapse Historical Pancreatic cancer Procedure/Surgical History 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 Medications ALPRAZolam 0.25 mg oral tablet, 0.125 mg, 0.5 tabs, Oral, TID, PRN amitriptyline 10 mg oral tablet, 10 mg, 1 tabs, Oral, HS (at bedtime) atorvastatin 10 mg oral tablet, 10 mg, 1 tabs, Oral, Daily Cytotec 200 mcg oral tablet, See Instructions ibandronate 150 mg oral tablet, 150 mg, 1 tabs, Oral, qMonth Invokana 100 mg oral tablet, 300 mg, 3 tabs, Oral, Daily losartan 50 mg oral tablet, 50 mg, 1 tabs, Oral, Daily metFORMIN 500 mg oral tablet, 1000 mg, 2 tabs, Oral, BID propranolol 60 mg oral tablet, 60 mg, 1 tabs, Oral, BID Toradol, See Instructions Trimosan Valium 10 mg oral tablet, See Instructions Vitamin D3 Zofran ODT 8 mg oral tablet, disintegrating, See Instructions Allergies No Known Allergies Social History Alcohol Never Nutrition/Health Caffeine intake amount: 2-3 cups coffee in am. Sexual Sexually active: No. Substance Abuse Denies All Tobacco Former smoker Family History CAD - Coronary artery disease: Sibling. Colon cancer: Mother. Lung cancer: Father. Stroke 25-SEP-2016 18:11:53<$>: Child. Thyroid disease: Sibling. Diagnostic Results No qualifying data available. No qualifying data available. No qualifying data available. No qualifying data available. [1] Diana Mack PA-C, Binta Naylor 06/29/2018 13:19 EDT [2] Surgical Pathology Report; 05/09/2018 11:13 EDT Electronically signed by Kitty Johnson DO 08/11/18 17:08 EDT Electronically signed by Amira Mendieta 08/09/2018 15:31 EDTNoParkview Health Bryan HospitalHgb A1c on [id number] A1c/Hemoglobin.total mass fraction (Bld)177 mg/dLHigh 74-118[facility] Medical CenterComment on above:Result Comment: Mathematical Calc approx. The mean gluc equivalency of R9vCknpuvdfh By: #### UCI #### [address] [address]Zosnzpnjex A1c/Hemoglobin.total mass fraction (Bld)7.8 % A1c High4.0-6.0[facility]itan Medical CenterComment on above:Performed By: #### UCI #### [address] [address]Gbkxacoj Pathology Reporton [id number] Pathology Report Clinical Information Procedure: Hysteroscopy, dilatation and curettage. Pre-operative diagnosis: Thickened endometrium. SP Specimen A Endometrial tissue Gross Description Received in formalin labeled 'endometrial tissue' are two pieces of light ryo tissue measuring 0.1 and 0.2 cm. in greatest dimension as well as 1.0 cc. of translucent mucoid material. The specimen isentirely submitted in cassette A1. Microscopic Description Sections of the endometrial curettings reveal scant endometrial tissue mixed with mucus. The endometrial tissue shows rare tubular benign endometrial glands with surrounding benign endometrial stroma. No cytologic atypia is present. Also included are tiny fragments of benign endocervical epitheliumand mucus. The findings are suggestive of postmenopausal atrophic endometrium. Diagnosis Endometrial curettings: Scant endometrial tissue with rare benign tubular endometrial glands consistent with postmenopausal atrophic endometrium. No endometrial hyperplasia or cytologic atypia is identified. [id number] Theo Perez MD (Electronically signed by) Verified: 08/15/18 12:25NormalUniversity Hospitals Samaritan Medical CenterComment on above: Performed By: #### UCI #### [address] [address]Ticcgokwfk Patient Educationon [id number] Patient EducationPatient Education Materials Name: Charity Michelle Luke Current Date: 08/09/2018 15:05:45 [place] : 1940 The following sheet(s) are the Patient Education Leaflets for [facility] Managing Post-Op Pain at Home: Medicines Pain after an operation (post-op pain) is common and expected. These guidelines can help you stay as comfortable as possible. Taking pain medicines ? Take medicines on time. Do not take more than prescribed. ? Take only the medicines that your healthcare provider tells you to take. ? Take pain medicines with some food to avoid an upset stomach. ? Don't drink alcohol while using pain medicines. ? Do not drive while taking opioid pain medicines. Types of pain medicines Non-opioid ? Gzxy-usr-mmcxobg (such as acetaminophen and ibuprofen) or prescription ? All relieve mild to moderate pain and some reduce swelling ? Possible side effects include stomach upset and bleeding, high doses may cause kidney or liver problems ? Check with your healthcare provider before taking zcrf-xkm-zvezduk pain medicines in addition to your prescribed pain medicine Opioid ? Always a prescription ? Relieve moderate to severe pain ? Possible side effects include stomach upset, nausea, and itching ? May cause constipation (to help prevent this, eat high-fiber foods and drink plenty of water) ? Your healthcare provider may recommend a stool softener When to call your healthcare provider Call your healthcare provider or seek immediate attention if you notice any of these symptoms: ? Nausea, vomiting, diarrhea, lasting constipation, or stomach cramps ? Breathing problems or a fast heart rate ? Feeling very tired, sluggish, or dizzy ? Skin rash ? [id number] [employer]. [address] [place] [address]. All rights reserved. This information is not intended as a substitute for professional medical care. Always follow your healthcare professional's instructions. Managing Post-Op Pain at Home: Non-Medicine Relief Medicines are not the only way to manage pain after surgery. Try the following techniques. Visualization or guided imagery Visualization helps take your mind off the pain: ? Close your eyes. Breathe deeply. ? Picture yourself in a quiet, peaceful place. ? Imagine how you feel in that place. ? If other thoughts enter your mind, take a deep breath and try again. Progressive body relaxation Relaxation helps relieve stress and pain: ? Close your eyes. Clench your foot muscles. ? Hold for a few seconds. Release. ? Repeat with the muscles in your calves. ? Work slowly up your body, tensing and relaxing different muscle groups from your abdomen, chest, arms, neck, and face. Deep breathing Deep breathing relaxes your whole body: ? Inhale through your nose slowly and deeply. ? Hold your breath for a couple of seconds. ? Exhale through your mouth slowly and deeply. ? [id number] [employer]. [address] [place] [address], [place] [address]. All rights reserved. This information is not intended as a substitute for professional medical care. Always follow your healthcare professional's instructions. Postsurgery Checklist Follow-up care is an important part of a successful surgery. Your surgeon needs to see that you're healing and recovering well. Ask when to return for your first follow-up visit. After surgery, there are steps you can take to help with your recovery. You may have been admitted as an inpatient (staying in the hospital overnight) or an outpatient (going home the day of surgery). While in the hospital it is important to follow instructions from your surgeon, nurse, and other healthcare providers. This will help you be able to go home as soon as possible. Talk with the healthcare providers before leaving the hospital about help you may need at home. Once you are home, continue to rest, but also try to slowly get back to your normal activities. Call your surgeon if you have any questions about your recovery. In the hospital Managing pain ? You'll get medicine to control pain. You may be given medicine by mouth (oral), by injection, or into your vein (intravenous or IV). Or you may have WAX ROOM SUPERVISOR (patient-controlled analgesia). WAX ROOM SUPERVISOR allows you to control your own pain medicine. Follow your healthcare provider's instructions on how to use the WAX ROOM SUPERVISOR. ? Tell your nurse if the medicines don't help control your pain or if the pain gets worse. Preventing deep vein thrombosis (DVT) This is a condition in which a blood clot forms in a deep vein, often in the leg. Part of the clot may break loose and travel to the lungs. This is called a pulmonary embolism. It is a serious condition and may cause . People who have surgery have an increased chance of developing blood clots.So to prevent clots, your surgeon will prescribe one or more of the following: ? Blood thinner (anticoagulant) medicine. This is a blood thinner that helps to prevent blood clots. It may be given to you before or right after surgery. ? Compression stockings. These are elastic stockings that fit tightly around your legs. This helps keep blood flowing toward the heart, so that it is less likely to pool in the legs and cause a bloodclot. ? Getting out of bed and walking (ambulation). As soon as you're able, you'll be helped out of bed by your nurse. Moving around improves blood flow and helps prevent blood clots. ? Exercises. Simple exercises while in bed or sitting in a chair can help prevent blood clots. Moveyour feet in a shoalwater or up and down 10 to 30 times an hour to improve blood flow. ? Sequential compression device (SCD) or intermittent pneumatic compression (IPC). These are special sleeves that are placed around the legs. They are connected to an electric pump. The pump inflatesand deflates the sleeves. As the sleeves inflate, they gently squeeze the leg or foot muscles. Thishelps with blood flow and helps prevent blood clots. Remove the sleeves so that you do not trip or fall when you are walking, like when you use the bathroom or shower. If you need help removing the cuffs, ask the nurse or aid. Nausea and vomiting This is common after surgery. If you are having problems with nausea and vomiting, be sure to tell your nurse or surgeon. Preventing pneumonia To help clear your lungs and prevent pneumonia, you may be taught deep-breathing and coughing exercises. Follow your healthcare provider's instructions on how to do the exercises and how often to do them. Incision care The nurse will change the dressing over your incision. To help prevent germs from getting into the incision, avoid touching it. Before you go home, your nurse will teach you or a family member how totake care of your incision at home. Make sure you understand the instructions. Nurses may also helpyou with your incision care and other needs once you are home. The hospital nurses and other staff will help you set up care you may need after you leave the hospital. Blood tests After surgery, you'll likely have blood drawn. This is to make sure you're healing well and aren't developing problems, like infection, anemia, or high blood sugar (hyperglycemia). Urinary catheter During surgery, a tube (catheter) may have been inserted into your bladder to drain urine. Your surgeon will determine when the catheter can be removed. If you go home with the catheter in place, thenurse will teach you how to take care of the catheter at home. Be sure to ask any questions about catheter care before you leave the hospital. You may also get help from family members or home healthnurses. At home Here is what you can do at home: ? Pain management. Take your pain medicines as directed, before the pain becomes severe. Don't takemedicine more often than prescribed. Overdose is dangerous. Also don't take medicine less often than prescribed. This makes the medicine less effective. Taking pain medicine at night can help you sleep. ? Preventing blood clots and pneumonia. DVT and pneumonia can still occur even after you go home. Follow the discharge instructions you were given in the hospital. Some things you can do to prevent DVT may include continuing to wear compression stockings, using a sequential compression device (SCD)or intermittent pneumatic compression (IPC), or taking medicine. Make sure you removed the sleeves when you are up and walking. Some things you can do to prevent pneumonia may include keeping up withthe breathing and coughing exercises you learned in the hospital. ? Incision care. Follow instructions you received in the hospital about when it's safe to shower. Until then, keep the incision dry. Watch for signs of infection. Signs include increased redness, swelling, drainage from the incision, or a fever of 100.4?F (38?C) or higher, or as directed by your [facility] provider. ? Activity. At your follow-up visit, ask your surgeon when it's safe to return to your regular activities. Slowly get back to exercise and other activities. ? Returning to work. Going back to work depends on your surgery and the type of job you do. You andyour surgeon will decide when you can return to work. It's often 4 to 6 weeks after major surgery, and a few days after minor surgery. ? Driving. Do not drive until your surgeon tells you that you can. ? Get good nutrition. Healthy eating helps your body heal. If you had a special diet before surgery, ask your surgeon if you should stay on the same diet. Follow-up appointment My follow-up appointment is scheduled for: Call 911 Call 911 if you have the following symptoms that mean a blood clot in the lungs: ? Chest pain ? Trouble breathing ? Fast heartbeat ? Sweating ? Coughing (may cough up blood) ? Fainting Also call 911 if you have heavy or uncontrolled bleeding. When to call your healthcare provider Call your surgeon right away if you have any of the following: ? Pain, swelling, and redness in your leg or arm. These symptoms may mean a blood clot. ? Increased pain or pain that is not relieved with medicines ? Drainage, redness, or swelling around the incision ? Incision opens up (cover it with a clean dressing or cloth) ? Severe nausea and vomiting ? Fever of 100.4?F (38?C) or higher, or as directed by your healthcare provider ? 7938-7434 [employer]. [address] [place] [address]. All rights reserved. This information is not intended as a substitute for professional medical care. Always follow your healthcare professional's instructions. Preparing for Outpatient Surgery Be sure to have any tests your healthcare provider orders. You are scheduled for outpatient surgery. This is also called same-day or ambulatory surgery. This sheet gives you more information about how to prepare. If you have any questions or are unclear about any instructions, be sure to check with your surgeon. The weeks before surgery ? Have any tests as instructed. These help show that you are healthy enough for surgery. ? Tell your healthcare provider about all the medicines you take. This includes prescription medicines. It also includes lgdz-pgk-rxpffhy medicines, herbs, vitamins, and other supplements. Tell your provider if you take aspirin, ibuprofen, or medicine to prevent blood clots. You may need to stop taking some or all of these before surgery. ? Tell your provider if you have allergies to any medicines, medical products such as latex or tape, or foods. ? If instructed, call the surgical facility ahead of time. During this call, you may discuss how toregister and fill out needed forms. Preparing at home ? If you smoke, quit or smoke less. ? Arrange for an adult family member or friend to drive you home after surgery. ? If you have a cold, fever, sore throat, diarrhea, or other health problem, let your surgeon know.He or she can decide if the surgery must be delayed. ? If you can't keep your surgery appointment, let your surgeon and surgical facility know right away. ? The night before or morning of your surgery, wash the surgical area if instructed. Do not shave the area. If needed, hair may be trimmed or removed at the surgical facility. ? Follow any directions you are given for taking medicines and for not eating or drinking before surgery. Arriving for surgery ? Know when you need to arrive at the facility. Be on time. ? Leave valuables at home. ? Wear comfortable clothing. Don't wear makeup or perfume. ? Bring your insurance forms and card. If there is a copayment, bring a method to pay it. ? [id number] [employer]. [address] [place], [place] [id number]. All rights reserved. This information is not intended as a substitute for professional medical care. Always follow your healthcare professional's instructions. Presurgery Checklist You are scheduled to have surgery. The healthcare staff will try to make your stay comfortable. Usethe guidelines below to remind yourself what to do before surgery. Be sure to follow any specific pre-op instructions from your surgeon or nurse. Preparing for surgery ? If you are having abdominal surgery, ask what you need to do to clear your bowel. ? Tell your surgeon if you have allergies to any medicines, latex, or foods. ? Ask your surgeon if you might need a blood transfusion during surgery and if so, how to prepare for it. In some cases, you can donate blood before surgery. If needed, this blood can be given back (transfused) to you during or after surgery. ? Arrange for an adult family member or friend to drive you home after surgery. If possible, have someone ready to help you at home as you recover. ? Call the surgeon if you get a cold, fever, sore throat, diarrhea, or other health problem just before surgery. Your surgeon can decide whether or not to postpone the surgery. Medicines ? Tell your surgeon about all medicines you take, including prescription and uixx-iif-ckazdpc products such as herbal remedies and vitamins. Ask if you should continue taking them. ? If you take ibuprofen, naproxen, or blood thinners (anticoagulants) such as aspirin, clopidogrel,or warfarin, ask your surgeon whether you should stop taking them and how long before surgery you should stop. ? You may be told to take antibiotics just before surgery to prevent infection. If so, follow instructions carefully on how to take them. ? If you are told to take blood thinners to help prevent blood clots after surgery, be sure to follow the instructions on how to take them. Stop smoking If you smoke, healing may take longer. So at least 2 week(s) before surgery, stop smoking. Bathing or showering before surgery ? If instructed, wash with antibacterial soap. Afterward, do not use lotions, oils, or powders. ? If you are having surgery on the head, you may be asked to shampoo with antibacterial soap. Follow instructions for doing so. Do not remove hair from the surgery site Do not shave hair from the incision site, unless you are given specific instructions to do so. Usually, if hair needs to be removed, it will be done at the hospital right before surgery. Don't eat or drink ? Follow any directions you are given for not eating or drinking before surgery. If you don't follow instructions about when to stop eating and drinking, your procedure may be postponed or rescheduled for another day. This is a safety issue. ? You can brush your teeth and rinse your mouth, but don't swallow any water. Day of surgery ? Don't wear makeup. Don't use perfume, deodorant, or hairspray. Remove nail norwegian and artificial nails. ? Leave jewelry (including rings), watches, and other valuables at home. ? Be sure to bring health insurance cards or forms and a photo ID. ? Bring a list of your medicines (include the name, dose, how often you take them, and the time last dose was taken). ? Arrive on time at the hospital or surgery facility. ? [id number] [employer]. [address] [place] [address], [place] [address]. All rights reserved. This information is not intended as a substitute for professional medical care. Always follow your healthcare professional's instructions. Before Surgery: Preparing Your Home Practice using devices such as a long-handled shoehorn. You may want to make a few simple changes around the house before surgery. Make life easier and safer after surgery. Reduce household hazards now. Also, limit the amount of reaching and stair climbing you'll have to do. By planning ahead now, you'll have less to worry about during recovery. Make your home safe Tips for a safe home include the following: ? Stock up on canned and frozen foods. Store all supplies between hip and shoulder level. That way you can get to them without reaching or bending. ? Prepare a room on the main living level if you usually sleep upstairs. Or set things up so you have to go upstairs only once a day. ? supervisor bit and shank department clutter and remove throw rugs. ? Tape down electrical cords. Get special equipment Special equipment may help you have a safer and easier recovery. If pre-op training is offered, tryusing the devices before surgery. Some of the most helpful equipment is listed below: ? An elevated toilet seat ? A shower seat ? Handrails and grab bars to help you steady yourself ? A grasping device to pull on socks and shoes Arrange for help After your surgery, you won't be able to drive for the first few weeks. Perhaps a family member or friend can deliver groceries and help you run errands. If you live alone, ask someone to stay with you for a few days after surgery. ? [id number] [employer]. [address] [place] [address], [place] [address]. All rights reserved. This information is not intended as a substitute for professional medical care. Always follow your healthcare professional's instructions. Nutrition Nutrition After Surgery Some people feel a little nauseated after surgery. This is often due to medicines, dehydration, or simply the stress of surgery. Don't push yourself to eat. Listento your body and you'll know what to eat and when. If you were on a special diet (such as low-salt)before surgery, ask your healthcare provider if you should follow it during recovery. Special note: Be sure to follow any specific post-op instructions from your surgeon, nurse, or dietitian. Start slowly ? Start off with clear liquids and soup. They are easier to digest. ? Progress to a semisolid (soft) diet (mashed potatoes, applesauce, and gelatin) as you feel ready and can tolerate. ? Slowly move to solid food. Don't eat fatty, rich, or spicy foods at first. ? Eat smaller amounts, more often. Drink fluids ? It's normal to lose fluids during surgery. Rehydrating your system is important as it helps you feel better and balances the chemicals in your body called electrolytes. ? Unless told not to, drink at least 6 glasses of clear liquids (such as water, apple juice, or summer scottie) a day. You may want to avoid carbonated drinks or let them lose their fizz before drinking them. Good nutrition ? Good nutrition helps your body build and repair tissue and heal wounds. ? Eat a low-fat, high-protein diet or as directed by your healthcare provider. ? Whole grain cereal, and the protein in foods like fish and chicken may help repair tissue affected by surgery. ? [id number] [employer]. [address] [place] [address]. All rights reserved. This information is not intended as a substitute for professional medical care. Always follow your healthcare professional's instructions.[facility] Office/Clinic Noteon [id number] Office/Clinic NoteChief Complaint Pessary Check History of Present Illness Painful sex: No Vaginal dryness: No Vaginal itch/burning/odor: No Additional HPI details: 77 y/o pessary check. #7 ring with support and knob inserted on. Had a #6 but had incontinence and bladder still prolapsed. She did not notice much change in her symptoms since last visit. Did not have as large of bulge with larger pessary. No vaginal discharge/spotting/bleeding. She would like to proceed with surgical intervention. Review of Systems Cardio Respiratory Heart Irregularity: No Peripheral edema: No Shortness of Breath: No Gastrointestinal Abdominal Pain: No Bloating: No Change in bowel habits: No Reflux/heartburn: No Urinary Nocturia: No Painful urination: No Urgency: No Urinary frequency: No Urinary Incontinence: No Physical Exam Vitals & Measurements BP: 122/74 WT: 63.8 kg Lungs: [Clear to auscultation and percussion, non-labored respiration]. Heart: [Normal rate, regular rhythm, no murmur, gallop or edema]. Abdomen: [Soft, non-tender, non-distended, normal bowel sounds, no masses]. External Genitalia: [Normal urethral meatus, no lesions, vulvar skin intact]. Genitourinary: [Atrophic vaginal mucosa, no lesions or abnormal discharge, no bleeding]. A SIZE 7 RING WITH SUPPORT/KNOB PESSARY IS REMOVED AND CLEANED WITH HIBICLENS. A SPECULUM IS INSERTED AND THE VAGINA IS FLUSHED WITH STERILE WATER X 1. THE VAGINA IS INSPECTED. NO VAGINAL DISCHARGE, IRRITATION, OR ULCERATIONS ARE NOTED. PESSARY IS INSERTED USING TRIMOSAN. SHE TOLERATES THE PESSARY WELL. THERE ARE NO COMPLICATIONS. Additional Vitals No qualifying data available. Assessment/Plan 1. Pessary maintenance Pt tolerated pessary cleaning. She would like to proceed with colpocleisis at this time. We gave her Adriana's card and she is looking at being scheduled in July as she usually travels with her over Labor Day. She will call with any questions/problems prior to surgery. She will come backto sign consents/H+P with Dr. Johnson prior to surgery. 2. Incomplete uterine prolapse 3. Urinary frequency 4. Urinary incontinence, mixed 5. Urinary urgency 6. Midline cystocele Problem List/Past Medical History Ongoing Diabetes Incomplete uterine prolapse Midline cystocele Migraines Nocturia Osteopenia Pessary maintenance Urinary frequency Urinary incontinence, mixed Urinary urgency Uterine prolapse Historical Pancreatic cancer Procedure/Surgical History 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 Medications ALPRAZolam 0.25 mg oral tablet, 0.125 mg, 0.5 tabs, Oral, TID, PRN amitriptyline 10 mg oral tablet, 10 mg, 1 tabs, Oral, HS (at bedtime) atorvastatin 10 mg oral tablet, 10 mg, 1 tabs, Oral, Daily ibandronate 150 mg oral tablet, 150 mg, 1 tabs, Oral, qMonth Invokana 100 mg oral tablet, 300 mg, 3 tabs, Oral, Daily losartan 50 mg oral tablet, 50 mg, 1 tabs, Oral, Daily metFORMIN 500 mg oral tablet, 1000 mg, 2 tabs, Oral, BID propranolol 60 mg oral tablet, 60 mg, 1 tabs, Oral, BID Trimosan Vitamin D3 Allergies No Known Allergies Social History Alcohol Never Substance Abuse Denies All Tobacco Former smoker Family History CAD - Coronary artery disease: Sibling. Colon cancer: Mother. Lung cancer: Father. Stroke 25-SEP-2016 18:11:53<$>: Child. Thyroid disease: Sibling. Electronically signed by Binta Mack PA-C 06/29/18 13:45 [facility]/Clinic Noteon [id number] Office/Clinic Note Chief Complaint pessary fitting History of Present Illness Abnormal vaginal discharge: No Pelvic pain: No Vaginal itch/burning/odor: No 77 y/o here for pessary fitting. She had trial of #6 ring with support and knob with recurrent cystocele over pessary. She is going to try larger size-size 7 and 8 ring with support and knob here. She has been leaking urine since placement of pessary. She can feel bulge. Denies vaginal bleeding/discharge. Considered surgery at last appt, but decided to hold off to see if pessary helped her symptoms. Endometrial bx at last visit with scant tissue sample-benign. Review of Systems Cardio Respiratory Heart Irregularity: No Peripheral edema: No Shortness of Breath: No Gastrointestinal Abdominal Pain: No Bloating: No Change in bowel habits: No Reflux/heartburn: No Urinary Nocturia: No Painful urination: No Urgency: No Urinary frequency: No Urinary Incontinence: No Physical Exam Vitals & Measurements BP: 140/92 WT: 63.0 kg Lungs: [Clear to auscultation and percussion, non-labored respiration]. Heart: [Normal rate, regular rhythm, no murmur, gallop or edema]. Abdomen: [Soft, non-tender, non-distended, normal bowel sounds, no masses]. External Genitalia: [Normal urethral meatus, no lesions, vulvar skin intact]. Genitourinary: [Atrophic vaginal mucosa, no lesions or abnormal discharge, cervix intact without lesions or bleeding]. A SIZE 6 RING WITH SUPPORT/KNOB PESSARY IS REMOVED AND CLEANED WITH HIBICLENS. A SPECULUM IS INSERTED AND THE VAGINA IS FLUSHED WITH STERILE WATER X 1. THE VAGINA IS INSPECTED. NO VAGINAL DISCHARGE, IRRITATION, OR ULCERATIONS ARE NOTED. SIZE 7 RING WITH KNOB/SUPPORT PESSARY IS INSERTED USING TRIMOSAN. SHE TOLERATES THE PESSARY WELL. THERE ARE NO COMPLICATIONS. Additional Vitals BP Position/Location: Sitting Assessment/Plan 1. Uterine prolapse She will try the larger size pessary-size 7 and f/u 2 weeks for pessary check. She will call with any questions/problems prior to next appt. She is still considering surgical intervention-colpocliesis. 2. Nocturia 3. Urinary frequency 4. Urinary incontinence, mixed 5. Urinary urgency Problem List/Past Medical History Ongoing Diabetes Incomplete uterine prolapse Migraines Nocturia Osteopenia Urinary frequency Urinary incontinence, mixed Urinary urgency Uterine prolapse Historical Pancreatic cancer Procedure/Surgical History 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 Medications ALPRAZolam 0.25 mg oral tablet, 0.125 mg, 0.5 tabs, Oral, TID, PRN amitriptyline 10 mg oral tablet, 10 mg, 1 tabs, Oral, HS (at bedtime) atorvastatin 10 mg oral tablet, 10 mg, 1 tabs, Oral, Daily ibandronate 150 mg oral tablet, 150 mg, 1 tabs, Oral, qMonth Invokana 100 mg oral tablet, 300 mg, 3 tabs, Oral, Daily losartan 50 mg oral tablet, 50 mg, 1 tabs, Oral, Daily metFORMIN 500 mg oral tablet, 1000 mg, 2 tabs, Oral, BID propranolol 60 mg oral tablet, 60 mg, 1 tabs, Oral, BID Trimosan Vitamin D3 Allergies No Known Allergies Social History Alcohol Never Substance Abuse Denies All Tobacco Former smoker Family History CAD - Coronary artery disease: Sibling. Colon cancer: Mother. Lung cancer: Father. Stroke 25-SEP-2016 18:11:53<$>: Child. Thyroid disease: Sibling. Electronically signed by Binta Mack PA-C 06/15/18 16:36 EDT Reviewed pathology results with Dr. Johnson and she will perform hysteroscopy prior to colpocleisis if she decides to proceed with surgery for better evaluation of thickened lining. Electronically signed by Abelardo CRUZ Binta Sullivann 06/16/18 13:03 [facility] [id number] Office/Clinic Note Chief Complaint USN follow up History of Present Illness Pelvic pain: No Spotting: No Additional HPI details: 77 y/o USN f/u. Last visit c/o vag pressure, urinary incont with moving, frequency, urgency, nocturia x3. Has pessary. Want to try and keep pessary instead of surgery due to her high risk. USN showed lining at 12mm- we discussed need to further evaluate and discussed need for endometrial biopsy. Patient consented to do today. Review of Systems Gastrointestinal Abdominal Pain: No Bloating: No Change in bowel habits: No Reflux/heartburn: No Urinary Nocturia: Yes Painful urination: No Urgency: Yes Urinary frequency: Yes Urinary Incontinence: Yes Physical Exam Vitals & Measurements BP: 140/80 HT: 153 cm WT: 63.7 kg BMI: 27.21 Lungs: [Clear to auscultation and percussion, non-labored respiration]. Heart: [Normal rate, regular rhythm, no murmur, gallop or edema]. Abdomen: [Soft, non-tender, non-distended, normal bowel sounds, no masses]. External Genitalia: [Normal urethral meatus, no lesions, vulvar skin intact]. Genitourinary: Procedure:[Pessary was removed and cleansed. Normal vaginal mucosa, no lesions or abnormal discharge, cervix intact without lesions or bleeding and presents beyond the opening -Endometrial biopsy: cervix easily grasped, prepped with betadine and endometrial biopsy performed of a small amount of mucoid material - sounded to 8. Pessary was then replaced after the canal was examined however a new pessary with knob was used same size until we can order a different size. No cystocele or rectocele]. Additional Vitals No qualifying data available. Assessment/Plan Incomplete uterine prolapse Nocturia Thickened endometrium Await biopsy results Follow back up for pessary aditi with PA and biopsy results then likely put a new pessary in (larger) We had already tried donut Ordered: Pathology Tissue Request Urinary frequency Urinary incontinence, mixed Urinary urgency Problem List/Past Medical History Ongoing Diabetes Incomplete uterine prolapse Migraines Osteopenia Historical Pancreatic cancer Procedure/Surgical History 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 Medications ALPRAZolam 0.25 mg oral tablet, 0.125 mg, 0.5 tabs, Oral, TID, PRN amitriptyline 10 mg oral tablet, 10 mg, 1 tabs, Oral, HS (at bedtime) atorvastatin 10 mg oral tablet, 10 mg, 1 tabs, Oral, Daily ibandronate 150 mg oral tablet, 150 mg, 1 tabs, Oral, qMonth Invokana 100 mg oral tablet, 300 mg, 3 tabs, Oral, Daily losartan 50 mg oral tablet, 50 mg, 1 tabs, Oral, Daily metFORMIN 500 mg oral tablet, 1000 mg, 2 tabs, Oral, BID propranolol 60 mg oral tablet, 60 mg, 1 tabs, Oral, BID Trimosan Vitamin D3 Allergies No Known Allergies Social History Alcohol Never Substance Abuse Denies All Tobacco Former smoker Family History CAD - Coronary artery disease: Sibling. Colon cancer: Mother. Lung cancer: Father. Stroke 25-SEP-2016 18:11:53<$>: Child. Thyroid disease: Sibling. Diagnostic Results No qualifying data available. No qualifying data available. No qualifying data available. No qualifying data available. Electronically signed by Kitty Johnson DO 05/09/18 19:45 [facility] Surgical Pathology Reporton [id number] Pathology ReportClinical Information Procedure: Endometrial biopsy. Pre-operative diagnosis: Thickened endometrium. SP Specimen A Endometrial tissue Gross Description Received in formalin labeled 'endometrial tissue' is a probable piece of light roy tissue measuring0.4 x 0.1 x 0.1 cm. and 1.0 cc. of translucent mucoid material. The specimen is entirely submitted in cassette A1. Microscopic Description Sections of the endometrial biopsy reveals scant tiny fragments of endometrial epithelial lining mixed with endocervical epithelium and abundant mucus. No endometrial glands are present. Also presentis a small dilated benign endocervical gland. No intact endometrial glands or stroma is seen. The specimen is insufficient for evaluation of endometrial pathology. Diagnosis Endometrium, biopsy: Limited specimen consisting of scant tiny fragments of endometrial epithelial lining, endocervical epithelial cells and abundant mucus. No cytologic atypia is identified. [id number] Theo Perez MD (Electronically signed by) Verified: 05/11/18 12:36[facility] WestComment on above: Performed By: #### SPR #### [facility] (DEFAULT) [address] [place], [place] [address]J Urineon 04-06-2018 UrineOrder added by Discern rule. Final 30-50,000 cfu/ml Escherichia coli isolated ORGANISM EC SUSCEPTIBILITY ORGANISM ID: 1 ANTIBIOTIC INTERPRETATION ALISSA STATUS POS Escherichia coli Amikacin S <=2 V Ampicillin S 4 V Ampicillin/Sulbactam S <=2 V Cefazolin S <=4 V Ciprofloxacin S <=0.25 V Ceftriaxone S <=1 V Nitrofurantoin S <=16 V Cefepime S <=1 V Cefoxitin S <=4 V Gentamicin S <=1 V Meropenem S <=0.25 V Levofloxacin S <=0.12 V Tobramycin S <=1 V Piperacillin/Tazobactam S <=4 V Trimethoprim/Sulfa S <=20 V Ceftazidime S <=1 VNormalUniversity Hospitals Samaritan Medical CenterComment on above: Performed By: #### UR #### [facility] (DEFAULT) [address] [place] [address] [address].UA Microscp Aon [id number] RBC Quant2 /HPFNormal0-5BAdena Health SystemComment on above:Performed By: #### [id number] #### [address] [address]PB Squepi Cells Quant1 /HPFNormal0-29[facility] Samaritan Medical CenterComment on above:Performed By: #### [id number] #### [address] [id number] WBC Quant16 /HPFHigh0-5BAdena Health SystemComment on above:Performed By: #### [id number] #### [address] [address]Jsrhcnpway Office/Clinic Noteon [id number] Office/Clinic NoteChief Complaint Prolapse/referred by Kaylen Mederos. History of Present Illness Abnormal vaginal discharge: No Breast lumps/pain: No Hot flashes: No Night sweats: No Pelvic pain: No Vaginal dryness: No Vaginal itch/burning/odor: No Additional HPI details: 77y/o prolapse. Currently has a pessary but is not helping with sx. C/o bulge going around the pessary-currently size 6 ring with support. C/o vaginal pressure. C/o urinary incontinence with moving around, frequency, urgency, nocturia x 3. Pt would prefer pessary re-sizing if possible and no surgery. She will leave the office from pessary cleaning and will be prolapsing again around the pessary by the time she gets home. Wears pads daily. Midline abdominal incision from pancreatic cancer. No chemo/XRT. Review of Systems Head Headaches: No Migraines: No Cardio Respiratory Heart Irregularity: No Peripheral edema: No Shortness of Breath: No Endocrine Abnormal weight gain: No Abnormal weight loss: No Fatigue1: No ENT Congestion: No Nasal drainage: No Sore throat: No Vertigo: No Eyes Blurred vision: No Corrective lenses: Yes Gastrointestinal Abdominal Pain: No Bloating: No Change in bowel habits: No Reflux/heartburn: No Hematologic/Lymphatic Bleeding tendencies: No Bruising: No Integumentary Acne: No Hair changes: No Lesions: No Moles: No Musculoskeletal Back pain: No Joint pain: No Muscle aches: No Psycho Social Anxiety: No Depression: No Homicidal Ideation: No Sleep Problems: No Suicidal Ideation: No Urinary Nocturia: Yes Painful urination: No Urgency: Yes Urinary frequency: Yes Urinary Incontinence: Yes Physical Exam General: [Alert and oriented, well nourished, no acute distress]. Eye: [PERRL, EOMI, normal conjunctiva]. HEENT: [Normocephalic, clear tympanic membranes, normal hearing, moist oral mucosa, no scleral icterus, no sinus tenderness]. Neck: [Supple, non-tender, no carotid bruits, no JVD, no lymphadenopathy]. Lungs: [Clear to auscultation and percussion, non-labored respiration]. Heart: [Normal rate, regular rhythm, no murmur, gallop or edema]. Abdomen: [Soft, non-tender, non-distended, normal bowel sounds, no masses]. Musculoskeletal: [Normal range of motion and strength, no tenderness or swelling]. Skin: [Skin is warm, dry and pink, no rashes or lesions]. Neurologic: [Awake, alert, and oriented X3, CN II-XII intact]. Psychiatric: [Cooperative, appropriate mood and affect]. Breast exam: [No fibrocystic changes noted bilaterally, no masses, tenderness, skin changes or nipple discharge]. External Genitalia: [Normal urethral meatus, no lesions, vulvar skin intact]. Genitourinary: [Atrophic vaginal mucosa, no lesions or abnormal discharge, cervix intact without lesions or bleeding. Anterior defect Gd 3-4]. Bimanual exam: [Normal sized, non-tender, mobile uterus. No adnexal tenderness or masses]. The patient presented today for a pessary fitting. Patient had a cystocele, a rectocele, uterine prolapse, and a vaginal vault prolapse. The procedure was explained to her and then she was placed in a dorsal lithotomy position. A number 3 1/4 doughnut pessary was inserted and appeared to be the appropriate size. The patient ambulated and valsalvated. The patient had no control of her urine and the pessary was very difficult to remove due to her deep but narrow pelvis ( even with deflating the donut with a needle). Her current pessary was replaced and we discussed surgical options that would correct the prolapse such as an obliterative surgery. Info on the LeFort colpocleisis was given - a sling could be performed at the same time by a urologist to assist with her incontinence. The patient was instructed on appropriate placement and removal of the pessary. She was instructed on the use of trimosan for 2 day(s) a week. She is to schedule a follow-up exam in 1 week. She is then to schedule follow-up exam in one month and then every 3-4 months after. Additional Vitals No qualifying data available. Assessment/Plan Incomplete uterine prolapse She would like to try pessary at this time. Did discuss surgical intervention and she will consider. She will call with any questions/problems prior to next appt. We discuss in detail options and discussed a safer surgical options would be an obliterative type of surgery such as a LeFort colpocleisis and possibly a sling. We would leave the uterus in place as long as a pap and usn are normal. This could be done under general or spinal. Problem List/Past Medical History Ongoing Diabetes Migraines Osteopenia Historical Pancreatic cancer Procedure/Surgical History 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 Medications ALPRAZolam 0.25 mg oral tablet, 0.125 mg, 0.5 tabs, Oral, TID, PRN amitriptyline 10 mg oral tablet, 10 mg, 1 tabs, Oral, HS (at bedtime) atorvastatin 10 mg oral tablet, 10 mg, 1 tabs, Oral, Daily ibandronate 150 mg oral tablet, 150 mg, 1 tabs, Oral, qMonth Invokana 100 mg oral tablet, 100 mg, 1 tabs, Oral, Daily losartan 50 mg oral tablet, 50 mg, 1 tabs, Oral, Daily metFORMIN 500 mg oral tablet, 1000 mg, 2 tabs, Oral, BID propranolol 60 mg oral tablet, 60 mg, 1 tabs, Oral, BID Trimosan Vitamin D3 Allergies No Known Allergies Social History Alcohol Never Substance Abuse Denies All Tobacco Former smoker Family History CAD - Coronary artery disease: Sibling. Colon cancer: Mother. Lung cancer: Father. Stroke 25-SEP-2016 18:11:53<$>: Child. Thyroid disease: Sibling. Electronically signed by Kitty Johnson DO 04/07/18 17:49 EDTNoParkview Health Bryan HospitalUA w Culture if Indon [id number] Nom (U)StrawNormMercy HealthComment on above:Performed By: #### UCI #### [address], [place] [address]Ixibkwh mass conc (U)mg/dLAbnormalNegUniversity Hospitals Health SystemComment on above:Performed By: #### UCI #### [address], [place] [address]Udgsrfb Ql (U)NegativeNormokNegUniversity Hospitals Health SystemComment on above:Performed By: #### UCI #### [address], [place] [address]KR BloodNegativeNormokNegUniversity Hospitals Health System Comment on above:Performed By: #### UCI #### [address], [place] [address]DB ClarityClearNormMercy HealthComment on above:Performed By: #### UCI #### [address], [place] [address]NC Leukocyte EsteraseLargeAbnoOhioHealth Nelsonville Health CenterComment on above:Performed By: #### UCI #### [address], [place] [address]FG NitriteNegativeNolifecare hospitals of north carolinaNegUniversity Hospitals Health System Comment on above:Performed By: #### UCI #### [address], [place] [address]AZ pH7.9Fepzsh9.5 - 7.8BAdena Health SystemComment on above:Performed By: #### UCI #### [address], [place] [address]KT ProteinNegativeNormalNegativeUniversity Hospitals Samaritan Medical Center Comment on above:Performed By: #### UCI #### [address], [place] [address]WM SourceClean CatchNormalUniversity Hospitals Samaritan Medical CenterComment on above:Performed By: #### UCI #### [address], [place] [address]VJ Spec Grav1.903Ocrasc8.003-1.035University Hospitals Samaritan Medical CenterComment on above:Performed By: #### UCI #### [address], [place] [address]MN Urobilinogen0.2 mg/dLNormal0.2 - 1.0[facility] Samaritan Medical CenterComment on above:Performed By: #### UCI #### [address], [place] [address]Opoikkpxkqoi Qn (U)NegativeNormalNegUniversity Hospitals Health SystemComment on above:Performed By: #### UCI #### [address] [place] [address] Vital Signs Date TimeVital SignValuePerforming XurvtrqyxSjyifjev84-83-6995 11:40-0500Body .4 cmSst. [facility] Kian SANTIAGON-SUPERVISOR CD AREA-C Work Phone: [facility]11-05-2025 11:40-0500 Body mass index (BMI) [Ratio]27.3 kg/q8LilyrLauren Langston APRN-SUPERVISOR CD AREA-C Work Phone: [facility]11-05-2025 11:40-0500 Body .5 kgLauren Langston APRN-SUPERVISOR CD AREA-C Work Phone: 1([phone])394-[address] [place], [place] [address]11-05-2025 11:40-0500 Diastolic blood zevlwvyz20 mm[Hg]Lauren Langston APRN-SUPERVISOR CD AREA-C Work Phone: 1(568)170-[address] [place], [place] [address]11-05-2025 11:40-0500 Heart rate67 /Betito Langston TITLE I TEACHER-SUPERVISOR CD AREA-C Work Phone: 1(418)900-[address] [place], [place] [address]11-05-2025 11:40-0500 Respiratory rate18 /Betito Langston TITLE I TEACHER-SUPERVISOR CD AREA-C Work Phone: 1(653)431-[address] [place], [place] [address]11-05-2025 11:40-0500 SaO2% (BldA) [Mass fraction]98 %Lauren Langston APRN-SUPERVISOR CD AREA-C Work Phone: [phone])310-[address] [place], [place] [address]11-05-2025 11:40-0500 Systolic blood xopqdxwl801 mm[Hg]aLuren Langston APRN-SUPERVISOR CD AREA-C Work Phone: [phone])337-[address] [place], [place] [address]10-30-2025 15:14-0400 Body xouvbg457.4 cmLeanne Lia DO Work Phone: [phone]-[facility] HospitalNiyjprbvzf97-30-2307 15:14-0400Body mass index (BMI) [Ratio]28.71 kg/x0Icxbzr Lia DO Work Phone: [facility] HospitalRidvydqgic57-49-6427 15:14-0400Body eoyubq01.68 kgLeanne Lia DO Work Phone: [facility] HospitalDdpqifcors51-92-4972 15:14-0400Diastolic blood myxfppsq843 mm[Hg]Evita Lia DO Work Phone: [facility] HospitalYwyhqgfqce04-46-1279 15:14-0400Heart rate74 /min Evita Lia DO Work Phone: [facility] HospitalIqdrdsjgyu41-96-6468 15:14-4734YiY6% (BldA) [Mass fraction]93 %Evita Lia DO Work Phone: [facility] HospitalCprvdkztwl31-08-9070 15:14-0400Systolic blood hdwdvcdy892 mm[Hg]Evita Lia DO Work Phone: [facility] HospitalIqrcmojpcz72-84-3750 11:12-0400Body qlcmri261.4 Monique Joshi MD Work Phone: [facility] HospitalRfomicqwsn69-36-5996 11:12-0400Body mass index (BMI) [Ratio]27.54 kg/x0UjgaoDuc Joshi MD Work Phone: [phone] [place], [place] [address]Davontevvq72-25-4504 11:12-0400Body odxpxg71.96 kgDuc Joshi MD Work Phone: [phone])[facility] [place], [place] [address]Hwvxwvjghy62-20-7069 11:12-0400Diastolic blood klgzogph14 mm[Hg]Duc Joshi MD Work Phone: 1(505)644-[address] [place], [place] [address]Frhccnxvoo40-25-6378 11:12-0400Heart rate65 /min Duc Joshi MD Work Phone: [phone])588-[address] [place], [place] [address]Pmsflxgilt16-94-3119 11:12-0400Respiratory rate16 /minDuc Joshi MD Work Phone: [phone])[facility] [place], [place] [address]Qdgrxzjcxj53-89-7191 11:12-3058QmT2% (BldA) [Mass fraction]97 %Duc Joshi MD Work Phone: [phone])004-[address] [place], [place] [address]Gqkzulqrao37-77-3285 11:12-0400Systolic blood ryikvlfs492 mm[Hg]Duc Joshi MD Work Phone: [address] [place], [place] [address]Jpamzpraiv75-70-4855 13:56-0400Body zbjcdi103.4 cmLannettenader Fitzgerald DO Work Phone: [facility] HospitalTqcirjohpe84-75-8672 13:56-0400Body mass index (BMI) [Ratio]26.37 kg/r6Xzahhbleonor Fitzgerald DO Work Phone: [facility] HospitalZuinhsbwcd12-12-1911 13:56-0400Body sxunah70.24 kgLeanne Lia DO Work Phone: [facility] HospitalQkzvrnwfog01-82-5597 13:56-0400Diastolic blood cdaqivoc55 mm[Hg]Evita Lia DO Work Phone: [place] [address]Xkxwnlyuat01-80-8604 13:56-0400Heart rate67 /min Evita Lia DO Work Phone: [phone])872-[facility] HospitalJiyjqkfxca41-11-1852 13:56-5275YzY0% (BldA) [Mass fraction]97 %Evita Lia DO Work Phone: 1(625)675-[facility] HospitalSaint [facility] HospitalYynfamnsap48-09-4071 13:56-0400Systolic blood edbogvvr108 mm[Hg]Evita Lia DO Work Phone: [facility] HospitalEgldrycrkx56-10-8458 13:00-0400Body mass index (BMI) [Ratio]26.95 kg/u6Hbkpaq Lia DO Work Phone: 1(260)418-[address] [place], [place] [address]Acjzslzepa77-50-8767 13:00-0400Body .6 kg Evita Lia DO Work Phone: [facility] HospitalOhnomlhmvd77-03-7075 13:00-0400Diastolic blood gyrfnrid43 mm[Hg]Evita Lia DO Work Phone: [facility] HospitalMferhwldzs45-67-0122 13:00-0400Heart rate61 /min Evita Lia DO Work Phone: [phone])766-[facility] HospitalSaint [facility] HospitalYajnidpuqr10-83-5438 13:00-0174RrH1% (BldA) [Mass fraction]97 %Evita Lia DO Work Phone: [facility] HospitalLsdaccpslo62-96-2893 13:00-0400Systolic blood howhuasx941 mm[Hg]Evita Lia DO Work Phone: [facility] HospitalYjmiluspnu52-51-6191 11:22-0400Body akkfvh359.4 Monique Joshi MD Work Phone: [facility] HospitalYwcpkhwelc92-66-9354 11:22-0400Body mass index (BMI) [Ratio]26.95 kg/m3DfitkDuc Joshi MD Work Phone: 1(285)380-[address] [place], [place] [address]Flnefxncso35-98-8490 11:22-0400Body gzcpob04.6 kg Duc Joshi MD Work Phone: 1([phone])628-[address] [place], [place] [address]Bsxpvjqjms95-47-4968 11:22-0400Diastolic blood lqfzkezo16 mm[Hg]Duc Joshi MD Work Phone: 1(755)296-[address] [place], [place] [address]Eecnovfnhd76-91-7216 11:22-0400Heart rate59 /min Duc Joshi MD Work Phone: 1(355)003-[address] [place], [place] [address]Jwpwzoptcj86-12-7963 11:22-0400Respiratory rate16 /minDuc Joshi MD Work Phone: 1(870)[address] [place], [place] [address]305-13-2025 11:22-0744NzG3% (BldA) [Mass fraction]97 %Duc Joshi MD Work Phone: 1(510)336-[address] [place], [place] [address]Noaslbsiwo37-90-1839 11:22-0400Systolic blood qojtcejg074 mm[Hg]Duc Joshi MD Work Phone: 1([phone])660-[address] [place], [place] [address]Pdlknxiywi94-73-9600 09:00-0400Body lolztb621.4 cmLeannnader Lia DO Work Phone: [phone])975-[facility] HospitalSrehimztrs56-66-6802 09:00-0400Body mass index (BMI) [Ratio]25.78 kg/n5Ltoals Lia DO Work Phone: 1(620)174-[facility] HospitalNalrvkkrbr21-84-2927 09:00-0400Body yuxlna40.88 kgLeanne Lia DO Work Phone: [place] [address]Sgwxcijlnj93-45-3798 09:00-0400Diastolic blood evqllrcc95 mm[Hg]Evita Lia DO Work Phone: [place] [address]Tmsxtlzycc17-77-9133 09:00-0400Heart rate58 /min Evita Lia DO Work Phone: [place] [address]Znobfepkcn85-55-2710 09:00-9772LsX4% (BldA) [Mass fraction]98 %Evita Lia DO Work Phone: [facility] HospitalVfjjotofgl11-49-5559 09:00-0400Systolic blood ypyqxybm795 mm[Hg]Evita Lia DO Work Phone: [facility] HospitalMojwpcsmcy51-55-6391 11:20-0500Body arcwik922.4 Monique Joshi MD Work Phone: [facility] HospitalWtohnrhgsc15-62-4730 11:20-0500Body mass index (BMI) [Ratio]26.37 kg/y2NuidtDuc Joshi MD Work Phone: [facility] HospitalNvlfukzivh72-82-8482 11:20-0500Body .24 kgDuc Joshi MD Work Phone: [facility] HospitalCiytipcvql87-87-8100 11:20-0500Diastolic blood kqmvsiwf41 mm[Hg]Duc Joshi MD Work Phone: [address] [place], [place] [address]Jdhrokctyv32-59-2965 11:20-0500Heart rate56 /min Duc Joshi MD Work Phone: [facility] HospitalBscrfrlysr11-25-0206 11:20-0500Respiratory rate16 /minDuc Joshi MD Work Phone: [facility] HospitalXidtaqxaay68-18-4488 11:20-0500Systolic blood rjdijzoy514 mm[Hg]Duc Joshi MD Work Phone: [address] [place], [place] [address]Pwuwaupncc36-81-0565 14:00-0400Blood Pressure LocationMariann Morfin [facility]07-24-20[facility] 14:00-0400Body ovddxddxaps42.24 [degF]Mariann Morfin [facility]07-24-2024 14:00-0400 Diastolic blood ztfkvukz50 mm[Hg]Mariann Morfin [facility]07-24-2024 14:00-0400Heart rate79 /minJacinta Robenstine [address] [place], [place] 9453307-24-2024 14:00-0400Mean blood yskpbdzy15 mm[Hg]Mariann Robenstine [address] [place], [place] 9453307-24-2024 14:00-0400 Respiratory rate16 /minJacinta Robenstine [address] [place], [place] 9453307-24-2024 14:00-9790CeN6% (BldA) [Mass fraction]95 %Mariann Robenstine [address] [place], [place] 9453307-24-2024 14:00-0400 Systolic blood ivrtpize728 mm[Hg]Mariann Robenstine [address] [place], [place] 9453307-24-2024 08:53-0400 Hourly RoundingTylercinta Robenstine [address] [place], [place] 9453307-24-2024 08:53-0400 Promise to ReturnJacinta Robenstine [address] [place], [place] 9453307-24-2024 08:29-0400Heart rate71 /minJacinta Robenstine [address] [place], [place] 9453307-24-2024 08:29-9985BeF6% (BldA) [Mass fraction]96 %Mariann Robenstine [address] [place], [place] 9453307-24-2024 08:28-0400Body vqxqykzpkeh42.88 [degF]Mariann Robenstine [address] [place], [place] 9453307-24-2024 08:28-0400 Diastolic blood bpqlqazw78 mm[Hg]Mariann Robenstine [address] [place], [place] 9453307-24-2024 08:28-0400Mean blood cyxldvmh381 mm[Hg]Mariann Robenstine [address] [place], [place] 9453307-24-2024 08:28-0400 Systolic blood elcpjbnh131 mm[Hg]Mariann Robenstine [address] [place], [place] 9453307-24-2024 07:53-0400 Hourly RoundingJacinta Robenstine [address] [place], [place] 9453307-24-2024 07:53-0400 Promise to ReturnJacinta Robenstine [address] [place], [place] 9453307-24-2024 06:54-0400 Hourly RoundingJacinta Robenstine [address] [place], [place] 9453307-24-2024 06:54-0400 Promise to ReturnJacinta Robenstine [address] [place], [place] 9453307-23-2024 23:15-0400Blood Pressure LocationJacinta Robenstine [address] [place], [place] 9453307-23-2024 23:15-0400 Diastolic blood mm[Hg]Mariann Robenstine [address] [place], [place] 9453307-23-2024 23:15-0400Mean blood zuhfbdfg72 mm[Hg]Mariann Robenstine [address] [place], [place] 9453307-23-2024 23:15-0400 Systolic blood ujxmtuyo385 mm[Hg]Mariann Robenstine [address] [place], [place] 9453307-23-2024 20:30-0400Heart rate78 /minJacinta Robenstine [address] [place], [place] 9453307-23-2024 19:27-0400Heart rate76 /minJacinta Robenstine [address] [place], [place] 9453307-23-2024 19:27-6499TkO9% (BldA) [Mass fraction]97 %Mariann Robenstine [address] [place], [place] 9453307-23-2024 19:27-0400Body gawatijiyir90.52 [degF]Mariann Robenstine [address] [place], [place] 9453307-23-2024 19:26-0400Mean blood moqszvcq001 mm[Hg]Mariann Robenstine [address] [place], [place] 9453307-23-2024 15:34-0400 Respiratory rate18 /minJacinta Robenstine [address] [place], [place] 9453307-23-2024 15:33-0400Body xfuctrbdphk26.34 [degF]Mariann Robenstine [address] [place], [place] 9453307-23-2024 15:31-0400Mean blood wnpvovdd73 mm[Hg]Mariann Robenstine [address] [place], [place] 9453307-23-2024 10:08-0400Blood Pressure LocationJacinta Robenstine [address] [place], [place] 9453307-23-2024 10:08-0400Mean blood dpkitkxz80 mm[Hg]Mariann Robenstine [address] [place], [place] 9453307-23-2024 10:08-0400 Respiratory rate16 /minJacinta Robenstine [address] [place], [place] 9453307-23-2024 04:00-0400Body xnzohyslyzg71.7 [degF]Mariann Robenstine [address] [place], [place] 9453307-22-2024 18:02-0400gluc 222 mg/dLJacinta Robenstine [address] [place], [place] 9453307-22-2024 11:59-0400gluc 124 mg/dLJacinta Robenstine [address] [place], [place] 9453307-22-2024 05:50-0400Body hdxzebzmdhr14.24 [degF]Mariann Robenstine [address] [place], [place] 9453307-21-2024 23:36-0400Heart rate81 /minJacinta Robenstine [address] [place], [place] 9453307-21-2024 22:00-0400 Respiratory rate15 /minJacinta Robenstine [address] [place], [place] 9453307-21-2024 21:00-0400 Respiratory rate16 /minJacinta Robenstine [address] [place], [place] 9453307-21-2024 20:00-0400 Respiratory rate19 /minJacinta Robenstine [address] [place], [place] 9453307-21-2024 18:06-0400Heart rate68 /minJacinta Robenstine [address] [place], [place] 9453307-21-2024 17:00-0400Heart rate76 /minJacinta Robenstine [address] [place], [place] 9453307-21-2024 12:54-0400 Hourly RoundingJacinta Robenstine [address] [place], [place] 9453307-21-2024 12:54-0400 Promise to ReturnJacinta Robenstine [address] [place], [place] 9453307-21-2024 12:24-0400gluc 109 mg/dLJacinta Robenstine [address] [place], [place] 9453307-21-2024 12:20-0400 Hourly RoundingJacinta Robenstine [address] [place], [place] 9453307-21-2024 12:00-0400Body .52 [degF]Mariann Robenstine [address] [place], [place] 9453307-21-2024 12:00-0400 Diastolic blood iypzuycp06 mm[Hg]Mariann Robenstine [address] [place], [place] 9453307-21-2024 12:00-0400Heart rate69 /minJacinta Robenstine [address] [place], [place] 9453307-21-2024 12:00-2435GuV5% (BldA) [Mass fraction]99 %Mariann Robenstine [address] [place], [place] 9453307-21-2024 12:00-0400 Systolic blood mm[Hg]Mariann Robenstine [address] [place], [place] 9453307-21-2024 11:54-0400 Hourly RoundingJacinta Robenstine [address] [place], [place] 9453307-21-2024 11:54-0400 Promise to ReturnJacinta Robenstine [address] [place], [place] 9453307-21-2024 10:07-0400 Promise to ReturnJacinta Robenstine [address] [place], [place] 9453307-21-2024 07:00-0400Body lsnvipvsjje84.16 [degF]Mariann Robenstine [address] [place], [place] 9453307-21-2024 07:00-0400 Diastolic blood vncyxdlb55 mm[Hg]Mariann Robenstine [address] [place], [place] 9453307-21-2024 07:00-0400gluc 144 mg/dLJacinta Robenstine [address] [place], [place] 9255307-21-2024 07:00-0400Heart rate63 /minJacinta Robenstine [address] [place], [place] 9453307-21-2024 07:00-0646KgB1% (BldA) [Mass fraction]98 %Mariann Robenstine [address] [place], [place] 9453307-21-2024 07:00-0400 Systolic blood pidumvei125 mm[Hg]Mariann Robenstine [address] [place], [place] 9453307-21-2024 00:05-0400Body hrbmvtpoerc80.52 [degF]Mariann Robenstine [address] [place], [place] 9453307-21-2024 00:05-0400 Diastolic blood hkhldeua66 mm[Hg]Mariann Robenstine [address] [place], [place] 9453307-21-2024 00:05-0400Heart rate61 /minJacinta Robenstine [address] [place], [place] 9453307-21-2024 00:05-0400 Respiratory rate16 /minJacinta Robenstine [address] [place], [place] 9453307-21-2024 00:05-6991FcI4% (BldA) [Mass fraction]97 %Mariann Robenstine [address] [place], [place] 9453307-21-2024 00:05-0400 Systolic blood jteduaxi764 mm[Hg]Mariann Robenstine [address] [place], [place] 9453307-20-2024 19:45-0400Body bstzbnmnjjy75.34 [degF]Mariann Robenstine [address] [place], [place] 9453307-20-2024 19:45-0400Mean blood tzolkmnp904 mm[Hg]Mariann Robenstine [address] [place], [place] 9453307-20-2024 19:00-0400Blood Pressure LocationJacinta Robenstine [address] [place], [place] 9453307-20-2024 16:35-0400Heart rate70 /minJacinta Robenstine [address] [place], [place] 9453307-20-2024 12:17-0400Heart rate74 /minJacinta Robenstine [address] [place], [place] 9453307-20-2024 11:38-0400Mean blood miaaalsk707 mm[Hg]Mariann Robenstine [address] [place], [place] 9453307-20-2024 00:03-0400 Respiratory rate16 /minJacinta Alexenstine [facility]07-19-2024 20:00-0400Blood Pressure LocationJacinta Robenstine [address]07-19-2024 17:12-0400Mean blood gikulhgw04 mm[Hg]Mariann Robenstine [address]07-19-2024 17:10-0400Body yujazbbdghs54.88 [degF]Mariann Robenstine [address]07-19-2024 10:47-0400Body hglxvublwhf54.52 [degF]Mariann Robenstine [facility]07-19-2024 10:47-0400Mean blood roijrkcg658 mm[Hg]Mariann Robenstine [address]07-19-2024 00:45-0400Mean blood hntrpzek89 mm[Hg]Mariann Robenstine [facility]07-18-2024 18:22-0400Mean blood dtvodxxa008 mm[Hg]Mariann Robenstine [facility]07-18-2024 15:14-0400Heart rate81 /minJacobota Sebastiantine [address] [place], [place] 9255302-07-2024 14:00-0500Body ftrzdofylqs62.5 [degF]Ash Pearl MD Work Phone: 1(221) [phone]sWvafan34-40-4358 14:00-0500Diastolic blood lgiavlhd06 mm[Hg]Ash Pearl MD Work Phone: 1(908) [phone]73360VnthoTuzxvm65-07-1089 14:00-0500Heart rate66 /min Ash Pearl MD Work Phone: 1(792) [phone]523HgizcYkbzny80-48-2318 14:00-0500Respiratory rate18 /minAsh Pearl MD Work Phone: 1(758) [phone]1YqrprNmuvdx22-02-2421 14:00-2392IuU2% (BldA) [Mass fraction]98 %Ash Pearl MD Work Phone: 1(274) [phone]jKotdbk51-91-4621 14:00-0500Systolic blood frmwosyg931 mm[Hg]Ash Pearl MD Work Phone: [phone]stmeKffunq91-23-8180 05:00-0500Body licayr078.4 cm Ash Pearl MD Work Phone: 1(310) [phone]ltujJppfcu56-73-5315 05:00-0500Body mass index (BMI) [Ratio]26.23 kg/y9EkkqmiAsh Pearl MD Work Phone: 1(535) [phone]cYwieew89-17-7528 05:00-0500Body vqgdpa53.92 kg Ash Pearl MD Work Phone: 1(331) [phone]ZwfznIbovip54-16-6873 11:30-0500Diastolic blood fagvemps45 mm[Hg]Brooks Sun [address] [place], [place] 1615401-16-2024 11:30-0500Heart rate68 /minBrooks Sun [address] [place], [place] 1615401-16-2024 11:30-0500Mean blood tvjmwhno15 mm[Hg]Brooks Sun [address] [place], [place] 1615401-16-2024 11:30-0500 Respiratory rate19 /minJoveronica Sun [address] [place], [place] 1615401-16-2024 11:30-1936CoM5% (BldA) [Mass fraction]98 %Brooks Sun [address] [place], [place] 1615401-16-2024 11:30-0500 Systolic blood ccmfgmyt348 mm[Hg]Brooks Dino [address] [place], [place] 1615401-16-2024 10:10-0500 Diastolic blood xndeuidd74 mm[Hg]Brooks Sun [address] [place], [place] 1615401-16-2024 10:10-0500Heart rate64 /minBrooks Sun [address] [place], [place] 1615401-16-2024 10:10-0500Mean blood nlinzqfy17 mm[Hg]Brooks Sun [address]01-16-2024 10:10-0500 Respiratory rate20 /minBrooks Sun [address] [place], [place] 1703701-16-2024 10:10-6753NgJ3% (BldA) [Mass fraction]97 %Brooks Sun [address]01-16-2024 10:10-0500 Systolic blood ukdwgrth020 mm[Hg]Brooks Sun [address]01-16-2024 09:11-0500Body bnghjqdyskj36.16 [degF]Brooks Sun [address] [place], [place] 1615401-16-2024 09:11-0500 Diastolic blood tmkcyeab36 mm[Hg]Brooks Sun [address] [place], [place] 1703701-16-2024 09:11-0500gluc 141 mg/dLJoveronica Sun [address] [place], [place] 1615401-16-2024 09:11-0500Heart rate66 /minBrooks Sun [address] [place], [place] 1615401-16-2024 09:11-0500 Respiratory rate20 /minBrooks Hallmane [address] [place], [place] 1615401-16-2024 09:11-7718PwC7% (BldA) [Mass fraction]97 %Brooks Sun [address] [place], [place] 1615401-16-2024 09:11-0500 Systolic blood wojzeonm067 mm[Hg]Brooks Sun [address] [place], [place] 1615410-24-2023 09:32-0400 Hourly RoundingRonobir SHI [address] [place], [place] 1615410-24-2023 09:32-0400 Promise to ReturnRonobir SHI [address] [place], [place] 1615410-24-2023 08:32-0400 Hourly RoundingRonobir SHI [address] [place], [place] 1703710-24-2023 08:32-0400 Promise to ReturnRonobir SHI [address] [place], [place] 1703710-24-2023 08:17-0400Heart rate85 /minRonobir SHI [address] [place], [place] 1703710-24-2023 08:17-2873NfM3% (BldA) [Mass fraction]97 %Ronobir SHI [address] [place], [place] 1703710-24-2023 08:17-0400 Diastolic blood rozhzfkp83 mm[Hg]Ronobir SHI [address] [place], [place] 1703710-24-2023 08:17-0400Mean blood jrczmgmi25 mm[Hg]Ronobir SHI [address] [place], [place] 1703710-24-2023 08:17-0400 Systolic blood jwouulgw329 mm[Hg]Ronobir SHI [address] [place], [place] 1615410-24-2023 08:16-0400Body qsdvldwsopj84.06 [degF]Ronobir SHI [address] [place], [place] 1615410-24-2023 08:16-0400gluc 123 mg/dLRonobir SHI [address] [place], [place] 1615410-24-2023 07:32-0400 Hourly RoundingRonobir SHI [address] [place], [place] 1703710-24-2023 07:32-0400 Promise to ReturnRonobir SHI [address] [place], [place] 1703710-24-2023 00:18-0400Blood Pressure LocationRonobir SHI [address] [place], [place] 1703710-24-2023 00:18-0400Body qfiszoehelo66.7 [degF]Ronobir SHI [address] [place], [place] 1703710-24-2023 00:18-0400 Diastolic blood bjqyallf74 mm[Hg]Ronobir SHI [address] [place], [place] 1703710-24-2023 00:18-0400Heart rate86 /minRonobir SHI [address] [place], [place] 1703710-24-2023 00:18-0400Mean blood hongkzxr98 mm[Hg]Ronobir SHI [address] [place], [place] 1703710-24-2023 00:18-8032KwG3% (BldA) [Mass fraction]97 %Ronobir SHI [address] [place], [place] 1703710-24-2023 00:18-0400 Systolic blood mm[Hg]Ronobir SHI [address] [place], [place] 1703710-23-2023 21:00-0400Body iyisuahmhus35.24 [degF]Ronobir SHI [address] [place], [place] 1703710-23-2023 21:00-0400 Diastolic blood fbjxfaij50 mm[Hg]Ronobir SHI [address] [place], [place] 1703710-23-2023 21:00-0400Heart rate99 /minRonobir SHI [address] [place], [place] 1703710-23-2023 21:00-0400 Systolic blood vkavnoxy950 mm[Hg]Ronobir SHI [address] [place], [place] 1703710-23-2023 18:25-0400gluc 293 mg/dLRonobir SHI [address] [place], [place] 1703710-23-2023 17:18-0400 Respiratory rate18 /minRonobir SHI [address] [place], [place] 1703710-23-2023 17:17-0400Body ifyeacismxk39.34 [degF]Ronobir SHI [address] [place], [place] 1703710-23-2023 17:17-0400Mean blood ophzaotf35 mm[Hg]Ronobir SHI [address] [place], [place] 1703710-23-2023 13:24-0400gluc 279 mg/dLRonobir SHI [address] [place], [place] 1703710-23-2023 12:00-0400Body dsofsbwuhjc79.88 [degF]Ronobir SHI [address] [place], [place] 1703710-23-2023 12:00-0400Mean blood xzdliror93 mm[Hg]Ronobir SHI [address] [place], [place] 1703710-23-2023 08:19-0400 Respiratory rate20 /minRonobir SHI [address] [place], [place] 1703710-23-2023 08:17-0400Mean blood ftoekbge817 mm[Hg]Ronobir SHI [address] [place], [place] 1703710-23-2023 01:00-0400Body ypsfcdzrsgt35.24 [degF]Ronobir SHI [address] [place], [place] 1703710-23-2023 01:00-0400Mean blood uqmmwytu320 mm[Hg]Ronobir SHI [address] [place], [place] 1703710-19-2023 04:11-0400 BP/Pulse Patient PositionRonobir SHI [address] [place], [place] 1703710-19-2023 00:41-0400Heart bmqa310 /minRonobir SHI [address] [place], [place] 1703710-18-2023 23:12-0400 Respiratory rate26 /minRonobir SHI [address] [place], [place] 1703710-18-2023 22:15-0400 Respiratory rate26 /minRonobir SHI [address] [place], [place] 1703710-18-2023 21:57-0400 Respiratory rate25 /minRonobir SHI [address] [place], [place] 1703710-18-2023 19:47-0400Heart hpib879 /minRonobir SHI [address] [place], [place] 1703710-18-2023 19:11-0400Heart tyyj823 /minRonobir SHI [address] [place], [place] 1703705-12-2022 16:25-0400 Hourly RoundingPatrick TONA [address] [place], [place] 1703705-12-2022 16:25-0400 Promise to ReturnPatrick TONA [address] [place], [place] 1703705-12-2022 15:15-0400 Hourly RoundingPatrick TONA [address] [place], [place] 1703705-12-2022 15:15-0400 Promise to ReturnPatrick TONA [address] [place], [place] 1703705-12-2022 14:08-0400 Hourly RoundingPatrick TONA [address] [place], [place] 1703705-12-2022 14:08-0400 Promise to ReturnPafrancoisk TONA [address]05-12-2022 12:00-0400 Diastolic blood mm[Hg]Kalen CHAVEZLIN [address]05-12-2022 12:00-0400 Systolic blood gqakcsdy306 mm[Hg]Kalen CARBONE [address] [place], [place] 1703705-12-2022 11:14-0400Body .06 [degF]Kalen CARBONE [address] [place], [place] 1703705-12-2022 11:14-0400 Diastolic blood lpyweach16 mm[Hg]Kalen CARBONE [address] [place], [place] 1703705-12-2022 11:14-0400Heart rate69 /minPatrick TONA [address] [place], [place] 1703705-12-2022 11:14-0400Mean blood gtffijdu620 mm[Hg]Kalen CARBONE [address] [place], [place] 1703705-12-2022 11:14-9404NlK0% (BldA) [Mass fraction]96 %Kalen CARBONE [address]05-12-2022 11:14-0400 Systolic blood ixipufei807 mm[Hg]Kalen CARBONE [address]05-12-2022 07:11-0400Body pgdwkkukvea43.06 [degF]Kalen CARBONE [address]05-12-2022 07:11-0400 Diastolic blood sapkpszn63 mm[Hg]Kalen QUEENSLIN [address]05-12-2022 07:11-0400Heart rate70 /minPatrick TONA [address] [place], [place] 1703705-12-2022 07:11-0400Mean blood xoitkyly382 mm[Hg]Kalen CARBONE [address] [place], [place] 1703705-12-2022 07:11-1112KzB3% (BldA) [Mass fraction]98 %Kalen CARBONE [address] [place], [place] 1703705-12-2022 07:11-0400 Systolic blood wqfanpon109 mm[Hg]Kalen CARBONE [address] [place], [place] 1703705-12-2022 04:00-0400Body chvznplcfha14.34 [degF]Kalen CARBONE [address] [place], [place] 1703705-12-2022 04:00-0400Mean blood jldmroxg797 mm[Hg]Kalen CARBONE [address] [place], [place] 1703705-12-2022 04:00-0400 Respiratory rate18 /minPatrick TONA [address] [place], [place] 1703705-12-2022 01:00-0400Blood Pressure LocationPatrick TONA [address] [place], [place] 1703705-11-2022 22:30-0400Blood Pressure LocationPatrick TONA [address] [place], [place] 1703705-11-2022 22:30-0400Heart rate78 /minPatrick TONA [address] [place], [place] 1615405-11-2022 22:30-0400 Respiratory rate18 /minPatrick TONA [address] [place], [place] 1703705-11-2022 21:00-0400Mean blood xfldhacn324 mm[Hg]Kalen CARBONE [address] [place], [place] 1703705-11-2022 20:45-0400Mean blood zizgqvno967 mm[Hg]Kalen CARBONE [facility]05-11-2022 20:45-0400 Respiratory rate20 /minPagordo CARBONE [facility]05-11-2022 19:08-0400gluc 65 mg/dLPagordo CARBONE [facility]05-11-2022 19:08-0400gluc Kalenfelicity CARBONE [facility]05-11-2022 18:42-0400Heart rate88 /minKalen CHAVEZLIN [facility] Encounters Encounter DateEncounter [facility] ProviderFacilityStart: 10-03-2025 End: 15-17-5077ajdtykoiecWJT STAFF-[facility] [place]Start: 10-03-2025 End: 55-92-8190Lelzxsp encounter Sherman Nader Kian SANTIAGON-FNP-C-[facility] [place] Work Phone: Start: 09-27-2025 End: 58-21-2609Xsynhj outpatient visit 25 minutesEvita Fitzgerald [employer] Work Phone: NOZH Joanne Hayes PulmonologyComment on above: Chronic cough (Primary Dx); ILD (interstitial lung disease) ([facility])Start: 09-27-2025 End: 09-40-0347xulvgaknahPVOVNW K STRACKNot AvailableStart: 09-27-2025 End: 25-98-1171Dxruyt flowsKirti Collado Lia DO Work Phone: noms Joanne Diaz PulmonologyStart: 09-27-2025 End: 01-58-8369Dgejrj flowsKirti Fitzgerald [employer] Work Phone: noms [place] PulmonologyStart: 09-21-2025 End: 24-56-6282uuncmqofydCYYEVB A LEMELQUIADESANNFacility:[facility] [place]Start: 75-09-9101wtrahetlfaGtilyf L. BobbsFacility:[facility] [place]Start: 08-16-2025 End: 37-31-0171lydprevnfmIgva L SchwabFacility:[facility] [place]Start: 08-14-2025 ambulatorySamuel Nader. RossFacility:[facility] [place]Start: 08-07-2025 End: 60-77-5314Dnprwr Patrice Joshi MD Work Phone: noms [place] EndocrinologyStart: 08-07-2025 End: 28-39-7587Yzdxqyeufemia Joshi MD Work Phone: noms Joanne EndocrinologyStart: 08-07-2025 End: 67-62-1383Xmeqwd outpatient visit 25 minutesDuc Joshi MD Work Phone: noms Joanne EndocrinologyComment on above:Type 2 diabetes mellitus with hyperglycemia, with long-term current use of insulin (HCC) (Primary Dx); Insulin long-term use (HCC); Encounter for dietary consultation; Vitamin D deficiency; Hyperlipemia, mixed ; HypoglycemiaStart: 08-07-2025 End: 69-66-5575kjrzmweikqHHMFAEli Monroy AvailableStart: 07-31-2025 End: 70-90-5642xtjvnmrjxoJPBXCM A LEHMANNFacility:[facility] [place]Start: 07-19-2025 End: 78-03-8660Kiiavn Jerry Collado Lia DO Work Phone: noMS [place] PulmonologyStart: 07-19-2025 End: 29-78-6433Uockpp Jerry Collado Lia DO Work Phone: noMS [place] PulmonologyStart: 07-19-2025 End: 89-86-4717Ftrtlu outpatient visit 25 minutesEvita Fitzgerald DO Work Phone: noMS [place] Diaz PulmonologyComment on above: Chronic coughStart: 07-19-2025 End: 81-32-6336ihdchzcskfMUJYND Tobias Negron AvailableStart: 07-17-2025 End: 25-73-3477ujqrbxtmpwFCVKTH A LEHMANNFacility:[facility] [place]vueStart: 05-31-2025 End: 02-36-7336gnhbbyrcqmYJEZNE A LEHMANNFacility:[facility] [place]vueStart: 05-22-2025 End: 24-80-2672Txqczi Jerry Collado Lia FISHER Work Phone: noms PULMStart: 05-22-2025 End: 40-71-4668Aeodgx flowsKirti Collado Lia FISHER Work Phone: noms PULMStart: 05-22-2025 End: 95-95-2346Yrnfww outpatient visit 25 minutesLeleonor Collado Lia FISHER Work Phone: noms PULMComment on above:Chronic cough (Primary Dx); ILD (interstitial lung disease) (HCC); Bronchiectasis without acute exacerbation (HCC)Start: 05-22-2025 End: 45-51-8701xwgdvlaarxEHLQOKRobbin Negron AvailableStart: 05-18-2025 End: 59-12-1784yrssgrsfqtFOIWLZ A LEHMANNFacility:[facility] [place]vueStart: 05-14-2025 End: 10-58-0174caiprunfczOjpfyu E. RossFacility:[facility] [place]vueStart: 04-10-2025 End: 52-76-5515Iiotnt Patrice Joshi MD Work Phone: [facility] ENDOCRINOLOGYStart: 04-10-2025 End: 73-64-9227Xflnyv Patrice Joshi MD Work Phone: [facility] ENDOCRINOLOGYStart: 04-10-2025 End: 23-75-5316Bnkbwd outpatient visit 25 minutesDuc Joshi MD Work Phone: noMS ENDOCRINOLOGYComment on above:Type 2 diabetes mellitus with hyperglycemia, with long-term current use of insulin (CMS/HCC) (Primary Dx); Insulin long-term use (CMS/HCC); Encounter for dietary consultation; Vitamin D deficiency; Hyperlipemia, mixed (CMS/HCC); HypoglycemiaStart: 04-10-2025 End: 18-12-3043fjthlbrbvaYDRGVEli Monroy AvailableStart: 03-29-2025 End: 57-79-3441wpyrarjbceXtmxln E. RossFacility:[facility] [place]vueStart: 03-14-2025 End: 86-79-4223wcgaviutriMGZZXG K STRACKNot AvailableStart: 03-14-2025 End: 67-87-8284Lhuyqw outpatient new minutesEvita Fitzgerald DO Work Phone: NOUL PULMComment on above:Chronic cough (Primary Dx); ILD (interstitial lung disease) (CMS/HCC); Bronchiectasis without acute exacerbation (CMS/HCC)Start: 03-11-2025 End: 69-30-5100HajxyeGhrtg F Sabbagh MD Work Phone: noms ENDOCRINOLOGYComment on above:Type 2 diabetes mellitus with hyperglycemia, with long-term current use of insulin (CMS/HCC) (Primary Dx)Start: 02-19-2025 End: 00-81-0717qiyhpresbrXMQANC LOWENot AvailableStart: 02-16-2025 End: 97-22-4111drqsaifiuiToefrp E. RossFacility:[facility] [place]vueStart: 02-13-2025 End: 98-34-2833fxsnrzfjhtUslxtn E. RossFacility:[facility] [place]vueStart: 01-15-2025 End: 09-25-9388bzppxzzdvzZapqrn E. RossFacility:[facility] FM [place]vueStart: 12-14-2024 End: 59-90-3486xoaayhvdajSybhmw E. RossFacility:[facility] FM [place]vueStart: 12-12-2024 End: 59-63-9284Hcmchgeufemia Joshi MD Work Phone: noMS ENDOCRINOLOGYStart: 12-12-2024 End: 42-12-9653Rlitsr flowsheetDuc Joshi MD Work Phone: noms ENDOCRINOLOGYStart: 12-12-2024 End: 96-10-5034Vdarxm outpatient visit 25 minutesDuc Joshi MD Work Phone: noms ENDOCRINOLOGYComment on above:Type 2 diabetes mellitus with hyperglycemia, with long-term current use of insulin (CMS/HCC) (Primary Dx); Insulin long-term use (CMS/HCC); Encounter for dietary consultation; Vitamin D deficiency; Hyperlipemia, mixed (CMS/HCC); HypoglycemiaStart: 12-12-2024 End: 55-19-1398fchrkkfzbeIBPID F SABBAGHNot AvailableStart: 10-31-2024 End: 76-28-0832aizybzktbcZfdgjf Nader. RossFacility:FT [place]vueStart: 10-11-2024 End: 87-91-2861hkyiocdpbtZeku Chandrakant SchwabFacility:FT [place]vueStart: 10-02-2024 End: 35-19-8890wzjeriybbvKiqnla E. RossFacility:FT [place]vueStart: 09-29-2024 End: 93-38-2426ntjfitdinhIbbbhp E. RossFacility:FT [place]vueStart: 09-20-2024 End: 44-28-4510QogwtuJthstwobp F Hoffman NP Work Phone: noms OBComment on above:Candidiasis of vulva and vaginaStart: 74-66-7779fuoobreczmLW Natacha OneillFacility:FTMCStart: 08-14-2024 End: 96-79-9901Bxj Drop offScynthia Oneill [facility] Start: 08-10-2024 End: 34-47-9896fycxmcbpbmSF Samuel E. RossFacility:FTMCStart: 08-10-2024 End: 56-00-6529Ues Drop offScynthia Oneill [facility] Start: 06-22-2024 End: 87-89-5715WmrwnpcuaRypvqb E. Ross [facility] Start: 58-65-6719Ywayteedib and management of inpatient Mariann MorfinFacility:FTMCStart: 03-42-2385Tspivbzlu department patient visiteJrrell Valdes RichardFacility:FTMCStart: 06-18-2024 End: 46-64-6832Sngfpwyoor and management of inpatientMariann Morfin [facility] start: 06-15-2024 End: 99-24-3925Nneiyyvmvc and management of inpatientMariann Morfin Facility:FTMCStart: 53-05-6236Qduyblrnd department patient visitErwin Montez Facility:FTMCStart: 06-15-2024 End: 25-42-2015Brqdynnxuy and management of inpatientMariann Morfin [facility] start: 05-16-2024 End: 18-60-5987Oqm Drop offScynthia Oneill [facility] Start: 05-16-2024 End: 39-30-1442upqjgxfxerAlwtdn E. RossFacility:[facility]vueStart: 05-12-2024 End: 30-87-7505tvhpfribytMpqmho E. RossFacility:[facility]vueStart: 05-02-2024 End: 90-11-4266Gpl Drop offScynthia Oneill [facility] Start: 04-20-2024 End: 89-30-3152Arqqnrd encounter JorgeNader Garzon PAPO [facility] Start: 01-27-2024 End: 80-89-4534Rdh Drop offScynthia Oneill [facility] Start: 01-13-2024 End: 43-07-7590Hnmybcj encounter procedureNELY FRANKLIN [facility] Start: 46-89-8474Peceyxlcyk and management of inpatient MARIANN ROBENSTINEFacility:[facility]ROHealthStart: 01-03-2024 End: 90-14-6540Lrwmaniixr and management of inpatientPrerna Dae VALENTINE Work Phone: [place] [address] EastComment on above:SDH (subdural hematoma) (HCC) (Primary Dx); SAH (subarachnoid hemorrhage) (HCC); Difficulty walking; Multiple fallsStart: 12-14-2023 End: 28-99-2607Dbobhxfmv department patient visitBrooks Sun [facility] Start: 11-08-2023 End: 81-75-4309Tpp Drop offScynthia Oneill [facility] Start: 10-28-2023 End: 57-67-6212Tjsdzkz encounter Armando Oneill [facility] Start: 09-30-2023 End: 34-57-7172Ugj Drop offScynthia Oneill [facility] Start: 09-15-2023 End: 16-11-3421Xawkdprdnn and management of inpatientRonobir Robert OSULLIVAN [facility] Start: 05-19-2023 End: 65-86-9784Fvr Drop offScynthia Oneill [facility] Start: 04-07-2023 End: 64-48-5012bzlycfwybsVAHDMI SAMSA .Facility:H5Uygtc: 03-31-2023 End: 92-00-0064clngtisdlxDZGSEP SAMSA .Facility:A2Dreut: 03-23-2023 End: 18-89-1780cdzrwlwuzkIXDNOC ELI ROSSFacility:M2Yjmvg: 03-22-2023 End: 94-86-9873ymgkxfbqtmTY DOCTOR MISCFacility:Q1Pbczv: 03-22-2023 End: 22-63-9206Efq Drop offScynthia Oneill [facility] Start: 03-11-2023 End: 09-50-4003bfabjsxejiDX DAVID V WESTFacility:L1Auvbi: 03-01-2023 End: 72-94-9388Ysz Drop offScynthia Oneill [facility] Start: 02-22-2023 End: 27-23-7243Csfnufo encounter procedureScarsonvale Oneill [facility] Start: 02-17-2023 End: 00-28-3522FmfiejfotFbbtyz E. Ross [facility] Start: 01-26-2023 End: 98-79-4040ynzzjeqzyjOJ KIM E KNIGHT .Facility:Z1Ueelj: 01-06-2023 End: 14-80-9623eaflqyrcuwBI KIM E KNIGHT .Facility:Z7Wskod: 09-30-2022 End: 11-48-8669uhzbakhpddUB KIM E KNIGHT .Facility:M5Swcut: 08-31-2022 End: 29-38-3674zlvcdmylppSU DOCTOR MISCFacility:G5Mbljg: 04-20-2022 End: 69-97-7443kltibmxbysRD KIM E KNIGHT .Facility:G3Tfvgf: 04-08-2022 End: 36-06-5771ZtxxzqowxykLqclqxq A BRESLIN [facility] Start: 06-10-2020 End: 15-95-7413jzubrgsvuwUxbtu Precious OrlandoFacility:[facility] HospitalStart: 12-28-2018 End: 43-08-6155Gaizmcg encounter procedureJOTOBY MACK Facility:[facility] - EWOCStart: 11-30-2018 End: 52-65-5725Gembkqf encounter procedureJOTOBY MACK Facility:[facility] HospitalStart: 11-30-2018 End: 14-91-9869Bwdlfak encounter procedureJOTOBY MACK Facility:[facility] - EWOCStart: 10-26-2018 End: 92-23-2274Ajvdpgu encounter procedureJOTOBY MACK Facility:[facility] - EWOCStart: 09-28-2018 End: 59-14-6164Fwshfxu encounter procedureJOTOBY MACK Facility:[facility] HospitalStart: 09-02-2018 End: 84-53-7114Txgnjbe encounter procedureLORIE A THOMASFacility:[facility]: 09-01-2018 End: 55-84-1052Yrwltew encounter procedureLORIE A THOMASFacility:[facility] EWOCStart: 08-23-2018 End: 19-89-9449Ulxbovd encounter procedureLORIE A THOMASFacility:[facility]: 08-16-2018 End: 00-79-2272Ybqgfle encounter procedureLORIE A THOMASFacility:[facility]: 08-11-2018 End: 97-03-5186Zwtxvtv encounter procedureLORIE A THOMASFacility:[facility]: 08-11-2018 End: 07-07-8274Bmhbgxq encounter procedureLORIE A THOMASFacility:[facility] EWOCStart: 06-29-2018 End: 28-26-5308Ioryswt encounter procedureBINTA MACK [facility]OCStart: 06-[facility] End: 65-98-2186Gjkgzzb encounter procedureJOTOBY MACK [facility] EWOCStart: 05-09-2018 End: 87-91-8766Qignmwy encounter procedureLORIE A THOMASFacility:[facility]tart: 05-09-2018 End: 91-83-6143Ftkocoy encounter procedureLORIE A THOMASFacility:[facility] EWOCStart: 04-04-2018 End: 10-27-4886Usjujmz encounter procedureLORIE A THOMASFacility:[facility] Procedures DateProcedureProcedure DetailPerforming ClinicianStart: 56-96-5320Zpli bld gluc mntr dev cleared fda spec home useDuc Joshi MD Work Phone: Start: 52-21-8062Tgpb bld gluc mntr dev cleared fda spec home useDuc Joshi MD Work Phone: Start: 29-02-0961Guvp bld gluc mntr dev cleared fda spec home useDuc Joshi MD Work Phone: Start: 01-05-2024 End: 41-69-8019Ekruxvf blood reagent Sarmad Ansari MD Work Phone: Start: 10-92-0939Qpjeikt blood reagent Sarmad Ansari MD Work Phone: Start: 95-67-8588Fqhaxahhes glycosylated k7fIhnwhhVerona Bean MD Work Phone: Start: 76-18-8017Wthjmap Nato Meyers MD Work Phone: Start: 17-89-7191Golxbiq blood reagent stripJamal Ansari MD Work Phone: Start: 75-54-2615Lgguumz blood reagent stripJamal Ansari MD Work Phone: Start: 21-28-6937Kjhcnwv blood reagent stripJamal Ansari MD Work Phone: Start: 79-17-0819Qmqebno blood reagent Yazmin Garrett MD Work Phone: Start: 01-04-2024 End: 88-63-2281Ujhtj of Elma Meyers MD Work Phone: Start: 55-00-5814Etpmsyw blood reagent Yazmin Garrett MD Work Phone: Start: 28-48-2347Lydcijy blood reagent Yazmin Garrett MD Work Phone: Start: 13-16-7113Ymsddwr blood reagent Yazmin Garrett MD Work Phone: Start: 58-08-3630Ejrprakkp Comparison study - date and Fariba Meyers MD Work Phone: Start: 65-80-4703Rb head/brain w/o contrast material Precious Meyers MD Work Phone: Start: 01-03-2024 End: 14-30-0019Xdxkr of Tracy Meyers MD Work Phone: Start: 70-68-9917Abemdoh bladder structure (body structure)Kalen CARBONE Comment on above:BLADDER SUSPENSION SXStart: 11-29-2016 Cataract (morphologic abnormality)Kalen CARBONE Comment on above:ISAMAR CATARACT SXStart: 86-23-0354Kgeuz back (surface region) (body structure)Kalen CARBONE Comment on above:BACK SURGERY X 2Colpocleisis, [place] typeKalen CARBONE Mass of pancreas (finding)Kalen CHAVEZLIN Comment on above:2 SURGERIES ON PANCREAS 1 IN [place], [place] 1 IN [place], [place] ENLARGING TUMOR, NO CA Plan of Treatment DateCare ActivityDetailAuthorStart: 52-39-9037nzblebjwaaGccmzqdcawRalulxfh:FT FM BellevueStart: 03-19-2026 End: 33-23-5812Bgihtgf encounter procedureNOMS NB OBStart: 01-03-2026 End: 46-74-9750Amowelc encounter ighebvyrn03/05/2026 3:00 PM EST Office Visit [facility] [address] [place] [address] Evita Fitzgerald, DO [address] [place] [address] [facility]monologyStart: 12-11-2025 End: 96-80-0933Mhpkkjt encounter vavagdmge68/13/2026 11:10 AM EST Office Visit [facility] [address] [place] [address] Duc Joshi MD [address] [place] [address] [facility]ocrinologyStart: 16-59-6428sxzscljyiuVgczhdxjdwLraanjeq:FT BellevueStart: 24-63-3324kkimpktuia AmbulatoryFacility:FT BellevueStart: 09-27-2025 End: 43-62-3618Wkxrlle encounter procedureNOMS [place] [facility] PulmonologyComment on above:ArrivedStart: 09-27-2025 End: 91-87-0785CN Chest 2 ViewsXR chest 2 views Imaging Routine Chronic cough ILD (interstitial lung disease) (HCC) Expected: 09/27/2025, Expires: 09/27/2026 [facility] Work Phone: Comment on above:Expected: 09/27/2025, Expires: 09/27/2026Start: 08-27-2025 End: 47-00-7299Bwvmfbq encounter rmzfsicks79/29/2025 10:40 AM EDT Office Visit [facility] [address] [place] [address] Kay Huerta PA [address] [place] [id number] [facility] AKBARUEStart: 08-07-2025 End: 74-49-3028Wgqblif encounter procedureNOMS SH ENDOCRINOLOGYComment on above: Type 2 diabetes mellitus with hyperglycemia, with long-term current use of insulin ([facility])Start: 49-89-4557VMGSA-19 Vaccine ( season)COVID-19 Vaccine ()[facility] HealthcareStart: 19-60-6889Nvnllpbwg vaccinationInfluenza Vaccine (#1)[facility] HealthcareStart: 07-19-2025 End: 73-94-8457Wzcukmi encounter procedureNOMS SH PULMComment on above:Arrived Start: 05-22-2025 End: 91-60-8566Xmhduvc encounter procedureNOMS SH PULMComment on above:Arrived Start: 04-25-2025 End: 05-55-7594Nifzbfi encounter dvwmzdcyr18/28/2025 9:30 AM EDT Office Visit [facility] [address] [facility] [address] [place] [address] Savannah Guevara NP [address] [place] [address] [facility] ORTHOPAEDICSStart: 04-10-2025 End: 800097-teofufiwlotpej D3 [Mass/volume] in Serum or PlasmaVitamin D 25 hydroxy Total Lab Routine Type 2 diabetes mellitus with hyperglycemia, with long-term current use of insulin ([facility]) Expected: 04/10/2025 (Approximate), Expires: 04/10/2026NOMS HealthcareComment on above:Expected: 04/10/2025 (Approximate), Expires: 04/10/2026Start: 04-10-2025 End: 84-37-0142P-peptideC-peptide Lab Routine Type 2 diabetes mellitus with hyperglycemia, with long-term current use of insulin ([facility]) Expected: 04/10/2025 (Approximate), Expires: 04/10/2026[facility] Work Phone: Comment on above:Expected: 04/10/2025 (Approximate), Expires: 04/10/2026Start: 04-10-2025 End: 81-13-9190Lmxyv 1996 panel - Serum or PlasmaLipid panel Lab Routine Type 2 diabetes mellitus with hyperglycemia, with long-term current use of insulin ([facility]) Expected: 04/10/2025 (Approximate), Expires: 04/10/2026[facility] Comment on above:Expected: 04/10/2025 (Approximate), Expires: 04/10/2026Start: 04-10-2025 End: 22-10-1933Geywifbalynm/Creatinine panel in random UrineMicroalbumin / creatinine urine ratio Lab Routine Type 2 diabetes mellitus with hyperglycemia, withlong-term current use of insulin ([facility]) Expected: 04/10/2025 (Approximate), Expires: 04/10/2026[facility] HospitalComment on above:Expected: 04/10/2025 (Approximate), Expires: 04/10/2026Start: 04-10-2025 End: 62-97-5753Brvwh function panelRenal function panel Lab Routine Type 2 diabetes mellitus with hyperglycemia, with long-term current use of insulin ([facility]) Expected: 04/10/2025 (Approximate), Expires: 04/10/2026[facility] Comment on above:Expected: 04/10/2025 (Approximate), Expires: 04/10/2026Start: 04-10-2025 End: 81-96-6697Iladqpu encounter procedureNOELLIS [facility] ENDOCRINOLOGYComment on above: Type 2 diabetes mellitus with hyperglycemia, with long-term current use of insulin ([facility])Start: 03-14-2025 End: 50-05-5730Ipoqtsq encounter /16/2025 10:30 AM EDT Consult [facility] [address] [place] [address] Evita Fitzgerald, [address] [place] [address] [facility] PULMStart: 01-17-2025 End: 12-35-7553Rlulmon encounter jdpthiwfp24/19/2025 12:20 PM EST Office Visit [facility] [address] [place] [phone] Kay Huerta PA [address] [place], [place] [address] [facility] COURTNEYtart: 75-71-6934Wjftzykses measurementBasic Metabolic PanelMetroHealthStart: 12-12-2024 End: 73-84-2802Vsiwjgb encounter procedureNOELLIS FISCHEL [facility] ENDOCRINOLOGYComment on above: Type 2 diabetes mellitus with hyperglycemia, with long-term current use of insulin ([facility])Start: 10-23-2024 End: 24-56-9253Fwjkdjq encounter yapqhxpfz66/25/2024 12:40 PM EST Office Visit [facility] [address] [place] [phone] Leonor Isaac PA [address] [place] [address] [facility] ALFON[facility] STATE ROUTEStart: 58-15-5432Qxshxrrhko A1c measurementHemoglobin M9DSfykuVmxynkRujbe: 33-66-4868Bkbzl panelLipid ProfileMetroHealthStart: 01-17-2024 End: 87-98-1552BI Head WO contrastCT HEAD W/O CONTRAST Imaging Routine SDH (subdural hematoma) ([facility]) Expected: 01/17/2024, Expires: 01/03/2025[employer] Work Phone: Comment on above:Expected: 01/17/2024, Expires: 01/03/2025Start: 93-63-1028Lhupfpl to Medicare Visit (G0402)Welcome to Medicare Visit (G0402)[facility]HealthStart: 71-78-8855BKFMN-19 Vaccine ( season) COVID-19 Vaccine ( season)[facility]HealthStart: 44-03-6993Mxzeoqui (RZV) Vaccine (2 of 2)Shingles (RZV) Vaccine (2 of 2)MetroHealthStart: 1958 Tetanus + diphtheria + acellular pertussis vaccine (product)Tdap Booster MetroHealthStart: 24-15-9261KSvD/Tdap/Td Vaccines (1 - Tdap)DTaP/Tdap/Td Vaccines (1 - Tdap)[facility] HealthcareStart: 23-57-2448Iseryjvs screeningEye Exam MetroHealthStart: 31-63-5602Ulttj screening for proteinMicroalbuminMetroHealth Start: 56-34-2145Sfqkefxa foot examinationFoot ExamMetroHealthAssay of magnesium MAGNESIUM Lab Routine Daily until discontinued starting 01/03/2024, 3 completed MetroHealthComment on above:Daily until discontinued starting 01/03/2024, 3 completedAssay of phosphorus inorganicPHOSPHORUS Lab Routine Daily until discontinued starting 01/03/2024, 3 completedMetroHealthComment on above:Daily until discontinued starting 01/03/2024, 3 completedBasic metabolic 2000 panel - Serum or PlasmaBASIC METABOLIC PANEL Lab Routine Daily until discontinued starting 01/03/2024, 3 completed[employer] Work Phone: Comment on above:Daily until discontinued starting 01/03/2024, 3 completedCalcium ionizedCALCIUM, IONIZED Lab STAT Daily until discontinued starting 01/03/2024, 2 completedMetroHealthComment on above:Daily until discontinued starting 01/03/2024, 2 completedCBC panel - Blood by Automated countCOMPLETE BLOOD COUNT Lab Routine Daily until discontinued starting 01/03/2024, 3 completedMetroHealthComment on above:Daily until discontinued starting 01/03/2024, 3 completed Immunizations Immunization DateImmunizationNotesCare FhjicogaDhmufujn26-93-5619yrrratcmo virus vaccine, unspecified formulationEvita Fitzgerald DO Work Phone: [facility] HospitalHwyxajecmm31-11-6414ujfkwp vaccine recombinant Evita Fitzgerald DO Work Phone: [facility] HospitalObcywtgspp39-64-1182cpmweaorb virus vaccine, unspecified formulationDuc Joshi MD Work Phone: NOFreeman Health SystemMsvvyrjyfj37-99-4068fdnckishi, high dose seasonal, preservative-freeDuc Joshi MD Work Phone: [facility] HospitalNchgowqqfu49-65-6689Xosgzhsulb E2AQemxjqAsh Pearl MD Work Phone: [phone]hCmcsua07-67-6805Uvazpgwtdcq syncytial virus (RSV), vaccine, recombinant, protein subunit RSV prefusion F, adjuvant r econstituted, 0.5 mL, preservative free (QFQ=033)Ash Pearl MD Work Phone: [phone]hMohiwv39-49-5539VMB, UnspecifiedLeanne Lia DO Work Phone: [facility] HospitalUmkgsfgjns39-81-7483Jpeiuwvnhmnu conjugate 20 valent (PCV20), polysaccharide NZG787 conjugate, adjuvant, PF (RFV=956)Ash Pearl MD Work Phone: [phone]rBjoflv03-20-1230twvluvpjkhzj conjugate vaccine, 13 valentScynthia Oneill [facility] Population Allphp58-75-7904jqtxrqfmc virus vaccine, unspecified formulationScynthia Oneill 001-1917Gvdagx-OfnluUniversity Hospitals Cleveland [facility] Center11-21-2023 Influenza, seasonal vaccine, quadrivalent, adjuvanted, 0.5mL dose, preservative free (GVF=248)Ash Pearl MD Work Phone: [phone]nJmflyr21-48-4857TMBB-GeQ-3 (COVID-19) mRNAMUL.ORD!z56525Brsczf Ross 433-8043Qtywrs-RcmfbUniversity Hospitals Cleveland Medical Center10-09-2022 influenza virus vaccine, unspecified formulationScynthia Oneill 996-0566Cqdwqo-PckztUniversity Hospitals Cleveland Medical Center10-09-2022 Influenza, injectable, high-dose seasonal, quadrivalent, 0.7 mL, preservative free (LNF=762)Ash Pearl MD Work Phone: [phone]iKkfvzw85-49-0668DLGPY-83, mRNA, LNP-S, PF, 100 mcg or 50 mcg dose; Translations: [SARS-CoV-2 (COVID-19) mRNA-1273 vaccine] Kalen CARBONE [facility]10-23-2021influenza virus vaccine, unspecified formulationScynthia Oneill 244-6443Gifxju-QevrfUniversity Hospitals Cleveland Medical Center10-23-2021 Influenza, injectable, high-dose seasonal, quadrivalent, 0.7 mL, preservative free (POR=478)Ash Pearl MD Work Phone: [phone]rOmjknu56-80-1301NTYG-KmI-7 (COVID-19) mRNA-1273 vaccineScynthia Oneill 793-1251Dnfndb-OkgzpUniversity Hospitals Cleveland Medical Center01-13-2021 SARS-CoV-2 (COVID-19) mRNA-1273 vaccineScynthia Oneill 560-0641Hpkaqh-WefsqUniversity Hospitals Cleveland Medical Center09-28-2019zoster vaccine recombinantScynthia Mai 037-6027Jjzugo-XbdazUniversity Hospitals Cleveland Medical Center09-23-2019 influenza virus vaccine, live, attenuated, for intranasal usePagordo CARBONE [facility]11-09-2005influenza virus vaccine, whole virusDuc Joshi MD Work Phone: [facility] HospitalXsobyhdxyx53-19-9926rvascajus, wholeSamuel Ross [phone]-AivfgUniversity Hospitals [facility] Center11-09-2005 pneumococcal polysaccharide vaccine, 23 valentScynthia Oneill 630-4278Pfunws-AvjkkUniversity Hospitals Cleveland Medical CenterNEGATED: Highlighted row has not occurred!24-51-4387lntaezrfc virus vaccine, unspecified formulationScynthia Oneill 355-7953Oilecu-AonxvKettering Memorial Hospital BellevueNEGATED: Highlighted row has not occurred!25-95-9814ctgtmjsle virus vaccine, unspecified formulationMaxwell OSULLIVAN [phone]-VtidcDayton Children'S Hospital BellevueComment on above: Result Comment: will get when feeling better Payers DatePayer CategoryPayerPolicy [id number] Cross Blue ShieldBCBS [id number] [id number] [id number] 2.840.1.778777.3.57[id number] 2.0.1.063295.3.579.2.43560-08-8614Hdvuwlx15299565 2.840.1.925776.3.579.2.66806-13-2765Xvpoctu61851138 2.840.1.679742.3.579.2.62298-27-9590Oxiurkk18516468 2.16.840.1.346850.3.579.2.22982-67-6549Zdaykwj27306608 2.16.840.1.723718.3.579.2.38351-48-9247Hhgptan80808489 2.16.840.1.051029.3.579.2.88993-38-2739Xgkrahj03271650 2.16.840.1.164222.3.579.2.20034-87-6413Zyybyni77253974 2.16.840.1.244548.3.579.2.55081-71-5666Hfvbeai20311701 2..840.1.927120.3.579.2.95290-92-1299Qngvxob94498987 2..840.1.474658.3.579.2.87022-25-2308Bdqlcqq57831016 2..840.1.293290.3.579.2.45922-48-7508Qtnfpuk59018937 2..840.1.316998.3.579.2.83859-58-1427Qqkwiei27816741 2..840.1.530786.3.579.2.53128-08-0318Qbbibrm17413983 2..840.1.034280.3.579.2.57950-81-9671Hjbwjjv09024892 2..840.1.412784.3.579.2.73101-52-8429Ojxtsiu01223005 2.16.840.1.199950.3.579.2.55426-65-0252Yaeyace73988812 2.16.840.1.605770.3.579.2.52438-75-7172Gqdtkla14939137 2.16.840.1.869291.3.579.2.09637-24-8545Ojbuadj6632865 2.16.840.1.078050.3.579.2.85592-29-9849Nihmmum6250711 2.16.840.1.034207.3.579.2.21832-94-5547Oozwtio1061558 2.16.840.1.703885.3.579.2.04701-01-6592Abpzkrq6994230 2.16.840.1.747859.3.579.2.55079-78-0298Gyvrnws2040871 2.16.840.1.186481.3.579.2.65939-80-7424Pejcloa8348101 2.16.840.1.325542.3.579.2.67281-93-0885Bxnlkda6771472 2.16.840.1.062794.3.579.2.47565-58-4340Rvlpddh5732250 2.16.840.1.049330.3.579.2.69597-06-8335Odgrawd4345558 2.16.840.1.058507.3.579.2.46356-41-3714Sxjiqsp2621425 2.16.840.1.712423.3.579.2.91646-23-9213Wgxwuxw814505370 2.16.840.1.406325.3.579.2.01887-27-1491Qgvfetb941885289 2.16.840.1.639151.3.579.2.66064-16-9333Eiwfcdx006630796 2.16.840.1.829853.3.579.2.94628-08-3216Scpuzse19904845 2.16.840.1.292561.3.579.2.61858-09-4214Hbrgdhs01961387 2.16.840.1.255930.3.579.2.58676-55-9005Cmragds35571844 2.16.840.1.484749.3.579.2.76941-54-1033Sorregt67014543 2.16.840.1.733575.3.579.2.90029-09-9631Uvteotp99736128 2.16.840.1.551547.3.579.2.79414-75-2289Jgdncrq89546502 2.16.840.1.647898.3.579.2.21550-49-3541Pkjckbe32987715 2.16.840.1.549638.3.579.2.32654-27-2635Fzybaby40143865 2.16.840.1.541132.3.579.2.93989-74-2714Gfapsud70792893 2.16.840.1.882579.3.579.2.37506-75-5079Xogcgaa12071732 2.16.840.1.324002.3.579.2.06421-84-6624Irzilbk62057713 2.16.840.1.016521.3.579.2.91538-31-8155Iqfnpjh00541061 2.16.840.1.741050.3.579.2.73880-47-8266Grerfwg73022303 2.16.840.1.808131.3.579.2.02845-14-5388Syjxzsv49070557 2.16.840.1.916464.3.579.2.58252-35-8949Cxzxpms88395314 2.16.840.1.596336.3.579.2.96864-48-5772Gjduknm36477186 2.16.840.1.227379.3.579.2.00666-30-8796Uqzedwi97388453 2.16.840.1.420625.3.579.2.11736-33-0296Uxnegbw1879115 2.16.840.1.621510.3.579.2.08422-44-9793Svytnwp95218411 2.16.840.1.674748.3.579.2.90230-26-5670Gyfhkgo14367584 2.16.840.1.359496.3.579.2.13107-05-5331Cjdcvwl07418072 2.16.840.1.853942.3.579.2.93287-71-0412Uxrczge06207110 2.16.840.1.553521.3.579.2.64050-19-4823Swehzkk98210235 2.16.840.1.546890.3.579.2.54859-22-4660Rzbyqay89208980 2.16.840.1.037994.3.579.2.35413-00-2171Odguexc12649525 2.16.840.1.915596.3.579.2.42753-61-7892Bcexmhi43315323 2.16.840.1.234102.3.579.2.21278-05-1327Uclpzbm14599062 2.16.840.1.589133.3.579.2.69543-16-5917Aumhenl14055115 2.16.840.1.933553.3.579.2.94437-08-5869Nkkxqwr16799988 2.16.840.1.005278.3.579.2.07473-71-3032Yrgpitf58017986 2.16.840.1.925243.3.579.2.95824-82-0899Nwheylg72922632 2.16.840.1.637388.3.579.2.61848-51-6771Wjyiqfb60302056 2.16.840.1.560449.3.579.2.58303-33-9502Upxdrah46353507 2.16.840.1.975203.3.579.2.88270-55-2584Sbusvxc69779462 2.16.840.1.215901.3.579.2.89033-37-1243Pgqymbd68404707 2.16.840.1.217227.3.579.2.60127-00-7700Zadgzsz17397209 2.16.840.1.602068.3.579.2.97415-29-5519Hpwsqpg47972805 2.16.840.1.409002.3.579.2.95943-78-1549Hlqshjn83614148 2.16.840.1.201590.3.579.2.37138-38-5991Vfzzhpf38268282 2.16.840.1.313930.3.579.2.82982-50-2001Jshbuoj66297063 2.16.840.1.515753.3.579.2.344659-26-7766Xoopryf13291739 2.16.840.1.884131.3.579.2.862212-08-9715Hspkjww20832874 2.16.840.1.254401.3.579.2.276475-31-6287Ndcmrau86924185 2.16.840.1.699601.3.579.2.007284-47-9423Agixtwu4443284 2..840.1.435712.3.579.2.889122-71-5127Ybdcbwl2319371 2..840.1.636494.3.579.2.796934-55-6289Uifpqsx3361215 2..840.1.995513.3.579.2.147329-47-5552Yexofva8737366 2..840.1.226[id number] Social History DateTypeDetailFacilityStart: 02-04-2021 End: 44-67-5306Tfhpphq smoking statusEx-smoker (finding)[facility] HospitalComment on above:denies useStart: 41-47-7625Douhpcj smoking statusNever [facility] HospitalComment on above:denies useStart: 03-16-2024 End: 25-33-4507Qrx Assigned At BirthFemaleFMemorial Health System Selby General HospitalTobacco smoking status NHISTobacco smoking consumption unknownMetroHealthStart: 94-55-9730Jeg Assigned At BirthNot on fileMetroHealthStart: 42-38-4689Gcwoeeu smoking status NHISNever smoked tobaccoNOMS HealthcareStart: 03-16-2024 End: 79-12-0478Bhzvcye use and exposureSmokeless tobacco non-userNOMS Healthcare Start: 05-10-2024 End: 06-86-8224Zaxwiaspx beverage intakeLifetime non-drinker (finding)[facility] HealthcareStart: 03-16-2024 End: 45-07-5416Vkognfk of Social functionNOMS HealthcareHow often to you have a drink containing alcohol?NeverNOMS HealthcareHistory of tobacco useCurrent smokerNOMS HealthcareHistory of tobacco useCigarette SmokerNOMS HealthcareStart: 03-14-2025 End: 39-62-1788Ceooetlup beverage intakeEx-drinker (finding)[facility] HealthcareSex Female (finding)[facility] Hospitaltart: 76-11-2179Yum Assigned At [facility] Medical Equipment Procedure CodeEquipment CodeEquipment Original TextEquipment IdentifierDates BLOOD GLUCOSE METER TEST STRIPS, See Instructions, 100 EA, 11, BLOOD GLUCOSE METER TEST STRIPS OF CHOICE, OR SPECIFIED BY INSURANCE. USE WITH METER ONCE DAILY. DX E11.9, [id number], Supply, 152.4, cm, 07/12/23 11:38:00 EDT, Height/Length Dosing, 51.8, kg, 07/12/23 11:38:00 EDT, Weight DosingStart: 67-59-0170FXLWQXK OF CHOICE OR SPECIFIED BY INSURANCE., See Instructions, 100 EA, 11, USE TO TEST BLOOD GLUCOSE ONCE DAILY FOR DX E11.9, [id number], Supply, 152.4, cm, 07/12/23 11:38:00 EDT, Height/Length Dosing, 51.8, kg, 07/12/23 11:38:00 EDT, Weight DosingStart: 73-84-1792JS UF Nanno pen needle 4mm x32G, See Instructions, 500 EA, 3, Use one pen needle with each administration of lantus BID and humalog TID. Dx E11.9, [id number], Supply, 152, cm, 09/15/23 19:17:00 EDT, Height/Length Dosing, 44.9, kg, 09/15/23 19:17:00 EDT, Weight DosingStart: 74-65-1046GHWJV GLUCOSE METER TEST STRIPS, See Instructions, 100 EA, 11, BLOOD GLUCOSE METER TEST STRIPS OF CHOICE, OR SPECIFIED BY INSURANCE. USE WITH METER ONCE DAILY. DX E11.9, [id number], Supply, 152.4, cm, 07/12/23 11:38:00 EDT, Height/Length Dosing, 51.8, kg, 07/12/23 11:38:00 EDT, Weight DosingStart: [id number] OF CHOICE OR SPECIFIED BY INSURANCE., See Instructions, 100 EA, 11, USE TO TEST BLOOD GLUCOSE ONCE DAILY FOR DX E11.9, [id number], Supply, 152.4, cm, 07/12/23 11:38:00 EDT, Height/Length Dosing, 51.8, kg, 07/12/23 11:38:00 EDT, Weight DosingStart: [id number] UF Nanno pen needle 4mm x32G, See Instructions, 500 EA, 3, Use one pen needle with each administration of lantus BID and humalog TID. Dx E11.9, [id number], Supply, 152, cm, 09/15/23 19:17:00 EDT, Height/Length Dosing, 44.9, kg, 09/15/23 19:17:00 EDT, Weight DosingStart: [id number] GLUCOSE METER TEST STRIPS, See Instructions, 100 EA, 11, BLOOD GLUCOSE METER TEST STRIPS OF CHOICE, OR SPECIFIED BY INSURANCE. USE WITH METER ONCE DAILY. DX E11.9, [id number], Supply, 152.4, cm, 07/12/23 11:38:00 EDT, Height/Length Dosing, 51.8, kg, 07/12/23 11:38:00 EDT, Weight DosingStart: [id number] OF CHOICE OR SPECIFIED BY INSURANCE., See Instructions, 100 EA, 11, USE TO TEST BLOOD GLUCOSE ONCE DAILY FOR DX E11.9, [id number], Supply, 152.4, cm, 07/12/23 11:38:00 EDT, Height/Length Dosing, 51.8, kg, 07/12/23 11:38:00 EDT, Weight DosingStart: 98-12-1461BS UF Nanno pen needle 4mm x32G, See Instructions, 500 EA, 3, Use one pen needle with each administration of lantus BID and humalog TID. Dx E11.9, [id number], Supply, 152, cm, 09/15/23 19:17:00 EDT, Height/Length Dosing, 44.9, kg, 09/15/23 19:17:00 EDT, Weight DosingStart: [id number] GLUCOSE METER TEST STRIPS, See Instructions, 100 EA, 11, BLOOD GLUCOSE METER TEST STRIPS OF CHOICE, OR SPECIFIED BY INSURANCE. USE WITH METER ONCE DAILY. DX E11.9, [id number], Supply, 152.4, cm, 07/12/23 11:38:00 EDT, Height/Length Dosing, 51.8, kg, 07/12/23 11:38:00 EDT, Weight DosingStart: [id number] OF CHOICE OR SPECIFIED BY INSURANCE., See Instructions, 100 EA, 11, USE TO TEST BLOOD GLUCOSE ONCE DAILY FOR DX E11.9, [id number], Supply, 152.4, cm, 07/12/23 11:38:00 EDT, Height/Length Dosing, 51.8, kg, 07/12/23 11:38:00 EDT, Weight DosingStart: 66-32-3850PR UF Nanno pen needle 4mm x32G, See Instructions, 500 EA, 3, Use one pen needle with each administration of lantus BID and humalog TID. Dx E11.9, [id number], Supply, 152, cm, 09/15/23 19:17:00 EDT, Height/Length Dosing, 44.9, kg, 09/15/23 19:17:00 EDT, Weight DosingStart: [id number] GLUCOSE METER TEST STRIPS, See Instructions, 100 EA, 11, BLOOD GLUCOSE METER TEST STRIPS OF CHOICE, OR SPECIFIED BY INSURANCE. USE WITH METER ONCE DAILY. DX E11.9, [id number], Supply, 152.4, cm, 07/12/23 11:38:00 EDT, Height/Length Dosing, 51.8, kg, 07/12/23 11:38:00 EDT, Weight DosingStart: 38-57-2120SIHDPHT OF CHOICE OR SPECIFIED BY INSURANCE., See Instructions, 100 EA, 11, USE TO TEST BLOOD GLUCOSE ONCE DAILY FOR DX E11.9, [id number], Supply, 152.4, cm, 07/12/23 11:38:00 EDT, Height/Length Dosing, 51.8, kg, 07/12/23 11:38:00 EDT, Weight DosingStart: 27-41-3080LK UF Nanno pen needle 4mm x32G, See Instructions, 500 EA, 3, Use one pen needle with each administration of lantus BID and humalog TID. Dx E11.9, [facility] #[id number], Supply, 152, cm, 09/15/23 19:17:00 EDT, Height/Length Dosing, 44.9, kg, 09/15/23 19:17:00 EDT, Weight DosingStart: 22-19-9068KLBBL GLUCOSE METER TEST STRIPS, See Instructions, 100 EA, 11, BLOOD GLUCOSE METER TEST STRIPS OF CHOICE, OR SPECIFIED BY INSURANCE. USE WITH METER ONCE DAILY. DX E11.9, [id number], Supply, 152.4, cm, 07/12/23 11:38:00 EDT, Height/Length Dosing, 51.8, kg, 07/12/23 11:38:00 EDT, Weight DosingStart: 78-51-4813FRMPCXT OF CHOICE OR SPECIFIED BY INSURANCE., See Instructions, 100 EA, 11, USE TO TEST BLOOD GLUCOSE ONCE DAILY FOR DX E11.9, [id number], Supply, 152.4, cm, 07/12/23 11:38:00 EDT, Height/Length Dosing, 51.8, kg, 07/12/23 11:38:00 EDT, Weight DosingStart: 72-73-5643NG UF Nanno pen needle 4mm x32G, See Instructions, 500 EA, 3, Use one pen needle with each administration of lantus BID and humalog TID. Dx E11.9, [id number], Supply, 152, cm, 09/15/23 19:17:00 EDT, Height/Length Dosing, 44.9, kg, 09/15/23 19:17:00 EDT, Weight DosingStart: 00-50-2009YGNNB GLUCOSE METER TEST STRIPS, See Instructions, 100 EA, 11, BLOOD GLUCOSE METER TEST STRIPS OF CHOICE, OR SPECIFIED BY INSURANCE. USE WITH METER ONCE DAILY. DX E11.9, [id number], Supply, 152.4, cm, 07/12/23 11:38:00 EDT, Height/Length Dosing, 51.8, kg, 07/12/23 11:38:00 EDT, Weight DosingStart: 71-71-3651SWBSSGB OF CHOICE OR SPECIFIED BY INSURANCE., See Instructions, 100 EA, 11, USE TO TEST BLOOD GLUCOSE ONCE DAILY FOR DX E11.9, [id number], Supply, 152.4, cm, 07/12/23 11:38:00 EDT, Height/Length Dosing, 51.8, kg, 07/12/23 11:38:00 EDT, Weight DosingStart: 44-42-6808OC UF Nanno pen needle 4mm x32G, See Instructions, 500 EA, 3, Use one pen needle with each administration of lantus BID and humalog TID. Dx E11.9, [id number], Supply, 152, cm, 09/15/23 19:17:00 EDT, Height/Length Dosing, 44.9, kg, 09/15/23 19:17:00 EDT, Weight DosingStart: 86-23-4183YXRNU GLUCOSE METER TEST STRIPS, See Instructions, 100 EA, 11, BLOOD GLUCOSE METER TEST STRIPS OF CHOICE, OR SPECIFIED BY INSURANCE. USE WITH METER ONCE DAILY. DX E11.9, [id number], Supply, 152.4, cm, 07/12/23 11:38:00 EDT, Height/Length Dosing, 51.8, kg, 07/12/23 11:38:00 EDT, Weight DosingStart: 77-63-9723EQUWUOA OF CHOICE OR SPECIFIED BY INSURANCE., See Instructions, 100 EA, 11, USE TO TEST BLOOD GLUCOSE ONCE DAILY FOR DX E11.9, [id number], Supply, 152.4, cm, 07/12/23 11:38:00 EDT, Height/Length Dosing, 51.8, kg, 07/12/23 11:38:00 EDT, Weight DosingStart: 41-54-5582GF UF Nanno pen needle 4mm x32G, See Instructions, 500 EA, 3, Use one pen needle with each administration of lantus BID and humalog TID. Dx E11.9, [id number], Supply, 152, cm, 09/15/23 19:17:00 EDT, Height/Length Dosing, 44.9, kg, 09/15/23 19:17:00 EDT, Weight DosingStart: 59-22-0281WLLEX GLUCOSE METER TEST STRIPS, See Instructions, 100 EA, 11, BLOOD GLUCOSE METER TEST STRIPS OF CHOICE, OR SPECIFIED BY INSURANCE. USE WITH METER ONCE DAILY. DX E11.9, [id number], Supply, 152.4, cm, 07/12/23 11:38:00 EDT, Height/Length Dosing, 51.8, kg, 07/12/23 11:38:00 EDT, Weight DosingStart: 04-75-9772CAAEMRX OF CHOICE OR SPECIFIED BY INSURANCE., See Instructions, 100 EA, 11, USE TO TEST BLOOD GLUCOSE ONCE DAILY FOR DX E11.9, [facility]/pharmacy #[id number], Supply, 152.4, cm, 07/12/23 11:38:00 EDT, Height/Length Dosing, 51.8, kg, 07/12/23 11:38:00 EDT, Weight DosingStart: 34-65-3148NB UF Nanno pen needle 4mm x32G, See Instructions, 500 EA, 3, Use one pen needle with each administration of lantus BID and humalog TID. Dx E11.9, [facility]/pharmacy #[id number], Supply, 152, cm, 09/15/23 19:17:00 EDT, Height/Length Dosing, 44.9, kg, 09/15/23 19:17:00 EDT, Weight DosingStart: 33-17-1395ZQJVQ GLUCOSE METER TEST STRIPS, See Instructions, 100 EA, 11, BLOOD GLUCOSE METER TEST STRIPS OF CHOICE, OR SPECIFIED BY INSURANCE. USE WITH METER ONCE DAILY. DX E11.9, [facility]/pharmacy #[id number], Supply, 152.4, cm, 07/12/23 11:38:00 EDT, Height/Length Dosing, 51.8, kg, 07/12/23 11:38:00 EDT, Weight DosingStart: 99-47-1646XBHRCMM OF CHOICE OR SPECIFIED BY INSURANCE., See Instructions, 100 EA, 11, USE TO TEST BLOOD GLUCOSE ONCE DAILY FOR DX E11.9, [id number], Supply, 152.4, cm, 07/12/23 11:38:00 EDT, Height/Length Dosing, 51.8, kg, 07/12/23 11:38:00 EDT, Weight DosingStart: 45-65-2951KN UF Nanno pen needle 4mm x32G, See Instructions, 500 EA, 3, Use one pen needle with each administration of lantus BID and humalog TID. Dx E11.9, [facility]/pharmacy #[id number], Supply, 152, cm, 09/15/23 19:17:00 EDT, Height/Length Dosing, 44.9, kg, 09/15/23 19:17:00 EDT, Weight DosingStart: 75-53-3403UXENE GLUCOSE METER TEST STRIPS, See Instructions, 100 EA, 11, BLOOD GLUCOSE METER TEST STRIPS OF CHOICE, OR SPECIFIED BY INSURANCE. USE WITH METER ONCE DAILY. DX E11.9, [id number], Supply, 152.4, cm, 07/12/23 11:38:00 EDT, Height/Length Dosing, 51.8, kg, 07/12/23 11:38:00 EDT, Weight DosingStart: 77-16-8162ZQOBFMN OF CHOICE OR SPECIFIED BY INSURANCE., See Instructions, 100 EA, 11, USE TO TEST BLOOD GLUCOSE ONCE DAILY FOR DX E11.9, [id number], Supply, 152.4, cm, 07/12/23 11:38:00 EDT, Height/Length Dosing, 51.8, kg, 07/12/23 11:38:00 EDT, Weight DosingStart: 91-73-9570GD UF Nanno pen needle 4mm x32G, See Instructions, 500 EA, 3, Use one pen needle with each administration of lantus BID and humalog TID. Dx E11.9, [facility]/pharmacy #[id number], Supply, 152, cm, 09/15/23 19:17:00 EDT, Height/Length Dosing, 44.9, kg, 09/15/23 19:17:00 EDT, Weight DosingStart: 17-42-9383OOZHS GLUCOSE METER TEST STRIPS, See Instructions, 100 EA, 11, BLOOD GLUCOSE METER TEST STRIPS OF CHOICE, OR SPECIFIED BY INSURANCE. USE WITH METER ONCE DAILY. DX E11.9, [id number], Supply, 152.4, cm, 07/12/23 11:38:00 EDT, Height/Length Dosing, 51.8, kg, 07/12/23 11:38:00 EDT, Weight DosingStart: 65-09-9806FETMHMS OF CHOICE OR SPECIFIED BY INSURANCE., See Instructions, 100 EA, 11, USE TO TEST BLOOD GLUCOSE ONCE DAILY FOR DX E11.9, [id number], Supply, 152.4, cm, 07/12/23 11:38:00 EDT, Height/Length Dosing, 51.8, kg, 07/12/23 11:38:00 EDT, Weight DosingStart: 29-25-7078RP UF Nanno pen needle 4mm x32G, See Instructions, 500 EA, 3, Use one pen needle with each administration of lantus BID and humalog TID. Dx E11.9, [id number], Supply, 152, cm, 09/15/23 19:17:00 EDT, Height/Length Dosing, 44.9, kg, 09/15/23 19:17:00 EDT, Weight DosingStart: 07-07-6116HDMTG GLUCOSE METER TEST STRIPS, See Instructions, 100 EA, 11, BLOOD GLUCOSE METER TEST STRIPS OF CHOICE, OR SPECIFIED BY INSURANCE. USE WITH METER ONCE DAILY. DX E11.9, [facility]/pharmacy #[id number], Supply, 152.4, cm, 07/12/23 11:38:00 EDT, Height/Length Dosing, 51.8, kg, 07/12/23 11:38:00 EDT, Weight DosingStart: 26-57-0974KMTJIMK OF CHOICE OR SPECIFIED BY INSURANCE., See Instructions, 100 EA, 11, USE TO TEST BLOOD GLUCOSE ONCE DAILY FOR DX E11.9, [id number], Supply, 152.4, cm, 07/12/23 11:38:00 EDT, Height/Length Dosing, 51.8, kg, 07/12/23 11:38:00 EDT, Weight DosingStart: 41-00-0995Ticzl: 07-14-2023 End: 00-16-3681PE UF Nanno pen needle 4mm x32G, See Instructions, 500 EA, 3, Use one pen needle with each administration of lantus BID and humalog TID. Dx E11.9, [id number], Supply, 152, cm, 09/15/23 19:17:00 EDT, Height/Length Dosing, 44.9, kg, 09/15/23 19:17:00 EDT, Weight DosingStart: 29-91-5074PGUJA GLUCOSE METER TEST STRIPS, See Instructions, 100 EA, 11, BLOOD GLUCOSE METER TEST STRIPS OF CHOICE, OR SPECIFIED BY INSURANCE. USE WITH METER ONCE DAILY. DX E11.9, [id number], Supply, 152.4, cm, 07/12/23 11:38:00 EDT, Height/Length Dosing, 51.8, kg, 07/12/23 11:38:00 EDT, Weight DosingStart: 68-03-6877PXJLNLO OF CHOICE OR SPECIFIED BY INSURANCE., See Instructions, 100 EA, 11, USE TO TEST BLOOD GLUCOSE ONCE DAILY FOR DX E11.9, [id number], Supply, 152.4, cm, 07/12/23 11:38:00 EDT, Height/Length Dosing, 51.8, kg, 07/12/23 11:38:00 EDT, Weight DosingStart: 74-49-3120IE UF Nanno pen needle 4mm x32G, See Instructions, 500 EA, 3, Use one pen needle with each administration of lantus BID and humalog TID. Dx E11.9, [id number], Supply, 152, cm, 09/15/23 19:17:00 EDT, Height/Length Dosing, 44.9, kg, 09/15/23 19:17:00 EDT, Weight DosingStart: 31-90-0425IHHEH GLUCOSE METER TEST STRIPS, See Instructions, 100 EA, 11, BLOOD GLUCOSE METER TEST STRIPS OF CHOICE, OR SPECIFIED BY INSURANCE. USE WITH METER ONCE DAILY. DX E11.9, [id number], Supply, 152.4, cm, 07/12/23 11:38:00 EDT, Height/Length Dosing, 51.8, kg, 07/12/23 11:38:00 EDT, Weight DosingStart: 66-46-0277CSEREGS OF CHOICE OR SPECIFIED BY INSURANCE., See Instructions, 100 EA, 11, USE TO TEST BLOOD GLUCOSE ONCE DAILY FOR DX E11.9, [id number], Supply, 152.4, cm, 07/12/23 11:38:00 EDT, Height/Length Dosing, 51.8, kg, 07/12/23 11:38:00 EDT, Weight DosingStart: 07-14-2023 Goals DatePatient GoalDesired Activity/Byqsk00-17-1420 Functional Status JykuPbxerpbahhHlfpdqCagorpan30-89-1251Jycixttaee StatusN/[facility]24Functional StatusN/NATEMem[facility]07-18-2024 [facility]24Functional StatusN/A [facility] CenterBruabf86-11-1134Simqbtqfsk StatusN/NATEMem[facility]10-18-2023Function[facility] Clinical Notes 04-09-2022 to 09-27-2025 Note Date & LfnbZvrwMxdhnppc64-13-2023 History of Present illness Narrative* Evita Fitzgerald, DO - 09/27/2025 3:15 PM EDT Images from the original note were not included. Michelle Nash presents today for follow up on cough [...] Wt 147 lb SpO2 93% BMI 28.71 kg/m Exam: Heart: regular rate Lungs: clear to [...] October 03, 2025. ILD (interstitial lung disease) ([facility]) - XR chest 2 views; Future Cough [...] performed. The order was sent to the [facility] today at her request. Follow up [...] Disp: , Rfl: Blood Glucose Monitoring Suppl ([facility] [employer] [facility] Verio Flex System) w/Device kit, , Disp: , Rfl: cetirizine-pseudoephedrine (ZyrTEC-D) 5-120 MG 12 hr tablet, Take 1 tablet by mouth in the morning and 1 tablet before bedtime., Disp: , Rfl: cholecalciferol (Vitamin D3) 25 MCG (1000 UT) tablet, 1 (one) time each day at the same time, Disp:, Rfl: Continuous Glucose Pump Room Operator (FreeStyle Eduar 2 [place]) device, , Disp: , Rfl: Continuous Glucose Sensor (FreeStyle Eduar 2 Sensor) [facility] [place] , Disp: , Rfl: gabapentin (Neurontin) 100 [...] UNITS), Disp: 15 mL, Rfl: 1 Lancets (OneTouch Delica Plus [id number]) mis, , Disp: , Rfl: losartan (Cozaar) 50 [...] 1. added per OP CDI policy. Bronchiolectasis (HCC) 09/27/2025 Centrilobular emphysema (HCC) 03/06/2025 noted in 12/05/2024 Pulmonology Consult Note page 1. added per OP CDI policy. 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 added per OP CDI policy. [facility] current use of insulin ([facility]) 01/03/2024 Current Medication List includes Lantus and Humalog. added per OP CDI policy. 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 added per OP CDI policy. Nonexudative age-related macular degeneration, bilateral, early dry stage 06/15/2024 OAB (overactive bladder) Osteopenia Other half-way (current) drug therapy 06/22/2024 Other specified disorders [...] per 09/28/2023 query response. SAH (subarachnoid hemorrhage) ([facility]) 01/03/2024 SBO (small bowel obstruction) ([facility]) 03/06/2025 SDH (subdural hematoma) ([facility]) 01/03/2024 Seasonal allergies 03/06/2025 Shoulder pain, right 03/06/2025 Stress incontinence (female) (male) 06/22/2024 Tumor pancreas Type 2 diabetes mellitus (HCC) 01/03/2024 linked DM with HLD per OP CDI policy. Type 2 diabetes mellitus with hyperglycemia ([facility]) 2013 Type 2 diabetes mellitus with other specified complication ([facility]) 06/15/2024 Undernutrition 09/26/2025 Unspecified intestinal obstruction, unspecified as to partial versus complete obstruction ([facility]) 06/15/2024 Uterine prolapse UTI symptoms 03/06/2025 Vitamin D deficiency Weakness 03/06/2025 Yeast infection 03/06/2025 documented in this encounterSaint [facility] University [id number] NotePatient Education Cardiovascular Managing Your Hypertension Hypertension, also called high blood pressure, is when the force of the blood pressing against the camara of the arteries is too strong. Arteries are blood vessels that carry blood from your heart throughout your body. Hypertension forces the heart to work harder to pump blood and may cause the arteries to become narrow or stiff. Understanding blood pressure readings A blood pressure reading includes a higher number over a lower number: ??? The first, or top, number is called the systolic pressure. It is a measure of the pressure in your arteries as your heart beats. ??? The second, or bottom number, is called the diastolic pressure. It is a measure of the pressurein your arteries as the heart relaxes. For most people, a normal blood pressure is below 120/80. Your personal target blood pressure may vary depending on your medical conditions, your age, and other factors. Blood pressure is classified into four stages. Based on your blood pressure reading, your health care provider may use the following stages to determine what type of treatment you need, if any. Systolic pressure and diastolic pressure are measured in a unit called millimeters of mercury (mmHg). Normal ??? Systolic pressure: below 120. ??? Diastolic pressure: below 80. Elevated ??? Systolic pressure: 120?129. ??? Diastolic pressure: below 80. Hypertension stage 1 ??? Systolic pressure: 130?139. ??? Diastolic pressure: 80?89. Hypertension stage 2 ??? Systolic pressure: 140 or above. ??? Diastolic pressure: 90 or above. How can this condition affect me? Managing your hypertension is very important. Over time, hypertension can damage the arteries and decrease blood flow to parts of the body, including the brain, heart, and kidneys. Having untreated or uncontrolled hypertension can lead to: ??? A heart attack. ??? A stroke. ??? A weakened blood vessel (aneurysm). ??? Heart failure. ??? Kidney damage. ??? Eye damage. ??? Memory and concentration problems. ??? Vascular dementia. What actions can I take to manage this condition? Hypertension can be managed by making lifestyle changes and possibly by taking medicines. Your health care provider will help you make a plan to bring your blood pressure within a normal range. You may be referred for counseling on a healthy diet and physical activity. Nutrition ??? Eat a diet that is high in fiber and potassium, and low in salt (sodium), added sugar, and fat.An example eating plan is called the DASH diet. DASH stands for Dietary Approaches to Stop Hypertension. To eat this way: ? Eat plenty of fresh fruits and vegetables. Try to fill one-half of your plate at each meal with fruits and vegetables. ? Eat whole grains, such as whole-wheat pasta, brown rice, or whole-grain bread. Fill about one-fourth of your plate with whole grains. ? Eat low-fat dairy products. ? Avoid fatty cuts of meat, processed or cured meats, and poultry with skin. Fill about one-fourth of your plate with lean proteins such as fish, chicken without skin, beans, eggs, and tofu. ? Avoid pre-made and processed foods. These tend to be higher in sodium, added sugar, and fat. ??? Reduce your daily sodium intake. Many people with hypertension should eat less than 1,500 mg ofsodium a day. Lifestyle ??? Work with your health care provider to maintain a healthy body weight or to lose weight. Ask what an ideal weight is for you. ??? Get at least 30 minutes of exercise that causes your heart to beat faster (aerobic exercise) most days of the week. Activities may include walking, swimming, or biking. ??? Include exercise to strengthen your muscles (resistance exercise), such as weight lifting, as part of your weekly exercise routine. Try to do these types of exercises for 30 minutes at least 3 days a week. ??? Do not use any products that contain nicotine or tobacco. These products include cigarettes, chewing tobacco, and vaping devices, such as e-cigarettes. If you need help quitting, ask your health care provider. ??? Control any long-term (chronic) conditions you have, such as high cholesterol or diabetes. ??? Identify your sources of stress and find ways to manage stress. This may include meditation, deep breathing, or making time for fun activities. Alcohol use ??? Do not drink alcohol if: ? Your health care provider tells you not to drink. ? You are , may be , or are planning to become . ??? If you drink alcohol: ? Limit how much you have to: ? 0?1 drink a day for women. ? 0?2 drinks a day for men. ? Know how much alcohol is in your drink. In the [place] one drink equals one 12 oz bottle of beer (355 mL), one 5 oz glass of wine (148 mL), or one 1? oz glass of hard liquor (44 mL). Medicines Your health care provider may prescribe medicine if lifestyle changes are not enough (more content not included)...[facility]09-09-2025 History of Present illness Narrative* Duc Joshi MD - 08/07/2025 11:10 AM EDT Michelle Nash is a 84 y.o. female No ref. provider found presents with chief complaint of Diabetes and Follow-up (LAB) HPI: IM :07/2025 Follow-up Visit 08/07/2025 A1c 8.1 blood sugar 225, CGM 0-59-41 avg 171 lab total cholesterol 170, triglycerides 109, LDL 106, albumin over creatinine 21, C-peptide 1, vitamin-D 22 she is taking 2 tablets in the morning 1 after noon plus multivitamin, I told her to stop vitamin vitamin-D completely 03/2025 History of Present Illness The patient is a 84-year-old female who presents for evaluation of diabetes. She continues her regimen of Lantus, administering 10 units in the morning and an additional 10 units at night. Additionally, she utilizes short-acting insulin, taking 3 units as needed. Interim history: 11/2024 Follow up visit 12/12/2024 She is currently on Lantus 10 twice a day and Humalog 3 units breakfast, dinner plus scale #1. A1c in our office 7.7, blood sugar 141. had low. CGM AVG 14 days 162, 30 days 168. Interim history: 07/2024. Follow up visit 08/15/2024. She is currently on Lantus 10 twice a day and Humalog 3 units breakfast, dinner plus scale #1. A1c in our office 7.3, blood sugar 116. had low. CGM -14 AVG 144. off Jardiance by hospital. Interim history: 04/2024. Followup visit 05/09/2024. average 159 in 30 days. She is currently on Lantus 10 twice a day and Humalog 3 units breakfast, dinner plus scale #1. A1c in our office 7.3, blood sugar 141. had some laws Interim history: 01/2024. Followup visit 02/08/2024. CGM: 0 in low range, 74 in good range, 26 in high range, average 154. She is currently on Lantus 10 twice a day and Humalog 3 units breakfast, dinner plus scale #1. A1c in our office 8.2, blood sugar 145. Less variations in her blood sugars than before. Interim history: 12/2023. Followup visit 01/11/2024. She has hypoglycemia after I admit her, went to the hospital. They changed her insulin back to Lantus 10 units and sliding scale only which is still not enough. Her CGM with daughter holding the kamlesh on her phone. Still high. Blood sugar in our office 330 so I told her we need to go back to change Lantus, maybe 10 twice a day and cut back Humalog to 30 units twice a day,breakfast, supper, plus sliding scale #1. Instructions given and will continue with Jardiance back.No new labs. I already sent CGM from last visit and I will see her in six weeks for followup. HPI: 11/2023 New patient sent from Dr. Natacha Oneill for uncontrolled diabetes. A1c in our office 8.2, blood . She has had diabetes for almost 10 years and she had partial pancreatectomy. She is currently on Lantus 10 units twice a day; Humalog sliding scale, 2 units for each 50 above 150, averages 4 units twice a day; and Jardiance 10 mg. Cannot use metformin. Kidney function within normal limits. SUBJECTIVE: MEDICATIONS: Current Outpatient Medications Medication Instructions albuterol HFA 90 mcg/act inhaler atorvastatin (LIPITOR) 10 mg BD Pen Needle Xiao 2nd Gen 32G X 4 MM [facility] [place] Blood Glucose Monitoring Suppl ([employer] Verio Flex System) w/Device kit budesonide-formoterol (Symbicort) 160-4.5 MCG/ACT inhaler Every 12 hours cetirizine-pseudoephedrine (ZyrTEC-D) 5-120 MG 12 hr tablet 1 tablet, 2 times daily cholecalciferol (Vitamin D3) 25 MCG (1000 UT) tablet Every 24 hours Continuous Glucose Pump Room Operator (FreeStyle Eduar 2 [place]) device Continuous Glucose Sensor (FreeStyle Eduar 2 Sensor) misc fluconazole (DIFLUCAN) 150 mg, Once gabapentin (NEURONTIN) 200 mg, Oral, Nightly guaiFENesin-codeine (Robitussin-AC) 100-10 MG/5ML syrup Gvoke HypoPen 1-Pack 1 mg, Subcutaneous, Once as needed Gvoke HypoPen 2-Pack 1 mg, Once as needed HumaLOG KWIKPEN 100 UNIT/ML injection ibandronate (BONIVA) 150 mg, Oral, Every 30 days, Take in morning with full glass of water on an empty stomach. No food, drink, meds, or lying down for 60 minutes after. insulin glargine (Lantus SoloStar) 100 UNIT/ML pen INJECT 10 UNITS UNDER THE SKIN EVERY DAY AT BEDTIME Lancets ([employer] Delica Plus [id number]) misc losartan (COZAAR) 50 mg, Daily RT Multiple Vitamins-Minerals (PRESERVISION AREDS PO) Take by mouth omeprazole (PRILOSEC) 20 mg, Daily before breakfast propranolol (INDERAL) 60 mg, Daily RT tiZANidine (ZANAFLEX) 4 mg, Every 6 hours PRN traZODone (Desyrel) 50 MG tablet ALLERGIES: Allergies Allergen Reactions Aminolevulinic Acid Other AOF Nitroglycerin Other low blood pressure Past Medical History: Diagnosis Date Abnormal mammogram 03/06/2025 Anxiety 01/03/2024 Arthritis Arthritis of back 03/06/2025 Atherosclerosis of abdominal aorta 03/06/2025 added per 02/11/2025 query response. Back pain 03/06/2025 BMI 26.0-26.9,adult 03/06/2025 Bronchiectasis (HCC) 03/06/2025 noted in 12/05/2024 Pulmonology Consult Note page 1. added per OP CDI policy. Centrilobular emphysema (HCC) 03/06/2025 noted in 12/05/2024 Pulmonology Consult Note page 1. added per OP CDI policy. Constipation 03/06/2025 Cough 03/06/2025 Cramps of lower extremity 03/06/2025 Diabetes (HCC) Dizziness 03/06/2025 Female cystocele Former smoker 01/03/2024 GERD (gastroesophageal reflux disease) 01/03/2024 Heartburn 03/06/2025 History of small bowel obstruction 03/06/2025 added per 02/11/2025 query response. 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 added per OP CDI policy. [facility] [facility]) 01/03/2024 Current Medication List includes Lantus and Humalog. added per OP CDI policy. [facility] current use of systemic steroids 01/03/2024 Malnutrition ([facility]) 03/06/2025 Migraine 03/06/2025 Migraines Multiple falls 01/03/2024 Nonexudative age-related macular degeneration 01/03/2024 noted in 05/03/2023 Diabetic Eye Exam page 3. added per OP CDI policy. 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 Peripheral vascular insufficiency 03/06/2025 Piriformis syndrome of left side 03/06/2025 Pitting edema 03/06/2025 Recurrent major depression in full remission 01/03/2024 added per 09/28/2023 query response. SAH (subarachnoid hemorrhage) ([facility]) 01/03/2024 SBO (small bowel obstruction) ([facility]) 03/06/2025 SDH (subdural hematoma) ([facility]) 01/03/2024 Seasonal allergies 03/06/2025 Shoulder pain, right 03/06/2025 Tumor pancreas Type 2 diabetes mellitus ([facility]) 01/03/2024 linked DM with HLD per OP CDI policy. Type 2 diabetes mellitus with hyperglycemia ([facility]) 2013 Uterine prolapse UTI symptoms 03/06/2025 Vitamin D deficiency Weakness 03/06/2025 Yeast infection 03/06/2025 Past Surgical History: Procedure Laterality Date BLADDER SURGERY ENDOMETRIAL BIOPSY EYE SURGERY Bilateral eye lift, cataracts IR KYPHOPLASTY THORACIC 06/10/2020 PANCREAS SURGERY Tumor removed TUBAL LIGATION REVIEW OF SYMPTOMS: 14 POINT OF SYSTEM REVIEWED AND NEGATIVE OBJECTIVE: Constitutional: Afebrile @ home; no weakness or night sweats SKIN: No change in skin color; no itching, rash or lesions; no hair loss; HEENT: No HAs or injury; no dizziness; No difficulty with vision; no eye pain, discharge or lesions; no hearing loss or difficulty; no nasal discharge, NECK: No pain, limitation of motion, lumps or swollen glands RESP: No cough, wheezing or difficulty breathing. No CP with breathing; CARDIO: No CP , SOB or fatigue, No edema, palpitations or dyspnea with exertion GI: No N/V/D or abd. pain; good appetite with no recent change. No heart burn, liver or gallbladderdisease; no rectal bleeding or pain : No urinary pain , frequency or odor. MUSCULOSKELETAL: No muscle pain or cramps; no extremity weakness.No joint pain, stiffness, swellingor limitation of movement NEUROLOGY: No H/O seizures, stroke or fainting. No weakness, tremors. Hematology: No bleeding problems or excessive bruising ENDOCRINE: No increase in hunger, thirst or urination; admits compliance to medical management plan Feet: numbness tingling yes , ulcers or skin break no Lab Results Component Value Date HGBA1C 8.1 08/07/2025 HGBA1C 7.7 04/10/2025 HGBA1C 7.7 12/12/2024 Lab Results Component Value Date GLU 225 08/07/2025 GLU 116 (H) 07/23/2025 GLU 171 04/10/2025 Visit Vitals BP 100/68 Pulse 65 Resp 16 Ht 5' Wt 141 lb SpO2 97% BMI 27.54 kg/m Smoking Status Former BSA 1.65 m 12/12/2024 11:20 AM 02/19/2025 9:44 AM 03/14/2025 9:00 AM 04/10/2025 11:22 AM 05/22/2025 1:00 PM 07/19/2025 1:56 PM 08/07/2025 11:12 AM Vitals BMI 26.37 kg/m2 26.17 kg/m2 25.78 kg/m2 26.95 kg/m2 26.95 kg/m2 26.37 kg/m2 27.54 kg/m2 BSA (m2) 1.61 m2 1.6 m2 1.59 m2 1.63 m2 1.63 m2 1.61 m2 1.65 m2 Systolic 110 108 116 130 128 122 100 Diastolic 86 60 86 82 60 78 68 Heart Rate 56 58 59 61 67 65 SpO2 98 % 97 % 97 % 97 % 97 % Resp 16 16 16 Height (in) 5' 5' 5' 5' 5' 5' Weight (lb) 135 134 132 138 138 135 141 Visit Report Report Report Report Report Report Report ASSESSMENT AND PLAN: Assessment/Plan Diagnoses and all orders for this visit: Type 2 diabetes mellitus with hyperglycemia, with long-term current use of insulin (HCC) - POCT glucose manually resulted - POCT glycosylated hemoglobin (Hb A1C) docked device - glucagon (Gvoke HypoPen 1-Pack) 1 MG/0.2ML injection; Inject 0.2 mL (1 mg) under the skin 1 (one)time if needed for low blood sugar We will continue with Lantus 10 units twice a day, Humalog 3 units every meal. Insulin long-term use (HCC) Encounter for dietary consultation Vitamin D deficiency Vitamin-D in toxic level 122 on 06/2025, told her to stop supplement 2 tablets in the morning 1 after noon, it is okay to continue with multivitamin. Hyperlipemia, mixed Hypoglycemia - glucagon (Gvoke HypoPen 1-Pack) 1 MG/0.2ML injection; Inject 0.2 mL (1 mg) under the skin 1 (one)time if needed for low blood sugar Follow up in about 4 months (around 12/07/2025). documented in this encounterSaint Louis University [id number] History of Present illness Narrative* Evita Fitzgerald, - 07/19/2025 1:45 PM EDT Images from the original note were not included. Michelle Luke Charity presents today for follow up on cough. She has by her at today's office visit.Since her last office visit she has been using gabapentin. She has not notice much of a change in her cough. She does continue to complain of a tickle in her throat. She states her cough is generallyrare thick productive. She denies any current complaints of shortness of breath at rest or with exertion. She denies any chest pain, palpitations, fevers, chills, sweats, or recent unintentional weight changes. She denies any other complaints at this time. Allergies: Allergies Allergen Reactions Aminolevulinic Acid Other AOF Nitroglycerin Other low blood pressure Medications: Current Outpatient Medications: atorvastatin (Lipitor) 10 MG tablet, Take 10 mg by mouth, Disp: , Rfl: BD Pen Needle Xiao 2nd Gen 32G X 4 MM [facility] [place] , Disp: , Rfl: budesonide-formoterol (Symbicort) 160-4.5 MCG/ACT inhaler, every 12 (twelve) hours, Disp: , Rfl: cetirizine-pseudoephedrine (ZyrTEC-D) 5-120 MG 12 hr tablet, Take 1 tablet by mouth in the morning and 1 tablet before bedtime., Disp: , Rfl: cholecalciferol (Vitamin D3) 25 MCG (1000 UT) tablet, 1 (one) time each day at the same time, Disp:, Rfl: Continuous Glucose Pump Room Operator (FreeStyle Eduar 2 [place]) device, , Disp: , Rfl: Continuous Glucose Sensor (FreeStyle Eduar 2 Sensor) [facility] [place] , Disp: , Rfl: Gvoke HypoPen 2-Pack 1 MG/0.2ML injection, Inject 1 mg under the skin 1 (one) time if needed, Disp:, Rfl: HumaLOG KWIKPEN 100 UNIT/ML injection, , Disp: , Rfl: insulin glargine (Lantus SoloStar) 100 UNIT/ML pen, INJECT 10 UNITS UNDER THE SKIN EVERY DAY AT BEDTIME, Disp: 15 mL, Rfl: 1 Lancets ([employer] Delica Plus [id number]) [facility] [place] , Disp: , Rfl: losartan (Cozaar) 50 MG tablet, Take 50 mg by mouth in the morning., Disp: , Rfl: Multiple Vitamins-Minerals (PRESERVISION AREDS PO), Take by mouth, Disp: , Rfl: omeprazole (PriLOSEC) [address] capsule, Take 20 mg by mouth in the morning. Take before meals. Do not crush or chew., Disp: , Rfl: tiZANidine (Zanaflex) 4 MG tablet, Take 4 mg by mouth every 6 (six) hours if needed for muscle spasms, Disp: , Rfl: albuterol HFA 90 mcg/act inhaler, , Disp: , Rfl: Blood Glucose Monitoring Suppl ([facility] [place] [facility] Verio Flex System) w/Device kit, , Disp: , Rfl: fluconazole (Diflucan) 150 MG tablet, Take 150 mg by mouth 1 (one) time (Patient not taking: Reported on 07/19/2025), Disp: , Rfl: gabapentin (Neurontin) 100 MG capsule, Take 2 capsules (200 mg) by mouth at bedtime, Disp: 60 capsule, Rfl: 2 guaiFENesin-codeine (Robitussin-AC) 100-10 MG/5ML syrup, TAKE 5ML BY MOUTH EVERY 6 HOURS NEEDED FOR COUGH (Patient not taking: Reported on 07/19/2025), Disp: , Rfl: guaiFENesin-codeine (Robitussin-AC) 100-10 MG/5ML syrup, Take 5 mL by mouth 4 (four) times a day asneeded for cough for up to 5 days, Disp: 300 mL, Rfl: 0 ibandronate (Boniva) 150 MG tablet, Take 1 tablet (150 mg) by mouth every 30 (thirty) days Take in morning with full glass of water on an empty stomach. No food, drink, meds, or lying down for 60 minutes after., Disp: 1 tablet, Rfl: 11 propranolol (Inderal) 60 MG tablet, Take 60 mg by mouth in the morning., Disp: , Rfl: traZODone (Desyrel) 50 MG tablet, , Disp: , Rfl: Past Medical History: Past Medical History: Diagnosis Date Abnormal mammogram 03/06/2025 Anxiety 01/03/2024 Arthritis Arthritis of back 03/06/2025 Atherosclerosis of abdominal aorta 03/06/2025 added per 02/11/2025 query response. Back pain 03/06/2025 BMI 26.0-26.9,adult 03/06/2025 Bronchiectasis (HCC) 03/06/2025 noted in 12/05/2024 Pulmonology Consult Note page 1. added per OP CDI policy. Centrilobular emphysema (HCC) 03/06/2025 noted in 12/05/2024 Pulmonology Consult Note page 1. added per OP CDI policy. Constipation 03/06/2025 Cough 03/06/2025 Cramps of lower extremity 03/06/2025 Diabetes (HCC) Dizziness 03/06/2025 Female cystocele Former smoker 01/03/2024 GERD (gastroesophageal reflux disease) 01/03/2024 Heartburn 03/06/2025 History of small bowel obstruction 03/06/2025 added per 02/11/2025 query response. 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 added per OP CDI policy. [facility] current use of insulin ([facility]) 01/03/2024 Current Medication List includes Lantus and Humalog. added per OP CDI policy. 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 added per OP CDI policy. 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 Peripheral vascular insufficiency 03/06/2025 Piriformis syndrome of left side 03/06/2025 Pitting edema 03/06/2025 Recurrent major depression in full remission 01/03/2024 added per 09/28/2023 query response. SAH (subarachnoid hemorrhage) ([facility]) 01/03/2024 SBO (small bowel obstruction) ([facility]) 03/06/2025 SDH (subdural hematoma) ([facility]) 01/03/2024 Seasonal allergies 03/06/2025 Shoulder pain, right 03/06/2025 Tumor pancreas Type 2 diabetes mellitus ([facility]) 01/03/2024 linked DM with HLD per OP CDI policy. Type 2 diabetes mellitus with hyperglycemia ([facility]) 2013 Uterine prolapse UTI symptoms 03/06/2025 Vitamin D deficiency Weakness 03/06/2025 Yeast infection 03/06/2025 Social History: Social History Tobacco Use Smoking status: Former Types: Cigarettes Smokeless tobacco: Never Substance Use Topics Alcohol use: Not Currently Vitals: BP 122/78 Pulse 67 Ht 5' Wt 135 lb SpO2 97% BMI 26.37 kg/m Exam: Heart: regular rate Lungs: clear to auscultation bilaterally, no wheezes/rales/rhonchi, no resp distress Extremities: no edema noted, no visible rashes Neuro: alert, oriented x3 Imaging Reviewed: none Assessment/Plan: Diagnoses and all orders for this visit: Chronic cough - gabapentin (Neurontin) 100 MG capsule; Take 2 capsules (200 mg) by mouth at bedtime - guaiFENesin-codeine (Robitussin-AC) 100-10 MG/5ML syrup; Take 5 mL by mouth 4 (four) times a day as needed for cough for up to 5 days Cough -- she does continue to complain of a cough at today's office visit. She has not notice much improvement with the gabapentin. We discussed potentially increase in his medication. She did also ask about a cough syrup. This was sent to the pharmacy for at today's office visit as well. We also discussed that she has been tried on many inhaled medications without much relief. She does have interstitial lung disease which may be playing a role in to her current symptoms, however this has not significantly changed despite her complaints of a cough. At this time I do not feel that additional inhaled medications would be useful. She does continue on reflux medications. She has tried antihistamines in the past without much relief as well. She is agreeable to increasing the gabapentin to see if this increased dose will help her cough. She will follow here in a few months time to reassess her symptoms. ILD -- she does have radiographic evidence of interstitial lung disease. This has not changed significantly despite his complaints of a cough. Follow up in about 2 months (around 09/18/2025) for cough. Evita Fitzgerald DO documented in this encounterSaint Louis University [id number] History of Present illness Narrative* Evita Fitzgerald DO - 05/22/2025 1:00 PM EDT Images from the original note were not included. Michelle Luke Charity presents today for follow up on cough. She was last seen several months ago. She is accompanied by her at today's office visit. She states she does continue with complaints of a cough. Since her last office visit she has continued with use of omeprazole. She did add Zyrtec to her regimen. She has noticed continuation of a cough. She denies any current complaints of shortness of breath at rest with exertion. She states she is no longer using Symbicort or albuterol. She did not feel that these changed her cough at all or any other symptoms. She states that her cough is generally nonproductive, however if it is generally white sputum. She denies any fevers, chills, sweats, or chest discomfort. She does still have some occasional reflux. She does take Tums on rare occasion. She denies any other complaints at this time. Allergies: Allergies Allergen Reactions Aminolevulinic Acid Other AOF Nitroglycerin Other low blood pressure Medications: Current Outpatient Medications: albuterol HFA 90 mcg/act inhaler, , Disp: , Rfl: atorvastatin (Lipitor) 10 MG tablet, Take 10 mg by mouth, Disp: , Rfl: BD Pen Needle Xiao 2nd Gen 32G X 4 MM [facility] [place] , Disp: , Rfl: Blood Glucose Monitoring Suppl ([facility] Verio Flex System) w/Device kit, , Disp: , Rfl: budesonide-formoterol (Symbicort) 160-4.5 MCG/ACT inhaler, every 12 (twelve) hours, Disp: , Rfl: cholecalciferol (Vitamin D3) 25 MCG (1000 UT) tablet, 1 (one) time each day at the same time, Disp:, Rfl: Continuous Glucose Pump Room Operator (FreeStyle Eduar 2 [place]) device, , Disp: , Rfl: Continuous Glucose Sensor (FreeStyle [place] 2 Sensor) [facility] [place] , Disp: , Rfl: fluconazole (Diflucan) 150 MG tablet, Take 150 mg by mouth 1 (one) time, Disp: , Rfl: gabapentin (Neurontin) 100 MG capsule, Take 1 capsule (100 mg) by mouth at bedtime, Disp: 30 capsule, Rfl: 2 guaiFENesin-codeine (Robitussin-AC) 100-10 MG/5ML syrup, TAKE 5ML BY MOUTH EVERY 6 HOURS NEEDED FOR COUGH, Disp: , Rfl: Gvoke HypoPen 2-Pack 1 MG/0.2ML injection, Inject 1 mg under the skin 1 (one) time if needed, Disp:, Rfl: HumaLOG KWIKPEN 100 UNIT/ML injection, , Disp: , Rfl: ibandronate (Boniva) 150 MG tablet, Take 1 tablet (150 mg) by mouth every 30 (thirty) days Take in morning with full glass of water on an empty stomach. No food, drink, meds, or lying down for 60 minutes after., Disp: 1 tablet, Rfl: 11 insulin glargine (Lantus SoloStar) 100 UNIT/ML pen, Inject 10 Units under the skin at bedtime, Disp: 20 mL, Rfl: 1 Lancets ([facility] [place] [facility] Delica Plus [id number]) [facility] [place] , Disp: , Rfl: losartan (Cozaar) 50 MG tablet, Take 50 mg by mouth in the morning., Disp: , Rfl: Multiple Vitamins-Minerals (PRESERVISION AREDS PO), Take by mouth, Disp: , Rfl: omeprazole (PriLOSEC) [address] capsule, Take 20 mg by mouth in the morning. Take before meals. Do not crush or chew., Disp: , Rfl: [facility] [place] [facility] Verio test strip, USE WITH METER TO TEST SUGAR DAILY, Disp: , Rfl: propranolol (Inderal) 60 MG tablet, Take 60 mg by mouth in the morning., Disp: , Rfl: traZODone (Desyrel) 50 MG tablet, , Disp: , Rfl: Past Medical History: Past Medical History: Diagnosis Date Abnormal mammogram 03/06/2025 Anxiety 01/03/2024 Arthritis Arthritis of back 03/06/2025 Atherosclerosis of abdominal aorta 03/06/2025 added per 02/11/2025 query response. Back pain 03/06/2025 BMI 26.0-26.9,adult 03/06/2025 Bronchiectasis (HCC) 03/06/2025 noted in 12/05/2024 Pulmonology Consult Note page 1. added per OP CDI policy. Centrilobular emphysema (HCC) 03/06/2025 noted in 12/05/2024 Pulmonology Consult Note page 1. added per OP CDI policy. Constipation 03/06/2025 Cough 03/06/2025 Cramps of lower extremity 03/06/2025 Diabetes (HCC) Dizziness 03/06/2025 Female cystocele Former smoker 01/03/2024 GERD (gastroesophageal reflux disease) 01/03/2024 Heartburn 03/06/2025 History of small bowel obstruction 03/06/2025 added per 02/11/2025 query response. 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 added per OP CDI policy. [facility] current use of insulin ([facility]) 01/03/2024 Current Medication List includes Lantus and Humalog. added per OP CDI policy. [facility] current use of systemic steroids 01/03/2024 Malnutrition ([facility]) 03/06/2025 Migraine 03/06/2025 Migraines Multiple falls 01/03/2024 Nonexudative age-related macular degeneration 01/03/2024 noted in 05/03/2023 Diabetic Eye Exam page 3. added per OP CDI policy. 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 Peripheral vascular insufficiency 03/06/2025 Piriformis syndrome of left side 03/06/2025 Pitting edema 03/06/2025 Recurrent major depression in full remission 01/03/2024 added per 09/28/2023 query response. SAH (subarachnoid hemorrhage) ([facility]) 01/03/2024 SBO (small bowel obstruction) ([facility]) 03/06/2025 SDH (subdural hematoma) ([facility]) 01/03/2024 Seasonal allergies 03/06/2025 Shoulder pain, right 03/06/2025 Tumor pancreas Type 2 diabetes mellitus ([facility]) 01/03/2024 linked DM with HLD per OP CDI policy. Type 2 diabetes mellitus with hyperglycemia ([facility]) 2013 Uterine prolapse UTI symptoms 03/06/2025 Vitamin D deficiency Weakness 03/06/2025 Yeast infection 03/06/2025 Social History: Social History Tobacco Use Smoking status: Former Types: Cigarettes Smokeless tobacco: Never Substance Use Topics Alcohol use: Not Currently Vitals: BP 128/60 Pulse 61 Wt 138 lb SpO2 97% BMI 26.95 kg/m Exam: Heart: regular rate Lungs: clear to auscultation bilaterally, no wheezes/rales/rhonchi, no resp distress Extremities: no edema noted, no visible rashes Neuro: alert, oriented x3 Imaging Reviewed: None Assessment/Plan: Diagnoses and all orders for this visit: Chronic cough - gabapentin (Neurontin) 100 MG capsule; Take 1 capsule (100 mg) by mouth at bedtime ILD (interstitial lung disease) (HCC) Bronchiectasis without acute exacerbation (HCC) Cough -- at this time we did discuss that she does have some etiologies included ILD and bronchiectasis that can contribute to her cough. However she is not any changes radiographically that would support worsening of the cough. She has tried inhaled medications without much benefit. She does continue on reflux medications. She does complain of some tickle in the back of her throat. She has been using Zyrtec without any relief as well. This time we discussed a trial of gabapentin. She is agreeable to trying this medication. A prescription was called to the pharmacy for her after today's office visit. She will follow here in a few months cm reassess her symptoms with a try with gabapentin. ILD/bronchiectasis -- she does have radiographic evidence consistent with ILD and bronchiectasis onher CT scan chest. There has been no significant change when compared to her prior imaging. At thistime continue with symptoms surveillance. Given that this has not radiographically change, I do nothave a strong suspicion that this is the culprit for her cough, however it is always a possibility. Follow up in about 2 months (around 07/22/2025) for cough. Evita Fitzgerald DO documented in this encounterSaint Louis University [id number] History of Present illness Narrative* Duc Joshi MD - 04/10/2025 11:20 AM EDT Michelle Nash is a 84 y.o. female No ref. provider found presents with chief complaint of Diabetes and Follow-up HPI: History of Present Illness The patient is a 84-year-old female who presents for evaluation of diabetes. She continues her regimen of Lantus, administering 10 units in the morning and an additional 10 units at night. Additionally, she utilizes short-acting insulin, taking 3 units as needed. Interim history: 11/2024 Follow up visit 12/12/2024 She is currently on Lantus 10 twice a day and Humalog 3 units breakfast, dinner plus scale #1. A1c in our office 7.7, blood sugar 141. had low. CGM AVG 14 days 162, 30 days 168. Interim history: 07/2024. Follow up visit 08/15/2024. She is currently on Lantus 10 twice a day and Humalog 3 units breakfast, dinner plus scale #1. A1c in our office 7.3, blood sugar 116. had low. CGM AVG 144. off Jardiance by hospital. Interim history: 04/2024. Followup visit 05/09/2024. average 159 in 30 days. She is currently on Lantus 10 twice a day and Humalog 3 units breakfast, dinner plus scale #1. A1c in our office 7.3, blood sugar 141. had some laws Interim history: 01/2024. Followup visit 02/08/2024. CGM: 0 in low range, 74 in good range, 26 in high range, average 154. She is currently on Lantus 10 twice a day and Humalog 3 units breakfast, dinner plus scale #1. A1c in our office 8.2, blood sugar 145. Less variations in her blood sugars than before. Interim history: 12/2023. Followup visit 01/11/2024. She has hypoglycemia after I admit her, went to the hospital. They changed her insulin back to Lantus 10 units and sliding scale only which is still not enough. Her CGM with daughter holding the kamlesh on her phone. Still high. Blood sugar in our office 330 so I told her we need to go back to change Lantus, maybe 10 twice a day and cut back Humalog to 30 units twice a day,breakfast, supper, plus sliding scale #1. Instructions given and will continue with Jardiance back.No new labs. I already sent CGM from last visit and I will see her in six weeks for followup. HPI: 11/2023 New patient sent from Dr. Natacha Oneill for uncontrolled diabetes. A1c in our office 8.2, blood . She has had diabetes for almost 10 years and she had partial pancreatectomy. She is currently on Lantus 10 units twice a day; Humalog sliding scale, 2 units for each 50 above 150, averages 4 units twice a day; and Jardiance 10 mg. Cannot use metformin. Kidney function within normal limits. SUBJECTIVE: MEDICATIONS: Current Outpatient Medications Medication Instructions albuterol HFA 90 mcg/act inhaler atorvastatin (LIPITOR) 10 mg BD Pen Needle Xiao 2nd Gen 32G X 4 MM misc Blood Glucose Monitoring Suppl ([facility] [place] [facility] Verio Flex System) w/Device kit budesonide-formoterol (Symbicort) 160-4.5 MCG/ACT inhaler Every 12 hours cholecalciferol (Vitamin D3) 25 MCG (1000 UT) tablet Every 24 hours Continuous Glucose Pump Room Operator (FreeStyle Eduar 2 [place]) device Continuous Glucose Sensor (FreeStyle Eduar 2 Sensor) misc fluconazole (DIFLUCAN) 150 mg, Once guaiFENesin-codeine (Robitussin-AC) 100-10 MG/5ML syrup TAKE 5ML BY MOUTH EVERY 6 HOURS NEEDED FOR COUGH Gvoke HypoPen 2-Pack 1 mg, Once as needed HumaLOG KWIKPEN 100 UNIT/ML injection ibandronate (BONIVA) 150 mg, Oral, Every 30 days, Take in morning with full glass of water on an empty stomach. No food, drink, meds, or lying down for 60 minutes after. Lancets (MeMeduch Delica Plus [id number]) misc Lantus SoloStar 10 Units, Subcutaneous, Nightly losartan (COZAAR) 50 mg, Daily RT Multiple Vitamins-Minerals (PRESERVISION AREDS PO) Take by mouth omeprazole (PRILOSEC) 20 mg, Daily before breakfast [facility] Verio test strip USE WITH METER TO TEST SUGAR DAILY propranolol (INDERAL) 60 mg, Daily RT traZODone (Desyrel) 50 MG tablet ALLERGIES: Allergies Allergen Reactions Aminolevulinic Acid Other AOF Nitroglycerin Other low blood pressure Past Medical History: Diagnosis Date Abnormal mammogram 03/06/2025 Anxiety 01/03/2024 Arthritis Arthritis of back 03/06/2025 Atherosclerosis of abdominal aorta ([facility]) 03/06/2025 added per 02/11/2025 query response. Back pain 03/06/2025 BMI 26.0-26.9,adult 03/06/2025 Bronchiectasis 03/06/2025 noted in 12/05/2024 Pulmonology Consult Note page 1. added per OP CDI policy. Centrilobular emphysema ([facility]) 03/06/2025 noted in 12/05/2024 Pulmonology Consult Note page 1. added per OP CDI policy. Constipation 03/06/2025 Cough 03/06/2025 Cramps of lower extremity 03/06/2025 Diabetes ([facility]) Dizziness 03/06/2025 Female cystocele Former smoker 01/03/2024 GERD (gastroesophageal reflux disease) 01/03/2024 Heartburn 03/06/2025 History of small bowel obstruction 03/06/2025 added per 02/11/2025 query response. HLD (hyperlipidemia) ([facility]) 01/03/2024 Hospital discharge follow-up 03/06/2025 Hx of being hospitalized Fall due to brain bleed Hyperlipemia ([facility]) Hypertension ([facility]) Hypoglycemia, unspecified Hyponatremia 03/06/2025 Hypovitaminosis D Interstitial lung disease ([facility]) 01/03/2024 MCC (current) use of insulin ([facility]) MCC current use of inhaled steroid 03/06/2025 noted in 12/05/2024 Pulmonology Consult Note page 1. added per OP CDI policy. MCC current use of insulin ([facility]) 01/03/2024 Current Medication List includes Lantus and Humalog. added per OP CDI policy. 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 added per OP CDI policy. 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 Peripheral vascular insufficiency ([facility]) 03/06/2025 Piriformis syndrome of left side 03/06/2025 Pitting edema 03/06/2025 Recurrent major depression in full remission ([facility] 01/03/2024 added per 09/28/2023 query response. SAH (subarachnoid hemorrhage) ([facility]) 01/03/2024 SBO (small bowel obstruction) ([facility]) 03/06/2025 SDH (subdural hematoma) ([facility]) 01/03/2024 Seasonal allergies 03/06/2025 Shoulder pain, right 03/06/2025 Tumor pancreas Type 2 diabetes mellitus 01/03/2024 linked DM with HLD per OP CDI policy. Type 2 diabetes mellitus with hyperglycemia ([facility]) 2013 Uterine prolapse UTI symptoms 03/06/2025 Vitamin D deficiency Weakness 03/06/2025 Yeast infection 03/06/2025 Past Surgical History: Procedure Laterality Date BLADDER SURGERY ENDOMETRIAL BIOPSY EYE SURGERY Bilateral eye lift, cataracts IR KYPHOPLASTY THORACIC 06/10/2020 PANCREAS SURGERY Tumor removed TUBAL LIGATION REVIEW OF SYMPTOMS: 14 POINT OF SYSTEM REVIEWED AND NEGATIVE OBJECTIVE: Constitutional: Afebrile @ home; no weakness or night sweats SKIN: No change in skin color; no itching, rash or lesions; no hair loss; HEENT: No HAs or injury; no dizziness; No difficulty with vision; no eye pain, discharge or lesions; no hearing loss or difficulty; no nasal discharge, NECK: No pain, limitation of motion, lumps or swollen glands RESP: No cough, wheezing or difficulty breathing. No CP with breathing; CARDIO: No CP , SOB or fatigue, No edema, palpitations or dyspnea with exertion GI: No N/V/D or abd. pain; good appetite with no recent change. No heart burn, liver or gallbladderdisease; no rectal bleeding or pain : No urinary pain , frequency or odor. MUSCULOSKELETAL: No muscle pain or cramps; no extremity weakness.No joint pain, stiffness, swellingor limitation of movement NEUROLOGY: No H/O seizures, stroke or fainting. No weakness, tremors. Hematology: No bleeding problems or excessive bruising ENDOCRINE: No increase in hunger, thirst or urination; admits compliance to medical management plan Feet: numbness tingling yes , ulcers or skin break no Lab Results Component Value Date HGBA1C 7.7 04/10/2025 HGBA1C 7.7 12/12/2024 HGBA1C 8.1 (H) 01/05/2024 Lab Results Component Value Date GLU 171 04/10/2025 GLU 141 12/12/2024 GLU 125 (H) 01/05/2024 Visit Vitals BP 130/82 Pulse 59 Resp 16 Ht 5' Wt 138 lb SpO2 97% BMI 26.95 kg/m Smoking Status Former BSA 1.63 m 04/11/2024 2:12 PM 05/10/2024 10:42 AM 08/15/2024 11:01 AM 12/12/2024 11:20 AM 02/19/2025 9:44 AM 03/14/2025 9:00 AM 04/10/2025 11:22 AM Vitals BMI 24.02 kg/m2 24.22 kg/m2 25.97 kg/m2 26.37 kg/m2 26.17 kg/m2 25.78 kg/m2 26.95 kg/m2 BSA (m2) 1.54 m2 1.54 m2 1.6 m2 1.61 m2 1.6 m2 1.59 m2 1.63 m2 Systolic 142 130 140 110 108 116 130 Diastolic 84 80 76 86 60 86 82 Heart Rate 67 52 59 56 58 59 SpO2 95 % 97 % 97 % 98 % 97 % Resp 16 16 16 16 16 Height (in) 5' 5' 5' 5' 5' 5' 5' Weight (lb) 123 124 133 135 134 132 138 Visit Report Report Report Report Report Report ASSESSMENT AND PLAN: Assessment/Plan Diagnoses and all orders for this visit: Type 2 diabetes mellitus with hyperglycemia, with long-term current use of insulin ([facility]) - POCT glucose manually resulted - POCT glycosylated hemoglobin (Hb A1C) docked device - C-peptide; Future - Vitamin D 25 hydroxy Total; Future - Microalbumin / creatinine urine ratio; Future - Lipid panel; Future - Renal function panel; Future We will continue with Lantus 10 units twice a day, Humalog 3 units every meal. Insulin long-term use ([facility]) Encounter for dietary consultation Vitamin D deficiency Hyperlipemia, mixed ([facility]) Hypoglycemia Follow up in about 4 months (around 08/11/2025). documented in this encounterSaint Louis University [id number] History of Present illness Narrative* Evita Fitzgerald, DO - 03/14/2025 10:30 AM EDT Images from the original note were not included. Michelle Nash presents today for evaluation in regards to cough. She has been evaluated by Pulmonaryin the past. She currently is using an inhaled medications for treatment of COPD. She does also have a known history of interstitial lung disease. She is accompanied by her at today's office visit. She states she was diagnosed with interstitial lung disease and COPD several years ago. She does continue to complain of a cough. Her states this occurs mostly in the evening. He does note that this happens a lot when she is talking on the phone. She states that this is rarely productive. However if it is it is more clear in nature. She has had a few hospitalizations over last year,but nothing related to her cough or breathing. She denies any real complaints of shortness breath with exertion. She denies any chest pain or chest pressure. She denies any fevers, chills, or sweats.Currently she is using Symbicort and albuterol. She does not use albuterol much at all. She uses Symbicort mostly at night. She does note some increase in her cough after eating. She currently is using omeprazole for reflux. She previously had been on famotidine, but this was changed to omeprazole.She does also complain of some sinus congestion and drainage as well as rhinorrhea. She did have PFTs performed prior to today's office visit. She has also had some imaging done. She denies any othercomplaints at this time. She had previously follow with Dr. Jean-Baptiste. Allergies Allergen Reactions Aminolevulinic Acid Other AOF Nitroglycerin Other low blood pressure Current Outpatient Medications Medication Sig Dispense Refill albuterol HFA 90 mcg/act inhaler atorvastatin (Lipitor) 10 MG tablet Take 10 mg by mouth BD Pen Needle Xiao 2nd Gen 32G X 4 MM misc Blood Glucose Monitoring Suppl ([employer] Verio Flex System) w/Device kit budesonide-formoterol (Symbicort) 160-4.5 MCG/ACT inhaler every 12 (twelve) hours cholecalciferol (Vitamin D3) 25 MCG (1000 UT) tablet 1 (one) time each day at the same time Continuous Glucose Pump Room Operator (FreeStyle Eduar 2 [place]) device Continuous Glucose Sensor (FreeStyle Eduar 2 Sensor) misc fluconazole (Diflucan) 150 MG tablet Take 150 mg by mouth 1 (one) time Gvoke HypoPen 2-Pack 1 MG/0.2ML injection Inject 1 mg under the skin 1 (one) time if needed HumaLOG KWIKPEN 100 UNIT/ML injection ibandronate (Boniva) 150 MG tablet Take 1 tablet (150 mg) by mouth every 30 (thirty) days Take in morning with full glass of water on an empty stomach. No food, drink, meds, or lying down for 60 minutes after. 1 tablet 11 insulin glargine (Lantus SoloStar) 100 UNIT/ML pen Inject 10 Units under the skin at bedtime 20 mL 1 Lancets (Apax SolutionsTouch Delica Plus [id number]) misc losartan (Cozaar) 50 MG tablet Take 50 mg by mouth in the morning. Multiple Vitamins-Minerals (PRESERVISION AREDS PO) Take by mouth omeprazole (PriLOSEC) [address] capsule Take 20 mg by mouth in the morning. Take before meals. Do not crush or chew. propranolol (Inderal) 60 MG tablet Take 60 mg by mouth in the morning. traZODone (Desyrel) 50 MG tablet guaiFENesin-codeine (Robitussin-AC) 100-10 MG/5ML syrup TAKE 5ML BY MOUTH EVERY 6 HOURS NEEDED FOR COUGH OneTouch Verio test strip USE WITH METER TO TEST SUGAR DAILY No current facility-administered medications for this visit. Past Medical History: Diagnosis Date Abnormal mammogram 03/06/2025 Anxiety 01/03/2024 Arthritis Arthritis of back 03/06/2025 Atherosclerosis of abdominal aorta (CMS/HCC) 03/06/2025 added per 02/11/2025 query response. Back pain 03/06/2025 BMI 26.0-26.9,adult 03/06/2025 Bronchiectasis 03/06/2025 noted in 12/05/2024 Pulmonology Consult Note page 1. added per OP CDI policy. Centrilobular emphysema ([facility]) 03/06/2025 noted in 12/05/2024 Pulmonology Consult Note page 1. added per OP CDI policy. Constipation 03/06/2025 Cough 03/06/2025 Cramps of lower extremity 03/06/2025 Diabetes ([facility]) Dizziness 03/06/2025 Female cystocele Former smoker 01/03/2024 GERD (gastroesophageal reflux disease) 01/03/2024 Heartburn 03/06/2025 History of small bowel obstruction 03/06/2025 added per 02/11/2025 query response. HLD (hyperlipidemia) ([facility]) 01/03/2024 Hospital discharge follow-up 03/06/2025 Hx of being hospitalized Fall due to brain bleed Hyperlipemia ([facility]) Hypertension ([facility]) Hypoglycemia, unspecified Hyponatremia 03/06/2025 Hypovitaminosis D Interstitial lung disease ([facility]) 01/03/2024 MCC (current) use of insulin ([facility]) MCC current use of inhaled steroid 03/06/2025 noted in 12/05/2024 Pulmonology Consult Note page 1. added per OP CDI policy. MCC current use of insulin ([facility]) 01/03/2024 Current Medication List includes Lantus and Humalog. added per OP CDI policy. 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 added per OP CDI policy. 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 Peripheral vascular insufficiency ([facility]) 03/06/2025 Piriformis syndrome of left side 03/06/2025 Pitting edema 03/06/2025 Recurrent major depression in full remission ([facility]) 01/03/2024 added per 09/28/2023 query response. SAH (subarachnoid hemorrhage) ([facility] 01/03/2024 SBO (small bowel obstruction) ([facility]) 03/06/2025 SDH (subdural hematoma) ([facility]) 01/03/2024 Seasonal allergies 03/06/2025 Shoulder pain, right 03/06/2025 Tumor pancreas Type 2 diabetes mellitus 01/03/2024 linked DM with HLD per OP CDI policy. Type 2 diabetes mellitus with hyperglycemia ([facility] 2013 Uterine prolapse UTI symptoms 03/06/2025 Vitamin D deficiency Weakness 03/06/2025 Yeast infection 03/06/2025 Past Surgical History: Procedure Laterality Date BLADDER SURGERY ENDOMETRIAL BIOPSY EYE SURGERY Bilateral eye lift, cataracts IR KYPHOPLASTY THORACIC 06/10/2020 PANCREAS SURGERY Tumor removed TUBAL LIGATION Family History Problem Relation Name Age of Onset Diabetes Mother Cancer Mother Cancer Father Diabetes Father Social History Tobacco Use Smoking status: Former Types: Cigarettes Smokeless tobacco: Never Substance Use Topics Alcohol use: Not Currently BP 116/86 (BP Location: Left arm, Patient Position: Sitting) Pulse 58 Ht 5' Wt 132 lb SpO2 98% BMI 25.78 kg/m Exam: Heart: regular rate Lungs: clear to auscultation bilaterally, no wheezes/rales/rhonchi, no resp distress Extremities: no edema noted, no visible rashes Neuro: alert, oriented x3 Imaging Reviewed: Images and report of CT chest from November 2024 reviewed--grossly stable prominent chronic interstitial changes, stable bronchiectasis and emphysematous changes, no appreciable acute infiltrate or suspicious nodules PFT's from October 2024 reviewed--FVC 1.73 L (93 %), FEV1 1.50 L (111 %), ratio 87 %, no hyperinflation present, air trapping present, decreased DLCO Assessment/Plan: Chronic cough -- we discussed that there are some different etiologies present that are likely contributing to her chronic cough. She does have a component of ILD that can contribute to the cough. However she states this has worsened recently and her ILD changes have remain the same. She does have some complaints of coughing more so in the evening after eating. I do question whether she may have a component of reflux that is playing a role in to her current symptoms. We discussed increasing heromeprazole to 40 mg daily. She does also have some complaints of rhinorrhea and tickle in the back of her throat. Given this we discussed using an [id number] antihistamine to help with these symptoms. She will follow here once she has had a trial of these maneuvers. ILD/bronchiectasis -- she does have evidence of ILD and bronchiectasis on her CT scan of her chest.Her most recent scan did demonstrate stability when compared to her last scan. At this time we willcontinue with symptoms surveillance. We will readdress her cough at her next office visit. Follow up in about 2 months (around 05/14/2025) for ILD, cough. Evita Fitzgerald DO documented in this encounterSaint Louis University [id number] History of Present illness Narrative* Duc Joshi MD - 12/12/2024 11:00 AM EST Michelle Nash is a 84 y.o. female Duc Joshi MD presents with chief complaint of Diabetes Mellitus and Follow-up HPI: Interim history: 11/2024 Follow up visit 12/12/2024 She is currently on Lantus 10 twice a day and Humalog 3 units breakfast, dinner plus scale #1. A1c in our office 7.7, blood sugar 141. had low. CGM AVG 14 days 162, 30 days 168. Interim history: 07/2024. Follow up visit 08/15/2024. She is currently on Lantus 10 twice a day and Humalog 3 units breakfast, dinner plus scale #1. A1c in our office 7.3, blood sugar 116. had low. CGM -14 AVG 144. off Jardiance by hospital. Interim history: 04/2024. Followup visit 05/09/2024. average 159 in 30 days. She is currently on Lantus 10 twice a day and Humalog 3 units breakfast, dinner plus scale #1. A1c in our office 7.3, blood sugar 141. had some laws Interim history: 01/2024. Followup visit 02/08/2024. CGM: 0 in low range, 74 in good range, 26 in high range, average 154. She is currently on Lantus 10 twice a day and Humalog 3 units breakfast, dinner plus scale #1. A1c in our office 8.2, blood sugar 145. Less variations in her blood sugars than before. Interim history: 12/2023. Followup visit 01/11/2024. She has hypoglycemia after I admit her, went to the hospital. They changed her insulin back to Lantus 10 units and sliding scale only which is still not enough. Her CGM with daughter holding the kamlesh on her phone. Still high. Blood sugar in our office 330 so I told her we need to go back to change Lantus, maybe 10 twice a day and cut back Humalog to 30 units twice a day,breakfast, supper, plus sliding scale #1. Instructions given and will continue with Jardiance back.No new labs. I already sent CGM from last visit and I will see her in six weeks for followup. HPI: 11/2023 New patient sent from Dr. Natacha Oneill for uncontrolled diabetes. A1c in our office 8.2, blood . She has had diabetes for almost 10 years and she had partial pancreatectomy. She is currently on Lantus 10 units twice a day; Humalog sliding scale, 2 units for each 50 above 150, averages 4 units twice a day; and Jardiance 10 mg. Cannot use metformin. Kidney function within normal limits. SUBJECTIVE: MEDICATIONS: Current Outpatient Medications Medication Instructions albuterol HFA 90 mcg/act inhaler INHALE 2 PUFFS BY MOUTH EVERY 6 HOURS atorvastatin (LIPITOR) 10 mg BD Pen Needle Xiao 2nd Gen 32G X 4 MM misc USE ONE PEN NEEDLE WITH EACH ADMINISTRATION OF LANTUS TWICE A DAY AND HUMALOG 3 TIMES A DAY Blood Glucose Monitoring Suppl (Me[employer] Verio Flex System) w/Device kit USE DIRECTED budesonide-formoterol (Symbicort) 160-4.5 MCG/ACT inhaler Every 12 hours cholecalciferol (Vitamin D3) 25 MCG (1000 UT) tablet Every 24 hours clotrimazole-betamethasone (Lotrisone) cream APPLY TO AFFECTED AREA TWICE A DAY FOR 14 DAYS Continuous Glucose Pump Room Operator (FreeStyle Eduar 2 [place]) device USE WITH FREESTYLE SENSORS DIRECTED Continuous Glucose Sensor (FreeStyle Eduar 2 Sensor) misc CHANGE EVERY 14 DAYS DIRECTED Flovent HFA 44 MCG/ACT inhaler 2 puffs, 2 times daily guaiFENesin-codeine (Robitussin-AC) 100-10 MG/5ML syrup TAKE 5ML BY MOUTH EVERY 6 HOURS NEEDED FOR COUGH Gvoke HypoPen 2-Pack 1 mg, Once as needed HumaLOG KWIKPEN 100 UNIT/ML injection See Instructions, TID AC MEALS 150-200 2U, 201-250 4U, 251-300 6U, 301-350 8U,351-400 10U, > 401 12U AND CALL PCP, # 15 mL, Refills(s) 0, Pharmacy: [facility]/pharmacy #[id number], 152, cm, 09/15/23 19:17:00 EDT, Height/Length Dosing, 44.9, kg, 09/15/23 19:17:00 EDT, Weight Dosing ibandronate (BONIVA) 150 mg, Oral, Every 30 days, Take in morning with full glass of water on an empty stomach. No food, drink, meds, or lying down for 60 minutes after. Jardiance 10 MG See Instructions, TAKE 1 TABLET BY MOUTH EVERY DAY IN THE MORNING, # 30 tab(s), Refills(s) 0, Pharmacy: [facility] STORE [id number], 152, cm, 12/14/23 9:14:00 EST, Height/Length Dosing, 52, kg, 12/14/23 9:14:00 EST, Weight Dosing Lancets (Apax SolutionsTouch Delica Plus [id number]) misc USE TO TEST BLOOD SUGAR ONCE DAILY Lantus SoloStar 100 UNIT/ML pen INJECT 10 UNITS SUBCUATANEOUSLY TWICE A DAY levETIRAcetam (KEPPRA) 750 mg, 2 times daily losartan (COZAAR) 50 mg, Daily RT Multiple Vitamins-Minerals (PRESERVISION AREDS PO) Take by mouth omeprazole (PRILOSEC) 20 mg, Daily before breakfast OneTouch Verio test strip USE WITH METER TO TEST SUGAR DAILY propranolol (INDERAL) 60 mg, Daily RT tiZANidine (Zanaflex) 4 MG tablet TAKE 1 TO 1 & 1/2 TABLETS BY MOUTH AT BEDTIME FOR 90 DAYS traZODone (Desyrel) 50 MG tablet TAKE 1/2 TABLET BY MOUTH ONCE DAILY AT BEDTIME ALLERGIES: No Known Allergies Past Medical History: Diagnosis Date Arthritis Diabetes (CMS/HCC) Female cystocele Hx of being hospitalized Fall due to brain bleed Hyperlipemia ([facility]) Hypertension ([facility]) Hypoglycemia, unspecified Hypovitaminosis D 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 ([facility]) Migraines ([facility]) OAB (overactive bladder) Osteopenia Pancreatic cancer ([facility]) Tumor pancreas Type 2 diabetes mellitus with hyperglycemia ([facility]) 2013 Uterine prolapse Vitamin D deficiency Past Surgical History: Procedure Laterality Date BLADDER SURGERY ENDOMETRIAL BIOPSY EYE SURGERY Bilateral eye lift, cataracts IR KYPHOPLASTY THORACIC 06/10/2020 PANCREAS SURGERY Tumor removed TUBAL LIGATION REVIEW OF SYMPTOMS: 14 POINT OF SYSTEM REVIEWED AND NEGATIVE OBJECTIVE: Constitutional: Afebrile @ home; no weakness or night sweats SKIN: No change in skin color; no itching, rash or lesions; no hair loss; HEENT: No HAs or injury; no dizziness; No difficulty with vision; no eye pain, discharge or lesions; no hearing loss or difficulty; no nasal discharge, NECK: No pain, limitation of motion, lumps or swollen glands RESP: No cough, wheezing or difficulty breathing. No CP with breathing; CARDIO: No CP , SOB or fatigue, No edema, palpitations or dyspnea with exertion GI: No N/V/D or abd. pain; good appetite with no recent change. No heart burn, liver or gallbladderdisease; no rectal bleeding or pain : No urinary pain , frequency or odor. MUSCULOSKELETAL: No muscle pain or cramps; no extremity weakness.No joint pain, stiffness, swellingor limitation of movement NEUROLOGY: No H/O seizures, stroke or fainting. No weakness, tremors. Hematology: No bleeding problems or excessive bruising ENDOCRINE: No increase in hunger, thirst or urination; admits compliance to medical management plan Feet: numbness tingling yes , ulcers or skin break no Lab Results Component Value Date HGBA1C 7.7 12/12/2024 HGBA1C 8.1 (H) 01/05/2024 Lab Results Component Value Date GLU 141 12/12/2024 GLU 125 (H) 01/05/2024 GLU 170 (H) 01/04/2024 Visit Vitals BP 110/86 Pulse 56 Resp 16 Ht 5' Wt 135 lb BMI 26.37 kg/m Smoking Status Never BSA 1.61 m ASSESSMENT AND PLAN: Assessment/Plan Diagnoses and all orders for this visit: Type 2 diabetes mellitus with hyperglycemia, with long-term current use of insulin ([facility]) - POCT glucose manually resulted - POCT glycosylated hemoglobin (Hb A1C) docked device Continue Lantus 10 units twice a day, Humalog 3 units every meal, she has Gvoke as a backup Insulin long-term use ([facility]) Encounter for dietary consultation Diet and exercise reviewed with the patient Vitamin D deficiency Hyperlipemia, mixed ([facility]) Hypoglycemia Follow up in about 4 months (around 04/11/2025). documented in this encounterSaint Louis University [id number] NoteDischarge Summary Admission and Discharge Information Admit Date/Time:06/15/2024 17:50 Admitting Physician - Navjot VALENTINE, Mariann Reece Admitting Diagnoses: Discharge Diagnoses 1. SBO (small bowel obstruction), 06/15/2024 Abdominal pain, 06/15/2024 Nausea, 06/15/2024 Vomiting, 06/15/2024 Procedure History Bladder (07/30/2019), Cataract (11/29/2016), Lower back (surface region) (11/29/1989), Colpocleisis, [place]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 Hospital Course Significant Findings contrast through to the colon Procedures and Treatment Provided Michelle Nash is an 83 year-old female with a PMHx of HTN, HLD, Type II DM, depression, and anxiety. PSHx of distal pancreatectomy and splenectomy. Patient presented to [facility] ED on 06/15 with 3-4 days of abdominal pain, nausea, and emesis. EGS workup found a small bowel obstruction likely secondary to adhesions. Patient was subsequently admitted to the [facility] under EGS service for trial of non- op management for SBO. 06/15/2024: Presented to ED with abd pain and nausea and emesis. CT consistent with SBO. Admitted toRNF under EGS. NGT placed for decompression, pt made NPO. 06/16/2024: Abd pain improved. No nausea or emesis. Not passing flatus. High NGT output. 06/17/2024: had been passing flatus, small bowel follow through performed and contrast reached colonwith one hour. Had several large bowel movements. Advanced to clears and NG removed. This morning, she has been having no abdominal pain and has tolerated breakfast and lunch. She has been passing flatus. She is eager to be discharged home. Discussed with patient and family and will discharge home this afternoon. Physical Exam Gen: awake, alert, interactive CV: regular rate Pulm: respirations even and unlabored Abdomen: soft, nondistended, nontender Extremities: no cyanosis or edema Neuro: A&Ox [address] Abdomen/Pelvis w/ Contrast XR Small Bowel w/ Serial Films Discharge Plan Patient Discharge Condition improved Discharge Disposition Discharge To, Anticipated II - Home with responsible caregiver Discharged to - Home with home health Transported by, Anticipated - Family Discharge Diet Discharge Diet(s): Regular (06/18/24 13:03:00) Discharge Medication List Prescriptions atorvastatin 10 mg Tab, See Instructions BD UF Nanno pen needle 4mm x32G, See Instructions, 3 refills BLOOD GLUCOSE METER TEST STRIPS, See Instructions, 11 refills Freestyle Eduar 2 Flash Glucose Monitoring 14 Day System ([place]), See Instructions Freestyle Eduar 2 Flash Glucose Monitoring 14 Day System (Sensor), See Instructions Freestyle Eduar 2 sensor, See Instructions, 1 refills Glucose Kit, See Instructions HumaLOG KwikPen 100 units/mL injectable solution, See Instructions, Still taking, not as prescribed: Patient states she is taking 3 units before breakfast and dinner and does sliding scale at lunch LANCETS OF CHOICE OR SPECIFIED BY INSURANCE., See Instructions, 11 refills Lantus Solostar Pen 100 units/mL subcutaneous solution, See Instructions losartan 50 mg Tab, See Instructions, 3 refills omeprazole 20 mg Cap-DR, 20 mg= 1 cap(s), Oral, Daily Pen [place], See Instructions, 3 refills propranolol 60 mg oral tablet, 90 mg; one and one-half tablets, Oral, Bedtime traZODONE 50 mg Tab, See Instructions Home biotin, 1 tablet, Oral, Daily ibandronate, 150 mg, Oral, qMonth omeprazole 20 mg Cap-DR, 20 mg= 1 cap(s), Oral, Daily, Self Directed PreserVision AREDS, 2 tablets daily, Oral, Daily propranolol, 60 mg, Oral, Daily tizanidine, 4 mg, Oral, Bedtime Vitamin D3, 25 mcg, Oral, Daily Follow-up With When Contact Information trauma clinic Only if needed [address] (2[address] floor) [place], [place] [address]- [phone] Additional Instructions: Only if questions or concerns Natacha Oneill Additional Instructions: to monitor hypertension Patient Education Bowel Obstruction [1] Progress/SOAP Note; Mariann Morfin MD 06/18/2024 18:16 EDMemorial HospitalComment on above:Result Comment: Electronically Signed By: Navjot VALENTINE, Mariann Reece\.br\Date and Time Signed: 07/26/24 14:28 [id number] NoteProgress Note-Physician GENERAL INFORMATION EMERGENCY GENERAL SURGERY - STAFF PROGRESS NOTE Patient Name: MICHELLE NASH Admission Date: 06/15/2024 14:55:19 Patient seen and examined on 06/17/2024 17:15:58 INTERVAL HISTORY/EVENTS Background: Michelle Nash is an 83 year-old female with a PMHx of HTN, HLD, Type II DM, depression, and anxiety. PSHx of distal pancreatectomy and splenectomy. Patient presented to [facility] ED on 06/15 with 3-4 days of abdominal pain, nausea, and emesis. EGS workup found a small bowel obstruction likely secondary to adhesions. Patient was subsequently admitted to the [facility] under EGS service for trial of non- op management for SBO. Hospital Course: 06/15/2024: Presented to ED with abd pain and nausea and emesis. CT consistent with SBO. Admitted toRNF under EGS. NGT placed for decompression, pt made NPO. 06/16/2024: Abd pain improved. No nausea or emesis. Not passing flatus. High NGT output. 24 Hour Events: Patient states she walked several laps in the hallways yesterday. Today she feels better had has been passing flatus this AM. She states her abdomen no longer hurts but remains sore with any palpation. She denies any further nausea or emesis. NGT output in last 24 hours was 875 cc. This afternoon, patient had two large loose BMs. Vitals reviewed: Pt's BP has been elevated with SBPs in 170's - 190's in last 24hrs. Hear rate appropriate, afebrile, and breathing easily on RA with O2 sats >92%. Labs reviewed: All labs within acceptable ranges. No leukocytosis, no electrolyte abnormalities. BUN/Cr normal. This visit (24 hour periods starting at 07:00 EDT) 06/17/24 * 06/16/24 06/15/24 Total Summary Intake mL 19 1,337.31 516 Output mL 800 1,675 675 Fluid Balance -781 -337.69 -159 Intake (9) Dextrose 5% in Lactated Ringers intravenous solution 1,000 mL mL -- 1,104.31 -- Generic Diluent, acetaminophen mL -- 200 -- Sodium Chloride 0.9% mL -- -- 500 famotidine mL 2 2 -- ketorolac mL -- 1 1 labetalol mL 2 -- -- metoprolol mL 15 30 10 morphine mL -- -- 1 ondansetron mL -- -- 4 Total 19 1,337.31 516 Output (2) Gastric Tube Output mL 200 875 675 Urine Voided mL 600 800 -- Total 800 1,675 675 Counts (1) Stool Count 2 -- -- * This column has not completed the indicated time period. PHYSICAL EXAM Vital Signs (last 24 hrs) Last Charted Temp Oral 36.7 DegC (JUN 17 11:38) Heart Rate Apical 70 bpm (JUN 17 16:35) SBP H 178 mmHg (JUN 17 16:35) DBP H 95 mmHg (SAMANTHA 20 16:35) GENERAL: Sitting up in bed. Awake, alert, and no no acute distress. Family at bedside. HEENT: Normocephalic. Grossly atraumatic. NGT in place in right naris. CARDIOVASCULAR: RRR PULMONARY: Breathing easily on RA. No wheezes. ABDOMINAL: Soft, non-tender, no distention. EXTREMITIES: Extremity ROM intact throughout. No LE edema. NEUROLOGICAL: Moves all extremities to command appropriately. GCS 15. LABORATORY RESULTS (LAST 24 HOURS) WBC: 9.2 E9/L (06/17/24 05:13:00) RBC: 4.1 E12/L Low (06/17/24 05:13:00) HGB: 13.4 gm/dL (06/17/24 05:13:00) Hct: 39.3 % (06/17/24 05:13:00) MCV: 96 fL (06/17/24 05:13:00) MCH: 32.7 pg (06/17/24 05:13:00) MCHC: 34 gm/dL (06/17/24 05:13:00) RDW: 13.8 % (06/17/24 05:13:00) Platelet: 261 E9/L (06/17/24 05:13:00) MPV: 9.5 fL (06/17/24 05:13:00) Neutro Auto: 70.6 % (06/17/24 05:13:00) Lymph Auto: 13.7 % Low (06/17/24 05:13:00) [place] Auto: 13.4 % (06/17/24 05:13:00) Eos Auto: 2.1 % (06/17/24 05:13:00) Basophil Auto: 0.2 % (06/17/24 05:13:00) Neutro Absolute: 6.5 E9/L (06/17/24 05:13:00) Lymph Absolute: 1.3 E9/L (06/17/24 05:13:00) [place] Absolute: 1.2 E9/L High (06/17/24 05:13:00) Eos Absolute: 0.2 E9/L (06/17/24 05:13:00) Basophil Absolute: 0 E9/L (06/17/24 05:13:00) Glucose Lvl: 128 mg/dL (06/17/24 05:13:00) BUN: 20 mg/dL (06/17/24 05:13:00) Creatinine: 0.6 mg/dL (06/17/24 05:13:00) eGFR: 88 mL/min/1.73 m2 (06/17/24 05:13:00) BUN/Creat Ratio: 33 High (06/17/24 05:13:00) Sodium Lvl: 139 mmol/L (06/17/24 05:13:00) Potassium Lvl: 3.6 mmol/L (06/17/24 05:13:00) Chloride: 102 mmol/L (06/17/24 05:13:00) CO2: 29 mmol/L (06/17/24 05:13:00) AGAP: 12 mEq/L (06/17/24 05:13:00) Calcium Lvl: 8.6 mg/dL Low (06/17/24 05:13:00) Magnesium: 1.8 mg/dL (06/17/24 05:13:00) Glucose Cap: 139 mg/dL High (06/17/24 12:18:00) POC Device SN: [id number] (06/17/24 12:18:00) POC User ID: [id number] (06/17/24 12:18:00) POC Username: POC Username (06/17/24 12:18:00) IMAGING RESULTS (PERSONALLY REVIEWED) XR Small Bowel w/ Serial Films: At 6 hour justin, contrast has r (more content not included)...[facility] HospitalComment on above:Result Comment: Electronically Signed By: Kamille CRUZ, Brad Ruiz.br\Date and Time Signed: 06/17/24 17:32 EDT\.br\Electronically Co-Signed By: Navjot VALENTINE, Mariann Reece\.br\Date and Time Co-Signed: 07/17/24 07:30 [id number] Hospital Discharge instructions Patient Education 06/21/2024 09:02:51 Nausea and Vomiting, Adult, Dboo-re-Lrgm Nausea and Vomiting, Adult Nausea is feeling that you have an upset stomach and that you are about to vomit. Vomiting is when food in your stomach forcefully comes out of your mouth. Vomiting can make you feel weak. If you vomit, or if you are not able to drink enough fluids, you may not have enough water in your body (get dehydrated). If you do not have enough water in your body, you may: Feel tired. Feel thirsty. Have a dry mouth. Have cracked lips. Pee (urinate) less often. Older adults and people with other diseases or a weak body defense system (immune system) are at higher risk for not having enough water in the body. If you feel like you may vomit or you vomit, it is important to follow instructions from your doctor about how to take care of yourself. Follow these instructions at home: Watch your symptoms for any changes. Tell your doctor about them. Eating and drinking Take an ORS (oral rehydration solution). This is a drink that is sold at pharmacies and stores. Drink clear fluids in small amounts as you are able, such as: ?Water. ?Ice chips. ?Fruit juice that has water added (diluted fruit juice). ?Low-calorie sports drinks. Eat bland, wsup-ks-auludr foods in small amounts as you are able, such as: ?Bananas. ?Applesauce. ?Rice. ?Low-fat (lean) meats. ?[place]. ?Crackers. Avoid drinking fluids that have a lot of sugar or caffeine in them. This includes energy drinks, sports drinks, and soda. Avoid alcohol. Avoid spicy or fatty foods. General instructions Take qxug-slq-qovffha and prescription medicines only as told by your doctor. Drink enough fluid to keep your pee (urine) pale yellow. Wash your hands often with soap and water for at least 20 seconds. If you cannot use soap and water, use hand computer publisher. Make sure that everyone in your home washes their hands well and often. Rest at home until you feel better. Watch your condition for any changes. Take slow and deep breaths when you feel like you may vomit. Keep all follow-up visits. Contact a doctor if: Your symptoms get worse. You have new symptoms. You have a fever. You cannot drink fluids without vomiting. You feel like you may vomit for more than 2 days. You feel light-headed or dizzy. You have a headache. You have muscle cramps. You have a rash. You have pain while peeing. Get help right away if: You have pain in your chest, neck, arm, or jaw. You feel very weak or you faint. You vomit again and again. You have vomit that is bright red or looks like black coffee grounds. You have bloody or black poop (stools) or poop that looks like tar. You have a very bad headache, a stiff neck, or both. You have very bad pain, cramping, or bloating in your belly (abdomen). You have trouble breathing. You are breathing very quickly. Your heart is beating very quickly. Your skin feels cold and clammy. You feel confused. You have signs of losing too much water in your body, such as: ?Dark pee, very little pee, or no pee. ?Cracked lips. ?Dry mouth. ?Sunken eyes. ?Sleepiness. ?Weakness. These symptoms may be an emergency. Get help right away. Call 911. Do not wait to see if the symptoms will go away. Do not drive yourself to the hospital. Summary Nausea is feeling that you have an upset stomach and that you are about to vomit. Vomiting is when food in your stomach comes out of your mouth. Follow instructions from your doctor about eating and drinking. Take kcal-uws-pleidsn and prescription medicines only as told by your doctor. Contact your doctor if your symptoms get worse or you have new symptoms. Keep all follow-up visits. This information is not intended to replace advice given to you by your health care provider. Make sure you discuss any questions you have with your health care provider. Document Revised: 05/22/2022 Document Reviewed: 05/22/2022 [employer] Patient Education 2022 [employer]. Follow Up Care 06/18/2024 16:57:22 With:Mai VALENTINE, Natacha Concepcion [facility], [facility] Address: When: Unknown Comments:Appointment has already been scheduled [facility] 07-23-2024 NoteInterdisciplinary Note - PT PT Evaluation done this date. Pt. with on AM-PAC this date. Slow with functional activities due to weakness and abdominal pain but overall doing well. Recommend home with home health PT and useof FWW.[facility] 06-18-2024 NoteHistory and Physical Basic Information Michelle Nash is an 83 year-old female with a PMHx of HTN, HLD, Type II DM, depression, and anxiety. PSHx of distal pancreatectomy and splenectomy. Patient presented to [facility] ED on 06/15 with 3-4 days of abdominal pain, nausea, and emesis. EGS workup found a small bowel obstruction likely secondary to adhesions. Patient was subsequently admitted to the [facility] under EGS service for trial of non- op management for SBO. Hospital Course: 06/15/2024: Presented to ED with abd pain and nausea and emesis. CT consistent with SBO. Admitted toRNF under EGS. NGT placed for decompression, pt made NPO. 06/16/2024: Abd pain improved. No nausea or emesis. Not passing flatus. High NGT output. 06/17/2024: had been passing flatus, small bowel follow through performed and contrast reached colonwith one hour. Had several large bowel movements. Advanced to clears and NG removed. Subjective Patient did well with clear liquids all afternoon and overnight. She tolerated breakfast and lunch without abdominal pain or nausea and was passing flatus. She was determined appropriate for discharge home. However, family states on the way home she had a very large emesis, and then had several smaller emesis while at home. They did note that she was starting to belch right before she physically left the hospital. She seemed lethargic and uncomfortable at home, so she was brought back to the ED. Right now, she denies any significant abdominal pain, states it is just sore . Hypertensive in EDup to 230 systolic, given hydralazine and BP down to 150 systolic. no chest pain or shortness of breath. Objective Vitals & Measurements T: 36.4 ?C(Oral) HR: 68(Peripheral) RR: 17 BP: 148/76 SpO2: 96% HT: 152 cm WT: 60 kg Intake & Output This visit (24 hour periods starting at 07:00 EDT) 06/18/24 * 06/17/24 06/16/24 Total Summary Intake mL 2.5 -- -- Output mL -- -- -- Fluid Balance 2.5 -- -- Intake (2) hydrALAZINE mL 0.5 -- -- ondansetron mL 2 -- -- Total 2.5 -- -- Output (0) Counts (0) * This column has not completed the indicated time period. Physical Exam Gen: awake, appears tired, but alert CV: regular rate Pulm: respirations even and unlabored Abdomen: soft, nondistended, nontender Extremities: no cyanosis or edema Neuro: A&O x 3 Lab Results WBC: 8.6 E9/L (06/18/24 17:18:00) RBC: 4.5 E12/L (06/18/24 17:18:00) HGB: 15.3 gm/dL (06/18/24 17:18:00) Hct: 42.7 % (06/18/24 17:18:00) MCV: 94.6 fL (06/18/24 17:18:00) MCH: 33.8 pg (06/18/24 17:18:00) MCHC: 35.8 gm/dL (06/18/24 17:18:00) RDW: 13.5 % (06/18/24 17:18:00) Platelet: 274 E9/L (06/18/24 17:18:00) MPV: 9.5 fL (06/18/24 17:18:00) Neutro Auto: 70.7 % (06/18/24 17:18:00) Lymph Auto: 16.8 % (06/18/24 17:18:00) [place] Auto: 7.8 % (06/18/24 17:18:00) Eos Auto: 2.7 % (06/18/24 17:18:00) Basophil Auto: 2 % (06/18/24 17:18:00) Neutro Absolute: 6.1 E9/L (06/18/24 17:18:00) Lymph Absolute: 1.5 E9/L (06/18/24 17:18:00) [place] Absolute: 0.7 E9/L (06/18/24 17:18:00) Eos Absolute: 0.2 E9/L (06/18/24 17:18:00) Basophil Absolute: 0.2 E9/L (06/18/24 17:18:00) Glucose Lvl: 102 mg/dL (06/18/24 17:18:00) BUN: 17 mg/dL (06/18/24 17:18:00) Creatinine: 0.8 mg/dL (06/18/24 17:18:00) eGFR: 72 mL/min/1.73 m2 (06/18/24 17:18:00) BUN/Creat Ratio: 21 High (06/18/24 17:18:00) Sodium Lvl: 136 mmol/L (06/18/24 17:18:00) Potassium Lvl: 3.9 mmol/L (06/18/24 17:18:00) Chloride: 97 mmol/L Low (06/18/24 17:18:00) CO2: 26 mmol/L (06/18/24 17:18:00) AGAP: 17 mEq/L High (06/18/24 17:18:00) Calcium Lvl: 9.7 mg/dL (06/18/24 17:18:00) Alk Phos: 83 Int._Unit/L (06/18/24 17:18:00) ALT: 13 Int._Unit/L (06/18/24 17:18:00) AST: 22 Int._Unit/L (06/18/24 17:18:00) Total Protein: 8.6 gm/dL High (06/18/24 17:18:00) Albumin Lvl: 4.1 gm/dL (06/18/24 17:18:00) Globulin: 4.5 gm/dL High (06/18/24 17:18:00) A/G Ratio: 0.9 Low (06/18/24 17:18:00) Bili Total: 0.5 mg/dL (06/18/24 17:18:00) Bili Direct: 0.1 mg/dL (06/18/24 17:18:00) Bili Indirect: 0.4 mg/dL (06/18/24 17:18:00) Lipase Lvl: 36 unit/L (06/18/24 17:18:00) UA Spec Desc: Clean Catch (06/18/24 18:03:00) Diagnostic Results CT abdomen/pelvis: (my review) small bowel dilation has significantly improved, still some dilation in the RUQ. Contrast from previous follow through entirely in the colon. No free air or significant free fluid Assessment/Plan Ordered: hydrALAZINE, 10 mg = 0.5 mL, Injection, IV Push, Once, Stop date 06/18/24 17:28:00 EDT, STAT, Startdate 06/18/24 17:28:00 EDT, 06/18/24 17:28:00 EDT Capillary Glucose POC Capillary Glucose POC XR Small Bowel w/ Serial Films 83 y/o female with recent small bowel obstruction, discharged home today, but returned within two hours because she started having vomiting on the drive home. Notably, CT scan improved, no significant signs of obstruction. Does have a new anion gap since labs earlier this morni (more content not included)...[facility] HospitalComment on above:Result Comment: Electronically Signed By: Navjot VALENTINE, Mariann Reece\.br\Date and Time Signed: 06/18/24 20:41 [id number] Hospital Discharge instructions Patient Education 06/18/2024 13:06:19 Bowel Obstruction Bowel Obstruction A bowel obstruction is a blockage in the small or large bowel. The bowel is also called the intestine. It is a long tube that connects the stomach to the anus. When a person eats and drinks, food andfluids go from the mouth to the stomach to the small bowel. This is where most of the nutrients in the food and fluids are absorbed. After the small bowel, material passes through the large bowel for further absorption until any leftover material leaves the body as stool (feces) through the anus during a bowel movement. A bowel obstruction will prevent food and fluids from passing through the bowel as they normally doduring digestion. The bowel can become partially or completely blocked. If this condition is not treated, it can be dangerous because the bowel could rupture. What are the causes? Common causes of this condition include: Scar tissue in the body (adhesions) from previous surgery or treatment with high-energy X-rays (radiation). Recent surgery. This may cause the movements of the bowel to slow down and cause food to block the intestine. Inflammatory bowel disease, such as Crohn's disease or diverticulitis. Growths or tumors. A bulging organ or tissue (hernia). Twisting of the bowel (volvulus). A swallowed object (foreign body). Slipping of a part of the bowel into another part (intussusception). What are the signs or symptoms? Symptoms of this condition include: Pain in the abdomen. Depending on the degree of obstruction, pain may be: ?Mild or severe. ?Dull cramping or sharp pain. ?In one area or in the entire abdomen. Nausea and vomiting. Vomit may be greenish or a yellow bile color. Bloating in the abdomen. Constipation. Being unable to pass gas. Frequent belching. Diarrhea. This may occur if the obstruction is partial and runny stool is able to leak around the obstruction. How is this diagnosed? This condition may be diagnosed based on: A physical exam. Your medical history. Exams to look into the small intestine or the large intestine (endoscopy or colonoscopy). Imaging tests of the abdomen or pelvis, such as X-ray or CT scan. Blood or urine tests. How is this treated? Treatment for this condition depends on the cause and severity of the problem. Treatment may include: Fluids and pain medicines that are given through an IV. Your health care provider may tell you not to eat or drink if you have nausea or vomiting. A clear liquid diet. You may be asked to consume a clear liquid diet for several days. This allows the bowel to rest. Placement of a small tube (nasogastric tube) through the nose, down the throat, and into the stomach. This may relieve pain, discomfort, and nausea by removing blocked air and fluids from the stomach. It can also help the obstruction clear up faster. Surgery. This may be required if other treatments do not work. Surgery may be required for: ?Bowel obstruction from a hernia. This can be an emergency procedure. ?Scar tissue that causes frequent or severe obstructions. Follow these instructions at home: Medicines Take ffix-dsj-tfeipcq and prescription medicines only as told by your health care provider. If you were prescribed an antibiotic medicine, take it as told by your health care provider. Do notstop taking the antibiotic even if you start to feel better. General instructions Follow instructions from your health care provider about eating and drinking restrictions. You may need to avoid solid foods and drink only clear liquids until your condition improves. Return to your normal activities as told by your health care provider. Ask your health care provider what activities are safe for you. Rest as told by your health care provider. Avoid sitting for a long time without moving. Get up to take short walks every 1 2 hours. This is important to improve blood flow and breathing. Ask for help if you feel weak or unsteady. Keep all follow-up visits. This is important. How is this prevented? After having a bowel obstruction, you are more likely to have another. You may do the following things to prevent another obstruction: If you have a long-term (chronic) disease, pay attention to your symptoms and contact your health care provider if you have questions or concerns. Avoid becoming constipated. You may need to take these actions to prevent or treat constipation: ?Drink enough fluid to keep your urine pale yellow. ?Take hghj-gmk-hzkcfyk or prescription medicines. ?Eat foods that are high in fiber, such as beans, whole grains, and fresh fruits and vegetables. ?Limit foods that are high in fat and processed sugars, such as fried or sweet foods. Stay active. Exercise for 30 minutes or more, 5 or more days each week. Ask your health care provider which exercises are safe for you. Avoid stress. Find ways to reduce stress, such as meditation, exercise, or taking time for activities that relax you. Instead of eating three large meals each day, eat three small meals with three small snacks. Work with a dietitian to make a healthy meal plan that works for you. Do not use any products that contain nicotine or tobacco. These products include cigarettes, chewing tobacco, and vaping devices, such as e-cigarettes. If you need help quitting, ask your health careprovider. Contact a health care provider if: You have a fever. You have chills. Get help right away if: You have increased pain or cramping. You vomit blood. You have uncontrolled vomiting or nausea. You cannot drink fluids because of vomiting or pain. You become confused. You begin feeling very thirsty (dehydrated). You have severe bloating. You feel extremely weak or you faint. Summary A bowel obstruction is a blockage in the small or large bowel. A bowel obstruction will prevent food and fluids from passing through the bowel as they normally doduring digestion. Treatment for this condition depends on the cause and severity of the problem. It may include fluids and pain medicines through an IV, a simple diet, a nasogastric tube, or surgery. Follow instructions from your health care provider about eating restrictions. You may need to avoidsolid foods and consume only clear liquids until your condition improves. This information is not intended to replace advice given to you by your health care provider. Make sure you discuss any questions you have with your health care provider. Document Revised: 12/28/2021 Document Reviewed: 12/28/2021 [employer] Patient Education 2022 [employer]. Follow Up Care 06/15/2024 14:56:51 With:trauma clinic Address: [address] (2nd floor) [place], [place] [address]- [phone] When: only if needed Comments:Only if questions or concerns With:Natacha Oneill Address:Unknown When: Unknown Comments:to monitor hypertension [facility]07-21-2024 Evaluation + Plan noteExtracted from: Title:Progress/SOAP NoteAuthor:Navjot VALENTINE, Mariann ReeceDate:06/18/24 Ordered: hydrALAZINE, 10 mg = 0.5 mL, Injection, IV Push, Once, Stop date 06/18/24 17:28:00 EDT, STAT, Startdate 06/18/24 17:28:00 EDT, 06/18/24 17:28:00 EDT Capillary Glucose POC Capillary Glucose POC XR Small Bowel w/ Serial Films 83 y/o female with recent small bowel obstruction, discharged home today, but returned within two hours because she started having vomiting on the drive home. Notably, CT scan improved, no significant signs of obstruction. Does have a new anion gap since labs earlier this morning, ketones in her urine, mildly elevated beta-hydroxybutyrate. Concern for mild euglycemic DKA - she received her jardiance this morning, and she had previously been NPO until yesterday + stress of admission/bowel obstruction. Troponin wnl, ekg wnl. She was hypertensive on arrival to 230 systolic, improved with IV hydralazine. Differential includes recurrent bowel obstruction (looks less likely based on CT scan) vs mild euglycemic DKA secondary to jardiance. - D5NS running, give 5 units lispro and reassess. may need additional glucose. Repeat beta-hydroxybutyrate. Given how mild the abnormalities are, subQ insulin should be sufficient rather than insulindrip - NPO excepts meds/sips and chips - zofran - tylenol for pain control - selective home meds - PRN hydralazine/labetalol - telemetry - heparin for DVT prophylaxis, home PPI - admit to inpatient, anticipate >2 midnight stay Extracted from:Title:ED NoteAuthor:Jerrell Ramos DOJabariDate:06/18/24 Nausea & vomiting (R11.2: Na usea with vomiting, unspecified) Orders: ondansetron, 4 mg = 2 mL, Injection, IV Push, Once, Stop date 06/18/24 17:12:00 EDT, STAT, Start date 06/18/24 17:12:00 EDT, 06/18/24 17:12:00 EDT Sodium Chloride 0.9% intravenous solution 1,000 mL, 1,000 mL, IV, 125 mL/hr, STAT, Start date 06/18/24 17:12:00 EDT, 8 hour(s), Total volume (mL): 1,000, 60 kg, 1.59, m2 Basic Metabolic Panel CBC w/ Auto Diff CT Abdomen/Pelvis w/ Contrast ECG 12 Lead Adult ED Cardiac Monitoring eGFR Extra Blue Tube Hepatic Function Panel Lipase Level Saline Lock Insert UA with Cult Rflx Future Appointments Appointment Date:07/06/2024 10:45:00 AM Scheduled Provider:Natacha Oneill MD Location:[facility] Appointment Type: Open Appointment Date:08/08/2024 11:00:00 AM Scheduled Provider: Location:[facility] Appointment Type: Medicare Wellness Subsequent [facility] 07-19-2024 NoteProgress Note-Physician Basic Information 83 y/o female with small bowel obstruction, hx of distal pancreatectomy and splenectomy. Subjective Awake, alert, NG functional, states she feels much better now that her stomach has been decompressed. Denies flatus Objective Vitals & Measurements T: 36.4 ?C(Axillary) TMIN: 36.2 ?C(Oral) TMAX: 36.7 ?C(Oral) HR: 65(Apical) RR: 17 BP: 174/77 SpO2:93% HT: 152.40 cm WT: 58.7 kg Intake & Output This visit (24 hour periods starting at 07:00 EDT) 06/16/24 * 06/15/24 06/14/24 Total Summary Intake mL 12 516 -- Output mL 225 675 -- Fluid Balance -213 -159 -- Intake (6) Sodium Chloride 0.9% mL -- 500 -- famotidine mL 2 -- -- ketorolac mL -- 1 -- metoprolol mL 10 10 -- morphine mL -- 1 -- ondansetron mL -- 4 -- Total 12 516 -- Output (1) Gastric Tube Output mL 225 675 -- Total 225 675 -- Counts (0) * This column has not completed the indicated time period. Physical Exam Gen: lying in bed, alert, interactive CV: regular rate Pulm: respirations even and unlabored abdomen: soft, nontdistended, nontender Extremities: no cyanosis or edema Neuro: A&O x3 Lab Results WBC: 8.2 E9/L (06/16/24 05:57:00) RBC: 4.4 E12/L (06/16/24 05:57:00) HGB: 14.2 gm/dL (06/16/24 05:57:00) Hct: 42 % (06/16/24 05:57:00) MCV: 95.7 fL (06/16/24 05:57:00) MCH: 32.4 pg (06/16/24 05:57:00) MCHC: 33.9 gm/dL (06/16/24 05:57:00) RDW: 14 % (06/16/24 05:57:00) Platelet: 255 E9/L (06/16/24 05:57:00) MPV: 9 fL (06/16/24 05:57:00) Neutro Auto: 67.5 % (06/16/24 05:57:00) Lymph Auto: 17.6 % (06/16/24 05:57:00) [place] Auto: 13.2 % (06/16/24 05:57:00) Eos Auto: 1.5 % (06/16/24 05:57:00) Basophil Auto: 0.2 % (06/16/24 05:57:00) Neutro Absolute: 5.5 E9/L (06/16/24 05:57:00) Lymph Absolute: 1.4 E9/L (06/16/24 05:57:00) [place] Absolute: 1.1 E9/L High (06/16/24 05:57:00) Eos Absolute: 0.1 E9/L (06/16/24 05:57:00) Basophil Absolute: 0 E9/L (06/16/24 05:57:00) Glucose Lvl: 174 mg/dL (06/16/24 05:57:00) BUN: 32 mg/dL High (06/16/24 05:57:00) Creatinine: 0.9 mg/dL (06/16/24 05:57:00) eGFR: 63 mL/min/1.73 m2 (06/16/24 05:57:00) BUN/Creat Ratio: 36 High (06/16/24 05:57:00) Sodium Lvl: 139 mmol/L (06/16/24 05:57:00) Potassium Lvl: 3.8 mmol/L (06/16/24 05:57:00) Chloride: 99 mmol/L Low (06/16/24 05:57:00) CO2: 31 mmol/L (06/16/24 05:57:00) AGAP: 13 mEq/L (06/16/24 05:57:00) Calcium Lvl: 9.4 mg/dL (06/16/24 05:57:00) Magnesium: 2 mg/dL (06/16/24 05:57:00) Glucose Cap: 135 mg/dL High (06/16/24 12:31:00) POC Device SN: [id number] (06/16/24 12:31:00) POC User ID: [id number] (06/16/24 12:31:00) POC Username: BETH VELAZQUEZ (06/16/24 12:31:00) Assessment/Plan 1. SBO (small bowel obstruction) (K56.609: Unspecified intestinal obstruction, unspecified as to partial versus complete obstruction) Orders: Dextrose 5% in Lactated Ringers intravenous solution 1,000 mL, 1,000 mL, IV, 100 mL/hr, for 30 day(s), Stop date 07/15/24 19:50:00 EDT, Start date 06/15/24 19:51:00 EDT, 10 hour(s), Total volume (mL): 1,000, 56 kg, 1.54, m2 famotidine, 20 mg = 2 mL, Soln-IV, IV Push, Daily, Routine, Start date 06/16/24 9:00:00 EDT, 06/15/24 18:51:00 EDT glucose, 50 mL, Soln-IV, IV Push, Once PRN Blood glucose, Routine, Start date 06/15/24 18:14:00 EDT labetalol, 10 mg = 2 mL, Injection, IV Push, q2hr PRN Other (see comment), Routine, Start date 06/15/24 18:09:00 EDT, SBP >180, hold for HR <60 Capillary Glucose POC Capillary Glucose POC Capillary Glucose POC Capillary Glucose POC Capillary Glucose POC Hypoglycemia Protocol Responsive Patient Hypoglycemia Protocol Unresponsive Patient Physical Therapy Additional Tx Physical Therapy Evaluate Patient, Develop a Plan of Care and Implement Plan Routine Capillary Glucose POC 83 y/o female with small bowel obstruction. 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 Former smoker GERD (gastroesophageal reflux disease) HLD (hyperlipidemia) HTN (hypertension) Hyponatremia Hypovitaminosis D Interstitial lung disease Long-term insulin use Major depressive disorder, recurrent, in full remission Malnutrition Multiple falls OAB (overactive bladder) Osteopenia Pitting edema Shoulder pain, right Type 2 diabetes mellitus with hyperlipidemia UTI symptoms Weakness Historical Medications Inpatient acetaminophen additive + Gene (more content not included)...[facility]:Result Comment: Electronically Signed By: Navjot VALENTINE, Mariann Reece\.yonis\Date and Time Signed: 06/16/24 16:50 [id number] Note Interdisciplinary Note - PT PT Evaluation completed with an AMPAC score of 20/24. Pt was able to perform bed mobility with SBA and transfers with CGA. Pt was able to ambulate with FWW and CGA. Did use a FWW for more stability. Recommending PT HH services at this time, but [facility] Evaluation + Plan noteExtracted from:Title:Progress/SOAP NoteAuthor:Navjot VALENTINE, Mariann ReeceDate: 06/16/24 1. SBO (small bowel obstruct ion) (K56.609: Unspecified intestinal obstruction, unspecified as to partial versus complete obstruction) Orders: Dextrose 5% in Lactated Ringers intravenous solution 1,000 mL, 1,000 mL, IV, 100 mL/hr, for 30 day(s), Stop date 07/15/24 19:50:00 EDT, Start date 06/15/24 19:51:00 EDT, 10 hour(s), Total volume (mL): 1,000, 56 kg, 1.54, m2 famotidine, 20 mg = 2 mL, Soln-IV, IV Push, Daily, Routine, Start date 06/16/24 9:00:00 EDT, 06/15/24 18:51:00 EDT glucose, 50 mL, Soln-IV, IV Push, Once PRN Blood glucose, Routine, Start date 06/15/24 18:14:00 EDT labetalol, 10 mg = 2 mL, Injection, IV Push, q2hr PRN Other (see comment), Routine, Start date 06/15/24 18:09:00 EDT, SBP >180, hold for HR <60 Capillary Glucose POC Capillary Glucose POC Capillary Glucose POC Capillary Glucose POC Capillary Glucose POC Hypoglycemia Protocol Responsive Patient Hypoglycemia Protocol Unresponsive Patient Physical Therapy Additional Tx Physical Therapy Evaluate Patient, Develop a Plan of Care and Implement Plan Routine Capillary Glucose POC 83 y/o female with small bowel obstruction. - abdomen soft, benign s/p decompression, no leukocytosis - no flatus yet, but will continue decompression today and see if will resolve with nonop management - consider small bowel follow through tomorrow if continuing to to feel well - NPO, NG decompression, IV medications - SCDs, heparin - Pepcid for GI prophylaxis - remain on RNF while awaiting resolution of bowel obstruction Extracted from:Title:ED NoteAuthor:Laura Newberry PA-C NDate:06/15/24 1. SBO (small bowel obstruct ion) (K56.609: Unspecified intestinal obstruction, unspecified as to partial versus complete obstruction) 83-year-old female with past surgical history of pancreatectomy presents to the ER complaining of abdominal pain associate with nausea and vomiting. In the ER patient is afebrile, hypertensive, normal heart rate. Labs are reviewed noted, leukocytosis of 13.7 noted, no lactic acidosis. CT scan concerning for small bowel obstruction. NG tube was ordered along with pain medication and viscous lidocaine. Case was discussed with emergency general surgeon on-call, Dr. Morifn, who recommend admission to the EGS service. Dr. Morfin did present to the ER to examine the patient at bedside. All patient's questions were asked. Patient agreeable with plan. Future Appointments Appointment Date:07/06/2024 10:45:00 AM Scheduled Provider:Natahca Oneill MD Location:[facility] Appointment Type: Open Appointment Date:08/08/2024 11:00:00 AM Scheduled Provider: Location:[facility] Appointment Type:FM Medicare Wellness Subsequent [facility]07-18-2024 NoteHistory and Physical ACUTE CARE SURGERY CONSULT NOTE CHIEF COMPLAINT: abdominal pain HISTORY OF PRESENT ILLNESS: 83 y/o female presents with 3-4 days of abdominal pain and nausea. She states she started feeling unwell on Wednesday, with epigastric abdominal pain and her already low appetite was less than usual. She had nausea and vomiting for the last couple days, having short relief after vomiting, but then feeling sick again when she would eat. She states she had normal bowel movements until yesterday, when she had a very small one, and none today. Cannot remember the last time she passed flatus. She has had belching and nausea consistently. She has a history of pancreas surgery in the 90s, for which shestates she had two, but she cannot recall what the surgeries were. Per review of CT scan, she is mis sing distal pancreas and spleen, and it appears she has a small bowel anastomosis. She has never had pain like this before - has some pain in lower left quadrant and epigastric region. Does not take any blood thinners, but does take daily baby aspirin. Per her family, her appetite has been poor fora long time. She has hx of DM II but has had problems with hypoglycemia recently. 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 PRE-ADMISSION MEDICATIONS: albuterol: See Instructions, INHALE 2 PUFFS BY MOUTH EVERY 6 HOURS atorvastatin: 10 mg = 1 tab(s), Oral, Bedtime budesonide-formoterol: 2 puff(s), Inhalation, BID cholecalciferol: 75 mcg = 3 tab(s), Oral, Daily empagliflozin: See Instructions, TAKE 1 TABLET BY MOUTH EVERY MORNING fluconazole: 150 mg = 1 tab(s), Oral, Once insulin glargine: See Instructions, INJECT 10 UNITS SUBCUATANEOUSLY TWICE A DAY insulin lispro: See Instructions, TID AC [id number] 2U, 201-250 4U, 251-300 6U, 301-350 8U,351-400 10U, > 401 12U AND CALL PCP losartan: See Instructions, TAKE 1 TABLET BY MOUTH DAILY Misc Prescription (LANCETS OF CHOICE OR SPECIFIED BY INSURANCE.): See Instructions, USE TO TEST BLOOD GLUCOSE ONCE DAILY FOR DX E11.9 Misc Prescription (BLOOD GLUCOSE METER TEST STRIPS): See Instructions, BLOOD GLUCOSE METER TEST STRIPS OF CHOICE, OR SPECIFIED BY INSURANCE. USE WITH METER ONCE DAILY. DX E11.9 Misc Prescription (Pen [place]): See Instructions, To be used with giving insulin TID. Dx: E11.65 Misc Prescription (BD UF Nanno pen needle 4mm x32G): See Instructions, Use one pen needle with eachadministration of lantus BID and humalog TID. Dx E11.9 Misc Prescription (Freestyle Eduar 2 Flash Glucose Monitoring 14 Day System ([place])): See Instructions, Freestyle Eduar Flash Glucose Monitoring 14 Day System ([place]) Misc Prescription (Freestyle Eduar 2 Flash Glucose Monitoring 14 Day System (Sensor)): See Instructions, Freestyle Eduar Flash Glucose Monitoring 14 Day System (Sensor). Replace sensor every 14 days. Misc Prescription (Glucose Kit): See Instructions, Glucose meter. Include autolet, matching test strips, lancets, & alcohol wipes, #100 or as allowed by insurance; DX: E11.9 Misc Prescription (Freestyle Eduar 2 sensor): See Instructions, Free style Eduar 2 Misc Prescription (Blood Pressure Monitor) (Blood Pressure Monitor) (Blood Pressure Monitor) (BloodPressure Monitor) (Blood Pressure Monitor): See Instructions, Arm BP monitor multivitamin: 1 tab(s), Oral, Daily multivitamin with minerals: See Instructions, Take one daily omeprazole: 20 mg = 1 cap(s), Oral, Daily propranolol: 60 mg = 1 tab(s), Oral, Bedtime tizanidine: 4 mg = 1 cap(s), Oral, Bedtime trazodone: See Instructions, TAKE 1/2 TABLET BY MOUTH ONCE DAILY AT BEDTIME ALLERGIES: No Known Medication Allergies SOCIAL HISTORY: Alcohol Risk Assessment: Denies Alcohol Use Substance Abuse Risk Assessment: Denies Substance Abuse Tobacco Risk Assessment: Denies Tobacco Use; Details: Former smoker, quit more than 30 days ago Tobacco Use:. Never Smokeless Tobacco Use:. Cigarettes, Stopped age 59 Years. Household tobacco concerns: No. FAMILY HISTORY: Father: Diabetes mellitus type 2; Primary malignant neoplasm of lung Mother: Diabetes mellitus type 2 Sister: Acute myocardial infarction; Diabetes mellitus type 2; Hypothyroidism PHYSICAL EXAMINATION: Temperature 36.7 (15:14) Systolic Blood Pressure 169 (17:30) Diastolic Blood Pressure 85 (17:30) Pulse 101 (17:30) SpO2 97 (17:30) Respiratory Rate 16 (17:30) General: awake, alert, interactive Skin: warm, pink, dry Head: normocephalic Neck: Trachea midline Eye: normal conjunctiva, sclera clear Cardiovascular: regular rate and rhythm Respiratory: respirations even and unlabored on room air Gastrointestinal: soft, mildly distended, generalized tenderness without guarding or peritonitis, well healed midline scar Extremities: no deformity, no trauma Neurological: orient (more content not included)...[facility] Comment on above:Result Comment: Electronically Signed By: Navjot VALENTINE, Mariann Beaulieu.yonis\Date and Time Signed: 06/15/24 18:53 [id number] NotePHYSICAL THERAPY PROGRESS SUMMARY Patient seen from 09 to 09 on 6E unit for 25 minute treatment. SUBJECTIVE: Patient Subjective/Goals: Is there a lot of people out there, I look crappy OBJECTIVE: Appearance: Supine Behavior: WFL Pain: Site/Location: No complaints Mobility NA Dep Max Mod Min CG CS DS MA I Comment Roll to right sidelying x Roll to left sidelying x Sidelying to sit x Supine to sit x Transfers S Sit to/from stand S Walking on level surface x S 50 feet with no device and close supervision; mildly unsteady 150 feet with wheel walker and improved stability Gait Analysis: No LOB Stairs x Up/down 4 stairs with rails Stand to sit x Sit to Supine x Functional Endurance: Fair Patient/Family Education: Educated on roles of therapy Patient up in chair with call light in reach. Chair alarm intact. DME: With Patients permission ordered wheeled walker via [employer] Order. If any questions contact [facility] DME Provider at [phone]. 01/03/2024 6 Clicks Basic Mobility PT Difficulty turning over in bed 3 Difficulty sitting down and standing up from a chair with arms 3 Difficulty moving from lying on back to sitting on the side of the bed 3 Help from another person moving to and from bed to a chair 3 Help from another person to walk in hospital room 3 Help from another person climbing 3-5 steps with a railing 3 PT 6 Clicks Score 18 6 Click Score Guidelines: 1 - Total = Requires total assistance, or cannot do at all. 2 - A lot = Requires a lot of help (maximun to moderate assistance) Can use assistive devices. 3 - A little = Requires a little help (supervision, minimal assistance) Can use assistive devices. 4 - None = Does not require any help and does the activity independently. Can use assistive devices. ASSESSMENT: Patient is functionally appropriate for discharge home with prn assist once medically cleared. Recommend Home Physical Therapy. Goals (to be achieved by 10 days or by discharge from acute care): Patient will achieve acceptable level of pain control to allow participation in therapy. Patient will increase bed mobility to modified independent Patient will perform sit to/from stand with none with modified independent Patient will ambulate 150 feet with none with modified independent Patient will ascend/descend 4 stairs with 1 rail(s) and none with modified independent Patient will increase ROM/Strength/Endurance/Balance to allow for above goals. Patient/Family independent with exercise program/precautions. PLAN: Will follow established Plan of Care Carlos Gilbert PTA NA = Not Assessed, I = Independent, MA = Modified Independent, Sup = Supervised, Set up = Physical Assistance for Set-up Only, Min = Minimal Assistance, Mod = Moderate Assistance, Max = Maximal assistance; Dep = Dependent; AROM = Active Range of Motion; PROM = Passive Range of Motion; MMT = Manual Muscle TestThe [facility] [id number] Consult note* Carlos Gilbert - 01/05/2024 4:11 PM EST PHYSICAL THERAPY PROGRESS SUMMARY Patient seen from 919 to 944 on 6E unit for 25 minute treatment. SUBJECTIVE: Patient Subjective/Goals: Is there a lot of people out there, I look crappy OBJECTIVE: Appearance: Supine Behavior: WFL Pain: Site/Location: No complaints Mobility NA Dep Max Mod Min CG CS DS MA I Comment Roll to right sidelying x Roll to left sidelying x Sidelying to sit x Supine to sit x Transfers S Sit to/from stand S Walking on level surface x S 50 feet with no device and close supervision; mildly unsteady 150 feet with wheel walker and improved stability Gait Analysis: No LOB Stairs x Up/down 4 stairs with rails Stand to sit x Sit to Supine x Functional Endurance: Fair Patient/Family Education: Educated on roles of therapy Patient up in chair with call light in reach. Chair alarm intact. DME: With Patients permission ordered wheeled walker via [employer] Order. If any questions contact [facility] DME Provider at [phone]. 01/03/2024 6 Clicks Basic Mobility PT Difficulty turning over in bed 3 Difficulty sitting down and standing up from a chair with arms 3 Difficulty moving from lying on back to sitting on the side of the bed 3 Help from another person moving to and from bed to a chair 3 Help from another person to walk in hospital room 3 Help from another person climbing 3-5 steps with a railing 3 PT 6 Clicks Score 18 6 Click Score Guidelines: 1 - Total = Requires total assistance, or cannot do at all. 2 - A lot = Requires a lot of help (maximun to moderate assistance) Can use assistive devices. 3 - A little = Requires a little help (supervision, minimal assistance) Can use assistive devices. 4 - None = Does not require any help and does the activity independently. Can use assistive devices. ASSESSMENT: Patient is functionally appropriate for discharge home with prn assist once medically cleared. Recommend Home Physical Therapy. Goals (to be achieved by 10 days or by discharge from acute care): Patient will achieve acceptable level of pain control to allow participation in therapy. Patient will increase bed mobility to modified independent Patient will perform sit to/from stand with none with modified independent Patient will ambulate 150 feet with none with modified independent Patient will ascend/descend 4 stairs with 1 rail(s) and none with modified independent Patient will increase ROM/Strength/Endurance/Balance to allow for above goals. Patient/Family independent with exercise program/precautions. PLAN: Will follow established Plan of Care Carlos Gilbert PTA NA = Not Assessed, I = Independent, MA = Modified Independent, Sup = Supervised, Set up = Physical Assistance for Set-up Only, Min = Minimal Assistance, Mod = Moderate Assistance, Max = Maximal assistance; Dep = Dependent; AROM = Active Range of Motion; PROM = Passive Range of Motion; MMT = Manual Muscle Test [id number] Consult note* Carlos Gilbert - 01/05/2024 4:11 PM EST PHYSICAL THERAPY PROGRESS SUMMARY Patient seen from 919 to 944 on 6E unit for 25 minute treatment. SUBJECTIVE: Patient Subjective/Goals: Is there a lot of people out there, I look crappy OBJECTIVE: Appearance: Supine Behavior: WFL Pain: Site/Location: No complaints Mobility NA Dep Max Mod Min CG CS DS MA I Comment Roll to right sidelying x Roll to left sidelying x Sidelying to sit x Supine to sit x Transfers S Sit to/from stand S Walking on level surface x S 50 feet with no device and close supervision; mildly unsteady 150 feet with wheel walker and improved stability Gait Analysis: No LOB Stairs x Up/down 4 stairs with rails Stand to sit x Sit to Supine x Functional Endurance: Fair Patient/Family Education: Educated on roles of therapy Patient up in chair with call light in reach. Chair alarm intact. DME: With Patients permission ordered wheeled walker via [email or web address] Order. If any questions contact [facility] DME Provider at [phone]. 01/03/2024 6 Clicks Basic Mobility PT Difficulty turning over in bed 3 Difficulty sitting down and standing up from a chair with arms 3 Difficulty moving from lying on back to sitting on the side of the bed 3 Help from another person moving to and from bed to a chair 3 Help from another person to walk in hospital room 3 Help from another person climbing 3-5 steps with a railing 3 PT 6 Clicks Score 18 6 Click Score Guidelines: 1 - Total = Requires total assistance, or cannot do at all. 2 - A lot = Requires a lot of help (maximun to moderate assistance) Can use assistive devices. 3 - A little = Requires a little help (supervision, minimal assistance) Can use assistive devices. 4 - None = Does not require any help and does the activity independently. Can use assistive devices. ASSESSMENT: Patient is functionally appropriate for discharge home with prn assist once medically cleared. Recommend Home Physical Therapy. Goals (to be achieved by 10 days or by discharge from acute care): Patient will achieve acceptable level of pain control to allow participation in therapy. Patient will increase bed mobility to modified independent Patient will perform sit to/from stand with none with modified independent Patient will ambulate 150 feet with none with modified independent Patient will ascend/descend 4 stairs with 1 rail(s) and none with modified independent Patient will increase ROM/Strength/Endurance/Balance to allow for above goals. Patient/Family independent with exercise program/precautions. PLAN: Will follow established Plan of Care Carlos Gilbert PTA NA = Not Assessed, I = Independent, MA = Modified Independent, Sup = Supervised, Set up = Physical Assistance for Set-up Only, Min = Minimal Assistance, Mod = Moderate Assistance, Max = Maximal assistance; Dep = Dependent; AROM = Active Range of Motion; PROM = Passive Range of Motion; MMT = Manual Muscle Test * Millie Delacruz LSW - 01/05/2024 3:49 PM EST SW/CM has reviewed patient's chart and assessed that there are no discharge planning needs at this time. The following was reviewed to determine no SW/CM needs warranted. 1). PT/OT evaluations indicate pt can DC home with no needs or PT/OT evaluations are not warranted. 2). No wound care or IV Antibiotics indicated at this time. 3). No SW/CM consults placed through nursing admission screen 4). Pt does not meet the criteria of being a Medicare recipient that has a high or rising readmission rate. Patient will continue to be discussed in multi-disciplinary rounds and monitored daily. If any of the the above changes, SW/CM will complete appropriate assessments and interventions. SW met with pt at bedside this afternoon for assessment. No SDOH needs identified at this time. Pt is following up[ with OP PT per team recs. Millie Fay, ABDELRAHMAN, MLSP, HIDE MEASURING MACHINE OPERATOR PRN Bodily Injury Adjuster * Eveline Mark OT - 01/05/2024 12:19 PM EST OCCUPATIONAL THERAPY PROGRESS SUMMARY Patient seen from 1145 to 1205 on GC6E unit for 20 minute treatment. SUBJECTIVE: Patient Subjective/Goals: I would love to. Re: get washed up OBJECTIVE: Pain: 0/10 Pain Relief Interventions Implemented: None required; No pain at this time Appearance: seated in chair at onset, hospital gown, IV hep locked x2 Behavior: Awake, pleasant and cooperative Cognition: A&Ox3, follows one step commands consistently UE Status: BUE WFL for ADL Self Care: Assistance Level NA Dep Max Mod Min CG CS DS MA I Set-Up Cues Comment Feeding X Grooming/ Hygiene X Standing at sink to wash face and brush teeth, apply deodorant Bathing: Upper Body X Chair level with bath wipes Bathing: Lower Body X Chair level with bath wipes Dressing: Upper Body X Doff and don gowns x2 Dressing: Lower Body X Mgmt of mesh underwear and socks Toileting X +urinated on toilet, manages hygiene and clothing Toilet Transfers X Sit <> stand toilet to no AD Chair Transfer X Sit <> stand chair to no AD Bed Mobility X Functional Mobility X Ambulates short household distance with no AD, steady pace Patient remained seated in bedside chair at end of session. Chair alarm intact. Call mariscal and telephone within reach. RN aware of patient location and mobility status. Patient instructed to call RN assist for all mobility. Endurance for Self Care: Good Patient/Family Education: Instructed Patient in roles of therapy. DME: With Patients permission ordered no equipment via [email or web address] Order. If any questions contact [facility] DME Provider at [phone]. 01/05/2024 6 Clicks Daily Activity OT Help from another person Eating meals 4 Help from another person taking care of personal grooming 3 Help from another person bathing 3 Help from another person putting on and taking off regular upper body clothing 4 Help from another person putting on and taking off regular lower body clothing 3 Help from another person toileting 3 OT 6 Clicks Score 20 6 Click Score Guidelines: 1 - Unable = Total/Dependent Assist 2 - A lot = Max/Moderate Assist 3 - A little = Minimum/Contact Guard Assist/Supervision 4 - Non = Modified [place]/Independent ASSESSMENT: Patient is functionally appropriate for discharge home once medically cleared. Will continue to follow patient while in hospital as appropriate. Recommend increased family/caregiver assist for ADL, IADL, transportation. Recommend Home Occupational Therapy. Goals (to be achieved by discharge from acute care): ongoing unless indicated Patient will dress upper body with Modified Independent MET Patient will dress lower body with Modified Independent Patient will perform bed mobility with Modified Independent Patient will perform toileting with Modified Independent Patient will perform bed transfers with Modified Independent Patient will perform commode transfers with Modified Independent Patient will increase endurance sufficient to perform 10 min ADL with rest breaks PRN PLAN: Continue with Plan as per Initial Evaluation. Eveline Mark, MOT, OTR/L NA = Not Assessed, I = Independent, MA = Modified Independent, Sup = Supervised, Set up = Physical Assistance for Set-up Only, Min = Minimal Assistance, Mod = Moderate Assistance, Max = Max assistance; Dep = Dependent; AROM = Active Range of Motion;PROM=Passive Rangeof Motion; MMT = Manual Muscle Test; Shld= Shoulder; Add = Adduction; Abd = Abduction * Willow Riojas MD - 01/04/2024 4:17 PM ESTAssociated Order(s): IP ENDOCRINOLOGY CONSULT Images from the original note were not included. ENDOCRINOLOGY INPATIENT GLYCEMIC MANAGEMENT CONSULT NOTE Michelle Nash, 83 year old female, Room: [place] [address] Date Admitted: 01/03/2024, LOS: 1 day Reason for Consult: T2DM, hypoglycemia Attending Provider: Jamal Ansari MD HISTORY OF PRESENT ILLNESS Michelle Nash is a 83 year old female patient with past medical history of type 2 diabetes, hypertension, hyperlipidemia, GERD admitted with subdural hemorrhage status post fall. Patient was transferredfrom outside facility. Per previous notes, patient's blood sugars were 56. Recent change in insulindosing made by her primary Automatic Fancy Machine Operator Endocrinology glycemic management team consulted for further recommendations regarding insulin regimen Diabetes diagnosed: Greater than 10 years ago Last A1c: Unavailable, pending Last c-peptide: Unavailable, pending Weight: 60.9 kg eGFR: 74 Management of diabetes mellitus at home: Patient is on Lantus 20 units in the morning, Humalog 4 units with breakfast, 6 units with dinner. Patient uses only sliding scale at lunch. Also is on Jardiance, dose unknown. Patient states she takes her insulin and Jardiance very consistently. Does not miss any doses. Reports she has continuous glucose monitor. Reports she has frequent hypoglycemia every other day especially after meals in the evening. Denies blurred vision. Denies tingling or numbness of extremities. Reports occasional polyuria. Reports recent urinary tract infection. Patient states she has history of procedure related to her pancreas >20 years ago. She is unsureabout the details. Patient states she was stable on medications until this year, she was started on insulin 6 months ago due to significant hyperglycemia. Has 3 meals per day with occasional snacks. Has not been exercising lately. Patient was on metformin years ago and was stopped this year. Patient is unsure about the reason. Diabetes managed outpatient by: per pt Patient reports feeling better overall. Denies f/c, CP, SOB, cough, n/v, abd pain, new weakness. States appetite is improving but not back to normal. 10 point Review of Systems negative except as noted above. HISTORY PAST MEDICAL AND SURGICAL HISTORY: Type 2 diabetes Hypertension Hyperlipidemia GERD. FAMILY HISTORY: Denies family history of insulin dependent diabetes mellitus. Reports family history of CAD. CURRENT MEDICATIONS: Current Facility-Administered Medications Medication Dose Route Frequency Last Rate Last Admin insulin lispro (HumaLOG) 100 UNIT/ML injection 1-5 Units Subcutaneous 3x Daily AC insulin glargine (LANTUS SOLOSTAR/BASAGLAR KWIKPEN) 100 UNIT/ML PEN injection 10 Units SubcutaneousAt Bedtime tramadol (ULTRAM) tablet 50 mg Oral Q6H PRN 50 mg at 01/04/24 1129 acetaminophen (TYLENOL) tablet 650 mg Oral q6h propranolol tablet 30 mg 30 mg Oral 2x Daily 30 mg at 01/04/24 0939 senna (SENOKOT) tablet 8.6 mg Oral At Bedtime PRN docusate sodium (COLACE) capsule 100 mg Oral 2x Daily PRN amitriptyline (ELAVIL) tablet 10 mg Oral At Bedtime atorvastatin (LIPITOR) tablet 10 mg Oral At Bedtime 10 mg at 01/03/24 2121 ondansetron (ZOFRAN) 4 MG/2ML injection 4 mg Intravenous Push Q6H PRN 4 mg at 01/04/24 0702 miconazole (MICONAZORB AF) 2 % powder Topical 2x Daily Given at 01/04/24 0942 levETIRAcetam (KEPPRA) tablet 750 mg 750 mg Oral 2x Daily 750 mg at 01/04/24 0938 albuterol (PROVENTIL HFA) 108 (90 Base) MCG/ACT HFA inhaler 2 Puff Inhalation Q4H PRN petrolatum-zinc oxide (SENSI-CARE) 49-15 % ointment Topical BID Given at 01/04/24 0942 dextrose 10 % iv infusion 125 mL Intravenous PRN Or glucagon (GLUCAGEN) 1 MG injection 1 mg Subcutaneous PRN Or dextrose (GLUTOSE) 40 % oral gel 15 g of glucose Buccal PRN Or dextrose (GLUTOSE) 40 % oral gel 30 g of glucose Buccal PRN ALLERGIES: Denies any allergies. SOCIAL HISTORY: Social History Socioeconomic History Marital status: Denies smoking or alcohol use. OBJECTIVE Vitals: 01/04/24 1134 BP: 137/58 Pulse: 78 Resp: 18 Temp: 97.6 F (36.4 C) SpO2: 98% last BMI is undetermined because no height found and no weight found PHYSICAL EXAM: General appearance: no distress, cooperative Skin: Normal temperature and thickness. HEENT: Extraocular movements intact. Mouth: Moist mucous membranes. Lungs: Good breath sounds; no wheezes, rales or rhonchi Heart: Regular rate and rhythm. No murmurs, rubs or gallops Abdomen: Abdomen soft, non-tender. No apparent masses. Extremities: No edema. No tremor. No foot ulcers. Neuro: Alert, oriented x3. No motor deficits in upper or lower extremities. LAB RESULTS: Fingerstick Glucose (last 72 hours) Glucose 01/04/24 1134 172 01/04/24 0542 148 01/04/24 0006 117 01/03/24 1756 187 01/03/24 1204 161 Comment: Notified RN DAO VALENTINE
01/03/24 0838 82 01/03/24 0504 103 No results found for: HBA1C Basic Metabolic Panel Na K Cl CO2 Gap Glu BUN Cr Ca 01/04/24 0007 138 Comment: Note updated reference ranges. 3.9 Comment: Note updated reference ranges. Note updated reference ranges. 106 Comment: Note updated reference ranges. 22 Comment: Note updated reference ranges. 14 170 22 Comment: Note updated reference ranges. 0.79 Comment: Note updated reference ranges. 8.9 Comment: Note updated reference ranges. 01/03/24 0616 141 Comment: Note updated reference ranges. 3.8 Comment: Note updated reference ranges. Note updated reference ranges. 104 Comment: Note updated reference ranges. 25 Comment: Note updated reference ranges. 16 116 18 Comment: Note updated reference ranges. 0.51 Comment: Note updated reference ranges. 9.5 Comment: Note updated reference ranges. CBC (last 3 years, up to 5 values) WBC RBC Hgb Hct MCV RDW Plt 01/04/24 0007 7.2 3.71 11.9 36.1 97 14.0 262 01/03/24 0533 8.7 4.01 12.7 39.0 97 14.1 264 No results found for: NICKI C-Peptide, Serum Date Value Ref Range Status 01/03/2024 0.76 (L) 0.81 - 3.85 ng/mL Final No results found for: MICROALB Lipids (last 3 years, up to 5 values) None LFT's (last 3 years, up to 5 values) None No results found for: TSH ASSESSMENT AND PLAN Michelle Nash is a 83 year old female patient with past medical history of type 2 diabetes, hypertension, hyperlipidemia, GERD admitted with subdural hemorrhage status post fall. Patient was transferredfrom outside facility. Per previous notes, patient's blood sugars were 56. Recent change in insulindosing made by her primary Automatic Fancy Machine Operator Endocrinology glycemic management team consulted for further recommendations regarding insulin regimen #Type 2 Diabetes Mellitus A: Last HbA1c unavailable, pending. C peptide : pending At home, patient is on Lantus 20 units, Humalog 4 units with breakfast, 6 units with dinner, sliding scale at lunchtime. Patient reports both hyperglycemia and hypoglycemias on current regimen. Currently admitted after a fall and subdural hemorrhage following low blood sugar. Has significantly lower insulin requirements during hospital stay. Patient follows with endocrinology [facility]. No lab information available regarding recent A1c/C-peptide/prior blood sugar readings Recommend checking A1c and C-peptide to assess baseline control, pancreatic reserve. Recommend starting patient on low-dose of basal insulin to avoid further hypoglycemia. -Insulin glargine 10 units at bedtime Discussed with patient, that if she is consistently waking up with low blood sugars less than 90, decrease Lantus dose to 8 units. If she is waking up with hyperglycemia consistently greater than 200, increase Lantus to 12 units. -If patient on PO diet: -Accuchecks TID AC + at bedtime - -Insulin lispro correction scale TID AC Add to scheduled prandial insulin when possible. <150: Add 0 units of lispro 150-200: Add 0 units 201-250: Add 1 units 251-300: Add 2 units 301-350: Add 3 units 351-400: Add 4 units >401: Add 5 units -If patient NPO: -Accuchecks q6h -Insulin lispro correction q6h, use same scale as above. Recommend holding Jardiance at this time due to fluctuating blood sugars, recent urinary tract infection. Patient was advised to monitor her blood sugars closely and notify her endocrinology provider if she sees low blood sugars or persistently elevated blood sugars. -Pt will need f/u appointment with Endocrinology upon discharge. Patient was seen and plan of care formulated with Dr. Tinoco. Brittney Skelton MD. Fellow Endocrinology Division [facility] FAX [phone] Teaching note I saw and evaluated the patient with Dr. Castillo. I personally obtained the lane and critical portions of the history and physical exam. I reviewed documentation and discussed the patient with the fellow. I agree with the fellow's medical decision making as documented in Dr Castillo's note. Dr. Willow Tinoco * Gabriella Bowles CCC-INSPECTOR SCREEN PRINTING - 01/04/2024 12:34 PM EST SPEECH-LANGUAGE PATHOLOGY ACUTE TREATMENT NOTE [id number] Referral received, chart reviewed and history is noted. Time In: 1020 Time Out: 1047 Session Duration: 27 minutes Patient correctly identified by patient/armband correctly stating name and date of . SUBJECTIVE: Patient subjective/goals: I think I'm doing pretty good Pain: denies pain Scale (if yes): /10 Location: Supplemental Oxygen: room air Preferred Language: Pakistani Brand Ambassador Services: N/A OBJECTIVE: Language/Cognition Brief Cognitive Status Exam Subtest Raw Score Orientation 88 Time Estimation 03/02 Confrontation Naming 03/02 (Not calculated) Mental Control 10/10 Clock Drawing 03/02 Incidental Recall 07/06 Inhibition 16 Verbal Production 05/04 Total Raw Score (Maximum=58) 55/58 Classification Level by Age and Education Average WMS-IV Adult Record Form ASSESSMENT: Assessment of cognitive function was conducted with administration of Brief Cognitive Status Exam yielding a total score of 55/58 correlating with 'Average' classification for age and educational status. Appropriate problem solving, provides alternate/multiple solutions without difficulty. Adequateabstract reasoning. Recall of recent/daily events is WFL. Per pt/family report, pt is functioning at baseline; family involved in care and able to provide assist as needed. No further ST services indicated at this time. PLAN: Discharge ST services Goals: The patient will participate in further cognitive-linguistic assessment to contribute to evidence-based treatment plan. (GOAL MET) Recommendations: -Regular/Thin -No further ST services indicated at this time Gabriella Bowles M.A., CCC-INSPECTOR SCREEN PRINTING Speech-Language Pathologist Office: [phone] * Tita Duong OT - 01/03/2024 2:25 PM ESTAssociated Order(s): IP OCCUPATIONAL THERAPY SERVICE REQUEST OCCUPATIONAL THERAPY INITIAL EVALUATION Patient seen from 1340 to 1420 on GC 5 West unit for 40 minutes. Co-evaluation with PT for safe handling of ICU lines/monitors and to advance mobility of medically complex patient. Evaluation and treatment Reason for Admit: 83 y/o F adm s/p falls , + head strike. Patient hypoglycemic at OSH Diagnosis: SDH, SAH Precautions/Activity Order: fall, full code, progressive mobility, seizure Procedures this admit: none Past Medical and Surgical History: SUBJECTIVE: Patient Subjective: I'm picky about washing. Re: patient's response when asked if her family could help with laundry so she wouldn't have to walk down to basement Patient Identified Goal(s): go home Home Living Situation- lives at home with her , patient assists with ADLs Prior Functional Status: Independent Living, ambulates without device, drives (until 1 week ago, patient states her made her stop d/t falls) Assistance Available at Home: daughter assists with IADL PRN Patient lives in a 1 story home 1 stairs to enter. +basement laundry Full Bathroom on 1 level Bedroom on 1 level. Equipment available at home: cane, walker *patient is inconsistent historian re: # of falls /fall circumstances, patient also reports recent outpatient therapy for sugars but unable to provide details OBJECTIVE: Patient Identification: patient verbalizing his/her name and date of . Risks and benefits of occupational therapy: Patient informed of risks and benefits of treatment Appearance: IV, tele, BP cuff, pulse ox, external catheter Alertness: WFL Affect: flat Cooperation/Behavior: Appropriate dialogue with therapist, cooperative Communication: WFL Pain: Pain ratin/10, Location: headache Pain Relief Interventions Implemented: RN aware and reports patient received medication according to time schedule Self Care: Assistance Level Dep Max Mod Min CG CS DS MA I Set-Up Comment Feeding x Eating lunch beginning of session Grooming/Hygiene x Standing at sink to wash hands Bathing:UB x Anticipated Bathing:LB x Anticipated Dressing:UB x Don gown as robe standing at EOB Dressing: LB x Don socks seated EOB Toileting x At toilet Transfers/Bed Mobility: Assistance Level Dep Max Mod Min CG CS DS MA I Set-Up Comment Toilet Transfers x Use of grab bars Bed Transfers x Sit/stand from EOB Stand/sit in chair Bed Mobility x Supine to sit EOB Ambulation x Within room, bathroom, hallway Patient remained seated in bedside chair end of session with chair alarm in place d/t falls risk. Call mariscal and telephone within reach. Patient instructed to call for staff assist when ready to return to bed and for all mobility. RN aware of patient location and mobility status. Endurance for Self Care: Fair, standing rest breaks needed Static Sitting Balance: Good Dynamic Sitting Balance: Fair UE Motor: BUE AROM is WFL L UE strength 3-/5 R UE strength 4+/5 Vision/Perception: WFL Cognition: Orientation: Oriented to person, place, and time Follows Commands: one step commands Attention: WNL Memory: inconsistent report of recent history including 5+ falls Problem Solving: Impaired Safety/Judgement: Impaired Sequencing: WFL Other Specialized Tests: None Patient/Family Education: Instructed patient in roles of therapy, safety , discharge recommendations 01/03/2024 6 Clicks Daily Activity OT Help from another person Eating meals 3 Help from another person taking care of personal grooming 3 Help from another person bathing 3 Help from another person putting on and taking off regular upper body clothing 3 Help from another person putting on and taking off regular lower body clothing 3 Help from another person toileting 3 OT 6 Clicks Score 18 6 Click Score Guidelines: 1 - Unable = Total/Dependent Assist 2 - A lot = Max/Moderate Assist 3 - A little = Minimum/Contact Guard Assist/Supervision 4 - Non = Modified [place]/Independent ASSESSMENT: Anticipate patient will be functionally appropriate for discharge home once medically cleared. Recommend increased family/caregiver assist for ADL, IADL, transportation. Recommend outpatient neuro OT. Recommend Speech Therapy cognitive evaluation. Rehabilitation Potential: Good Problem List: decreased ADLs, decreased endurance, decreased functional transfers/mobility, and impaired balance Goals (to be achieved by discharge from acute care): Patient will dress upper body with Modified Independent Patient will dress lower body with Modified Independent Patient will perform bed mobility with Modified Independent Patient will perform toileting with Modified Independent Patient will perform bed transfers with Modified Independent Patient will perform commode transfers with Modified Independent Patient will increase endurance sufficient to perform 10 min ADL with rest breaks PRN PLAN: Michelle Nash will be seen 1-3 times a week. Treatment to include: functional mobility training and ADL retraining able to discuss the evaluation findings and treatment plan with the patient/family. The patient/family did participate in the development of plan and goals. Tita CRISTOBAL, OTR/L Pager: [phone] Secure chat preferred (7:30AM-4PM) NA = Not Assessed, I = Independent, MA = Modified Independent, Sup = Supervised, Set up = Physical Assistance for Set-up Only, Min = Minimal Assistance, Mod = Moderate Assistance, Max = Max assistance; Dep = Dependent; AROM = Active Range of Motion;PROM=Passive Rangeof Motion; MMT = Manual Muscle Test; UB = Upper Body; LB = Lower Body * Nigel Joe, PT - 01/03/2024 1:47 PM ESTAssociated Order(s): IP PHYSICAL THERAPY SERVICE REQUEST PHYSICAL THERAPY ACUTE EVALUATION Referral received, chart reviewed. Patient seen from 13:40 to 14:20 on 5W unit for 40 minutes. Eval + treat. Co- eval with OT. Patient required the skills of two therapists for safe mobility and high medical complexity of the patient. Admit date/time: 01/03/2024 5:18 AM Reason for Admit: s/p fall from standing Diagnosis: SDH SAH Precautions: Falls Full Code Seizure Progressive mobility Procedures this admit: N/a Past Medical and Surgical History: No past medical history on file. No past surgical history on file. Identification was verified by patient verbalizing his/her name and date of . and patient's idband and date of . 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 0 steps to bedroom/bathroom rails. 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 Equipment available: cane, rolling walker, bedside commode, and tub bench OBJECTIVE: Appearance: Impaired, overlay plastician, Pulse Oximeter, and IV Behavior: WFL Oriented x 3 Follows 1 step commands consistently and with cues Pain: Site/Location: 0; Pain Scale: 0/10 Pain Relief Interventions Implemented: n/a Passive ROM: WFL Strength/Active ROM: WFL B UE and B LE: 5/5 strength B LE coordination: mildly impaired B UE coordination: mildly impaired, see OT suri B LE sensation intact Educated patient about 2 feet on the ground rule after a TBI. Mobility: Rolling to right: contact guard Sidelying to sit: contact guard Sitting balance: Good Sit to stand: contact guard Transfers: contact guard, VC for sequencing Ambulation/Gait: Patient walked 150 ft without device, slow pace, decreased B LE step lengths, smooth sushila Stairs: up and down 4 steps with 1 rail CGA Endurance: Impaired Patient/Family Education: Instructed patient in roles of therapy. Instructed Patient in roles, goals, treatment plan: demonstrated good verbal understanding. Instructed patient in Exercise Program for Ankle pumps x10 reps Patient up in chair with call light in reach. Chair alarm intact. DME: With Patients permission ordered no equipment via [employer] Order. If any questions contact [facility] DME Provider at [phone]. 01/03/2024 6 Clicks Basic Mobility PT Difficulty turning over in bed 3 Difficulty sitting down and standing up from a chair with arms 3 Difficulty moving from lying on back to sitting on the side of the bed 3 Help from another person moving to and from bed to a chair 3 Help from another person to walk in hospital room 3 Help from another person climbing 3-5 steps with a railing 3 PT 6 Clicks Score 18 6 Click Score Guidelines: 1 - Total = Requires total assistance, or cannot do at all. 2 - A lot = Requires a lot of help (maximun to moderate assistance) Can use assistive devices. 3 - A little = Requires a little help (supervision, minimal assistance) Can use assistive devices. 4 - None = Does not require any help and does the activity independently. Can use assistive devices. ASSESSMENT: Michelle Nash is a 83 year old female s/p fall with SDH, SAH presents with decreased coordination and endurance, causing patient difficulty with ambulation quality/tolerance. Patient is functionally appropriate for discharge home with family supervision once medically cleared. Will continue to follow patient while in hospital as appropriate. Recommend outpatient neuro Physical Therapy for balance. Problems: Decreased ROM/strength Decreased functional mobility Decreased endurance Decreased balance Decreased education in exercise/precautions Rehabilitation Potential: Good Goals (to be achieved by 10 days or by discharge from acute care): Patient will achieve acceptable level of pain control to allow participation in therapy. Patient will increase bed mobility to modified independent Patient will perform sit to/from stand with none with modified independent Patient will ambulate 150 feet with none with modified independent Patient will ascend/descend 4 stairs with 1 rail(s) and none with modified independent Patient will increase ROM/Strength/Endurance/Balance to allow for above goals. Patient/Family independent with exercise program/precautions. PLAN OF CARE: Frequency: Patient to be seen 3-5 times a week Interventions: Functional mobility ROM/Strengthening Home exercise program Discharge planning and equipment ordering as needed Patient /Family education The evaluation findings and treatment plan were discussed with the patient/family. The patient/family indicated understanding and agreement with the plan. Nigel Joe, PT, DPT #[id number] NA = Not Assessed, I = Independent, MA = Modified Independent, Sup = Supervised, Set up = Physical Assistance for Set-up Only, Min = Minimal Assistance, Mod = Moderate Assistance, Max = Max assistance; Dep = Dependent; AROM = Active Range of Motion; PROM = Passive Range of Motion; MMT = Manual Muscle Test; LE = Lower Extremity * Patria Maldonado CCC-INSPECTOR SCREEN PRINTING - 01/03/2024 1:01 PM ESTAssociated Order(s): IP INSPECTOR SCREEN PRINTING SERVICE REQUEST SPEECH-LANGUAGE PATHOLOGY ACUTE EVAL Referral received, chart reviewed and history is noted. Time In: 1312 Time Out: 1332 Session Duration: 20minutes Patient was identified by patient/armband stating name and date of . Date of Onset: 01/03/2024 History/Diagnosis: Referral received for SAH/SDH. PMH HTN, HLD, ILD, T2DM, GERD, anxiety presentingto [place] after fall from standing. Was at pharmacy where she hit head onto exit door, fell backwardand hit head on floor. [place]TH at [place] demonstrated parafalcine SDH and SAH vs IPH on the anterior inferior frontal lobe. Precautions: fall, seizure, full code Imaging: CT Head w/o Contrast 01/03/2024: IMPRESSION: Expected evolution of intracranial hemorrhages. Acute right frontal parenchymal hematoma measuring 1.8 x 0.9 cm. Subcentimeter parafalcine and bilateral cerebral convexity subdural hematomas. No herniation or midline shift. Prior Level of Functioning: Lives at home with , caregiving for . SUBJECTIVE: Patient subjective/goals: I think I am doing pretty good. Pain: yes Scale (if yes): Location: ankle OBJECTIVE: Auditory Comprehension: -1 step commands: Intact -2 step commands: Intact -Bob White/biographical y/n questions: Intact -Abstract y/n questions: Intact -Open ended questions: Intact Verbal Expression: -Verbal output is fluent. -Confrontational Naming: Intact in 3/3 -Responsive Naming: Intact in 3/3 -Automatic speech tasks are intact in 2/2. Cognition: Orientation: PERSON: +name; + PLACE: +hospital name; +city TIME: +year; +JOHN; +DOM; +TOD Memory: Patient recalled recent events leading to hospitalization. Attention: Sustained/selective attention is intact. Adequate working memory for basic tasks (serialreversal of 1-20). Intact for mod level working memory tasks (serial reversal for months of the year.) Pragmatic Behavior: Pleasant, cooperative Speech: Speech Production: Patient is judged to be 100% intelligible at the conversational level. Speech production is precise. Fluency, prosody, and resonance are unremarkable. Phonation: low intensity, mild hoarseness Respiratory: Oxygen Requirements: room air SPO2: 97% per flowsheets Swallowing -Patient is currently on Regular/Thin DM liberal diet -Oral mucosa is pink and moist -Patient/family recall MBS study at [facility] over the summer 2022, but regular/thin diet was recommended per patient. [place] Swallow Protocol: State: alert; maintained across session Brief Cognitive Screen: What is your Name?: + Where are you right now?: + What year is it?: + Oral Mechanism Assessment: Tongue ROM: + Facial Symmetry: + Smile: + Pucker: + Lip Closure (cheek puff and hold): + 3-ounce water swallow challenge: Positioning: upright Mode of administration: cup, per patient preference Consecutive drinking of 3oz Thin water: yes; uninterrupted Cough/Throat Clear: none X PASS: Complete and uninterrupted drinking of all 3 ounces (90cc) of water without overt signs of aspiration (I.e. coughing or choking, either during or immediate after completion) *The [place] Swallow Protocol (YSP) is a standardized measure with high sensitivity(96.5%) and negative prediction value (97.9%). Other Consistencies Presented: Regular Solids Oral Phase: WFL bilabial seal w/o anterior spillage Mastication appears adequate for bolus breakdown No obvious oral residuals Pharyngeal Phase: No symptoms of airway invasion with all PO trials. Factors contributing to aspiration related pulmonary complications: Given pulmonary clearance, immune response, and bacteriological contents patient risk for aspiration related pulmonary complication is currently perceived to be LOW. Positive Impact Negative impact Pulmonary Clearance Medical Conditions (COPD, CHF, asthma) X Reduced function (reduced mobility/increased dependence for care) X Pulmonary health (h/o smoking, need for supplemental O2, need for inhaled medications) X Immune Response Nutritional Status X Medical co-morbidities X Presence of current infectious process X Bacteriological Contents Dependencies for oral care X Dental care/repair X Oral hygiene X Xerostomia X Diabetes X Acid Suppression therapy (PPI, H2 Blockers) X ASSESSMENT: Diagnosis: ? at baseline Impression: Michelle Nash is a 83 year old adult who was seen for initial speech and swallow evaluation this date. Based on informal assessment, clinical observation, and patient/family report, patient appears to be functioning at baseline in regard to speech, language and swallowing at this time. Complete cognitive-linguistic evaluation deferred today given patient's lunch tray arriving. Recommend follow up for further cognitive-linguistic evaluation as appropriate at a later date to rule out change from baseline s/p SDH. Educated patient and family on plan. PLAN: Treatment Modalities: cognitive-linguistic evaluation Frequency: pending evaluation results Goals: The patient will participate in further cognitive-linguistic assessment to contribute to evidence-based treatment plan. Prognosis: Good given + support, + PLOF, - age Recommendations: Diet: Continue Regular Solids and Thin Liquids Speech Therapy while in house Patria Maldonado M.S., CCC-INSPECTOR SCREEN PRINTING Speech Language Pathologist Office: [phone] * Gray Olmedo MD - 01/03/2024 5:50 AM ESTAssociated Order(s): IP SURGERY NEURO CONSULT NEUROSURGERY CRANIAL TRAUMA H&P Patient Name: Michelle Nash Primary Care Physician: No primary care provider on file. CONSULTED BY: Trauma CONSULTED FOR: SAH/SDH/IPH CHIEF COMPLAINT: I fell HPI: 83yo F w/ PMH HTN, HLD, ILD, T2DM, GERD, anxiety presenting to [place] after fall from standing. Was at pharmacy where she hit head onto exit door, fell backward and hit head on floor. [place] demonstrated parafalcine SDH and SAH vs IPH on the anterior inferior frontal lobe. Neurosurgery consulted for evaluation. Patient endorses story as above. Denies nausea, vomiting, blurry vision, dizziness, history of falls, bowel/bladder incontinence. Additional injuries include: None Antiplatelet/Anticoagulant: None Coags: Pending Sodium: Pending Previous TBI:No PAST MEDICAL HISTORY: No past medical history on file. PAST SURGICAL HISTORY: No past surgical history on file. FAMILY HISTORY: No family history on file. SOCIAL HISTORY: Social History Occupational History Not on file Tobacco Use Smoking status: Not on file Smokeless tobacco: Not on file Substance and Sexual Activity Alcohol use: Not on file Drug use: Not on file Sexual activity: Not on file MEDICATIONS: levETIRAcetam orderable 500 mg Every 12 hours insulin regular 2-12 Units Every 6 hours sodium chloride dextrose iv for hypoglycemia orderable 125 mL PRN Or glucagon 1 mg PRN Or dextrose 15 g of glucose PRN Or dextrose 30 g of glucose PRN ALLERGIES: Not on File COMPLETE REVIEW OF SYSTEMS: ROS / systems negative other than above LABS: Basic Metabolic Panel None PHYSICAL EXAM: Awake, Alert, Ox3 Following Commands Speech intact PERRL, EOMI FS, TM BUE 5/5, no drift BLE 5/5 Sensation intact to light touch throughout PHYSICAL EXAMINATION: Vital signs reviewed General appearance: normal appearing Skin: warm, dry Head: Normocephalic Nose/Sinuses: Nares normal. Neck: supple, trachea midline Lungs: chest symmetric, normal respiratory rate and rhythm Heart: NSR on tele monitor Abdomen: soft, nontender Extremities: Extremities normal. No deformities or edema Neuro: above RADIOLOGY: CTH: (Per [place] report): Focal SAH vs contra-coup IPH in inferior frontal lobe. Parafalcine SDH. [place] CT SCORE: 1. Basal cisterns: 0: Normal 2. Midline shift: 0: Less than or equal to 5 mm 3. Epidural mass lesion: 1: Absent 4. Intraventricular blood or traumatic SAH: 0: Absent Total Score: 2 (Calculated sum + 1) Six Month Mortality: Score 1: 0% Score 2: 7% Score 3: 16% Score 4: 26% Score 5: 53% Score 6: 61% 1. TBI sub-type: SAH, SDH: Less than 1 cm, and Contusion/ICH (Any Dimension): Less than 1 cm 2. Laterality: Right 3. Location: Frontal, Parafalcine/Tentorial 4. Pupillary response: Both reactive 5. Associated conditions: None 6. Loss of consciousness: None ASSESSMENT/PLAN: 83yo F w/ PMH HTN, HLD, ILD, T2DM, GERD, anxiety presenting to [place] after fall from standing. Was at pharmacy where she hit head onto exit door, fell backward and hit head on floor. [place] demonstrated parafalcine SDH and SAH vs IPH on the anterior inferior frontal lobe. Will plan to monitor with interval imaging. -ICU admission under trauma service -Q2 neuro checks -Repeat CT head 6 hours after initial imaging (~0700) -Keppra 750 mg BID x 7 days for seizure prophylaxis -SBP <170 per trauma guidelines -NPO -Ensure pre op labs complete (CBC, BMP, Type and Screen, PT/INR, PTT) -Hold all antiplatelets/anticoagulants -Plts >100, INR <1.4 -Normonatremia , normothermia (<38.0 C) , euvolemia -SCDs only at this time for DVT prophylaxis. Hold SQH at this time -No acute neurosurgical intervention. Will continue to follow Patient seen within 30 minutes of initial consultation. Recommendations provided directly to the trauma service. Above plan was discussed with the chief resident within 30 minutes of consult and discussed with the staff Dr. Olmedo who agrees with the above management. Please call anytime with questions or concerns. Kevin Coombs MD Neurosurgery, Resident Pager: [phone] 01/03/2024 - 5:50 AM Please page the on-call pager after 6pm and on weekends Split/Shared Documentation I approve the management plan for this patient and take responsibility for the plan as documented. Discussion of Management or Test Interpretation with External Physician/KAMLESH: I personally performedand discussed the management of case or test interpretation with sap pp consultant Dr. Olmedo with [facility]. Kevin Coobms MD Teaching Physician Note: I saw and evaluated the patient. I personally obtained the lane and critical portions of the historyand physical exam. I reviewed the resident's documentation and discussed the patient with the resident. I agree with the resident's medical decision making as documented in the resident's note. Gray Olmedo MD documented in this [id number] Consult note* Millie Delacruz LSW - 01/05/2024 3:49 PM EST SW/CM has reviewed patient's chart and assessed that there are no discharge planning needs at this time. The following was reviewed to determine no SW/CM needs warranted. 1). PT/OT evaluations indicate pt can DC home with no needs or PT/OT evaluations are not warranted. 2). No wound care or IV Antibiotics indicated at this time. 3). No SW/CM consults placed through nursing admission screen 4). Pt does not meet the criteria of being a Medicare recipient that has a high or rising readmission rate. Patient will continue to be discussed in multi-disciplinary rounds and monitored daily. If any of the the above changes, SW/CM will complete appropriate assessments and interventions. SW met with pt at bedside this afternoon for assessment. No SDOH needs identified at this time. Pt is following up[ with OP PT per team recs. Millie Fay, ABDELRAHMAN, MLSP, HIDE MEASURING MACHINE OPERATOR PRN Bodily Injury Adjuster [id number] NoteOCCUPATIONAL THERAPY PROGRESS SUMMARY Patient seen from 1145 to 1205 on GC6E unit for 20 minute treatment. SUBJECTIVE: Patient Subjective/Goals: I would love to. Re: get washed up OBJECTIVE: Pain: 0/10 Pain Relief Interventions Implemented: None required; No pain at this time Appearance: seated in chair at onset, hospital gown, IV hep locked x2 Behavior: Awake, pleasant and cooperative Cognition: A AND Ox3, follows one step commands consistently UE Status: BUE WFL for ADL Self Care: Assistance Level NA Dep Max Mod Min CG CS DS MA I Set-Up Cues Comment Feeding X Grooming/ Hygiene X Standing at sink to wash face and brush teeth, apply deodorant Bathing: Upper Body X Chair level with bath wipes Bathing: Lower Body X Chair level with bath wipes Dressing: Upper Body X Doff and don gowns x2 Dressing: Lower Body X Mgmt of mesh underwear and socks Toileting X +urinated on toilet, manages hygiene and clothing Toilet Transfers X Sit <> stand toilet to no AD Chair Transfer X Sit <> stand chair to no AD Bed Mobility X Functional Mobility X Ambulates short household distance with no AD, steady pace Patient remained seated in bedside chair at end of session. Chair alarm intact. Call mariscal and telephone within reach. RN aware of patient location and mobility status. Patient instructed to call RN assist for all mobility. Endurance for Self Care: Good Patient/Family Education: Instructed Patient in roles of therapy. DME: With Patients permission ordered no equipment via [employer] Order. If any questions contact [facility] DME Provider at [phone]. 01/05/2024 6 Clicks Daily Activity OT Help from another person Eating meals 4 Help from another person taking care of personal grooming 3 Help from another person bathing 3 Help from another person putting on and taking off regular upper body clothing 4 Help from another person putting on and taking off regular lower body clothing 3 Help from another person toileting 3 OT 6 Clicks Score 20 6 Click Score Guidelines: 1 - Unable = Total/Dependent Assist 2 - A lot = Max/Moderate Assist 3 - A little = Minimum/Contact Guard Assist/Supervision 4 - Non = Modified [place]/Independent ASSESSMENT: Patient is functionally appropriate for discharge home once medically cleared. Will continue to follow patient while in hospital as appropriate. Recommend increased family/caregiver assist for ADL, IADL, transportation. Recommend Home Occupational Therapy. Goals (to be achieved by discharge from acute care): ongoing unless indicated Patient will dress upper body with Modified Independent MET Patient will dress lower body with Modified Independent Patient will perform bed mobility with Modified Independent Patient will perform toileting with Modified Independent Patient will perform bed transfers with Modified Independent Patient will perform commode transfers with Modified Independent Patient will increase endurance sufficient to perform 10 min ADL with rest breaks PRN PLAN: Continue with Plan as per Initial Evaluation. Eveline Mark, MOT, OTR/L NA = Not Assessed, I = Independent, MA = Modified Independent, Sup = Supervised, Set up = Physical Assistance for Set-up Only, Min = Minimal Assistance, Mod = Moderate Assistance, Max = Max assistance; Dep = Dependent; AROM = Active Range of Motion;PROM=Passive Range of Motion; MMT = Manual Muscle Test; Shld= Shoulder; Add = Adduction; Abd = AbductionThe [facility] [id number] NoteDISCHARGE SUMMARY [address] [address] Michelle Nash Date of : 1940 83 year oldfemale Attending Jamal Ansari MD Date of Admission 01/03/2024 Date of Discharge 01/05/24 [facility] DIVISION OF ACUTE CARE SURGERY FINAL DIAGNOSES: Hospital Problems as of 01/05/2024 * (Principal) SDH (subdural hematoma) (HCC) SAH (subarachnoid hemorrhage) (HCC) PROCEDURES: None DISCHARGE MEDICATIONS: Current Discharge Medication List START taking these medications Details levETIRAcetam (KEPPRA) 750 MG tablet Take 1 Tablet by mouth 2 times daily for 10 doses. Qty: 10 Tablet, Refills: 0 CONTINUE these medications which have NOT CHANGED Details atorvastatin (LIPITOR) 10 MG tablet Take 10 mg by mouth daily. albuterol (PROVENTIL HFA) INHALATION HFA inhaler (VENTOLIN,PROAIR,PROVENTIL) 90mcg Inhale 2 Puffs by mouth every 4 hours as needed for Other (cough). losartan (COZAAR) 50 MG tablet Take 50 mg by mouth daily. Propranolol HCl 60 MG TABS Take 60 mg by mouth daily. budesonide-formoterol (Symbicort) 160-4.5 MCG/ACT inhaler Inhale 2 Puffs by mouth 2 times daily. metformin (GLUCOPHAGE) 500 MG tablet Take 500 mg by mouth 2 times daily (with meals). amitriptyline (ELAVIL) 10 MG tablet Take 10 mg by mouth at bedtime. ALPRAZolam (XANAX) 0.25 MG tablet Take 0.25 mg by mouth 2 times daily. STOP taking these medications tizanidine (ZANAFLEX) 4 MG capsule Comments: Reason for Stopping: REASON FOR HOSPITALIZATION: 83 female with a PMH of DM2 and HTN who presents as transfer from [facility] after a fall from standing. She denies taking blood thinners. Per patient, she was at [facility] when she lost balance due to the sliding doors. She also reports her bar roller recently changed her insulin regimen and thinks this may be related to her fall. Blood glucose at OSH was 56. GCS 15, no focal deficits. Transferred due to repeat imaging with 3mm SDH and trace SAH, requiring NSGY eval. SIGNIFICANT FINDINGS: Catalog of Injuries Right parafalcine subdural hematoma Subarachnoid hemorrhage (contre-coup injury) Incidental Findings None HOSPITAL COURSE: 01/03/2024: Admitted to SICU for q1h neuro checks, repeat CTH stable, transferred to [facility] 01/04/2024: Endocrinology consult obtained to assist with adjusting outpatient insulin regimen. 01/05/2024: No acute events overnight. New insulin regimen per Endocrinology. Patient discharged in stable condition. The patient was seen and examined on the day of discharge with the following findings: Constitutional: No acute distress. Cardiovascular: Regular rate Pulmonary/Chest: Breathing comfortably on room air Abdominal: Soft. Non-distended. Non-tender. Musculoskeletal: No edema. Neurological: GCS 15 Condition at discharge: improved Diet: No restrictions Restrictions: Weight lift/push: None Spine: Clear Extremity: None Functional status: IADLs Patient discharge to: Home ANTICIPATED FOLLOW UP: No future appointments. Other indicated follow up and instructions for scheduling: - Neurosurgery clinic in 2 weeks (Dr[address] Olmedo). She should obtain a repeat CTH prior to this appointment. - Endocrinology (home physician in [place]) Discharge Procedure Orders DME WALKER Order Comments: The patient has a mobility limitation that significantly impairs his/her ability to participate in one or more Mobility Related ADL (MRADLs) in the home. The patient is unable to safely use a cane or crutch, and can safely use the walker in their home. The functional mobility deficit can be sufficiently resolved with the use of a walker. Scheduling Instructions: You should expect to be contacted within 2 working days. If not, call [phone]. Order Specific Question Answer Comments Months needed (99 = lifetime) 99 Deliver Supplies To: Inpatient Unit Room and Bed: [address] Expected Discharge: Today Style: Folding - 2 wheeled (patient weight up to 500 lbs/226 kg) Walker type: Standard (for patient weight up to 350 lbs/158 kg) Patient last height 5' 0 01/03/2024 Patient last weight (kg) 60.92 kg 01/03/2024 CT HEAD W/O CONTRAST Standing Status: Future Standing Exp. Date: 01/03/25 Scheduling Instructions: To schedule your appointment at [place], [facility] or [place] please call [phone]. To schedule your appointment at any other site please call [phone] option 1 to schedule or reschedule this study. Or you can schedule using your [employer] account. On the day of the exam please arrive 15 minutes prior to your appointment time.. Order Specific Question Answer Comments Can the radiologist modify the order in the interest of radiological appropriateness (e.g. protocol optimization, addition or deletion of contrast or anatomic coverage) without contacting me? Yes Additional Inst.: Please obtain just prior to follow-up appointment in 2 weeks Sedation need (more content not included)...[employer] [id number] Consult note* Eveline Mark, OT - 01/05/2024 12:19 PM EST OCCUPATIONAL THERAPY PROGRESS SUMMARY Patient seen from 1145 to 1205 on GC6E unit for 20 minute treatment. SUBJECTIVE: Patient Subjective/Goals: I would love to. Re: get washed up OBJECTIVE: Pain: 0/10 Pain Relief Interventions Implemented: None required; No pain at this time Appearance: seated in chair at onset, hospital gown, IV hep locked x2 Behavior: Awake, pleasant and cooperative Cognition: A&Ox3, follows one step commands consistently UE Status: BUE WFL for ADL Self Care: Assistance Level NA Dep Max Mod Min CG CS DS MA I Set-Up Cues Comment Feeding X Grooming/ Hygiene X Standing at sink to wash face and brush teeth, apply deodorant Bathing: Upper Body X Chair level with bath wipes Bathing: Lower Body X Chair level with bath wipes Dressing: Upper Body X Doff and don gowns x2 Dressing: Lower Body X Mgmt of mesh underwear and socks Toileting X +urinated on toilet, manages hygiene and clothing Toilet Transfers X Sit <> stand toilet to no AD Chair Transfer X Sit <> stand chair to no AD Bed Mobility X Functional Mobility X Ambulates short household distance with no AD, steady pace Patient remained seated in bedside chair at end of session. Chair alarm intact. Call mariscal and telephone within reach. RN aware of patient location and mobility status. Patient instructed to call RN assist for all mobility. Endurance for Self Care: Good Patient/Family Education: Instructed Patient in roles of therapy. DME: With Patients permission ordered no equipment via [email or web address] Order. If any questions contact [facility] DME Provider at [phone]. 01/05/2024 6 Clicks Daily Activity OT Help from another person Eating meals 4 Help from another person taking care of personal grooming 3 Help from another person bathing 3 Help from another person putting on and taking off regular upper body clothing 4 Help from another person putting on and taking off regular lower body clothing 3 Help from another person toileting 3 OT 6 Clicks Score 20 6 Click Score Guidelines: 1 - Unable = Total/Dependent Assist 2 - A lot = Max/Moderate Assist 3 - A little = Minimum/Contact Guard Assist/Supervision 4 - Non = Modified [place]/Independent ASSESSMENT: Patient is functionally appropriate for discharge home once medically cleared. Will continue to follow patient while in hospital as appropriate. Recommend increased family/caregiver assist for ADL, IADL, transportation. Recommend Home Occupational Therapy. Goals (to be achieved by discharge from acute care): ongoing unless indicated Patient will dress upper body with Modified Independent MET Patient will dress lower body with Modified Independent Patient will perform bed mobility with Modified Independent Patient will perform toileting with Modified Independent Patient will perform bed transfers with Modified Independent Patient will perform commode transfers with Modified Independent Patient will increase endurance sufficient to perform 10 min ADL with rest breaks PRN PLAN: Continue with Plan as per Initial Evaluation. Eveline Mark, MOT, OTR/L NA = Not Assessed, I = Independent, MA = Modified Independent, Sup = Supervised, Set up = Physical Assistance for Set-up Only, Min = Minimal Assistance, Mod = Moderate Assistance, Max = Max assistance; Dep = Dependent; AROM = Active Range of Motion;PROM=Passive Rangeof Motion; MMT = Manual Muscle Test; Shld= Shoulder; Add = Adduction; Abd = Abduction [id number] Hospital Discharge instructions* Discharge Instructions* Verona Bean MD - 01/05/2024 10:50 AM EST Discharge Instructions: Date of admission: 01/03/2024 Date of discharge: 01/05/2024 You are being discharged to home Follow up: - Please call to schedule your follow-up appointments - information provided separately. - You will need to follow up with: - Neurosurgery in [address] Olmedo to follow-up on your head bleed - Radiology to obtain a repeat CT Head before the Neurosurgery appointment - Your bar roller in [place] in 1 week to follow-up on your insulin regimen - See below for information regarding contacting your primary care physician or establishing care at [facility] if you do not already have one. INSULIN INSTRUCTIONS Lantus 10 units in the morning, that means to skip tonight (01/05) and restart tomorrow morning (01/06) If after 2-3 days , you are consistently waking up with blood glucoses above 200, then increase lantus to 12 units. If having blood glucoses less than 90 more than 2 times per week, then decrease lantus to 8 units. Using the following Humalog insulin scale before meals only if blood sugars above 200 as follows: - 200-250: Take 1 unit - 251-300: Take 2 units - 300-350: Take 3 units - 350-400: Take 4 units - Above 400: Take 5 units Pain control: - For MILD to MODERATE pain (pain 1-6 out of 10 on a pain scale) take: -- Tylenol 325 mg, 1-2 tablets every 6 hours as needed. - If you are still having pain 30 min after taking Tylenol, add: -- Motrin 400 mg, 1 tablet every 6 hours as needed. -Wait 30 minutes to 1 hour after taking Tylenol and Motrin, then reassess your pain. Update your primary care physician or establish care: Please see your primary care physician at the next available appointment for follow up. Please call either on the day of your discharge, or the day after, to make the appointment. If you are followed by a managed care company or if your insurance requires, call your physician for authorization to be seen in a specialty clinic. If you do not have a primary physician please call [phone] for guidance on finding a [facility] provider. If you have questions or concerns , if your condition worsens or you develop new symptoms please call the [facility] Line at [phone]. documented in this [id number] Plan of care note* Care Plan Note - Kevin Ortega RN - 01/05/2024 10:27 AM EST Problem: Routine Care: Goal: Patient care will be managed and maintained throughout hospital stay per unit specific routine care procedure Outcome: Progressing Problem: Impaired Mobility: Goal: Ability to maintain or regain baseline function will be acheived Outcome: Progressing Goal: Will be free of DVT Outcome: Progressing Problem: VTE Prophylaxis: Goal: Will be free of DVT Outcome: Progressing Problem: Fluid and Electrolyte Imbalance: Goal: Adequate fluid and electrolyte balance will be achieved and maintained Outcome: Progressing Problem: Altered Neurological Status: Goal: Optimal neurological status will be maintained or regained Outcome: Progressing Goal: Altered Level of Consciousness will improve Outcome: Progressing Problem: Acute Pain: Goal: Ability to identify pain intensity on a pain scale and rate it consistently will be achieved and maintained Outcome: Progressing Goal: Acceptable level of pain which allows the patient to achieve functional outcome goals Outcome: Progressing Problem: Safety: Goal: Patient will remain free of falls during hospital stay Outcome: Progressing Goal: Free from injury during hospitalization Outcome: Progressing Problem: Discharge Planning: Goal: Discharge needs of the adult patient will be met Outcome: Progressing Problem: Glucose Imbalance: Goal: Ability to maintain appropriate glucose levels will be achieved and maintained Outcome: Progressing [id number] Miscellaneous Notes* Care Plan Note - Kevin Ortega RN - 01/05/2024 10:27 AM EST Problem: Routine Care: Goal: Patient care will be managed and maintained throughout hospital stay per unit specific routine care procedure Outcome: Progressing Problem: Impaired Mobility: Goal: Ability to maintain or regain baseline function will be acheived Outcome: Progressing Goal: Will be free of DVT Outcome: Progressing Problem: VTE Prophylaxis: Goal: Will be free of DVT Outcome: Progressing Problem: Fluid and Electrolyte Imbalance: Goal: Adequate fluid and electrolyte balance will be achieved and maintained Outcome: Progressing Problem: Altered Neurological Status: Goal: Optimal neurological status will be maintained or regained Outcome: Progressing Goal: Altered Level of Consciousness will improve Outcome: Progressing Problem: Acute Pain: Goal: Ability to identify pain intensity on a pain scale and rate it consistently will be achieved and maintained Outcome: Progressing Goal: Acceptable level of pain which allows the patient to achieve functional outcome goals Outcome: Progressing Problem: Safety: Goal: Patient will remain free of falls during hospital stay Outcome: Progressing Goal: Free from injury during hospitalization Outcome: Progressing Problem: Discharge Planning: Goal: Discharge needs of the adult patient will be met Outcome: Progressing Problem: Glucose Imbalance: Goal: Ability to maintain appropriate glucose levels will be achieved and maintained Outcome: Progressing * Care Plan Note - Kacey Morillo LPN - 01/05/2024 5:13 AM EST Problem: Routine Care: Goal: Patient care will be managed and maintained throughout hospital stay per unit specific routine care procedure Outcome: Progressing Problem: Impaired Mobility: Goal: Ability to maintain or regain baseline function will be acheived Outcome: Progressing Goal: Will be free of DVT Outcome: Progressing Problem: VTE Prophylaxis: Goal: Will be free of DVT Outcome: Progressing Problem: Fluid and Electrolyte Imbalance: Goal: Adequate fluid and electrolyte balance will be achieved and maintained Outcome: Progressing Problem: Altered Neurological Status: Goal: Optimal neurological status will be maintained or regained Outcome: Progressing Goal: Altered Level of Consciousness will improve Outcome: Progressing Problem: Acute Pain: Goal: Ability to identify pain intensity on a pain scale and rate it consistently will be achieved and maintained Outcome: Progressing Goal: Acceptable level of pain which allows the patient to achieve functional outcome goals Outcome: Progressing Problem: Safety: Goal: Patient will remain free of falls during hospital stay Outcome: Progressing Goal: Free from injury during hospitalization Outcome: Progressing Problem: Discharge Planning: Goal: Discharge needs of the adult patient will be met Outcome: Progressing Problem: Glucose Imbalance: Goal: Ability to maintain appropriate glucose levels will be achieved and maintained Outcome: Progressing * Care Plan Note - Kevin Ortega RN - 01/04/2024 10:40 AM EST Problem: Routine Care: Goal: Patient care will be managed and maintained throughout hospital stay per unit specific routine care procedure Outcome: Progressing Problem: Impaired Mobility: Goal: Ability to maintain or regain baseline function will be acheived Outcome: Progressing Goal: Will be free of DVT Outcome: Progressing Problem: VTE Prophylaxis: Goal: Will be free of DVT Outcome: Progressing Problem: Fluid and Electrolyte Imbalance: Goal: Adequate fluid and electrolyte balance will be achieved and maintained Outcome: Progressing Problem: Altered Neurological Status: Goal: Optimal neurological status will be maintained or regained Outcome: Progressing Goal: Altered Level of Consciousness will improve Outcome: Progressing Problem: Acute Pain: Goal: Ability to identify pain intensity on a pain scale and rate it consistently will be achieved and maintained Outcome: Progressing Goal: Acceptable level of pain which allows the patient to achieve functional outcome goals Outcome: Progressing Problem: Safety: Goal: Patient will remain free of falls during hospital stay Outcome: Progressing Goal: Free from injury during hospitalization Outcome: Progressing Problem: Discharge Planning: Goal: Discharge needs of the adult patient will be met Outcome: Progressing Problem: Glucose Imbalance: Goal: Ability to maintain appropriate glucose levels will be achieved and maintained Outcome: Progressing * Treatment Plan Note - Nely Franklin PA-C - 01/03/2024 9:28 AM EST Neurosurgery Treatment Plan Note rCTH imaging reviewed and discussed with attending, Dr. Olmedo. Jessica. Plan - Imaging reviewed - Please have patient follow-up in NSGY clinic in 2 weeks with rCTH without contrast just prior to appointment - Neurosurgery to sign off at this time. Please call anytime with questions or concerns. Nely Franklin PA-C Neurosurgery Service Pager: [phone] 01/03/2024 - 9:28 AM documented in this [id number] Plan of care note* Care Plan Note - Kacey Morillo LPN - 01/05/2024 5:13 AM EST Problem: Routine Care: Goal: Patient care will be managed and maintained throughout hospital stay per unit specific routine care procedure Outcome: Progressing Problem: Impaired Mobility: Goal: Ability to maintain or regain baseline function will be acheived Outcome: Progressing Goal: Will be free of DVT Outcome: Progressing Problem: VTE Prophylaxis: Goal: Will be free of DVT Outcome: Progressing Problem: Fluid and Electrolyte Imbalance: Goal: Adequate fluid and electrolyte balance will be achieved and maintained Outcome: Progressing Problem: Altered Neurological Status: Goal: Optimal neurological status will be maintained or regained Outcome: Progressing Goal: Altered Level of Consciousness will improve Outcome: Progressing Problem: Acute Pain: Goal: Ability to identify pain intensity on a pain scale and rate it consistently will be achieved and maintained Outcome: Progressing Goal: Acceptable level of pain which allows the patient to achieve functional outcome goals Outcome: Progressing Problem: Safety: Goal: Patient will remain free of falls during hospital stay Outcome: Progressing Goal: Free from injury during hospitalization Outcome: Progressing Problem: Discharge Planning: Goal: Discharge needs of the adult patient will be met Outcome: Progressing Problem: Glucose Imbalance: Goal: Ability to maintain appropriate glucose levels will be achieved and maintained Outcome: Progressing [id number] Consult note* Willow Riojas MD - 01/04/2024 4:17 PM ESTAssociated Order(s): IP ENDOCRINOLOGY CONSULT Images from the original note were not included. ENDOCRINOLOGY INPATIENT GLYCEMIC MANAGEMENT CONSULT NOTE Michelle Nash, 83 year old female, Room: [place] [address] Date Admitted: 01/03/2024, LOS: 1 day Reason for Consult: T2DM, hypoglycemia Attending Provider: Jamal Ansari MD HISTORY OF PRESENT ILLNESS Michelle Nash is a 83 year old female patient with past medical history of type 2 diabetes, hypertension, hyperlipidemia, GERD admitted with subdural hemorrhage status post fall. Patient was transferredfrom outside facility. Per previous notes, patient's blood sugars were 56. Recent change in insulindosing made by her primary Automatic Fancy Machine Operator Endocrinology glycemic management team consulted for further recommendations regarding insulin regimen Diabetes diagnosed: Greater than 10 years ago Last A1c: Unavailable, pending Last c-peptide: Unavailable, pending Weight: 60.9 kg eGFR: 74 Management of diabetes mellitus at home: Patient is on Lantus 20 units in the morning, Humalog 4 units with breakfast, 6 units with dinner. Patient uses only sliding scale at lunch. Also is on Jardiance, dose unknown. Patient states she takes her insulin and Jardiance very consistently. Does not miss any doses. Reports she has continuous glucose monitor. Reports she has frequent hypoglycemia every other day especially after meals in the evening. Denies blurred vision. Denies tingling or numbness of extremities. Reports occasional polyuria. Reports recent urinary tract infection. Patient states she has history of procedure related to her pancreas >20 years ago. She is unsureabout the details. Patient states she was stable on medications until this year, she was started on insulin 6 months ago due to significant hyperglycemia. Has 3 meals per day with occasional snacks. Has not been exercising lately. Patient was on metformin years ago and was stopped this year. Patient is unsure about the reason. Diabetes managed outpatient by: per pt Patient reports feeling better overall. Denies f/c, CP, SOB, cough, n/v, abd pain, new weakness. States appetite is improving but not back to normal. 10 point Review of Systems negative except as noted above. HISTORY PAST MEDICAL AND SURGICAL HISTORY: Type 2 diabetes Hypertension Hyperlipidemia GERD. FAMILY HISTORY: Denies family history of insulin dependent diabetes mellitus. Reports family history of CAD. CURRENT MEDICATIONS: Current Facility-Administered Medications Medication Dose Route Frequency Last Rate Last Admin insulin lispro (HumaLOG) 100 UNIT/ML injection 1-5 Units Subcutaneous 3x Daily AC insulin glargine (LANTUS SOLOSTAR/BASAGLAR KWIKPEN) 100 UNIT/ML PEN injection 10 Units SubcutaneousAt Bedtime tramadol (ULTRAM) tablet 50 mg Oral Q6H PRN 50 mg at 01/04/24 1129 acetaminophen (TYLENOL) tablet 650 mg Oral q6h propranolol tablet 30 mg 30 mg Oral 2x Daily 30 mg at 01/04/24 0939 senna (SENOKOT) tablet 8.6 mg Oral At Bedtime PRN docusate sodium (COLACE) capsule 100 mg Oral 2x Daily PRN amitriptyline (ELAVIL) tablet 10 mg Oral At Bedtime atorvastatin (LIPITOR) tablet 10 mg Oral At Bedtime 10 mg at 01/03/242120 ondansetron (ZOFRAN) 4 MG/2ML injection 4 mg Intravenous Push Q6H PRN 4 mg at 01/04/24 0702 miconazole (MICONAZORB AF) 2 % powder Topical 2x Daily Given at 01/04/24 0942 levETIRAcetam (KEPPRA) tablet 750 mg 750 mg Oral 2x Daily 750 mg at 01/04/24 0938 albuterol (PROVENTIL HFA) 108 (90 Base) MCG/ACT HFA inhaler 2 Puff Inhalation Q4H PRN petrolatum-zinc oxide (SENSI-CARE) 49-15 % ointment Topical BID Given at 01/04/24 0942 dextrose 10 % iv infusion 125 mL Intravenous PRN Or glucagon (GLUCAGEN) 1 MG injection 1 mg Subcutaneous PRN Or dextrose (GLUTOSE) 40 % oral gel 15 g of glucose Buccal PRN Or dextrose (GLUTOSE) 40 % oral gel 30 g of glucose Buccal PRN ALLERGIES: Denies any allergies. SOCIAL HISTORY: Social History Socioeconomic History Marital status: Denies smoking or alcohol use. OBJECTIVE Vitals: 01/04/24 1134 BP: 137/58 Pulse: 78 Resp: 18 Temp: 97.6 F (36.4 C) SpO2: 98% last BMI is undetermined because no height found and no weight found PHYSICAL EXAM: General appearance: no distress, cooperative Skin: Normal temperature and thickness. HEENT: Extraocular movements intact. Mouth: Moist mucous membranes. Lungs: Good breath sounds; no wheezes, rales or rhonchi Heart: Regular rate and rhythm. No murmurs, rubs or gallops Abdomen: Abdomen soft, non-tender. No apparent masses. Extremities: No edema. No tremor. No foot ulcers. Neuro: Alert, oriented x3. No motor deficits in upper or lower extremities. LAB RESULTS: Fingerstick Glucose (last 72 hours) Glucose 01/04/24 1134 172 01/04/24 0542 148 01/04/24 0006 117 01/03/24 1756 187 01/03/24 1204 161 Comment: Notified VÍCTOR DC MD 01/03/24 0838 82 01/03/24 0504 103 No results found for: HBA1C Basic Metabolic Panel Na K Cl CO2 Gap Glu BUN Cr Ca 01/04/24 0007 138 Comment: Note updated reference ranges. 3.9 Comment: Note updated reference ranges. Note updated reference ranges. 106 Comment: Note updated reference ranges. 22 Comment: Note updated reference ranges. 14 170 22 Comment: Note updated reference ranges. 0.79 Comment: Note updated reference ranges. 8.9 Comment: Note updated reference ranges. 01/03/24 0616 141 Comment: Note updated reference ranges. 3.8 Comment: Note updated reference ranges. Note updated reference ranges. 104 Comment: Note updated reference ranges. 25 Comment: Note updated reference ranges. 16 116 18 Comment: Note updated reference ranges. 0.51 Comment: Note updated reference ranges. 9.5 Comment: Note updated reference ranges. CBC (last 3 years, up to 5 values) WBC RBC Hgb Hct MCV RDW Plt 01/04/24 0007 7.2 3.71 11.9 36.1 97 14.0 262 01/03/24 0533 8.7 4.01 12.7 39.0 97 14.1 264 No results found for: NICKI C-Peptide, Serum Date Value Ref Range Status 01/03/2024 0.76 (L) 0.81 - 3.85 ng/mL Final No results found for: MICROALB Lipids (last 3 years, up to 5 values) None LFT's (last 3 years, up to 5 values) None No results found for: TSH ASSESSMENT AND PLAN Michelle Nash is a 83 year old female patient with past medical history of type 2 diabetes, hypertension, hyperlipidemia, GERD admitted with subdural hemorrhage status post fall. Patient was transferredfrom outside facility. Per previous notes, patient's blood sugars were 56. Recent change in insulindosing made by her primary Automatic Fancy Machine Operator Endocrinology glycemic management team consulted for further recommendations regarding insulin regimen #Type 2 Diabetes Mellitus A: Last HbA1c unavailable, pending. C peptide : pending At home, patient is on Lantus 20 units, Humalog 4 units with breakfast, 6 units with dinner, sliding scale at lunchtime. Patient reports both hyperglycemia and hypoglycemias on current regimen. Currently admitted after a fall and subdural hemorrhage following low blood sugar. Has significantly lower insulin requirements during hospital stay. Patient follows with endocrinology [facility]. No lab information available regarding recent A1c/C-peptide/prior blood sugar readings Recommend checking A1c and C-peptide to assess baseline control, pancreatic reserve. Recommend starting patient on low-dose of basal insulin to avoid further hypoglycemia. -Insulin glargine 10 units at bedtime Discussed with patient, that if she is consistently waking up with low blood sugars less than 90, decrease Lantus dose to 8 units. If she is waking up with hyperglycemia consistently greater than 200, increase Lantus to 12 units. -If patient on PO diet: -Accuchecks TID AC + at bedtime - -Insulin lispro correction scale TID AC Add to scheduled prandial insulin when possible. <150: Add 0 units of lispro 150-200: Add 0 units 201-250: Add 1 units 251-300: Add 2 units 301-350: Add 3 units 351-400: Add 4 units >401: Add 5 units -If patient NPO: -Accuchecks q6h -Insulin lispro correction q6h, use same scale as above. Recommend holding Jardiance at this time due to fluctuating blood sugars, recent urinary tract infection. Patient was advised to monitor her blood sugars closely and notify her endocrinology provider if she sees low blood sugars or persistently elevated blood sugars. -Pt will need f/u appointment with Endocrinology upon discharge. Patient was seen and plan of care formulated with Dr. Tinoco. Brittney Skelton MD. Fellow Endocrinology Division [facility] FAX [phone] Teaching note I saw and evaluated the patient with Dr. Castillo. I personally obtained the lane and critical portions of the history and physical exam. I reviewed documentation and discussed the patient with the fellow. I agree with the fellow's medical decision making as documented in Dr Castillo's note. Dr. Willow Tinoco [facility] Work Phone: [phone]) 991-284302-06-2024 NoteSPEECH-LANGUAGE PATHOLOGY ACUTE TREATMENT NOTE [id number] Referral received, chart reviewed and history is noted. Time In: 1020 Time Out: 1047 Session Duration: 27 minutes Patient correctly identified by patient/armband correctly stating name and date of . SUBJECTIVE: Patient subjective/goals: I think I'm doing pretty good Pain: denies pain Scale (if yes): /10 Location: Supplemental Oxygen: room air Preferred Language: Pakistani Brand Ambassador Services: N/A OBJECTIVE: Language/Cognition Brief Cognitive Status Exam Subtest Raw Score Orientation 07/06 Time Estimation 03/02 Confrontation Naming 03/02 (Not calculated) Mental Control 10/10 Clock Drawing 03/02 Incidental Recall 07/06 Inhibition 16 Verbal Production 05/04 Total Raw Score (Maximum=58) 55/58 Classification Level by Age and Education Average WMS-IV Adult Record Form ASSESSMENT: Assessment of cognitive function was conducted with administration of Brief Cognitive Status Exam yielding a total score of 55/58 correlating with 'Average' classification for age and educational status. Appropriate problem solving, provides alternate/multiple solutions without difficulty. Adequate abstract reasoning. Recall of recent/daily events is WFL. Per pt/family report, pt is functioning at baseline; family involved in care and able to provide assist as needed. No further ST services indicated at this time. PLAN: Discharge ST services Goals: The patient will participate in further cognitive-linguistic assessment to contribute to evidence-based treatment plan. (GOAL MET) Recommendations: -Regular/Thin -No further ST services indicated at this time Gabriella Bowles M.A., CCC-INSPECTOR SCREEN PRINTING Speech-Language Pathologist Office: [id number] [facility]02-06-2024 NoteSW Coverage Note Per interdisciplinary team conference this AM, CLARISSA of 1-2 days with OP therapy recs. Team adjusting pt's insulin. Medical team to alert SW if there is a change in medical readiness for transfer/DC. SW will continue to follow. Millie Fay, ABDELARHMAN, MLSP, HIDE MEASURING MACHINE OPERATOR PRN Bodily Injury Adjuster - Care Coordination DepartmentThe [facility] Consult note* Gabriella Bowles, JOSE-INSPECTOR SCREEN PRINTING - 01/04/2024 12:34 PM EST SPEECH-LANGUAGE PATHOLOGY ACUTE TREATMENT NOTE [id number] Referral received, chart reviewed and history is noted. Time In: 1020 Time Out: 1047 Session Duration: 27 minutes Patient correctly identified by patient/armband correctly stating name and date of . SUBJECTIVE: Patient subjective/goals: I think I'm doing pretty good Pain: denies pain Scale (if yes): 10 Location: Supplemental Oxygen: room air Preferred Language: Pakistani Brand Ambassador Services: N/A OBJECTIVE: Language/Cognition Brief Cognitive Status Exam Subtest Raw Score Orientation 07/06 Time Estimation 03/02 Confrontation Naming 03/02 (Not calculated) Mental Control 10/10 Clock Drawing 03/02 Incidental Recall 07/06 Inhibition 16 Verbal Production /6 Total Raw Score (Maximum=58) 55/58 Classification Level by Age and Education Average WMS-IV Adult Record Form ASSESSMENT: Assessment of cognitive function was conducted with administration of Brief Cognitive Status Exam yielding a total score of 55/58 correlating with 'Average' classification for age and educational status. Appropriate problem solving, provides alternate/multiple solutions without difficulty. Adequateabstract reasoning. Recall of recent/daily events is WFL. Per pt/family report, pt is functioning at baseline; family involved in care and able to provide assist as needed. No further ST services indicated at this time. PLAN: Discharge ST services Goals: The patient will participate in further cognitive-linguistic assessment to contribute to evidence-based treatment plan. (GOAL MET) Recommendations: -Regular/Thin -No further ST services indicated at this time Gabriella Bowles M.A., CCC-INSPECTOR SCREEN PRINTING Speech-Language Pathologist Office: [phone] [id number] History of Present illness Narrative* Millie Delacruz LSW - 01/04/2024 11:36 AM EST SW Coverage Note Per interdisciplinary team conference this AM, CLARISSA of 1-2 days with OP therapy recs. Team adjustingpt's insulin. Medical team to alert SW if there is a change in medical readiness for transfer/DC. SW will continue to follow. ABDELRAHMAN Schaffer, MLSP, HIDE MEASURING MACHINE OPERATOR PRN Bodily Injury Adjuster - Care Coordination Department * Jamal Ansari MD - 01/04/2024 7:28 AM EST Images from the original note were not included. GENERAL INFORMATION TRAUMA FLOOR - STAFF NOTE Patient seen and examined on 01/04/2024 Patient Name: Michelle Nash Admission Date: 01/03/2024 INTERVAL HISTORY/EVENTS Background: 83 F hx Dm2m no AC/AP who presents as transfer from [facility] s/p fall from standing. Was at [facility] lost balance 2/2 automatic doors. Possibly some component of hypoglycemia as she is on a new insulin regimen and Bgl at OSH was 56. GCS 15, no focal deficits. Transferred due to repeat imaging with 3mm SDH and trace SAH, requiring NSGY eval. Hospital Course: 01/03/2024: Admitted to SICU for q1h neuro checks, repeat CTH stable, transferred to [facility] 24-hour Events: Overnight Events: Hypertensive overnight to 180/83 with headache and nausea, hydralazine ordered with SBP response down to 158. Subjective Statement: This is my first time seeing the patient. Reports her headache has improved. Otherwise tolerating diet, passing gas. Mobilized with PT/OT yesterday and was cleared for dischargehome with neuro PT/OT. VITALS & INPUT/OUTPUT Vital Signs: Vital sign ranges over the past 24 hours (retrieved 01/04/2024 at 7:28 AM): Tmax (24 hours): 98.6 F (37 C) Pulse Av.2 Min: 61 Max: 78 Systolic (24hrs), Av , Min:117 , Max:180 Diastolic (24hrs), Av, Min:48, Max:85 MAP (mmHg) Av.3 mmHg Min: 68 mmHg Max: 106 mmHg Resp Av.6 Min: 18 Max: 26 SpO2 Av.2 % Min: 96 % Max: 100 % 24 Hour Input/Output In: 1157.5 (19 mL/kg) [P.O.:720; I.V.:437.5 (0.3 mL/kg/hr)] Out: 1020 (16.7 mL/kg) [Urine:1020 (0.7 mL/kg/hr)] Net: 137.5 Weight: 60.9 kg PHYSICAL EXAM Constitutional: No acute distress. Cardiovascular: Regular rate and rhythm Pulmonary/Chest: CTAB Abdominal: Soft. Non-distended. Non-tender. Musculoskeletal: No edema. Neurological: GCS 15 LABORATORY RESULTS (LAST 24 HOURS) CBC/PT/INR WBC RBC Hgb Hct MCV RDW Plt PT aPTT INR 01/04/246 7.2 3.71 11.9 36.1 97 14.0 262 Basic Metabolic Panel Na K Cl CO2 Gap Glu BUN Cr Ca Mg PO4 01/04/246 3.7 Comment: Note updated reference ranges. 01/04/246 1.9 Comment: Note updated reference ranges. 01/04/246 138 Comment: Note updated reference ranges. 3.9 Comment: Note updated reference ranges. Note updated reference ranges. 106 Comment: Note updated reference ranges. 22 Comment: Note updated reference ranges. 14 170 22 Comment: Note updated reference ranges. 0.79 Comment: Note updated reference ranges. 8.9 Comment: Note updated reference ranges. Arterial Blood Gases None IMAGING RESULTS (PERSONALLY REVIEWED) No new imaging obtained. ASSESSMENT & PLAN Michelle Nash is a 83 year old female with DM, HTN, HLD, ILD, GERD who presents as transfer from [facility] s/p fall from standing where she hit her head, found to have SDH and SAH as above, possibly in setting of hypoglycemia. Injuries: Right parafalcine subdural hematoma Subarachnoid hemorrhage (contre-coup injury) Incidental Findings: None Plan: Neurologic - Analgesia: Tylenol 650 q6h scheduled, tramadol 50mg q6h PRN NSG consulted for SDH, SAH, signed off: - Repeat CTH stable (01/03) - Keppra 750 mg BID x 7 days for seizure prophylaxis (ends 01/13) - Q4 neuro checks Restart home amitriptyline 10 mg at bedtime Respiratory - Respiratory Signal Operator Linguist Protocol Incentive Spirometer Continue home albuterol PRN Cardiovascular - Monitor Vitals Restart home propanolol 30 mg BID Holding home losartan 50mg daily while inpatient Continue home atorvastatin 10 mg at bedtime MAP goal < 120, SBP < 170 for SDH GI - Diet: Regular; DM [place] Bowel Regimen: Senna, Colace, Dulcolax Continue zofran for nausea PRN Continue home omeprazole Renal/ - Measure I&O Daily BMP, Mg, Phos. Replace as needed Endo - Diabetes mellitus type 2 - Humulin SSI, BGL control between 140-180 - Hold home lantus/lispro Endocrine consult placed for insulin regimen adjustment; recent changes to home insulin regimen possibly contributory to recent fall Heme - No indication for transfusion at this time. Daily CBC ID - No indication for antibiotics at this time. MSK - Progressive mobility protocol PT/OT - Recommending outpatient neuro PT/OT Wound Consult for moisture dermatitis - Recs pending Prophylaxis: VTE - SCDs. Hold LMWH given SDH, activity ad jag Dispo: pending pain control, PT/OT possible home today vs. tomorrow Follow up: - Neurosurgery clinic in 2 weeks (Dr. Olmedo) Verona Bean, PGY-1 Trauma Surgery Pager: [phone] Teaching Physician Note: I saw and evaluated the patient. I personally obtained the lane and critical portions of the historyand physical exam. I reviewed the resident's documentation and discussed the patient with the resident. I agree with the resident's medical decision making as documented in the resident's note. Doing well, complains of mild headache. Will consult Endocrine for outpatient management of insulinregimen. Patient sees an bar roller and had a recent change in her insulin regimen which may have led to her hypoglycemic event. PT/OT. Jamal Ansari MD Division of Trauma, Critical Care, [place], and Emergency General Surgery Department of Surgery [facility] Pager: [phone] * Sharmin Feliciano - 01/04/2024 5:07 AM EST [address] Ramsey Esquivel; She has BP 180/83. She's c/o headache. No other symptoms. I gave her some tylenol . Would you like any other intervention? My plan is recheck in 30 min after tylenol kicks in. 0508 New order for hydralazine. 0544 SBP 168 0605 Hydralazine received from pharmacy. Recheck BP at 0645 0643 Post-hydralazine, SBP [address] Esquivel: SBP 158. Still c/o headache and some nausea. No other neuro symptoms. Can she get anything stronger than tylenol? I gave some zofran 0720 PAGER ID: [phone] MESSAGE: 6E [id number] has post-hydralazine SBP 158. Still c/o headache and some nausea. No other neuro symptoms. Can she get anything stronger than tylenol? I gave zofran. Thanks Sharmin [phone] Bean responded and will look into the matter. Oncoming nurses aware. * Katherine Byrd MD - 01/03/2024 7:37 PM EST Division of Trauma, Surgical Critical Care, S Ticket to Roll Note The patient is transferring from SICU, room # 411, to Trauma [address], room # AC6. The patient was added to the Trauma Surgery list. Handoff to Ramsey Esquivel MD. Katherine Byrd MD RUP = Receiving unit provider RNF = Regular nursing floor * Opal Frias MD - 01/03/2024 7:15 AM EST Images from the original note were not included. DEPARTMENT OF SURGERY DIVISION OF TRAUMA, BURN, AND CRITICAL CARE SURGICAL INTENSIVE CARE UNIT (SICU) DAILY PROGRESS NOTE Patient: Michelle Nash, 83 year old, female : 1940 Admit Date: 01/03/2024 Room: [place] [address] Today's Date: 01/03/2024, Length of stay: 1 day(s) Code Status: Full Code Height: 5' 0 Weight: 60.9 kg BMI: 26.23 SURGICAL ICU - STAFF NOTE Patient seen and examined on 01/03/2024 Interval History/Events: Background: Michelle Nash is a 83 year old y/o female with PMH of HTN, HLD, T2DM, GERD, ILD no AC/AP who presents as transfer from [facility] s/p fall from standing. Was at pharmacy when lost balance 2/2 automatic doors. Possibly some component of hypoglycemia as she is on a new insulin regimen and Bgl at OSH was 56. GCS 15, no focal deficits. Transferred due to repeat imaging with 3mm SDH and trace SAH, requiring NSGY eval. Hospital Course: 01/03- admit 24 Hour Events: Neurosurgery c/s, q2h neuro checks, repeat imaging Vitals & I/Os: 24 Hour Vitals Range: Vital sign ranges over the past 24 hours (retrieved 01/03/2024 at 11:21 AM): Tmax (24 hours): 97.9 F (36.6 C) Pulse Av.4 Min: 70 Max: 78 Systolic (24hrs), Av , Min:127 , Max:152 Diastolic (24hrs), Av, Min:57, Max:85 MAP (mmHg) Av.4 mmHg Min: 74 mmHg Max: 100 mmHg Resp Av.2 Min: 13 Max: 26 SpO2 Av.4 % Min: 98 % Max: 100 % Vital Signs: Patient Vitals for the past 24 hrs: BP Temp Temp src Pulse Resp SpO2 O2 Device 01/03/24 1000 127/60 -- -- 70 26 99 % -- 01/03/24 0900 131/57 -- -- 73 21 98 % -- 01/03/24 0800 145/85 97.6 F (36.4 C) Oral 78 22 100 % Room air 01/03/24 0700 132/62 -- -- 73 22 98 % -- 01/03/24 0600 132/65 -- -- 76 13 100 % -- 01/03/24 0545 151/61 -- -- 71 20 100 % -- 01/03/24 0530 152/63 -- -- 73 15 100 % -- 01/03/24 0520 -- -- -- 75 14 100 % -- 01/03/24 0500 152/63 97.9 F (36.6 C) Oral 72 20 100 % Room air 24 Hour I&Os: In: 151.3 (2.5 mL/kg) [I.V.:151.3 (0.1 mL/kg/hr)] Out: 300 (4.9 mL/kg) [Urine:300 (0.2 mL/kg/hr)] Net: -148.8 Weight: 60.9 kg Physical Exam: General: Alert, sitting up in bed, conversational, no apparent distress. HEENT: PERRL, EOMI, no conjunctival injection or scleral icterus. Cardiac: Regular rate and rhythm Pulmonary: Clear to auscultation bilaterally. No wheezing, rhonchi, or rales. Abdomen: Soft, non-tender, non-distended. Extremities: Normal ROM, no peripheral edema. Neurological: AAOx4, motor and sensory grossly intact as tested.GCS 15 Lab Data: 8.7 \ 12.7 / 264 / 39.0 \ CBC: 01/03/2024: 5:33 AM 141 104 18 / \ 116 3.8 25 0.51 BMP: 01/03/2024: 6:16 AM BMP: Basic Metabolic Panel Na K Cl CO2 Gap Glu BUN Cr Ca 01/03/24 0616 141 Comment: Note updated reference ranges. 3.8 Comment: Note updated reference ranges. Note updated reference ranges. 104 Comment: Note updated reference ranges. 25 Comment: Note updated reference ranges. 16 116 18 Comment: Note updated reference ranges. 0.51 Comment: Note updated reference ranges. 9.5 Comment: Note updated reference ranges. CBC: CBC (last 3 years, up to 5 values) WBC RBC Hgb Hct MCV RDW Plt 01/03/24 0533 8.7 4.01 12.7 39.0 97 14.1 264 PT/PTT/INR: PT/PTT/INR (last 3 years, up to 5 values) PT aPTT INR 01/03/24 0533 33 01/03/24 0533 1.08 Type & Screen: Type & Screen None ABG: Arterial Blood Gases None BNP: No result for BNP Hepatic Panel: LFT's (last 3 years, up to 5 values) None Glucose: Fingerstick Glucose (last 72 hours) Glucose 01/03/24 0838 82 01/03/24 0504 103 A1c: No results found for: HBA1C TSH: No results found for: TSH Blood Culture: Blood Culture None Urine Culture: Urine Culture (last 1 year) None Respiratory Culture: Respiratory Culture, Misc None Wt Readings from Last 5 Encounters: 01/03/24 134 lb 4.8 oz (60.9 kg) Imaging Results (over previous 24 hours): CT HEAD W/O CONTRAST Result Date: 01/03/2024 EXAMINATION: CT HEAD W/O CONTRAST 01/03/2024 06:11 AM CLINICAL HISTORY: re-eval known SAH/SDH ASSOCIATED DIAGNOSIS: re-eval known SAH/SDH ORDERING PROVIDER: PRECIOUS [employer] TECHNOLOGISTS NOTE: COMPARISON: None TECHNIQUE: Thin axial imaging of the head was performed without intravenous contrast. FINDINGS: Acute intraparenchymal hematoma in the right inferior frontal gyrus measuring 1.8 x 0.9 cm. Smallamount of parafalcine hemorrhagic blood products. Trace subdural hemorrhage along the right and left frontal convexities. On the right side measures up to 4 mm. On the left side measures up to 3 mm. No midline shift. No The ventricles are within normal limits for age. The skull, paranasal sinuses an d tympanomastoid cavities are normal. IMPRESSION: Acute intraparenchymal hematoma in the right inferior frontal gyrus anteriorly measuring 1.8 x 0.9 cm. Small amount of parafalcine hemorrhagic blood products as well as trace subdural hemorrhage along the right and left frontal convexity's. No midline shift. MACRO: None Consults: IP SURGERY NEURO CONSULT Medications: Scheduled Medications: albuterol 2 Puff Q4H RT levETIRAcetam orderable 750 mg Every 12 hours insulin regular 2-12 Units Every 6 hours PRN Medications: acetaminophen 650 mg Q6H PRN dextrose iv for hypoglycemia orderable 125 mL PRN Or glucagon 1 mg PRN Or dextrose 15 g of glucose PRN Or dextrose 30 g of glucose PRN IV Medications: sodium chloride 75 mL/hr at 01/03/24 0619 Assessment and Plan: Diagnosis s/p mechanical ground level fall: - parafalcine SDH and IPH PMH: - HTN, HLD, T2DM, GERD, ILD Incidental Findings: - n/a Home meds Albuterol (Eqv-ProAir HFA) 90 mcg/inh inhalation aerosol atorvastatin 10 mg Tab HumaLOG KwikPen 100 units/mL injectable solution Jardiance 10 mg oral tablet Lantus Solostar Pen 100 units/mL subcutaneous solution losartan 50 mg Tab multivitamin omeprazole 20 mg Cap-DR propranolol 60 mg oral tablet Vitamin D 1000 intl units (25 mcg) Tab 75 mcg Zofran 4 mg Tab Alprazolam 0.25mg BID Fluticasone Tizanidine 4mg bedtime Trazodone 25mg bedtime Plan: Neurological: # acute intraparenchymal hematoma # L and R SDH Plan: - Acetaminophen 650 mg PO q6h PRN mild pain (1-3) - Keppra 500mg BID - NSGY consulted - no acute surgical intervention - will follow up outpatient in 2 weeks with outpatient repeat imaging Cardiovascular: # HTN/HLD Plan: - Map goal <120, SBP <170 - restart home atorvastatin and BP meds Respiratory: # ILD Plan: - Respiratory brake reliner protocol - home inhalers GI/Diet: Plan: - Diet: Regular; DM [place] - Zofran 4 mg IV q6h PRN nausea/vomiting - home omeprazole Renal/Electrolytes: Plan: - BMP/Mg/P daily - Replace electrolytes as indicated - Maintain Mg >2, K >4 - Measure strict I&O Infectious Disease: Plan: - Afebrile, no leukocytosis - No current indication for antibiotics - Monitor temperature and WBC for signs of infection Hematology: Plan: - CBC daily - No current indication for transfusion - Maintain hemoglobin >7 Endocrine: # IDDM Recent changes to home insulin regimen (20u lantus AM, with meal time lispro+ SSI Freestyle not working Plan: - POCT q6h with humulin sliding scale - Monitor blood glucose levels, adjust regimen above for BGL control between 140-180 - Hold home lantus/lispro Musculoskeletal: - PT/OT/INSPECTOR SCREEN PRINTING - Progressive mobility guidelines Tubes, Lines, and Drains: - PIV x2 Prophylaxis: - SCDs - Hold chemoprophylaxis Disposition: - transfer to floor Follow Up: - PCP: No primary care provider on file. Code Status: - Full Code I have reviewed the above listed plan with the surgery critical care attending and it is preliminary until finalized by them. Kindly await their final recommendations. Opal Frias MD Anesthesiology PGY-2 Pager: [phone] Associated attestation - Kalen Garrett MD - 01/03/2024 3:28 PM EST Images from the original note were not included. Teaching Physician Note: I saw and evaluated the patient. I personally obtained the lane and critical portions of the historyand physical exam. I reviewed the resident's/KAMLESH's documentation and discussed the patient with theresident/KAMLESH. I agree with the medical decision making as documented in the resident's/KAMLESH's note, with the following addenda/exceptions: NSGY signed off after stable CTH OK for Q4 neurochecks, transfer to floor PTOT Kalen Garrett MD Division of Trauma, Critical Care, [place], and Emergency General Surgery Department of Surgery [facility] [phone] documented in this [id number] Plan of care note* Care Plan Note - Kevin Ortega RN - 01/04/2024 10:40 AM EST Problem: Routine Care: Goal: Patient care will be managed and maintained throughout hospital stay per unit specific routine care procedure Outcome: Progressing Problem: Impaired Mobility: Goal: Ability to maintain or regain baseline function will be acheived Outcome: Progressing Goal: Will be free of DVT Outcome: Progressing Problem: VTE Prophylaxis: Goal: Will be free of DVT Outcome: Progressing Problem: Fluid and Electrolyte Imbalance: Goal: Adequate fluid and electrolyte balance will be achieved and maintained Outcome: Progressing Problem: Altered Neurological Status: Goal: Optimal neurological status will be maintained or regained Outcome: Progressing Goal: Altered Level of Consciousness will improve Outcome: Progressing Problem: Acute Pain: Goal: Ability to identify pain intensity on a pain scale and rate it consistently will be achieved and maintained Outcome: Progressing Goal: Acceptable level of pain which allows the patient to achieve functional outcome goals Outcome: Progressing Problem: Safety: Goal: Patient will remain free of falls during hospital stay Outcome: Progressing Goal: Free from injury during hospitalization Outcome: Progressing Problem: Discharge Planning: Goal: Discharge needs of the adult patient will be met Outcome: Progressing Problem: Glucose Imbalance: Goal: Ability to maintain appropriate glucose levels will be achieved and maintained Outcome: Progressing [id number] NoteOCCUPATIONAL THERAPY INITIAL EVALUATION Patient seen from 1340 to 1420 on 5 [place] unit for 40 minutes. Co-evaluation with PT for safe handling of ICU lines/monitors and to advance mobility of medically complex patient. Evaluation and treatment Reason for Admit: 83 y/o F adm s/p falls , + head strike. Patient hypoglycemic at OSH Diagnosis: SDH, SAH Precautions/Activity Order: fall, full code, progressive mobility, seizure Procedures this admit: none Past Medical and Surgical History: SUBJECTIVE: Patient Subjective: I'm picky about washing. Re: patient's response when asked if her family could help with laundry so she wouldn't have to walk down to basement Patient Identified Goal(s): go home Home Living Situation- lives at home with her , patient assists with ADLs Prior Functional Status: Independent Living, ambulates without device, drives (until 1 week ago, patient states her made her stop d/t falls) Assistance Available at Home: daughter assists with IADL PRN Patient lives in a 1 story home 1 stairs to enter. +basement laundry Full Bathroom on 1 level Bedroom on 1 level. Equipment available at home: cane, walker *patient is inconsistent historian re: # of falls /fall circumstances, patient also reports recent outpatient therapy for sugars but unable to provide details OBJECTIVE: Patient Identification: patient verbalizing his/her name and date of . Risks and benefits of occupational therapy: Patient informed of risks and benefits of treatment Appearance: IV, tele, BP cuff, pulse ox, external catheter Alertness: WFL Affect: flat Cooperation/Behavior: Appropriate dialogue with therapist, cooperative Communication: WFL Pain: Pain ratin/10, Location: headache Pain Relief Interventions Implemented: RN aware and reports patient received medication according to time schedule Self Care: Assistance Level Dep Max Mod Min CG CS DS MA I Set-Up Comment Feeding x Eating lunch beginning of session Grooming/Hygiene x Standing at sink to wash hands Bathing:UB x Anticipated Bathing:LB x Anticipated Dressing:UB x Don gown as robe standing at EOB Dressing: LB x Don socks seated EOB Toileting x At toilet Transfers/Bed Mobility: Assistance Level Dep Max Mod Min CG CS DS MA I Set-Up Comment Toilet Transfers x Use of grab bars Bed Transfers x Sit/stand from EOB Stand/sit in chair Bed Mobility x Supine to sit EOB Ambulation x Within room, bathroom, hallway Patient remained seated in bedside chair end of session with chair alarm in place d/t falls risk. Call mariscal and telephone within reach. Patient instructed to call for staff assist when ready to return to bed and for all mobility. RN aware of patient location and mobility status. Endurance for Self Care: Fair, standing rest breaks needed Static Sitting Balance: Good Dynamic Sitting Balance: Fair UE Motor: BUE AROM is WFL L UE strength 3-/5 R UE strength 4+/5 Vision/Perception: WFL Cognition: Orientation: Oriented to person, place, and time Follows Commands: one step commands Attention: WNL Memory: inconsistent report of recent history including 5+ falls Problem Solving: Impaired Safety/Judgement: Impaired Sequencing: WFL Other Specialized Tests: None Patient/Family Education: Instructed patient in roles of therapy, safety , discharge recommendations 01/03/2024 6 Clicks Daily Activity OT Help from another person Eating meals 3 Help from another person taking care of personal grooming 3 Help from another person bathing 3 Help from another person putting on and taking off regular upper body clothing 3 Help from another person putting on and taking off regular lower body clothing 3 Help from another person toileting 3 OT 6 Clicks Score 18 6 Click Score Guidelines: 1 - Unable = Total/Dependent Assist 2 - A lot = Max/Moderate Assist 3 - A little = Minimum/Contact Guard Assist/Supervision 4 - Non = Modified [place]/Independent ASSESSMENT: Anticipate patient will be functionally appropriate for discharge home once medically cleared. Recommend increased family/caregiver assist for ADL, IADL, transportation. Recommend outpatient neuro OT. Recommend Speech Therapy cognitive evaluation. Rehabilitation Potential: Good Problem List: decreased ADLs, decreased endurance, decreased functional transfers/mobility, and impaired balance Goals (to be achieved by discharge from acute care): Patient will dress upper body with Modified Independent Patient will dress lower body with Modified Independent Patient will perform bed mobility with Modified Independent Patient will perform toileting with Modified Independent Patient will perform bed transfers with Modified Independent Patient will perform commode transfers with Modified Independent Patient will increase endurance sufficient to perform 10 min ADL with rest breaks PRN PLAN: Michelle Delgado (more content not included)...[employer] [id number] Note PHYSICAL THERAPY ACUTE EVALUATION Referral received, chart reviewed. Patient seen from 13:40 to 14:20 on 5W unit for 40 minutes. Eval + treat. Co-eval with OT. Patient required the skills of two therapists for safe mobility and high medical complexity of the patient. Admit date/time: 01/03/2024 5:18 AM Reason for Admit: s/p fall from standing Diagnosis: SDH SAH Precautions: Falls Full Code Seizure Progressive mobility Procedures this admit: N/a Past Medical and Surgical History: No past medical history on file. No past surgical history on file. Identification was verified by patient verbalizing his/her name and date of . and patient's id band and date of . 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 0 steps to bedroom/bathroom rails. 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 Equipment available: cane, rolling walker, bedside commode, and tub bench OBJECTIVE: Appearance: Impaired, overlay plastician, Pulse Oximeter, and IV Behavior: WFL Oriented x 3 Follows 1 step commands consistently and with cues Pain: Site/Location: 0; Pain Scale: 0/10 Pain Relief Interventions Implemented: n/a Passive ROM: WFL Strength/Active ROM: WFL B UE and B LE: 5/5 strength B LE coordination: mildly impaired B UE coordination: mildly impaired, see OT suri B LE sensation intact Educated patient about 2 feet on the ground rule after a TBI. Mobility: Rolling to right: contact guard Sidelying to sit: contact guard Sitting balance: Good Sit to stand: contact guard Transfers: contact guard, VC for sequencing Ambulation/Gait: Patient walked 150 ft without device, slow pace, decreased B LE step lengths, smooth sushila Stairs: up and down 4 steps with 1 rail CGA Endurance: Impaired Patient/Family Education: Instructed patient in roles of therapy. Instructed Patient in roles, goals, treatment plan: demonstrated good verbal understanding. Instructed patient in Exercise Program for Ankle pumps x10 reps Patient up in chair with call light in reach. Chair alarm intact. DME: With Patients permission ordered no equipment via [email or web address] Order. If any questions contact [facility] DME Provider at [phone]. 01/03/2024 6 Clicks Basic Mobility PT Difficulty turning over in bed 3 Difficulty sitting down and standing up from a chair with arms 3 Difficulty moving from lying on back to sitting on the side of the bed 3 Help from another person moving to and from bed to a chair 3 Help from another person to walk in hospital room 3 Help from another person climbing 3-5 steps with a railing 3 PT 6 Clicks Score 18 6 Click Score Guidelines: 1 - Total = Requires total assistance, or cannot do at all. 2 - A lot = Requires a lot of help (maximun to moderate assistance) Can use assistive devices. 3 - A little = Requires a little help (supervision, minimal assistance) Can use assistive devices. 4 - None = Does not require any help and does the activity independently. Can use assistive devices. ASSESSMENT: Michelle Nash is a 83 year old female s/p fall with SDH, SAH presents with decreased coordination and endurance, causing patient difficulty with ambulation quality/tolerance. Patient is functionally appropriate for discharge home with family supervision once medically cleared. Will continue to follow patient while in hospital as appropriate. Recommend outpatient neuro Physical Therapy for balance. Problems: Decreased ROM/strength Decreased functional mobility Decreased endurance Decreased balance Decreased education in exercise/precautions Rehabilitation Potential: Good Goals (to be achieved by 10 days or by discharge from acute care): Patient will achieve acceptable level of pain control to allow participation in therapy. Patient will increase bed mobility to modified independent Patient will perform sit to/from stand with none with modified independent Patient will ambulate 150 feet with none with modified independent Patient will ascend/descend 4 stairs with 1 rail(s) and none with modified independent Patient will increase ROM/Strength/Endurance/Balance to allow for above goals. Patient/Family independent with exercise program/precautions. PLAN OF CARE: Frequency: Patient to be seen 3-5 times a week Interventions: Functional mobility ROM/Strengthening Home exercise program Discharge planning and equipment ordering as needed Patient /Family education The evaluation findings and treatment plan were discussed with the patient/family. The patient/family indicated understanding and agreement with the plan. Nigel Joe, (more content not included)...[employer] [id number] NoteSPEECH-LANGUAGE PATHOLOGY ACUTE EVAL Referral received, chart reviewed and history is noted. Time In: 1312 Time Out: 1332 Session Duration: 20minutes Patient was identified by patient/armband stating name and date of . Date of Onset: 01/03/2024 History/Diagnosis: Referral received for SAH/SDH. PMH HTN, HLD, ILD, T2DM, GERD, anxiety presenting to [place] ED after fall from standing. Was at pharmacy where she hit head onto exit door, fell backward and hit head on floor. CTH at [place] demonstrated parafalcine SDH and SAH vs IPH on the anterior inferior frontal lobe. Precautions: fall, seizure, full code Imaging: CT Head w/o Contrast 01/03/2024: IMPRESSION: Expected evolution of intracranial hemorrhages. Acute right frontal parenchymal hematoma measuring 1.8 x 0.9 cm. Subcentimeter parafalcine and bilateral cerebral convexity subdural hematomas. No herniation or midline shift. Prior Level of Functioning: Lives at home with , caregiving for . SUBJECTIVE: Patient subjective/goals: I think I am doing pretty good. Pain: yes Scale (if yes): Location: ankle OBJECTIVE: Auditory Comprehension: -1 step commands: Intact -2 step commands: Intact -Bob White/biographical y/n questions: Intact -Abstract y/n questions: Intact -Open ended questions: Intact Verbal Expression: -Verbal output is fluent. -Confrontational Naming: Intact in 3/3 -Responsive Naming: Intact in 3/3 -Automatic speech tasks are intact in 2/2. Cognition: Orientation: PERSON: +name; + PLACE: +hospital name; +city TIME: +year; +JOHN; +DOM; +TOD Memory: Patient recalled recent events leading to hospitalization. Attention: Sustained/selective attention is intact. Adequate working memory for basic tasks (serial reversal of 1-20). Intact for mod level working memory tasks (serial reversal for months of the year.) Pragmatic Behavior: Pleasant, cooperative Speech: Speech Production: Patient is judged to be 100% intelligible at the conversational level. Speech production is precise. Fluency, prosody, and resonance are unremarkable. Phonation: low intensity, mild hoarseness Respiratory: Oxygen Requirements: room air SPO2: 97% per flowsheets Swallowing -Patient is currently on Regular/Thin DM liberal diet -Oral mucosa is pink and moist -Patient/family recall MBS study at [facility] over the summer 2022, but regular/thin diet was recommended per patient. [place] Swallow Protocol: State: alert; maintained across session Brief Cognitive Screen: What is your Name?: + Where are you right now?: + What year is it?: + Oral Mechanism Assessment: Tongue ROM: + Facial Symmetry: + Smile: + Pucker: + Lip Closure (cheek puff and hold): + 3-ounce water swallow challenge: Positioning: upright Mode of administration: cup, per patient preference Consecutive drinking of 3oz Thin water: yes; uninterrupted Cough/Throat Clear: none X PASS: Complete and uninterrupted drinking of all 3 ounces (90cc) of water without overt signs of aspiration (I.e. coughing or choking, either during or immediate after completion) *The [place] Swallow Protocol (YSP) is a standardized measure with high sensitivity(96.5%) and negative prediction value (97.9%). Other Consistencies Presented: Regular Solids Oral Phase: WFL bilabial seal w/o anterior spillage Mastication appears adequate for bolus breakdown No obvious oral residuals Pharyngeal Phase: No symptoms of airway invasion with all PO trials. Factors contributing to aspiration related pulmonary complications: Given pulmonary clearance, immune response, and bacteriological contents patient risk for aspiration related pulmonary complication is currently perceived to be LOW. Positive Impact Negative impact Pulmonary Clearance Medical Conditions (COPD, CHF, asthma) X Reduced function (reduced mobility/increased dependence for care) X Pulmonary health (h/o smoking, need for supplemental O2, need for inhaled medications) X Immune Response Nutritional Status X Medical co-morbidities X Presence of current infectious process X Bacteriological Contents Dependencies for oral care X Dental care/repair X Oral hygiene X Xerostomia X Diabetes X Acid Suppression therapy (PPI, H2 Blockers) X ASSESSMENT: Diagnosis: ? at baseline Impression: Michelle Nash is a 83 year old adult who was seen for initial speech and swallow evaluation this date. Based on informal assessment, clinical observation, and patient/family report, patient appears to be functioning at baseline in regard to speech, language and swallowing at this time. Complete cognitive-linguistic evaluation deferred today given patient's lunch tray arriving. Recommend follow up for further cognitive-linguistic evaluation as appropriate at a later date to rule out change from baseline s/p SDH. Educated patient and family on plan. PLAN: Treatment Modalities: cognitive-linguistic (more content not included)...[facility] [id number] Consult note* Tita Duong, OT - 01/03/2024 2:25 PM ESTAssociated Order(s): IP OCCUPATIONAL THERAPY SERVICE REQUEST OCCUPATIONAL THERAPY INITIAL EVALUATION Patient seen from 1340 to 1420 on [facility] 5 West unit for 40 minutes. Co-evaluation with PT for safe handling of ICU lines/monitors and to advance mobility of medically complex patient. Evaluation and treatment Reason for Admit: 83 y/o F adm s/p falls , + head strike. Patient hypoglycemic at OSH Diagnosis: SDH, SAH Precautions/Activity Order: fall, full code, progressive mobility, seizure Procedures this admit: none Past Medical and Surgical History: SUBJECTIVE: Patient Subjective: I'm picky about washing. Re: patient's response when asked if her family could help with laundry so she wouldn't have to walk down to basement Patient Identified Goal(s): go home Home Living Situation- lives at home with her , patient assists with ADLs Prior Functional Status: Independent Living, ambulates without device, drives (until 1 week ago, patient states her made her stop d/t falls) Assistance Available at Home: daughter assists with IADL PRN Patient lives in a 1 story home 1 stairs to enter. +basement laundry Full Bathroom on 1 level Bedroom on 1 level. Equipment available at home: cane, walker *patient is inconsistent historian re: # of falls /fall circumstances, patient also reports recent outpatient therapy for sugars but unable to provide details OBJECTIVE: Patient Identification: patient verbalizing his/her name and date of . Risks and benefits of occupational therapy: Patient informed of risks and benefits of treatment Appearance: IV, tele, BP cuff, pulse ox, external catheter Alertness: WFL Affect: flat Cooperation/Behavior: Appropriate dialogue with therapist, cooperative Communication: WFL Pain: Pain ratin/10, Location: headache Pain Relief Interventions Implemented: RN aware and reports patient received medication according to time schedule Self Care: Assistance Level Dep Max Mod Min CG CS DS MA I Set-Up Comment Feeding x Eating lunch beginning of session Grooming/Hygiene x Standing at sink to wash hands Bathing:UB x Anticipated Bathing:LB x Anticipated Dressing:UB x Don gown as robe standing at EOB Dressing: LB x Don socks seated EOB Toileting x At toilet Transfers/Bed Mobility: Assistance Level Dep Max Mod Min CG CS DS MA I Set-Up Comment Toilet Transfers x Use of grab bars Bed Transfers x Sit/stand from EOB Stand/sit in chair Bed Mobility x Supine to sit EOB Ambulation x Within room, bathroom, hallway Patient remained seated in bedside chair end of session with chair alarm in place d/t falls risk. Call mariscal and telephone within reach. Patient instructed to call for staff assist when ready to return to bed and for all mobility. RN aware of patient location and mobility status. Endurance for Self Care: Fair, standing rest breaks needed Static Sitting Balance: Good Dynamic Sitting Balance: Fair UE Motor: BUE AROM is WFL L UE strength 3-/5 R UE strength 4+/5 Vision/Perception: WFL Cognition: Orientation: Oriented to person, place, and time Follows Commands: one step commands Attention: WNL Memory: inconsistent report of recent history including 5+ falls Problem Solving: Impaired Safety/Judgement: Impaired Sequencing: WFL Other Specialized Tests: None Patient/Family Education: Instructed patient in roles of therapy, safety , discharge recommendations 01/03/2024 6 Clicks Daily Activity OT Help from another person Eating meals 3 Help from another person taking care of personal grooming 3 Help from another person bathing 3 Help from another person putting on and taking off regular upper body clothing 3 Help from another person putting on and taking off regular lower body clothing 3 Help from another person toileting 3 OT 6 Clicks Score 18 6 Click Score Guidelines: 1 - Unable = Total/Dependent Assist 2 - A lot = Max/Moderate Assist 3 - A little = Minimum/Contact Guard Assist/Supervision 4 - Non = Modified [place]/Independent ASSESSMENT: Anticipate patient will be functionally appropriate for discharge home once medically cleared. Recommend increased family/caregiver assist for ADL, IADL, transportation. Recommend outpatient neuro OT. Recommend Speech Therapy cognitive evaluation. Rehabilitation Potential: Good Problem List: decreased ADLs, decreased endurance, decreased functional transfers/mobility, and impaired balance Goals (to be achieved by discharge from acute care): Patient will dress upper body with Modified Independent Patient will dress lower body with Modified Independent Patient will perform bed mobility with Modified Independent Patient will perform toileting with Modified Independent Patient will perform bed transfers with Modified Independent Patient will perform commode transfers with Modified Independent Patient will increase endurance sufficient to perform 10 min ADL with rest breaks PRN PLAN: Michelle Nash will be seen 1-3 times a week. Treatment to include: functional mobility training and ADL retraining able to discuss the evaluation findings and treatment plan with the patient/family. The patient/family did participate in the development of plan and goals. Tita CRISTOBAL, OTR/L Pager: [phone] Secure chat preferred (7:30AM-4PM) NA = Not Assessed, I = Independent, MA = Modified Independent, Sup = Supervised, Set up = Physical Assistance for Set-up Only, Min = Minimal Assistance, Mod = Moderate Assistance, Max = Max assistance; Dep = Dependent; AROM = Active Range of Motion;PROM=Passive Rangeof Motion; MMT = Manual Muscle Test; UB = Upper Body; LB = Lower Body [employer] Work Phone: [phone] 252-530402-05-2024 Consult note* Nigel Joe, PT - 01/03/2024 1:47 PM ESTAssociated Order(s): IP PHYSICAL THERAPY SERVICE REQUEST PHYSICAL THERAPY ACUTE EVALUATION Referral received, chart reviewed. Patient seen from 13:40 to 14:20 on 5W unit for 40 minutes. Eval + treat. Co- eval with OT. Patient required the skills of two therapists for safe mobility and high medical complexity of the patient. Admit date/time: 01/03/2024 5:18 AM Reason for Admit: s/p fall from standing Diagnosis: SDH SAH Precautions: Falls Full Code Seizure Progressive mobility Procedures this admit: N/a Past Medical and Surgical History: No past medical history on file. No past surgical history on file. Identification was verified by patient verbalizing his/her name and date of . and patient's idband and date of . 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 0 steps to bedroom/bathroom rails. 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 Equipment available: cane, rolling walker, bedside commode, and tub bench OBJECTIVE: Appearance: Impaired, overlay plastician, Pulse Oximeter, and IV Behavior: WFL Oriented x 3 Follows 1 step commands consistently and with cues Pain: Site/Location: 0; Pain Scale: 0/10 Pain Relief Interventions Implemented: n/a Passive ROM: WFL Strength/Active ROM: WFL B UE and B LE: 5/5 strength B LE coordination: mildly impaired B UE coordination: mildly impaired, see OT eval B LE sensation intact Educated patient about 2 feet on the ground rule after a TBI. Mobility: Rolling to right: contact guard Sidelying to sit: contact guard Sitting balance: Good Sit to stand: contact guard Transfers: contact guard, VC for sequencing Ambulation/Gait: Patient walked 150 ft without device, slow pace, decreased B LE step lengths, smooth sushila Stairs: up and down 4 steps with 1 rail CGA Endurance: Impaired Patient/Family Education: Instructed patient in roles of therapy. Instructed Patient in roles, goals, treatment plan: demonstrated good verbal understanding. Instructed patient in Exercise Program for Ankle pumps x10 reps Patient up in chair with call light in reach. Chair alarm intact. DME: With Patients permission ordered no equipment via [employer] Order. If any questions contact [facility] DME Provider at [phone]. 01/03/2024 6 Clicks Basic Mobility PT Difficulty turning over in bed 3 Difficulty sitting down and standing up from a chair with arms 3 Difficulty moving from lying on back to sitting on the side of the bed 3 Help from another person moving to and from bed to a chair 3 Help from another person to walk in hospital room 3 Help from another person climbing 3-5 steps with a railing 3 PT 6 Clicks Score 18 6 Click Score Guidelines: 1 - Total = Requires total assistance, or cannot do at all. 2 - A lot = Requires a lot of help (maximun to moderate assistance) Can use assistive devices. 3 - A little = Requires a little help (supervision, minimal assistance) Can use assistive devices. 4 - None = Does not require any help and does the activity independently. Can use assistive devices. ASSESSMENT: Michelle Nash is a 83 year old female s/p fall with SDH, SAH presents with decreased coordination and endurance, causing patient difficulty with ambulation quality/tolerance. Patient is functionally appropriate for discharge home with family supervision once medically cleared. Will continue to follow patient while in hospital as appropriate. Recommend outpatient neuro Physical Therapy for balance. Problems: Decreased ROM/strength Decreased functional mobility Decreased endurance Decreased balance Decreased education in exercise/precautions Rehabilitation Potential: Good Goals (to be achieved by 10 days or by discharge from acute care): Patient will achieve acceptable level of pain control to allow participation in therapy. Patient will increase bed mobility to modified independent Patient will perform sit to/from stand with none with modified independent Patient will ambulate 150 feet with none with modified independent Patient will ascend/descend 4 stairs with 1 rail(s) and none with modified independent Patient will increase ROM/Strength/Endurance/Balance to allow for above goals. Patient/Family independent with exercise program/precautions. PLAN OF CARE: Frequency: Patient to be seen 3-5 times a week Interventions: Functional mobility ROM/Strengthening Home exercise program Discharge planning and equipment ordering as needed Patient /Family education The evaluation findings and treatment plan were discussed with the patient/family. The patient/family indicated understanding and agreement with the plan. Nigel Joe, PT, DPT #[id number] NA = Not Assessed, I = Independent, MA = Modified Independent, Sup = Supervised, Set up = Physical Assistance for Set-up Only, Min = Minimal Assistance, Mod = Moderate Assistance, Max = Max assistance; Dep = Dependent; AROM = Active Range of Motion; PROM = Passive Range of Motion; MMT = Manual Muscle Test; LE = Lower Extremity [employer] Work Phone: [phone] Consult note* Patria Maldonado CCC-INSPECTOR SCREEN [employer]INTING - 01/03/2024 1:01 PM ESTAssociated Order(s): IP INS[employer]OR SCREEN [employer]ING SERVICE REQUEST SPEECH-LANGUAGE PATHOLOGY ACUTE EVAL Referral received, chart reviewed and history is noted. Time In: 1312 Time Out: 1332 Session Duration: 20minutes Patient was identified by patient/armband stating name and date of . Date of Onset: 01/03/2024 History/Diagnosis: Referral received for SAH/SDH. PMH HTN, HLD, ILD, T2DM, GERD, anxiety presentingto [place] ED after fall from standing. Was at pharmacy where she hit head onto exit door, fell backwardand hit head on floor. CTH at [place] demonstrated parafalcine SDH and SAH vs IPH on the anterior inferior frontal lobe. Precautions: fall, seizure, full code Imaging: CT Head w/o Contrast 01/03/2024: IMPRESSION: Expected evolution of intracranial hemorrhages. Acute right frontal parenchymal hematoma measuring 1.8 x 0.9 cm. Subcentimeter parafalcine and bilateral cerebral convexity subdural hematomas. No herniation or midline shift. Prior Level of Functioning: Lives at home with , caregiving for . SUBJECTIVE: Patient subjective/goals: I think I am doing pretty good. Pain: yes Scale (if yes): Location: ankle OBJECTIVE: Auditory Comprehension: -1 step commands: Intact -2 step commands: Intact -Bob White/biographical y/n questions: Intact -Abstract y/n questions: Intact -Open ended questions: Intact Verbal Expression: -Verbal output is fluent. -Confrontational Naming: Intact in 3/3 -Responsive Naming: Intact in 3/3 -Automatic speech tasks are intact in 2/2. Cognition: Orientation: PERSON: +name; + PLACE: +hospital name; +city TIME: +year; +JOHN; +DOM; +TOD Memory: Patient recalled recent events leading to hospitalization. Attention: Sustained/selective attention is intact. Adequate working memory for basic tasks (serialreversal of 1-20). Intact for mod level working memory tasks (serial reversal for months of the year.) Pragmatic Behavior: Pleasant, cooperative Speech: Speech Production: Patient is judged to be 100% intelligible at the conversational level. Speech production is precise. Fluency, prosody, and resonance are unremarkable. Phonation: low intensity, mild hoarseness Respiratory: Oxygen Requirements: room air SPO2: 97% per flowsheets Swallowing -Patient is currently on Regular/Thin DM liberal diet -Oral mucosa is pink and moist -Patient/family recall MBS study at [facility] over the summer 2022, but regular/thin diet was recommended per patient. [place] Swallow Protocol: State: alert; maintained across session Brief Cognitive Screen: What is your Name?: + Where are you right now?: + What year is it?: + Oral Mechanism Assessment: Tongue ROM: + Facial Symmetry: + Smile: + Pucker: + Lip Closure (cheek puff and hold): + 3-ounce water swallow challenge: Positioning: upright Mode of administration: cup, per patient preference Consecutive drinking of 3oz Thin water: yes; uninterrupted Cough/Throat Clear: none X PASS: Complete and uninterrupted drinking of all 3 ounces (90cc) of water without overt signs of aspiration (I.e. coughing or choking, either during or immediate after completion) *The [place] Swallow Protocol (YSP) is a standardized measure with high sensitivity(96.5%) and negative prediction value (97.9%). Other Consistencies Presented: Regular Solids Oral Phase: WFL bilabial seal w/o anterior spillage Mastication appears adequate for bolus breakdown No obvious oral residuals Pharyngeal Phase: No symptoms of airway invasion with all PO trials. Factors contributing to aspiration related pulmonary complications: Given pulmonary clearance, immune response, and bacteriological contents patient risk for aspiration related pulmonary complication is currently perceived to be LOW. Positive Impact Negative impact Pulmonary Clearance Medical Conditions (COPD, CHF, asthma) X Reduced function (reduced mobility/increased dependence for care) X Pulmonary health (h/o smoking, need for supplemental O2, need for inhaled medications) X Immune Response Nutritional Status X Medical co-morbidities X Presence of current infectious process X Bacteriological Contents Dependencies for oral care X Dental care/repair X Oral hygiene X Xerostomia X Diabetes X Acid Suppression therapy (PPI, H2 Blockers) X ASSESSMENT: Diagnosis: ? at baseline Impression: Michelle Nash is a 83 year old adult who was seen for initial speech and swallow evaluation this date. Based on informal assessment, clinical observation, and patient/family report, patient appears to be functioning at baseline in regard to speech, language and swallowing at this time. Complete cognitive-linguistic evaluation deferred today given patient's lunch tray arriving. Recommend follow up for further cognitive-linguistic evaluation as appropriate at a later date to rule out change from baseline s/p SDH. Educated patient and family on plan. PLAN: Treatment Modalities: cognitive-linguistic evaluation Frequency: pending evaluation results Goals: The patient will participate in further cognitive-linguistic assessment to contribute to evidence-based treatment plan. Prognosis: Good given + support, + PLOF, - age Recommendations: Diet: Continue Regular Solids and Thin Liquids Speech Therapy while in house Patria Maldonado M.S., CCC-INSPECTOR SCREEN PRINTING Speech Language Pathologist Office: [phone] [id number] NoteNeurosurgery Treatment Plan Note rCTH imaging reviewed and discussed with attending, Dr. Kelly. Lopez. Plan - Imaging reviewed - Please have patient follow-up in NSGY clinic in 2 weeks with rCTH without contrast just prior to appointment - Neurosurgery to sign off at this time. Please call anytime with questions or concerns. Nely Franklin PA-C Neurosurgery Service Pager: [phone] 01/03/2024 - 9:28 [facility] Plan of care [facility]* Treatment Plan Note - Nely Franklin PA-C - 01/03/2024 9:28 AM EST Neurosurgery Treatment Plan Note rCTH imaging reviewed and discussed with attending, Dr. Kelly. Lopez. Plan - Imaging reviewed - Please have patient follow-up in NSGY clinic in 2 weeks with rCTH without contrast just prior to appointment - Neurosurgery to sign off at this time. Please call anytime with questions or concerns. Nely Franklin PA-C Neurosurgery Service Pager: [phone] 01/03/2024 - 9:28 AM [employer] Work Phone: [phone] 272-882002-05-2024 Consult note* Gray Olmedo MD - 01/03/2024 5:50 AM ESTAssociated Order(s): IP SURGERY NEURO CONSULT NEUROSURGERY CRANIAL TRAUMA H&P Patient Name: Michelle Nash Primary Care Physician: No primary care provider on file. CONSULTED BY: Trauma CONSULTED FOR: SAH/SDH/IPH CHIEF COMPLAINT: I fell HPI: 83yo F w/ PMH HTN, HLD, ILD, T2DM, GERD, anxiety presenting to [place] ED after fall from standing. Was at pharmacy where she hit head onto exit door, fell backward and hit head on floor. CTH at [place] demonstrated parafalcine SDH and SAH vs IPH on the anterior inferior frontal lobe. Neurosurgery consulted for evaluation. Patient endorses story as above. Denies nausea, vomiting, blurry vision, dizziness, history of falls, bowel/bladder incontinence. Additional injuries include: None Antiplatelet/Anticoagulant: None Coags: Pending Sodium: Pending Previous TBI:No PAST MEDICAL HISTORY: No past medical history on file. PAST SURGICAL HISTORY: No past surgical history on file. FAMILY HISTORY: No family history on file. SOCIAL HISTORY: Social History Occupational History Not on file Tobacco Use Smoking status: Not on file Smokeless tobacco: Not on file Substance and Sexual Activity Alcohol use: Not on file Drug use: Not on file Sexual activity: Not on file MEDICATIONS: levETIRAcetam orderable 500 mg Every 12 hours insulin regular 2-12 Units Every 6 hours sodium chloride dextrose iv for hypoglycemia orderable 125 mL PRN Or glucagon 1 mg PRN Or dextrose 15 g of glucose PRN Or dextrose 30 g of glucose PRN ALLERGIES: Not on File COMPLETE REVIEW OF SYSTEMS: ROS 11/09 systems negative other than above LABS: Basic Metabolic Panel None PHYSICAL EXAM: Awake, Alert, Ox3 Following Commands Speech intact PERRL, EOMI FS, TM BUE 5/5, no drift BLE 5/5 Sensation intact to light touch throughout PHYSICAL EXAMINATION: Vital signs reviewed General appearance: normal appearing Skin: warm, dry Head: Normocephalic Nose/Sinuses: Nares normal. Neck: supple, trachea midline Lungs: chest symmetric, normal respiratory rate and rhythm Heart: NSR on tele monitor Abdomen: soft, nontender Extremities: Extremities normal. No deformities or edema Neuro: above RADIOLOGY: CTH: (Per [place] report): Focal SAH vs contra-coup IPH in inferior frontal lobe. Parafalcine SDH. [place] CT SCORE: 1. Basal cisterns: 0: Normal 2. Midline shift: 0: Less than or equal to 5 mm 3. Epidural mass lesion: 1: Absent 4. Intraventricular blood or traumatic SAH: 0: Absent Total Score: 2 (Calculated sum + 1) Six Month Mortality: Score 1: 0% Score 2: 7% Score 3: 16% Score 4: 26% Score 5: 53% Score 6: 61% 1. TBI sub-type: SAH, SDH: Less than 1 cm, and Contusion/ICH (Any Dimension): Less than 1 cm 2. Laterality: Right 3. Location: Frontal, Parafalcine/Tentorial 4. Pupillary response: Both reactive 5. Associated conditions: None 6. Loss of consciousness: None ASSESSMENT/PLAN: 83yo F w/ PMH HTN, HLD, ILD, T2DM, GERD, anxiety presenting to [place] after fall from standing. Was at pharmacy where she hit head onto exit door, fell backward and hit head on floor. CTH at [place] demonstrated parafalcine SDH and SAH vs IPH on the anterior inferior frontal lobe. Will plan to monitor with interval imaging. -ICU admission under trauma service -Q2 neuro checks -Repeat CT head 6 hours after initial imaging (~0700) -Keppra 750 mg BID x 7 days for seizure prophylaxis -SBP <170 per trauma guidelines -NPO -Ensure pre op labs complete (CBC, BMP, Type and Screen, PT/INR, PTT) -Hold all antiplatelets/anticoagulants -Plts >100, INR <1.4 -Normonatremia , normothermia (<38.0 C) , euvolemia -SCDs only at this time for DVT prophylaxis. Hold SQH at this time -No acute neurosurgical intervention. Will continue to follow Patient seen within 30 minutes of initial consultation. Recommendations provided directly to the trauma service. Above plan was discussed with the chief resident within 30 minutes of consult and discussed with the staff Dr. Olmedo who agrees with the above management. Please call anytime with questions or concerns. Kevin Coombs MD Neurosurgery, Resident Pager: [phone] 01/03/2024 - 5:50 AM Please page the on-call pager after 6pm and on weekends Split/Shared Documentation I approve the management plan for this patient and take responsibility for the plan as documented. Discussion of Management or Test Interpretation with External Physician/KAMLESH: I personally performedand discussed the management of case or test interpretation with sap pp consultant Dr. Olmedo with [facility]. Kevin Coombs MD Teaching Physician Note: I saw and evaluated the patient. I personally obtained the lane and critical portions of the historyand physical exam. I reviewed the resident's documentation and discussed the patient with the resident. I agree with the resident's medical decision making as documented in the resident's note. Gray Olmedo MD [employer] Work Phone: [phone]) 886-683501-16-2024 Evaluation + Plan noteExtracted from:Title: ED NoteAuthor:Dino FISHER BrooksDate:12/14/23 Altered mental status (R41.8 2: Altered mental status, unspecified) Hypoglycemia (E16.2: Hypoglycemia, unspecified) UTI (urinary tract infection) (N39.0: Urinary tract infection, site not specified) Vomiting (R11.10: Vomiting, unspecified) Orders: cephalexin, 500 mg = 1 cap(s), Oral, q12hr, X 7 day(s), # 14 cap(s), Refills(s) 0, Pharmacy: [facility]/pharmacy #[id number], 152, cm, 12/14/23 9:14:00 EST, Height/Length Dosing, 52, kg, 12/14/23 9:14:00 EST, Weight Dosing ondansetron, 4 mg = 1 tab(s), Oral, q6hr, PRN Nausea, Take one tab by mouth every six hours as needed for nausea, # 10 tab(s), Refills(s) 0, Pharmacy: [facility]/pharmacy #[id number], 152, cm, 12/14/23 9:14:00 EST, Height/Length Dosing, 52, kg, 12/14/23 9:14:00 EST, Weight Dosing ondansetron, 4 mg = 2 mL, Injection, IV Push, Once, Stop date 12/14/23 9:18:00 EST, STAT, Start date 12/14/23 9:18:00 EST, 12/14/23 9:18:00 EST Sodium Chloride 0.9% intravenous solution, 1,000 mL, Soln-IV, IV, Once, Stop date 12/14/23 9:18:00 EST, STAT, Start date 12/14/23 9:18:00 EST, Infuse over 61, minute(s) Automated Diff Basic Metabolic Panel Capillary Glucose POC CBC w/ Auto Diff eGFR Extra Blue Tube Extra SST Tube Hepatic Function Panel Influenza A&B Ag Lipase Level Rapid COVID Antigen ([facility]) Troponin 0 Hr. UA With Cult Reflex Urine Culture XR Chest Single View Future Appointments Appointment Date:02/07/2024 01:00:00 PM Scheduled Provider:Natacha Oneill MD Location:[facility] Appointment Type: Open Appointment Date:08/08/2024 11:00:00 AM Scheduled Provider: Location:[facility] Appointment Type:FM Medicare Wellness Subsequent Diagnostic Tests Pending * Urine Culture 12/14/23 Future Scheduled Tests Laboratory* B Pertussis and B Parapertussis, DNA 03/22/23 Radiology* CT Chest w/o High Resolution 02/08/23 [facility]01-16-2024 Hospital Discharge instructions Follow Up Care 12/14/2023 09:08:50 With:Natacha Oneill Address: [address] [place] [id number] Business (2) When:1 to 2 days [facility]10-24-2023 Evaluation + Plan noteExtracted from: Title:Discharge NoteAuthor:ECHO VALENTINE, MblizbethfoDate:09/21/23 Stable Discharge To, Anticipated II - Home with home health Discharge Diet(s): Calorie Controlled- 1800 Calorie Diet, Other: 1500 mils per day fluid restriction (09/21/23 08:33:00) Prescriptions Albuterol (Eqv-ProAir HFA) 90 mcg/inh inhalation aerosol, See Instructions, Not taking alprazolam 0.25 mg Tab, See Instructions, PRN atorvastatin 10 mg Tab, 10 mg= 1 tab(s), Oral, Bedtime, 3 refills BLOOD GLUCOSE METER TEST STRIPS, See Instructions, 11 refills Freestyle Eduar 2 Flash Glucose Monitoring 14 Day System ([place]), See Instructions Freestyle Eduar 2 Flash Glucose Monitoring 14 Day System (Sensor), See Instructions Glucose Kit, See Instructions HumaLOG KwikPen 100 units/mL injectable solution, See Instructions LANCETS OF CHOICE OR SPECIFIED BY INSURANCE., See Instructions, 11 refills Lantus Solostar Pen 100 units/mL subcutaneous solution, 10 unit(s), SubCutaneous, BID, 1 refills losartan 50 mg Tab, See Instructions megestrol 20 mg Tab, 20 mg= 1 tab(s), Oral, QID, Still taking, not as prescribed: pt only taking two a day and not everyday propranolol 60 mg oral tablet, 60 mg= 1 tab(s), Oral, Bedtime, 3 refills sodium chloride 1 g Tab, 1 gm= 1 tab(s), Oral, BID Symbicort 160/4.5 inhalation aerosol with adapter, 2 puff(s), Inhalation, BID, Unable to obtain: ptconcern about cost Tessalon 100 mg Cap, 100 mg= 1 cap(s), Oral, TID, PRN Home amitriptyline 10 mg Tab, 20 mg= 2 tab(s), Oral, Bedtime, Unable to obtain: pt still taking but unable to refill multivitamin, See Instructions omeprazole 20 mg Cap-DR, 20 mg= 1 cap(s), Oral, Daily tizanidine 4 mg oral capsule, 4 mg= 1 cap(s), Oral, Bedtime Vitamin D 1000 intl units (25 mcg) Tab, 75 mcg= 3 tab(s), Oral, Daily With When Contact Information Natacha Oneill 09/30/2023 01:00 PM EDT [address] [place] [address] [facility] (2) Additional Instructions: Hyperglycemia, [id number] Diabetes Mellitus and Standards of Medical Care Hyponatremia, [id number] Extracted from:Title:Inpatient Consultation-Floor Code*Author:Espinoza Quintanilla MD Date:09/20/23 Impression and Plan 1. 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 Will check urine osmol and urine electrolytes. Looks like she has a baseline sodium in the 133-132. Started on fluid restriction and salt tablets, however wasnot able to tolerate the salt tablets. Sodium is slightly better then reported due to elevated blood sugars. Last sodium level in normal range. I believe a fluid restriction of 1-1.5 L will benefit her the most. Can monitor sodium level daily. No need for 3% saline or Tolvaptan Extracted from:Title:APSO NoteAuthor:ECHO VALENTINE, SorenfoDate:09/20/23 82-year-old female with history of diabetes mellitus type 2, interstitial lung disease, hypertension, hyperlipidemia, GERD, anxiety presented with complaints of generalized weakness, elevated blood sugar and was admitted with hyponatremia secondary to hyperglycemia secondary to poorly controlled diabetes mellitus, generalized weakness. 1. Hyponatremia (E87.1: Hypo-osmolality and hyponatremia) Secondary to hyperglycemia. Resolved. Ordered: [facility] Care/Day Moderate 35 Minutes 67480 2. DM2 (diabetes mellitus, type 2) (E11.9: Type 2 diabetes mellitus without complications) Hyperglycemia secondary to poorly controlled diabetes mellitus. Blood sugars improving. Patient was started on long-acting insulin during this admission. We will continue the same at discharge. Ordered: [facility] Care/Day Moderate 35 Minutes 63999 3. Weakness (R53.1: Weakness) Secondary to above. Improved. Patient will require home health physical therapy at discharge. Ordered: [facility] Hospital Care/Day Moderate 35 Minutes 62798 4. Nausea and vomiting (R11.2: Nausea with vomiting, unspecified) Etiology unknown. Obtain KUB. Ordered: [facility] Care/Day Moderate 35 Minutes 10446 5. Interstitial lung disease (J84.9: Interstitial pulmonary disease, unspecified) Chronic. Supportive care. 6. GERD (gastroesophageal reflux disease) (K21.9: Gastro-esophageal reflux disease without esophagitis) Supportive care. 7. HLD (hyperlipidemia) (E78.5: Hyperlipidemia, unspecified) On Lipitor. 8. HTN (hypertension) (I10: Essential (primary) hypertension) Blood pressure fairly controlled. Resume propranolol.. Ordered: propranolol, 60 mg = 1 cap(s), Cap-ER, Oral, Once, Stop date 09/20/23 10:00:00 EDT, Routine, Start date 09/20/23 10:00:00 EDT, 09/20/23 9:51:00 EDT propranolol, 60 mg = 1 cap(s), Cap-ER, Oral, Daily, Routine, Start date 09/21/23 9:00:00 EDT, 09/20/23 9:51:00 EDT 9. Anxiety (F41.9: Anxiety disorder, unspecified) Resume propranolol. Continue on as needed Xanax 10. On deep vein thrombosis (DVT) prophylaxis (Z79.899: Other half-way (current) drug therapy) Lovenox. Disposition: Home soon pending KUB. I discussed the diagnosis and plan of care with the patient at the bedside. Moderate level of MDM based on addressing above issues. This documentation was transcribed using voice recognition software. Several attempts were made to ensure accuracy. However inadvertent computerized collating machine operator errors may be present. Mirna Pulido. Hospitalist. Orders: Diabetic/Calorie Control Diet XR Abdomen 1 View Addendum by Mirna PULIDO MD on September 20, 2023 13:45:59 EDT Lantus BID at Discharge. Extracted from:Title:Progress/SOAP NoteAuthor:Jonathon Goldsmith DODate: 09/19/23 82-year-old admitted for hyp onatremia and hyperglycemia in a type II diabetic recently started on Ozempic plus she takes metformin. He also has generalized weakness. Comorbidities include type 2 diabetes, hypertension, hyperlipidemia, osteopenia, anxiety, GERD, interstitial lung disease and overactive bladder. 1. Hyponatremia (E87.1: Hypo-osmolality and hyponatremia) Sodium better 132; she is on sodium chloride tablet 1 g twice daily yesterday We will continue fluid restriction 800 mL/day for now Check sodium level in a.m. Ordered: [facility] Care/Day Moderate 35 Minutes 42234 2. DM2 (diabetes mellitus, type 2) (E11.9: Type 2 diabetes mellitus without complications) Hemoglobin A1c is 13.4 On sliding scale We will add Lantus 10 units twice daily for now Consider switching to insulin at discharge in place of her Ozempic [facility]Day Moderate 35 Minutes 21706 3. Weakness (R53.1: Weakness) Improved with PT Ordered: [facility] Care/Day Moderate 35 Minutes 22232 4. Interstitial lung disease (J84.9: Interstitial pulmonary disease, unspecified) Continue DuoNebs 4 times daily as needed Ordered: [facility] Care/Day Moderate 35 Minutes 71805 5. GERD (gastroesophageal reflux disease) (K21.9: Gastro-esophageal reflux disease without esophagitis) Ordered: [facility] Care/Day Moderate 35 Minutes 25183 6. HLD (hyperlipidemia) (E78.5: Hyperlipidemia, unspecified) On atorvastatin Ordered: [facility] Care/Day Moderate 35 Minutes 28448 7. HTN (hypertension) (I10: Essential (primary) hypertension) Maintain losartan Ordered: [facility] Care/Day Moderate 35 Minutes 61185 8. Anxiety (F41.9: Anxiety disorder, unspecified) Xanax as needed Ordered: [facility] Care/Day Moderate 35 Minutes 46193 9. On deep vein thrombosis (DVT) prophylaxis (Z79.899: 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) Subcu heparin and SCDs Ordered: [facility] Care/Day Moderate 35 Minutes 97713 Pneumonia (J18.9: Pneumonia, unspecified organism) Orders: insulin glargine, 10 unit(s), Injection-Insulin, SubCutaneous, BID, Routine, Start date 09/19/23 21:00:00 EDT, 09/19/23 11:47:00 EDT nystatin, 500,000 unit(s) = 5 mL, Susp-Oral, Oral, q6hr, Routine, Start date 09/19/23 12:00:00 EDT,09/19/23 11:47:00 EDT sodium chloride, 1 gram = 1 tab(s), Tab, Oral, BID, Routine, Start date 09/18/23 21:00:00 EDT, 09/18/23 15:05:00 EDT Basic Metabolic Panel Basic Metabolic Panel CBC w/ Indices eGFR PLAN: 1. We will continue fluid restriction 800 mL/day 2. Continue sodium chloride tablet 1 p.o. twice daily 3. Continue sliding scale insulin for her diabetes: We will add Lantus 10 units twice daily for tighter control 4. We will continue her other meds from home 5. Continue physical therapy 6. DVT prophylaxis with SCDs and subcu heparin 7. We will trial nystatin swish and swallow I was planning to discharge patient home today but her was concerned about her diabetes. I told him that we can start her on insulin as was discussed in the outpatient setting with her PCP at1 point in [address] of the Ozempic. He still did not feel comfortable going home at this time and wanted her to stay 1 more day. I added the Lantus twice daily as mentioned above. Consider switching to insulin in the outpatient setting. At discharge she will have home health care with speech therapy to evaluate her plus outpatient follow-up with GI. Speech therapy recommended Dysphagia treatment up to 5 times a week for pharyngeal strengthening. Discharge planning next 24 hours Extracted from:Title:Progress/SOAP NoteAuthor:Jonathon Goldsmith DOJabariDate: 09/18/23 82-year-old admitted for hyp onatremia and hyperglycemia in a type II diabetic recently started on Ozempic plus she takes metformin. He also has generalized weakness. Comorbidities include type 2 diabetes, hypertension, hyperlipidemia, osteopenia, anxiety, GERD, interstitial lung disease and overactive bladder. 1. Hyponatremia (E87.1: Hypo-osmolality and hyponatremia) Continue fluid restrictions Urine sodium at 71; I did talk with nephrology Dr. Quintanilla over the phone regarding the possibly of starting her on sodium chloride tablets and with no edema or hypertension he said it would be okay to start her sodium chloride tablets We will repeat lab in a.m. 2. DM2 (diabetes mellitus, type 2) (E11.9: Type 2 diabetes mellitus without complications) Still uncontrolled She does have sliding-scale insulin Consider switching to insulin at discharge in place of Ozempic 3. Weakness (R53.1: Weakness) Improved; continue PT Home health orders at discharge 4. Interstitial lung disease (J84.9: Interstitial pulmonary disease, unspecified) Continue DuoNeb 4 times daily as needed 5. GERD (gastroesophageal reflux disease) (K21.9: Gastro-esophageal reflux disease without esophagitis) 6. HLD (hyperlipidemia) (E78.5: Hyperlipidemia, unspecified) On atorvastatin 7. HTN (hypertension) (I10: Essential (primary) hypertension) Maintain losartan 8. Anxiety (F41.9: Anxiety disorder, unspecified) Xanax as needed 9. On deep vein thrombosis (DVT) prophylaxis (Z79.899: Other half-way (current) drug therapy) SCDs and subcu enoxaparin Pneumonia (J18.9: Pneumonia, unspecified organism) Orders: sodium chloride, 1 gram = 1 tab(s), Tab, Oral, BID, Routine, Start date 09/18/23 21:00:00 EDT, 09/18/23 15:05:00 EDT Basic Metabolic Panel Basic Metabolic Panel CBC w/ Indices eGFR Sodium Level Urine PLAN: 1. We will add sodium chloride tablets 1 g twice daily for now 2. Continue fluid restriction 3. Check lab in a.m. 4. Continue other meds from home 5. Continue PT 6. Continue sliding scale insulin for diabetes 7. Maintain DuoNebs 4 times daily as needed 8. DVT prophylaxis with SCDs and subcu enoxaparin 9. Discharge planning in next 24 hours with home health care; we will also have speech therapy evaluate her home and outpatient GI follow-up Extracted from:Title:Progress/SOAP NoteAuthor:Jonathon Goldsmith DODate: 09/17/23 82-year-old admitted for hyp onatremia and hyperglycemia in a type II diabetic recently started on Ozempic plus she takes metformin. He also has generalized weakness. Comorbidities include type 2 diabetes, hypertension, hyperlipidemia, osteopenia, anxiety, GERD, interstitial lung disease and overactive bladder. 1. Hyponatremia (E87.1: Hypo-osmolality and hyponatremia) Sodium at 128 this morning We did fluid restrict her to 1800 mL/day TSH normal We will check a urine sodium level Ordered: [facility]Day Moderate 35 Minutes 42723 2. DM2 (diabetes mellitus, type 2) (E11.9: Type 2 diabetes mellitus without complications) Accu-Cheks reviewed into the 340-204 range and her serum glucose this morning at 253; hemoglobin A1c 13.4 She is on sliding scale insulin We will consider switching her to insulin instead of Ozempic at discharge Ordered: Home Health Orders [facility] Hospital Care/Day Moderate 35 Minutes 83246 3. Weakness (R53.1: Weakness) Ordered: Home Health Orders [facility] Hospital Care/Day Moderate 35 Minutes 28557 4. Interstitial lung disease (J84.9: Interstitial pulmonary disease, unspecified) CT of the chest without contrast shows the interstitial lung disease and no acute process otherwise Continue DuoNebs 4 times daily as needed Ordered: [facility] Hospital Care/Day Moderate 35 Minutes 39554 5. GERD (gastroesophageal reflux disease) (K21.9: Gastro-esophageal reflux disease without esophagitis) [facility]: [facility] Moderate 35 Minutes 59109 6. HLD (hyperlipidemia) (E78.5: Hyperlipidemia, unspecified) Continue atorvastatin Ordered: [facility] Care/Day Moderate 35 Minutes 36862 7. HTN (hypertension) (I10: Essential (primary) hypertension) She is on losartan Ordered: [facility] Care/Day Moderate 35 Minutes 62058 8. Anxiety (F41.9: Anxiety disorder, unspecified) Alprazolam from home Ordered: [facility] Care/Day Moderate 35 Minutes 33168 9. On deep vein thrombosis (DVT) prophylaxis (Z79.899: 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) SCDs and subcu enoxaparin Ordered: [facility] Care/Day Moderate 35 Minutes 07315 Pneumonia (J18.9: Pneumonia, unspecified organism) Orders: alprazolam, 0.25 mg = 1 tab(s), Tab, Oral, TID PRN Anxiety, Routine, Start date 09/16/23 14:55:00 EDT, 09/16/23 14:55:00 EDT atorvastatin, 10 mg = 0.5 tab(s), Tab, Oral, Bedtime, Routine, Start date 09/16/23 21:00:00 EDT, 09/16/23 14:56:00 EDT cholecalciferol, 75 mcg = 3 tab(s), Tab, Oral, Daily, NOW, Start date 09/16/23 15:03:00 EDT losartan, 50 mg = 1 tab(s), Tab, Oral, Daily, NOW, Start date 09/16/23 15:03:00 EDT tizanidine, 4 mg = 1 tab(s), Tab, Oral, Bedtime, Routine, Start date 09/16/23 21:00:00 EDT, 09/16/23 14:58:00 EDT Basic Metabolic Panel Diabetic/Calorie Control Diet eGFR HgbA1c Physical Therapy Evaluate Patient, Develop a Plan of Care and Implement Plan Speech Language Pathology Additional Tx TSH With T4fr Reflex XR Adult Swallowing Function w/ Video: Evaluate Pt, Develop a Plan of Care & Implement Plan PLAN: 1. Modified barium swallow from this morning to check for possible aspiration; recommend for speechtherapy and outpatient GI follow-up 2. We will continue fluid restriction and check labs in a.m. 3. We will get a urine sodium level 4. Maintain PT 5. Continue sliding scale insulin for diabetes; may consider switching her Ozempic back to insulin at discharge; according to the daughter, this was considered by her PCP 6. DuoNebs 4 times daily as needed 7. Maintain other meds including losartan, atorvastatin As needed 8. DVT prophylaxis with SCDs and subcu enoxaparin 9. Discharge planning Extracted from:Title:Progress/SOAP NoteAuthor:Jonathon Goldsmith DODate: 09/16/23 82-year-old admitted for hyp onatremia and hyperglycemia in a type II diabetic recently started on Ozempic plus she takes metformin. He also has generalized weakness. Comorbidities include type 2 diabetes, hypertension, hyperlipidemia, osteopenia, anxiety, GERD, interstitial lung disease and overactive bladder. 1. Hyponatremia (E87.1: Hypo-osmolality and hyponatremia) Sodium is stable at 129; will fluid restricted 1800 mL/day repeat lab in a.m. She is on normal saline at 50 mils/hour 2. DM2 (diabetes mellitus, type 2) (E11.9: Type 2 diabetes mellitus without complications) Continue sliding scale insulin 3. Weakness (R53.1: Weakness) 4. Interstitial lung disease (J84.9: Interstitial pulmonary disease, unspecified) DuoNebs 4 times daily as needed 5. GERD (gastroesophageal reflux disease) (K21.9: Gastro-esophageal reflux disease without esophagitis) Stable 6. HLD (hyperlipidemia) (E78.5: Hyperlipidemia, unspecified) On atorvastatin 7. HTN (hypertension) (I10: Essential (primary) hypertension) We resumed her losartan; she has IV hydralazine as needed 8. Anxiety (F41.9: Anxiety disorder, unspecified) I resumed her alprazolam from home 9. On deep vein thrombosis (DVT) prophylaxis (Z79.899: Other half-way (current) drug therapy) SCDs subcu enoxaparin Pneumonia (J18.9: Pneumonia, unspecified organism) Orders: alprazolam, 0.25 mg = 1 tab(s), Tab, Oral, TID PRN Anxiety, Routine, Start date 09/16/23 14:55:00 EDT, 09/16/23 14:55:00 EDT atorvastatin, 10 mg = 0.5 tab(s), Tab, Oral, Bedtime, Routine, Start date 09/16/23 21:00:00 EDT, 09/16/23 14:56:00 EDT cholecalciferol, 75 mcg = 3 tab(s), Tab, Oral, Daily, Routine, Start date 09/17/23 9:00:00 EDT, 09/16/23 14:56:00 EDT losartan, 50 mg = 1 tab(s), Tab, Oral, Daily, Routine, Start date 09/17/23 9:00:00 EDT, 09/16/23 14:56:00 EDT tizanidine, 4 mg = 1 tab(s), Tab, Oral, Bedtime, Routine, Start date 09/16/23 21:00:00 EDT, 09/16/23 14:58:00 EDT Basic Metabolic Panel Diabetic/Calorie Control Diet HgbA1c Extracted from:Title:ED NoteAuthor:jolynn Devora FISHER ADate:09/16/23 1. Hyponatremia (E87.1: Hypo -osmolality and hyponatremia) 2. DM2 (diabetes mellitus, type 2) (E11.9: Type 2 diabetes mellitus without complications) 3. Weakness (R53.1: Weakness) 4. Interstitial lung disease (J84.9: Interstitial pulmonary disease, unspecified) 5. GERD (gastroesophageal reflux disease) (K21.9: Gastro-esophageal reflux disease without esophagitis) 6. HLD (hyperlipidemia) (E78.5: Hyperlipidemia, unspecified) 7. HTN (hypertension) (I10: Essential (primary) hypertension) 8. Anxiety (F41.9: Anxiety disorder, unspecified) 9. On deep vein thrombosis (DVT) prophylaxis (Z79.899: Other half-way (current) drug therapy) Pneumonia (J18.9: Pneumonia, unspecified organism) Orders: azithromycin + Sodium Chloride 0.9% intravenous solution 250 mL, 500 mg = 1 EA, Injection, IV Piggyback, Once, Stop date 09/15/23 21:11:00 EDT, STAT, Start date 09/15/23 21:11:00 EDT, 250 mL/hr, Infuse over 60 minute(s) ceftriaxone + Sodium Chloride 0.9% intravenous solution 50 mL, 1,000 mg = 1 EA, IV Piggyback, Once,Stop date 09/15/23 21:11:00 EDT, STAT, Start date 09/15/23 21:11:00 EDT, 100 mL/hr, Infuse over 30 minute(s), 09/15/23 21:11:00 EDT insulin regular, 6 unit(s) = 0.06 mL, Injection-Insulin, SubCutaneous, Once, Stop date 09/15/23 20:38:00 EDT, STAT, Start date 09/15/23 20:38:00 EDT metoprolol, 2.5 mg = 2.5 mL, Injection, IV Push, Once, Stop date 09/15/23 19:40:00 EDT, STAT, Startdate 09/15/23 19:40:00 EDT, 09/15/23 19:40:00 EDT Automated Diff Basic Metabolic Panel Blood Culture Charcoal Blood Culture Charcoal Blood Gas Felix Capillary Glucose POC Capillary Glucose POC CBC w/ Auto Diff ED Physician consult Hospitalist for continued care eGFR Extra Blue Tube Extra SST Tube Hepatic Function Panel Lactic Acid Procalcitonin Troponin 0 Hr. Troponin 3 Hr. TSH With T4fr Reflex UA With Cult Reflex XR Chest Single View Extracted from:Title:Admission H & PAuthor:Maxwell OSULLIVAN DO RDate:09/15/23 1. Hyponatremia (E87.1: Hypo -osmolality and hyponatremia) Suspect this is due to poor intake. Patient states that she lacks appetite. She was recently started on megestrol. She is currently on nutritional supplement shakes but does not drink enough of them per day. Will gently hydrate patient and recheck sodium with morning labs. Patient historically has run in the low 130s for her sodium. 2. DM2 (diabetes mellitus, type 2) (E11.9: Type 2 diabetes mellitus without complications) Will place patient on diabetic diet. Suspect hyperglycemia may be playing a significant role in patient's dehydration and general feeling of weakness. We will use sliding scale insulin overnight. Resume home medications once verified. Will gently hydrate as noted above. 3. Weakness (R53.1: Weakness) We will check cortisol level, vitamin B12, folate levels for possible reversible causes of weakness. Suspect dehydration also playing a role in patient's weakness. 4. Interstitial lung disease (J84.9: Interstitial pulmonary disease, unspecified) We will resume patient on breathing treatments. I did encourage patient to resume her inhalers to optimize her lung function. Patient was treated with with IV azithromycin/Rocephin in the emergency department. At this point I do not feel patient has a pneumonia therefore I did not continue these. Ihave ordered respiratory viral panel, influenza A/B, COVID-19 rapid swab. Will defer continuation of antibiotics to daytime rounding team. Chest CT noncontrast performed but results pending. 5. GERD (gastroesophageal reflux disease) (K21.9: Gastro-esophageal reflux disease without esophagitis) Resume PPI once dose verified 6. HLD (hyperlipidemia) (E78.5: Hyperlipidemia, unspecified) Resume statin once dose verified 7. HTN (hypertension) (I10: Essential (primary) hypertension) Resume home medications once reconciled. Hydralazine iv prn. see orders. 8. Anxiety (F41.9: Anxiety disorder, unspecified) Xanax as needed 9. On deep vein thrombosis (DVT) prophylaxis (Z79.899: Other half-way (current) drug therapy) SCD, enoxaparin Orders: acetaminophen, 650 mg = 2 tab(s), Tab, Oral, q6hr PRN Pain, Routine, Start date 09/15/23 22:41:00 EDT, 09/15/23 22:41:00 EDT albuterol-ipratropium, 3 mL, Soln-Inh, Inhalation, QID PRN Dyspnea for 30 day(s), Stop date 10/15/23 22:38:00 EST, Routine, Start date 09/15/23 22:39:00 EDT benzonatate, 100 mg = 1 cap(s), Cap, Oral, TID PRN Cough, Routine, Start date 09/15/23 22:39:00 EDT, 09/15/23 22:39:00 EDT diphenhydrAMINE, 25 mg = 1 cap(s), Cap, Oral, q6hr PRN Itching, Routine, Start date 09/15/23 22:41:00 EDT, 09/15/23 22:41:00 EDT enoxaparin, 40 mg = 0.4 mL, Injection, SubCutaneous, Daily for 30 day(s), Stop date 10/16/23 8:59:00 EST, Routine, Start date 09/16/23 9:00:00 EDT, 09/15/23 22:41:00 EDT glucose, 50 mL, Soln-IV, IV Push, Once PRN Blood glucose, Routine, Start date 09/15/23 22:40:00 EDT hydrALAZINE, 10 mg = 0.5 mL, Injection, IV Push, q6hr PRN Other (see comment), Routine, Start date 09/15/23 22:41:00 EDT, 09/15/23 22:41:00 EDT ibuprofen, 800 mg = 1 tab(s), Tab, Oral, TID PRN Pain, Routine, Start date 09/15/23 22:41:00 EDT, 09/15/23 22:41:00 EDT insulin lispro, 0-10 Unit(s), Injection-Insulin, SubCutaneous, QIDACHS, Routine, Start date 09/16/23 7:30:00 EDT ondansetron, 4 mg = 2 mL, Injection, IV Push, q6hr PRN Nausea, Routine, Start date 09/15/23 22:41:00 EDT, 09/15/23 22:41:00 EDT promethazine, 12.5 mg = 0.5 mL, Injection, IV Push, q6hr PRN Nausea, Routine, Start date 09/15/23 22:41:00 EDT, 09/15/23 22:41:00 EDT Sodium Chloride 0.9% intravenous solution 1,000 mL, 1,000 mL, IV, 50 mL/hr, Routine, Start date 09/15/23 23:43:00 EDT, 20 hour(s), Total volume (mL): 1,000, 44.9 kg, 1.38, m2 Ambulate with Assistance Basic Metabolic Panel Below the Knee Intermittent Pneumatic Compression Device Cardiac Monitoring CBC w/ Indices Cortisol CT Chest w/o Contrast Diabetic/Calorie Control Diet Folate Level Hypoglycemia Protocol Responsive Patient Hypoglycemia Protocol Unresponsive Patient Influenza A&B Ag Magnesium Level Notify Provider Vital Signs Notify Provider Vital Signs Oxygen Protocol Place in Status Precautions Rapid COVID Antigen ([facility] [place]) Respiratory Panel by PCR Resuscitation Status - Full Routine Capillary Glucose POC Troponin Vital Signs Vitamin B12 Level Weight Anticipated stay greater than 2 midnights due to above Future Appointments Appointment Date:09/27/2023 09:00:00 AM Scheduled Provider: [facility] Appointment Type: Nurse Visit Appointment Date:09/30/2023 01:00:00 PM Scheduled Provider:Natacha Oneill MD Location[facility] Appointment Type: Hospital Follow Up w/TCM Appointment Date:10/04/2023 09:40:00 AM Scheduled Provider:Natacha Oneill MD Location[facility] Appointment Type: Open Appointment Date:08/08/2024 11:00:00 AM Scheduled Provider: Location:[facility] Appointment Type: Medicare Wellness Subsequent Future Scheduled Tests Laboratory* B Pertussis and B Parapertussis, DNA 03/22/23 Radiology* CT Chest w/o High Resolution 02/08/23 [facility]10-24-2023 Hospital Discharge instructions Patient Education 09/21/2023 08:35:42 Hyperglycemia, [id number] Hyperglycemia Hyperglycemia is when the sugar (glucose) level in your blood is too high. High blood sugar can happen to people who have or do not have diabetes. High blood sugar can happen quickly. It can be an emergency. What are the causes? If you have diabetes, high blood sugar may be caused by: Medicines that increase blood sugar or affect your control of diabetes. Getting less physical activity. Overeating. Being sick or injured or having an infection. Having surgery. Stress. Not giving yourself enough insulin (if you are taking it). You may have high blood sugar because you have diabetes that has not been diagnosed yet. If you do not have diabetes, high blood sugar may be caused by: Certain medicines. Stress. A bad illness. An infection. Having surgery. Diseases of the pancreas. What increases the risk? This condition is more likely to develop in people who have risk factors for diabetes, such as: Having a family member with diabetes. Certain conditions in which the body's defense system (immune system) attacks itself. These are called autoimmune disorders. Being overweight. Not being active. Having a condition called insulin resistance. Having a history of: ?Prediabetes. ?Diabetes when . ?Polycystic ovarian syndrome (PCOS). What are the signs or symptoms? This condition may not cause symptoms. If you do have symptoms, they may include: Feeling more thirsty than normal. Needing to pee (urinate) more often than normal. Hunger. Feeling very tired. Blurry eyesight (vision). You may get other symptoms as the condition gets worse, such as: Dry mouth. Pain in your belly (abdomen). Not being hungry (loss of appetite). Breath that smells fruity. Weakness. Weight loss that is not planned. A tingling or numb feeling in your hands or feet. A headache. Cuts or bruises that heal slowly. How is this treated? Treatment depends on the cause of your condition. Treatment may include: Taking medicine to control your blood sugar levels. Changing your medicine or dosage if you take insulin or other diabetes medicines. Lifestyle changes. These may include: ?Exercising more. ?Eating healthier foods. ?Losing weight. Treating an illness or infection. Checking your blood sugar more often. Stopping or reducing steroid medicines. If your condition gets very bad, you will need to be treated in the hospital. Follow these instructions at home: General instructions Take alyp-ddc-zquafst and prescription medicines only as told by your doctor. Do not smoke or use any products that contain nicotine or tobacco. If you need help quitting, ask your doctor. If you drink alcohol: ?Limit how much you have to: ?0 1 drink a day for women who are not . ?0 2 drinks a day for men. ?Know how much alcohol is in a drink. In the [place] one drink equals one 12 oz bottle of beer (355 mL), one 5 oz glass of wine (148 mL), or one 1 oz glass of hard liquor (44 mL). Manage stress. If you need help with this, ask your doctor. Do exercises as told by your doctor. Keep all follow-up visits. Eating and drinking Stay at a healthy weight. Make sure you drink enough fluid when you: ?Exercise. ?Get sick. ?Are in hot temperatures. Drink enough fluid to keep your pee (urine) pale yellow. If you have diabetes: Know the symptoms of high blood sugar. Follow your diabetes management plan as told by your doctor. Make sure you: ?Take insulin and medicines as told. ?Follow your exercise plan. ?Follow your meal plan. Eat on time. Do not skip meals. ?Check your blood sugar as often as told. Make sure you check before and after exercise. If you exercise longer or in a different way, check your blood sugar more often. ?Follow your sick day plan whenever you cannot eat or drink normally. Make this plan ahead of time with your doctor. Share your diabetes management plan with people in your workplace, school, and household. Check your pee for ketones when you are ill and as told by your doctor. Carry a card or wear jewelry that says that you have diabetes. Where to find more information [place] [employer]: www.diabetes.org Contact a doctor if: Your blood sugar level is at or above 240 mg/dL (13.3 mmol/L) for 2 days in a row. You have problems keeping your blood sugar in your target range. You have high blood pressure often. You have signs of illness, such as: ?Feeling like you may vomit (feeling nauseous). ?Vomiting. ?A fever. Get help right away if: Your blood sugar monitor reads high even when you are taking insulin. You have trouble breathing. You have a change in how you think, feel, or act (mental status). You feel like you may vomit, and the feeling does not go away. You cannot stop vomiting. These symptoms may be an emergency. Get medical help right away. Call your local emergency services(911 in the [place] Do not wait to see if the symptoms will go away. Do not drive yourself to the hospital. Summary Hyperglycemia is when the sugar (glucose) level in your blood is too high. High blood sugar can happen to people who have or do not have diabetes. Make sure you drink enough fluids and follow your meal plan. Exercise as often as told by your doctor. Contact your doctor if you have problems keeping your blood sugar in your target range. This information is not intended to replace advice given to you by your health care provider. Make sure you discuss any questions you have with your health care provider. Document Revised: 08/29/2021 Document Reviewed: 08/29/2021 [employer] Patient Education 2022 [employer]. 09/21/2023 08:35:33 Diabetes Mellitus and Standards of Medical Care Diabetes Mellitus and Standards of Medical Care Living with and managing diabetes (diabetes mellitus) can be complicated. Your diabetes treatment may be managed by a team of health care providers, including: A physician who specializes in diabetes (bar roller). You might also have visits with a nurse practitioner or physician call center assistant. Nurses. A registered dietitian. A certified diabetes care and education spec. An mortgage protection specialist. A pharmacist. An eye doctor. A flag football coach (truck hop). A dental care provider. A primary care provider. A mental health care provider. How to manage your diabetes You can do many things to successfully manage your diabetes. Your health care providers will followguidelines to help you get the best quality of care. Here are general guidelines for your diabetes management plan. Your health care providers may give you more specific instructions. Physical exams When you are diagnosed with diabetes, and each year after that, your health care provider will ask about your medical and family history. You will have a physical exam, which may include: Measuring your height, weight, and body mass index (BMI). Checking your blood pressure. This will be done at every routine medical visit. Your target blood pressure may vary depending on your medical conditions, your age, and other factors. A thyroid exam. A skin exam. Screening for nerve damage (peripheral neuropathy). This may include checking the pulse in your legs and feet and the level of sensation in your hands and feet. A foot exam to inspect the structure and skin of your feet, including checking for cuts, bruises, redness, blisters, sores, or other problems. Screening for blood vessel (vascular) problems. This may include checking the pulse in your legs and feet and checking your temperature. Blood tests Depending on your treatment plan and your personal needs, you may have the following tests: Hemoglobin A1C (HbA1C). This test provides information about blood sugar (glucose) control over theprevious 2 3 months. It is used to adjust your treatment plan, if needed. This test will be done: ?At least 2 times a year, if you are meeting your treatment goals. ?4 times a year, if you are not meeting your treatment goals or if your goals have changed. Lipid testing, including total cholesterol, LDL and HDL cholesterol, and triglyceride levels. ?The goal for LDL is less than 100 mg/dL (5.5 mmol/L). If you are at high risk for complications, the goal is less than 70 mg/dL (3.9 mmol/L). ?The goal for HDL is 40 mg/dL (2.2 mmol/L) or higher for men, and 50 mg/dL (2.8 mmol/L) or higher for women. An HDL cholesterol of 60 mg/dL (3.3 mmol/L) or higher gives some protection against heart disease. ?The goal for triglycerides is less than 150 mg/dL (8.3 mmol/L). Liver function tests. Kidney function tests. Thyroid function tests. Dental and eye exams Visit your dentist two times a year. If you have type 1 diabetes, your health care provider may recommend an eye exam within 5 years after you are diagnosed, and then once a year after your first exam. ?For children with type 1 diabetes, the health care provider may recommend an eye exam when your child is age 11 or older and has had diabetes for 3 5 years. After the first exam, your child should get an eye exam once a year. If you have type 2 diabetes, your health care provider may recommend an eye exam as soon as you arediagnosed, and then every 1 2 years after your first exam. Immunizations A yearly flu (influenza) vaccine is recommended annually for everyone 6 months or older. This is especially important if you have diabetes. The pneumonia (pneumococcal) vaccine is recommended for everyone 2 years or older who has diabetes.If you are age 65 or older, you may get the pneumonia vaccine as a series of two separate shots. The hepatitis B vaccine is recommended for adults shortly after being diagnosed with diabetes. Adults and children with diabetes should receive all other vaccines according to age-specific recommendations from the Centers for Disease Control and Prevention (CDC). Mental and emotional health Screening for symptoms of eating disorders, anxiety, and depression is recommended at the time of diagnosis and after as needed. If your screening shows that you have symptoms, you may need more evaluation. You may work with a mental health care provider. Follow these instructions at home: Treatment plan You will monitor your blood glucose levels and may give yourself insulin. Your treatment plan will be reviewed at every medical visit. You and your health care provider will discuss: How you are taking your medicines, including insulin. Any side effects you have. Your blood glucose level target goals. How often you monitor your blood glucose level. Lifestyle habits, such as activity level and tobacco, alcohol, and substance use. Education Your health care provider will assess how well you are monitoring your blood glucose levels and whether you are taking your insulin and medicines correctly. He or she may refer you to: A certified diabetes care and education spec to manage your diabetes throughout your life, starting at diagnosis. A registered dietitian who can create and review your personal nutrition plan. An mortgage protection specialist who can discuss your activity level and exercise plan. General instructions Take mklm-shp-qojbioc and prescription medicines only as told by your health care provider. Keep all follow-up visits. This is important. Where to find support There are many diabetes support networks, including: [place] [employer] (ADA): diabetes.org Defeat Diabetes Foundation: defeatdiabetes.org Where to find more information [place] [employer] (ADA): www.diabetes.org Association of Diabetes Care & Education Specialists (ADCES): diabeteseducator.org International Diabetes Federation (IDF): idf.org Summary Managing diabetes (diabetes mellitus) can be complicated. Your diabetes treatment may be managed bya team of health care providers. Your health care providers follow guidelines to help you get the best quality care. You should have physical exams, blood tests, blood pressure monitoring, immunizations, and screening tests regularly. Stay updated on how to manage your diabetes. Your health care providers may also give you more specific instructions based on your individual health. This information is not intended to replace advice given to you by your health care provider. Make sure you discuss any questions you have with your health care provider. Document Revised: 05/22/2021 Document Reviewed: 05/22/2021 [employer] Patient Education 2022 [employer]. 09/21/2023 08:35:12 Hyponatremia, Mcgb-ml-Adsw Hyponatremia Hyponatremia is when the amount of salt (sodium) in your blood is too low. When salt levels are low, your body cells may take in extra water. This can cause swelling. The swelling often affects the brain. What are the causes? Certain medical problems or conditions. Vomiting a lot. Having watery poop (diarrhea) often. Sweating too much. Taking certain medicines or using illegal drugs. Fluids given through an IV tube. What increases the risk? Having heart, kidney, or liver failure. Having a medical condition that causes you to have watery poop a lot. Doing very hard exercises. Taking medicines that affect the amount of salt that is in your blood. What are the signs or symptoms? Symptoms of this condition include: Headache. Feeling like you may vomit (nausea). Vomiting. Being very tired. Muscle weakness and cramps. Not wanting to eat as much as normal. Feeling weak or dizzy. Very bad symptoms of this condition include: Confusion. Feeling restless. Having a fast heart rate. Fainting. Seizures. Coma. How is this treated? Treatment for this condition depends on the cause. Treatment may include: Getting fluids through an IV tube that is put into one of your veins. Taking medicines to fix the salt levels in your blood. If medicines are causing the problem, your medicines will need to be changed. Limiting how much water or fluid you take in, in some cases. Monitoring in the hospital to watch your symptoms. Follow these instructions at home: Take cyko-[id number]-zfecmnf and prescription medicines only as told by your doctor. Many medicines can make this condition worse. Talk with your doctor about any medicines that you are taking. Do not drink alcohol. Keep all follow-up visits. Contact a doctor if: You feel more like you may vomit. You feel more tired. Your headache gets worse. You feel more confused. You feel weaker. Your symptoms go away and then they come back. Get help right away if: You have a seizure. You faint. You keep having watery poop. You keep vomiting. Summary Hyponatremia is when the amount of salt in your blood is too low. When salt levels are low, you can have swelling throughout the body. The swelling mostly affects the brain. Treatment depends on the cause. Treatment may include IV fluids and changing medicines. This information is not intended to replace advice given to you by your health care provider. Make sure you discuss any questions you have with your health care provider. Document Revised: 05/26/2022 Document Reviewed: 05/26/2022 [employer] Patient Education 2022 [employer]. Follow Up Care 09/15/2023 18:56:03 With:Natacha Oneill Address: [address] [place] [id number] Business (2) When:09/30/2023 13:00:00 [facility]05-12-2022 Evaluation + Plan noteExtracted from: Title:Discharge NoteAuthor:Jhoan BERMUDEZ MD PDate:04/09/22 1. Acute encephalopathy (G93.40: Encephalopathy, unspecified) 2. Hypoglycemia (E16.2: Hypoglycemia, unspecified) 3. Hyponatremia (E87.1: Hypo-osmolality and hyponatremia) 4. Hypertension (I10: Essential (primary) hypertension) 5. Hyperlipidemia (E78.5: Hyperlipidemia, unspecified) 6. GERD (gastroesophageal reflux disease) (K21.9: Gastro-esophageal reflux disease without esophagitis) 7. Anxiety (F41.9: Anxiety disorder, unspecified) 8. Dehydration (E86.0: Dehydration) 9. Overactive bladder (N32.81: Overactive bladder) Orders: Discharge Patient Discharge Status: Improved Discharge Instructions Given: To patient Discharge disposition: Home Prescriptions reviewed with Patient <30 min in discharge time Prescriptions ibandronate 150 mg oral tablet, See Instructions, 4 refills Home alprazolam 0.25 mg Tab, See Instructions, PRN amitriptyline 10 mg Tab, 20 mg= 2 tab(s), Oral, Bedtime atorvastatin 10 mg Tab, 10 mg= 1 tab(s), Oral, Bedtime losartan 50 mg Tab, 50 mg= 1 tab(s), Oral, Daily metformin 500 mg ER Tab, See Instructions metformin 500 mg ER Tab, 1000 mg= 2 tab(s), Oral, AMPM oxybutynin 10 mg ER Tab, 10 mg= 1 tab(s), Oral, Daily propranolol 60 mg oral tablet, 60 mg= 1 tab(s), Oral, Bedtime Vitamin D 1000 intl units (25 mcg) Tab, 50 mcg= 2 tab(s), Oral, Daily With When Contact Information [place] VALENTINE, DINA Ames Within 2 to [address] [address]- Additional Instructions: SULEMAN JACKSON [address] [place] [id number] Business (1) Additional Instructions: Call for followup appointment Preventing Hypoglycemia Hypoglycemia Confusion Extracted from:Title:Consult Note-neurologyAuthor:Iliana RENEE, CyrusoleDate:04/09/22 The patient is a 81-year-old female with a history of hypertension, hyperlipidemia, diabetes mellitus, and remote history of seizure who admitted to the hospital with a sewed of confusion in the setting of hypoglycemia. Patient likely has transient encephalopathy related to hypoglycemia. The patient will be evaluated for other potential etiologies including underlying cerebral ischemia given her history of vascular risk factors. In addition, the patient has history of seizure we will assess for partial complex seizure contributing to a component of the patient's symptoms. The patient is currently back to her baseline with correction of underlying blood sugar. -I have reviewed the CT scan of the brain personally -I recommend obtaining an MRI scan of the brain with and without contrast to assess for a structural lesion which may predispose the patient to a focal seizure -I recommend obtaining an EEG to assess for any epileptiform activity which may have contributed tothe patient's clinical symptoms -Counseled the patient and family on the possible diagnosis, prognosis, evaluation, and treatment options. I answered all questions. The patient states understanding. -I discussed the case with the hospitalist Dr. Bermudez 1. Acute encephalopathy (G93.40: Encephalopathy, unspecified) 2. Hypoglycemia (E16.2: Hypoglycemia, unspecified) 3. Hyponatremia (E87.1: Hypo-osmolality and hyponatremia) 4. Hypertension (I10: Essential (primary) hypertension) 5. Hyperlipidemia (E78.5: Hyperlipidemia, unspecified) 6. GERD (gastroesophageal reflux disease) (K21.9: Gastro-esophageal reflux disease without esophagitis) 7. Anxiety (F41.9: Anxiety disorder, unspecified) 8. Dehydration (E86.0: Dehydration) 9. Overactive bladder (N32.81: Overactive bladder) Extracted from:Title:Admission H & PAuthor:TONA Kalen FISHER ADate:04/08/22 1. Acute encephalopathy (G93 .40: Encephalopathy, unspecified) Differential is likely multifactorial however feel predominant role of #[address] of the head was suggestive of chronic small vessel ischemic disease cannot rule out therefore vascular contribution (question small vessel) though she had an NIH of 0 and would not anticipate a large vessel occlusion. Also potential role of hyponatremia. Note patient was also hypertensive, cannot rule out hypertensive encephalopathy. We will complete the metabolic work-up including thyroid function studies, vitamin B12, recent treatment of respiratory illness and continued Augmentin we will check inflammatorymarkers. States she has not taken any anticholinergics over the past few days therefore less likelythis could be contributing. Patient states she takes Xanax though written 3 times daily as needed only at night in light of her mental status issues we will hold this for now. To be complete we willdo neuro checks throughout the evening, will check an MRI of the brain if any suspicious findings occur can do a further work-up at direction of neurology who we will place on consultation 2. Hypoglycemia (E16.2: Hypoglycemia, unspecified) Metformin will be unlikely to result in hypoglycemia. In review of up-to-date Invokana can result in hypoglycemia incidence of 4% likely due to decreased gut glucose absorption though its primary effect blocking reabsorption renally. Monitor every 2 hours until we are certain of stability of glucose. Patient states several years ago she had a few surgeries on her pancreas states it was a mass denied it being cancerous was unable to give further details. We will check insulin and C-peptide levels. We will hold Invokana and metformin. Check hemoglobin A1c. With hyponatremia we will also check serum cortisol. I see no evidence of evolving sepsis Ordered: HgbA1c 3. Hyponatremia (E87.1: Hypo-osmolality and hyponatremia) Patient was treated for respiratory illness recently with Levaquin is now on Augmentin she implied lung infection but now being treated for sinus infection. Cannot rule out SIADH. She did have 1 incident of vomiting last week. We will check in light of above serum cortisol and thyroid function studies 4. Hypertension (I10: Essential (primary) hypertension) Patient did have a systolic blood pressure of 171/87 in the emergency department but had improved but is beginning to rise again. Patient has not yet received her evening dose of propranolol which will be resumed. We will continue her losartan that she receives in the morning. We will make as needed hydralazine available 5. Hyperlipidemia (E78.5: Hyperlipidemia, unspecified) Continue atorvastatin. Check lipid panel Ordered: Lipid Panel 6. GERD (gastroesophageal reflux disease) (K21.9: Gastro-esophageal reflux disease without esophagitis) Question if patient is implying that a family member gave her PPI started description not on the med reconciliation 7. Anxiety (F41.9: Anxiety disorder, unspecified) Will transiently hold Xanax until work-up above is complete 8. Dehydration (E86.0: Dehydration) Patient is prerenal. She is at risk for this with Invokana. We will gently hydrate 9. Overactive bladder (N32.81: Overactive bladder) We will hold anticholinergics which she states she has not taken in the last few days till patient completes work-up for above Orders: acetaminophen, 650 mg = 2 tab(s), Tab, Oral, q6hr PRN Pain, Routine, Start date 04/09/22 0:16:00 EDT, 04/09/22 0:16:00 EDT amitriptyline, 20 mg = 2 tab(s), Tab, Oral, Bedtime, Routine, Start date 04/09/22 0:11:00 EDT, 04/09/22 0:11:00 EDT atorvastatin, 10 mg = 0.5 tab(s), Tab, Oral, Bedtime, Routine, Start date 04/09/22 0:10:00 EDT, 04/09/22 0:10:00 EDT cholecalciferol, 50 mcg = 2 tab(s), Tab, Oral, Daily, Routine, Start date 04/09/22 9:00:00 EDT, 04/09/22 0:09:00 EDT hydrALAZINE, 10 mg = 0.5 mL, Injection, IV Push, q6hr PRN Other (see comment), Routine, Start date 04/09/22 0:16:00 EDT, 04/09/22 0:16:00 EDT losartan, 50 mg = 1 tab(s), Tab, Oral, Daily, Routine, Start date 04/09/22 9:00:00 EDT, 04/09/22 0:09:00 EDT ondansetron, 4 mg = 2 mL, Injection, IV Push, q6hr PRN Nausea, Routine, Start date 04/09/22 0:16:00EDT, 04/09/22 0:16:00 EDT propranolol, 60 mg = 1.5 tab(s), Tab, Oral, Bedtime, Routine, Start date 04/09/22 0:11:00 EDT, 04/09/22 0:11:00 EDT Sodium Chloride 0.9% intravenous solution 1,000 mL, 1,000 mL, IV, 75 mL/hr, Routine, Start date 04/09/22 0:16:00 EDT, 13.3 hour(s), Total volume (mL): 1,000, 53 kg, 1.55, m2 Ambulate with Assistance Basic Metabolic Panel C-Peptide Capillary Glucose POC Capillary Glucose POC Cardiac Monitoring CBC w/ Auto Diff Consult to Neurology Cortisol Insulin Free and Total MRI Brain w/o Contrast Neurological Assessment Notify Provider Vital Signs Notify Provider Vital Signs Place in Status Regular Diet Resuscitation Status - Full Sedimentation Rate Automated TSH With T4fr Reflex Vital Signs Vitamin B12 Level Weight Patient is admitted as an observation with the anticipation she would not require 2 midnight stay Extracted from:Title:ED NoteAuthor:Devora Galaviz DO ADate:04/08/22 Altered mental status (R41.8 2: Altered mental status, unspecified) Hypoglycemia (E16.2: Hypoglycemia, unspecified) Orders: aspirin, 324 mg = 4 tab(s), Tab-Chew, Oral, Once, Stop date 04/08/22 21:13:00 EDT, STAT, Start date04/08/22 21:13:00 EDT, 04/08/22 21:13:00 EDT glucose, 25 mL, Soln-IV, IV Push, Once, Stop date 04/08/22 19:56:00 EDT, STAT, Start date 04/08/22 19:56:00 EDT Sodium Chloride 0.9% intravenous solution, 1,000 mL, Soln-IV, IV, Once, Stop date 04/08/22 19:16:00EDT, STAT, Start date 04/08/22 19:16:00 EDT, mL/hr, Infuse over 61, minute(s) Automated Diff Basic Metabolic Panel Capillary Glucose POC Capillary Glucose POC Capillary Glucose POC CBC w/ Auto Diff Continuous Pulse Oximetry CT Head or Brain w/o Contrast ED Cardiac Monitoring ED Physician consult Hospitalist for continued care eGFR Extra Blue Tube Hepatic Function Panel Oxygen Therapy Routine Capillary Glucose POC Troponin 0 Hr. UA With Cult Reflex XR Chest Single View Diagnostic Tests Pending * Cortisol 04/09/22 * C-Peptide 04/09/22 * Insulin Free and Total 04/09/22 [facility]05-12-2022 Hospital Discharge instructions Patient Education 04/09/2022 10:45:16 Preventing Hypoglycemia Preventing Hypoglycemia Hypoglycemia occurs when the level of sugar (glucose) in the blood is too low. Hypoglycemia can happen in people who do or do not have diabetes (diabetes mellitus). It can develop quickly, and it canbe a medical emergency. For most people with diabetes, a blood glucose level below 70 mg/dL (3.9 mmol/L) is considered hypoglycemia. Glucose is a type of sugar that provides the body's main source of energy. Certain hormones (insulin and glucagon) control the level of glucose in the blood. Insulin lowers blood glucose, and glucagon increases blood glucose. Hypoglycemia can result from having too much insulin in the bloodstream, or from not eating enough food that contains glucose. Your risk for hypoglycemia is higher: If you take insulin or diabetes medicines to help lower your blood glucose or help your body make more insulin. If you skip or delay a meal or snack. If you are ill. During and after exercise. You can prevent hypoglycemia by working with your health care provider to adjust your meal plan as needed and by taking other precautions. How can hypoglycemia affect me? Mild symptoms Mild hypoglycemia may not cause any symptoms. If you do have symptoms, they may include: Hunger. Anxiety. Sweating and feeling clammy. Dizziness or feeling light-headed. Sleepiness. Nausea. Increased heart rate. Headache. Blurry vision. Irritability. Tingling or numbness around the mouth, lips, or tongue. A change in coordination. Restless sleep. If mild hypoglycemia is not recognized and treated, it can quickly become moderate or severe hypoglycemia. Moderate symptoms Moderate hypoglycemia can cause: Mental confusion and poor judgment. Behavior changes. Weakness. Irregular heartbeat. Severe symptoms Severe hypoglycemia is a medical emergency. It can cause: Fainting. Seizures. Loss of consciousness (coma). . What nutrition changes can be made? Work with your health care provider or diet and urban gardening specialist (dietitian) to make a healthy meal plan that is right for you. Follow your meal plan carefully. Eat meals at regular times. If recommended by your health care provider, have snacks between meals. Donot skip or delay meals or snacks. You can be at risk for hypoglycemia if you are not getting enough carbohydrates. What lifestyle changes can be made? Work closely with your health care provider to manage your blood glucose. Make sure you know: ?Your goal blood glucose levels. ?How and when to check your blood glucose. ?The symptoms of hypoglycemia. It is important to treat it right away to keep it from becoming severe. Do not drink alcohol on an empty stomach. When you are ill, check your blood glucose more often than usual. Follow your sick day plan whenever you cannot eat or drink normally. Make this plan in advance with your health care provider. Always check your blood glucose before, during, and after exercise. How is this treated? This condition can often be treated by immediately eating or drinking something that contains sugar, such as: Fruit juice, 4 6 oz (120 150 mL). Regular (not diet) soda, 4 6 oz (120 150 mL). Low-fat milk, 4 oz (120 mL). Several pieces of hard candy. Sugar or honey, 1 Tbsp (15 mL). Treating hypoglycemia if you have diabetes If you are alert and able to swallow safely, follow the 15:15 rule: Take 15 grams of a rapid-acting carbohydrate. Talk with your health care provider about how much you should take. Rapid-acting options include: ?Glucose pills (take 15 grams). ?6 8 pieces of hard candy. ?4 6 oz (120 150 mL) of fruit juice. ?4 6 oz (120 150 mL) of regular (not diet) soda. Check your blood glucose 15 minutes after you take the carbohydrate. If the repeat blood glucose level is still at or below 70 mg/dL (3.9 mmol/L), take 15 grams of a carbohydrate again. If your blood glucose level does not increase above 70 mg/dL (3.9 mmol/L) after 3 tries, seek emergency medical care. After your blood glucose level returns to normal, eat a meal or a snack within 1 hour. Treating severe hypoglycemia Severe hypoglycemia is when your blood glucose level is at or below 54 mg/dL (3 mmol/L). Severe hypoglycemia is a medical emergency. Get medical help right away. If you have severe hypoglycemia and you cannot eat or drink, you may need an injection of glucagon.A family member or close friend should learn how to check your blood glucose and how to give you a glucagon injection. Ask your health care provider if you need to have an emergency glucagon injection kit available. Severe hypoglycemia may need to be treated in a hospital. The treatment may include getting glucosethrough an IV. You may also need treatment for the cause of your hypoglycemia. Where to find more information [place] [employer]: www.diabetes.org [employer] [place] [employer] Diabetes and Digestive and Kidney Diseases: www.niddk.nih.gov Contact a health care provider if: You have problems keeping your blood glucose in your target range. You have frequent episodes of hypoglycemia. Get help right away if: You continue to have hypoglycemia symptoms after eating or drinking something containing glucose. Your blood glucose level is at or below 54 mg/dL (3 mmol/L). You faint. You have a seizure. These symptoms may represent a serious problem that is an emergency. Do not wait to see if the symptoms will go away. Get medical help right away. Call your local emergency services (911 in the [place] Summary Know the symptoms of hypoglycemia, and when you are at risk for it (such as during exercise or whenyou are sick). Check your blood glucose often when you are at risk for hypoglycemia. Hypoglycemia can develop quickly, and it can be dangerous if it is not treated right away. If you have a history of severe hypoglycemia, make sure you know how to use your glucagon injection kit. Make sure you know how to treat hypoglycemia. Keep a carbohydrate snack available when you may be at risk for hypoglycemia. This information is not intended to replace advice given to you by your health care provider. Make sure you discuss any questions you have with your health care provider. Document Released: 07/13/2018 Document Revised: 03/08/2020 Document Reviewed: 07/13/2018 [employer] Patient Education 2020 [employer] 04/09/2022 10:45:16 Hypoglycemia Hypoglycemia Hypoglycemia occurs when the level of sugar (glucose) in the blood is too low. Hypoglycemia can happen in people who do or do not have diabetes. It can develop quickly, and it can be a medical emergency. For most people with diabetes, a blood glucose level below 70 mg/dL (3.9 mmol/L) is considered hypoglycemia. Glucose is a type of sugar that provides the body's main source of energy. Certain hormones (insulin and glucagon) control the level of glucose in the blood. Insulin lowers blood glucose, and glucagon raises blood glucose. Hypoglycemia can result from having too much insulin in the bloodstream, or from not eating enough food that contains glucose. You may also have reactive hypoglycemia, which happens within 4 hours after eating a meal. What are the causes? Hypoglycemia occurs most often in people who have diabetes and may be caused by: Diabetes medicine. Not eating enough, or not eating often enough. Increased physical activity. Drinking alcohol on an empty stomach. If you do not have diabetes, hypoglycemia may be caused by: A tumor in the pancreas. Not eating enough, or not eating for long periods at a time (fasting). A severe infection or illness. Certain medicines. What increases the risk? Hypoglycemia is more likely to develop in: People who have diabetes and take medicines to lower blood glucose. People who abuse alcohol. People who have a severe illness. What are the signs or symptoms? Mild symptoms Mild hypoglycemia may not cause any symptoms. If you do have symptoms, they may include: Hunger. Anxiety. Sweating and feeling clammy. Dizziness or feeling light-headed. Sleepiness. Nausea. Increased heart rate. Headache. Blurry vision. Irritability. Tingling or numbness around the mouth, lips, or tongue. A change in coordination. Restless sleep. Moderate symptoms Moderate hypoglycemia can cause: Mental confusion and poor judgment. Behavior changes. Weakness. Irregular heartbeat. Severe symptoms Severe hypoglycemia is a medical emergency. It can cause: Fainting. Seizures. Loss of consciousness (coma). . How is this diagnosed? Hypoglycemia is diagnosed with a blood test to measure your blood glucose level. This blood test isdone while you are having symptoms. Your health care provider may also do a physical exam and review your medical history. How is this treated? This condition can often be treated by immediately eating or drinking something that contains sugar, such as: Fruit juice, 4 6 oz (120 150 mL). Regular soda (not diet soda), 4 6 oz (120 150 mL). Low-fat milk, 4 oz (120 mL). Several pieces of hard candy. Sugar or honey, 1 Tbsp (15 mL). Treating hypoglycemia if you have diabetes If you are alert and able to swallow safely, follow the 15:15 rule: Take 15 grams of a rapid-acting carbohydrate. Talk with your health care provider about how much you should take. Rapid-acting options include: ?Glucose pills (take 15 grams). ?6 8 pieces of hard candy. ?4 6 oz (120 150 mL) of fruit juice. ?4 6 oz (120 150 mL) of regular (not diet) soda. ?1 Tbsp (15 mL) honey or sugar. Check your blood glucose 15 minutes after you take the carbohydrate. If the repeat blood glucose level is still at or below 70 mg/dL (3.9 mmol/L), take 15 grams of a carbohydrate again. If your blood glucose level does not increase above 70 mg/dL (3.9 mmol/L) after 3 tries, seek emergency medical care. After your blood glucose level returns to normal, eat a meal or a snack within 1 hour. Treating severe hypoglycemia Severe hypoglycemia is when your blood glucose level is at or below 54 mg/dL (3 mmol/L). Severe hypoglycemia is a medical emergency. Get medical help right away. If you have severe hypoglycemia and you cannot eat or drink, you may need an injection of glucagon.A family member or close friend should learn how to check your blood glucose and how to give you a glucagon injection. Ask your health care provider if you need to have an emergency glucagon injection kit available. Severe hypoglycemia may need to be treated in a hospital. The treatment may include getting glucosethrough an IV. You may also need treatment for the cause of your hypoglycemia. Follow these instructions at home: General instructions Take hite-ffh-umelfzv and prescription medicines only as told by your health care provider. Monitor your blood glucose as told by your health care provider. Limit alcohol intake to no more than 1 drink a day for non women and 2 drinks a day for men. One drink equals 12 oz of beer (355 mL), 5 oz of wine (148 mL), or 1 oz of hard liquor (44 mL). Keep all follow-up visits as told by your health care provider. This is important. If you have diabetes: Always have a rapid-acting carbohydrate snack with you to treat low blood glucose. Follow your diabetes management plan as directed. Make sure you: ?Know the symptoms of hypoglycemia. It is important to treat it right away to prevent it from becoming severe. ?Take your medicines as directed. ?Follow your exercise plan. ?Follow your meal plan. Eat on time, and do not skip meals. ?Check your blood glucose as often as directed. Always check before and after exercise. ?Follow your sick day plan whenever you cannot eat or drink normally. Make this plan in advance with your health care provider. Share your diabetes management plan with people in your workplace, school, and household. Check your urine for ketones when you are ill and as told by your health care provider. Carry a medical alert card or wear medical alert jewelry. Contact a health care provider if: You have problems keeping your blood glucose in your target range. You have frequent episodes of hypoglycemia. Get help right away if: You continue to have hypoglycemia symptoms after eating or drinking something containing glucose. Your blood glucose is at or below 54 mg/dL (3 mmol/L). You have a seizure. You faint. These symptoms may represent a serious problem that is an emergency. Do not wait to see if the symptoms will go away. Get medical help right away. Call your local emergency services (911 in the [place] Summary Hypoglycemia occurs when the level of sugar (glucose) in the blood is too low. Hypoglycemia can happen in people who do or do not have diabetes. It can develop quickly, and it can be a medical emergency. Make sure you know the symptoms of hypoglycemia and how to treat it. Always have a rapid-acting carbohydrate snack with you to treat low blood sugar. This information is not intended to replace advice given to you by your health care provider. Make sure you discuss any questions you have with your health care provider. Document Released: 11/15/2006 Document Revised: 05/08/2019 Document Reviewed: 12/18/2016 [employer] Patient Education 2020 [employer]. 04/09/2022 10:45:16 Confusion Confusion Confusion is the inability to think with the usual speed or clarity. People who are confused often describe their thinking as cloudy or unclear. Confusion can also include feeling disoriented. This means you are unaware of where you are or who you are. You may also not know the date or time. When confused, you may have difficulty remembering, paying attention, or making decisions. Some people also act aggressively when they are confused. In some cases, confusion may come on quickly. In other cases, it may develop slowly over time. How quickly confusion comes on depends on the cause. Confusion may be caused by: Head injury (concussion). Seizures. Stroke. Fever. Brain tumor. Decrease in brain function due to a vascular or neurologic condition (dementia). Emotions, like rage or terror. Inability to know what is real and what is not (hallucinations). Infections, such as a urinary tract infection (UTI). Using too much alcohol, drugs, or medicines. Loss of fluid (dehydration) or an imbalance of salts in the body (electrolytes). Lack of sleep. Low blood sugar (diabetes). Low levels of oxygen. This comes from conditions such as chronic lung disorders. Side effects of medicines, or taking medicines that affect other medicines (drug interactions). Lack of certain nutrients, especially niacin, thiamine, vitamin C, or vitamin B. Sudden drop in body temperature (hypothermia). Change in routine, such as traveling or being hospitalized. Follow these instructions at home: Pay attention to your symptoms. Tell your health care provider about any changes or if you develop new symptoms. Follow these instructions to control or treat symptoms. Ask a family member or friend for help if needed. Medicines Take [id number] and prescription medicines only as told by your health care provider. Ask your health care provider about changing or stopping any medicines that may be causing your confusion. Avoid pain medicines or sleep medicines until you have fully recovered. Use a pillbox or an alarm to help you take the right medicines at the right time. Lifestyle Eat a balanced diet that includes fruits and vegetables. Get enough sleep. For most adults, this is 7 9 hours each night. Do not drink alcohol. Do not become isolated. Spend time with other people and make plans for your days. Do not drive until your health care provider says that it is safe to do so. Do not use any products that contain nicotine or tobacco, such as cigarettes and e-cigarettes. If you need help quitting, ask your health care provider. Stop other activities that may increase your chances of getting hurt. These may include some work duties, sports activities, swimming, or bike riding. Ask your health care provider what activities are safe for you. What caregivers can do Find out if the person is confused. Ask the person to state his or her name, age, and the date. If the person is unsure or answers incorrectly, he or she may be confused. Always introduce yourself, no matter how well the person knows you. Remind the person of his or her location. Do this often. Place a calendar and clock near the person who is confused. Talk about current events and plans for the day. Keep the environment calm, quiet, and peaceful. Help the person do the things that he or she is unable to do. These include: ?Taking medicines. ?Keeping follow-up visits with his or her health care provider. ?Helping with household duties, including meal preparation. ?Running errands. Get help if you need it. There are several support groups for caregivers. If the person you are helping needs more support, consider day care, extended care programs, or a [facility] facility. The person's health care provider may be able to help evaluate these options. General instructions Monitor yourself for any conditions you may have. These may include: ?Checking your blood glucose levels, if you have diabetes. ?Watching your weight, if you are overweight. ?Monitoring your blood pressure, if you have hypertension. ?Monitoring your body temperature, if you have a fever. Keep all follow-up visits as told by your health care provider. This is important. Contact a health care provider if: Your symptoms get worse. Get help right away if you: Feel that you are not able to care for yourself. Develop severe headaches, repeated vomiting, seizures, blackouts, or slurred speech. Have increasing confusion, weakness, numbness, restlessness, or personality changes. Develop a loss of balance, have marked dizziness, feel uncoordinated, or fall. Develop severe anxiety, or you have delusions or hallucinations. These symptoms may represent a serious problem that is an emergency. Do not wait to see if the symptoms will go away. Get medical help right away. Call your local emergency services (911 in the [place] Do not drive yourself to the hospital. Summary Confusion is the inability to think with the usual speed or clarity. People who are confused often describe their thinking as cloudy or unclear. Confusion can also include having difficulty remembering, paying attention, or making decisions. Confusion may come on quickly or develop slowly over time, depending on the cause. There are many different causes of confusion. Ask for help from family members or friends if you are unable to take care of yourself. This information is not intended to replace advice given to you by your health care provider. Make sure you discuss any questions you have with your health care provider. Document Released: 12/23/2005 Document Revised: 11/17/2018 Document Reviewed: 11/17/2018 [employer] Patient Education 2020 [employer]. Follow Up Care 04/08/2022 18:33:14 With:Yuki Tim MD, [facility] Address: [address] [place] [id number] Business (1) When:04/16/2022 09:00:00 With:SULEMAN JACKSON Address: [address] [place] [id number] Business (1) When: Unknown Comments:[facility] Appointment Date:02/24/2023 12:30:00 PM Scheduled Provider: Location[facility] [place] Appointment Type:PT 45 () Appointment Date:03/01/2023 11:20:00 AM Scheduled Provider:Natacha Oneill MD [facility] Appointment Type: Open Future Scheduled Tests Radiology* CT Chest w/o High Resolution [facility]08[facility] Future Appointments Appointment Date:03/03/2023 10:15:00 AM Scheduled Provider: [place] [place] Appointment Type:PT 45 (FT) Appointment Date:03/08/2023 10:45:00 AM Scheduled Provider: [place] [place] Appointment Type:PT 45 (FT) Appointment Date:03/10/2023 10:45:00 AM Scheduled Provider: [place] [place] Appointment Type:PT 45 (FT) Appointment Date:03/15/2023 11:30:00 AM Scheduled Provider: [place] [place] Appointment Type:PT 45 (FT) Appointment Date:03/17/2023 10:45:00 AM Scheduled Provider: [place] [place] Appointment Type:PT 45 (FT) Appointment Date:03/22/2023 01:15:00 PM Scheduled Provider: [place] [place] Appointment Type:PT Re-Eval 45 (FT) Appointment Date:03/24/2023 10:45:00 AM Scheduled Provider: [place] [place] Appointment Type:PT 45 (FT) Appointment Date:03/29/2023 12:45:00 PM Scheduled Provider: [place] [place] Appointment Type:PT 45 (FT) Appointment Date:03/31/2023 10:45:00 AM Scheduled Provider: [place] [place] Appointment Type:PT 45 (FT) Appointment Date:04/05/2023 10:45:00 AM Scheduled Provider: [place] [place] Appointment Type:PT 45 (FT) Appointment Date:04/07/2023 10:45:00 AM Scheduled Provider: [place] [place] Appointment Type:PT 45 (FT) Appointment Date:04/12/2023 10:45:00 AM Scheduled Provider: [place] [place] Appointment Type:PT 45 (FT) Appointment Date:04/15/2023 04:30:00 PM Scheduled Provider: [place] [place] Appointment Type:PT Re-Eval 45 (FT) Future Scheduled Tests Radiology* CT Chest w/o High Resolution [facility]08[facility] Future App[facility]ments Appointment Date:03/29/2023 01:30:00 PM Scheduled Provider: [place] [place] Appointment Type:PT Re-Eval 30 (FT) Appointment Date:03/31/2023 10:45:00 AM Scheduled Provider: [place] [place] Appointment Type:PT 45 (FT) Appointment Date:04/05/2023 10:45:00 AM Scheduled Provider: [place] [place] Appointment Type:PT 45 (FT) Appointment Date:04/07/2023 10:45:00 AM Scheduled Provider: [place] [place] Appointment Type:PT 45 (FT) Appointment Date:04/12/2023 10:45:00 AM Scheduled Provider: [place] [place] Appointment Type:PT 45 (FT) Appointment Date:04/15/2023 04:30:00 PM Scheduled Provider: [place] [place] Appointment Type:PT Re-Eval 45 (FT) Future Scheduled Tests Laboratory* B Pertussis and B Parapertussis, DNA 03/22/23 Radiology* CT Chest w/o High Resolution [facility]08[facility] Future Appointments Appointment Date:05/20/2023 03:00:00 PM Scheduled Provider: [place] [place] Appointment Type:PT 45 (FT) Appointment Date:05/25/2023 03:30:00 PM Scheduled Provider: [place] [place] Appointment Type:PT 45 (FT) Appointment Date:05/27/2023 05:15:00 PM Scheduled Provider: [place] [place] Appointment Type:PT 45 (FT) Appointment Date:06/03/2023 03:15:00 PM Scheduled Provider: [place] [place] Appointment Type:PT 45 (FT) Appointment Date:06/07/2023 03:30:00 PM Scheduled Provider: [place] [place] Appointment Type:PT 45 (FT) Appointment Date:06/08/2023 04:15:00 PM Scheduled Provider: [place] [place] Appointment Type:PT Re-Eval 45 (FT) Appointment Date:06/10/2023 03:15:00 PM Scheduled Provider: [place] [place] Appointment Type:PT 45 (FT) Appointment Date:06/14/2023 02:00:00 PM Scheduled Provider: [place] [place] Appointment Type:PT 45 (FT) Appointment Date:06/15/2023 03:00:00 PM Scheduled Provider: [place] [place] Appointment Type:PT 45 (FT) Appointment Date:06/17/2023 03:00:00 PM Scheduled Provider: [place] [place] Appointment Type:PT 45 (FT) Appointment Date:06/21/2023 03:00:00 PM Scheduled Provider: [place] [place] Appointment Type:PT 45 (FT) Appointment Date:06/22/2023 03:15:00 PM Scheduled Provider: [place] [place] Appointment Type:PT 45 (FT) Appointment Date:06/24/2023 03:15:00 PM Scheduled Provider: [place] [place] Appointment Type:PT 45 (FT) Appointment Date:06/28/2023 03:00:00 PM Scheduled Provider: [place] [place] Appointment Type:PT 45 (FT) Appointment Date:06/29/2023 03:00:00 PM Scheduled Provider: [place] [place] Appointment Type:PT 45 (FT) Appointment Date:07/01/2023 02:30:00 PM Scheduled Provider: [place] [place] Appointment Type:PT Re-Eval 45 (FT) Appointment Date:07/05/2023 04:15:00 PM Scheduled Provider: [place] [place] Appointment Type:PT 45 (FT) Appointment Date:07/06/2023 03:00:00 PM Scheduled Provider: [place] [place] Appointment Type:PT 45 (FT) Appointment Date:07/08/2023 03:00:00 PM Scheduled Provider: [place] [place] Appointment Type:PT 45 (FT) Appointment Date:07/12/2023 03:00:00 PM Scheduled Provider: [place] [place] Appointment Type:PT 45 (FT) Appointment Date:07/13/2023 03:00:00 PM Scheduled Provider: [place] [place] Appointment Type:PT 45 (FT) Appointment Date:07/15/2023 03:00:00 PM Scheduled Provider: [place] [place] Appointment Type:PT 45 (FT) Appointment Date:07/20/2023 02:15:00 PM Scheduled Provider: [place] [place] Appointment Type:PT Re-Eval 45 (FT) Future Scheduled Tests Laboratory* B Pertussis and B Parapertussis, DNA 03/22/23 Radiology* CT Chest w/o High Resolution 02[facility]08[facility] Future App[facility]ments Appointment Date:06/14/2023 02:00:00 PM Scheduled Provider: [place] [place] Appointment Type:PT 45 (FT) Appointment Date:06/15/2023 03:00:00 PM Scheduled Provider: [place] [place] Appointment Type:PT 45 (FT) Appointment Date:06/17/2023 03:00:00 PM Scheduled Provider: [place] [place] Appointment Type:PT 45 (FT) Appointment Date:06/21/2023 03:00:00 PM Scheduled Provider: [place] [place] Appointment Type:PT 45 (FT) Appointment Date:06/22/2023 03:15:00 PM Scheduled Provider: [place] [place] Appointment Type:PT 45 (FT) Appointment Date:06/24/2023 03:15:00 PM Scheduled Provider: [place] [place] Appointment Type:PT 45 (FT) Appointment Date:06/28/2023 03:00:00 PM Scheduled Provider: [place] [place] Appointment Type:PT 45 (FT) Appointment Date:06/29/2023 03:00:00 PM Scheduled Provider: [place] [place] Appointment Type:PT 45 (FT) Appointment Date:07/01/2023 02:30:00 PM Scheduled Provider: [place] [place] Appointment Type:PT Re-Eval 45 (FT) Appointment Date:07/05/2023 04:15:00 PM Scheduled Provider: [place] [place] Appointment Type:PT 45 (FT) Appointment Date:07/06/2023 03:00:00 PM Scheduled Provider: [place] [place] Appointment Type:PT 45 (FT) Appointment Date:07/08/2023 03:00:00 PM Scheduled Provider: [place] [place] Appointment Type:PT 45 (FT) Appointment Date:07/12/2023 03:00:00 PM Scheduled Provider: [place] [place] Appointment Type:PT 45 (FT) Appointment Date:07/13/2023 03:00:00 PM Scheduled Provider: [place] [place] Appointment Type:PT 45 (FT) Appointment Date:07/15/2023 03:00:00 PM Scheduled Provider: [place] [place] Appointment Type:PT 45 (FT) Appointment Date:07/20/2023 02:15:00 PM Scheduled Provider: [place] Appointment Type:PT Re-Eval 45 (FT) Future Scheduled Tests Laboratory* B Pertussis and B Parapertussis, DNA 03/22/23 Radiology* CT Chest w/o High Resolution 02[facility]08[facility] App[facility]ments Appointment Date:10/04/2023 09:40:00 AM Scheduled Provider:Natacha Oneill MD [facility] Appointment Type: Open Appointment Date:10/28/2023 11:40:00 AM Scheduled Provider:Natacha Oneill MD [facility] Appointment Type: Open Appointment Date:08/08/2024 11:00:00 AM Scheduled Provider: [facility] Appointment Type:FM Medicare Wellness Subsequent Future Scheduled Tests Laboratory* B Pertussis and B Parapertussis, DNA 03/22/23 Radiology* CT Chest w/o High Resolution 02/08[facility] Future App[facility]ments Appointment Date:11/08/2023 02:40:00 PM Scheduled Provider:Natacha Oneill MD Location[facility] Appointment Type: Open Appointment Date:08/08/2024 11:00:00 AM Scheduled Provider: [facility] Appointment Type:FM Medicare Wellness Subsequent Future Scheduled Tests Laboratory* B Pertussis and B Parapertussis, DNA 03/22/23 Radiology* CT Chest w/o High Resolution 02/08/[facility] Future App[facility]ments Appointment Date:02/07/2024 01:00:00 PM Scheduled Provider:Natacha Oneill MD Location:[facility] Appointment Type: Open Appointment Date:08/08/2024 11:00:00 AM Scheduled Provider: Location:[facility] Appointment Type:FM Medicare Wellness Subsequent Future Scheduled Tests Laboratory* B Pertussis and B Parapertussis, DNA 03/22/23 Radiology* CT Chest w/o High Resolution 02/08/[facility] Future Appointments Appointment Date:04/11/2024 10:15:00 AM Scheduled Provider:Natacha Oneill MD Location:[facility] Appointment Type: Open Appointment Date:08/08/2024 11:00:00 AM Scheduled Provider: Location:[facility] Appointment Type:FM Medicare Wellness Subsequent Future Scheduled Tests Laboratory* B Pertussis and B Parapertussis, DNA 03/22/23 Radiology* CT Chest w/o High Resolution 02/08/[facility] Future Appointments Appointment Date:04/11/2024 10:15:00 AM Scheduled Provider:Natacha Oneill MD Location:[facility] Appointment Type: Open Appointment Date:08/08/2024 11:00:00 AM Scheduled Provider: Location:[facility] Appointment Type:FM Medicare Wellness Subsequent Future Scheduled Tests Laboratory* B Pertussis and B Parapertussis, DNA 03/22/23 * UA With Cult Reflex 01/17/24 Radiology* CT Chest w/o High Resolution 02/08[facility] Future Appointments Appointment Date:07/06/2024 10:45:00 AM Scheduled Provider:Natacha Oneill MD Location:[facility] Appointment Type: Open Appointment Date:08/08/2024 11:00:00 AM Scheduled Provider: Location:[facility] Appointment Type:FM Medicare Wellness Subsequent Future Scheduled Tests Laboratory* UA [facility] Appointment Date:07/06/2024 10:45:00 AM Scheduled Provider:Natacha Oneill MD Location:[facility] Appointment Type: Open Appointment Date:08/08/2024 11:00:00 AM Scheduled Provider: Location:[facility] Appointment Type:FM Medicare Wellness Subsequent Diagnostic Tests Pending * Urine Culture 05/02/24 Future Scheduled Tests Laboratory* UA With Cult Reflex [facility] Future App[facility]ments Appointment Date:07/06/2024 10:45:00 AM Scheduled Provider:Natacha Oneill MD Location:[facility] Appointment Type: Open Appointment Date:08/08/2024 11:00:00 AM Scheduled Provider: Location:[facility] Appointment Type:FM Medicare Wellness Subsequent Diagnostic Tests Pending * Urine Culture [facility]16[facility] App[facility]ments Appointment Date:08/08/2024 10:45:00 AM Scheduled Provider:Ntaacha Oneill MD [facility] App[facility] Type: Open Appointment Date:08/08/2024 11:00:00 AM Scheduled Provider: Location[facility] Appointment Type: Medicare Wellness Subsequent [facility] + Plan note Future Appointments Appointment Date:08/14/2024 09:20:00 AM Scheduled Provider: Location:[facility] Appointment Type: Lab Draw Appointment Date:02/06/2025 10:00:00 AM Scheduled Provider:Natacha Oneill MD Location:[facility] Appointment Type: Open Appointment Date:08/14/2025 11:00:00 AM Scheduled Provider: Location:[facility] Appointment Type: Medicare Wellness Subsequent [facility] [employer] + Plan note Future Appointments Appointment Date:02/06/2025 10:00:00 AM Scheduled Provider:Natacha Oneill MD Location:[facility] Appointment Type: Open Appointment Date:08/14/2025 11:00:00 AM Scheduled Provider: Location:[facility] Appointment Type: Medicare Wellness Subsequent [facility]* Diagnosis SDH (subdural hematoma) ([facility])- Primary Subdural hemorrhage SAH (subarachnoid hemorrhage) ([facility]) Subarachnoid hemorrhage SDH (subdural hematoma) ([facility]) Subdural hemorrhage Difficulty walking Difficulty in walking Multiple falls SAH (subarachnoid hemorrhage) ([facility]) [facility]arachnoid [facility] Candidiasis of vulva and vagina [facility] Diagnosis Type 2 diabetes mellitus with hyperglycemia, with long-term current use of insulin ([facility])- Primary Insulin long-term use ([facility]) Encounter for long-term (current) use of insulin Encounter for dietary consultation Vitamin D deficiency Hyperlipemia, mixed ([facility]) Mixed hyperlipidemia Hypoglycemia Hypoglycemia, unspecified [facility]* Diagnosis Type 2 diabetes mellitus with hyperglycemia, with long-term current use of insulin ([facility])- Primary [facility]* Diagnosis Chronic cough- Primary Cough ILD (interstitial lung disease) (CMS/HCC) Postinflammatory pulmonary fibrosis Bronchiectasis without acute exacerbation ([facility]) Bronchiectasis without acute exacerbation [facility]* Diagnosis Type 2 diabetes mellitus with hyperglycemia, with long-term current use of insulin ([facility])- Primary Insulin long-term use ([facility]) Encounter for long-term (current) use of insulin Encounter for dietary consultation Vitamin D deficiency Hyperlipemia, mixed ([facility]) Mixed hyperlipidemia Hypoglycemia Hypoglycemia, unspecified [facility]* Diagnosis Chronic cough- Primary Cough ILD (interstitial lung disease) (HCC) Postinflammatory pulmonary fibrosis Bronchiectasis without acute exacerbation (HCC) Bronchiectasis without acute exacerbation documented in [facility] encounter [facility]* Diagnosis Chronic cough Cough documented in this encounter [facility]* Diagnosis Type 2 diabetes mellitus with hyperglycemia, with long-term current use of insulin ([facility])- Primary Insulin long-term use ([facility]) Encounter for long-term (current) use of insulin Encounter for dietary consultation Vitamin D deficiency Hyperlipemia, mixed Mixed hyperlipidemia Hypoglycemia Hypoglycemia, unspecified documented in this encounter [facility]* Diagnosis Chronic cough- Primary Cough ILD (interstitial lung disease) (HCC) Postinflammatory pulmonary fibrosis documented in [facility] encounter [facility] noteNo assessment information availableMagruder Memorial Hospital Work Phone: Hospital course Narrative No data available for this section [facility] No data available for this section [facility] No data available for this section [facility] HospitalReason for referral (narrative)No reason for referral information availableMagruder Memorial Hospital Work Phone: Summary Purpose Family History No Family History Records FoundNo Family History Records Found No data available for this section No data available for this section No data available for this section No data available for this section No data available for this section No data available for this section No Family History Records Found No data available for this section No data available for this section No data available for this section No Family History Records FoundNo Family History Records Found No data available for this section No Family History Records FoundNo Family History Records Found No data available for this section No Family History Records FoundNo Family History Records FoundNo Family History Records FoundNo Family History Records FoundNo Family History Records FoundNo Family History Records FoundNo Family History Records FoundNo Family History Records FoundNo Family History Records FoundNo Family History Records FoundNo Family History Records FoundNo Family History Records FoundNo Family History Records FoundNo Family History Records FoundNo Family History Records FoundNo Family History Records FoundNo Family History Records FoundNo Family History Records FoundNo Family History Records FoundNo Family History Records FoundNo Family History Records FoundNo Family History Records FoundNo Family History Records FoundNo Family History Records FoundNo Family History Records FoundNo Family History Records FoundNo Family History Records FoundNo Family History Records FoundNo Family History Records FoundNo Family History Records FoundNo Family History Records FoundNo Family History Records FoundNo Family History Records FoundNo Family History Records FoundNo Family History Records FoundNo Family History Records FoundNo Family History Records FoundNo Family History Records FoundNo Family History Records FoundNo Family History Records FoundNo Family History Records FoundNo Family History Records FoundNo Family History Records FoundNo Family History Records FoundNo Family History Records FoundNo Fa aless[place] History Records FoundNo Family History Records FoundNo Family History Records FoundNo Family History Records FoundNo Family History Records FoundNo Family History Records Found No data available for this section No Family History Records FoundNo Family History Records FoundNo Family History Records FoundNo Family History Records FoundNo Family History Records FoundNo Family History Records FoundNo Family History Records FoundNo Family History Records FoundNo Family History Records FoundNo Family History Records FoundNo Family History Records FoundNo Family History Records FoundNo Family History Records FoundNo Family History Records FoundNo Family History Records FoundNo Family History Records FoundNo Family History Records Found No data available for this section No Family History Records FoundNo Family History Records FoundNo Family History Records Found No data available for this section No data available for this section No Family History Records FoundNo Family History Records FoundNo Family History Records FoundNo Family History Records FoundNo Family History Records Found Advance Directives Code StatusDate ActivatedDate InactivatedCommentsFull Code01/03/2024 5:17 AM QuestionAnswerCommentsDocumentation of decision process for this code status: Discussed with patient or surrogate. This is the code status chosen by the patient/surrogate. Advance Directive Response Recorded Date/ Time Advance Directives No October 03, 2025 11:36am Reason for Referral SpecialtyDiagnoses / ProceduresReferred By ContactReferred To ContactRadiology Diagnoses SDH (subdural hematoma) (HCC) Procedures CT HEAD W/O CONTRAST Nely [place] [address] Referral IDStatusReasonStcobbs creek DateExpiration DateVisits RequestedVisits [id number]/ Chief Complaint and Reason for Visit Chief Complaint Admit Date SB/AL ASHLEY CH/SC October 03, 2025 1 1:37am Additional Source Comments INFORMATION SOURCE (unrecogn ized section and content) DATE CREATED AUTHOR 01/16/2019 [facility] DATE CREATED AUTHOR AUTHOR'S ORGANIZ ATION 04/08/2023 [facility] DATE CREATED AUTHOR AUTHOR'S ORGANIZ ATION 01/14/2024 [facility] DATE CREATED AUTHOR AUTHOR'S ORGANIZ ATION 05/05/2024 [facility] DATE CREATED AUTHOR AUTHOR'S ORGANIZ ATION 05/17/2024 [facility] DATE CREATED AUTHOR AUTHOR'S ORGANIZ ATION 05/18/2024 [facility] DATE CREATED AUTHOR AUTHOR'S ORGANIZ ATION 05/19/2024 [facility] DATE CREATED AUTHOR AUTHOR'S ORGANIZ ATION 06/19/2024 [facility] DATE CREATED AUTHOR AUTHOR'S ORGANIZ ATION 06/20/2024 [facility] DATE CREATED AUTHOR AUTHOR'S ORGANIZ ATION 06/21/2024 [facility] DATE CREATED AUTHOR AUTHOR'S ORGANIZ ATION 06/22/2024 [facility] DATE CREATED AUTHOR AUTHOR'S ORGANIZ ATION 06/23/2024 [facility] DATE CREATED AUTHOR AUTHOR'S ORGANIZ ATION 08/11/2024 [facility] DATE CREATED AUTHOR AUTHOR'S ORGANIZ ATION 08/16/2024 [facility] DATE CREATED AUTHOR AUTHOR'S ORGANIZ ATION 08/17/2024 [facility] DATE CREATED AUTHOR AUTHOR'S ORGANIZ ATION 12/20/2024 [facility] DATE CREATED AUTHOR AUTHOR'S ORGANIZ ATION 08/14/2025 [facility] DATE CREATED AUTHOR AUTHOR'S ORGANIZ ATION 09/28/2025 [facility] DATE CREATED AUTHOR AUTHOR'S ORGANIZ ATION 09/29/2025 [facility] DATE CREATED AUTHOR AUTHOR'S ORGANIZ ATION 09/29/2025 [facility] Patient Care team informatio n (unrecognized section and content) Team MemberRelationshipSpecialtyStart DateEnd Date Natacha Oneill MD PCP - GeneralFamily Medicine02/16/24Team MemberRelationshipSpecialtyStart DateEnd Date Natacha Oneill MD PCP - GeneralFamily Medicine02/16/24Team MemberRelationshipSpecialtyStart DateEnd Date Natacha Oneill MD PCP - GeneralFamily Medicine02/16/24Team MemberRelationshipSpecialtyStart DateEnd Date Natacha Oneill MD [address] [place] [address] PCP - GeneralFamily Medicine02/19/25 Kay Huerta PA [address] [address] Physician AssistantNeurology02/19/25Team MemberRelationshipSpecialtyStart DateEnd Date Natacha Oneill MD [address] [place] [address] PCP - GeneralFamily Medicine02/19/25 Kay Huerta PA [address] [place] [address] Physician AssistantNeurology02/19/25Team MemberRelationshipSpecialtyStart DateEnd Date Natacha Oneill MD [address] [facility] [place] [address] PCP - GeneralChanning Home Medicine02/19/25 Kay Huerta PA [address] [place] [address] Physician AssistantNeurology02/19/25Team MemberRelationshipSpecialtyStart DateEnd Date Natacha Oneill MD [address] [place] [address] PCP - GeneralChanning Home Medicine02/19/25 Kay Huerta PA [address] [place] [address] Physician AssistantNeurology02/19/25Team MemberRelationshipSpecialtyStart DateEnd Date Natacha Oneill MD [address] [facility] [place] [address] PCP - GeneralChanning Home Medicine02/19/25 Kay Huerta PA [address] [place] [address] Physician AssistantNeurology02/19/25Team MemberRelationshipSpecialtyStart DateEnd Date Natacha Oneill MD [address] [place] [address] PCP - GeneralFamily Medicine02/19/25 Kay Huerta PA [address] [place] [address] Physician AssistantNeurology02/19/25Team MemberRelationshipSpecialtyStart DateEnd Date Natacha Oneill MD [address] [facility] [place] [address] PCP - GeneralFamily Medicine02/19/25 Kay Huerta PA [address] [place] [address] Physician AssistantNeurology02/19/25Team MemberRelationshipSpecialtyStart DateEnd Date Natacha Oneill MD [address] [place] [address] PCP - GeneralFamily Medicine02/19/25 Kay Huerta PA [address] [place] [address] Physician AssistantNeurology02/19/25Team MemberRelationshipSpecialtyStart DateEnd Natacha Oneill MD [address] [facility] [place] [address] PCP - GeneralFamily Medicine02/19/25 Kay Huerta PA [address] [place] [address], [place] [address] Physician AssistantNeurology02/19/25Team MemberRelationshipSpecialtyStart DateEnd Date Natacha Oneill MD [address] [place] [id number] PCP - GeneralFamily Medicine02/19/25 Kay Huerta PA [address] [place] [address] Physician AssistantNeurology02/19/25 Team Status: Active Member Role/Relationship Status Dates NON STAFF Primary Care Provider Active Team Status: Inactive Member Role/Relationship Status Dates Lauren Langston APRN-SUPERVISOR CD AREA-C Attending Provider Active Start: October 03, 2025 End: October 03, 2025NON STAFFPrimary Care ProviderActiveStart: October 03, 2025 End: October 03, 2025 Reason for Visit (unrecogniz ed section and content) SpecialtyDiagnoses / ProceduresReferred By ContactReferred To ContactCase Management Diagnoses Subdural and interparenchymal head bleed Procedures NA [employer] [place] [address] Phone: [phone] [place] [address] Phone: [phone] Referral IDStatusReasonStart DateExpiration DateVisits RequestedVisits [id number] RefillReasonCommentsDiabetes Mellitus Follow-upReasonCommentsRecurrent PneumoniaConsultationEmphysemaConsultation OdixduVhfumhqzExswhhruCboncb-uyYdqbfzQqiexwfoZtjneiwaQyeyup-rpMVRXwqrdrVynpxciq Cough2 month follow up Scheduled Active and Recently Administ ered Medications (unrecognized section and content) Medication Order//05/2024 acetaminophen (TYLENOL) tablet 650 mg, Oral, Every 6 hours, First dose (after last modification) on Wed01/04/24 at 1130, Until Discontinued * 1130 (Hold/Not Given - Provider: Kevin Ortega RN - Reason: Not indicated) * 1736 (Given - Provider: Charissa Brownlee LPN) * 2330 (Hold/Not Given - Provider: Kacey Morillo LPN - Reason: Patient sleeping) * 0530 (Hold/Not Given - Provider: Kacey Morillo LPN - Reason: Patient sleeping) * 1130 (Hold/Not Given - Provider: Kevin Ortega RN - Reason: Not indicated) * 1730 (Hold/Not Given - Provider: Kevin Ortega RN - Reason: Not indicated) * 2330 (Due) amitriptyline (ELAVIL) tablet 10 mg, Oral, AT BEDTIME, First dose on Wed01/04/24 at 2200, Until Discontinued * 2100 (Given - Provider: Kacey Morillo LPN) * 2200 (Due) atorvastatin (LIPITOR) tablet 10 mg, Oral, AT BEDTIME, First dose on Wed01/03/24 at 2200, Until Discontinued * 2120 (Given - Provider: Sharmin Feliciano) * 2100 (Given - Provider: Kacey Morillo LPN) * 0 (Due) hydrALAZINE (APRESOLINE) 10 mg in sodium chloride 0.9 % 50 mL IVPB (COMPLETED) 10 mg, Intravenous, Once, 1 dose, On Wed01/04/24 at 0600 * 0559 (IV New Bag - Provider: Sharmin Feliciano) insulin glargine (LANTUS SOLOSTAR/BASAGLAR KWIKPEN) 100 UNIT/ML PEN injection 10 Units, Subcutaneous, AT BEDTIME, First dose on Wed01/04/24 at 2200, Until Discontinued * 2100 (Given - Provider: Kacey Morillo LPN) * 220 (Due) insulin lispro (HumaLOG) 100 UNIT/ML injection 1-5 Units, Subcutaneous, 3 TIMES DAILY BEFORE MEALS, First dose on Wed01/04/24 at 1700, Until Discontinued * 1700 (Hold/Not Given - Provider: Charissa Brownlee LPN - Reason: Clinical contraindications - Comment: blood sugar <150) * 0800 (Hold/Not Given - Provider: Kevin Ortega RN - Reason: Not indicated) * 1212 (Given - Provider: Charissa Brownlee LPN) * 1700 (Hold/Not Given - Provider: Kevin Ortega RN - Reason: Not indicated) insulin regular (HumuLIN R) 100 UNIT/ML injection (CANCELED) 2-12 Units, Subcutaneous, EVERY 6 HOURS, First dose on Wed01/03/24 at 0600, Until Discontinued * 0600 (Hold/Not Given - Provider: Amadou Baez RN - Reason: Not indicated) * 1237 (Given - Provider: Bev Christina RN) * 1758 (Given - Provider: Bev Christina RN) * 1858 (MAR Hold - Provider: Guerline Portillo - Reason: Patient Transfer) * 2026 (MAR Unhold - Provider: Ramsey Esquivel DO) levETIRAcetam (KEPPRA) tablet 750 mg 750 mg, Oral, 2 TIMES DAILY, 14 doses, First dose on Wed01/03/24 at 2100, Last dose on Wed01/10/24 at 0900 * 2107 (Given - Provider: Sharmin Feliciano) * 0938 (Given - Provider: Kevin Ortega RN) * 2099 (Given - Provider: Kacey Morillo LPN) * 918 (Given - Provider: Charissa Brownlee LPN) * 2100 (Due) levETIRAcetam in NaCl 0.82% 100mL (KEPPRA) ivpb 500 mg 100 mL (CANCELED) 500 mg, Intravenous, EVERY 12 HOURS, First dose on Wed01/03/24 at 0600, Until Discontinued, at 400 mL/hr * 0619 (IV New Bag - Provider: Amadou Baez RN) miconazole (MICONAZORB AF) 2 % powder Topical, 2 TIMES DAILY, First dose on Wed01/03/24 at 1400, Until Discontinued * 163 (Given - Provider: Bev Christina RN) * 2113 (Given - Provider: Sharmin Feliciano) * 0942 (Given - Provider: Kevin Ortega RN) * 2099 (Given - Provider: Kacey Morillo LPN) * 09 (Given - Provider: Charissa Brownlee LPN) * 2100 (Due) petrolatum-zinc oxide (SENSI-CARE) 49-15 % ointment Topical, 2 times daily, First dose on Wed01/03/24 at 1230, Until Discontinued * 163 (Given - Provider: Bev Christina RN) * 2108 (Given - Provider: Sharmin Feliciano) * 0942 (Given - Provider: Kevin Ortega RN) * 2100 (Given - Provider: Kacey Morillo LPN) * 0900 (Given - Provider: Charissa Brownlee LPN) * 2100 (Due) propranolol tablet 30 mg 30 mg, Oral, 2 TIMES DAILY, First dose (after last modification) on Wed01/04/24 at 0830, Until Discontinued * 0939 (Given - Provider: Kevin Ortega RN) * 2100 (Given - Provider: Kacey Morillo LPN) * 0919 (Given - Provider: Charissa Brownlee LPN) * 2100 (Due) Medication Order// sodium chloride 0.9 % iv infusion (CANCELED) Intravenous, at 75 mL/hr, CONTINUOUS, Starting on Wed01/03/24 at 0600, Until Wed01/03/24 at 1207 * 0619 (IV New Bag - Provider: Amadou Baez RN) * 1250 (IV Stop - Provider: Bev Christina RN) Medication Order// acetaminophen (TYLENOL) tablet (CANCELED) 650 mg, Oral, EVERY 6 HOURS PRN, Starting on Wed01/03/24 at 0804, Until Wed01/04/24 at 1021, Mild Pain (pain score 1,2,3) * 0832 (Given - Provider: Bev Christina RN) * 1831 (Given - Provider: Bev Christina RN) * 0510 (Given - Provider: Sharmin Feliciano) albuterol (PROVENTIL HFA) 108 (90 Base) MCG/ACT HFA inhaler 2 Puff, Inhalation, EVERY 4 HOURS PRN, Starting on Wed01/03/24 at 1230, Until Discontinued, Shortness of Breath, Wheezing dextrose (GLUTOSE) 40 % oral gel(Linked Group 1) 15 g of glucose, Buccal, PRN, Starting on Wed01/03/24 at 0516, Until Discontinued, blood glucose between 50 - 69 mg/dL, and with no IV access, alert and able to swallow. dextrose (GLUTOSE) 40 % oral gel(Linked Group 1) 30 g of glucose, Buccal, PRN, Starting on Wed01/03/24 at 0516, Until Discontinued, blood glucose of 49mg/dL or less, and with no IV access, alert and able to swallow. dextrose 10 % iv infusion(Linked Group 1) 125 mL, Intravenous, at 999 mL/hr, PRN, Starting on Wed01/03/24 at 0516, Until Discontinued, For blood glucose less than 70 mg/dL, with IV access and with loss of consciousness or unable to swallow orNPO docusate sodium (COLACE) capsule 100 mg, Oral, 2 TIMES DAILY PRN, Starting on Wed01/04/24 at 0743, Until Discontinued, Constipation glucagon (GLUCAGEN) 1 MG injection(Linked Group 1) 1 mg, Subcutaneous, PRN, Starting on Wed01/03/24 at 0516, Until Discontinued, For blood glucose lessthan 70 mg/dL and with no IV access with loss of consciousness or alert and unable to swallow. ibuprofen (MOTRIN) tablet (CANCELED) 400 mg, Oral, EVERY 4 HOURS PRN, Starting on Wed01/04/24 at 0733, Until Wed01/04/24 at 1021, Mild Pain (pain score 1,2,3) * 0939 (Given - Provider: Kevin Ortega RN) ondansetron (ZOFRAN) 4 MG/2ML injection 4 mg, Intravenous Push, EVERY 6 HOURS PRN, Starting on Wed01/03/24 at 1951, Until Discontinued, Nausea, Vomiting * 0702 (Given - Provider: Sharmin Feliciano) senna (SENOKOT) tablet 8.6 mg, Oral, AT BEDTIME PRN, Starting on Wed01/04/24 at 0743, Until Discontinued, Constipation tramadol (ULTRAM) tablet 50 mg, Oral, EVERY 6 HOURS PRN, Starting on Wed01/04/24 at 1021, Until Discontinued, Moderate Pain (pain score 4,5,6) * 1129 (Given - Provider: Kevin Ortega RN) Order Group 1: dextrose 10 % iv infusionJump to med 125 mL, Intravenous, at 999 mL/hr, PRN, Starting on Wed01/03/24 at 0516, Until Discontinued, For blood glucose less than 70 mg/dL, with IV access and with loss of consciousness or unable to swallow orNPO Or glucagon (GLUCAGEN) 1 MG injectionJump to med 1 mg, Subcutaneous, PRN, Starting on Wed01/03/24 at 0516, Until Discontinued, For blood glucose lessthan 70 mg/dL and with no IV access with loss of consciousness or alert and unable to swallow. Or dextrose (GLUTOSE) 40 % oral gelJump to med 15 g of glucose, Buccal, PRN, Starting on Wed01/03/24 at 0516, Until Discontinued, blood glucose between 50 - 69 mg/dL, and with no IV access, alert and able to swallow. Or dextrose (GLUTOSE) 40 % oral gelJump to med 30 g of glucose, Buccal, PRN, Starting on Wed01/03/24 at 0516, Until Discontinued, blood glucose of 49mg/dL or less, and with no IV access, alert and able to swallow. Goals (unrecognized section and content) Goals may be documented in a n alternate section FOR RECORDS PERTAINING TO PATIENTS WHO ARE OR HAVE BEEN ENROLLED IN A CHEMICAL DEPENDENCY/SUBSTANCEABUSE PROGRAM, SOME INFORMATION MAY BE OMITTED. This clinical summary was aggregated from multiple sources. Caution should be exercised in using it in the provision of clinical care. This summary normalizes information from multiple sources, and as a consequence, information in this document may materially change the coding, format and clinical context of patient data. In addition, data may be omitted in some cases. CLINICAL DECISIONS SHOULD BE BASED ON THE PRIMARY CLINICAL RECORDS. [employer] provides no warranty or guarantee of the accuracy or completeness of information in this document.
[2025-10-04 13:52] LABS: Anion Gap 14.0; Carbon Dioxide 26.2 mmol/L (21.0-32.0); Chloride 101 mmol/L (98-107); Magnesium 1.9 mg/dL (1.8-2.4); Potassium 4.2 mmol/L (3.5-5.1); Sodium 137 mmol/L (136-145)
== END 2025-10-04 12:29 | disposition home or self-care (01) ==
LOC: LAB 12:31
PROVIDERS: Visit Provider Nurse Practitioner Family
DX: R25.2 Cramp and spasm (principal)
CPT/HCPCS: 36415; 80051; 82553; 83735; 83874

== ENCOUNTER 2025-10-17 16:53 | Observation (INO) | payer MEDICARE, BC, SELFPAY ==
--- OUTSIDE RECORDS SUMMARY | 2025-10-03 07:35 | XMS_ITS | Continuity of Care Document ---
Author Organization [facility] Address [address] [place] [address] Phone Care Team Providers Care Paper Twister Tender Name Role Phone Lauren Langston Attending Provider + NON STAFF Primary Care Provider Unavailmoriah e Care Teams Patient Care Team Team Status: Active Member Role/Relationship Status Dates NON STAFF Primary Care Provider Active Patient Care Team Team Status: Inactive Member Role/Relationship Status Dates YULISSA Stratton Attending Provider Active Start: October 03, 2025 End: October 03, 2025NON STAFFPrimary Care ProviderActiveStart: October 03, 2025 End: October 03, 2025 Chief Complaint and Reason for Visit Chief Complaint Admit Date SB/AL ASHLEY CH/SC October 03, 2025 1 1:37am Allergies, Adverse Reactions, Alerts Allergen Type Severity Reaction Last Updated Verified Status No Known Allergies Allergy Unknown October 03, 2025 11:44amYesActive Social History Smoking Status Status Start Date End Date Date of Observa tion Ex-smoker (finding) October 03, 2025 12:00pm Observation Status Observation Response Date of Response Legal Sex Female (finding) Sex Assigned At [facility] 1939 Medications Medication Status Dose Units Route Directions Qty Days Refills S tart Date Stop Date End Date Reason(s) Instructions Adherence Losartan 50 mg tablet Active 50 MG PO Daily October 03, 2025 12:00amComplies with drug therapyTrazodone 50 mg tabletActive 25MGPODaily at bedtimeOctober 03, 2025 12:00amComplies with drug therapy Trazodone 50 mg jtujvdIxhmdj59NCMIVlcee at bedtimeOctober 03, 2025 12:00am Complies with drug therapyAtorvastatin 10 mg wgvxjuQackjn19VFHXAfszvQqfkwrdn 5th, 2025 12:00amComplies with drug therapyTizanidine 4 mg iniwowIzkyjo8PIJU Daily at bedtimeOctober 03, 2025 12:00amComplies with drug therapyPropranolol 60 mg kpaftyElmeez67IFNFWoskh at bedtimeOctober 03, 2025 12:00amComplies with drug therapyAspirin 81 mg tablet,delayed release (DR/EC)Bnfzvx31ZAHYBieip October 03, 2025 12:00amComplies with drug therapyNaproxen Sodium (Aleve) 220 mg miucpdZilmde824DOKTOnjdm at bedtime as neededOctober 03, 2025 12:00am Complies with drug therapyOmeprazole 20 mg capsule,delayed release(DR/EC)Active 20MGPOTwice dailyOctober 03, 2025 12:00amComplies with drug therapy Polyethylene Glycol 3350 (Miralax) 17 gram/dose fhcoksUbjjmv37GJNAUleru as neededOctober 03, 2025 12:00amComplies with drug therapy Pebfmhblwdfd-Ydnzdnxi-Ehzdqn gmhhkcCqcsxd3JGJNA.COMPLEXOctober 03, 2025 12:00am1 tab orally; 3 times a weekComplies with drug therapyInsulin Lispro (Humalog Kwikpen Insulin) 100 unit/mL insulin vokIxpvet781FHJMVJVHBGMucpf times dailyOctober 03, 2025 12:00amComplies with drug therapyIbandronate 150 mg tyojvfNukuno454FRZFuasnj 2024 12:00amComplies with drug therapyVitamins A,C,H-Nxov-Krgbba (Preservision Areds) 4,296 mcg-226 mg-90 mg vszzkvyYtxikz8FCZUIItfsp dailyOctober 03, 2025 12:00amComplies with drug therapyInsulin Glargine (Lantus Solostar U-100 Insulin) 100 unit/mL (3 mL) insulin xtjVkyffc15WBCQWRWFSLKnpoc 2024 12:00amComplies with drug therapyCetirizine (Zyrtec) 10 mg dwvbafbYjguby05AXCSZbcml as neededOctober 03, 2025 12:00amComplies with drug therapyGlucagon (Gvoke) 1 mg/0.2 mL solution Tggbgk7MOBOZNYIB76D as neededOctober 03, 2025 12:00amuntil target blood sugar attainedComplies with drug therapy Vital Signs Vital Reading Result Reference Range Collection Date/Time Height 60 [in_i] October 03, 2025 11:62yjSijdjx79.50 kgOctober 03, 2025 11:40amHeart Rate67 /yqf07-253NkuhhnesOctober 03, 2025 11:40amRespiratory rate18 /bxz59-89MvconihtOctober 03, 2025 11:40amOxygen saturation by Pulse iqlcwkdg16 %95-100October 03, 2025 11:40amBP Akbshztp331 mm[Hg]100-140October 03, 2025 11:40amBP Wtsykpjkf60 mm[Hg]60-100October 03, 2025 11:40amBMI (Body Mass Index)27.3 kg/y2RvqurkcfOctober 03, 2025 11:40am Advance Directives Advance Directive Response Recorded Date/ Time Advance Directives No October 03, 2025 11:36am Insurance Providers Guarantor Michelle Luke Savanah Address [address] [place], [place] [address]Contact Info.Home Phone: Coverage Status Update:2025 Payer Group Member ID Coverage Type Subscriber Relationship to Subscriber Effective Date Expiration Date Nicola FOWLER/DAMARIS Id: [id number] K Savanah Id: [id number] [address] [place], [place] [address] Home Phone: Email: [facility] [id number] [id number] A Savanah Id: [id number] [place] [phone] Home Phone: SelfMedicare Outpatient [id number]: [id number] [address] [place] [phone] Home Phone: Self Encounters Encounter Location(s) Arrival/Admit Date Discharge/Departure Date Discharge/Departure Disposition Provider(s) Departed Physician/ Provider Office Visit -[facility] [place] October 03, 2025 11:37am October 03, 2025 12:34pm Discharged to home care or self care (routine discharge) Lauren E Langston , MOLD DRESSER-LOW VOLTAGE ELECTRICIAN-C Plan of Treatment Author Makenzie Hester [facility] CenterAuthoredNovember 2024 4:39pmHx of subdural hemorrhage Subarachnoid hemorrhage Patient was seen at [facility] 01/03/2024 after a fall that resulted in SAH vs IPH and 3mm parafalcine SDH. Her blood sugars were 56 and thought to have contributed to her fall. She had repeat head CT at midnight and demonstrated stable parafalcine SDH but the right frontal SAH had bloomed to 1.7 x 1.3cm bleed with surrounding vasogenic edema. She was sent to [facility] ICU for neurosurgery evaluation. Her repeat CT there was stable. She was discharged from [facility] [place] with a short supply of Keppra for seizure prevention. Repeat head CT 04/20/2024 revealed resolution of intracranial hemorrhages from 01/13/2024. She denies any new or worsening symptoms. She denies falls. ?? Transient alteration of awareness Patient was seen at [facility] 04/09/2022 for evaluation of acute encephalopathy due to symptoms of confusion. She has a history of seizure disorder previously on medication approximately 40 years ago and was not on medication at the time of this hospitalization. She was found to have hypoglycemia with blood sugar in the 40s and 50s, which improved with D50. Head CT and brain MRI were nonacute. Routine EEG was mildly abnormal due to intermittent slow generalized activity. Her confusion was attributed to a transient encephalopathy related to hypoglycemia. She had a few episodes of confusion and fluctuations in her sugars. This has improved with treatment of her diabetes. ?? Muscle cramp Bilateral to lower extremities- thighs to calves, usually one side or the other, will wake her up at night, can feel restless when she goes to bed and prevents her from falling asleep, has been ongoing for years. Reports only drinking about 48 ounces of water/day. MG was low at 1.7. She is on atorvastatin which could be contributing, but is a low dose. She also has lumbar radiculopathy on EMG which may also be contributing to her symptoms. She had improvement with zanaflex previously but she is no longer taking. Her symptoms are intermittent. She denies falls. ?? Radiculopathy of lumbar region BLE EMG 01/05/2023 revealed bilateral S1 radiculopathies, mild in degree. She reports a history of multiple back surgeries with Dr. Peryr. She does have intermittent back pain which has not worsened. ? Repeat head CT 04/20/2024: resolved intracranial hemorrhages from 01/13/2024. A small area of encephalomalacia of the inferior right frontal lobe noted at the previous hemorrhagic contusion. BLE EMG 01/05/2023: revealed bilateral S1 radiculopathies, mild in degree. ?? Record review from [facility] and [facility] [place] 01/03/2024: Head CT 01/03/2024: revealed acute intraparenchymal hematoma in the right frontal lobe inferiorly measuring 1.8 x 0.9 cm. Small amount of parafalcine hemorrhagic blood products. Trace subdural hemorrhage along the right and left frontal convexities. On the right side measure up to 4mm. On the left side measures up to 3mm. No midline shift. ? PLAN 1. She is no longer on Zanaflex. 2. Patient declines new medication as her symptoms are intermittent, which is reasonable. If her symptoms worsen or become nightly, consider low dose gabapentin 100mg at night. 3. She was advised to stay hydrated. 4. I counseled the patient on fall precautions. I discussed the high risk of trauma and debility associated with falls. Patient verbalized understanding.? Future Tests Future scheduled test information is unavailable Pending Tests Pending diagnostic test information is unavailable Future Visits Future appointment information is unavailable Future Procedures Future procedure information is unavailable Future Medications Future medication information is unavailable Patient Instructions Patient instructions are unavailable
[2025-10-17] VITALS (9 sets, daily range): BP systolic 158–200; BP diastolic 80–100; PULSE 61–92; TEMP 36.4–36.6; O2SAT 90–97; BMI 25.4; BMI 26.3
--- NOTE | 2025-10-17 17:18 | ECG_ITS ---
[facility] Test Date: 2025-10-17 Pat Name: LAN NASH Department: Room: - Gender: Female Block And Case Maker: : 1940 Requested By: 1030 Order Number: [id number] Reading MD: ZEENAT CHEW M.D. Measurements Intervals [place] Rate: 87 P: 32 TX: 160 QRS: 8 QRSD: 86 T: 18 QT: 360 QTc: 405 Interpretive Statements 1100 Sinus rhythm [address] depression 5211 Minimal voltage criteria for LVH, may be normal variant 9150 abnormal ECG No previous ECG available for comparison Electronically Signed On 10-18-2025 6:04:01 EST by ZEENAT CHEW M.D.
--- NOTE | 2025-10-17 17:18 | XR_ITS ---
[address] [address] Patient Name: LAN NASH MRN: [id number] date: 1940 Sex: F Assigned Patient Location: ER Current Patient Location: ED.MAIN Accession/Order Number: [id number] Exam Date: 10/17/2025 17:45 Report Date: 10/17/2025 18:17 At the request of: YAKELIN BARROS MD Procedure: XR chest 1V Plain film chest Single view HISTORY: Cough and shortness of breath COMPARISON: CT chest 11/28/2024 FINDINGS: SUPPORT DEVICES: None POSTSURGICAL CHANGES: None HEART: Within normal limits PULMONARY ERIKA: Within normal limits MEDIASTINUM: Unremarkable LUNGS AND PLEURA: No acute lung process, pleural effusion or pneumothorax identified. Diffuse fibrotic changes of the lungs. BONY STRUCTURES: Intact ADDITIONAL FINDINGS None XR/XR chest 1V IMPRESSION: No acute process. Similar diffuse lung fibrosis Impression dictated by: Mark Anthony Prieto M.D. 10/17/2025 6:17 PM Dictation Location: [employer] Electronically authenticated by: [id number] Date: 10/17/2025 18:17
--- NOTE | 2025-10-17 17:20 | ED.GENADUL1 ---
HPI HPI - General Adult General Chief complaint: Upper Respiratory Infection Stated complaint: COUGH WEAKNESS Time Seen by Provider: 10/17/25 17:11 Source: family Mode of arrival: Wheelchair History of Present Illness HPI narrative: 84-year-old female presenting for a cough. She has a chronic cough and interstitial lung disease but she developed this cough within the last day or 2. She has been coughing up a small amount of yellow phlegm. She saw her PCP yesterday who put her on doxycycline and Augmentin. She has had 2 doses of each. She was diagnosed with presumed pneumonia. No chest x-ray was performed but negative COVID and influenza test were performed. She has been weak and her appetites been poor. Related Data Home Medications ?Medication ?Instructions ?Recorded ?Confirmed albuterol sulfate 90 mcg/actuation 2 puff inhalation Q6H PRN 10/17/25 10/17/25 aerosol inhaler shortness of breath or wheezing amitriptyline 10 mg tablet 10 mg PO BEDTIME 10/17/25 10/17/25 amoxicillin 875 mg-potassium 1 tab PO BIDWM 10/17/25 10/17/25 clavulanate 125 mg tablet aspirin 81 mg tablet,delayed 81 mg PO DAILY 10/17/25 10/17/25 release (Ecotrin Low Strength) atorvastatin 10 mg tablet 10 mg PO .QHS 10/17/25 10/17/25 benzonatate 100 mg capsule 100 mg PO Q8H PRN cough 10/17/25 10/17/25 doxycycline hyclate 100 mg capsule 100 mg PO Q12H 10/17/25 10/17/25 gabapentin 100 mg capsule 200 mg PO BEDTIME 10/17/25 10/17/25 ibandronate 150 mg tablet 150 mg PO .monthly 10/17/25 10/17/25 insulin glargine 100 unit/mL (3 10 unit subcut BID 10/17/25 10/17/25 mL) subcutaneous pen (Lantus Solostar U-100 Insulin) insulin lispro 100 unit/mL subcut 10/17/25 subcutaneous pen (Humalog KwikPen (U-100) Insulin) losartan 50 mg tablet 50 mg PO DAILY 10/17/25 10/17/25 auasccrk-uwb-sxfl-FA-vit K-lut 1 tab PO .QD 10/17/25 10/17/25 propranolol 60 mg tablet 90 mg PO .Evening 10/17/25 10/17/25 trazodone 50 mg tablet 25 mg PO BEDTIME 10/17/25 10/17/25 vitamins A,C,D-owlp-crcuar 1 tab PO .QD 10/17/25 10/17/25 Allergies Allergy/AdvReac Type Severity Reaction Status Date / Time No Known Drug Allergies Allergy Verified 10/17/25 16:58 Review of Systems ROS Narrative A ten point review of systems is negative except as noted above. PFSH PFSH Social History Little interest or pleasure in doing things: not at all Feeling down, depressed, or hopeless: not at all Exam Narrative Exam Narrative: Nurses note and vital signs reviewed General:The patient appears no acute respiratory distress. She appears fatigued. Skin:Warm, dry, no pallor noted.There is no rash noted. Head:Normocephalic, atraumatic Eye: Normal conjunctiva, no drainage Ears, Nose, Mouth, and Throat: oral mucosa is moist. Nares patent. Cardiovascular:Regular Rate and Rhythm Respiratory: Bilateral rales throughout Back:non-tender GI: Soft and nontender Musculoskeletal: The patient has no evidence of calf tenderness, no pitting edema, symmetrical pulses noted bilaterally Neurological: Awake and alert Psychiatric:Cooperative Constitutional Vital Signs, click to edit/add: Last Vital Signs Temp 97.9 F 10/17/25 16:59 Pulse 92 H 10/17/25 16:59 Resp 20 10/17/25 16:59 BP 195/80 H 10/17/25 18:03 Pulse Ox 95 10/17/25 18:11 O2 Del Method Nasal Cannula 10/17/25 18:11 O2 Flow Rate 2 10/17/25 18:11 Course Vital Signs Vital signs: Vital Signs Temperature 97.9 F 10/17/25 16:59 Pulse Rate 92 H 10/17/25 16:59 Respiratory Rate 20 10/17/25 16:59 Blood Pressure 200/100 H 10/17/25 16:59 Pulse Oximetry 94 L 10/17/25 16:59 Oxygen Delivery Method Room Air 10/17/25 16:59 Temperature 97.9 F 10/17/25 16:59 Pulse Rate 92 H 10/17/25 16:59 Respiratory Rate 20 10/17/25 16:59 Blood Pressure 195/80 H 10/17/25 18:03 Pulse Oximetry 95 10/17/25 18:11 Oxygen Delivery Method Nasal Cannula 10/17/25 18:11 Oxygen Delivery Flow Rate 2 10/17/25 18:11 Medical Decision Making MDM Narrative Medical decision making narrative: Chest x-ray shows her known interstitial lung disease but no pneumonia. She had negative COVID and influenza test yesterday. Blood work is nonspecific with a white count of 9.6. Blood cultures are obtained. Options were discussed with the patient and her family regarding admission overnight for observation versus discharge home and the patient and her family prefer her to be admitted for observation. Treatment diagnosis and disposition were discussed thoroughly. Differential Diagnosis Differential Diagnosis: Pneumonia, viral URI Lab Data Lab results reviewed: Yes I reviewed the patient's lab results Labs: Lab Results 10/17/25 Range/Units 17:13 WBC 9.6 (4.0-11.0) 10^3/uL RBC 4.25 (4.20-5.40) 10^6/uL Hgb 13.2 (12.0-16.0) g/dL Hct 39.6 (36.0-48.0) % MCV 93.2 (81.0-99.0) fL MCH 31.1 (26.7-34.0) pg MCHC 33.3 (29.9-35.2) g/dL RDW 13.2 (11.0-15.0) % Plt Count 360 (150-450) 10^3/uL MPV 10.6 (9.5-13.5) fL Neut % (Auto) 64.3 (43.0-75.0) % Lymph % (Auto) 20.6 (20.5-60.0) % Hernando % (Auto) 10.3 (1.7-12.0) % Eos % (Auto) 4.1 (0.9-7.0) % Baso % (Auto) 0.4 (0.2-2.0) % Neut # (Auto) 6.2 (1.4-6.5) 10^3/uL Lymph # (Auto) 2.0 (1.2-3.8) 10^3/uL Hernando # (Auto) 1.0 H (0.3-0.8) 10^3/uL Eos # (Auto) 0.4 (0.0-0.7) 10^3/uL Baso # (Auto) 0.0 (0.0-0.1) 10^3/uL Abs Immat Gran (auto) 0.03 (0.00-0.03) 10^3/uL Imm/Tot Granulo (auto) 0.3 (0.0-0.5) % Sodium 134 L (136-145) mmol/L Potassium 4.1 (3.5-5.1) mmol/L Chloride 101 (98-107) mmol/L Carbon Dioxide 24.8 (21.0-32.0) mmol/L Anion Gap 12.3 BUN 26.0 H (7.0-18.0) mg/dL Creatinine 0.77 (0.55-1.02) mg/dL Est GFR ( Amer) >60 (>=60 mL/min/1.73m^2) Est GFR (Non-Af Amer) >60 (>=60 mL/min/1.73m^2) BUN/Creatinine Ratio 33.8 Glucose 172 H (74-106) mg/dL Calcium 9.4 (8.5-10.1) mg/dL Troponin I High Sens 18.2 (4.0-51.3) pg/mL NT-Pro-B Natriuret Pep 367.0 (<=1800.0) pg/mL Imaging Data Chest x-ray: Radiologist's impression: ITS Impressions Chest X-Ray 10/17/25 17:18 IMPRESSION: No acute process. Similar diffuse lung fibrosis Impression dictated by: Mark Anthony Prieto M.D. 10/17/2025 6:17 PM Dictation Location: [place] [address] Electronically authenticated by: [id number] Y Date: 10/17/2025 18:17 ECG Data Attestation: I personally reviewed and interpreted this ECG as follows: (EKG on my interpretation shows sinus rhythm with no acute change. No previous available for comparison.) Discharge Plan Discharge Chief Complaint: Upper Respiratory Infection Clinical Impression: Upper respiratory infection, Generalized weakness Patient Disposition: Admitted as Observation Time of Disposition Decision: 18:32 Condition: Good
[2025-10-17 17:25] LABS: Hematocrit 39.6 % (36.0-48.0); Hemoglobin 13.2 g/dL (12.0-16.0); Immature Granulocytes Abs Auto 0.03 10^3/uL (0.00-0.03); Immature Granulocytes Pct Auto 0.3 % (0.0-0.5); Lymphocytes Absolute Auto 2.0 10^3/uL (1.2-3.8); Mean Corpuscular HGB Conc 33.3 g/dL (29.9-35.2); Mean Corpuscular Hemoglobin 31.1 pg (26.7-34.0); Mean Corpuscular Volume 93.2 fL (81.0-99.0); Platelet Count 360 10^3/uL (150-450); Red Blood Count 4.25 10^6/uL (4.20-5.40); White Blood Count 9.6 10^3/uL (4.0-11.0)
--- OUTSIDE RECORDS SUMMARY | 2025-10-17 17:35 | XMS_ITS | Clinical Summary ---
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 Name Role Phone Unavailable Primary Care Provider Unavailabl e Source Comments The following information is NOT included in Care Everywhere downloads:Psychiatric notes, ECG results, Cardiac Rehab notes, Pulmonary Function notes, data from SmartForms (includes but not limited toPregnancy data,audiograms, eye exams, pre-surgical evaluation notes, well-child exam data).[facility] Medications MedicationSigDispense QuantityRefillsLast FilledStart DateEnd DateStatus [...] Problems ProblemNoted DateDiagnosed DateSAH (subarachnoid hemorrhage)01/03/2024SDH (subdural hematoma)01/03/20244988Pcvoflw46/05/2024Former birowg5801/03/2024GERD (gastroesophageal reflux disease)01/03/2024HLD (hyperlipidemia)01/03/2024HTN (hypertension)01/03/2024Interstitial lung ndvngpb1501/03/2024Long term current use of zezflln5501/03/2024 Overview (01/03/2024): Current Medication List includes Lantus and Humalog. added per OP CDI policy. medical terminologist current use of systemic vuwfkgtv44/05/2024Multiple falls01/03/2024 Nonexudative age-related macular gepibydppkmh93/05/2024 Overview (01/03/2024): noted in 05/03/2023 Diabetic Eye Exam page 3. added per OP CDI policy. Zxeczzftne22/05/2024ecurrent major depression in full vzktgphli32/05/2024 Overview (01/03/2024): added per 09/28/2023 query response. Type 2 diabetes vuvmuwso14/05/2024 Overview (01/03/2024): linked DM with HLD per OP CDI policy. Immunizations ImmunizationAdministration DatesNext DueInfluenza, injectable, adjuvanted, quadrivalent, preservative free (KNQ=502)10/19/2023Influenza, injectable, high- dose seasonal, quadrivalent, preservative free (JTW=721)09/06/2022,09/20/2021 Influenza, intranasal, live, trivalent (LAIV3) (PMO=172)08/21/2019Pneumococcal conjugate 20 valent (PCV20), polysaccharide DUM774 conjugate, adjuvant, PF (BTY=797)11/03/2023neumococcal polysaccharide 23 Valent (PPSV23) (CVX=33) 10/07/2005Respiratory syncytial virus (RSV), vaccine, recombinant, protein subunit RSV prefusion F, adjuvant reconstituted, 0.5 mL, preservative free (KOH=300)11/17/2023Zoster Recombinant (RZV,Shingles) (SRT=116)08/26/2019 Social History Tobacco UseTypesPacks/DayYears UsedDateSmoking Tobacco: Never [...] steady place to sleep or slept in [place] (including now)?No 01/05/2024CommentsUnknownSex and Gender InformationValueDate RecordedSex Assigned at BirthNot on fileLegal QdpXlmzoa37/05/2024 1:59 AM ESTGender Identity Not on fileSexual OrientationNot on file Last Filed Vital Signs Vital SignReadingTime TakenCommentsBlood Uqpcryna211/62001/05/2024 2:00 PM EST Xyxyr638801/05/2024 2:00 PM RATFumwvjhzzyg05.4 ??C (97.5 ??F)01/05/2024 2:00 PM ESTRespiratory Vlki451101/05/2024 2:00 PM ESTOxygen Laeppzvfxv32%01/05/2024 2:00 PM ESTInhaled Oxygen Concentration--Unzpxj51.9 kg (134 lb 4.8 oz)01/03/2024 5:00 AM LUCFvuwpg006.4 cm (5')01/03/2024 5:00 AM ESTBody Mass Index26.23001/03/2024 5:00 AM EST Plan of Treatment Health MaintenanceDue DateLast DoneCommentsFoot Exam1939Vitamin B12 1939Eye Exam1939Urine Protein (microalbumin)1939Tdap Booster 1957Hepatitis A (HAV) Vaccine (optional start 19+ years)1958 Hepatitis B (HBV) Vaccine (optional start 60+ years)1999Shingles (RZV) Vaccine (2 of 2)Lipid Pybiykw85//01/2023Hemoglobin A1C/nnual Wellness Visit (G0438)12/30/2024asic Metabolic Panel502/05/2024, 01/04/2024, 01/03/2024OVID-19 Vaccine ( season)/, 10/01/2021, 01/08/2021, Additional history exists Influenza Vaccine (#1)511/, 09/06/2022, 09/20/2021, Additional history existsBone PukpkjlntebhTkjinquwx09/05/2022neumococcal Vaccine(s) (50+ yrs)Nhougbnki57/06/2023, 10/07/2005RSV vaccine (adult)Dsjyllbyw87/20/2023Pap SmearDiscontinued Procedures Procedure NamePriorityDate/TimeAssociated DiagnosisCommentsBASIC METABOLIC PANEL Puzhkgz2901/05/2024 1:34 AM EST HEMOGLOBIN F5AXeoidkj11/07/2024 1:34 AM EST from Last 3 Months or Most Recently Relevant to Health Maintenance Results * (ABNORMAL) BASIC METABOLIC PANEL (01/05/2024 1:34 AM EST)ComponentValueRef RangeTest MethodAnalysis TimePerformed AtPathologist FcdtdqqplVggbeld368(H)74 - 109 mg/dL01/05/2024 4:09 AM [facility] PATHOLOGY VGVGHFXMIEKctvvb950817 - 145 mmol/L01/05/2024 4:09 AM [facility] PATHOLOGY LABORATORYComment:Note updated reference ranges.Potassium4.53.5 - 5.0 mmol/L01/05/2024 4:09 AM [facility] PATHOLOGY LABORATORYComment: Note updated reference ranges. Note updated reference ranges. Carbon Tiopfet4055 - 31 mmol/L01/05/2024 4:09 AM [facility] PATHOLOG[facility] LABORATORY Comment:Note updated reference ranges.Zesplzdt46459 - 107 mmol/L01/05/2024 4:09 AM [facility] PATHOLOGY LABORATORYComment:Note updated reference ranges.Blood Urea Xloexyat191 - 25 mg/dL01/05/2024 4:09 AM [facility] PATHOLOGY LABORATORYComment:Note updated reference ranges.Creatinine0.620.60 - 1.20 mg/dL01/05/2024 4:09 AM [facility] PATHOLOGY LABORATORYComment:Note updated reference ranges.Calcium9.18.6 - 10.3 mg/dL01/05/2024 4:09 AM [facility] PATHOLOGY LABORATORYComment:Note updated reference ranges.Anion Xpr4484 - 4:09 AM [facility] PATHOLOGY LABORATORYEstimated GFR (CKD-EPI)88>=60 mL/min/1.43jwq5601/05/2024 4:09 AM [facility] PATHOLOGY LABORATORYComment: 2020 CKD EPI Equation using [...] Med 1 Vol. 385 Issue 19 Pages 9527-8616 Specimen (Source)Anatomical Location / LateralityCollection Method / Volume Collection TimeReceived TimeBloodBLOOD SPECIMEN / UnknownVenipuncture / Unknown 01/05/2024 1:34 AM EST01/05/2024 3:44 AM EST Narrative Authorizing ProviderResult TypeResult StatusAndrés Santana MD98 GENERAL LABFinal ResultPerforming OrganizationAddressCity/State/ZIP CodePhone Number [facility] PATH[facility] LABORATORY [address] [place] [address] * (ABNORMAL) HEMOGLOBIN A1C (01/05/2024 1:34 AM EST)ComponentValueRef RangeTest MethodAnalysis TimePerformed AtPathologist SignatureHemoglobin A1c8.1(H)4.0 - 5.6 %01/05/2024 4:06 PM ESTSELECT [facility] LABORATORYEstimated Avg Kmjwnkr250rw/dL01/05/2024 4:06 PM [facility] PATHOLOGY LABORATORYSpecimen (Source)Anatomical Location / LateralityCollection Method / VolumeCollection TimeReceived TimeBloodBLOOD SPECIMEN / UnknownVenipuncture / Jxmmurj3801/05/2024 1:34 AM EST01/05/2024 3:42 AM EST Narrative Authorizing ProviderResult TypeResult StatusVerona Bean MD98 GENERAL LABFinal ResultPerforming OrganizationAddressCity/State/ZIP CodePhone Number [facility] PATH[facility] LABORATORY [address], [place] [address] from Last 3 Months or Most Recently Relevant to Health Maintenance Insurance [facility] Address: [address] [place] [address] Advance Directives * Full Code (Latest Code Status on File) Date ActivatedDate InactivatedComments01/03/2024 5:17 AM01/05/2024 8:14 PMQuestion AnswerCommentsDocumentation of decision process for this code status:* Discussed with patient or surrogate.?? This is the code status chosen by the patient/surrogate.
--- OUTSIDE RECORDS SUMMARY | 2025-10-17 17:35 | XMS_ITS | Continuity of Care Document ---
Author Organization [facility], Kavitha albarran. 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 Care Team Information Compounding Assistant [phone] Assessments Date Code Description Provider 09/20/2023 E87.1 Hypo-osmolality and hyponatr emia Espinoza Quintanilla M.D. 09/20/2023 E11.22 Type 2 diabetes mellitus with diabetic chronic kidney disease Espinoza Quintanilla M.D. 09/20/2023 I10 Essential (primary) hyperten paris Espinoza Quintanilla M.D. 09/20/2023 R53.1 Weakness Lucio Sim
--- OUTSIDE RECORDS SUMMARY | 2025-10-17 17:36 | XMS_ITS | Clinical Summary ---
Author Organization [facility] Address [address] [facility] [place] [address] Care Team Providers Care Material Analyst Name Role Phone Ron Miramontes MD Primary Care Provider [phone] Kay Huerta Unavailable Allergies Active AllergyReactionsCriticalityNoted DateCommentsAminolevulinic AcidOther Dvmhdw2204/16/2022 AOF YazodtrswjdalHmrwaXoivpe34/17/2024 low blood pressure Medications MedicationSigDispense QuantityRefillsLast FilledStart DateEnd DateStatus traZODone (Desyrel) 50 MG tablet Active propranolol (Inderal) 60 MG tablet Take 60 mg by mouth in the morning.09/09/2023ctive losartan (Cozaar) 50 MG tablet Take 50 mg by mouth in the morning.07/05/2023ctive Lancets (trakkies ResearchTouch Delica Plus Gzwgrz93Y) [facility] 07/14/2023ctive BD Pen Needle Xiao 2nd Gen 32G X 4 MM [facility] 03/07/2024ctive Continuous Glucose Sensor (FreeStyle Fany 2 Sensor) misc 02/23/2024ctive Continuous Glucose Human Factors Specialist (FreeStyle Fany 2 [place]) device 12/28/2023ctive cholecalciferol (Vitamin D3) 25 MCG (1000 UT) tablet 1 (one) time each day at the same timeActive Blood Glucose Monitoring Suppl (AskforTask Verio Flex System) w/Device kit 07/14/2023ctive budesonide-formoterol [...] under the skin 1 (one) time if negdbh5709/29/2024ctive fluconazole (Diflucan) 150 MG tablet Take 150 mg by mouth 1 (one) time05/02/2024ctive insulin glargine (Lantus SoloStar) 100 UNIT/ML pen Indications:Type 2 diabetes mellitus with hyperglycemia, with long-term current use of insulin ([facility])INJECT 10 UNITS UNDER THE SKIN EVERY DAY [...] hyperglycemia, with long-term current use of insulin ([facility]),HypoglycemiaInject 0.2 mL (1 mg) under the skin 1 (one) time if needed for low blood sugar 1 each [id number] insulin lispro (HumaLOG KWIKPEN) 100 UNIT/ML injection Indications:Type 2 diabetes mellitus with hyperglycemia ([facility])INJECT 3 UNITS BEFORE MEALS PLUS ISS. (EXPECT DAILY DOSE 20 UNITS) 15 mL 5Active empagliflozin (Jardiance) 10 MG Oral; Duration: 30 DaysActive aspirin 81 MG chewable tablet Chew DailyActive amitriptyline (Elavil) 10 MG tablet Indications:Chronic coughTAKE 1 TABLET BY MOUTH AT BEDTIME NEEDED FOR COUGH . DO NOT START BEFORE OCTOBER 03, 2025. 30 tablet 5Active guaiFENesin-codeine (Robitussin-AC) 100-10 MG/5ML syrup /04/2025Discontinued(Reorder) amitriptyline (Elavil) 10 MG tablet Indications:Chronic coughTake 1 tablet (10 mg) by mouth as needed at bedtime (cough) Do not start before October 03, 2025. 30 tablet Discontinued guaiFENesin-codeine (Robitussin-AC) 100-10 MG/5ML syrup Indications:Chronic cough,ILD (interstitial lung disease) (HCC)Take 5 mL by mouth 4 (four) times a day as needed for cough for up to 7 days 300 mL /Expired Active Problems ProblemNoted DateDiagnosed DateAltered mental ooceqv4304/10/2024 Resolved Problems ProblemNoted DateDiagnosed DateResolved QwetXgstjlszagohfytq83/30/202510/30/2025 Former tobacco useParietoalveolar iqdcnqgcvvb19/30/2025 09/27/20256713Ebtbfsaxu15Gastroesophageal reflux abaysim6809/27/2025 09/27/20251247Wegbuddqntparo78/29/202510/29/9583Sznxrhqpwqpjzl64/29/202510/29/2025 Abnormal qxbevxvov61rthritis of back Atherosclerosis of abdominal aorta Overview (03/06/2025): added per 02/11/2025 query response. Back pain04MI 26.0-26.9,adultOverweight (BMI 25.0-29.9)ronchiectasis Overview (03/06/2025): noted in 12/05/2024 Pulmonology Consult Note page 1. added per OP CDI policy. Centrilobular kuappvkdr23 Overview (03/06/2025): noted in 12/05/2024 Pulmonology Consult Note page 1. added per OP CDI policy. Wqkfekcxmzlr59oughramps of lower ewvcszzyc60DizzinessHeartburn03/06/2025 03/06/2025History of small bowel ndhxyemtrej40 Overview (03/06/2025): added per 02/11/2025 query response. Hospital discharge follow-upPeripheral vascular dwdcpihzobcks89HyponatremiaLong term current use of inhaled atsoimg14 Overview (03/06/2025): noted in 12/05/2024 Pulmonology Consult Note page 1. added per OP CDI policy. Malnutrition ([facility])MigraineOveractive lmyhqmn18Peripheral circulatory disorder due to type 2 diabetes blizgqvz05 Overview (03/06/2025): linked DM with PVD per OP CDI policy. Piriformis syndrome of left sidePitting edema03/06/2025 03/06/2025SBO (small bowel obstruction)Seasonal allergies Shoulder pain, rightUTI symptoms Weaknesseast bgrxgoxsw72/08/2025 03/06/2025History of hpsoyzm32Personal history of nicotine kxwuhrsllo95Stress incontinence (female) (male)06/22/2024 09/26/2025Long term (current) use of antithrombotics/dlzynwgwnlrdh21/25/2024 09/26/2025Other terminal supervisor (current) drug whcjtzu75Nausea Other specified disorders of bone density and structure, multiple sitesGastro-esophageal reflux disease without tdxoskmrntj82Hyperlipidemia, jvayyqxhcse03 Interstitial pulmonary disease, sldyemnfldf91Nonexudative age- related macular degeneration, bilateral, early dry stage Essential (primary) jhechdhvavjr50Major depressive disorder, recurrent, in full ymfvtliwm68Unspecified intestinal obstruction, unspecified as to partial versus complete ttbiolnwyfv25/18/2024 09/26/2025Type 2 diabetes mellitus with other specified kchonniasxvi67/18/2024 09/26/20250562Mogrbku32Former tbppaw50GERD (gastroesophageal reflux disease)HLD (hyperlipidemia) Interstitial lung togxtab35Long term current use of Overview (03/06/2025): Current Medication List includes Lantus and Humalog. added per OP CDI policy. 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 added per OP CDI policy. Recurrent major depression in full nmmjahupq23 Overview (03/06/2025): added per 09/28/2023 query response. SAH (subarachnoid hemorrhage)SDH (subdural hematoma) Type 2 diabetes Overview (03/06/2025): linked DM with HLD per OP CDI policy. Encounters DateTypeDepartmentCare GitbOyzblvaojhq94/10/2025Refill [facility] [address] [place] [address] Evita Fitzgerald, DO Chronic cough10/04/2025Telephone [facility] [place] [facility] [address] [place] [address] Nereyda Hammond MA 09/27/2025 3:15 PM EDTOffice Visit [facility] [place] [facility] [address] [place] [phone] Evita Fitzgerald DO Chronic cough (Primary Dx); ILD (interstitial lung disease) (HCC)09/27/2025amboo flowsheet [facility] [address] [place] [address] Evita Fitzgerald, 09/27/20253689Uazqkn13/06/2025Refill [facility] [place] [facility] [address] [place] [address] Duc Joshi MD Type 2 diabetes mellitus with hyperglycemia (HCC)08/07/2025 11:10 AM EDTOffice Visit [facility] [place] [address] [place] [address] Duc Joshi MD Type 2 diabetes mellitus with hyperglycemia, with long-term current use of insulin (HCC) (Primary Dx); Insulin long-term use (HCC); Encounter for dietary consultation; Vitamin D deficiency; Hyperlipemia, mixed ; Hmviyzggqzmb80/09/2025amb flowsheet [facility] [place] [facility] [address] [place] [address] Duc Joshi MD 07/19/2025 1:45 PM EDTOffice Visit [facility] [address] [place] [address] Evita Fitzgerald, DO Chronic cough07/19/2025amb flowsheet [facility] [address] [place] [address] Evita Fitzgerald, 07/19/2025Travelfrom Last 3 Months Immunizations ImmunizationAdministration DatesNext DueInfluenza Whole10/07/2005Influenza, High Dose Seasonal, Preservative Free08/25/2024Influenza, High-dose Seasonal, Quadrivalent, Preservative Free09/06/2022,09/20/2021Influenza, Seasonal, Quadrivalent, Ftrqkxxlld58/21/2023Influenza, Ftdeypdmtqi09/27/2024Influenza, live, wwhjpdufam16/23/2019Pneumococcal Conjugate PCV 1313Pneumococcal Conjugate PCV 3Pneumococcal Polysaccharide IDMH436212/07/2004RSV, Ilvfgjrzrpk69/20/2023RSV, recombinant, protein subunit RSVpreF, adjuvant reconstitu, 120mcg/0.5mL, PF (Arexvy)11/17/2023Zoster, Uuelmrvkska47/07/2025, 08/26/2019 Family History Medical HistoryRelationNameCommentsCancerFatherDiabetesFatherCancerMother DiabetesMotherRelationNameStatusCommentsFatherDeceasedMotherDeceased Social [...] InformationValueDate RecordedSex Assigned at Not on fileLegal QrkNgaxuh72/15/2023 6:37 PM EDTGender IdentityNot on fileSexual OrientationNot on file Last Filed Vital Signs Vital SignReadingTime TakenCommentsBlood Bsmhvbee041/8301609/27/2025 3:14 PM EDT Lcfij751509/27/2025 3:14 PM EDTTemperature--Respiratory Xfvx2243 11:12 AM EDTOxygen Dilfzuqxrh03%09/27/2025 3:14 PM EDTInhaled Oxygen Concentration-- Jybpto48.7 kg (147 lb)09/27/2025 3:14 PM UZAOzuddj189.4 cm (5')09/27/2025 3:14 PM EDTBody Mass Index28.7109/27/2025 3:14 PM EDT Plan of Treatment DateTypeDepartmentCare Team (Latest Contact Info)Flsvtgttlym97/13/2026 11:10 AM ESTOffice Visit [facility] [address] [place] [address] Duc Joshi MD [address] [place] [address] 01/03/2026 3:00 PM ESTOffice Visit [facility] [address] [place] [phone] Evita Fitzgerald DO [address] [place] [address] 03/19/2026 11:40 AM EDTOffice Visit [facility] [address] [address] Bethany Wells NP [address] [place] [address] Health MaintenanceDue DateLast DoneCommentsCOVID-19 Vaccine ( season) , 08/31/2024, 09/14/2022, Additional history exists Pneumococcal Vaccine: 65+ HbzraHdbaxzwfb33/06/2023, 11/03/2023, 10/07/2005 Influenza PhfdmbmPiilrxqaw85/16/2025, 08/25/2024, 08/25/2024, Additional history exists Procedures Procedure NamePriorityDate/TimeAssociated DiagnosisCommentsPOCT GLYCOSYLATED HEMOGLOBIN (HGB A1C)Prctcel0108/07/2025 11:16 AM EDT Type 2 diabetes mellitus with hyperglycemia, with long-term current use of insulin (HCC) POCT SOANZFCYmxanlj05/09/2025 11:16 AM EDT Type 2 diabetes mellitus with hyperglycemia, with long-term current use of insulin (HCC) RENAL FUNCTION RNVKPCgzznov67/25/2025 9:02 AM EDT Type 2 diabetes mellitus with hyperglycemia, with long-term current use of insulin (HCC) LIPID VOVBTWvusaxl88/25/2025 9:02 AM EDT Type 2 diabetes mellitus with hyperglycemia, with long-term current use of insulin ([facility]) MICROALBUMIN / CREATININE URINE JWUHIVcozswx99/25/2025 9:02 AM EDT Type 2 diabetes mellitus with hyperglycemia, with long-term current use of insulin ([facility]) VITAMIN D 25 HYDROXY DEYUHFvnlzje31/25/2025 9:02 AM EDT Type 2 diabetes mellitus with hyperglycemia, with long-term current use of insulin ([facility]) C-RCJWGLLTgjsxmn08/25/2025 9:02 AM EDT Type 2 diabetes mellitus with hyperglycemia, with long-term current use of insulin ([facility]) from Last 3 Months Results * POCT glycosylated hemoglobin (Hb A1C) docked device (08/07/2025 11:16 AM EDT) ComponentValueRef RangeTest MethodAnalysis TimePerformed AtPathologist SignatureHemoglobin A1C8.1Specimen (Source)Anatomical Location / Laterality Collection Method / VolumeCollection TimeReceived TimeBloodVenous blood specimen / Sipjlko5108/07/2025 11:16 AM EDT Narrative Authorizing ProviderResult TypeResult StatusVA Palo Alto HospitalOINT OF CARE TEST ENTER/EDIT ORDERABLESFinal Result * POCT glucose manually resulted (08/07/2025 11:16 AM EDT)ComponentValueRef RangeTest MethodAnalysis TimePerformed AtPathologist SignatureGlucose Blood, BDI593ug/dLSpecimen (Source)Anatomical Location / LateralityCollection Method / VolumeCollection TimeReceived TimeBloodCapillary blood specimen / Unknown 08/07/2025 11:16 AM EDT Narrative Authorizing ProviderResult TypeResult StatusAhmad F Madelyn MDPOINT OF CARE TEST ENTER/EDIT ORDERABLESFinal Result * Microalbumin / creatinine urine ratio (07/23/2025 9:02 AM EDT)ComponentValue Ref RangeTest MethodAnalysis TimePerformed AtPathologist SignatureCreat Ur66.9 Not Estab. mg/dLLABCORPAlbumin Ur14.6Not Estab. ug/mLLABCORPAlb/Creat Ratio Stvio807 - 29 mg/g creatLABCORPComment: ? Normal: ?0 - ??29 ? Moderately increased: 30 - 300 Severely increased: >300 Specimen (Source)Anatomical Location / LateralityCollection Method / Volume Collection TimeReceived TimeUrineUrine specimen obtained by clean catch procedure / Xxklrth2907/23/2025 9:02 AM EDT07/23/2025 Narrative [facility] - 07/24/2025 12:35 PM EDT Performed at: 02 - [facility] ??[id number] Trimmer Loader: Tommie Chamberlain PhD, Phone: ??[phone] Authorizing ProviderResult TypeResult StatusDuc CARVAJAL URINE ORDERABLESFinal ResultPerforming OrganizationAddressCity/State/[facility] CodePhone Number [facility] * (ABNORMAL) Vitamin D 25 hydroxy Total (07/23/2025 9:02 AM EDT)ComponentValue Ref RangeTest MethodAnalysis TimePerformed AtPathologist SignatureVitamin D, 25-Myriljk557.0(H)30.0 - 100.0 ng/mLLABCORPComment: Vitamin D deficiency has been defined by the [place] [employer] and an Endocrine Society practice guideline as a level of serum 25-OH vitamin D less than 20 ng/mL (1,2). The Endocrine Society went on to further define vitamin D insufficiency as a level between 21 and 29 ng/mL (2). 1. IOM ([place] of [employer]). 2010. Dietary reference ?? intakes for calcium and D. [place]: The ?? National [employer] Press. 2. [place] CHARLES, Roney PITTMAN, Adolfo OBRIEN, et al. ?? Evaluation, treatment, and prevention of vitamin D ?? deficiency: an Endocrine Society clinical practice ?? guideline. JCEM. 2010; 96(7):1911-30. Specimen (Source)Anatomical Location / LateralityCollection Method / Volume Collection TimeReceived TimeBloodVenous blood specimen / Ydqjnyo5707/23/2025 9:02 AM EDT07/23/2025 Narrative [facility] - 07/24/2025 12:35 PM EDT Performed at: [address] ??[id number] Trimmer Loader: Tommie Chamberlain PhD, Phone: ??[phone] Authorizing ProviderResult TypeResult Statuscharleen Joshi MDCENTR[facility] BLOOD ORDERABLESFinal ResultPerforming OrganizationAddressCity/State/ZIP CodePhone Number [facility] * (ABNORMAL) C-peptide (07/23/2025 9:02 AM EDT)ComponentValueRef RangeTest MethodAnalysis TimePerformed AtPathologist SignatureC-PEPTIDE, SERUM1.0(L)1.1 - 4.4 ng/mLLABCORPComment:C-Peptide reference interval is for fasting patients.Specimen (Source)Anatomical Location / LateralityCollection Method / VolumeCollection TimeReceived TimeBloodVenous blood specimen / Unknown 07/23/2025 9:02 AM EDT07/23/2025 Narrative [facility] - 07/24/2025 12:35 PM EDT Performed at: [address] ??[id number] Trimmer Loader: Tommie Chamberlain PhD, Phone: ??[phone] Authorizing ProviderResult TypeResult Statuscharleen Joshi [facility]DCEN[facility] BLOOD ORDERABLESFinal ResultPerforming OrganizationAddressCity/State/ZIP CodePhone Number [facility] * (ABNORMAL) Renal function panel (07/23/2025 9:02 AM EDT)ComponentValueRef RangeTest MethodAnalysis TimePerformed AtPathologist JcxlmtatpSadbxuu096(H)70 - 99 mg/wASWMNMLEJZS925 - 27 mg/dLLABCORPCreat0.730.57 - 1.00 mg/dLLABCORPEGFR 81>59 mL/min/1.73LABCORPBUN/Creat Ratio30(H)12 - 43VYCNHETHwscoy731591 - 144 mmol/[facility]ABC[facility]PPotassium4.03.5 - 5.2 mmol/MPLLYMKURxxirkuw9975 - 106 mmol/L LABCORPCarbon Dhkjnbm9348 - 29 mmol/LLABCORPCalcium9.98.7 - 10.3 mg/dLLABCORP Phosphorus3.63.0 - 4.3 mg/dLLABCORPAlbumin4.23.7 - 4.7 g/dLLABCORPSpecimen (Source)Anatomical Location / LateralityCollection Method / VolumeCollection TimeReceived TimeBloodVenous blood specimen / Ctyjyyk8207/23/2025 9:02 AM EDT 07/23/2025 Narrative [facility] - 07/24/2025 12:35 PM EDT Performed at: [address], [address], [place], [place] ??[id number] Trimmer Loader: Dwayne Oquendo MD, Phone: ??[phone] Authorizing ProviderResult TypeResult StatusDuc CARVAJAL BLOOD ORDERABLESFinal ResultPerforming OrganizationAddressCity/State/ZIP CodePhone Number [facility] * (ABNORMAL) Lipid panel (07/23/2025 9:02 AM EDT)ComponentValueRef RangeTest MethodAnalysis TimePerformed AtPathologist SignatureCholesterol, Vzvll870907 - 199 mg/kTDPDAQTHUytduhgotuwei1781 - 149 mg/dLLABCORPHDL Syqgmnyhjxw86>39 mg/dL LABC[facility]PVLDL Cholesterol Ido982 - 40 mg/dLLABCORPLDL Chol Calc (NIH)106(H)0 - 99 mg/dLLABCORPSpecimen (Source)Anatomical Location / LateralityCollection Method / VolumeCollection TimeReceived TimeBloodVenous blood specimen / Gwcjkfi7307/23/2025 9:02 AM EDT07/23/2025 Narrative [facility] - 07/24/2025 12:35 PM EDT Performed at: [address] ??[id number] Trimmer Loader: Tommie Chamberlain PhD, Phone: ??[phone] Authorizing ProviderResult TypeResult StatusDuc CARVAJAL BLOOD ORDERABLESFinal ResultPerforming OrganizationAddressCity/State/ZIP CodePhone Number [facility] from Last 3 Months Insurance Care Teams Team MemberRelationshipSpecialtyStart DateEnd Date Ron Miramontes MD [address] [phone] PCP - GeneralFamily Medicine02/19/25 Kay Huerta PA [address] [place] [address] Physician AssistantNeurology02/19/25
--- OUTSIDE RECORDS SUMMARY | 2025-10-17 17:36 | XMS_ITS | Clinical Summary ---
Author Organization [facility] Address [address] [place] [address] Care Team Providers Care Molding Machine Operator Helper Name Role Phone Unavailable Primary Care Provider Unavailabl e Social History Tobacco UseTypesPacks/DayYears UsedDateSmoking Tobacco: Never Assessed CommentsUnknownSex and Gender InformationValueDate RecordedSex Assigned at Not on fileLegal CcyRogkws23/30/2022 12:27 AM EDTGender IdentityNot on file Sexual OrientationNot on file Plan of Treatment Not on file
--- OUTSIDE RECORDS SUMMARY | 2025-10-17 17:36 | XMS_ITS | Encounter Summary ---
Author Organization [facility] Address [address] [place] [address] Care Team Providers Care Compacting Machine Operator/Tender Name Role Phone Ron Miramontes MD Primary Care Provider [phone] Kay Huerta Unavailable Reason for Visit * ReasonCommentsMed Refill Encounter Details DateTypeDepartmentCare Team (Latest Contact Info)Mmhkiffaolw03/10/2025Refill [facility] [place] [facility] [address] [place] [address] Evita [place] DO [address] [place] [address] Chronic cough Social History Tobacco UseTypesPacks/DayYears UsedDateSmoking Tobacco: FormerCigarettes [...] Date RecordedSex Assigned at BirthNot on fileLegal HdvGduics74/15/2023 6:37 PM EDTGender IdentityNot on fileSexual OrientationNot on filedocumented as of this encounter Plan of Treatment DateTypeDepartmentCare Team (Latest Contact Info)Sdeilutieko83/13/2026 11:10 AM ESTOffice Visit [facility] [place] [facility] [address] [place] [address] Duc Joshi MD [address] [place] [address] 01/03/2026 3:00 PM ESTOffice Visit [facility] [place] [facility] [address] [place] [phone] Evita [place] DO [address] [place] [address] 03/19/2026 11:40 AM EDTOffice Visit [facility] [place] [facility] [address] [phone] Bethany Wells, AUTOMOBILE DAMAGE APPRAISER [address] [place] [address] documented as of this encounter Visit Diagnoses Diagnosis Chronic cough Cough documented in this encounter Care Teams Team MemberRelationshipSpecialtyStart DateEnd Date Ron Miramontes MD [address] [place] [address] PCP - GeneralFamily Medicine02/19/25 Kay Huerta PA [address] [place], [place] [phone] Physician AssistantNeurology02/19/25documented as of this encounter
--- OUTSIDE RECORDS SUMMARY | 2025-10-17 17:36 | XMS_ITS | Encounter Summary ---
Author Organization [facility] Address [address] [place] [address] Care Team Providers Care Plugger Worker Name Role Phone Ron Miramontes MD Primary Care Provider [phone] Kay Huerta Unavailable Encounter Details DateTypeDepartmentCare Team (Latest Contact Info)Nmwieqnabcp05/06/2025Telephone [facility] [place] [facility] [address] [place] [address] Nereyda Hammond MA Social History Tobacco UseTypesPacks/DayYears UsedDateSmoking Tobacco: FormerCigarettes [...] Date RecordedSex Assigned at BirthNot on fileLegal XmeSqkemj60/15/2023 6:37 PM EDTGender IdentityNot on fileSexual OrientationNot on filedocumented as of this encounter Miscellaneous Notes * Telephone Encounter - Nereyda Hammond MA - 10/04/2025 3:30 PM EST LM informing patient * Telephone Encounter - Evita Fitzgerald DO - 10/04/2025 2:55 PM EST Erx sent * Telephone Encounter - Nereyda Hammond MA - 10/04/2025 2:19 PM EST Patient's called asking for a refill of her guaifenesin-codeine syrup to [facility] documented in this encounter Plan of Treatment DateTypeDepartmentCare Team (Latest Contact Info)Dvzgtwslskp51/13/2026 11:10 AM ESTOffice Visit [facility] [place] [facility] [address] [place] [address] Duc Joshi MD [address] [place] [address] 01/03/2026 3:00 PM ESTOffice Visit [facility] [place] [facility] [address] [place] [address] Evita [place] DO [address] [place] [address] 03/19/2026 11:40 AM EDTOffice Visit [facility] [place] [facility] [address] [phone] Bethany Wells NP [address] [place] [address] documented as of this encounter Visit Diagnoses Diagnosis Chronic cough- Primary Cough ILD (interstitial lung disease) (HCC) Postinflammatory pulmonary fibrosis documented in this encounter Care Teams Team MemberRelationshipSpecialtyStart DateEnd Date Ron Miramontes MD [address] [place] [address] PCP - GeneralFamily Medicine02/19/25 Kay Huerta PA [address] [place] [address] Physician AssistantNeurology02/19/25documented as of this encounter
--- OUTSIDE RECORDS SUMMARY | 2025-10-17 17:36 | XMS_ITS | Patient Health Record ---
Author Organization The [facility] in [place] Address [address] [place] [address] Care Team Providers Care Educational Psychology Teacher Name Role Phone Audra Amos Primary Care Provider Unavail able Zay Borja Unavailable [phone] Allergies No Known Allergies Results Component Value Reference Range Notes CT Chest High Resolution Reviewed date:11/30/2024 10:59:02 AM Interpretation: Performing Lab: Notes/Report: HEMOGLOBIN Reviewed date:11/30/2024 11:30:20 AM Interpretation: Performing Lab: Notes/Report: [facility] , Hemoglobin 12.8 12.0-16.0 g/dL Performing Lab:see noteML - [facility] LBCT chest high res Reviewed date:11/30/2024 11:31:56 AM Interpretation: Performing Lab: Notes/Report: Source Facility: [place] [address] [place] [address] CT Scan Report Signed Patient: MICHELLE NASH MR#: [id number] : 1940 Acct:[id number] Age/Sex: 84 / F ADM Date: 11/28/24 Loc: CT Attending Dr: Zay Borja D.O. Ordering Physician: Zay Borja D.O. Date of Service: 11/28/24 Procedure(s): CT chest high res Accession Number(s): [id number] cc: NATACHA ONEILL [place] [id number] Patient Name: MICHELLE NASH MRN: [id number] date: 1940 Sex: F Assigned Patient Location: CT Current Patient Location: Accession/Order Number: [id number] Exam Date: 11/28/2024 08:50 Report Date: 11/29/2024 04:43 At the request of: ZAY BORJA Procedure: CT chest high res EXAMINATION: CT [...] Dictated By: Kwaku Johnson M.D. Signed By: 11/29/246 DD/ 2 TD/TT: Stem Processing Machine Operator:RT pulmonary function test Reviewed date:11/30/2024 01:26:58 PM Interpretation: Performing Lab: Notes/Report: Source Facility: [place] [address] Respiratory Report Signed Patient: MICHELLE NASH MR#: [id number] : 1940 Acct:[id number] Age/Sex: 84 / F ADM Date: 11/28/24 Loc: CT Attending Dr: Zay Borja D.O. Ordering Physician: Zay Borja D.O. Date of Service: 11/28/24 Procedure(s): RT pulmonary function test Accession Number(s): [id number] cc: [facility] Test Date: 2024-11-28 Pat Name: MICHELLE NASH Department: Room: - Gender: Female Roll Over Loader: Martina Franklin RRT : 1940 Requested By: Zay Borja Order Number: [id number] Reading MD: Zay Borja Interpretive Statements Pulmonary function testing was completed [...] Signed On 11-30-2024 13:16:02 EST by Zay Borja Dictated By: Zay Borja D.O. Signed By: 11/30/24 1316 DD/ 0912 TD/TT: Stem Processing Machine Operator: Reason For Referral No Information Medications [...] Status Comme nts Arexvy Unknown 11/17/2023 Administered CogniSens Syringe Pre-Filled 30 mcg/0.3 jWMscnpvv00/03/2024Administered Flu, Fluad (25794) 65 yrs + High Dose Seasonal (0432-8156)Kuyjiqf7808/25/2024 AdministeredFlu, Fluad (83186) 65 yrs+, single-dose syringe (6615-2343)Unknown 3AdministeredPneumococcal (Prevnar 20)Jekkfuv76/06/2023Administered SARS-COV-2 (COVID 19) bivalent 30 mcg/0.3 ml evaqYvyjuem79/17/2022Administered ZOSTER (SHINGLES) VACCINE (HZV)Hlxesgu1508/26/2019Administered Social History Tobacco Use: Social History Observation Description Date Details (start date - stop date) Former Smoker NA - NA Tobacco Control (Standard) Question Answer Notes Tobacco use: Former smoker How long has it been since you last smoked?Greater than 10 yearsAdditional Findings: Tobacco agl-zgmtLn-bmmxspwgt smoker amount unknown Problems Problem Type SNOMED Code ICD Code Onset Dates Problem Status W/U Status Risk Notes Problem Centrilobular emphysema (05773051) Centri lobular emphysema (J43.2) ActiveconfirmedProblemBronchiolectasis (32365042)Bronchiectasis, uncomplicated (J47.9)ActiveconfirmedProblemParietoalveolar pneumopathy (45451043)Interstitial pulmonary disease, unspecified (J84.9)ActiveconfirmedProblemLong-term current use of inhaled steroid (490918961)detention (current) use of inhaled steroids (Z79.51)ActiveconfirmedProblemLong-term current use of systemic steroid (564407199864888)detention (current) use of systemic steroids (Z79.52)Active confirmedProblemDiabetes mellitus type 2 (disorder) (06943149)DM2 (diabetes mellitus, type 2) (E11.9)ActiveconfirmedProblemType II diabetes mellitus well controlled (516012726)Diabetes mellitus type 2, controlled (E11.9)Active confirmedProblemEx-tobacco user (finding) (568237755)History of tobacco abuse (Z87.891)ActiveconfirmedProblemGastroesophageal reflux disease (306042958) Gastroesophageal reflux disease (K21.9)ActiveconfirmedProblemPertussis (92358016)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 Vital Signs Heart Rate 60 /min 12/05/2024 Rtsqaqxibpy74.8 degrees Hvpcugwqpv70/07/2025Respiratory Rate18 /min12/05/2024 Oeuqjdiv17 %12/05/2024lood pressure mm Hg12/05/20241032Rdsrgs29 in 12/05/2024lood pressure dfonoowf106 mm Hg12/05/20246075Vgbalz607.8 lbs12/05/2024MI 25.93 kg/m212/05/2024 Encounters Encounter Location Date Provider Diagnosis Pulmonary Medicine [place] [address] [place] [address] 11/06/2024 [facility] Pulmonary Medicine [address] [place] [address]/25/2025 [facility] Medicine [address] [place] [address] [facility], [facility] J84.9 ; Centrilobular emphysema J43.2 ; Bronchiectasis,uncomplicated J47.9 ; Gastroesophageal reflux disease K21.9 ; vermin exterminator (current) use of inhaled carrington roids Z79.51 [...] can look into several OTC cough medicines, preferably with dextromethorphan for its antitussive effects. She states she is concerned about the cough syrup is affecting her blood sugar. Generally, a teaspoon every now and then should not be an issue, but if she is that concern, she can look [...] End Date [place] [address] [place] [address] [id number] Daniella Nash - patient is the [id number] 2004[facility] [address] [place] [id number], CarolSelf - patient is the insured Medical [...] Surgery Date(Month/Year) Pancreatic Surgery x 2 Bladder oehojfl5681Zwfipywa itbxurq6511R20 kyphoplastyHospitalization History Reason Date(Month/Year) Hyperglycemia-[facility] 10/2023 Cough/dehydration-[facility] ER 03/23/2023
[2025-10-17 17:48] LABS: Anion Gap 12.3; Blood Urea Nitrogen 26.0 mg/dL (7.0-18.0); Calcium 9.4 mg/dL (8.5-10.1); Carbon Dioxide 24.8 mmol/L (21.0-32.0); Chloride 101 mmol/L (98-107); Estimated GFR (African America >60 (>=60 mL/min/1.73m^2); Estimated GFR (Non-African Ame >60 (>=60 mL/min/1.73m^2); Glucose 172 mg/dL (74-106); Potassium 4.1 mmol/L (3.5-5.1); Sodium 134 mmol/L (136-145)
[2025-10-17 17:51] LABS: NT Pro B Type Natriuretic Pept 367.0 pg/mL (<=1800.0)
--- NOTE | 2025-10-17 18:40 | ED.GENADUL1 ---
HPI HPI - General Adult General Chief complaint: Upper Respiratory Infection Stated complaint: COUGH WEAKNESS Time Seen by Provider: 10/17/25 17:11 Source: family Mode of arrival: Wheelchair Related Data Home Medications ?Medication ?Instructions ?Recorded ?Confirmed albuterol sulfate 90 mcg/actuation 2 puff inhalation Q6H PRN 10/17/25 10/17/25 aerosol inhaler shortness of breath or wheezing amitriptyline 10 mg tablet 10 mg PO BEDTIME 10/17/25 10/17/25 amoxicillin 875 mg-potassium 1 tab PO BIDWM 10/17/25 10/17/25 clavulanate 125 mg tablet aspirin 81 mg tablet,delayed 81 mg PO DAILY 10/17/25 10/17/25 release (Ecotrin Low Strength) atorvastatin 10 mg tablet 10 mg PO .QHS 10/17/25 10/17/25 benzonatate 100 mg capsule 100 mg PO Q8H PRN cough 10/17/25 10/17/25 doxycycline hyclate 100 mg capsule 100 mg PO Q12H 10/17/25 10/17/25 gabapentin 100 mg capsule 200 mg PO BEDTIME 10/17/25 10/17/25 ibandronate 150 mg tablet 150 mg PO .monthly 10/17/25 10/17/25 insulin glargine 100 unit/mL (3 10 unit subcut BID 10/17/25 10/17/25 mL) subcutaneous pen (Lantus Solostar U-100 Insulin) insulin lispro 100 unit/mL subcut 10/17/25 subcutaneous pen (Humalog KwikPen (U-100) Insulin) losartan 50 mg tablet 50 mg PO DAILY 10/17/25 10/17/25 bcjlqwuw-rpl-zefq-FA-vit K-lut 1 tab PO .QD 10/17/25 10/17/25 propranolol 60 mg tablet 90 mg PO .Evening 10/17/25 10/17/25 trazodone 50 mg tablet 25 mg PO BEDTIME 10/17/25 10/17/25 vitamins A,C,K-kowv-scndqg 1 tab PO .QD 10/17/25 10/17/25 Allergies Allergy/AdvReac Type Severity Reaction Status Date / Time No Known Drug Allergies Allergy Verified 10/17/25 16:58 PFSH PFSH Social History Little interest or pleasure in doing things: not at all Feeling down, depressed, or hopeless: not at all Exam Constitutional Vital Signs, click to edit/add: Last Vital Signs Temp 97.9 F 10/17/25 16:59 Pulse 92 H 10/17/25 16:59 Resp 20 10/17/25 16:59 BP 195/80 H 10/17/25 18:03 Pulse Ox 95 10/17/25 18:11 O2 Del Method Nasal Cannula 10/17/25 18:11 O2 Flow Rate 2 10/17/25 18:11 Course Vital Signs Vital signs: Vital Signs Temperature 97.9 F 10/17/25 16:59 Pulse Rate 92 H 10/17/25 16:59 Respiratory Rate 20 10/17/25 16:59 Blood Pressure 200/100 H 10/17/25 16:59 Pulse Oximetry 94 L 10/17/25 16:59 Oxygen Delivery Method Room Air 10/17/25 16:59 Temperature 97.9 F 10/17/25 16:59 Pulse Rate 92 H 10/17/25 16:59 Respiratory Rate 20 10/17/25 16:59 Blood Pressure 195/80 H 10/17/25 18:03 Pulse Oximetry 95 10/17/25 18:11 Oxygen Delivery Method Nasal Cannula 10/17/25 18:11 Oxygen Delivery Flow Rate 2 10/17/25 18:11 Medical Decision Making MDM Narrative Medical decision making narrative: Chest x-ray shows no evidence of pneumonia. She had negative COVID and influenza test yesterday. I offered to repeat them but the family does not feel that she needs them so they were not performed. I discussed with the patient and her family discharge home versus admission for observation and we have agreed that the patient will be admitted for observation tonight. She was given gentle IV fluids. Blood cultures and urinalysis are pending. Treatment diagnosis and disposition were discussed with the patient and her family. Differential Diagnosis Differential Diagnosis: Pneumonia, URI, dehydration Lab Data Lab results reviewed: Yes I reviewed the patient's lab results Labs: Lab Results 10/17/25 Range/Units 17:13 WBC 9.6 (4.0-11.0) 10^3/uL RBC 4.25 (4.20-5.40) 10^6/uL Hgb 13.2 (12.0-16.0) g/dL Hct 39.6 (36.0-48.0) % MCV 93.2 (81.0-99.0) fL MCH 31.1 (26.7-34.0) pg MCHC 33.3 (29.9-35.2) g/dL RDW 13.2 (11.0-15.0) % Plt Count 360 (150-450) 10^3/uL MPV 10.6 (9.5-13.5) fL Neut % (Auto) 64.3 (43.0-75.0) % Lymph % (Auto) 20.6 (20.5-60.0) % [place] % (Auto) 10.3 (1.7-12.0) % Eos % (Auto) 4.1 (0.9-7.0) % Baso % (Auto) 0.4 (0.2-2.0) % Neut # (Auto) 6.2 (1.4-6.5) 10^3/uL Lymph # (Auto) 2.0 (1.2-3.8) 10^3/uL [place] # (Auto) 1.0 H (0.3-0.8) 10^3/uL Eos # (Auto) 0.4 (0.0-0.7) 10^3/uL Baso # (Auto) 0.0 (0.0-0.1) 10^3/uL Abs Immat Gran (auto) 0.03 (0.00-0.03) 10^3/uL Imm/Tot Granulo (auto) 0.3 (0.0-0.5) % Sodium 134 L (136-145) mmol/L Potassium 4.1 (3.5-5.1) mmol/L Chloride 101 (98-107) mmol/L Carbon Dioxide 24.8 (21.0-32.0) mmol/L Anion Gap 12.3 BUN 26.0 H (7.0-18.0) mg/dL Creatinine 0.77 (0.55-1.02) mg/dL Est GFR ( Amer) >60 (>=60 mL/min/1.73m^2) Est GFR (Non-Af Amer) >60 (>=60 mL/min/1.73m^2) BUN/Creatinine Ratio 33.8 Glucose 172 H (74-106) mg/dL Calcium 9.4 (8.5-10.1) mg/dL Troponin I High Sens 18.2 (4.0-51.3) pg/mL NT-Pro-B Natriuret Pep 367.0 (<=1800.0) pg/mL Imaging Data Chest x-ray: Radiologist's impression: ITS Impressions Chest X-Ray 10/17/25 17:18 IMPRESSION: No acute process. Similar diffuse lung fibrosis Impression dictated by: Mark Anthony Prieto M.D. 10/17/2025 6:17 PM Dictation Location: [place] Electronically authenticated by: [id number] Y Date: 10/17/2025 18:17 ECG Data Attestation: I personally reviewed and interpreted this ECG as follows: (EKG on my interpretation shows sinus rhythm with rate of 87 and no acute change) Discharge Plan Discharge Chief Complaint: Upper Respiratory Infection Clinical Impression: Upper respiratory infection, Generalized weakness Patient Disposition: Admitted as Observation Time of Disposition Decision: 18:32 Condition: Good
[2025-10-17] MEDS: 0.9 % SODIUM CHLORIDE 1,000 ML 100 ML IV (18:56)
[2025-10-17] MEDS: FUROSEMIDE 40 MG/4 ML VIAL IVP (21:57)
[2025-10-17] MEDS: METHYLPREDNISOLONE SOD SUCC PF 40 MG/ML VIAL IVP (21:57)
[2025-10-17] MEDS: TRAZODONE HCL 50 MG TABLET 25 MG PO (21:57)
[2025-10-17] MEDS: ENOXAPARIN SODIUM 40 MG/0.4 ML SYRINGE SUBQ (21:58)
[2025-10-17] MEDS: INSULIN ASPART 300 UNIT/3 ML PEN SUBQ (21:58)
[2025-10-17] MEDS: ATORVASTATIN CALCIUM 10 MG TABLET PO (21:58)
[2025-10-17] MEDS: DOXYCYCLINE MONOHYDRATE 100 MG CAPSULE PO (21:58)
[2025-10-17] MEDS: INSULIN GLARGINE 300 UNIT/3 ML INSULN.PEN 10 UNIT SQ (21:59)
[2025-10-17 22:30] LABS: Glucose Urine UA NEGATIVE (NEGATIVE)
[2025-10-17 22:44] LABS: Cast Seen? NONE SEEN #/LPF (NONE SEEN); Crystals Seen? None Seen #/HPF (None Seen); Urine Culture Indicated NO
[2025-10-18] VITALS (20 sets, daily range): BP systolic 144–188; BP diastolic 80–96; PULSE 62–113; TEMP 36.4–36.5; O2SAT 90–95
[2025-10-18 05:31] LABS: Hematocrit 40.0 % (36.0-48.0); Hemoglobin 13.2 g/dL (12.0-16.0); Immature Granulocytes Abs Auto 0.02 10^3/uL (0.00-0.03); Immature Granulocytes Pct Auto 0.2 % (0.0-0.5); Lymphocytes Absolute Auto 0.8 10^3/uL (1.2-3.8); Mean Corpuscular HGB Conc 33.0 g/dL (29.9-35.2); Mean Corpuscular Hemoglobin 30.3 pg (26.7-34.0); Mean Corpuscular Volume 91.7 fL (81.0-99.0); Platelet Count 384 10^3/uL (150-450); Red Blood Count 4.36 10^6/uL (4.20-5.40); White Blood Count 8.3 10^3/uL (4.0-11.0)
[2025-10-18 05:58] LABS: Alanine Aminotransferase 19 U/L (14-59); Albumin Globulin Ratio 0.5; Albumin Level 2.9 g/dL (3.4-5.0); Alkaline Phosphatase 114 U/L (46-116); Anion Gap 12.1; Aspartate Amino Transferase 14 U/L (15-37); Blood Urea Nitrogen 29.0 mg/dL (7.0-18.0); Calcium 9.5 mg/dL (8.5-10.1); Carbon Dioxide 27.0 mmol/L (21.0-32.0); Chloride 98 mmol/L (98-107); Estimated GFR (African America >60 (>=60 mL/min/1.73m^2); Estimated GFR (Non-African Ame >60 (>=60 mL/min/1.73m^2); Globulin 5.9 g/dL; Glucose 369 mg/dL (74-106); Potassium 4.1 mmol/L (3.5-5.1); Sodium 133 mmol/L (136-145); Total Protein 8.8 g/dL (6.4-8.2)
--- NOTE | 2025-10-18 08:00 | ECG_ITS ---
[facility] Test Date: 2025-10-18 Pat Name: LAN NASH Department: Room: 2181 Gender: Female Contact Officer: : 1940 Requested By: [id number] Order Number: [id number] Reading MD: ZEENAT CHEW M.D. Measurements Intervals [place] Rate: 81 P: 58 MN: 173 QRS: 41 QRSD: 92 T: 60 QT: 388 QTc: 451 Interpretive Statements SINUS RHYTHM MINIMAL ST DEPRESSION [0.025+ mV ST DEPRESSION] Abnormal ECG Compared to ECG 10/17/2025 17:07:43 Left ventricular hypertrophy no longer present ST (T wave) deviation still present Electronically Signed On 10-18-2025 6:12:48 EST by ZEENAT CHEW M.D.
[2025-10-18] MEDS: LOSARTAN POTASSIUM 50 MG TABLET PO ×2 (08:05→21:54)
[2025-10-18] MEDS: ENOXAPARIN SODIUM 40 MG/0.4 ML SYRINGE SUBQ (08:05)
[2025-10-18] MEDS: INSULIN ASPART 300 UNIT/3 ML PEN SUBQ ×6 (08:05→21:53)
[2025-10-18] MEDS: METHYLPREDNISOLONE SOD SUCC PF 40 MG/ML VIAL IVP (08:05)
[2025-10-18] MEDS: ASPIRIN 81 MG TABLET.DR PO (08:05)
[2025-10-18] MEDS: FUROSEMIDE 20 MG/2 ML VIAL IVP ×2 (08:13→20:20)
[2025-10-18] MEDS: INSULIN GLARGINE 300 UNIT/3 ML INSULN.PEN 20 UNIT SQ ×2 (08:13→21:53)
--- NOTE | 2025-10-18 08:20 | CM.NOTE ---
Rounds made with Dr. Narvaez, discussed plan of care with pt. Pt will remain OBS status.
[2025-10-18] MEDS: DOXYCYCLINE MONOHYDRATE 100 MG CAPSULE PO ×2 (09:01→21:55)
--- NOTE | 2025-10-18 10:49 | PM.HP ---
HPI H&P: HPI History of Present Illness Chief complaint: URI, Generalized weakness Narrative: Ms. Pavon is an 84-year-old female with a known diagnosis of pulmonary fibrosis. Patient came in with cough and congestion over the last few days. No fever or chills. No production. No chest pain or palpitation. No abdominal pain, nausea or vomiting. No actual shortness of breath. Opioid HPI Opioid Management Most Recent Pain and Opioid Data: Last Pain Assessment Today, 10:05 Last ORT Total Score 0 10/17/25, 19:58 Last ORT Risk Category Low Risk 10/17/25, 19:58 Review of Systems ROS Status of ROS 10 or more systems reviewed and unremarkable except as noted in history and below [facility] Medical History (Updated 10/18/25 @ 10:51 by Julio César Narvaez MD) SDH (subdural hematoma) ?S06.5XAA - Traumatic subdural hemorrhage with loss of consciousness status unknown, initial encounter (ICD-10) SAH (subarachnoid hemorrhage) ?I60.9 - Nontraumatic subarachnoid hemorrhage, unspecified (ICD-10) Peripheral vascular insufficiency ?I73.9 - Peripheral vascular disease, unspecified (ICD-10) Pitting edema ?R60.9 - Edema, unspecified (ICD-10) 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 - Other alveolar and parieto-alveolar conditions (ICD-10) Benign neoplasm of body of pancreas ?D13.6 - Benign neoplasm of pancreas (ICD-10) Osteopenia ?M85.80 - Other specified disorders of bone density and structure, unspecified site (ICD-10) Major depressive disorder ?F32.9 - Major depressive disorder, single episode, unspecified (ICD-10) Interstitial lung disease ?J84.9 - Interstitial pulmonary disease, unspecified (ICD-10) Hyperlipidemia ?E78.5 - Hyperlipidemia, unspecified (ICD-10) Small bowel bleed not requiring more than 4 units of blood in 24 hours, ICU, or surgery ?K92.2 - Gastrointestinal hemorrhage, unspecified (ICD-10) GERD (gastroesophageal reflux disease) ?K21.9 - Gastro-esophageal reflux disease without esophagitis (ICD-10) Hypertension ?I10 - Essential (primary) hypertension (ICD-10) Diabetes ?E11.9 - Type 2 diabetes mellitus without complications (ICD-10) Back pain ?M54.9 - Dorsalgia, unspecified (ICD-10) Arthritis ?M19.90 - Unspecified osteoarthritis, unspecified site (ICD-10) Anxiety ?F41.9 - Anxiety disorder, unspecified (ICD-10) Family History (Updated 10/17/25 @ 20:14 by Alia Veras) Sister Family history of COPD (chronic obstructive pulmonary disease) Family history of diabetes mellitus Father Family history of cancer Family history of diabetes mellitus Mother Family history of diabetes mellitus Aunt Family history of diabetes mellitus Social History (Updated 10/17/25 @ 20:15 by Alia Veras) Within the past year, how often did you have a drink containing alcohol: never Score interpretation: A score less than 3 is consistent with normal alcohol consumption. Smoking status: Former smoker Non-prescribed substance use: denies use Previous occupational history: retired Highest level of school completed/degree received: high school graduate Are you now , , , , never or living with a partner: In a typical week, how many times do you talk on the telephone with family, friends, or neighbors: 3 or more times per week How often do you get together with friends or relatives: 3 or more times per week How often do you attend mandaen or alevism services: never Little interest or pleasure in doing things: not at all Feeling down, depressed, or hopeless: not at all Feel stressed/tense/nervous/anxious/difficulty sleeping: not at all Do you think of yourself as: straight/heterosexual Gender Identity: female Meds Home Medications and Allergies Home Medications ?Medication ?Instructions ?Recorded ?Confirmed ?Type albuterol sulfate 90 mcg/actuation 2 puff inhalation Q6H PRN 10/17/25 10/17/25 History aerosol inhaler shortness of breath or wheezing amitriptyline 10 mg tablet 10 mg PO BEDTIME 10/17/25 10/17/25 History amoxicillin 875 mg-potassium 1 tab PO BIDWM 10/17/25 10/17/25 History clavulanate 125 mg tablet aspirin 81 mg tablet,delayed 81 mg PO DAILY 10/17/25 10/17/25 History release (Ecotrin Low Strength) atorvastatin 10 mg tablet 10 mg PO .QHS 10/17/25 10/17/25 History benzonatate 100 mg capsule 100 mg PO Q8H PRN cough 10/17/25 10/17/25 History doxycycline hyclate 100 mg capsule 100 mg PO Q12H 10/17/25 10/17/25 History ibandronate 150 mg tablet 150 mg PO .monthly 10/17/25 10/17/25 History insulin glargine 100 unit/mL (3 10 unit subcut BID 10/17/25 10/17/25 History mL) subcutaneous pen (Lantus Solostar U-100 Insulin) insulin lispro 100 unit/mL subcut 10/17/25 History subcutaneous pen (Humalog KwikPen (U-100) Insulin) losartan 50 mg tablet 50 mg PO DAILY 10/17/25 10/17/25 History propranolol 60 mg tablet 90 mg PO .Evening 10/17/25 10/17/25 History trazodone 50 mg tablet 25 mg PO BEDTIME 10/17/25 10/17/25 History vitamins A,C,H-wutm-yglior 1 tab PO .QD 10/17/25 10/17/25 History Allergies Allergy/AdvReac Type Severity Reaction Status Date / Time No Known Drug Allergies Allergy Verified 10/17/25 16:58 Exam Narrative Exam Narrative: [pt is awake and alert. oriented to place, time and person HEENT: [place] conjunctiva and NL buccal mucosa Neck: Supple, no tenderness Endocrine: No Thyromegaly. Vascular: No JVD or carotid bruit. Lymphatic: No cervical lymphadenopathy. Chest: Bilateral fine crackles Heart RRR, no extra sound or murmur. Abd: Soft, no tenderness, no rebound and no rigidity. LE: No cyanosis or clubbing, no varices or edema. Muscle wasting and atrophy Neuro: A A O. Nl speech, comprehension and attention. Nl and symetrical motor and tone examination through out. []] Constitutional Vital Signs, click to edit/add: Last Vital Signs Temp 97.6 F 10/18/25 07:37 Pulse 87 10/18/25 10:00 Resp 18 10/18/25 07:37 BP 188/85 H 10/18/25 07:37 Pulse Ox 92 L 10/18/25 09:50 O2 Del Method Room Air 10/18/25 09:50 O2 Flow Rate 2 10/17/25 18:11 Results Labs Labs: Short CBC 10/17/25 10/18/25 Range/Units 17:13 05:11 WBC 9.6 8.3 (4.0-11.0) 10^3/uL Hgb 13.2 13.2 (12.0-16.0) g/dL Hct 39.6 40.0 (36.0-48.0) % Plt Count 360 384 (150-450) 10^3/uL BMP 10/17/25 10/18/25 17:13 05:11 Sodium 134 L 133 L Potassium 4.1 4.1 Chloride 101 98 Carbon Dioxide 24.8 27.0 BUN 26.0 H 29.0 H Creatinine 0.77 0.82 Glucose 172 H 369 H Calcium 9.4 9.5 Liver Function 10/18/25 Range/Units 05:11 Total Bilirubin 0.3 (0.2-1.0) mg/dL AST 14 L (15-37) U/L ALT 19 (14-59) U/L Alkaline Phosphatase 114 (46-116) U/L Albumin 2.9 L (3.4-5.0) g/dL Urine 10/17/25 Range/Units 22:00 Urine Color Lt. yellow (YELLOW) Urine Clarity Clear (CLEAR) Urine pH 7.0 (5.0-9.0) Ur Specific Universal 1.015 (1.005-1.025) Urine Protein Negative (NEG/TRACE) mg/dL Urine Glucose (UA) Negative (NEGATIVE) mg/dL Assessment and Plan Assessment and Plan (1) Upper respiratory infection: (2) Pulmonary fibrosis: Plan Pulmonary fibrosis for which patient follows up with jack frame tender Dr. Fitzgerald. Probable upper respiratory infection, viral versus bacterial. I was informed that the patient tested negative for COVID and influenza yesterday prior to the emergency room arrival. Mild elevation of BNP. No clinical evidence of fluid overload No shortness of breath, denied by patient. No significant hypoxemia. Doubt other possible etiologies. Chest x-ray showed pulmonary fibrosis. Patient had a CAT scan in October 2024 which showed pulmonary fibrosis. I had excepted to admit patient to the medical floor. I started the patient on albuterol, Atrovent, Solu-Medrol and doxycycline. Monitor condition over the next 24 to 48 hours Hypertension, poor control. Resume preadmission home medications. Increase losartan to twice a day. Added amlodipine 5 mg daily. I have given patient 2 doses of diuretics. Cachexia, frailty, failure to thrive, muscle wasting and atrophy, moderate protein calorie malnutrition. 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 Patient may need to have workup for weight loss and cachexia including ruling out the possibility of underlying malignancy. This may include but not limited to needing to have mammogram, breast exam, pelvic exam, EGD and colonoscopy to be handled by PCP. Meanwhile I will start patient on oral protein supplementation. 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 Continue home Lantus. I increased the dose. I started patient on sliding scale coverage. I started patient on meal insulin 5 units 3 times a day Continue to titrate and adjust to keep blood sugar between 125 and 180. DVT prophylaxis Lovenox subcutaneous injection Chronic, subacute medical conditions not listed above, abnormal labs and imaging, incidental findings seen on labs and or imaging. These would need to be addressed. Could be addressed later on or in the outpatient setting by PCP collaboration with other needed outpatient providers when time and condition are appropriate.
--- NOTE | 2025-10-18 10:55 | CA_ITS ---
Patient Name: LAN NASH MR#: [id number] : 1940 Exam Date: 10/18/2025 Ordering Doctor: ALVARO RUIZ ECHOCARDIOGRAM REPORT PROCEDURE: CA ECHO DOPPLER COMPLETE INDICATIONS: Pulm fibrosis r/o Pulm HTN COMPARISON: None. DESCRIPTION: COMPLETE ECHOCARDIOGRAM Real-time transthoracic echocardiography with 2D, M-mode, spectral and color flow Doppler performed. QUALITY: Technical quality was good. LEFT VENTRICLE: Normal chamber size. Proximal septal hypertrophy (sigmoid septum). Mild concentric hypertrophy. Global left ventricular systolic function is normal. Visual estimation of left ventricular ejection fraction is 55-60%. LV EF: Normal left ventricular ejection fraction, (>55%). DIASTOLIC: Grade 1 diastolic dysfunction. ATRIAL SEPTUM: LEFT ATRIUM: Mild dilatation. RIGHT ATRIUM: Normal chamber size. RIGHT VENTRICLE: Normal chamber size. Normal right ventricular systolic function. TRICUSPID VALVE: Normal mobility and thickness. No stenosis with trivial regurgitation. Mild pulmonary hypertension. RVSP measures 35 mmHg. MITRAL VALVE: Normal mobility and thickness. No evidence of mitral valve stenosis. There is no mitral annular calcification. Trivial mitral regurgitation. AORTIC VALVE: Normal trileaflet appearance. Thickened aortic valve. Normal leaflet mobility. No evidence of aortic valve stenosis. Mild aortic regurgitation. AORTIC ROOT: Normal diameter and appearance. The aortic root measures 3.1cm. The ascending aorta is normal in size measuring 2.7 cm. PULMONIC VALVE: Normal thickness and mobility. No stenosis. Trivial regurgitation. PERICARDIUM: No evidence of pericardial effusion. IVC: Collapses with inspirations. The IVC is normal in size measuring 1.2cm. PLEURA: CONCLUSION: 1. Mild concentric left ventricular hypertrophy with normal systolic function. LV EF is estimated at 55 to 60%. 2. Grade 1 diastolic dysfunction. 3. Normal right ventricular size and systolic function. 4. Mild aortic valve regurgitation. 5. Mildly elevated right-sided pressures. RVSP is 35 mmHg. Adult Echocardiography Procedure Report Left Ventricle LVEDD (3.7 - 5.6 cm): 3.40 cm LVESD (2.2 - 4.0 cm): 2.47 cm LVIVS thickness (0.6 - 1.2 cm): 1.45 cm LVPW thickness (0.5 - 1.0 cm): 1.04 cm e': 0.06 m/s E - e': 5.55 LVOT Max Gradient: 3.42 mm[Hg] LVOT Area (cm2): 0.92 m/s Peak Velocity (LVOT): 0.92 m/s Mean Velocity (LVOT): 0.63 m/s LVOT Diameter 1.66 cm Left Ventricular Ejection Fraction: 55-60 % Left Atrium LA Volume Index (2D A2C): 41.18 ml/m2 Left Atrium Systolic Dimension: 3.73 cm Mitral Valve MV E to A Ratio: 0.35 Mitral Valve A-Wave Peak Velocity: 0.97 m/s Mitral Valve E-Wave Peak Velocity: 0.34 m/s Right Ventricle RV Internal Diastolic Dimension: 2.76 cm Aorta AO Root Diam: 3.08 cm Ascending Ao Diam: 2.66 cm Aortic Valve AoV Area (Peak Mauricio): 1.65 cm2, 1.65 cm2 AoV Area (VTI): 1.68 cm2, 1.68 cm2 Deceleration [place]: 1.83 m/s2 Pressure Half-Time: 599.82 ms Peak Velocity(Antegrade Flow): 1.21 m/s Peak Gradient(Antegrade Flow): 5.85 mm[Hg] Mean Velocity(Antegrade Flow): 0.83 m/s Mean Gradient(Antegrade Flow): 3.10 mm[Hg] Velocity Time Integral: 21.98 cm Tricuspid Valve Peak Velocity (Regurgitant Flow): 2.83 m/s, 2.84 m/s, 2.77 m/s Pulmonic Valve Peak Velocity: 0.92 m/s Peak Gradient: 3.33 mm[Hg], 3.46 mm[Hg] Right Atrium Right Atrium Systolic Pressure: 22.43 ml, 22.43 ml Dictated by: Abhay Peres M.D. on 10/19/2025 at 16:48 Approved by: Abhay Peres M.D. on 10/19/2025 at 16:52
[2025-10-18] MEDS: AMLODIPINE BESYLATE 5 MG TABLET PO ×2 (12:06→20:20)
--- NOTE | 2025-10-18 15:10 | CM.NOTE ---
Medicare Outpatient Observation notice reviewed and discussed with patient and patient's daughter. No questions at this time. Original copy signed and returned to patient. Copy placed in patients chart.
[2025-10-18] MEDS: IPRATROPIUM/ALBUTEROL SULFATE 3 ML AMPUL.NEB IH ×2 (15:11→21:32)
[2025-10-18] MEDS: PROPRANOLOL HCL 20 MG TABLET 90 MG PO (20:21)
[2025-10-18] MEDS: AMITRIPTYLINE HCL 10 MG TABLET PO (21:54)
[2025-10-18] MEDS: TRAZODONE HCL 50 MG TABLET 25 MG PO (21:54)
[2025-10-18] MEDS: ATORVASTATIN CALCIUM 10 MG TABLET PO (21:54)
[2025-10-19] VITALS (11 sets, daily range): BP systolic 138–163; BP diastolic 75–76; PULSE 67–80; TEMP 36.4–36.7; O2SAT 90–94
[2025-10-19 06:09] LABS: Anion Gap 12.8; Blood Urea Nitrogen 52.0 mg/dL (7.0-18.0); Calcium 10.0 mg/dL (8.5-10.1); Carbon Dioxide 27.9 mmol/L (21.0-32.0); Chloride 98 mmol/L (98-107); Estimated GFR (African America >60 (>=60 mL/min/1.73m^2); Estimated GFR (Non-African Ame 57 (>=60 mL/min/1.73m^2); Glucose 213 mg/dL (74-106); Potassium 3.7 mmol/L (3.5-5.1); Sodium 135 mmol/L (136-145)
[2025-10-19] MEDS: INSULIN ASPART 300 UNIT/3 ML PEN SUBQ ×4 (09:12→12:10)
[2025-10-19] MEDS: INSULIN GLARGINE 300 UNIT/3 ML INSULN.PEN 20 UNIT SQ (09:12)
[2025-10-19] MEDS: AMLODIPINE BESYLATE 5 MG TABLET PO (09:13)
[2025-10-19] MEDS: LOSARTAN POTASSIUM 50 MG TABLET PO (09:13)
[2025-10-19] MEDS: DOXYCYCLINE MONOHYDRATE 100 MG CAPSULE PO (09:13)
[2025-10-19] MEDS: ASPIRIN 81 MG TABLET.DR PO (09:14)
[2025-10-19] MEDS: ENOXAPARIN SODIUM 40 MG/0.4 ML SYRINGE SUBQ (09:14)
[2025-10-19] MEDS: POTASSIUM CHLORIDE 10 MEQ ER TABLET 20 MEQ PO (09:15)
[2025-10-19] MEDS: FUROSEMIDE 20 MG/2 ML VIAL 30 MG IVP (09:16)
--- NOTE | 2025-10-19 09:54 | PM.DS1 ---
DS: Providers Provider Date of admission: 10/17/25 19:23 Primary care physician: Non-Staff Physician, Consults: 10/18/25 Occupational Therapy Eval and Treat Routine Reason for consultation: Weakness Has provider been notified: Yes Physical Therapy Eval and Treat Routine Reason for consultation: Weakness Has provider been notified: Yes DS: Diagnosis Discharge Diagnosis (1) Upper respiratory infection: (2) Pulmonary fibrosis: Plan As listed above, below and others that are not listed DS: Summary Hospital Course Hospital Course: Mrs. Pavon is an 84-year-old female who came to the hospital with cough and congestion. 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 Probable upper respiratory infection, viral versus bacterial. I was informed that the patient tested negative for COVID and influenza yesterday prior to the emergency room arrival. Borderline hypoxic respiratory failure Mild elevation of BNP. No clinical evidence of fluid overload No shortness of breath, denied by patient. No significant hypoxemia. Doubt other possible etiologies. Chest x-ray showed pulmonary fibrosis. Patient had a CAT scan in October 2024 which showed pulmonary fibrosis. I had excepted to admit patient to the medical floor. I started the patient on albuterol, Atrovent, Solu-Medrol and doxycycline. I requested echocardiogram. Echocardiogram to rule out pulmonary hypertension and dose to see if she has any systolic and diastolic heart failure. Echocardiogram was done but not read yet. Home O2 evaluation will be completed. Patient is to follow-up with Dr. aDi on a tapering dose of prednisone. Continuation of oral antibiotic. Hypertension, poor control. Hypertensive urgency on admission. Resume preadmission home medications. Increase losartan to twice a day. Added amlodipine 5 mg daily. Increase to 10 mg for better blood pressure control. Discontinue propranolol. Start patient on Toprol-XL 25 mg daily. Discharge patient on torsemide 10 mg daily. Echocardiogram is pending. Cachexia, frailty, failure to thrive, muscle wasting and atrophy, moderate protein calorie malnutrition. 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 Patient may need to have workup for weight loss and cachexia including ruling out the possibility of underlying malignancy. This may include but not limited to needing to have mammogram, breast exam, pelvic exam, EGD and colonoscopy to be handled by PCP. Meanwhile I will start patient on oral protein supplementation. 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 Continue home Lantus. I increased the dose. I started patient on sliding scale coverage. I started patient on meal insulin 5 units 3 times a day Continue to titrate and adjust to keep blood sugar between 125 and 180. DVT prophylaxis Lovenox subcutaneous injection Chronic, subacute medical conditions not listed above, abnormal labs and imaging, incidental findings seen on labs and or imaging. These would need to be addressed. Could be addressed later on or in the outpatient setting by PCP collaboration with other needed outpatient providers when time and condition are appropriate. Patient has multiple complex medical issues as listed above and others that are not listed. All appear to be stable. Patient is doing well. She is back to baseline state. Blood pressure is under much better control at this time, I do not have any clear or strong clinical justification to extend inpatient hospitalization. Patient however will require close and frequent monitoring as well as additional work-up, investigation and therapeutic intervention that could take place from this point on post discharge. That is to prevent relapse, decompensation, rehospitalization and other medical implications. Discharge medications as listed are not final or set in stone. Primary care doctor and other out patient providers will need to titrate and adjust medications as soon as the first post discharge visit based on clinical progression, vitals signs, volume status and other related organs function. I instructed patient to ask her primary care doctor to obtain [facility] record entirely to address abnormalities seen on labs and imaging that I have and have not addressed during this hospitalization, follow-up on pending blood work, imaging and pathology is if available and to follow-up on needed medical care in the outpatient setting. Time Spent with Patient Time attestation: Total time spent providing and/or coordinating discharge services: Exam Constitutional Vital Signs, click to edit/add: Last Vital Signs Temp 97.5 F L 10/19/25 07:36 Pulse 70 10/19/25 08:00 Resp 18 10/19/25 07:37 BP 163/75 H 10/19/25 07:36 Pulse Ox 92 L 10/19/25 07:36 O2 Del Method Room Air 10/19/25 07:36 O2 Flow Rate 2 10/17/25 18:11 DS: Data Data Completed and Pending Labs on day of discharge: Labs from last 24 hours 10/19/25 10/18/25 05:02 21:33 Sodium 135 L Potassium 3.7 Chloride 98 Carbon Dioxide 27.9 Anion Gap 12.8 BUN 52.0 H Creatinine 0.93 Est GFR ( Amer) >60 Est GFR (Non-Af Amer) 57 L BUN/Creatinine Ratio 55.9 Glucose 213 H Calcium 10.0 POC Glucose 216 H Discharge Plan Discharge Disposition: Home Health Service Condition: Good Discharge Medications: New amlodipine 10 mg tablet 10 mg PO DAILY Qty: 30 0RF metoprolol succinate [Toprol XL] 25 mg tablet extended release 24 hr 25 mg PO DAILY Qty: 30 2RF prednisone 10 mg tablet 10 mg PO BID Qty: 10 0RF torsemide 10 mg tablet 10 mg PO DAILY Qty: 30 1RF Continued amitriptyline 10 mg tablet 10 mg PO BEDTIME atorvastatin 10 mg tablet 10 mg PO .QHS doxycycline hyclate 100 mg capsule 100 mg PO Q12H Rx Instructions: 10/16 THRU 10/23/25 benzonatate 100 mg capsule 100 mg PO Q8H PRN (Reason: cough) insulin lispro [Humalog KwikPen Insulin] 100 unit/mL insulin pen SUBCUT ibandronate 150 mg tablet 150 mg PO .monthly trazodone 50 mg tablet 25 mg PO BEDTIME aspirin [Ecotrin Low Strength] 81 mg tablet,delayed release (DR/EC) 81 mg PO DAILY vitamins A,C,[id number] [PreserVision AREDS] 1 tab PO .QD albuterol sulfate 90 mcg/actuation HFA aerosol inhaler 2 puff INHALATION Q6H PRN (Reason: shortness of breath or wheezing) Changed losartan 50 mg tablet 50 mg PO BID Qty: 60 1RF insulin glargine [Lantus Solostar U-100 Insulin] 100 unit/mL (3 mL) insulin pen 15 unit SUBCUT BID Qty: 0 0RF Discontinued amoxicillin-pot clavulanate 875-125 mg tablet 1 tab PO BIDWM Patient Comments: 10/16 THRU 10/23/25 propranolol 60 mg tablet 90 mg PO .Evening Print Language: [place] Islander Activity Restrictions/Additional Instructions: I may not have addressed or treated all of your medical illnesses or the abnormal blood work or imaging studies during this hospitalization. Please ask your primary care provider to obtain [facility] records entirely to follow up on all of the abnormal physical, laboratory, and imaging findings that I have not addressed. Please return back to the emergency room or seek medical attention if your symptoms worsen or return. Discharging you from [facility] does not mean that your medical care ends here and now. You may still need additional monitoring, work up, investigation, and treatment plan to be handled from this point on by out patient providers including your primary care provider and specialists. I made some changes on your blood pressure medications. Please follow the new regimen. Please check your blood pressure daily. Please communicate with your doctor if your systolic blood pressure (the upper blood pressure number ) is consistently above 170 or less than 120 Discharge medications as listed are not final or set in stone. Primary care doctor and other out patient providers will need to titrate and adjust medications as soon as the first post discharge visit based on clinical progression, vitals signs, volume status and other related organs function. For any medication question, please contact your retail pharmacist or your primary care provider. Thank you. Forms: Portal Instructions Referrals: [facility] [Physician, Family Practice] Referral Note: For pulmonary fibrosis Follow Up Appointments: Follow up with PCP, Dr. Adan on October 30 at 1:00pm
[2025-10-19] MEDS: IPRATROPIUM/ALBUTEROL SULFATE 3 ML AMPUL.NEB IH (10:11)
--- NOTE | 2025-10-19 10:15 | SWNOTE1 ---
Pt is discharging today. SW stopped in and spoke with pt. She is sitting up in chair eating breakfast. She let SW know she is going home today. SW did speak with physical therapy in the hallway and pt did well ambulating up and down the cohen. Pt felt she did well too. Pt's son is home for the holidays and he will be picking her up. Request from family for pt to have home health services set up. SW asked pt if she was in agreement with this? Pt is in agreement. Pt's is in hospital as well and he is set up with [facility]. Pt in agreement to use [facility] as well since they will be coming to the home. [facility] to send referral. SW spoke to nurse and respiratory completed walk test and pt does not qualify for home oxygen at this time. Referral sent to [facility]. Referral included face sheet, ED note, H&P, provider notes, case management report, and PT note.
--- NOTE | 2025-10-19 10:17 | P.EN_ITS ---
Event Note Event Note: I called her daughter Piter and gave her update on her condition, status and treatment plan. I answered all her questions. There is a very appreciative of the care that her mom had received here at [facility]. Patient did not qualify for oxygen at rest nor with exertion
--- NOTE | 2025-10-19 12:09 | SWNOTE1 ---
[facility] called [facility] and spoke to Adriana. Adriana received the referral and is reviewing. She did ask who the PCP was? [facility] provided the name and phone number to Adriana so she could call and confirm they will follow. Pt will discharge today with [facility].
--- NOTE | 2025-10-19 12:10 | SWNOTE1 ---
[facility] faxed dc summary, dc med rec, and CRF, to [facility].
--- NOTE | 2025-10-19 12:12 | CM.NOTE ---
Rounds made with Dr. Narvaez, discussed plan of care with pt. Pt will discharge home today with [facility].
--- NOTE | 2025-10-22 13:44 | CM.DCFOLLOWU ---
Person spoke with:Michelle How are you feeling? Better How is your pain? No pain Did you understand your discharge instructions? Yes Do you have any questions about your discharge instructions? No Were you given any prescriptions at discharge? Yes Were you able to get your prescriptions filled? Yes Do you understand how to take your medications as ordered? Yes Do you have any questions about your follow up appointment and do you plan to keep your follow up appointment? No questions. Yes I plan on keeping my follow up appt. Is there anything else that you would like to discuss? No Questions/Comments/Concerns/Other:
== END 2025-10-19 12:40 | disposition home health service (06) ==
LOC: ER 18:32 → MS 19:28
PROVIDERS: Admitting Provider Internal Medicine; Emergency Provider Emergency Medicine; Visit Provider Internal Medicine
DX: J84.10 Pulmonary fibrosis, unspecified (principal); J06.9 Acute upper respiratory infection, unspecified; R53.1 Weakness; J84.9 Interstitial pulmonary disease, unspecified; Z87.891 Personal history of nicotine dependence; I10 Essential (primary) hypertension; R64 Cachexia; R62.7 Adult failure to thrive; M62.58 Muscle wasting and atrophy, not elsewhere classified, other site; E44.0 Moderate protein-calorie malnutrition; E11.65 Type 2 diabetes mellitus with hyperglycemia; Z79.4 Long term (current) use of insulin; I16.0 Hypertensive urgency; I35.1 Nonrheumatic aortic (valve) insufficiency; Z68.26 Body mass index [BMI] 26.0-26.9, adult
CPT/HCPCS: 36415; 71045; 80048; 80053; 81001; 82948; 83880; 84484; 85025; 87040; 93005; 93306; 94640; 94761; 96372; 96374; 96375; 96376; 97161; 97165; 99285; G0378; J1650; J1938; J2919